=== PATIENT | female | born 1960 | race African-American/Black ===

== ENCOUNTER → 2016-07-06 | Outpatient (CLI) | payer MEDICARE, MEDICAID ==
[2016-07-06 10:54] LABS: HEMATOCRIT 27.6 % (36.0-47.0); HEMOGLOBIN 8.7 g/dL (12.0-15.5); HGB HCT DIFFERENCE -1.5; MEAN CORPUSCULAR HEMOGLOBIN 25.7 pg (27.0-33.4); MEAN CORPUSCULAR HGB CONC 31.7 g/dL (32.0-36.0); MEAN CORPUSCULAR VOLUME 81 fl (80-97); RED CELL DISTRIBUTION WIDTH 18.2 % (11.5-14.0); WHITE BLOOD COUNT 9.4 10^3/uL (4.0-10.5)
[2016-07-06 11:20] LABS: ANION GAP 15 (5-19); BLOOD UREA NITROGEN 15 mg/dL (7-20); CALCIUM 9.7 mg/dL (8.4-10.2); CARBON DIOXIDE 26 mmol/L (22-30); CHLORIDE 103 mmol/L (98-107); GLUCOSE 111 mg/dL (75-110); POTASSIUM 4.8 mmol/L (3.6-5.0); SODIUM 143.6 mmol/L (137-145)
== END ==
LOC: OD 08:47
PROVIDERS: ATTEND Internal Medicine Nephrology
DX: E11.22 Type 2 diabetes mellitus with diabetic chronic kidney disease (principal); N18.3 Chronic kidney disease, stage 3 (moderate); D63.1 Anemia in chronic kidney disease; I50.9 Heart failure, unspecified
CPT/HCPCS: 36415; 80048; 85027

== ENCOUNTER 2016-07-11 23:40 | Emergency (ER) | payer MEDICARE, MEDICAID ==
[2016-07-12] MEDS ORDERED: NITROGLYCERIN 2% OINTMENT 1 GM PACKET TP ONE (00:27)
--- NOTE | 2016-07-12 00:27 | ER Document Report ---
ED Cardiac - General Chief Complaint: Chest Wall Pain Stated Complaint: CHEST PAIN Time seen by provider: 00:25 Mode of Arrival: Ambulatory Information source: Patient Notes: This is a 56-year-old female with a history of morbid obesity, COPD (2 L nasal cannula, CPAP at night), CHF, anemia. The patient was brought in by ambulance because of some shortness of breath. Patient states she was having a bowel movement, when she noticed some bright red per rectum and some "tarry stools". Patient states she got very nervous and started having some shortness of breath. She states she had 15 minutes chest heaviness but she thinks it was more the shortness of breath. Currently, she denies any chest pain or shortness of breath. TRAVEL OUTSIDE OF THE [place] IN LAST 30 DAYS: No - HPI Patient complains to provider of: Shortness of breath Was the onset of pain: Gradual Chest pain location: No: Substernal, Axillary, Back, Pleuritic, Under breast, Other Quality of pain: denies: None, Constant, Intermittent, Mild, Moderate, Severe, Achy, Burning, Constriction, Cramping, Crushing, Dull, Heaviness, Incisional, Indigestion, Numbness, Pressure, Radiating, Sharp, Stabbing, Tearing, Throbbing , Tightness, Tingling, Other Severity now: None Severity at worst: Mild Pain level currently: Denies Chest pain precipitating factors: Mental Exertion/Stress Cardiac risk factors: Hypertension Positive cardiac history: Yes Associated symptoms: Shortness of breath. denies: Cool extremities, Fever/ chills, Hypotension Exacerbated by: Denies Relieved by: Nothing Similar symptoms previously: Yes Recently seen / treated by doctor: Yes - Related Data Allergies/Adverse Reactions: cephalexin monohydrate [From Keflex] Allergy (Unknown, Verified 05/09/16 01:16) codeine [Codeine] Allergy (Unknown, Verified 05/09/16 01:16) dicyclomine HCl [From Bentyl] Allergy (Unknown, Verified 05/09/16 01:16) hydrocodone bitartrate [From Vicodin] Allergy (Unknown, Verified 05/09/16 01:16) meloxicam [From Mobic] Allergy (Unknown, Verified 05/09/16 01:16) meperidine HCl [From Demerol (PF)] Allergy (Unknown, Verified 05/09/16 01:16) morphine [Morphine] Allergy (Unknown, Verified 05/09/16 01:16) naproxen sodium [From Naprelan CR Dosepak] Allergy (Unknown, Verified 05/09/16 01:16) nitrofurantoin [From Macrobid] Allergy (Unknown, Verified 05/09/16 01:16) pantoprazole sodium [From Protonix] Allergy (Unknown, Verified 05/09/16 01:16) Penicillins Allergy (Unknown, Verified 05/09/16 01:16) Sulfa (Sulfonamide Antibiotics) Allergy (Unknown, Verified 05/09/16 01:16) tramadol HCl [From Ultracet] Allergy (Unknown, Verified 05/09/16 01:16) lamotrigine [From Lamictal] Allergy (Verified 05/09/16 01:16) rash oxycodone HCl [From Percocet] Adverse Reaction (Unknown, Verified 05/09/16 01:16 ) Past Medical History - General Information source: Patient - Social History Smoking Status: Never Smoker Cigarette use (# per day): No Chew tobacco use (# tins/day): No Frequency of alcohol use: None Drug Abuse: None Lives with: Family Family History: Reviewed & Not Pertinent Patient has suicidal ideation: No Patient has homicidal ideation: No - Past Medical History Cardiac Medical History: Reports: Hx Congestive Heart Failure, Hx Coronary Artery Disease, Hx Heart Attack, Hx Hypercholesterolemia, Hx Hypertension, Hx Peripheral Vascular Disease Denies: Hx Heart Murmur Pulmonary Medical History: Reports: Hx Asthma, Hx Bronchitis, Hx COPD - Oxygen use at home, inhaler., Hx Sleep Apnea Denies: Hx Respiratory Failure, Hx Tuberculosis Neurological Medical History: Reports: Hx Migraine, Hx Seizures Endocrine Medical History: Reports: Hx Diabetes Mellitus Type 2, Hx Hyperthyroidism, Hx Hypothyroidism Renal/ Medical History: Reports: Hx End Stage Renal Disease - Stage IV, Hx Renal Insufficiency GI Medical History: Reports: Hx Gastroesophageal Reflux Disease Musculoskeltal Medical History: Reports Hx Fibromyalgia, Reports Hx Muscle Weakness Psychiatric Medical History: Reports: Hx Bipolar Disorder, Hx Depression, Hx Post Traumatic Stress Disorder, Hx Schizophrenia Past Surgical History: Reports: Hx Cardiac Catheterization, Hx Section - x2, Hx Coronary Artery Bypass Graft, Hx Coronary Stent - x2, Hx Hysterectomy, Hx Orthopedic Surgery - christine knee surgery, christine feet surgery, Hx Tubal Ligation - Immunizations Hx Diphtheria, Pertussis, Tetanus Vaccination: Yes Hx Pneumococcal Vaccination: 04/02/13 Review of Systems - Review of Systems Constitutional: denies: Chills, Fever EENT: No symptoms reported Cardiovascular: See HPI Respiratory: See HPI Gastrointestinal: See HPI Genitourinary: No symptoms reported Female Genitourinary: No symptoms reported Musculoskeletal: No symptoms reported Skin: No symptoms reported Hematologic/Lymphatic: No symptoms reported Neurological/Psychological: No symptoms reported Physical Exam - Vital signs Vitals: Temp Pulse Ox 97.7 F 100 07/11/16 23:53 07/11/16 23:53 Notes: Physical exam: GENERAL: 56-year-old female, alert and oriented 3, no acute distress HEAD: Atraumatic, normocephalic. EYES: Pupils equal round and reactive to light, extraocular movements intact, sclera anicteric, conjunctiva are normal. ENT: TMs normal, nares patent, oropharynx clear without exudates. Moist mucous membranes. NECK: Normal range of motion, supple without lymphadenopathy or JVD. LUNGS: Breath sounds clear to auscultation bilaterally and equal. No wheezes rales or rhonchi. HEART: Regular rate and rhythm without murmurs, rubs or gallops. ABDOMEN: Soft, nontender, normoactive bowel sounds. No guarding, no rebound. No masses appreciated. Rectum: No external hemorrhoids or lesions, Brown stool guaiac negative. EXTREMITIES: Normal range of motion, no pitting or edema. No clubbing or cyanosis. NEUROLOGICAL: Cranial nerves II through XII grossly intact. Normal speech, normal gait. PSYCH: Normal mood, normal affect. SKIN: Warm, Dry, normal turgor, no rashes or lesions noted. Course - Re-evaluation Re-evalutation: 07/12/16 02:50 Note: The patient is comfortable right now. She denies having any further chest pain or shortness of breath. She thinks she got anxious when she saw the blood in the stool and is felt fine ever since. 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 I ended up doing a rectal exam twice to ensure that there was no active bleeding. The stool sample showed no blood. The patient's vital signs and blood work is been good. 07/12/16 02:51 - Vital Signs Vital signs: Temp Pulse Resp BP Pulse Ox 97.7 F 14 100 07/11/16 23:53 07/12/16 00:25 07/12/16 00:25 - Laboratory Result Diagrams: 07/12/16 01:52 07/12/16 01:52 Laboratory results interpreted by me: 07/12/16 07/12/16 01:52 01:52 RBC 3.32 L Hgb 8.5 L Hct 26.3 L MCV 79 L MCH 25.6 L RDW 18.0 H Est GFR ( Amer) 58 L Est GFR (Non-Af Amer) 48 L Glucose 69 L Alkaline Phosphatase 145 H - Diagnostic Test Radiology reviewed: Image reviewed, Reports reviewed - Chest x-ray is It's read as congestive heart failure/pulmonary edema, however, the x-ray is limited significantly by body habitus. - EKG Interpretation by Me Rate: Normal Rhythm: NSR - EKG shows normal sinus rhythm with a ventricular rate of 80, no acute ST-T wave changes Discharge - Discharge Clinical Impression: dyspnea, blood in the stool Condition: Stable Disposition: HOME, SELF-CARE Additional Instructions: Recommendations: Continue current medicines. Follow-up with Dr. Gaines as later this morning. Return to the emergency room for any worsening chest pain or shortness of breath. Referrals: JASSON MARTINI MD [Primary Care Provider] - Follow up in 3-5 days ANTOINE GAINES MD [ACTIVE STAFF] - Follow up tomorrow (Follow-up with Dr. Gaines as planned tomorrow.)
[2016-07-12 02:13] LABS: ABSOLUTE EOSINOPHILS # (AUTO) 0.3 10^3/uL (0.0-0.6); ABSOLUTE MONOCYTES (AUTO) 0.5 10^3/uL (0.1-1.4); BASOPHILS % (AUTO) 0.4 % (0-2); EOSINOPHILS % (AUTO) 3.8 % (0-6); HEMATOCRIT 26.3 % (36.0-47.0); HEMOGLOBIN 8.5 g/dL (12.0-15.5); HGB HCT DIFFERENCE -0.8; MEAN CORPUSCULAR HEMOGLOBIN 25.6 pg (27.0-33.4); MEAN CORPUSCULAR HGB CONC 32.2 g/dL (32.0-36.0); MEAN CORPUSCULAR VOLUME 79 fl (80-97); MONOCYTES % (AUTO) 5.8 % (3-13); RED BLOOD COUNT 3.32 10^6/uL (3.72-5.28); WHITE BLOOD COUNT 7.9 10^3/uL (4.0-10.5)
[2016-07-12 02:29] LABS: ALANINE AMINOTRANSFERASE 28 U/L (9-52); ALKALINE PHOSPHATASE 145 U/L (38-126); ANION GAP 12 (5-19); ASPARTATE AMINO TRANSFERASE 19 U/L (14-36); BILIRUBIN,TOTAL 0.2 mg/dL (0.2-1.3); BLOOD UREA NITROGEN 16 mg/dL (7-20); CALCIUM 9.4 mg/dL (8.4-10.2); CARBON DIOXIDE 30 mmol/L (22-30); CHLORIDE 103 mmol/L (98-107); CREATINE KINASE 48 U/L (30-135); CREATININE RESULT 1.17 mg/dL (0.52-1.25); GLUCOSE 69 mg/dL (75-110); POTASSIUM 4.6 mmol/L (3.6-5.0); TOTAL PROTEIN 7.7 g/dL (6.3-8.2)
[2016-07-12 02:37] LABS: CREATINE KINASE MB < 0.22 ng/mL (<4.55); TROPONIN I < 0.012 ng/mL
[2016-07-12 03:11] VITALS: BP 121/78
--- NOTE | 2016-07-12 07:20 | EKG REPORT ---
SEVERITY:- NORMAL ECG - SINUS RHYTHM : Confirmed by: Guillermina King MD 12-Jul-2016 07:19:59
== END 2016-07-12 03:31 | disposition home or self-care (01) ==
LOC: ER 23:40
DX: R06.00 Dyspnea, unspecified (principal); K92.1 Melena; R07.81 Pleurodynia; J44.9 Chronic obstructive pulmonary disease, unspecified; E66.01 Morbid (severe) obesity due to excess calories; J45.909 Unspecified asthma, uncomplicated; E11.22 Type 2 diabetes mellitus with diabetic chronic kidney disease; I13.2 Hypertensive heart and chronic kidney disease with heart failure and with stage 5 chronic kidney disease, or end stage renal disease; N18.5 Chronic kidney disease, stage 5; I50.9 Heart failure, unspecified; I25.10 Atherosclerotic heart disease of native coronary artery without angina pectoris; E78.00 Pure hypercholesterolemia, unspecified; Z99.81 Dependence on supplemental oxygen; Z88.2 Allergy status to sulfonamides; Z88.6 Allergy status to analgesic agent; Z88.0 Allergy status to penicillin; Z88.3 Allergy status to other anti-infective agents; I25.2 Old myocardial infarction
CPT/HCPCS: 93005; 99285; 36415; 82553; 82550; 85025; 82272; 80053; 84484; 71010; 93010; A9270

== ENCOUNTER 2016-07-27 19:31 | Emergency (ER) | payer MEDICARE, MEDICAID ==
--- NOTE | 2016-07-27 21:05 | ER Document Report ---
ED Medical Screen (RME) - General Stated Complaint: LEG SWELLING Notes: 56 yo female brought to Ed by EMS c/o leg/feet swelling, pain all over x 5 days. pt poor historian. EMS reports patient has not taken meds x 5 days. reports she hides her meds from her family and she cant remember where she put them, but patient reports she is taking her meds as prescribed. also c/o rectal bleeding x 1 month. Has been seen by her PCM, Dr Sharp for rectal bleeding last month. no chest pain. + shortness of breath no fever TRAVEL OUTSIDE OF THE [place] IN LAST 30 DAYS: No - Related Data Allergies/Adverse Reactions: cephalexin monohydrate [From Keflex] Allergy (Unknown, Verified 05/09/16 01:16) codeine [Codeine] Allergy (Unknown, Verified 05/09/16 01:16) dicyclomine HCl [From Bentyl] Allergy (Unknown, Verified 05/09/16 01:16) hydrocodone bitartrate [From Vicodin] Allergy (Unknown, Verified 05/09/16 01:16) meloxicam [From Mobic] Allergy (Unknown, Verified 05/09/16 01:16) meperidine HCl [From Demerol (PF)] Allergy (Unknown, Verified 05/09/16 01:16) morphine [Morphine] Allergy (Unknown, Verified 05/09/16 01:16) naproxen sodium [From Naprelan CR Dosepak] Allergy (Unknown, Verified 05/09/16 01:16) nitrofurantoin [From Macrobid] Allergy (Unknown, Verified 05/09/16 01:16) pantoprazole sodium [From Protonix] Allergy (Unknown, Verified 05/09/16 01:16) Penicillins Allergy (Unknown, Verified 05/09/16 01:16) Sulfa (Sulfonamide Antibiotics) Allergy (Unknown, Verified 05/09/16 01:16) tramadol HCl [From Ultracet] Allergy (Unknown, Verified 05/09/16 01:16) lamotrigine [From Lamictal] Allergy (Verified 05/09/16 01:16) rash oxycodone HCl [From Percocet] Adverse Reaction (Unknown, Verified 05/09/16 01:16 ) Past Medical History - Past Medical History Cardiac Medical History: Reports: Hx Congestive Heart Failure, Hx Coronary Artery Disease, Hx Heart Attack, Hx Hypercholesterolemia, Hx Hypertension, Hx Peripheral Vascular Disease Denies: Hx Heart Murmur Pulmonary Medical History: Reports: Hx Asthma, Hx Bronchitis, Hx COPD - Oxygen use at home, inhaler., Hx Sleep Apnea Denies: Hx Respiratory Failure, Hx Tuberculosis Neurological Medical History: Reports: Hx Migraine, Hx Seizures Endocrine Medical History: Reports: Hx Diabetes Mellitus Type 2, Hx Hyperthyroidism, Hx Hypothyroidism Renal/ Medical History: Reports: Hx End Stage Renal Disease - Stage IV, Hx Renal Insufficiency GI Medical History: Reports: Hx Gastroesophageal Reflux Disease Musculoskeltal Medical History: Reports Hx Fibromyalgia, Reports Hx Muscle Weakness Psychiatric Medical History: Reports: Hx Bipolar Disorder, Hx Depression, Hx Post Traumatic Stress Disorder, Hx Schizophrenia Past Surgical History: Reports: Hx Cardiac Catheterization, Hx Section - x2, Hx Coronary Artery Bypass Graft, Hx Coronary Stent - x2, Hx Hysterectomy, Hx Orthopedic Surgery - christine knee surgery, christine feet surgery, Hx Tubal Ligation - Immunizations Hx Diphtheria, Pertussis, Tetanus Vaccination: Yes
[2016-07-27] MEDS ORDERED: FUROSEMIDE INJ/PF 40 MG/4 ML SDV IV ONE (22:47)
--- NOTE | 2016-07-27 22:56 | ER Document Report ---
ED General - General Chief Complaint: Leg Swelling Stated Complaint: LEG SWELLING Notes: Patient is a 56-year-old female who has history of CHF who presents with leg and feet swelling. She also some swelling and her upper extremities as well. Patient says that she is on Lasix 60 mg twice a day. She says that she's had increased swelling over last 2 weeks. She also says she wears oxygen at home. She has a concentrator to fill are tense. She says she does not feel her tanks but subsequently they fill them she gets home. She does have some baseline shortness of breath but is not worse than usual. She's had no fevers. No chest pain. No other complaints at this time. The EMS report was that the patient told them that she had not had her Lasix for 2 days. She tells me that she has taken her Lasix. TRAVEL OUTSIDE OF THE [place] IN LAST 30 DAYS: No - Related Data Allergies/Adverse Reactions: cephalexin monohydrate [From Keflex] Allergy (Unknown, Verified 07/28/16 00:47) codeine [Codeine] Allergy (Unknown, Verified 07/28/16 00:47) dicyclomine HCl [From Bentyl] Allergy (Unknown, Verified 07/28/16 00:47) hydrocodone bitartrate [From Vicodin] Allergy (Unknown, Verified 07/28/16 00:47) meloxicam [From Mobic] Allergy (Unknown, Verified 07/28/16 00:47) meperidine HCl [From Demerol (PF)] Allergy (Unknown, Verified 07/28/16 00:47) morphine [Morphine] Allergy (Unknown, Verified 07/28/16 00:47) naproxen sodium [From Naprelan CR Dosepak] Allergy (Unknown, Verified 07/28/16 00:47) nitrofurantoin [From Macrobid] Allergy (Unknown, Verified 07/28/16 00:47) pantoprazole sodium [From Protonix] Allergy (Unknown, Verified 07/28/16 00:47) Penicillins Allergy (Unknown, Verified 07/28/16 00:47) Sulfa (Sulfonamide Antibiotics) Allergy (Unknown, Verified 07/28/16 00:47) tramadol HCl [From Ultracet] Allergy (Unknown, Verified 07/28/16 00:47) lamotrigine [From Lamictal] Allergy (Verified 07/28/16 00:47) rash oxycodone HCl [From Percocet] Adverse Reaction (Unknown, Verified 07/28/16 00:47 ) Past Medical History - Social History Smoking Status: Never Smoker Chew tobacco use (# tins/day): No Frequency of alcohol use: None Drug Abuse: None Family History: Reviewed & Not Pertinent Patient has suicidal ideation: No Patient has homicidal ideation: No - Past Medical History Cardiac Medical History: Reports: Hx Congestive Heart Failure, Hx Coronary Artery Disease, Hx Heart Attack, Hx Hypercholesterolemia, Hx Hypertension, Hx Peripheral Vascular Disease Denies: Hx Heart Murmur Pulmonary Medical History: Reports: Hx Asthma, Hx Bronchitis, Hx COPD - Oxygen use at home, inhaler., Hx Sleep Apnea Denies: Hx Respiratory Failure, Hx Tuberculosis Neurological Medical History: Reports: Hx Migraine, Hx Seizures Endocrine Medical History: Reports: Hx Diabetes Mellitus Type 2, Hx Hyperthyroidism, Hx Hypothyroidism Renal/ Medical History: Reports: Hx End Stage Renal Disease - Stage IV, Hx Renal Insufficiency. Denies: Hx Peritoneal Dialysis GI Medical History: Reports: Hx Gastroesophageal Reflux Disease Musculoskeltal Medical History: Reports Hx Fibromyalgia, Reports Hx Muscle Weakness Psychiatric Medical History: Reports: Hx Bipolar Disorder, Hx Depression, Hx Post Traumatic Stress Disorder, Hx Schizophrenia Past Surgical History: Reports: Hx Cardiac Catheterization, Hx Section - x2, Hx Coronary Artery Bypass Graft, Hx Coronary Stent - x2, Hx Hysterectomy, Hx Orthopedic Surgery - christine knee surgery, christine feet surgery, Hx Tubal Ligation - Immunizations Hx Diphtheria, Pertussis, Tetanus Vaccination: Yes Hx Pneumococcal Vaccination: 04/02/13 Review of Systems - Review of Systems Notes: My Normal Review Basic REVIEW OF SYSTEMS: CONSTITUTIONAL : Denies fever, chills, or sweats. Denies recent illness. EENT: Denies eye, ear, throat, or mouth pain or symptoms. Denies nasal or sinus congestion. CARDIOVASCULAR: Denies chest pain. RESPIRATORY: Mild chronic shortness of breath. GASTROINTESTINAL: Denies abdominal pain. Denies nausea, vomiting, or diarrhea. Denies constipation. Last BM: GENITOURINARY: Denies difficulty urinating, painful urination, burning, frequency, or blood in urine. MUSCULOSKELETAL: Lower extremity swelling SKIN: Denies rash or skin lesions. NEUROLOGICAL: Denies altered mental status or loss of consciousness. Denies headache. Denies weakness or paralysis or loss of use of either side. Denies problems with gait or speech. Denies sensory or motor loss. ALL OTHER SYSTEMS REVIEWED AND NEGATIVE. Physical Exam - Vital signs Vitals: Temp Pulse BP Pulse Ox 97.7 F 91 153/84 H 98 07/27/16 20:10 07/27/16 20:10 07/27/16 20:10 07/27/16 20:10 - Notes Notes: General Appearance: Well nourished, alert, cooperative, no acute distress, no obvious discomfort. Well-appearing. No increased respiratory effort on exam. Vitals: reviewed, See vital signs table. Head: no swelling or tenderness to the head Eyes: PERRL, EOMI, Conjuctiva clear Mouth: No decreasd moisture Neck: Supple, no neck tenderness, No thyromegaly Lungs: No wheezing, No rales, No rhonci, No accessory muscle use, good air exchange bilaterally. Heart: Normal rate, Regular rythm, No murmur, no rub Abdomen: Normal BS, soft, No rigidity, No abdominal tenderness, No guarding, no rebound, no abdominal masses, no organomegaly Extremities: strength 5/5 in all extremities, good pulses in all extremities, no swelling or tenderness in the extremities, 3+ bilateral lower extremity edema. 1+ bilateral upper extremity edema. Skin: warm, dry, appropriate color, no rash Neuro: speech clear, oriented x 3, normal affect, responds appropriately to questions. Course - Vital Signs Vital signs: Temp Pulse Resp BP Pulse Ox 97.5 F 86 20 115/73 100 07/28/16 00:33 07/28/16 00:33 07/28/16 00:33 07/28/16 00:33 07/28/16 00:33 - Transfer of Care Notes: 07/28/16 06:36 The nurse did attempt to access her port. She was unable to access it the first time. When the nurse went to access it the second time the patient refused. The patient told the nurse that she did not want any attempts at IV sticks and that she wanted to go home. I did go back and speak with the patient. I informed her that without blood work for cannot complete a workup and cannot determine if she be safe to be discharged home. I informed her that there is some fluid on her lungs on chest x-ray. Currently patient is in no respiratory distress and lungs are clear to auscultation; however, it is concerning to me that she's had increasing edema in her extremities now we are seeing some fluid on her chest x-ray. I informed her that I strongly recommend that she stay and that she allow me to give her Lasix thru the IV and obtain blood work for further evaluation. I informed her that if she goes home she could eventually have difficulty breathing which could lead to . Patient shows understanding of this but still refuses to stay and refuses any other needle sticks. Patient requests to be discharged home against medical laboratory technician. I informed the patient that she's more than welcome to return to the ER at anytime and we actually encourage her to return as soon as possible so that we can reevaluate her and treat her. If she is unwilling to come to the ER than she needs to at least follow very closely with her primary care doctor. Patient acknowledges understanding of this. Dictation of this chart was performed using voice recognition software; therefore, there may be some unintended grammatical errors. Discharge - Discharge Clinical Impression: Edema Qualifiers: Edema type: unspecified Qualified Code(s): R60.9 - Edema, unspecified CHF (congestive heart failure) Qualifiers: Congestive heart failure type: unspecified congestive heart failure type Congestive heart failure chronicity: acute on chronic Qualified Code(s): I50.9 - Heart failure, unspecified Condition: Stable Disposition: AGAINST MEDICAL ADVICE Additional Instructions: As discussed with you I suspect that your swelling will get worse and this could lead to difficulty breathing and potentially if you worsen and are unable to get back to the ER. This is why we strongly recommend you stay for further workup and treatment of your edema. We respect your choice to sign out against medical advice, but strongly encourage you to return to the ER at anytime for further treatment. You are welcome back anytime and we are happy to care for you. Please take your lasix as prescribed. Please avoid salt in your diet. Referrals: JASSON MARTINI MD [Primary Care Provider] - Follow up tomorrow
[2016-07-28] MEDS ORDERED: FUROSEMIDE 80 MG TABLET PO ONE (00:08)
[2016-07-28 00:41] VITALS: BP 115/73
[2016-07-28] MEDS ORDERED: FUROSEMIDE 80 MG TABLET ONE (00:50)
== END 2016-07-28 01:00 | disposition left against medical advice (07) ==
LOC: ER 19:31
DX: I13.2 Hypertensive heart and chronic kidney disease with heart failure and with stage 5 chronic kidney disease, or end stage renal disease (principal); I50.9 Heart failure, unspecified; E11.22 Type 2 diabetes mellitus with diabetic chronic kidney disease; I12.0 Hypertensive chronic kidney disease with stage 5 chronic kidney disease or end stage renal disease; N18.6 End stage renal disease; I25.10 Atherosclerotic heart disease of native coronary artery without angina pectoris; I25.2 Old myocardial infarction; J45.909 Unspecified asthma, uncomplicated; J44.9 Chronic obstructive pulmonary disease, unspecified; Z99.81 Dependence on supplemental oxygen; Z79.899 Other long term (current) drug therapy; Z88.1 Allergy status to other antibiotic agents; Z88.5 Allergy status to narcotic agent; Z88.8 Allergy status to other drugs, medicaments and biological substances; Z95.1 Presence of aortocoronary bypass graft; Z98.61 Coronary angioplasty status; Z53.20 Procedure and treatment not carried out because of patient's decision for unspecified reasons
CPT/HCPCS: 36591; 99283; 71020; A9270; J3490

== ENCOUNTER 2016-08-03 23:05 | Emergency (ER) | payer MEDICARE, MEDICAID ==
[2016-08-03 23:38] VITALS: BP 123/71
--- NOTE | 2016-08-04 00:28 | ER Document Report ---
ED Medical Screen (RME) - General Chief Complaint: Rectal Bleeding Stated Complaint: RECTAL BLEEDING Notes: Patient is a 56-year-old female that comes emergency department for chief complaint of a black bowel movement, patient states she had abdominal cramping earlier. She denies current abdominal pain. She is had an endoscopy 6 months ago which showed peptic ulcers reportedly, she states that she is on Plavix. Patient denies dizziness or shortness of breath. TRAVEL OUTSIDE OF THE [place] IN LAST 30 DAYS: No - Related Data Allergies/Adverse Reactions: cephalexin monohydrate [From Keflex] Allergy (Unknown, Verified 07/28/16 00:47) codeine [Codeine] Allergy (Unknown, Verified 07/28/16 00:47) dicyclomine HCl [From Bentyl] Allergy (Unknown, Verified 07/28/16 00:47) hydrocodone bitartrate [From Vicodin] Allergy (Unknown, Verified 07/28/16 00:47) meloxicam [From Mobic] Allergy (Unknown, Verified 07/28/16 00:47) meperidine HCl [From Demerol (PF)] Allergy (Unknown, Verified 07/28/16 00:47) morphine [Morphine] Allergy (Unknown, Verified 07/28/16 00:47) naproxen sodium [From Naprelan CR Dosepak] Allergy (Unknown, Verified 07/28/16 00:47) nitrofurantoin [From Macrobid] Allergy (Unknown, Verified 07/28/16 00:47) pantoprazole sodium [From Protonix] Allergy (Unknown, Verified 07/28/16 00:47) Penicillins Allergy (Unknown, Verified 07/28/16 00:47) Sulfa (Sulfonamide Antibiotics) Allergy (Unknown, Verified 07/28/16 00:47) tramadol HCl [From Ultracet] Allergy (Unknown, Verified 07/28/16 00:47) lamotrigine [From Lamictal] Allergy (Verified 07/28/16 00:47) rash oxycodone HCl [From Percocet] Adverse Reaction (Unknown, Verified 07/28/16 00:47 ) Past Medical History - Social History Chew tobacco use (# tins/day): No Frequency of alcohol use: None Drug Abuse: None - Past Medical History Cardiac Medical History: Reports: Hx Congestive Heart Failure, Hx Coronary Artery Disease, Hx Heart Attack, Hx Hypercholesterolemia, Hx Hypertension, Hx Peripheral Vascular Disease Denies: Hx Heart Murmur Pulmonary Medical History: Reports: Hx Asthma, Hx Bronchitis, Hx COPD - Oxygen use at home, inhaler., Hx Sleep Apnea Denies: Hx Respiratory Failure, Hx Tuberculosis Neurological Medical History: Reports: Hx Migraine, Hx Seizures Endocrine Medical History: Reports: Hx Diabetes Mellitus Type 2, Hx Hyperthyroidism, Hx Hypothyroidism Renal/ Medical History: Reports: Hx End Stage Renal Disease - Stage IV, Hx Renal Insufficiency. Denies: Hx Peritoneal Dialysis GI Medical History: Reports: Hx Gastroesophageal Reflux Disease Musculoskeltal Medical History: Reports Hx Fibromyalgia, Reports Hx Muscle Weakness Psychiatric Medical History: Reports: Hx Bipolar Disorder, Hx Depression, Hx Post Traumatic Stress Disorder, Hx Schizophrenia Past Surgical History: Reports: Hx Cardiac Catheterization, Hx Section - x2, Hx Coronary Artery Bypass Graft, Hx Coronary Stent - x2, Hx Hysterectomy, Hx Orthopedic Surgery - christine knee surgery, christine feet surgery, Hx Tubal Ligation - Immunizations Hx Diphtheria, Pertussis, Tetanus Vaccination: Yes Physical Exam - Vital signs Vitals: Temp Pulse Resp BP Pulse Ox 97.8 F 94 24 H 123/71 97 08/03/16 23:37 08/03/16 23:37 08/03/16 23:37 08/03/16 23:37 08/03/16 23:37 - Abdominal Tenderness: Tender - patient states tenderness, no tenderness noted, limited by sitting and obesity Course - Re-evaluation Re-evalutation: Patient's reported symptoms are concerning for upper GI bleed, however patient is feeding on a large container of guamanian fries during initial interview and can barely be stopped to give history. Abdomen soft. PCC informed, labs ordered. No hypotension or tachycardia. - Vital Signs Vital signs: Temp Pulse Resp BP Pulse Ox 97.8 F 94 24 H 123/71 97 08/03/16 23:37 08/03/16 23:37 08/03/16 23:37 08/03/16 23:37 08/03/16 23:37
== END 2016-08-04 04:00 | disposition left against medical advice (07) ==
LOC: ER 23:05
DX: Z53.9 Procedure and treatment not carried out, unspecified reason (principal); K62.5 Hemorrhage of anus and rectum; R10.9 Unspecified abdominal pain
CPT/HCPCS: 99281

== ENCOUNTER 2016-08-05 08:16 | Emergency (ER) | payer MEDICARE, MEDICAID ==
--- NOTE | 2016-08-05 09:50 | ER Document Report ---
ED General - General Chief Complaint: Rectal Bleeding Stated Complaint: BLEEDING FROM RECTUM Mode of Arrival: Wheelchair Information source: Patient Notes: 56-year-old female who is chronically on 2 L nasal cannula and has been having rectal bleeding now for over 3 months duration presents with complaints of continued rectal bleeding. Patient denies any fevers or chills nausea vomiting or diarrhea. Patient denies any abdominal pain. Patient notes that she had bright red bleeding with clots. Patient notes she has been here multiple times but has never followed up with GI for further evaluation and care TRAVEL OUTSIDE OF THE [place] IN LAST 30 DAYS: No - HPI Onset: Other Onset/Duration: Intermittent Quality of pain: Cramping Severity: Mild Pain Level: 1 Associated symptoms: None Exacerbated by: Denies Relieved by: Denies Similar symptoms previously: Yes Recently seen / treated by doctor: Yes - Related Data Allergies/Adverse Reactions: cephalexin monohydrate [From Keflex] Allergy (Unknown, Verified 08/05/16 08:24) codeine [Codeine] Allergy (Unknown, Verified 08/05/16 08:24) dicyclomine HCl [From Bentyl] Allergy (Unknown, Verified 08/05/16 08:24) hydrocodone bitartrate [From Vicodin] Allergy (Unknown, Verified 08/05/16 08:24) meloxicam [From Mobic] Allergy (Unknown, Verified 08/05/16 08:24) meperidine HCl [From Demerol (PF)] Allergy (Unknown, Verified 08/05/16 08:24) morphine [Morphine] Allergy (Unknown, Verified 08/05/16 08:24) naproxen sodium [From Naprelan CR Dosepak] Allergy (Unknown, Verified 08/05/16 08:24) nitrofurantoin [From Macrobid] Allergy (Unknown, Verified 08/05/16 08:24) pantoprazole sodium [From Protonix] Allergy (Unknown, Verified 08/05/16 08:24) Penicillins Allergy (Unknown, Verified 08/05/16 08:24) Sulfa (Sulfonamide Antibiotics) Allergy (Unknown, Verified 08/05/16 08:24) tramadol HCl [From Ultracet] Allergy (Unknown, Verified 08/05/16 08:24) lamotrigine [From Lamictal] Allergy (Verified 08/05/16 08:24) rash oxycodone HCl [From Percocet] Adverse Reaction (Unknown, Verified 08/05/16 08:24 ) Past Medical History - Social History Smoking Status: Never Smoker Cigarette use (# per day): No Chew tobacco use (# tins/day): No Smoking Education Provided: No Frequency of alcohol use: None Drug Abuse: None Family History: Reviewed & Not Pertinent Patient has suicidal ideation: No Patient has homicidal ideation: No - Past Medical History Cardiac Medical History: Reports: Hx Congestive Heart Failure, Hx Coronary Artery Disease, Hx Heart Attack, Hx Hypercholesterolemia, Hx Hypertension, Hx Peripheral Vascular Disease Denies: Hx Heart Murmur Pulmonary Medical History: Reports: Hx Asthma, Hx Bronchitis, Hx COPD - Oxygen use at home, inhaler., Hx Sleep Apnea Denies: Hx Respiratory Failure, Hx Tuberculosis Neurological Medical History: Reports: Hx Migraine, Hx Seizures Endocrine Medical History: Reports: Hx Diabetes Mellitus Type 2, Hx Hyperthyroidism, Hx Hypothyroidism Renal/ Medical History: Reports: Hx End Stage Renal Disease - Stage IV, Hx Renal Insufficiency. Denies: Hx Peritoneal Dialysis GI Medical History: Reports: Hx Gastroesophageal Reflux Disease Musculoskeltal Medical History: Reports Hx Fibromyalgia, Reports Hx Muscle Weakness Psychiatric Medical History: Reports: Hx Bipolar Disorder, Hx Depression, Hx Post Traumatic Stress Disorder, Hx Schizophrenia Past Surgical History: Reports: Hx Cardiac Catheterization, Hx Section - x2, Hx Coronary Artery Bypass Graft, Hx Coronary Stent - x2, Hx Hysterectomy, Hx Orthopedic Surgery - christine knee surgery, christine feet surgery, Hx Tubal Ligation - Immunizations Hx Diphtheria, Pertussis, Tetanus Vaccination: Yes Hx Pneumococcal Vaccination: 04/02/13 Review of Systems - Review of Systems Notes: REVIEW OF SYSTEMS: CONSTITUTIONAL : Denies fever, chills, or sweats. Denies recent illness. EENT: Denies eye, ear, throat, or mouth pain or symptoms. Denies nasal or sinus congestion or discharge. Denies throat, tongue, or mouth swelling or difficulty swallowing. CARDIOVASCULAR: Denies chest pain. Denies palpitations or racing or irregular heart beat. Denies ankle edema. RESPIRATORY: Denies cough, cold, or chest congestion. Denies shortness of breath, difficulty breathing, or wheezing. GASTROINTESTINAL: Admits to rectal bleeding GENITOURINARY: Denies difficulty urinating, painful urination, burning, frequency, blood in urine, or discharge. FEMALE GENITOURINARY: Denies vaginal bleeding, heavy or abnormal periods, irregular periods. Denies vaginal discharge or odor. MUSCULOSKELETAL: Denies back or neck pain or stiffness. Denies joint pain or swelling. SKIN: Denies rash, lesions or sores. HEMATOLOGIC : Denies easy bruising or bleeding. LYMPHATIC: Denies swollen, enlarged glands. NEUROLOGICAL: Denies confusion or altered mental status. Denies passing out or loss of consciousness. Denies dizziness or lightheadedness. Denies headache. Denies weakness or paralysis or loss of use of either side. Denies problems with gait or speech. Denies sensory loss, numbness, or tingling. Denies seizures. PSYCHIATRIC: Denies anxiety or stress. Denies depression, suicidal ideation, or homicidal ideation. ALL OTHER SYSTEMS REVIEWED AND NEGATIVE. Dictation was performed using [employer] voice recognition software PHYSICAL EXAMINATION: GENERAL: Well-appearing, well-nourished and in no acute distress. HEAD: Atraumatic, normocephalic. EYES: Pupils equal round and reactive to light, extraocular movements intact, conjunctiva are normal. ENT: Nares patent, oropharynx clear without exudates. Moist mucous membranes. NECK: Normal range of motion, supple without lymphadenopathy LUNGS: Breath sounds clear to auscultation bilaterally and equal. No wheezes rales or rhonchi. HEART: Regular rate and rhythm without murmurs ABDOMEN: Soft, nontender, nondistended abdomen. No guarding, no rebound. No masses appreciated. Female : Hemoccult performed with nurse in room Brown stool Musculoskeletal: Normal range of motion, no pitting or edema. No cyanosis. NEUROLOGICAL: Cranial nerves grossly intact. Normal speech, normal gait. Normal sensory, motor exams PSYCH: Normal mood, normal affect. SKIN: Warm, Dry, normal turgor, no rashes or lesions noted. Physical Exam - Vital signs Vitals: Temp Pulse Resp BP Pulse Ox 97.4 F 98 32 H 106/71 98 08/05/16 08:24 08/05/16 08:24 08/05/16 08:24 08/05/16 08:24 08/05/16 08:24 Course - Re-evaluation Re-evalutation: 08/05/16 09:49 Hemoccult does note Brown stool, patient already wants to be discharged home, I explained that I need to do some further testing before she can go home safely 08/05/16 09:55 08/05/16 12:33 Hemoccult was negative, lab work notes no acute abnormality at this time. CMP is still pending 08/05/16 13:08 lab notes mild hyperkalemia patient is very insistent on leaving I will discharge her at her request After performing a Medical Screening Examination, I estimate there is LOW risk for ACUTE APPENDICITIS, BOWEL OBSTRUCTION, ACUTE CHOLECYSTITIS, PERFORATED DIVERTICULITIS, INCARCERATED HERNIA, PANCREATITIS, PELVIC INFLAMMATORY DISEASE, PERFORATED ULCER, ECTOPIC , or TUBO-OVARIAN ABSCESS, thus I consider the discharge disposition reasonable. Also, there is no evidence or peritonitis , sepsis, or toxicity. The patient and I have discussed the diagnosis and risks , and we agree with discharging home with close follow-up with the understanding that symptoms and presentations can change. We also discussed returning to the Emergency Department immediately if new or worsening symptoms occur. We have discussed the symptoms which are most concerning (e.g., bloody stool, fever, changing or worsening pain, vomiting) that necessitate immediate return. - Vital Signs Vital signs: Temp Pulse Resp BP Pulse Ox 97.6 F 98 20 127/72 H 100 08/05/16 13:06 08/05/16 13:06 08/05/16 13:06 08/05/16 13:06 08/05/16 13:06 - Laboratory Result Diagrams: 08/05/16 12:18 08/05/16 12:18 Laboratory results interpreted by me: 08/05/16 08/05/16 12:18 12:18 Hgb 9.1 L Hct 30.1 L MCV 79 L MCH 24.1 L MCHC 30.4 L RDW 17.7 H Potassium 5.2 H BUN 21 H Est GFR ( Amer) 59 L Est GFR (Non-Af Amer) 49 L Glucose 113 H Alkaline Phosphatase 162 H Total Protein 8.4 H Discharge - Discharge Clinical Impression: Rectal bleeding, Chronic diastolic CHF (congestive heart failure), NYHA class 2 Condition: Stable Disposition: HOME, SELF-CARE Instructions: Rectal Bleeding, Unclear Cause ([facility]) Referrals: KEN RAY MD [ACTIVE STAFF] - Follow up in 3-5 days
[2016-08-05 12:31] LABS: ABSOLUTE EOSINOPHILS # (AUTO) 0.3 10^3/uL (0.0-0.6); ABSOLUTE MONOCYTES (AUTO) 0.6 10^3/uL (0.1-1.4); ABSOLUTE NEUT (AUTO) 4.8 10^3/uL (1.7-8.2); BASOPHILS % (AUTO) 0.4 % (0-2); EOSINOPHILS % (AUTO) 3.3 % (0-6); HEMATOCRIT 30.1 % (36.0-47.0); HEMOGLOBIN 9.1 g/dL (12.0-15.5); HGB HCT DIFFERENCE -2.8; LYMPHOCYTES % (AUTO) 26.2 % (13-45); MEAN CORPUSCULAR HEMOGLOBIN 24.1 pg (27.0-33.4); MEAN CORPUSCULAR HGB CONC 30.4 g/dL (32.0-36.0); MEAN CORPUSCULAR VOLUME 79 fl (80-97); MONOCYTES % (AUTO) 8.2 % (3-13); RED CELL DISTRIBUTION WIDTH 17.7 % (11.5-14.0); SEGMENTED NEUTROPHILS % (AUTO) 61.9 % (42-78); WHITE BLOOD COUNT 7.8 10^3/uL (4.0-10.5)
[2016-08-05 13:03] LABS: ALANINE AMINOTRANSFERASE 28 U/L (9-52); ALBUMIN 4.6 g/dL (3.5-5.0); ALKALINE PHOSPHATASE 162 U/L (38-126); ANION GAP 13 (5-19); ASPARTATE AMINO TRANSFERASE 22 U/L (14-36); BILIRUBIN,TOTAL 0.4 mg/dL (0.2-1.3); BLOOD UREA NITROGEN 21 mg/dL (7-20); CALCIUM 9.9 mg/dL (8.4-10.2); CARBON DIOXIDE 29 mmol/L (22-30); CHLORIDE 102 mmol/L (98-107); CREATININE RESULT 1.14 mg/dL (0.52-1.25); GLUCOSE 113 mg/dL (75-110); POTASSIUM 5.2 mmol/L (3.6-5.0); SODIUM 143.5 mmol/L (137-145); TOTAL PROTEIN 8.4 g/dL (6.3-8.2)
[2016-08-05 13:07] VITALS: BP 127/72
== END 2016-08-05 13:15 | disposition home or self-care (01) ==
LOC: ER 08:16
DX: K62.5 Hemorrhage of anus and rectum (principal); I50.32 Chronic diastolic (congestive) heart failure
CPT/HCPCS: 36415; 80053; 82272; 85025; 99283

== ENCOUNTER 2016-08-18 08:05 | Emergency (ER) | payer MEDICARE, MEDICAID ==
--- NOTE | 2016-08-18 09:01 | ER Document Report ---
ED GI/ - General Mode of Arrival: Medic Information source: Patient, Emergency Med Personnel TRAVEL OUTSIDE OF THE [place] IN LAST 30 DAYS: No - HPI Patient complains to provider of: Abdominal pain <RUTH CAMPO - Last Filed: 08/18/16 10:17> <MIKE LEMOS - Last Filed: 08/18/16 11:34> - General Chief Complaint: Rectal Bleeding Stated Complaint: ABDOMINAL PAIN Notes: Patient is a 56-year-old female presenting to the emergency department for rectal bleeding. Patient has been seen in the emergency department multiple times for this symptom. Patient also complains of some abdominal pain. Patient states she decided not sleep last night and she is very drowsy but arousable. Patient states that she has not been drinking any fluids. Patient has a history of diabetes mellitus, TIA, and an unknown type of cancer. Patient has been seen in the emergency department for rectal bleeding and has refused blood transfusions in the past. Patient's parents are Jehovah's Witnesses and patient states that she is not; however this is the underlying reason of why she refuses blood transfusions. Patient is known to the nurse who states that the patient is on sure what type of cancer she has because she will not let tests be run to determine. Patient's PCP is Dr. Sharp. Patient is having bright red blood from her rectum. Patient is wearing pads to help. Patient also has an erythematous and edematous on her right leg. Patient lives at home alone. (RUTH CAMPO) - Related Data Allergies/Adverse Reactions: cephalexin monohydrate [From Keflex] Allergy (Unknown, Verified 08/05/16 08:24) codeine [Codeine] Allergy (Unknown, Verified 08/05/16 08:24) dicyclomine HCl [From Bentyl] Allergy (Unknown, Verified 08/05/16 08:24) hydrocodone bitartrate [From Vicodin] Allergy (Unknown, Verified 08/05/16 08:24) meloxicam [From Mobic] Allergy (Unknown, Verified 08/05/16 08:24) meperidine HCl [From Demerol (PF)] Allergy (Unknown, Verified 08/05/16 08:24) morphine [Morphine] Allergy (Unknown, Verified 08/05/16 08:24) naproxen sodium [From Naprelan CR Dosepak] Allergy (Unknown, Verified 08/05/16 08:24) nitrofurantoin [From Macrobid] Allergy (Unknown, Verified 08/05/16 08:24) pantoprazole sodium [From Protonix] Allergy (Unknown, Verified 08/05/16 08:24) Penicillins Allergy (Unknown, Verified 08/05/16 08:24) Sulfa (Sulfonamide Antibiotics) Allergy (Unknown, Verified 08/05/16 08:24) tramadol HCl [From Ultracet] Allergy (Unknown, Verified 08/05/16 08:24) lamotrigine [From Lamictal] Allergy (Verified 08/05/16 08:24) rash oxycodone HCl [From Percocet] Adverse Reaction (Unknown, Verified 08/05/16 08:24 ) Past Medical History - General Information source: Patient - Social History Smoking Status: Unknown if Ever Smoked Family History: None - Past Medical History Cardiac Medical History: Reports: Hx Congestive Heart Failure, Hx Coronary Artery Disease, Hx Heart Attack, Hx Hypercholesterolemia, Hx Hypertension, Hx Peripheral Vascular Disease Pulmonary Medical History: Reports: Hx Asthma, Hx Bronchitis, Hx COPD - Oxygen use at home, inhaler., Hx Sleep Apnea Neurological Medical History: Reports: Hx Migraine, Hx Seizures Endocrine Medical History: Reports: Hx Diabetes Mellitus Type 2, Hx Hyperthyroidism, Hx Hypothyroidism Renal/ Medical History: Reports: Hx End Stage Renal Disease - Stage IV, Hx Renal Insufficiency GI Medical History: Reports: Hx Gastroesophageal Reflux Disease Musculoskeltal Medical History: Reports Hx Fibromyalgia, Reports Hx Muscle Weakness Psychiatric Medical History: Reports: Hx Bipolar Disorder, Hx Depression, Hx Post Traumatic Stress Disorder, Hx Schizophrenia Past Surgical History: Reports: Hx Cardiac Catheterization, Hx Section - x2, Hx Coronary Artery Bypass Graft, Hx Coronary Stent - x2, Hx Hysterectomy, Hx Orthopedic Surgery - christine knee surgery, christine feet surgery, Hx Tubal Ligation - Immunizations Hx Diphtheria, Pertussis, Tetanus Vaccination: Yes Hx Pneumococcal Vaccination: 04/02/13 <RUTH CAMPO - Last Filed: 08/18/16 10:17> Review of Systems - Review of Systems Constitutional: No symptoms reported EENT: No symptoms reported Cardiovascular: No symptoms reported Respiratory: No symptoms reported Gastrointestinal: See HPI, Abdominal pain, Rectal bleeding Genitourinary: No symptoms reported Female Genitourinary: No symptoms reported Musculoskeletal: No symptoms reported Skin: No symptoms reported Hematologic/Lymphatic: No symptoms reported Neurological/Psychological: No symptoms reported -: Yes All other systems reviewed and negative <RUTH CAMPO - Last Filed: 08/18/16 10:17> Physical Exam - Vital signs Interpretation: Normal - General General appearance: Appears well, Alert, Other - Sleepy but arousable In distress: Mild - HEENT Head: Normocephalic, Atraumatic Eyes: Normal Pupils: PERRL Mouth/Lips: Normal Mucous membranes: Dry Pharynx: Normal - Respiratory Respiratory status: No respiratory distress Chest status: Nontender Breath sounds: Normal Chest palpation: Normal - Cardiovascular Rhythm: Regular Heart sounds: Normal auscultation Murmur: No - Abdominal Inspection: Obese Distension: Distended Bowel sounds: Normal Tenderness: Nontender Organomegaly: No organomegaly - Rectal Tenderness: No Hemorrhoids: None. No: Anal fissure - Back Back: Normal, Nontender - Extremities General upper extremity: Normal inspection, Normal ROM, Normal strength General lower extremity: Other - erythma and discoloration to right lower extremity, this area is warm to touch (warmer than the left lower extremity); 4 + pitting edema bilaterally - Neurological Neuro grossly intact: Yes Cognition: Normal Orientation: AAOx4 Mary Coma Scale Eye Opening: Spontaneous Mary Coma Scale Verbal: Oriented Superior Coma Scale Motor: Obeys Commands Mary Coma Scale Total: 15 Speech: Normal - Psychological Associated symptoms: Normal affect, Normal mood - Skin Skin Temperature: Warm Skin Moisture: Dry <RUTH CAMPO - Last Filed: 08/18/16 10:17> <MIKE LEMOS - Last Filed: 08/18/16 11:34> - Vital signs Vitals: Resp 18 08/18/16 08:05 (MIKE LEMOS) - Rectal Notes: mild amount of bright red blood from rectum, staining undergarments, (RUTH CAMPO) Course - Laboratory Result Diagrams: 08/18/16 10:00 08/18/16 10:00 <RUTH CAMPO - Last Filed: 08/18/16 10:17> - Laboratory Result Diagrams: 08/18/16 10:00 08/18/16 10:00 <MIKE LEMOS - Last Filed: 08/18/16 11:34> - Re-evaluation Re-evalutation: 08/18/16 09:47 Patient presents with history of rectal bleeding having been followed by her primary physician for this. Apparently there is some sort of cancer but patient has not allowed complete evaluation to definitively determine this. The patient has presented multiple times in the past for vaginal/rectal bleeding. Reportedly she is a Gnosticist and will not accept blood products. I did ask her this today and she says that her parents are Jehovah's Witnesses but that she is not. However, she confirms that she does not want any blood products. She says she is having more rectal bleeding today. She complains of lower abdominal discomfort. Denies any chest pain or difficulty breathing. She is in no acute distress. She is somnolent but alert and answers questions appropriately. She is oriented. The patient has abdominal distention but no tenderness. Bowel sounds are present. Patient does have bright red blood per rectum. There is blood staining the anus and in the pad of the depends that she is wearing. Rectal exam is nontender with no masses or fissures. Gross blood on finger. No need for Hemoccult. We will check CBC to assess where patient's hemoglobin is at. Abdominal exam is largely unremarkable do not feel repeated Imaging is warranted today. 08/18/16 11:31 Patient's labs are at her baseline. Her hemoglobin is 9.3 which is stable. Her creatinine is 1.34 and she does have chronic renal insufficiency. Urine was unremarkable. Plan to discharge patient home with follow-up with Dr. Workman (MIKE LEMOS) - Vital Signs Vital signs: Temp Pulse Resp BP Pulse Ox 97.9 F 98 18 121/74 97 08/18/16 08:10 08/18/16 08:10 08/18/16 08:10 08/18/16 08:10 08/18/16 08:10 (RUTH CAMPO) (MIKE LEMOS) - Laboratory Laboratory results interpreted by me: 08/18/16 08/18/16 08/18/16 10:00 10:00 10:06 Hgb 9.3 L Hct 29.9 L MCV 79 L MCH 24.5 L MCHC 31.1 L RDW 18.6 H Creatinine 1.36 H Est GFR ( Amer) 48 L Est GFR (Non-Af Amer) 40 L Glucose 136 H POC Glucose 135 H Alkaline Phosphatase 139 H Discharge <RUTH CAMPO - Last Filed: 08/18/16 10:17> <MIKE LEMOS - Last Filed: 08/18/16 11:34> - Discharge Clinical Impression: Rectal bleeding Condition: Stable Disposition: HOME, SELF-CARE Instructions: Rectal Bleeding, Unclear Cause ([facility]) Additional Instructions: Drink any fluids to stay well hydrated. Please call your doctor for follow-up appointment. Return to emergency department for chest pain, difficult to breathing, or other worsening or concerning symptoms. Scribe Attestation: 08/18/16 11:34 I personally performed the services described in the documentation, reviewed and edited the documentation which was dictated to the scribe in my presence, and it accurately records my words and actions. (MIKE LEMOS) Scribe Documentation - Scribe Written by Scribe:: Ruth Campo 08/18/16 09:30 acting as scribe for :: Tanner <RUTH CAMPO - Last Filed: 08/18/16 10:17>
[2016-08-18 10:13] LABS: ABSOLUTE EOSINOPHILS # (AUTO) 0.2 10^3/uL (0.0-0.6); ABSOLUTE LYMPHOCYTES (AUTO) 2.4 10^3/uL (0.5-4.7); ABSOLUTE MONOCYTES (AUTO) 0.4 10^3/uL (0.1-1.4); ABSOLUTE NEUT (AUTO) 5.3 10^3/uL (1.7-8.2); BASOPHILS % (AUTO) 0.4 % (0-2); EOSINOPHILS % (AUTO) 2.8 % (0-6); HEMATOCRIT 29.9 % (36.0-47.0); HEMOGLOBIN 9.3 g/dL (12.0-15.5); LYMPHOCYTES % (AUTO) 28.9 % (13-45); MEAN CORPUSCULAR HEMOGLOBIN 24.5 pg (27.0-33.4); MEAN CORPUSCULAR HGB CONC 31.1 g/dL (32.0-36.0); MEAN CORPUSCULAR VOLUME 79 fl (80-97); MONOCYTES % (AUTO) 4.7 % (3-13); RED BLOOD COUNT 3.79 10^6/uL (3.72-5.28); RED CELL DISTRIBUTION WIDTH 18.6 % (11.5-14.0); SEGMENTED NEUTROPHILS % (AUTO) 63.2 % (42-78); WHITE BLOOD COUNT 8.5 10^3/uL (4.0-10.5)
[2016-08-18 10:27] LABS: ALANINE AMINOTRANSFERASE 18 U/L (9-52); ALBUMIN 4.2 g/dL (3.5-5.0); ALKALINE PHOSPHATASE 139 U/L (38-126); ANION GAP 13 (5-19); ASPARTATE AMINO TRANSFERASE 20 U/L (14-36); BILIRUBIN,TOTAL 0.4 mg/dL (0.2-1.3); BLOOD UREA NITROGEN 20 mg/dL (7-20); CALCIUM 9.5 mg/dL (8.4-10.2); CARBON DIOXIDE 27 mmol/L (22-30); CHLORIDE 104 mmol/L (98-107); CREATININE RESULT 1.36 mg/dL (0.52-1.25); GLUCOSE 136 mg/dL (75-110); LIPASE 79.8 U/L (23-300); POTASSIUM 4.7 mmol/L (3.6-5.0); SODIUM 143.5 mmol/L (137-145); TOTAL PROTEIN 7.8 g/dL (6.3-8.2)
[2016-08-18 11:25] LABS: APPEARANCE,URINE CLEAR; BILIRUBIN,URINE NEGATIVE (NEGATIVE); GLUCOSE, URINE NEGATIVE (NEGATIVE); KETONES,URINE NEGATIVE (NEGATIVE); LEUKOCYTE ESTERASE,URINE NEGATIVE (NEGATIVE); NITRITE,URINE NEGATIVE (NEGATIVE); PROTEIN,URINE NEGATIVE (NEGATIVE); URINE SPECIFIC GRAVITY 1.014; UROBILINOGEN,URINE NEGATIVE mg/dL (<2.0)
[2016-08-18 12:17] VITALS: BP 121/68
== END 2016-08-18 12:17 | disposition home or self-care (01) ==
LOC: ER 08:05
DX: K62.5 Hemorrhage of anus and rectum (principal); R10.30 Lower abdominal pain, unspecified; L53.9 Erythematous condition, unspecified; R60.0 Localized edema; R40.0 Somnolence; I12.9 Hypertensive chronic kidney disease with stage 1 through stage 4 chronic kidney disease, or unspecified chronic kidney disease; E11.22 Type 2 diabetes mellitus with diabetic chronic kidney disease; N18.9 Chronic kidney disease, unspecified; I25.10 Atherosclerotic heart disease of native coronary artery without angina pectoris; I25.2 Old myocardial infarction; J44.9 Chronic obstructive pulmonary disease, unspecified; J45.909 Unspecified asthma, uncomplicated; Z86.73 Personal history of transient ischemic attack (TIA), and cerebral infarction without residual deficits; Z85.9 Personal history of malignant neoplasm, unspecified; Z88.1 Allergy status to other antibiotic agents; Z88.5 Allergy status to narcotic agent; Z88.8 Allergy status to other drugs, medicaments and biological substances; Z88.0 Allergy status to penicillin; Z88.2 Allergy status to sulfonamides; Z95.1 Presence of aortocoronary bypass graft; Z98.61 Coronary angioplasty status; Z90.710 Acquired absence of both cervix and uterus
CPT/HCPCS: 36415; 80053; 81001; 82962; 83690; 85025; 86850; 86900; 86901; 99283

== ENCOUNTER 2016-08-29 10:54 | Emergency (ER) | payer MEDICARE, MEDICAID ==
--- NOTE | 2016-08-29 11:25 | ER Document Report ---
ED Medical Screen (RME) - General Stated Complaint: RECTAL PROBLEMS Mode of Arrival: Ambulatory Information source: Patient Notes: 56-year-old female presents to the emergency department complaining of rectal bleeding. Reports dark blood from rectum that has been going on for proximately last month. States was seen in the ED for this in the past but left before workup completed. I have greeted and performed a rapid initial assessment of this patient. A comprehensive ED assessment and evaluation of the patient, analysis of test results and completion of the medical decision making process will be conducted by additional ED providers. TRAVEL OUTSIDE OF THE [place] IN LAST 30 DAYS: No - Related Data Allergies/Adverse Reactions: cephalexin monohydrate [From Keflex] Allergy (Unknown, Verified 08/29/16 11:19) codeine [Codeine] Allergy (Unknown, Verified 08/29/16 11:19) dicyclomine HCl [From Bentyl] Allergy (Unknown, Verified 08/29/16 11:19) hydrocodone bitartrate [From Vicodin] Allergy (Unknown, Verified 08/29/16 11:19) meloxicam [From Mobic] Allergy (Unknown, Verified 08/29/16 11:19) meperidine HCl [From Demerol (PF)] Allergy (Unknown, Verified 08/29/16 11:19) morphine [Morphine] Allergy (Unknown, Verified 08/29/16 11:19) naproxen sodium [From Naprelan CR Dosepak] Allergy (Unknown, Verified 08/29/16 11:19) nitrofurantoin [From Macrobid] Allergy (Unknown, Verified 08/29/16 11:19) pantoprazole sodium [From Protonix] Allergy (Unknown, Verified 08/29/16 11:19) Penicillins Allergy (Unknown, Verified 08/29/16 11:19) Sulfa (Sulfonamide Antibiotics) Allergy (Unknown, Verified 08/29/16 11:19) tramadol HCl [From Ultracet] Allergy (Unknown, Verified 08/29/16 11:19) lamotrigine [From Lamictal] Allergy (Verified 08/29/16 11:19) rash Past Medical History - Social History Chew tobacco use (# tins/day): No Frequency of alcohol use: None Drug Abuse: None - Past Medical History Cardiac Medical History: Reports: Hx Congestive Heart Failure, Hx Coronary Artery Disease, Hx Heart Attack, Hx Hypercholesterolemia, Hx Hypertension, Hx Peripheral Vascular Disease Denies: Hx Heart Murmur Pulmonary Medical History: Reports: Hx Asthma, Hx Bronchitis, Hx COPD - Oxygen use at home, inhaler., Hx Sleep Apnea Denies: Hx Respiratory Failure, Hx Tuberculosis Neurological Medical History: Reports: Hx Migraine, Hx Seizures Endocrine Medical History: Reports: Hx Diabetes Mellitus Type 2, Hx Hyperthyroidism, Hx Hypothyroidism Renal/ Medical History: Reports: Hx End Stage Renal Disease - Stage IV, Hx Renal Insufficiency. Denies: Hx Peritoneal Dialysis GI Medical History: Reports: Hx Gastroesophageal Reflux Disease Musculoskeltal Medical History: Reports Hx Fibromyalgia, Reports Hx Muscle Weakness Psychiatric Medical History: Reports: Hx Bipolar Disorder, Hx Depression, Hx Post Traumatic Stress Disorder, Hx Schizophrenia Past Surgical History: Reports: Hx Cardiac Catheterization, Hx Section - x2, Hx Coronary Artery Bypass Graft, Hx Coronary Stent - x2, Hx Hysterectomy, Hx Orthopedic Surgery - christine knee surgery, christine feet surgery, Hx Tubal Ligation - Immunizations Hx Diphtheria, Pertussis, Tetanus Vaccination: Yes Physical Exam - Vital signs Vitals: Temp Pulse Resp BP Pulse Ox 97.6 F 100 22 H 135/69 H 100 08/29/16 11:11 08/29/16 11:11 08/29/16 11:11 08/29/16 11:11 08/29/16 11:11 - General General appearance: Alert In distress: None - Respiratory Respiratory status: No respiratory distress Course - Vital Signs Vital signs: Temp Pulse Resp BP Pulse Ox 97.6 F 100 22 H 135/69 H 100 08/29/16 11:11 08/29/16 11:11 08/29/16 11:11 08/29/16 11:11 08/29/16 11:11
[2016-08-29] MEDS ORDERED: NORMAL SALINE 1000 ML 500 ML IV ONE (12:24)
--- NOTE | 2016-08-29 12:55 | ER Document Report ---
ED General - General Chief Complaint: Rectal Bleeding Stated Complaint: RECTAL PROBLEMS Mode of Arrival: Ambulatory TRAVEL OUTSIDE OF THE [place] IN LAST 30 DAYS: No - HPI Patient complains to provider of: rectal bleeding Notes: Patient coming in for evaluation of rectal bleeding. Patient states is been ongoing for the last 4 days. Patient has a history of multiple visits here to the ER for rectal bleeding. Denies fevers chills nausea vomiting abdominal pain. Patient states most of the bleeding is when she has a bowel movement. Denies dizziness passing out syncope palpitations and weakness - Related Data Allergies/Adverse Reactions: cephalexin monohydrate [From Keflex] Allergy (Unknown, Verified 08/29/16 11:19) codeine [Codeine] Allergy (Unknown, Verified 08/29/16 11:19) dicyclomine HCl [From Bentyl] Allergy (Unknown, Verified 08/29/16 11:19) hydrocodone bitartrate [From Vicodin] Allergy (Unknown, Verified 08/29/16 11:19) meloxicam [From Mobic] Allergy (Unknown, Verified 08/29/16 11:19) meperidine HCl [From Demerol (PF)] Allergy (Unknown, Verified 08/29/16 11:19) morphine [Morphine] Allergy (Unknown, Verified 08/29/16 11:19) naproxen sodium [From Naprelan CR Dosepak] Allergy (Unknown, Verified 08/29/16 11:19) nitrofurantoin [From Macrobid] Allergy (Unknown, Verified 08/29/16 11:19) pantoprazole sodium [From Protonix] Allergy (Unknown, Verified 08/29/16 11:19) Penicillins Allergy (Unknown, Verified 08/29/16 11:19) Sulfa (Sulfonamide Antibiotics) Allergy (Unknown, Verified 08/29/16 11:19) tramadol HCl [From Ultracet] Allergy (Unknown, Verified 08/29/16 11:19) lamotrigine [From Lamictal] Allergy (Verified 08/29/16 11:19) rash Past Medical History - General Information source: Patient - Social History Smoking Status: Never Smoker Chew tobacco use (# tins/day): No Frequency of alcohol use: None Drug Abuse: None Family History: None Patient has suicidal ideation: No Patient has homicidal ideation: No - Past Medical History Cardiac Medical History: Reports: Hx Congestive Heart Failure, Hx Coronary Artery Disease, Hx Heart Attack, Hx Hypercholesterolemia, Hx Hypertension, Hx Peripheral Vascular Disease Denies: Hx Heart Murmur Pulmonary Medical History: Reports: Hx Asthma, Hx Bronchitis, Hx COPD - Oxygen use at home, inhaler., Hx Sleep Apnea Denies: Hx Respiratory Failure, Hx Tuberculosis Neurological Medical History: Reports: Hx Migraine, Hx Seizures Endocrine Medical History: Reports: Hx Diabetes Mellitus Type 2, Hx Hyperthyroidism, Hx Hypothyroidism Renal/ Medical History: Reports: Hx End Stage Renal Disease - Stage IV, Hx Renal Insufficiency. Denies: Hx Peritoneal Dialysis GI Medical History: Reports: Hx Gastroesophageal Reflux Disease Musculoskeltal Medical History: Reports Hx Fibromyalgia, Reports Hx Muscle Weakness Psychiatric Medical History: Reports: Hx Bipolar Disorder, Hx Depression, Hx Post Traumatic Stress Disorder, Hx Schizophrenia Past Surgical History: Reports: Hx Cardiac Catheterization, Hx Section - x2, Hx Coronary Artery Bypass Graft, Hx Coronary Stent - x2, Hx Hysterectomy, Hx Orthopedic Surgery - christine knee surgery, christine feet surgery, Hx Tubal Ligation - Immunizations Hx Diphtheria, Pertussis, Tetanus Vaccination: Yes Hx Pneumococcal Vaccination: 04/02/13 Review of Systems - Review of Systems Constitutional: No symptoms reported EENT: No symptoms reported Cardiovascular: No symptoms reported Respiratory: No symptoms reported Gastrointestinal: Rectal bleeding Genitourinary: No symptoms reported Female Genitourinary: No symptoms reported Musculoskeletal: No symptoms reported Skin: No symptoms reported Hematologic/Lymphatic: No symptoms reported Neurological/Psychological: No symptoms reported -: Yes All other systems reviewed and negative Physical Exam - Vital signs Vitals: Temp Pulse Resp BP Pulse Ox 97.6 F 100 22 H 135/69 H 100 08/29/16 11:11 08/29/16 11:11 08/29/16 11:11 08/29/16 11:11 08/29/16 11:11 Interpretation: Normal - General General appearance: Appears well, Alert - HEENT Head: Normocephalic, Atraumatic Eyes: Normal Pupils: PERRL - Respiratory Respiratory status: No respiratory distress Chest status: Nontender Breath sounds: Normal Chest palpation: Normal - Cardiovascular Rhythm: Regular Heart sounds: Normal auscultation Murmur: No - Abdominal Inspection: Normal Distension: No distension Bowel sounds: Normal Tenderness: Nontender Organomegaly: No organomegaly - Rectal Stool: Other - No gross blood on rectal examination Hemorrhoids: Internal, External - Back Back: Normal, Nontender - Extremities General upper extremity: Normal inspection, Nontender, Normal color, Normal ROM , Normal temperature General lower extremity: Normal inspection, Nontender, Normal color, Normal ROM , Normal temperature, Normal weight bearing. No: Erica's sign - Neurological Neuro grossly intact: Yes Cognition: Normal Orientation: AAOx4 [place] Coma Scale Eye Opening: Spontaneous Mary Coma Scale Verbal: Oriented Mary Coma Scale Motor: Obeys Commands Mary Coma Scale Total: 15 Speech: Normal Motor strength normal: LUE, RUE, LLE, RLE Sensory: Normal - Psychological Associated symptoms: Normal affect, Normal mood - Skin Skin Temperature: Warm Skin Moisture: Dry Skin Color: Normal Course - Re-evaluation Re-evalutation: 08/29/16 14:58 Patient examination is consistent with more likely hemorrhoidal bleeding. Attempts to obtain lab work however patient refused stating that she had lab work recently performed the doctor's office prior to arrival here today. His lab work shows that the patient's hemoglobin is 9.4 hematocrit of 30.5. Lab work performed at [facility] gynecology. Intravenous out this looks to be patient's baseline. I did discuss with the patient's PCP states that she is recommended the patient follow-up with surgery and GI multiple times for her rectal bleeding as that she's had multiple colonoscopies showing bleeding from hemorrhoids. I reiterated this with the patient otherwise looks to be stable patient is requesting to be discharged home patient will be discharged home with a now pram for her hemorrhoids. Follow-up information for surgery and gastroenterology were given to the patient - Vital Signs Vital signs: Temp Pulse Resp BP Pulse Ox 98.6 F 88 20 130/70 H 98 08/29/16 14:10 08/29/16 14:10 08/29/16 14:10 08/29/16 14:10 08/29/16 14:10 Discharge - Discharge Clinical Impression: Rectal bleeding, Acute hemorrhoid Condition: Good Disposition: HOME, SELF-CARE Instructions: Hemorrhoids ([facility]), Rectal Bleeding, Unclear Cause ([facility]) Additional Instructions: I believe that your bleeding from your rectum is caused by your hemorrhoids. I would recommend that she stay and be evaluated by your physician and a critical care registered nurse. You have decided to not stay for this evaluation. I will give you hemorrhoid cream to hopefully help out with the bleeding highly recommend following up with your primary care physician for further evaluation. I discussed her case with Dr. Martini please follow-up with the surgeons or the critical care registered nurse provided for care of your hemorrhoids Prescriptions: Hydrocortisone/Pramoxine [Analpram Hc 1% Cream] 30 gm RC TID #1 cream.[email or web address] Referrals: JASSON MARTINI MD [Primary Care Provider] - Follow up as needed GASTROENTEROLOGY [Provider Group] - Follow up as needed SURGERY [Provider Group] - Follow up as needed
[2016-08-29 14:17] VITALS: BP 130/70
== END 2016-08-29 14:10 | disposition home or self-care (01) ==
LOC: ER 10:54
DX: K62.5 Hemorrhage of anus and rectum (principal); K64.9 Unspecified hemorrhoids
CPT/HCPCS: 99283

== ENCOUNTER → 2016-09-08 | Outpatient (CLI) | payer MEDICARE, MEDICAID ==
[2016-09-08 09:29] LABS: HEMATOCRIT 25.7 % (36.0-47.0); HEMOGLOBIN 8.1 g/dL (12.0-15.5); HGB HCT DIFFERENCE -1.4; MEAN CORPUSCULAR HEMOGLOBIN 24.4 pg (27.0-33.4); MEAN CORPUSCULAR HGB CONC 31.7 g/dL (32.0-36.0); MEAN CORPUSCULAR VOLUME 77 fl (80-97); RED BLOOD COUNT 3.35 10^6/uL (3.72-5.28); WHITE BLOOD COUNT 7.9 10^3/uL (4.0-10.5)
[2016-09-08 10:13] LABS: ANION GAP 13 (5-19); BLOOD UREA NITROGEN 18 mg/dL (7-20); CALCIUM 9.9 mg/dL (8.4-10.2); CARBON DIOXIDE 27 mmol/L (22-30); CHLORIDE 104 mmol/L (98-107); CREATININE RESULT 0.99 mg/dL (0.52-1.25); GLUCOSE 79 mg/dL (75-110); MAGNESIUM 2.1 mg/dL (1.6-2.3); POTASSIUM 4.6 mmol/L (3.6-5.0); SODIUM 143.7 mmol/L (137-145)
== END ==
LOC: OD 08:26
PROVIDERS: ATTEND Internal Medicine Nephrology
DX: I12.9 Hypertensive chronic kidney disease with stage 1 through stage 4 chronic kidney disease, or unspecified chronic kidney disease (principal); N18.3 Chronic kidney disease, stage 3 (moderate); E11.9 Type 2 diabetes mellitus without complications; I50.9 Heart failure, unspecified; D64.9 Anemia, unspecified
CPT/HCPCS: 36415; 80048; 83735; 85027

== ENCOUNTER 2016-09-29 10:48 | Inpatient (IN) | payer MEDICARE, MEDICAID ==
--- NOTE | 2016-09-29 12:38 | ER Document Report ---
ED General - General Chief Complaint: Rectal Bleeding Stated Complaint: RECTAL BLEEDING Mode of Arrival: Ambulatory Information source: Patient Notes: 56-year-old female who is on Plavix who has had rectal bleeding in the past presents with complaints of suprapubic bilateral lower quadrant abdominal pain with rectal bleeding. Patient notes it is a darker blood. Denies any nausea or vomiting. TRAVEL OUTSIDE OF THE [place] IN LAST 30 DAYS: No - HPI Onset: Last week Onset/Duration: Persistent Quality of pain: Cramping Severity: Mild Pain Level: 1 Associated symptoms: Other Exacerbated by: Denies Relieved by: Denies Similar symptoms previously: Yes Recently seen / treated by doctor: Yes - Related Data Allergies/Adverse Reactions: cephalexin monohydrate [From Keflex] Allergy (Unknown, Verified 08/29/16 11:19) codeine [Codeine] Allergy (Unknown, Verified 08/29/16 11:19) dicyclomine HCl [From Bentyl] Allergy (Unknown, Verified 08/29/16 11:19) hydrocodone bitartrate [From Vicodin] Allergy (Unknown, Verified 08/29/16 11:19) meloxicam [From Mobic] Allergy (Unknown, Verified 08/29/16 11:19) meperidine HCl [From Demerol (PF)] Allergy (Unknown, Verified 08/29/16 11:19) morphine [Morphine] Allergy (Unknown, Verified 08/29/16 11:19) naproxen sodium [From Naprelan CR Dosepak] Allergy (Unknown, Verified 08/29/16 11:19) nitrofurantoin [From Macrobid] Allergy (Unknown, Verified 08/29/16 11:19) pantoprazole sodium [From Protonix] Allergy (Unknown, Verified 08/29/16 11:19) Penicillins Allergy (Unknown, Verified 08/29/16 11:19) Sulfa (Sulfonamide Antibiotics) Allergy (Unknown, Verified 08/29/16 11:19) tramadol HCl [From Ultracet] Allergy (Unknown, Verified 08/29/16 11:19) lamotrigine [From Lamictal] Allergy (Verified 08/29/16 11:19) rash Past Medical History - Social History Smoking Status: Former Smoker Cigarette use (# per day): No Chew tobacco use (# tins/day): No Smoking Education Provided: No Family History: None - Past Medical History Cardiac Medical History: Reports: Hx Congestive Heart Failure, Hx Coronary Artery Disease, Hx Heart Attack, Hx Hypercholesterolemia, Hx Hypertension, Hx Peripheral Vascular Disease Denies: Hx Heart Murmur Pulmonary Medical History: Reports: Hx Asthma, Hx Bronchitis, Hx COPD - Oxygen use at home, inhaler., Hx Sleep Apnea Denies: Hx Respiratory Failure, Hx Tuberculosis Neurological Medical History: Reports: Hx Migraine, Hx Seizures Endocrine Medical History: Reports: Hx Diabetes Mellitus Type 2, Hx Hyperthyroidism, Hx Hypothyroidism Renal/ Medical History: Reports: Hx End Stage Renal Disease - Stage IV, Hx Renal Insufficiency. Denies: Hx Peritoneal Dialysis GI Medical History: Reports: Hx Gastroesophageal Reflux Disease Musculoskeltal Medical History: Reports Hx Fibromyalgia, Reports Hx Muscle Weakness Psychiatric Medical History: Reports: Hx Bipolar Disorder, Hx Depression, Hx Post Traumatic Stress Disorder, Hx Schizophrenia Past Surgical History: Reports: Hx Cardiac Catheterization, Hx Section - x2, Hx Coronary Artery Bypass Graft, Hx Coronary Stent - x2, Hx Hysterectomy, Hx Orthopedic Surgery - christine knee surgery, christine feet surgery, Hx Tubal Ligation - Immunizations Hx Diphtheria, Pertussis, Tetanus Vaccination: Yes Hx Pneumococcal Vaccination: 04/02/13 Review of Systems - Review of Systems Notes: REVIEW OF SYSTEMS: CONSTITUTIONAL : Denies fever, chills, or sweats. Denies recent illness. EENT: Denies eye, ear, throat, or mouth pain or symptoms. Denies nasal or sinus congestion or discharge. Denies throat, tongue, or mouth swelling or difficulty swallowing. CARDIOVASCULAR: Denies chest pain. Denies palpitations or racing or irregular heart beat. Denies ankle edema. RESPIRATORY: Denies cough, cold, or chest congestion. Denies shortness of breath, difficulty breathing, or wheezing. GASTROINTESTINAL: Admits to rectal bleeding GENITOURINARY: Denies difficulty urinating, painful urination, burning, frequency, blood in urine, or discharge. FEMALE GENITOURINARY: Denies vaginal bleeding, heavy or abnormal periods, irregular periods. Denies vaginal discharge or odor. MUSCULOSKELETAL: Denies back or neck pain or stiffness. Denies joint pain or swelling. SKIN: Denies rash, lesions or sores. HEMATOLOGIC : Denies easy bruising or bleeding. LYMPHATIC: Denies swollen, enlarged glands. NEUROLOGICAL: Denies confusion or altered mental status. Denies passing out or loss of consciousness. Denies dizziness or lightheadedness. Denies headache. Denies weakness or paralysis or loss of use of either side. Denies problems with gait or speech. Denies sensory loss, numbness, or tingling. Denies seizures. PSYCHIATRIC: Denies anxiety or stress. Denies depression, suicidal ideation, or homicidal ideation. ALL OTHER SYSTEMS REVIEWED AND NEGATIVE. Dictation was performed using [employer] voice recognition software PHYSICAL EXAMINATION: GENERAL: Well-appearing, well-nourished and in no acute distress. HEAD: Atraumatic, normocephalic. EYES: Pupils equal round and reactive to light, extraocular movements intact, conjunctiva are normal. ENT: Nares patent, oropharynx clear without exudates. Moist mucous membranes. NECK: Normal range of motion, supple without lymphadenopathy LUNGS: Breath sounds clear to auscultation bilaterally and equal. No wheezes rales or rhonchi. Patient on baseline 2 L nasal cannula HEART: Regular rate and rhythm without murmurs ABDOMEN: Soft, minimal tenderness in the bilateral lower quadrant suprapubic region. Female : Bright red appearing stool Musculoskeletal: Normal range of motion, no pitting or edema. No cyanosis. NEUROLOGICAL: Cranial nerves grossly intact. Normal speech, normal gait. Normal sensory, motor exams PSYCH: Normal mood, normal affect. SKIN: Warm, Dry, normal turgor, no rashes or lesions noted. Course - Re-evaluation Re-evalutation: 09/29/16 12:38 Lab work imaging is pending at this time, I believe patient's bleeding secondary to the use of Plavix as well.
[2016-09-29 14:48] LABS: ABSOLUTE EOSINOPHILS # (AUTO) 0.2 10^3/uL (0.0-0.6); ABSOLUTE LYMPHOCYTES (AUTO) 2.3 10^3/uL (0.5-4.7); ABSOLUTE MONOCYTES (AUTO) 0.6 10^3/uL (0.1-1.4); ABSOLUTE NEUT (AUTO) 5.6 10^3/uL (1.7-8.2); BASOPHILS % (AUTO) 0.5 % (0-2); EOSINOPHILS % (AUTO) 2.5 % (0-6); HEMATOCRIT 24.1 % (36.0-47.0); LYMPHOCYTES % (AUTO) 25.9 % (13-45); MEAN CORPUSCULAR HEMOGLOBIN 24.8 pg (27.0-33.4); MEAN CORPUSCULAR VOLUME 78 fl (80-97); MONOCYTES % (AUTO) 6.9 % (3-13); RED BLOOD COUNT 3.11 10^6/uL (3.72-5.28); RED CELL DISTRIBUTION WIDTH 19.9 % (11.5-14.0); SEGMENTED NEUTROPHILS % (AUTO) 64.2 % (42-78); WHITE BLOOD COUNT 8.7 10^3/uL (4.0-10.5)
[2016-09-29 14:50] LABS: HEMOGLOBIN 7.7 g/dL (12.0-15.5)
[2016-09-29 15:06] LABS: ALANINE AMINOTRANSFERASE 16 U/L (9-52); ALBUMIN 3.8 g/dL (3.5-5.0); ALKALINE PHOSPHATASE 131 U/L (38-126); ANION GAP 11 (5-19); ASPARTATE AMINO TRANSFERASE 16 U/L (14-36); BILIRUBIN,DIRECT 0.2 mg/dL (0.0-0.4); BILIRUBIN,TOTAL 0.3 mg/dL (0.2-1.3); BLOOD UREA NITROGEN 23 mg/dL (7-20); CALCIUM 9.4 mg/dL (8.4-10.2); CARBON DIOXIDE 28 mmol/L (22-30); CHLORIDE 102 mmol/L (98-107); CREATININE RESULT 1.22 mg/dL (0.52-1.25); GLUCOSE 105 mg/dL (75-110); POTASSIUM 4.6 mmol/L (3.6-5.0); SODIUM 141.2 mmol/L (137-145)
[2016-09-29] MEDS ORDERED: NORMAL SALINE 250 ML IV PRN ×4 (15:44→20:22)
[2016-09-29] MEDS ORDERED: PANTOPRAZOLE SODIUM 40 MG VIAL IV ONE (16:37)
[2016-09-29] MEDS ORDERED: PANTOPRAZOLE SODIUM 40 MG VIAL IV PRN (16:42)
[2016-09-29] MEDS ORDERED: LORAZEPAM INJ 2 MG/1 ML VIAL IV ONE (17:32)
[2016-09-29] MEDS ORDERED: ALBUTEROL SULFATE HFA (90 MCG/PUFF) 8 GM MDI (1 MDI/ER DISP) IH PRN (18:08)
[2016-09-29] MEDS ORDERED: (PENDING PHARMACY ID) (Oxycodone Hcl/Acetaminophen [Oxycodon-Acetaminophen 7.5-325] 1 TAB) PO PRN (18:14)
[2016-09-29] MEDS ORDERED: ZOLPIDEM TARTRATE 5 MG TABLET PO PRN (18:14)
[2016-09-29] MEDS ORDERED: METHOCARBAMOL 500 MG TABLET PO PRN (18:14)
[2016-09-29] MEDS ORDERED: INSULIN ASPART 3 UNIT SQ PRN (18:14)
[2016-09-29] MEDS ORDERED: NITROGLYCERIN 0.4 MG/TAB 25 TAB/BOTTLE SL PRN (18:14)
[2016-09-29] MEDS ORDERED: OXYCODONE HCL IR 5 MG TABLET PO PRN (18:37)
[2016-09-29] MEDS ORDERED: OXYCODONE-ACETAMINOPHEN 5-325 MG TABLET PO PRN (18:38)
[2016-09-29] MEDS ORDERED: MAGNESIUM OXIDE 400 MG TABLET PO ONE (19:15)
[2016-09-29] MEDS ORDERED: NITROGLYCERIN 5 MG (0.2 MG/HR) PATCH.TD24 TD ONE (19:15)
[2016-09-29] MEDS ORDERED: FUROSEMIDE INJ/PF 20 MG/2 ML SDV IV PRN (20:22)
[2016-09-29] MEDS ORDERED: LEVOTHYROXINE SODIUM 0.05 MG TABLET PO ONE (21:00)
[2016-09-29] MEDS ORDERED: FERROUS SULFATE 325 MG TABLET PO ONE (21:00)
[2016-09-29] MEDS ORDERED: FUROSEMIDE 40 MG TABLET PO ONE (21:00)
[2016-09-29] MEDS ORDERED: INSULIN GLARGINE,HUM.REC.ANLOG 300 UNIT/3 ML INSULN.PEN SUBCUT SCH (22:00)
[2016-09-29] MEDS ORDERED: TRAZODONE HCL 50 MG TABLET PO SCH (22:00)
[2016-09-29] MEDS ORDERED: DIAZEPAM 5 MG TABLET PO SCH (22:00)
[2016-09-29] MEDS ORDERED: QUETIAPINE FUMARATE 100 MG TABLET PO SCH (22:00)
[2016-09-29] MEDS ORDERED: AMITRIPTYLINE HCL 75 MG TABLET PO SCH (22:00)
[2016-09-29] MEDS ORDERED: SIMVASTATIN 10 MG TABLET PO SCH (22:00)
--- NOTE | 2016-09-29 22:36 | PDOC H&P ---
History of Present Illness Admission Date/PCP: 09/29/16 16:19 JASSON JENISEWhit Patient complains of: Rectal bleeding History of Present Illness: SANTOS NAVARRO is a 56 year old female known to my practice who has presented to the ED several time with same complaint of rectal bleeding. Patient presented today with associated compliant of generalized weakness. Patient do have history of colonoscopy confirm internal hemorrhoid. She reported associated ongoing lower abdominal pain. She denied nausea or vomiting. There is concern regarding habitual constipation and its contribution to her intermittent rectal bleeding from internal hemorrhoid. Her care has include Procrit injection with Dr. 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 Although she rescinded this practice in the past to allow for blood transfusion but her parents intervened and the procedure was cancelled after exposure of initial unit of PRBC. The ED physisican had extensive discussion with patient after my consultation with him regarding patient presentation and treatment plan. she again rescind her Jehovah witness blake and agreed to blood transfusion in view of her low hemoglobin and associated weakness. Patient reported been cold all the time. She denied any chest pain or difficulty with breathing. Patient is currently on Plavix due to her significant history of coronary artery disease s/ p CABG and angioplasty therapy. Past Medical History Cardiac Medical History: Reports: Congestive Heart Failure, Coronary Artery Disease, Myocardial Infarction, Hyperlipidema, Hypertension, Peripheral Vascular Disease Denies: Heart Murmur Pulmonary Medical History: Reports: Asthma, Bronchitis, Chronic Obstructive Pulmonary Disease (COPD) - Oxygen use at home, inhaler., Sleep Apnea Denies: Respiratory Failure, Tuberculosis Neurological Medical History: Reports: Migraine, Seizures Endocrine Medical History: Reports: Diabetes Mellitus Type 2, Hyperthyroidism, Hypothyroidism Renal/ Medical History: Reports: End Stage Renal Disease - Stage IV GI Medical History: Reports: Gastroesophageal Reflux Disease Musculoskeltal Medical History: Reports: Fibromyalgia Psychiatric Medical History: Reports: Bipolar Disorder, Depression, Post Traumatic Stress Disorder Hematology: Reports: Anemia Denies: Hemophilia, Sickle Cell Disease, Bleeding Tendencies Past Surgical History Past Surgical History: Reports: Cardiac Catheterization, Section - x2, Coronary Artery Bypass Graft, Coronary Stent - x2, Hysterectomy, Orthopedic Surgery - christine knee surgery, christine feet surgery, Tubal Ligation Denies: Amputation Social History Smoking Status: Former Smoker Frequency of Alcohol Use: None Hx Recreational Drug Use: No Drugs: None Hx Prescription Drug Abuse: No Family History Family History: None Parental Family History Reviewed: Yes Children Family History Reviewed: Yes Sibling(s) Family History Reviewed.: Yes Medication/Allergy Home Medications: Albuterol Sulfate [Proair HFA] 2 puff IH Q4 PRN 09/29/16 Amitriptyline HCl [Elavil 150 mg Tablet] 150 mg PO QHS 09/29/16 Aripiprazole [Aripiprazole Odt] 15 mg PO BID 09/29/16 Benztropine Mesylate [Cogentin 1 mg Tablet] 1 mg PO BID 09/29/16 Budesonide/Formoterol Fumarate [Symbicort Hfa 160-4.5 Mcg Inhaler 6 gm] 2 puff IH Q12 09/29/16 Bupropion HCl [Bupropion HCl Sr] 150 mg PO DAILY 09/29/16 Dexlansoprazole [Dexilant 60 mg Capsule] 60 mg PO DAILY 09/29/16 Diazepam [Valium 5 mg Tablet] 5 mg PO QHS 09/29/16 Duloxetine HCl [Cymbalta] 60 mg PO Q12 09/29/16 Ferrous Sulfate [Feosol 325 mg Tablet] 325 mg PO BID 09/29/16 Furosemide [Lasix] 40 mg PO BID 09/29/16 Gabapentin [Neurontin 300 mg Capsule] 300 mg PO Q8 09/29/16 Insulin Aspart [Novolog Flexpen] 0 unit SUBCUT .SLD SCALE 09/29/16 Insulin Glargine,Hum.rec.anlog [Lantus Solostar] 55 unit SQ DAILY 09/29/16 Insulin Glargine,Hum.rec.anlog [Lantus Solostar] 65 unit SQ QHS 09/29/16 Levothyroxine Sodium [Synthroid] 50 mcg PO DAILY 09/29/16 Liraglutide [Victoza 2-Armando] 1.8 mg SQ DAILY 09/29/16 Lubiprostone [Amitiza 24 Mcg Capsule] 24 mcg PO Q12 09/29/16 Magnesium Oxide [Magnesium] 400 mg PO BID 09/29/16 Methocarbamol [Robaxin 500 mg Tablet] 500 mg PO TIDP PRN 09/29/16 Nitroglycerin [Nitro-Dur 5 mg (0.2 mg/Hr) Transdermal Patch] 1 patch TD QAM Nitroglycerin [Nitrostat 0.4 mg (1/150 Gr) Tabs 25/Bottle] 1 tab SL Q5MP PRN Nystatin [Mycostatin Cream] 1 applic TP BID 09/29/16 Olmesartan Medoxomil [Benicar] 20 mg PO DAILY 09/29/16 Oxycodone HCl/Acetaminophen [Oxycodon-Acetaminophen 7.5-325] 1 tab PO Q4HP PRN 09/29/16 Quetiapine Fumarate [Seroquel] 400 mg PO DAILY 09/29/16 Saxagliptin Hydrochloride [Onglyza] 2.5 mg PO DAILY 09/29/16 Simvastatin [Zocor 20 mg Tablet] 20 mg PO QHS 09/29/16 Trazodone HCl [Desyrel] 600 mg PO QHS 09/29/16 Zolpidem Tartrate [Ambien] 20 mg PO HSP PRN 09/29/16 Allergies/Adverse Reactions: cephalexin monohydrate [From Keflex] Allergy (Unknown, Verified 08/29/16 11:19) codeine [Codeine] Allergy (Unknown, Verified 08/29/16 11:19) dicyclomine HCl [From Bentyl] Allergy (Unknown, Verified 08/29/16 11:19) hydrocodone bitartrate [From Vicodin] Allergy (Unknown, Verified 08/29/16 11:19) meloxicam [From Mobic] Allergy (Unknown, Verified 08/29/16 11:19) meperidine HCl [From Demerol (PF)] Allergy (Unknown, Verified 08/29/16 11:19) morphine [Morphine] Allergy (Unknown, Verified 08/29/16 11:19) naproxen sodium [From Naprelan CR Dosepak] Allergy (Unknown, Verified 08/29/16 11:19) nitrofurantoin [From Macrobid] Allergy (Unknown, Verified 08/29/16 11:19) pantoprazole sodium [From Protonix] Allergy (Unknown, Verified 08/29/16 11:19) Penicillins Allergy (Unknown, Verified 08/29/16 11:19) Sulfa (Sulfonamide Antibiotics) Allergy (Unknown, Verified 08/29/16 11:19) tramadol HCl [From Ultracet] Allergy (Unknown, Verified 08/29/16 11:19) lamotrigine [From Lamictal] Allergy (Verified 08/29/16 11:19) rash Review of Systems Constitutional: PRESENT: chills, weakness. ABSENT: as per HPI, anorexia, fatigue, fever(s), headache(s), night sweats, weight gain, weight loss, other Eyes: ABSENT: visual disturbances Ears: ABSENT: hearing changes Nose, Mouth, and Throat: ABSENT: as per HPI, headache(s), mouth pain, sore throat, vertigo, other Cardiovascular: PRESENT: edema. ABSENT: as per HPI, chest pain, dyspnea on exertion, orthropnea, palpitations, other Respiratory: ABSENT: cough, hemoptysis Gastrointestinal: PRESENT: abdominal pain - Lower quadrant regions, constipation , hematochezia. ABSENT: as per HPI, bloating, coffee ground emesis, diarrhea, dysphagia, heartburn, hematemesis, melena, nausea, vomiting, other Genitourinary: ABSENT: dysuria, hematuria Musculoskeletal: PRESENT: deformity - related to joint involvement with arthritis Integumentary: ABSENT: rash, wounds Neurological: PRESENT: weakness - probably related to her anemia. ABSENT: as per HPI, abnormal gait, abnormal movements, abnormal speech, confusion, convulsions, dizziness, focal weakness, frequent falls, lack of coordination, memory loss, numbness, paresthesias, restless legs, syncope, tingling, tremor(s) , vertigo, other Psychiatric: PRESENT: depression - related to her repeated ED visit for rectal bleeding and anemia. Hematologic/Lymphatic: ABSENT: easy bleeding, easy bruising, lymphadenopathy Allergic/Immunologic: ABSENT: as per HPI, seasonal rhinorrhea, other Physical Exam Vital Signs: Temp Pulse Resp BP Pulse Ox 98.7 F 89 23 H 120/58 L 100 09/29/16 18:27 09/29/16 18:27 09/29/16 18:27 09/29/16 18:27 09/29/16 18:27 Intake & Output 09/28/16 09/29/16 09/30/16 06:59 06:59 06:59 Weight 154.221 kg General appearance: PRESENT: no acute distress, cooperative, morbidly obese Head exam: PRESENT: atraumatic, normocephalic Eye exam: PRESENT: conjunctiva pink, EOMI, PERRLA. ABSENT: scleral icterus Ear exam: PRESENT: normal external ear exam Mouth exam: PRESENT: moist, tongue midline Teeth exam: PRESENT: poor dentation Throat exam: ABSENT: post pharyngeal erythema, tonsillar erythema, tonsillar exudate, tonsillogmegaly, other Neck exam: PRESENT: full ROM. ABSENT: carotid bruit, JVD, lymphadenopathy, thyromegaly Respiratory exam: PRESENT: clear to auscultation christine Cardiovascular exam: PRESENT: RRR. ABSENT: diastolic murmur, rubs, systolic murmur Pulses: PRESENT: normal dorsalis pedis pul, +2 pedal pulses bilateral Vascular exam: PRESENT: normal capillary refill GI/Abdominal exam: PRESENT: normal bowel sounds, soft. ABSENT: distended, guarding, mass, organolmegaly, rebound, tenderness Rectal exam: PRESENT: heme (-) stool, normal rectal tone Extremities exam: PRESENT: full ROM, pedal edema - minimal 1+ Musculoskeletal exam: PRESENT: deformity - related to joint involvement with arthritis Neurological exam: PRESENT: alert, awake, oriented to person, oriented to place , oriented to time, oriented to situation, CN II-XII grossly intact. ABSENT: motor sensory deficit Psychiatric exam: PRESENT: appropriate affect, normal mood. ABSENT: homicidal ideation, suicidal ideation Skin exam: PRESENT: dry, intact, warm. ABSENT: cyanosis, rash Results Laboratory Results: I reviewed her 09/28/16 and 09/29/16 laboratory results on [employer]. These form a significant part of my medical decision making. 09/29/16 16:54 Blood Type O POSITIVE Antibody Screen NEGATIVE Impressions: Abdomen/Pelvis CT 09/29/16 12:16 IMPRESSION: NO SIGNIFICANT OR ACUTE FINDING IN THE ABDOMEN OR PELVIS ON CT SCAN WITH IV CONTRAST. 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 Assessment & Plan - Diagnosis (1) Internal hemorrhoid, bleeding Is this a current diagnosis for this admission?: YesPlan: See admitting physician orders. (2) Anemia associated with acute blood loss Is this a current diagnosis for this admission?: YesPlan: See admitting physician orders. (3) Rectal bleeding Is this a current diagnosis for this admission?: YesPlan: Related to her internal hemorrhoid. See admitting physician orders. (4) Asthma Qualifiers: Asthma complication type: uncomplicated Is this a current diagnosis for this admission?: YesPlan: See admitting physician orders. (5) Bipolar 1 disorder, depressed Is this a current diagnosis for this admission?: YesPlan: See admitting physician orders. (6) HTN (hypertension) Qualifiers: Hypertension type: essential hypertension Qualified Code(s): I10 - Essential (primary) hypertension Is this a current diagnosis for this admission?: YesPlan: See admitting physician orders. 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 (8) PTSD (post-traumatic stress disorder) Is this a current diagnosis for this admission?: YesPlan: See admitting physician orders. - Time Time Spent: 50 to 70 Minutes Medications reviewed and adjusted accordingly: Yes Anticipated discharge: Home Within: Other - Inpatient Certification Based on my medical assessment, after consideration of the patient's comorbidities, presenting symptoms, or acuity I expect that the services needed warrant INPATIENT care.: Yes I certify that my determination is in accordance with my understanding of Medicare's requirements for reasonable and necessary INPATIENT services [42 CFR 412.3e].: Yes Medical Necessity: Need Close Monitoring Due to Risk of Patient Decompensation, Need For Continuous Telemetry Monitoring, Risk of Complication if Not Cared For in Hospital Post Hospital Care: D/C Parts Counter Representative Documentation - Plan Summary Plan Summary: See admitting physician orders.
[2016-09-30] MEDS: GABAPENTIN 300 MG CAPSULE PO SCH ×3 (00:39→13:38)
[2016-09-30] MEDS: ARIPIPRAZOLE 5 MG TABLET PO SCH ×2 (00:39→11:04)
[2016-09-30] MEDS: DULOXETINE HCL 30 MG CAPSULE.DR PO SCH ×2 (00:40→11:04)
[2016-09-30] MEDS: BUPROPION HCL 75 MG TABLET PO SCH ×2 (00:41→11:04)
[2016-09-30] MEDS: MAGNESIUM OXIDE 400 MG TABLET PO SCH ×2 (00:41→10:57)
[2016-09-30] MEDS: BUDESONIDE/FORMOTEROL 160-4.5 MCG 60 PUFF/6 GM MDI IH SCH ×2 (00:41→10:58)
[2016-09-30] MEDS: LUBIPROSTONE 24 MCG CAPSULE PO SCH ×2 (00:42→10:56)
[2016-09-30] MEDS: NYSTATIN CREAM 15 GM TP SCH ×2 (00:44→10:58)
[2016-09-30] MEDS: BENZTROPINE MESYLATE 1 MG TABLET PO SCH ×2 (00:44→11:04)
[2016-09-30] MEDS ORDERED: NITROGLYCERIN 5 MG (0.2 MG/HR) PATCH.TD24 TD SCH (08:00)
[2016-09-30] MEDS ORDERED: SAXAGLIPTIN HYDROCHLORIDE 2.5 MG PO SCH (10:00)
[2016-09-30] MEDS ORDERED: SITAGLIPTIN PHOSPHATE 50 MG TABLET PO SCH (10:00)
[2016-09-30] MEDS ORDERED: LOSARTAN POTASSIUM 50 MG TABLET PO SCH (10:00)
[2016-09-30] MEDS ORDERED: INSULIN GLARGINE,HUM.REC.ANLOG 300 UNIT/3 ML INSULN.PEN SUBCUT SCH (10:00)
[2016-09-30] MEDS ORDERED: FERROUS SULFATE 325 MG TABLET PO SCH (10:00)
[2016-09-30] MEDS ORDERED: FUROSEMIDE 40 MG TABLET PO SCH (10:00)
[2016-09-30] MEDS ORDERED: (PENDING PHARMACY ID) (Liraglutide [Victoza 2-Pak] 1.8 MG) SQ SCH (10:00)
[2016-09-30] MEDS ORDERED: LEVOTHYROXINE SODIUM 0.05 MG TABLET PO SCH (10:00)
[2016-09-30] MEDS ORDERED: LANSOPRAZOLE 30 MG TAB.RAP.DR PO SCH (10:00)
[2016-09-30] MEDS ORDERED: (PENDING PHARMACY ID) (Olmesartan Medoxomil [Benicar] 20 MG) PO SCH (10:00)
--- NOTE | 2016-09-30 15:38 | PDOC DISCHARGE SUMMARY ---
General - Admit/Disc Date/PCP Admission Date/Primary Care Provider: 09/29/16 20:19 JASSON VINI Discharge Date: 09/30/16 - Discharge Diagnosis (1) Internal hemorrhoid, bleeding Is this a current diagnosis for this admission?: Yes (2) Anemia associated with acute blood loss Is this a current diagnosis for this admission?: Yes (3) Rectal bleeding Is this a current diagnosis for this admission?: Yes (4) Asthma Is this a current diagnosis for this admission?: Yes (5) Bipolar 1 disorder, depressed Is this a current diagnosis for this admission?: Yes (6) HTN (hypertension) Is this a current diagnosis for this admission?: Yes (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 Is this a current diagnosis for this admission?: Yes (8) PTSD (post-traumatic stress disorder) Is this a current diagnosis for this admission?: Yes - Additional Information Discharge Diet: Cardiac, Diabetic Discharge Activity: Activity As Tolerated Home Medications: Albuterol Sulfate [Proair HFA] 2 puff IH Q4 PRN 09/29/16 Amitriptyline HCl [Elavil 150 mg Tablet] 150 mg PO QHS 09/29/16 Aripiprazole [Aripiprazole Odt] 15 mg PO BID 09/29/16 Benztropine Mesylate [Cogentin 1 mg Tablet] 1 mg PO BID 09/29/16 Budesonide/Formoterol Fumarate [Symbicort HFA 160-4.5 mcg Inhaler 6 gm] 2 puff IH Q12 09/29/16 Bupropion HCl [Bupropion HCl Sr] 150 mg PO DAILY 09/29/16 Dexlansoprazole [Dexilant 60 mg Capsule] 60 mg PO DAILY 09/29/16 Diazepam [Valium 5 mg Tablet] 5 mg PO QHS 09/29/16 Duloxetine HCl [Cymbalta] 60 mg PO Q12 09/29/16 Ferrous Sulfate [Feosol 325 mg Tablet] 325 mg PO BID 09/29/16 Furosemide [Lasix] 40 mg PO BID 09/29/16 Gabapentin [Neurontin 300 mg Capsule] 300 mg PO Q8 09/29/16 Insulin Aspart [Novolog Flexpen] 0 unit SUBCUT .SLD SCALE 09/29/16 Insulin Glargine,Hum.rec.anlog [Lantus Solostar] 55 unit SQ DAILY 09/29/16 Insulin Glargine,Hum.rec.anlog [Lantus Solostar] 65 unit SQ QHS 09/29/16 Levothyroxine Sodium [Synthroid] 50 mcg PO DAILY 09/29/16 Liraglutide [Victoza 2-Armando] 1.8 mg SQ DAILY 09/29/16 Lubiprostone [Amitiza 24 Mcg Capsule] 24 mcg PO Q12 09/29/16 Magnesium Oxide [Magnesium] 400 mg PO BID 09/29/16 Methocarbamol [Robaxin 500 mg Tablet] 500 mg PO TIDP PRN 09/29/16 Nitroglycerin [Nitro-Dur 5 mg (0.2 mg/Hr) Transdermal Patch] 1 patch TD QAM Nitroglycerin [Nitrostat 0.4 mg (1/150 Gr) Tabs 25/Bottle] 1 tab SL Q5MP PRN Nystatin [Mycostatin Cream 15 gm] 1 applic TP BID 09/29/16 Olmesartan Medoxomil [Benicar] 20 mg PO DAILY 09/29/16 Oxycodone HCl/Acetaminophen [Oxycodon-Acetaminophen 7.5-325] 1 tab PO Q4HP PRN 09/29/16 Quetiapine Fumarate [Seroquel] 400 mg PO DAILY 09/29/16 Saxagliptin Hydrochloride [Onglyza] 2.5 mg PO DAILY 09/29/16 Simvastatin [Zocor 20 mg Tablet] 20 mg PO QHS 09/29/16 Trazodone HCl [Desyrel] 600 mg PO QHS 09/29/16 Zolpidem Tartrate [Ambien] 20 mg PO HSP PRN 09/29/16 History of Present Illness History of Present Illness: SANTOS NAVARRO is a 56 year old female known to my practice who has presented to the ED several time with same complaint of rectal bleeding. Patient presented today with associated compliant of generalized weakness. Patient do have history of colonoscopy confirm internal hemorrhoid. She reported associated ongoing lower abdominal pain. She denied nausea or vomiting. There is concern regarding habitual constipation and its contribution to her intermittent rectal bleeding from internal hemorrhoid. 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 Although she rescinded this practice in the past to allow for blood transfusion but her parents intervened and the procedure was cancelled after exposure of initial unit of PRBC. The ED physisican had extensive discussion with patient after my consultation with him regarding patient presentation and treatment plan. she again rescind her Jehovah witness blake and agreed to blood transfusion in view of her low hemoglobin and associated weakness. Patient reported been cold all the time. She denied any chest pain or difficulty with breathing. Patient is currently on Plavix due to her significant history of coronary artery disease s/ p CABG and angioplasty therapy. Hospital Course Hospital Course: Patient refused PRBC transfusion after initial agreement with moving forward with the procedure due to malfunction of her Port-a-cath. She will be discharge home with intent to follow up with Dr Lopez for continue Procrit and iron therapy as needed for her anemia of chronic blood loss. I will arrange for outpatient capsule endoscopy with Dr Rodriguez for further endoscopic evaluation f her blood loss. In view of her coronary artery stent angioplasty she need continue use of Plavix. If her endoscopy is negative I will follow up with referral to tertiary center surgeon for her internal hemorrhoid possible surgical management. Emphasized increase fiber in her diet and avoidance of constipation. She will follow up in office as instructed upon discharge. Physical Exam Vital Signs: Temp Pulse Resp BP Pulse Ox 97.2 F 87 18 126/72 H 99 09/30/16 11:59 09/30/16 11:59 09/30/16 11:59 09/30/16 11:59 09/30/16 11:59 Intake & Output 09/29/16 09/30/16 10/01/16 06:59 06:59 06:59 Intake Total 486 Balance 486 Weight 158.6 kg General appearance: PRESENT: no acute distress, cooperative, morbidly obese Head exam: PRESENT: atraumatic, normocephalic Neck exam: PRESENT: full ROM. ABSENT: carotid bruit, JVD, lymphadenopathy, thyromegaly Respiratory exam: PRESENT: clear to auscultation christine Cardiovascular exam: PRESENT: RRR. ABSENT: diastolic murmur, rubs, systolic murmur GI/Abdominal exam: PRESENT: normal bowel sounds, soft. ABSENT: distended, guarding, mass, organolmegaly, rebound, tenderness Rectal exam: PRESENT: deferred Extremities exam: PRESENT: pedal edema - trace bilaterally Musculoskeletal exam: PRESENT: deformity - related to joint arthritis involvement Neurological exam: PRESENT: alert, awake, oriented to person, oriented to place , oriented to time, oriented to situation, CN II-XII grossly intact. ABSENT: motor sensory deficit Psychiatric exam: PRESENT: appropriate affect, normal mood. ABSENT: homicidal ideation, suicidal ideation Skin exam: PRESENT: dry, intact, warm. ABSENT: cyanosis, rash Results Laboratory Results: 09/30/16 12:15 Blood Type O POSITIVE Antibody Screen NEGATIVE Impressions: Abdomen/Pelvis CT 09/29/16 12:16 IMPRESSION: NO SIGNIFICANT OR ACUTE FINDING IN THE ABDOMEN OR PELVIS ON CT SCAN WITH IV CONTRAST. 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 Qualifiers PATEINT BEING DISCHARGED WITH ANY OF THE FOLLOWING DIAGNOSIS?: No Plan Discharge Plan: She will be discharged home today with follow up appointment as instructed upon discharge. Time Spent: Less than 30 Minutes
[2016-09-30 15:44] VITALS: BP 102/50
== END 2016-09-30 16:34 | disposition home or self-care (01) | DRG 393 ==
LOC: ER 10:48 → UNDOADMIN 16:19 → EH 16:19 → 4S 19:15 → EH 19:15 → 4S 20:19
PROVIDERS: ADMIT Internal Medicine Geriatric Medicine; ATTEND Internal Medicine Geriatric Medicine
PROC: 30233N1 Transfusion of Nonautologous Red Blood Cells into Peripheral Vein, Percutaneous Approach (ICD-10-PCS; principal; 2016-09-30)
DX: K64.8 Other hemorrhoids (principal); N18.6 End stage renal disease; D62 Acute posthemorrhagic anemia; K62.5 Hemorrhage of anus and rectum; I13.2 Hypertensive heart and chronic kidney disease with heart failure and with stage 5 chronic kidney disease, or end stage renal disease; I50.9 Heart failure, unspecified; I11.0 Hypertensive heart disease with heart failure; I25.10 Atherosclerotic heart disease of native coronary artery without angina pectoris; E78.5 Hyperlipidemia, unspecified; E11.22 Type 2 diabetes mellitus with diabetic chronic kidney disease; F31.9 Bipolar disorder, unspecified; F43.10 Post-traumatic stress disorder, unspecified; I25.2 Old myocardial infarction; Z79.4 Long term (current) use of insulin; Z79.51 Long term (current) use of inhaled steroids; Z79.899 Other long term (current) drug therapy; Z79.01 Long term (current) use of anticoagulants; Z99.81 Dependence on supplemental oxygen; Z87.891 Personal history of nicotine dependence; Z88.5 Allergy status to narcotic agent; Z88.0 Allergy status to penicillin; Z88.2 Allergy status to sulfonamides; Z88.8 Allergy status to other drugs, medicaments and biological substances
CPT/HCPCS: 36415; 36430; 36591; 74177; 80053; 82272; 82962; 85025; 86850; 86900; 86901; 86920; 99291; J1815; J2060; J3490; P9016

== ENCOUNTER 2016-10-02 12:29 | Inpatient (IN) | payer MEDICARE, MEDICAID ==
--- NOTE | 2016-10-02 12:51 | ER Document Report ---
ED Medical Screen (RME) - General Chief Complaint: Nausea/Vomiting/Diarrhea Stated Complaint: RECTAL BLEEDING TRAVEL OUTSIDE OF THE [place] IN LAST 30 DAYS: No - HPI Patient complains to provider of: rectal bleeding Notes: 10/02/16 12:50 Chronic rectal bleeding. Patient recently seen and given blood transfusion coming back for same complaint - Related Data Allergies/Adverse Reactions: cephalexin monohydrate [From Keflex] Allergy (Unknown, Verified 10/02/16 12:30) codeine [Codeine] Allergy (Unknown, Verified 10/02/16 12:30) dicyclomine HCl [From Bentyl] Allergy (Unknown, Verified 10/02/16 12:30) hydrocodone bitartrate [From Vicodin] Allergy (Unknown, Verified 10/02/16 12:30) meloxicam [From Mobic] Allergy (Unknown, Verified 10/02/16 12:30) meperidine HCl [From Demerol (PF)] Allergy (Unknown, Verified 10/02/16 12:30) morphine [Morphine] Allergy (Unknown, Verified 10/02/16 12:30) naproxen sodium [From Naprelan CR Dosepak] Allergy (Unknown, Verified 10/02/16 12:30) nitrofurantoin [From Macrobid] Allergy (Unknown, Verified 10/02/16 12:30) pantoprazole sodium [From Protonix] Allergy (Unknown, Verified 10/02/16 12:30) Penicillins Allergy (Unknown, Verified 10/02/16 12:30) Sulfa (Sulfonamide Antibiotics) Allergy (Unknown, Verified 10/02/16 12:30) tramadol HCl [From Ultracet] Allergy (Unknown, Verified 10/02/16 12:30) lamotrigine [From Lamictal] Allergy (Verified 10/02/16 12:30) rash Past Medical History - Past Medical History Cardiac Medical History: Reports: Hx Congestive Heart Failure, Hx Coronary Artery Disease, Hx Heart Attack, Hx Hypercholesterolemia, Hx Hypertension, Hx Peripheral Vascular Disease Denies: Hx Heart Murmur Pulmonary Medical History: Reports: Hx Asthma, Hx Bronchitis, Hx COPD - Oxygen use at home, inhaler., Hx Sleep Apnea Denies: Hx Respiratory Failure, Hx Tuberculosis Neurological Medical History: Reports: Hx Migraine, Hx Seizures Endocrine Medical History: Reports: Hx Diabetes Mellitus Type 2, Hx Hyperthyroidism, Hx Hypothyroidism Renal/ Medical History: Reports: Hx End Stage Renal Disease - Stage IV, Hx Renal Insufficiency. Denies: Hx Peritoneal Dialysis GI Medical History: Reports: Hx Gastroesophageal Reflux Disease Musculoskeltal Medical History: Reports Hx Fibromyalgia, Reports Hx Muscle Weakness Psychiatric Medical History: Reports: Hx Bipolar Disorder, Hx Depression, Hx Post Traumatic Stress Disorder, Hx Schizophrenia Past Surgical History: Reports: Hx Cardiac Catheterization, Hx Section - x2, Hx Coronary Artery Bypass Graft, Hx Coronary Stent - x2, Hx Hysterectomy, Hx Orthopedic Surgery - christine knee surgery, christine feet surgery, Hx Tubal Ligation - Immunizations Hx Diphtheria, Pertussis, Tetanus Vaccination: Yes Review of Systems - Review of Systems Gastrointestinal: Rectal bleeding Physical Exam - Vital signs Vitals: Temp Pulse Resp BP Pulse Ox 97.5 F 99 21 H 139/82 H 100 10/02/16 12:33 10/02/16 12:33 10/02/16 12:33 10/02/16 12:33 10/02/16 12:33 - Cardiovascular Rhythm: Regular Heart sounds: Normal auscultation Course - Re-evaluation Re-evalutation: 10/02/16 12:51 Vital signs stable at this time - Vital Signs Vital signs: Temp Pulse Resp BP Pulse Ox 97.5 F 99 21 H 139/82 H 100 10/02/16 12:33 10/02/16 12:33 10/02/16 12:33 10/02/16 12:33 10/02/16 12:33
[2016-10-02] MEDS ORDERED: ONDANSETRON 4 MG TAB.RAPDIS PO ONE (13:19)
[2016-10-02 13:41] LABS: ABSOLUTE EOSINOPHILS # (AUTO) 0.1 10^3/uL (0.0-0.6); ABSOLUTE LYMPHOCYTES (AUTO) 1.6 10^3/uL (0.5-4.7); ABSOLUTE MONOCYTES (AUTO) 0.4 10^3/uL (0.1-1.4); ABSOLUTE NEUT (AUTO) 8.8 10^3/uL (1.7-8.2); BASOPHILS % (AUTO) 0.3 % (0-2); EOSINOPHILS % (AUTO) 0.8 % (0-6); HEMATOCRIT 29.9 % (36.0-47.0); HEMOGLOBIN 9.6 g/dL (12.0-15.5); HGB HCT DIFFERENCE -1.1; LYMPHOCYTES % (AUTO) 15.1 % (13-45); MEAN CORPUSCULAR HEMOGLOBIN 24.6 pg (27.0-33.4); MEAN CORPUSCULAR HGB CONC 32.1 g/dL (32.0-36.0); MEAN CORPUSCULAR VOLUME 77 fl (80-97); MONOCYTES % (AUTO) 3.3 % (3-13); RED CELL DISTRIBUTION WIDTH 20.9 % (11.5-14.0); SEGMENTED NEUTROPHILS % (AUTO) 80.5 % (42-78); WHITE BLOOD COUNT 10.9 10^3/uL (4.0-10.5)
[2016-10-02 13:47] LABS: PROTHROMBIN TIME 13.4 SEC (11.4-15.4)
[2016-10-02 13:48] LABS: PARTIAL THROMBOPLASTIN TIME 39.1 SEC (23.5-35.8)
[2016-10-02 14:05] LABS: SODIUM 143.5 mmol/L (137-145)
[2016-10-02 14:06] LABS: ANION GAP 19 (5-19); BLOOD UREA NITROGEN 22 mg/dL (7-20); CALCIUM 11.1 mg/dL (8.4-10.2); CARBON DIOXIDE 28 mmol/L (22-30); CHLORIDE 97 mmol/L (98-107); CREATININE RESULT 1.17 mg/dL (0.52-1.25); GLUCOSE 159 mg/dL (75-110); POTASSIUM 4.8 mmol/L (3.6-5.0)
[2016-10-02] MEDS ORDERED: NORMAL SALINE 1000 ML 500 ML IV ONE (15:09)
--- NOTE | 2016-10-02 15:31 | ER Document Report ---
ED GI/ - General Mode of Arrival: Ambulatory Information source: Patient TRAVEL OUTSIDE OF THE [place] IN LAST 30 DAYS: No - HPI Patient complains to provider of: Abdominal pain <HARMAN THOMAS - Last Filed: 10/02/16 18:04> <BIANCA AUGUST - Last Filed: 10/02/16 19:13> - General Chief Complaint: Nausea/Vomiting/Diarrhea Stated Complaint: RECTAL BLEEDING Notes: 56 year old female with history of GERD and GI bleeds presents to the ED complaining of diffuse abdominal pain, diarrhea, and vomiting that started yesterday. Patient states that Dr. Sharp sent the patient into the ED. Patient reports to having bright red hemeatemesis last night and dark emesis earlier today. Patient also had an episode of red diarrhea earlier today. Patient states that these symptoms started after getting a blood transfusion yesterday. 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 Garcia. Patient is currently on Plavix. (HARMAN THOMAS) - Related Data Allergies/Adverse Reactions: cephalexin monohydrate [From Keflex] Allergy (Unknown, Verified 10/02/16 12:30) codeine [Codeine] Allergy (Unknown, Verified 10/02/16 12:30) dicyclomine HCl [From Bentyl] Allergy (Unknown, Verified 10/02/16 12:30) hydrocodone bitartrate [From Vicodin] Allergy (Unknown, Verified 10/02/16 12:30) meloxicam [From Mobic] Allergy (Unknown, Verified 10/02/16 12:30) meperidine HCl [From Demerol (PF)] Allergy (Unknown, Verified 10/02/16 12:30) morphine [Morphine] Allergy (Unknown, Verified 10/02/16 12:30) naproxen sodium [From Naprelan CR Dosepak] Allergy (Unknown, Verified 10/02/16 12:30) nitrofurantoin [From Macrobid] Allergy (Unknown, Verified 10/02/16 12:30) pantoprazole sodium [From Protonix] Allergy (Unknown, Verified 10/02/16 12:30) Penicillins Allergy (Unknown, Verified 10/02/16 12:30) Sulfa (Sulfonamide Antibiotics) Allergy (Unknown, Verified 10/02/16 12:30) tramadol HCl [From Ultracet] Allergy (Unknown, Verified 10/02/16 12:30) lamotrigine [From Lamictal] Allergy (Verified 10/02/16 12:30) rash Past Medical History - General Information source: Patient - Social History Smoking Status: Never Smoker Chew tobacco use (# tins/day): No Frequency of alcohol use: None Drug Abuse: None Family History: None Patient has suicidal ideation: No Patient has homicidal ideation: No - Past Medical History Cardiac Medical History: Reports: Hx Congestive Heart Failure, Hx Coronary Artery Disease, Hx Heart Attack, Hx Hypercholesterolemia, Hx Hypertension, Hx Peripheral Vascular Disease Pulmonary Medical History: Reports: Hx Asthma, Hx Bronchitis, Hx COPD - Oxygen use at home, inhaler., Hx Sleep Apnea Neurological Medical History: Reports: Hx Migraine, Hx Seizures Endocrine Medical History: Reports: Hx Diabetes Mellitus Type 2, Hx Hyperthyroidism, Hx Hypothyroidism Renal/ Medical History: Reports: Hx End Stage Renal Disease - Stage IV, Hx Renal Insufficiency GI Medical History: Reports: Hx Gastroesophageal Reflux Disease Musculoskeltal Medical History: Reports Hx Fibromyalgia, Reports Hx Muscle Weakness Psychiatric Medical History: Reports: Hx Bipolar Disorder, Hx Depression, Hx Post Traumatic Stress Disorder, Hx Schizophrenia Past Surgical History: Reports: Hx Cardiac Catheterization, Hx Section - x2, Hx Coronary Artery Bypass Graft, Hx Coronary Stent - x2, Hx Hysterectomy, Hx Orthopedic Surgery - christine knee surgery, christine feet surgery, Hx Tubal Ligation - Immunizations Hx Diphtheria, Pertussis, Tetanus Vaccination: Yes Hx Pneumococcal Vaccination: 04/02/13 <HARMAN THOMAS - Last Filed: 10/02/16 18:04> Review of Systems - Review of Systems Constitutional: No symptoms reported EENT: No symptoms reported Cardiovascular: No symptoms reported Respiratory: No symptoms reported Gastrointestinal: See HPI, Abdominal pain - generalized, Diarrhea, Vomiting, Blood in vomit, Rectal bleeding Genitourinary: No symptoms reported Female Genitourinary: No symptoms reported Musculoskeletal: No symptoms reported Skin: No symptoms reported Hematologic/Lymphatic: No symptoms reported Neurological/Psychological: No symptoms reported -: Yes All other systems reviewed and negative <HARMAN THOMAS - Last Filed: 10/02/16 18:04> Physical Exam - General General appearance: Alert In distress: None - HEENT Head: Normocephalic, Atraumatic Eyes: Normal Extraocular movements intact: Yes Pupils: PERRL Mucous membranes: Dry - Respiratory Respiratory status: No respiratory distress Breath sounds: Normal - Cardiovascular Rhythm: Regular Heart sounds: Normal auscultation - Abdominal Inspection: Normal Distension: No distension Tenderness: Tender - mild diffuse tenderness to palpation - Back Back: Normal - Extremities General upper extremity: Normal inspection, Normal ROM General lower extremity: Normal inspection, Normal ROM - Neurological Neuro grossly intact: Yes Cognition: Normal Orientation: AAOx4 [place] Coma Scale Eye Opening: Spontaneous [place] Coma Scale Verbal: Oriented Mary Coma Scale Motor: Obeys Commands Mary Coma Scale Total: 15 Speech: Normal - Psychological Associated symptoms: Normal affect, Normal mood - Skin Skin Temperature: Warm Skin Moisture: Dry Skin Color: Normal <HARMAN THOMAS - Last Filed: 10/02/16 18:04> Course - Laboratory Result Diagrams: 10/02/16 13:06 10/02/16 13:06 - Consults Dr. Alvarez Time consulted: 17:38 <HARMAN THOMAS - Last Filed: 10/02/16 18:04> - Laboratory Result Diagrams: 10/02/16 13:06 10/02/16 13:06 <BIANCA AUGUST - Last Filed: 10/02/16 19:13> - Re-evaluation Re-evalutation: 10/02/16 Patient presents with vomiting and diarrhea and concern for possible need for transfusion. Patient hemoglobin is improved since her recent visit. He isn't does not require transfusion at this time. However, the patient is somewhat nauseated. Patient is still having with stool. Patient's states that she is uncomfortable going home. Patient has been discussed with Dr. Alvarez and the patient will be kept in the hospital for intractable nausea and vomiting. Patient agrees with plan. No need for emergent dialysis at this time. (BIANCA AUGUST) - Vital Signs Vital signs: Temp Pulse Resp BP Pulse Ox 97.4 F 78 20 116/78 98 10/02/16 18:14 10/02/16 18:14 10/02/16 18:14 10/02/16 18:14 10/02/16 18:14 - Laboratory Laboratory results interpreted by me: 10/02/16 10/02/16 10/02/16 13:06 13:06 13:06 WBC 10.9 H Hgb 9.6 L Hct 29.9 L MCV 77 L MCH 24.6 L RDW 20.9 H Seg Neutrophils % 80.5 H Absolute Neutrophils 8.8 H APTT 39.1 H Chloride 97 L BUN 22 H Est GFR ( Amer) 58 L Est GFR (Non-Af Amer) 48 L Glucose 159 H Calcium 11.1 H - Consults Dr. Alvarez Reason for consultation: 10/02/16 17:38 Patient was discussed with Dr. Alvarez and he agrees to admit the patient. (HARMAN THOMAS) Critical Care Note - Critical Care Note Total time excluding time spent on procedures (mins): 45 - evaluation and management of vomiting, multiple re-evaluations, Hemoccult-positive gastric. Coordination of admission, counseling of patient <BIANCA AUGUST - Last Filed: 10/02/16 19:13> Discharge <HARMAN THOMAS - Last Filed: 10/02/16 18:04> - Discharge Admitting Provider: Kim Unit Admitted: Telemetry <BIANCA AUGUST - Last Filed: 10/02/16 19:13> - Discharge Clinical Impression: Vomiting Qualifiers: Vomiting type: unspecified Vomiting Intractability: intractable Nausea presence : with nausea Qualified Code(s): R11.2 - Nausea with vomiting, unspecified Chronic kidney disease Qualifiers: Chronic kidney disease stage: unspecified stage Qualified Code(s): N18.9 - Chronic kidney disease, unspecified Condition: Stable Disposition: ADMITTED INPATIENT Scribe Attestation: 10/02/16 19:12 I personally performed the services described in the documentation, reviewed and edited the documentation which was dictated to the scribe in my presence, and it accurately records my words and actions. (BIANCA AUGUST) Scribe Documentation - Scribe Written by Olga:: Olga Sykes, 10/02/2016 1548 acting as scribe for :: Rolan <HARMAN THOMAS - Last Filed: 10/02/16 18:04>
[2016-10-02] MEDS ORDERED: METOCLOPRAMIDE HCL INJ/PF 10 MG/2 ML SDV IV ONE (15:37)
[2016-10-02] MEDS ORDERED: SUCRALFATE 1 GM TABLET PO ONE (16:01)
[2016-10-02] MEDS ORDERED: LANSOPRAZOLE 15 MG TAB.RAP.DR PO ONE (17:39)
[2016-10-02] MEDS ORDERED: ONDANSETRON HCL INJ/PF 4 MG/2 ML SDV IV PRN (21:42)
[2016-10-02] MEDS ORDERED: NITROGLYCERIN 0.4 MG/TAB 25 TAB/BOTTLE SL PRN (21:46)
[2016-10-02] MEDS ORDERED: ZOLPIDEM TARTRATE 5 MG TABLET PO PRN (21:46)
[2016-10-02] MEDS ORDERED: METHOCARBAMOL 500 MG TABLET PO PRN (21:46)
[2016-10-02] MEDS ORDERED: ACETAMINOPHEN 325 MG TABLET PO PRN ×2 (21:46→22:34)
[2016-10-02] MEDS ORDERED: AMITRIPTYLINE HCL 75 MG TABLET PO SCH (22:00)
[2016-10-02] MEDS ORDERED: INSULIN GLARGINE,HUM.REC.ANLOG 300 UNIT/3 ML INSULN.PEN SUBCUT SCH (22:00)
[2016-10-02] MEDS ORDERED: DIAZEPAM 5 MG TABLET PO SCH (22:00)
[2016-10-02] MEDS ORDERED: OXYCODONE HCL IR 5 MG TABLET PO PRN ×2 (22:31→22:34)
[2016-10-02] MEDS ORDERED: AMITRIPTYLINE HCL 75 MG TABLET PO ONE (23:15)
[2016-10-02] MEDS ORDERED: AMITRIPTYLINE HCL 75 MG TABLET ONE (23:25)
[2016-10-02] MEDS: DULOXETINE HCL 30 MG CAPSULE.DR PO SCH (23:35)
[2016-10-02] MEDS: GABAPENTIN 300 MG CAPSULE PO SCH (23:35)
[2016-10-02] MEDS: TRAZODONE HCL 50 MG TABLET PO SCH (23:36)
[2016-10-02] MEDS: SIMVASTATIN 10 MG TABLET PO SCH (23:36)
[2016-10-02] MEDS: BUDESONIDE/FORMOTEROL 160-4.5 MCG 60 PUFF/6 GM MDI IH SCH (23:39)
[2016-10-02] MEDS: ALBUTEROL SULFATE HFA (90 MCG/PUFF) 8 GM MDI (1 MDI/ER DISP) IH PRN (23:39)
[2016-10-03] MEDS: LUBIPROSTONE 24 MCG CAPSULE PO SCH ×3 (00:01→23:00)
[2016-10-03] MEDS ORDERED: DEXTROSE 40% GEL 15 GM TUBE PO PRN (00:37)
[2016-10-03] MEDS ORDERED: DEXTROSE 50%-WATER SYRINGE 12.5 GM/25 ML DOSE IV PRN (00:37)
[2016-10-03] MEDS ORDERED: GLUCAGON,HUMAN RECOMB 1 MG INJ IM PRN (00:37)
[2016-10-03] MEDS ORDERED: DEXTROSE 50%-WATER SYRINGE 25 GM/50 ML DOSE IV PRN (00:37)
[2016-10-03] MEDS ORDERED: DEXTROSE 40% GEL 15 GM TUBE X 2 PO PRN (00:37)
[2016-10-03] MEDS: ALBUTEROL SULFATE HFA (90 MCG/PUFF) 8 GM MDI (1 MDI/ER DISP) IH PRN ×2 (03:17→05:33)
[2016-10-03] MEDS: GABAPENTIN 300 MG CAPSULE PO SCH ×3 (05:50→22:59)
[2016-10-03] MEDS ORDERED: ALBUTEROL SULFATE HFA (90 MCG/PUFF) 200 PUFF/8.5 GM MDI IH PRN (08:10)
[2016-10-03] MEDS: NITROGLYCERIN 5 MG (0.2 MG/HR) PATCH.TD24 TD SCH (08:52)
[2016-10-03] MEDS ORDERED: INSULIN GLARGINE,HUM.REC.ANLOG 300 UNIT/3 ML INSULN.PEN SUBCUT SCH (10:00)
[2016-10-03] MEDS ORDERED: (PENDING PHARMACY ID) (Liraglutide [Victoza 2-Pak] 1.8 MG) SQ SCH (10:00)
[2016-10-03] MEDS: BENZTROPINE MESYLATE 1 MG TABLET PO SCH ×2 (10:05→17:19)
[2016-10-03] MEDS: DULOXETINE HCL 30 MG CAPSULE.DR PO SCH ×2 (10:05→22:58)
[2016-10-03] MEDS: LOSARTAN POTASSIUM 50 MG TABLET PO SCH (10:05)
[2016-10-03] MEDS: QUETIAPINE FUMARATE 100 MG TABLET PO SCH (10:05)
[2016-10-03] MEDS: LANSOPRAZOLE 30 MG TAB.RAP.DR PO SCH (10:06)
[2016-10-03] MEDS: ARIPIPRAZOLE 5 MG TABLET PO SCH ×2 (10:06→17:20)
[2016-10-03] MEDS: SITAGLIPTIN PHOSPHATE 50 MG TABLET PO SCH (10:06)
[2016-10-03] MEDS: MAGNESIUM OXIDE 400 MG TABLET PO SCH ×2 (10:06→17:20)
[2016-10-03] MEDS: FUROSEMIDE 40 MG TABLET PO SCH ×2 (10:07→17:19)
[2016-10-03] MEDS: FERROUS SULFATE 325 MG TABLET PO SCH ×2 (10:07→17:19)
[2016-10-03] MEDS: LEVOTHYROXINE SODIUM 0.05 MG TABLET PO SCH (10:07)
[2016-10-03] MEDS: INSULIN GLARGINE,HUM.REC.ANLOG 1,000 UNIT/10 ML UNIT SUBCUT SCH (10:07)
[2016-10-03] MEDS: BUDESONIDE/FORMOTEROL 160-4.5 MCG 60 PUFF/6 GM MDI IH SCH ×2 (10:07→22:58)
[2016-10-03] MEDS: NYSTATIN CREAM 15 GM TP SCH ×2 (10:08→17:20)
[2016-10-03] MEDS ORDERED: BUPROPION HCL 75 MG TABLET PO ONE (11:30)
[2016-10-03 14:09] LABS: APPEARANCE,URINE SLIGHTLY-CLOUDY; BILIRUBIN,URINE NEGATIVE (NEGATIVE); GLUCOSE, URINE NEGATIVE (NEGATIVE); KETONES,URINE NEGATIVE (NEGATIVE); LEUKOCYTE ESTERASE,URINE NEGATIVE (NEGATIVE); NITRITE,URINE NEGATIVE (NEGATIVE); PROTEIN,URINE NEGATIVE (NEGATIVE); URINE SPECIFIC GRAVITY 1.016; UROBILINOGEN,URINE NEGATIVE mg/dL (<2.0)
[2016-10-03] MEDS: INSULIN LISPRO 100 UNIT/ML 3 ML VIAL SUBCUT PRN ×2 (16:36→22:59)
--- NOTE | 2016-10-03 18:05 | PDOC H&P ---
History of Present Illness Admission Date/PCP: 10/02/16 21:40 JASSON MARTINEZKANDACEWhit Patient complains of: Nausea, vomiting, diarrhea History of Present Illness: SANTOS NAVARRO is a 56 year old female known to my practice who was discharged from this facility on 09/30/2016 after eventful stay for significant anemia for which she eventually refused PRBC transfusion. Patient reported onset of nausea , vomiting ad diarrhea a day prior to her walking into the ED. She claimed generalized abdominal but denied rectal pain. Patient reported episode of dark emesis and bright red hematochezia.She denied any voiding problem with regard to dysuria, urinary frequency, flank pain, hematochezia, or hematuria. She does have history of intermittent rectal bleeding for which she has had extensive evaluation for source of bleeding. She was to be arranged for capsule endoscopy with Dr Hancock on outpatient basis. Patient's parents are Jehovah Witnesses and patient has flipped in and out of accepting blood transfusion. Past Medical History Cardiac Medical History: Reports: Congestive Heart Failure, Coronary Artery Disease, Myocardial Infarction, Hyperlipidema, Hypertension, Peripheral Vascular Disease Denies: Heart Murmur Pulmonary Medical History: Reports: Asthma, Bronchitis, Chronic Obstructive Pulmonary Disease (COPD) - Oxygen use at home, inhaler., Sleep Apnea Denies: Respiratory Failure, Tuberculosis Neurological Medical History: Reports: Migraine, Seizures Endocrine Medical History: Reports: Diabetes Mellitus Type 2, Hyperthyroidism, Hypothyroidism Renal/ Medical History: Reports: End Stage Renal Disease - Stage IV GI Medical History: Reports: Gastroesophageal Reflux Disease Musculoskeltal Medical History: Reports: Fibromyalgia Psychiatric Medical History: Reports: Bipolar Disorder, Depression, Post Traumatic Stress Disorder Hematology: Reports: Anemia Denies: Hemophilia, Sickle Cell Disease, Bleeding Tendencies Past Surgical History Past Surgical History: Reports: Cardiac Catheterization, Section - x2, Coronary Artery Bypass Graft, Coronary Stent - x2, Hysterectomy, Orthopedic Surgery - christine knee surgery, christine feet surgery, Tubal Ligation Denies: Amputation Social History Smoking Status: Never Smoker Frequency of Alcohol Use: None Hx Recreational Drug Use: No Drugs: None Hx Prescription Drug Abuse: No - Advance Directive Resuscitation Status: Full Code Family History Family History: None Parental Family History Reviewed: Yes Children Family History Reviewed: Yes Sibling(s) Family History Reviewed.: Yes Medication/Allergy Home Medications: Albuterol Sulfate [Proair HFA] 2 puff IH Q4 PRN 09/29/16 Amitriptyline HCl [Elavil 150 mg Tablet] 150 mg PO QHS 09/29/16 Aripiprazole [Aripiprazole Odt] 15 mg PO BID 09/29/16 Benztropine Mesylate [Cogentin 1 mg Tablet] 1 mg PO BID 09/29/16 Budesonide/Formoterol Fumarate [Symbicort HFA 160-4.5 mcg Inhaler 6 gm] 2 puff IH Q12 09/29/16 Bupropion HCl [Bupropion HCl Sr] 150 mg PO DAILY 09/29/16 Dexlansoprazole [Dexilant 60 mg Capsule] 60 mg PO DAILY 09/29/16 Diazepam [Valium 5 mg Tablet] 5 mg PO QHS 09/29/16 Duloxetine HCl [Cymbalta] 60 mg PO Q12 09/29/16 Ferrous Sulfate [Feosol 325 mg Tablet] 325 mg PO BID 09/29/16 Furosemide [Lasix] 40 mg PO BID 09/29/16 Gabapentin [Neurontin 300 mg Capsule] 300 mg PO Q8 09/29/16 Insulin Aspart [Novolog Flexpen] 0 unit SUBCUT .SLD SCALE 09/29/16 Insulin Glargine,Hum.rec.anlog [Lantus Solostar] 55 unit SQ DAILY 09/29/16 Insulin Glargine,Hum.rec.anlog [Lantus Solostar] 65 unit SQ QHS 09/29/16 Levothyroxine Sodium [Synthroid] 50 mcg PO DAILY 09/29/16 Liraglutide [Victoza 2-Armando] 1.8 mg SQ DAILY 09/29/16 Lubiprostone [Amitiza 24 Mcg Capsule] 24 mcg PO Q12 09/29/16 Magnesium Oxide [Magnesium] 400 mg PO BID 09/29/16 Methocarbamol [Robaxin 500 mg Tablet] 500 mg PO TIDP PRN 09/29/16 Nitroglycerin [Nitro-Dur 5 mg (0.2 mg/Hr) Transdermal Patch] 1 patch TD QAM Nitroglycerin [Nitrostat 0.4 mg (1/150 Gr) Tabs 25/Bottle] 1 tab SL Q5MP PRN Nystatin [Mycostatin Cream 15 gm] 1 applic TP BID 09/29/16 Olmesartan Medoxomil [Benicar] 20 mg PO DAILY 09/29/16 Oxycodone HCl/Acetaminophen [Oxycodon-Acetaminophen 7.5-325] 1 tab PO Q4HP PRN 09/29/16 Quetiapine Fumarate [Seroquel] 400 mg PO DAILY 09/29/16 Saxagliptin Hydrochloride [Onglyza] 2.5 mg PO DAILY 09/29/16 Simvastatin [Zocor 20 mg Tablet] 20 mg PO QHS 09/29/16 Trazodone HCl [Desyrel] 600 mg PO QHS 09/29/16 Zolpidem Tartrate [Ambien] 20 mg PO HSP PRN 09/29/16 Allergies/Adverse Reactions: cephalexin monohydrate [From Keflex] Allergy (Unknown, Verified 10/02/16 12:30) codeine [Codeine] Allergy (Unknown, Verified 10/02/16 12:30) dicyclomine HCl [From Bentyl] Allergy (Unknown, Verified 10/02/16 12:30) hydrocodone bitartrate [From Vicodin] Allergy (Unknown, Verified 10/02/16 12:30) meloxicam [From Mobic] Allergy (Unknown, Verified 10/02/16 12:30) meperidine HCl [From Demerol (PF)] Allergy (Unknown, Verified 10/02/16 12:30) morphine [Morphine] Allergy (Unknown, Verified 10/02/16 12:30) naproxen sodium [From Naprelan CR Dosepak] Allergy (Unknown, Verified 10/02/16 12:30) nitrofurantoin [From Macrobid] Allergy (Unknown, Verified 10/02/16 12:30) pantoprazole sodium [From Protonix] Allergy (Unknown, Verified 10/02/16 12:30) Penicillins Allergy (Unknown, Verified 10/02/16 12:30) Sulfa (Sulfonamide Antibiotics) Allergy (Unknown, Verified 10/02/16 12:30) tramadol HCl [From Ultracet] Allergy (Unknown, Verified 10/02/16 12:30) lamotrigine [From Lamictal] Allergy (Verified 10/02/16 12:30) rash Physical Exam Vital Signs: Temp Pulse Resp BP Pulse Ox 98.1 F 95 16 125/67 98 10/03/16 12:06 10/03/16 14:00 10/03/16 12:06 10/03/16 12:06 10/03/16 12:06 Intake & Output 10/02/16 10/03/16 10/04/16 06:59 06:59 06:59 Intake Total 25 Balance 25 General appearance: PRESENT: no acute distress, cooperative, morbidly obese Head exam: PRESENT: atraumatic, normocephalic Eye exam: PRESENT: conjunctiva pink, EOMI, PERRLA. ABSENT: scleral icterus Ear exam: PRESENT: normal external ear exam Mouth exam: PRESENT: moist Throat exam: ABSENT: post pharyngeal erythema, tonsillar erythema, tonsillar exudate, tonsillogmegaly, other Neck exam: PRESENT: full ROM. ABSENT: carotid bruit, JVD, lymphadenopathy, thyromegaly Respiratory exam: PRESENT: clear to auscultation christine Cardiovascular exam: PRESENT: RRR. ABSENT: diastolic murmur, rubs, systolic murmur GI/Abdominal exam: PRESENT: normal bowel sounds, soft. ABSENT: distended, guarding, mass, organolmegaly, rebound, tenderness Rectal exam: PRESENT: deferred Musculoskeletal exam: PRESENT: deformity - related to arthritis involvement on multiple joints. Neurological exam: PRESENT: alert, awake, oriented to person, oriented to place , oriented to time, oriented to situation, CN II-XII grossly intact. ABSENT: motor sensory deficit Psychiatric exam: PRESENT: appropriate affect, normal mood. ABSENT: homicidal ideation, suicidal ideation Skin exam: PRESENT: dry, intact, warm. ABSENT: cyanosis, rash Results Laboratory Results: 10/03/16 13:50 Urine Color YELLOW Urine Appearance SLIGHTLY-CLOUDY Urine pH 6.0 Ur Specific [place] 1.016 Urine Protein NEGATIVE Urine Glucose (UA) NEGATIVE Urine Ketones NEGATIVE Urine Blood NEGATIVE Urine Nitrite NEGATIVE Ur Leukocyte Esterase NEGATIVE Urine WBC (Auto) 2 Urine RBC (Auto) 1 Assessment & Plan - Diagnosis (1) Nausea and vomiting in adult Is this a current diagnosis for this admission?: YesPlan: See admitting physician orders. (2) Diarrhea in adult patient Is this a current diagnosis for this admission?: YesPlan: See admitting physician orders. (3) Chronic kidney disease Qualifiers: Chronic kidney disease stage: stage 3 (moderate) Qualified Code(s): N18.3 - Chronic kidney disease, stage 3 (moderate) Is this a current diagnosis for this admission?: YesPlan: See admitting physician orders. (4) Bipolar 1 disorder, depressed Is this a current diagnosis for this admission?: YesPlan: See admitting physician orders. (5) Coronary artery dilation Is this a current diagnosis for this admission?: YesPlan: See admitting physician orders. (6) HTN (hypertension) Qualifiers: Hypertension type: essential hypertension Qualified Code(s): I10 - Essential (primary) hypertension Plan: See admitting physician orders. (7) Anemia associated with acute blood loss Is this a current diagnosis for this admission?: YesPlan: See admitting physician orders. 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
[2016-10-03] MEDS ORDERED: DIAZEPAM 5 MG TABLET PO SCH (22:00)
[2016-10-03] MEDS ORDERED: BUPROPION HCL 75 MG TABLET PO SCH (22:00)
[2016-10-03] MEDS ORDERED: AMITRIPTYLINE HCL 75 MG TABLET PO SCH (22:00)
[2016-10-03] MEDS ORDERED: INSULIN GLARGINE,HUM.REC.ANLOG 1,000 UNIT/10 ML UNIT SUBCUT SCH (22:00)
[2016-10-03] MEDS: SIMVASTATIN 10 MG TABLET PO SCH (22:59)
[2016-10-03] MEDS: TRAZODONE HCL 50 MG TABLET PO SCH (23:00)
[2016-10-03] MEDS: BUPROPION HCL 75 MG TABLET PO SCH (23:00)
[2016-10-04] MEDS: GABAPENTIN 300 MG CAPSULE PO SCH (06:33)
[2016-10-04] MEDS: NITROGLYCERIN 5 MG (0.2 MG/HR) PATCH.TD24 TD SCH (08:44)
[2016-10-04] MEDS: LANSOPRAZOLE 30 MG TAB.RAP.DR PO SCH (08:56)
[2016-10-04] MEDS: MAGNESIUM OXIDE 400 MG TABLET PO SCH (08:56)
[2016-10-04] MEDS: LOSARTAN POTASSIUM 50 MG TABLET PO SCH (08:56)
[2016-10-04] MEDS: DULOXETINE HCL 30 MG CAPSULE.DR PO SCH (08:56)
[2016-10-04] MEDS: ARIPIPRAZOLE 5 MG TABLET PO SCH (08:57)
[2016-10-04] MEDS: BENZTROPINE MESYLATE 1 MG TABLET PO SCH (08:57)
[2016-10-04] MEDS: FERROUS SULFATE 325 MG TABLET PO SCH (08:57)
[2016-10-04] MEDS: LEVOTHYROXINE SODIUM 0.05 MG TABLET PO SCH (08:58)
[2016-10-04] MEDS: SITAGLIPTIN PHOSPHATE 50 MG TABLET PO SCH (08:58)
[2016-10-04] MEDS: FUROSEMIDE 40 MG TABLET PO SCH (08:58)
[2016-10-04] MEDS: QUETIAPINE FUMARATE 100 MG TABLET PO SCH (08:58)
[2016-10-04] MEDS: INSULIN GLARGINE,HUM.REC.ANLOG 1,000 UNIT/10 ML UNIT SUBCUT SCH (08:59)
[2016-10-04] MEDS: BUPROPION HCL 75 MG TABLET PO SCH (09:00)
[2016-10-04] MEDS: BUDESONIDE/FORMOTEROL 160-4.5 MCG 60 PUFF/6 GM MDI IH SCH (09:00)
[2016-10-04] MEDS: LUBIPROSTONE 24 MCG CAPSULE PO SCH (09:00)
[2016-10-04] MEDS: NYSTATIN CREAM 15 GM TP SCH (09:01)
[2016-10-04 09:29] VITALS: BP 119/56
--- NOTE | 2016-10-04 18:38 | PDOC DISCHARGE SUMMARY ---
General - Admit/Disc Date/PCP Admission Date/Primary Care Provider: 10/02/16 21:40 JASSON VINI Discharge Date: 10/04/16 - Discharge Diagnosis (1) Nausea and vomiting in adult Is this a current diagnosis for this admission?: Yes (2) Diarrhea in adult patient Is this a current diagnosis for this admission?: Yes (3) Chronic kidney disease Is this a current diagnosis for this admission?: Yes (4) Bipolar 1 disorder, depressed Is this a current diagnosis for this admission?: Yes (5) Coronary artery dilation Is this a current diagnosis for this admission?: Yes (7) Anemia associated with acute blood loss Is this a current diagnosis for this admission?: Yes - Additional Information Resuscitation Status: Full Code Home Medications: Albuterol Sulfate [Proair HFA] 2 puff IH Q4 PRN 09/29/16 Amitriptyline HCl [Elavil 150 mg Tablet] 150 mg PO QHS 09/29/16 Aripiprazole [Aripiprazole Odt] 15 mg PO BID 09/29/16 Benztropine Mesylate [Cogentin 1 mg Tablet] 1 mg PO BID 09/29/16 Budesonide/Formoterol Fumarate [Symbicort HFA 160-4.5 mcg Inhaler 6 gm] 2 puff IH Q12 09/29/16 Bupropion HCl [Bupropion HCl Sr] 150 mg PO DAILY 09/29/16 Dexlansoprazole [Dexilant 60 mg Capsule] 60 mg PO DAILY 09/29/16 Diazepam [Valium 5 mg Tablet] 5 mg PO QHS 09/29/16 Duloxetine HCl [Cymbalta] 60 mg PO Q12 09/29/16 Ferrous Sulfate [Feosol 325 mg Tablet] 325 mg PO BID 09/29/16 Furosemide [Lasix] 40 mg PO BID 09/29/16 Gabapentin [Neurontin 300 mg Capsule] 300 mg PO Q8 09/29/16 Insulin Aspart [Novolog Flexpen] 0 unit SUBCUT .SLD SCALE 09/29/16 Insulin Glargine,Hum.rec.anlog [Lantus Solostar] 55 unit SQ DAILY 09/29/16 Insulin Glargine,Hum.rec.anlog [Lantus Solostar] 65 unit SQ QHS 09/29/16 Levothyroxine Sodium [Synthroid] 50 mcg PO DAILY 09/29/16 Liraglutide [Victoza 2-Armando] 1.8 mg SQ DAILY 09/29/16 Lubiprostone [Amitiza 24 Mcg Capsule] 24 mcg PO Q12 09/29/16 Magnesium Oxide [Magnesium] 400 mg PO BID 09/29/16 Methocarbamol [Robaxin 500 mg Tablet] 500 mg PO TIDP PRN 09/29/16 Nitroglycerin [Nitro-Dur 5 mg (0.2 mg/Hr) Transdermal Patch] 1 patch TD QAM Nitroglycerin [Nitrostat 0.4 mg (1/150 Gr) Tabs 25/Bottle] 1 tab SL Q5MP PRN Nystatin [Mycostatin Cream 15 gm] 1 applic TP BID 09/29/16 Olmesartan Medoxomil [Benicar] 20 mg PO DAILY 09/29/16 Oxycodone HCl/Acetaminophen [Oxycodon-Acetaminophen 7.5-325] 1 tab PO Q4HP PRN 09/29/16 Quetiapine Fumarate [Seroquel] 400 mg PO DAILY 09/29/16 Saxagliptin Hydrochloride [Onglyza] 2.5 mg PO DAILY 09/29/16 Simvastatin [Zocor 20 mg Tablet] 20 mg PO QHS 09/29/16 Trazodone HCl [Desyrel] 600 mg PO QHS 09/29/16 Zolpidem Tartrate [Ambien] 20 mg PO HSP PRN 09/29/16 History of Present Illness Patient complains of: Nausea, vomiting, Diarrhea History of Present Illness: SANTOS NAVARRO is a 56 year old female known to my practice who was discharged from this facility on 09/30/2016 after eventful stay for significant anemia for which she eventually refused PRBC transfusion. Patient reported onset of nausea , vomiting ad diarrhea a day prior to her walking into the ED. She claimed generalized abdominal but denied rectal pain. Patient reported episode of dark emesis and bright red hematochezia.She denied any voiding problem with regard to dysuria, urinary frequency, flank pain, hematochezia, or hematuria. She does have history of intermittent rectal bleeding for which she has had extensive evaluation for source of bleeding. She was to be arranged for capsule endoscopy with Dr Hancock on outpatient basis. Patient's parents are Jehovah Witnesses and patient has flipped in and out of accepting blood transfusion. Hospital Course Hospital Course: Patient had a single episode of large bowel movement since admission but due to contamination with urine not acceptable for stool toxin titer evaluation. Patient did signed out against medical advice due to her claim of attending an appointment in [place], [place] with her parents. Physical Exam Vital Signs: Temp Pulse Resp BP Pulse Ox 98.2 F 98 19 119/56 L 94 10/04/16 08:01 10/04/16 08:01 10/04/16 08:01 10/04/16 08:01 10/04/16 08:01 Intake & Output 10/03/16 10/04/16 10/05/16 06:59 06:59 06:59 Intake Total 25 2357 Output Total 800 Balance 25 1557 Qualifiers PATEINT BEING DISCHARGED WITH ANY OF THE FOLLOWING DIAGNOSIS?: No Plan Discharge Plan: I did advice her to seek medical evaluation and assistance as appropriate in the future. Time Spent: Less than 30 Minutes
== END 2016-10-04 12:32 | disposition left against medical advice (07) | DRG 391 ==
LOC: ER 12:29 → UNDOADMIN 18:01 → EH 18:01 → 4N 21:10 → EH 21:40 → 4N 21:40
PROVIDERS: ADMIT Internal Medicine Geriatric Medicine; ATTEND Internal Medicine Geriatric Medicine
DX: R11.2 Nausea with vomiting, unspecified (principal); N18.6 End stage renal disease; I12.0 Hypertensive chronic kidney disease with stage 5 chronic kidney disease or end stage renal disease; D62 Acute posthemorrhagic anemia; R19.7 Diarrhea, unspecified; R10.84 Generalized abdominal pain; N18.9 Chronic kidney disease, unspecified; F31.9 Bipolar disorder, unspecified; I25.10 Atherosclerotic heart disease of native coronary artery without angina pectoris; I73.9 Peripheral vascular disease, unspecified; E11.9 Type 2 diabetes mellitus without complications; E03.9 Hypothyroidism, unspecified; E11.22 Type 2 diabetes mellitus with diabetic chronic kidney disease; K21.9 Gastro-esophageal reflux disease without esophagitis; F32.9 Major depressive disorder, single episode, unspecified; F43.10 Post-traumatic stress disorder, unspecified; Z79.4 Long term (current) use of insulin; Z79.899 Other long term (current) drug therapy; Z95.1 Presence of aortocoronary bypass graft; Z95.5 Presence of coronary angioplasty implant and graft; I25.2 Old myocardial infarction; Z88.8 Allergy status to other drugs, medicaments and biological substances; Z88.0 Allergy status to penicillin; Z88.1 Allergy status to other antibiotic agents
CPT/HCPCS: 36415; 80048; 81001; 82271; 82272; 82962; 85025; 85610; 85730; 86850; 86900; 86901; 87086; 96374; 99285; J1815; J2405; J2765; J3490; J7030; S0119

== ENCOUNTER 2016-11-08 08:16 | Day surgery (SDC) | payer MEDICARE, MEDICAID ==
[2016-11-08 09:09] VITALS: BP 127/75
[2016-11-08 09:33] LABS: HEMATOCRIT 26.8 % (36.0-47.0); HEMOGLOBIN 8.4 g/dL (12.0-15.5); HGB HCT DIFFERENCE -1.6; MEAN CORPUSCULAR HEMOGLOBIN 24.3 pg (27.0-33.4); MEAN CORPUSCULAR HGB CONC 31.3 g/dL (32.0-36.0); MEAN CORPUSCULAR VOLUME 78 fl (80-97); RED BLOOD COUNT 3.45 10^6/uL (3.72-5.28); RED CELL DISTRIBUTION WIDTH 20.8 % (11.5-14.0); WHITE BLOOD COUNT 8.6 10^3/uL (4.0-10.5)
[2016-11-08 09:42] LABS: PARTIAL THROMBOPLASTIN TIME 37.8 SEC (23.5-35.8)
[2016-11-08 09:56] LABS: BLOOD UREA NITROGEN 23 mg/dL (7-20); CREATININE RESULT 1.23 mg/dL (0.52-1.25)
== END 2016-11-08 09:30 | disposition home or self-care (01) ==
LOC: RAD 08:16
PROVIDERS: ATTEND Internal Medicine Medical Oncology
DX: D63.8 Anemia in other chronic diseases classified elsewhere (principal); E61.1 Iron deficiency; K90.9 Intestinal malabsorption, unspecified
CPT/HCPCS: 36415; 82565; 84520; 85027; 85610; 85730

== ENCOUNTER 2016-11-16 08:37 | Day surgery (SDC) | payer MEDICARE, MEDICAID ==
[2016-11-16] MEDS ORDERED: MIDAZOLAM 2 MG/2 ML INJ ONE (11:36)
[2016-11-16] MEDS ORDERED: FENTANYL CITRATE INJ/PF 100 MCG/2 ML AMPUL ONE (11:37)
[2016-11-17 11:08] LABS: HEMATOCRIT 27.6 % (36.0-47.0); HEMOGLOBIN 8.7 g/dL (12.0-15.5); HGB HCT DIFFERENCE -1.5; MEAN CORPUSCULAR HEMOGLOBIN 23.7 pg (27.0-33.4); MEAN CORPUSCULAR HGB CONC 31.5 g/dL (32.0-36.0); MEAN CORPUSCULAR VOLUME 75 fl (80-97); RED BLOOD COUNT 3.66 10^6/uL (3.72-5.28); RED CELL DISTRIBUTION WIDTH 20.2 % (11.5-14.0); WHITE BLOOD COUNT 8.4 10^3/uL (4.0-10.5)
[2016-11-17 11:37] LABS: PARTIAL THROMBOPLASTIN TIME 30.8 SEC (23.5-35.8); PROTHROMBIN TIME 13.6 SEC (11.4-15.4)
[2016-11-17 16:41] LABS: BLOOD UREA NITROGEN 29 mg/dL (7-20); CREATININE RESULT 1.24 mg/dL (0.52-1.25)
== END 2016-11-16 15:00 | disposition home or self-care (01) ==
LOC: RAD 08:37
PROVIDERS: ATTEND Internal Medicine Medical Oncology
PROC: 0QB33ZX Excision of Left Pelvic Bone, Percutaneous Approach, Diagnostic (ICD-10-PCS; principal; 2016-11-16)
DX: E61.1 Iron deficiency (principal); D63.8 Anemia in other chronic diseases classified elsewhere; K90.9 Intestinal malabsorption, unspecified; E11.9 Type 2 diabetes mellitus without complications; E66.9 Obesity, unspecified
CPT/HCPCS: 36415; 82962; 84520; 82565; 85027; 85610; 85730; 77012; 20225; J2250; J3010

== ENCOUNTER 2016-11-24 12:14 | Emergency (ER) | payer MEDICARE, MEDICAID ==
[2016-11-24 12:26] VITALS: BP 100/75
--- NOTE | 2016-11-24 13:58 | ER Document Report ---
ED Medical Screen (RME) - General Chief Complaint: Arm Injury Stated Complaint: FALL PAIN ALL OVER Time Seen by Provider: 11/24/16 13:56 Notes: Says she fell today, landing on her butt. She was in the process of being lifted up into her vehicle and fell from the lift. Says she also fell yesterday and hurt her left arm and left hand and back. Not sure why she fell. Patient is not real steady on her feet. She is on home oxygen. Chronic renal failure. Patient is moving her arm around fully without any apparent discomfort or pain or limitations. TRAVEL OUTSIDE OF THE [place] IN LAST 30 DAYS: No - Related Data Allergies/Adverse Reactions: cephalexin monohydrate [From Keflex] Allergy (Unknown, Verified 10/02/16 12:30) codeine [Codeine] Allergy (Unknown, Verified 10/02/16 12:30) dicyclomine HCl [From Bentyl] Allergy (Unknown, Verified 10/02/16 12:30) hydrocodone bitartrate [From Vicodin] Allergy (Unknown, Verified 10/02/16 12:30) meloxicam [From Mobic] Allergy (Unknown, Verified 10/02/16 12:30) meperidine HCl [From Demerol (PF)] Allergy (Unknown, Verified 10/02/16 12:30) morphine [Morphine] Allergy (Unknown, Verified 10/02/16 12:30) naproxen sodium [From Naprelan CR Dosepak] Allergy (Unknown, Verified 10/02/16 12:30) nitrofurantoin [From Macrobid] Allergy (Unknown, Verified 10/02/16 12:30) pantoprazole sodium [From Protonix] Allergy (Unknown, Verified 10/02/16 12:30) Penicillins Allergy (Unknown, Verified 10/02/16 12:30) Sulfa (Sulfonamide Antibiotics) Allergy (Unknown, Verified 10/02/16 12:30) tramadol HCl [From Ultracet] Allergy (Unknown, Verified 10/02/16 12:30) lamotrigine [From Lamictal] Allergy (Verified 10/02/16 12:30) rash Past Medical History - Social History Cigarette use (# per day): No Family history: Reviewed & Not Pertinent - Past Medical History Cardiac Medical History: Reports: Hx Congestive Heart Failure, Hx Coronary Artery Disease, Hx Heart Attack - 2 stents, Hx Hypercholesterolemia, Hx Hypertension, Hx Peripheral Vascular Disease Pulmonary Medical History: Reports: Hx Asthma, Hx Bronchitis, Hx COPD - Oxygen use at home, inhaler., Hx Sleep Apnea Neurological Medical History: Reports: Hx Migraine, Hx Seizures - last seizure 2015 Endocrine Medical History: Reports: Hx Diabetes Mellitus Type 2, Hx Hyperthyroidism, Hx Hypothyroidism Renal/ Medical History: Reports: Hx End Stage Renal Disease - Stage IV, Hx Renal Insufficiency GI Medical History: Reports: Hx Gastroesophageal Reflux Disease Musculoskeltal Medical History: Reports Hx Arthritis, Reports Hx Fibromyalgia, Reports Hx Muscle Weakness Psychiatric Medical History: Reports: Hx Bipolar Disorder, Hx Depression, Hx Post Traumatic Stress Disorder, Hx Schizophrenia Past Surgical History: Reports: Hx Cardiac Catheterization, Hx Section - x2, Hx Coronary Artery Bypass Graft, Hx Coronary Stent - x2, Hx Hysterectomy, Hx Orthopedic Surgery - christine knee surgery, christine feet surgery, Hx Tubal Ligation - Immunizations Hx Diphtheria, Pertussis, Tetanus Vaccination: Yes Review of Systems - Review of Systems Constitutional: denies: Fever Cardiovascular: denies: Chest pain Respiratory: Short of breath - Chronic, on home O2 Gastrointestinal: denies: Abdominal pain, Diarrhea, Vomiting Musculoskeletal: See HPI Physical Exam - Vital signs Vitals: Temp Pulse Resp BP Pulse Ox 98.1 F 111 H 18 100/75 100 11/24/16 12:23 11/24/16 12:23 11/24/16 12:23 11/24/16 12:23 11/24/16 12:23 Interpretation: Normal, Other - On oxygen - Notes Notes: PHYSICAL EXAMINATION: GENERAL: Well-appearing, in no acute distress. On oxygen and vital signs are normal. HEAD: Atraumatic, normocephalic. EYES: Pupils equal round and reactive to light, extraocular movements intact. ENT: oropharynx clear without exudates. Moist mucous membranes. NECK: Normal range of motion, supple. LUNGS: Breath sounds clear and equal bilaterally. HEART: Regular rate and rhythm without murmurs. ABDOMEN: Soft, nontender. No guarding or rebound. BACK: No tenderness throughout entire back. EXTREMITIES: Normal range of motion without pain. None of the patient's left arm and other complaints appear to be present during my examination. NEUROLOGICAL: Normal speech, normal gait. Normal sensory, motor, and reflex exams. Awake, alert, and oriented x3. Cranial nerves normal. PSYCH: Normal mood, normal affect. SKIN: Warm, dry, no rashes. Course - Re-evaluation Re-evalutation: 11/24/16 21:24 She decided she needed to leave because her ride was leaving and she would have no way home if she did leave now. She did get further evaluated, but I do not think she needs any further evaluation. She shows no evidence of any significant injury. She can return if she should develop new or other findings. - Vital Signs Vital signs: Temp Pulse Resp BP Pulse Ox 98.1 F 111 H 18 100/75 100 11/24/16 12:23 11/24/16 12:23 11/24/16 12:23 11/24/16 12:23 11/24/16 12:23 Doctor's Discharge - Discharge Clinical Impression: Falls Qualifiers: Encounter type: initial encounter Qualified Code(s): W19.XXXA - Unspecified fall, initial encounter Condition: Stable Disposition: HOME, SELF-CARE Additional Instructions: MUSCLE STRAIN: You have strained a muscle -- torn the fibers within the muscle. This often occurs with strenuous exertion, or during an injury that suddenly stretches the muscle. The seriousness of a strain varies. Some strains heal within days, others cause problems for months. X-rays cannot show a muscle strain. X-rays are taken only if symptoms suggest that a fracture could be present. The usual treatment of a muscle strain is rest and ice packs. Sometimes, a sling, splint, or crutches may be necessary to rest the muscle. The muscle can be used again once pain subsides. Severe strains require a special exercise and stretching program to prevent permanent stiffness and disability. Your doctor will advise you if this will be necessary. Call the doctor immediately if pain or swelling becomes severe, or if numbness or discoloration develop. CONTUSION: Your injury has resulted in a contusion -- a crushing of the deep tissues. No injury to important structures was detected during the physician's exam. Contusions vary in the amount of pain they cause, and in the length of time required for healing. Typically, the area will become bruised, and will remain painful to touch for two or three weeks. However, most patients are back to working and playing within a few days. After the initial period of rest and cold-packs, your symptoms (together with the doctor's recommendations) will determine how rapidly you can get back to full activity. Usually this means "do what feels okay, but don't do things that hurt." If re-examination was recommended, it's important to follow up as instructed. Call the doctor or return any time if pain increases, if swelling becomes severe, if you develop numbness or weakness in an injured extremity, or if any other alarming symptoms occur. LOW BACK PAIN: Three out of every four people will have an episode of disabling back pain during their lifetime. Most commonly the pain is due to straining of the muscles and ligaments in the low back. Usual treatment includes: (1) Rest on a firm surface. Avoid lying on your stomach. (2) Ice pack the painful area. After a few days, gentle heat may be used intermittently to relax the area, or ice packs can be continued. (3) Medication may be needed -- muscle relaxers and antiinflammatory medicines are commonly used. (4) As the back improves, exercises are prescribed to strengthen the back and abdominal muscles. Your doctor will advise you on the proper care for your back at each stage in your recovery. You may be better in a few days -- or healing may take several weeks. If new symptoms of a "herniated disc" (radiation of pain, numbness, or tingling down the back of the leg or weakness in the leg) occur, you should be re-examined. Further testing may be necessary. USE OF TYLENOL (ACETAMINOPHEN): Acetaminophen may be taken for pain relief or fever control. It's much safer than aspirin, offering a wider range of "safe" dosages. It is safe during . Some brand names are Tylenol, Panadol, Datril, Anacin 3, Tempra, and Liquiprin. Acetaminophen can be repeated every four hours. The following are maximum recommended dosages: WEIGHT Dose Drops Elixir Chewable( 80mg) (LBS.) drprs=droppers tsp=teaspoon >89 pounds or adults 650 mg to 900 mg Acetaminophen can be repeated every four hours. Maximum dose not to exceed 4000 mg a day. These maximum recommended dosages are slightly higher than the dosages written on the product container, but these dosages are very safe and below the toxic dosage for acetaminophen. ICE PACKS: Apply ice packs frequently against the painful area. Many different schedules are recommended, such as "20 minutes on, 20 minutes off" or "one hour ice, two hours rest." If you need to work, you may need to go longer between ice treatments. You should plan to have the area ice packed AT LEAST one fourth of the time. The ice should be applied over the wrap, tape, or splint, or over a layer of cloth -- not directly against the skin. Some ice bags have a built-in cloth and can be put directly on the skin. WARM PACKS: After approximately two days, apply gentle heat (such as a heating pad or hot water bottle) for about 20 to 30 minutes about every two hours -- at least four times daily. Warmth and elevation will help you make a more rapid recovery , and will ease the pain considerably. Do not use HOT heat, and never apply heat for longer than 30 minutes. The continuous heat can invisibly damage skin and muscles -- even when no burn is seen on the surface. Damaged muscles can make you MORE sore. FOLLOW-UP CARE: If you have been referred to a physician for follow-up care, call the physician s office for an appointment as you were instructed or within the next two days. If you experience worsening or a significant change in your symptoms, notify the physician immediately or return to the Emergency Department at any time for re-evaluation. Referrals: JASSON MARTINI MD [Primary Care Provider] - Follow up as needed
== END 2016-11-24 14:49 | disposition home or self-care (01) ==
LOC: ER 12:14
DX: M79.602 Pain in left arm (principal); M79.642 Pain in left hand; M54.9 Dorsalgia, unspecified; W19.XXXA Unspecified fall, initial encounter; R26.81 Unsteadiness on feet; E11.22 Type 2 diabetes mellitus with diabetic chronic kidney disease; I12.0 Hypertensive chronic kidney disease with stage 5 chronic kidney disease or end stage renal disease; N18.6 End stage renal disease; I25.10 Atherosclerotic heart disease of native coronary artery without angina pectoris; J44.9 Chronic obstructive pulmonary disease, unspecified; Z99.81 Dependence on supplemental oxygen; Z88.1 Allergy status to other antibiotic agents; Z88.5 Allergy status to narcotic agent; Z88.8 Allergy status to other drugs, medicaments and biological substances; Z88.0 Allergy status to penicillin; Z88.2 Allergy status to sulfonamides; I25.2 Old myocardial infarction; Z95.1 Presence of aortocoronary bypass graft; Z98.61 Coronary angioplasty status
CPT/HCPCS: 99283

== ENCOUNTER 2016-12-01 10:22 | Emergency (ER) | payer MEDICARE, MEDICAID ==
--- NOTE | 2016-12-01 10:39 | ER Document Report ---
ED General - General Stated Complaint: WEAKNESS Time Seen by Provider: 12/01/16 10:38 Mode of Arrival: Medic Information source: Patient Notes: This is a 56-year-old female with a history of multiple medical problems including morbid obesity, COPD (oxygen dependent), obstructive sleep apnea, congestive heart failure, coronary artery disease ([place]), hypertension, peripheral vascular disease, chronic kidney disease and anemia. Patient has had multiple admissions recently for symptomatic anemia and has refused transfusions in the past because of in the past and anemia. Patient is brought in by EMS because of generalized weakness and "low blood counts". Patient states "I do not want a transfusion". Patient states that although she is not a Denominational anymore, she was raised as a Denominational. TRAVEL OUTSIDE OF THE [place] IN LAST 30 DAYS: No - HPI Onset: Last week Onset/Duration: Gradual Quality of pain: No pain Severity: None Pain Level: Denies Associated symptoms: denies: Chest pain, Fever, Shortness of breath Exacerbated by: Denies Relieved by: Denies Similar symptoms previously: No Recently seen / treated by doctor: No - Related Data Allergies/Adverse Reactions: cephalexin monohydrate [From Keflex] Allergy (Unknown, Verified 12/01/16 11:35) codeine [Codeine] Allergy (Unknown, Verified 12/01/16 11:35) dicyclomine HCl [From Bentyl] Allergy (Unknown, Verified 12/01/16 11:35) hydrocodone bitartrate [From Vicodin] Allergy (Unknown, Verified 12/01/16 11:35) meloxicam [From Mobic] Allergy (Unknown, Verified 12/01/16 11:35) meperidine HCl [From Demerol (PF)] Allergy (Unknown, Verified 12/01/16 11:35) morphine [Morphine] Allergy (Unknown, Verified 12/01/16 11:35) naproxen sodium [From Naprelan CR Dosepak] Allergy (Unknown, Verified 12/01/16 11:35) nitrofurantoin [From Macrobid] Allergy (Unknown, Verified 12/01/16 11:35) pantoprazole sodium [From Protonix] Allergy (Unknown, Verified 12/01/16 11:35) Penicillins Allergy (Unknown, Verified 12/01/16 11:35) Sulfa (Sulfonamide Antibiotics) Allergy (Unknown, Verified 12/01/16 11:35) tramadol HCl [From Ultracet] Allergy (Unknown, Verified 12/01/16 11:35) lamotrigine [From Lamictal] Allergy (Verified 12/01/16 11:35) rash Past Medical History - General Information source: Patient - Social History Smoking Status: Never Smoker Cigarette use (# per day): No Chew tobacco use (# tins/day): No Frequency of alcohol use: None Drug Abuse: None Lives with: Family Family History: None Patient has suicidal ideation: No Patient has homicidal ideation: No - Past Medical History Cardiac Medical History: Reports: Hx Congestive Heart Failure, Hx Coronary Artery Disease, Hx Heart Attack - 2 stents, Hx Hypercholesterolemia, Hx Hypertension, Hx Peripheral Vascular Disease Denies: Hx Heart Murmur Pulmonary Medical History: Reports: Hx Asthma, Hx Bronchitis, Hx COPD - Oxygen use at home, inhaler., Hx Sleep Apnea Denies: Hx Pneumonia, Hx Respiratory Failure, Hx Tuberculosis Neurological Medical History: Reports: Hx Migraine, Hx Seizures - last seizure 2015. Denies: Hx Cerebrovascular Accident Endocrine Medical History: Reports: Hx Diabetes Mellitus Type 2, Hx Hyperthyroidism, Hx Hypothyroidism Renal/ Medical History: Reports: Hx End Stage Renal Disease - Stage IV, Hx Renal Insufficiency. Denies: Hx Peritoneal Dialysis GI Medical History: Reports: Hx Gastroesophageal Reflux Disease Musculoskeltal Medical History: Reports Hx Arthritis, Reports Hx Fibromyalgia, Reports Hx Muscle Weakness Psychiatric Medical History: Reports: Hx Bipolar Disorder, Hx Depression, Hx Post Traumatic Stress Disorder, Hx Schizophrenia Past Surgical History: Reports: Hx Cardiac Catheterization, Hx Section - x2, Hx Coronary Artery Bypass Graft, Hx Coronary Stent - x2, Hx Hysterectomy, Hx Orthopedic Surgery - christine knee surgery, christine feet surgery, Hx Tubal Ligation - Immunizations Hx Diphtheria, Pertussis, Tetanus Vaccination: Yes Hx Pneumococcal Vaccination: 04/02/13 Review of Systems - Review of Systems Constitutional: Weakness EENT: No symptoms reported Cardiovascular: No symptoms reported Respiratory: No symptoms reported Gastrointestinal: No symptoms reported Genitourinary: No symptoms reported Female Genitourinary: No symptoms reported Musculoskeletal: No symptoms reported Skin: No symptoms reported Hematologic/Lymphatic: No symptoms reported Neurological/Psychological: See HPI Physical Exam - Vital signs Vitals: Resp 18 12/01/16 10:56 Notes: Physical exam: GENERAL: Morbidly obese 56-year-old female on oxygen. HEAD: Atraumatic, normocephalic. EYES: Pupils equal round and reactive to light, extraocular movements intact, sclera anicteric, conjunctiva are normal. ENT: TMs normal, nares patent, oropharynx clear without exudates. Moist mucous membranes. NECK: Normal range of motion, supple without lymphadenopathy or JVD. LUNGS: Breath sounds clear to auscultation bilaterally and equal. No wheezes rales or rhonchi. HEART: Regular rate and rhythm without murmurs, rubs or gallops. ABDOMEN: Soft, normoactive bowel sounds. No tenderness to palpation. No guarding, no rebound. No masses appreciated. Rectal: Brown stool, sent for study. EXTREMITIES: Normal range of motion, no pitting or edema. No clubbing or cyanosis. NEUROLOGICAL: Cranial nerves II through XII grossly intact. Normal speech, normal gait. PSYCH: Normal mood, normal affect. SKIN: Warm, Dry, normal turgor, no rashes or lesions noted. Course - Re-evaluation Re-evalutation: 12/01/16 15:31 I have had multiple conversations with the patient regarding blood transfusions and the patient continues to absolutely refuse transfusions. The patient is alert and oriented 3 and she appears quite competent. I have discussed the case with the patient's jackaroo (Dr. Gaines) and she states she had conversations with the patient this past Monday and the patient was refusing transfusion at that time as well. She did recommend giving the patient another shot of Procrit which we have done here in the ER. He has had no bleeding lately. She has had a history of a hysterectomy. She has had a recent colonoscopy which she said was "clear". I have checked a rectal exam today and her stools without blood. Abdomen is soft and nontender. I have notified the patient's contact (Monik Becerra) and I have explained the situation to her. I have been in contact with other family members from [place] and I have explained the situation to them. They have brought up the concerns for leukemia. I let them know that the patient has had a bone marrow biopsy by Dr. Gaines and the biopsy results are pending. I have also told them that, the acute issue at hand today is the fact that she needs a blood transfusion and the patient adamantly refuses. I discussed the case with Dr. Martini that who is the patient's physician. He has stated that he is admitted the patient multiple times in the past because of this and ultimately, the patient always refuses transfusions. He states that the last time she finally agreed to a transfusion, she refused just before the actual transfusion and the blood was wasted. He basically elevated at that to admit this patient would be if she received a blood transfusion which is the reason why the patient is here. I have discussed the conversation with Dr Martini with the patient and she still refuses blood. She has requested to go home. I will make arrangements for transfer. 12/01/16 15:58 Note: In nature my discussions with the patient, Ms. Becerra and the family member for [place], I have made it bluntly clear that the level of anemia is acutely life-threatening and that the patient can if she does not get a transfusion. The patient, Ms. Becerra and the family member from [place] confirmed to me that they understood this. Note: The patient's parents that arrived. I have reviewed the events leading up to the patient's arrival to the ER as well as the patient's symptoms, my conversations mentioned above. I have reiterated that if the patient's anemia worsens, we will need to the patient's . They asked if there is anything we could do. I stated that with given the patient another shot of Procrit today for that will bring up the hemoglobin and hematocrit. They have reaffirmed that under no circumstances that they want the patient to have a blood transfusion. They did ask about whether the patient could have leukemia and I did tell him that the patient recently had a bone marrow biopsy and that Dr. Gaines is waiting on the results. Since the parents are in town ( from [place]), I have advised him to follow-up with Dr. Gaines tomorrow. 12/01/16 21:06 - Vital Signs Vital signs: Temp Pulse Resp BP Pulse Ox 73 16 96/65 L 97 12/01/16 17:41 12/01/16 17:41 12/01/16 17:41 12/01/16 17:41 - Laboratory Result Diagrams: 12/01/16 11:00 12/01/16 11:00 Laboratory results interpreted by me: 12/01/16 12/01/16 11:00 11:00 WBC 13.0 H RBC 2.34 L Hgb 5.4 L Hct 17.9 L MCV 77 L MCH 22.9 L MCHC 29.9 L RDW 20.6 H Band Neutrophils % 1 L Abs Neuts (Manual) 9.5 H BUN 25 H Creatinine 2.28 H Est GFR ( Amer) 27 L Est GFR (Non-Af Amer) 22 L Glucose 128 H - Diagnostic Test Radiology reviewed: Image reviewed, Reports reviewed - This infiltrates. The study is clearly limited based upon the patient's body habitus - EKG Interpretation by Me Rate: Normal Rhythm: NSR - EKG shows normal sinus rhythm with a ventricular rate of 94, no acute ST-T wave changes Critical Care Note - Critical Care Note Total time excluding time spent on procedures (mins): 60 Discharge - Discharge Clinical Impression: Symptomatic anemia Condition: Stable Disposition: HOME, SELF-CARE Additional Instructions: As we discussed, your blood counts are quite low. We are Respecting your decision respecting your decision not to have a blood transfusion. Received Procrit to help bring up your blood counts at the next few days. Follow-up with Dr. Martini and Dr. Guido this week. Referrals: JASSON MARTINI MD [ACTIVE STAFF] - Follow up in 3-5 days ANTOINE GAINES MD [ACTIVE STAFF] - Follow up in 3-5 days
[2016-12-01 11:25] LABS: HEMATOCRIT 17.9 % (36.0-47.0); HGB HCT DIFFERENCE -1.7; MEAN CORPUSCULAR HEMOGLOBIN 22.9 pg (27.0-33.4); MEAN CORPUSCULAR HGB CONC 29.9 g/dL (32.0-36.0); MEAN CORPUSCULAR VOLUME 77 fl (80-97); RED BLOOD COUNT 2.34 10^6/uL (3.72-5.28); RED CELL DISTRIBUTION WIDTH 20.6 % (11.5-14.0)
[2016-12-01 11:43] LABS: ALANINE AMINOTRANSFERASE 21 U/L (9-52); ALBUMIN 3.5 g/dL (3.5-5.0); ALKALINE PHOSPHATASE 112 U/L (38-126); ANION GAP 11 (5-19); ASPARTATE AMINO TRANSFERASE 21 U/L (14-36); BILIRUBIN,DIRECT 0.4 mg/dL (0.0-0.4); BILIRUBIN,TOTAL 0.4 mg/dL (0.2-1.3); BLOOD UREA NITROGEN 25 mg/dL (7-20); CALCIUM 9.3 mg/dL (8.4-10.2); CARBON DIOXIDE 26 mmol/L (22-30); CHLORIDE 102 mmol/L (98-107); CREATINE KINASE 41 U/L (30-135); CREATININE RESULT 2.28 mg/dL (0.52-1.25); GLUCOSE 128 mg/dL (75-110); POTASSIUM 4.6 mmol/L (3.6-5.0); SODIUM 139.3 mmol/L (137-145)
[2016-12-01 11:45] LABS: HEMOGLOBIN 5.4 g/dL (12.0-15.5)
[2016-12-01 11:52] LABS: CREATINE KINASE MB < 0.22 ng/mL (<4.55); TROPONIN I < 0.012 ng/mL
[2016-12-01 11:56] LABS: BAND NEUTROPHILS % (MANUAL) 1 % (3-5); BASOPHILS % (MANUAL) 0 % (0-2); EOSINOPHILS % (MANUAL) 2 % (0-6); LYMPHOCYTES % (MANUAL) 21 % (13-45); NUCLEATED RED BLOOD CELLS 3 /100 WBC (0); TOTAL CELLS COUNTED 100
[2016-12-01 12:00] LABS: ANISOCYTOSIS 2+; BURR CELLS SLIGHT; HYPOCHROMASIA 1+; MICROCYTOSIS SLIGHT; OVALOCYTES 1+; PLATELET CLUMPS PRESENT; POIKILOCYTOSIS 1+; POLYCHROMASIA 1+; TARGET CELLS SLIGHT; TEAR DROP CELLS SLIGHT
--- NOTE | 2016-12-01 12:16 | RADIOLOGY REPORT (SQ) ---
EXAM DESCRIPTION: CHEST SINGLE VIEW COMPLETED DATE/TIME: 12/01/2016 11:40 am REASON FOR STUDY: sob COMPARISON: 07/27/2016 EXAM PARAMETERS: NUMBER OF VIEWS: One view. TECHNIQUE: Single frontal radiographic view of the chest acquired. RADIATION DOSE: NA LIMITATIONS: None. FINDINGS: LUNGS AND PLEURA: No localized infiltrate is present. Chronic interstitial changes are verduzco ggested. Mild pulmonary edema is present. MEDIASTINUM AND HILAR STRUCTURES: No masses. Contour normal. HEART AND VASCULAR STRUCTURES: Cardiomegaly with mild pulmonary edema. BONES: No acute findings. HARDWARE: The dual-lumen catheter is present. The tip of the catheter is in the superior vena cava n ear the right atrium. OTHER: No other significant finding. IMPRESSION: Chronic lung changes with cardiomegaly and mild pulmonary edema. TECHNICAL DOCUMENTATION: JOB ID: [id number]
[2016-12-01] MEDS ORDERED: EPOETIN ALFA INJ 40000 UNIT/1 ML (ONCOLOGY) SUBCUT ONE (13:01)
[2016-12-01 17:42] VITALS: BP 96/65
--- NOTE | 2016-12-02 08:52 | EKG REPORT ---
SEVERITY:- ABNORMAL ECG - SINUS OR ECTOPIC ATRIAL RHYTHM PROBABLE INFERIOR INFARCT, AGE INDETERMINATE NONSPECIFIC T ABNORMALITIES, ANTERIOR LEADS : Confirmed by: Maurice Nieto 02-Dec-2016 08:51:34
== END 2016-12-01 17:42 | disposition home or self-care (01) ==
LOC: ER 10:22
DX: D64.9 Anemia, unspecified (principal); R53.1 Weakness; E66.01 Morbid (severe) obesity due to excess calories; I50.9 Heart failure, unspecified; I25.10 Atherosclerotic heart disease of native coronary artery without angina pectoris; E78.00 Pure hypercholesterolemia, unspecified; J44.9 Chronic obstructive pulmonary disease, unspecified; E11.22 Type 2 diabetes mellitus with diabetic chronic kidney disease; I13.2 Hypertensive heart and chronic kidney disease with heart failure and with stage 5 chronic kidney disease, or end stage renal disease; N18.5 Chronic kidney disease, stage 5; Z88.6 Allergy status to analgesic agent; Z88.0 Allergy status to penicillin; Z88.2 Allergy status to sulfonamides; Z95.1 Presence of aortocoronary bypass graft; Z90.710 Acquired absence of both cervix and uterus; I25.2 Old myocardial infarction
CPT/HCPCS: 93005; 99291; 96374; 36415; 82553; 82550; 85025; 82272; 80053; 84484; 83880; 71010; 93010; J0885

== ENCOUNTER 2016-12-12 04:28 | Inpatient (IN) | payer MEDICARE, MEDICAID ==
--- NOTE | 2016-12-12 05:26 | ER Document Report ---
ED Medical Screen (RME) - General Stated Complaint: GENERAL SICKNESS Time Seen by Provider: 12/12/16 05:20 Notes: 56 year old female, chief complaint weakness with unsteady gait and falling, states she fell back and hit her head earlier today. She is on Plavix. She also states she has increased shortness of breath, more than usual, with increased leg swelling bilaterally. She denies fever, chest pain, cough. She denies any areas of pain, states she just feels shaky and when she gets up she cannot even walk with her cane like normal. She lives alone. She came by EMS. TRAVEL OUTSIDE OF THE [place] IN LAST 30 DAYS: No - Related Data Allergies/Adverse Reactions: cephalexin monohydrate [From Keflex] Allergy (Unknown, Verified 12/01/16 11:35) codeine [Codeine] Allergy (Unknown, Verified 12/01/16 11:35) dicyclomine HCl [From Bentyl] Allergy (Unknown, Verified 12/01/16 11:35) hydrocodone bitartrate [From Vicodin] Allergy (Unknown, Verified 12/01/16 11:35) meloxicam [From Mobic] Allergy (Unknown, Verified 12/01/16 11:35) meperidine HCl [From Demerol (PF)] Allergy (Unknown, Verified 12/01/16 11:35) morphine [Morphine] Allergy (Unknown, Verified 12/01/16 11:35) naproxen sodium [From Naprelan CR Dosepak] Allergy (Unknown, Verified 12/01/16 11:35) nitrofurantoin [From Macrobid] Allergy (Unknown, Verified 12/01/16 11:35) pantoprazole sodium [From Protonix] Allergy (Unknown, Verified 12/01/16 11:35) Penicillins Allergy (Unknown, Verified 12/01/16 11:35) Sulfa (Sulfonamide Antibiotics) Allergy (Unknown, Verified 12/01/16 11:35) tramadol HCl [From Ultracet] Allergy (Unknown, Verified 12/01/16 11:35) lamotrigine [From Lamictal] Allergy (Verified 12/01/16 11:35) rash Past Medical History - Social History Family history: Reviewed & Not Pertinent - Past Medical History Cardiac Medical History: Reports: Hx Congestive Heart Failure, Hx Coronary Artery Disease, Hx Heart Attack - 2 stents, Hx Hypercholesterolemia, Hx Hypertension, Hx Peripheral Vascular Disease Denies: Hx Heart Murmur Pulmonary Medical History: Reports: Hx Asthma, Hx Bronchitis, Hx COPD - Oxygen use at home, inhaler., Hx Sleep Apnea Denies: Hx Pneumonia, Hx Respiratory Failure, Hx Tuberculosis Neurological Medical History: Reports: Hx Migraine, Hx Seizures - last seizure 2015. Denies: Hx Cerebrovascular Accident Endocrine Medical History: Reports: Hx Diabetes Mellitus Type 2, Hx Hyperthyroidism, Hx Hypothyroidism Renal/ Medical History: Reports: Hx End Stage Renal Disease - Stage IV, Hx Renal Insufficiency. Denies: Hx Peritoneal Dialysis GI Medical History: Reports: Hx Gastroesophageal Reflux Disease Musculoskeltal Medical History: Reports Hx Arthritis, Reports Hx Fibromyalgia, Reports Hx Muscle Weakness Psychiatric Medical History: Reports: Hx Bipolar Disorder, Hx Depression, Hx Post Traumatic Stress Disorder, Hx Schizophrenia Past Surgical History: Reports: Hx Cardiac Catheterization, Hx Section - x2, Hx Coronary Artery Bypass Graft, Hx Coronary Stent - x2, Hx Hysterectomy, Hx Orthopedic Surgery - christine knee surgery, christine feet surgery, Hx Tubal Ligation - Immunizations Hx Diphtheria, Pertussis, Tetanus Vaccination: Yes Physical Exam - Neurological Cognition: Normal. No: Confused, Inattentive [place] Coma Scale Eye Opening: Spontaneous Mary Coma Scale Verbal: Oriented Mary Coma Scale Motor: Obeys Commands Mary Coma Scale Total: 15 Speech: Normal Cranial nerves: Normal Cerebellar coordination: Other - patient very unsteady on her feet, fell back onto the bed Motor strength normal: LUE, RUE, LLE, RLE Course - Re-evaluation Re-evalutation: I have greeted and performed a rapid initial assessment of this patient. A comprehensive ED assessment and evaluation of the patient, analysis of test results and completion of the medical decision making process will be conducted by additional ED providers.
--- NOTE | 2016-12-12 06:20 | ER Document Report ---
ED General - General Stated Complaint: GENERAL SICKNESS Time Seen by Provider: 12/12/16 05:20 Mode of Arrival: Medic Information source: Patient Notes: 56 yr old female Jehov[employer] Witness noted to have hgb 5.3 yesterday and acute renal failure presents with complaints of weakness shakiness. pt has been adamant that she will not be transfused. TRAVEL OUTSIDE OF THE [place] IN LAST 30 DAYS: No - HPI Onset: Other Onset/Duration: Persistent Quality of pain: Achy Severity: Mild Pain Level: 1 Associated symptoms: Body/muscle aches, Weakness Exacerbated by: Denies Relieved by: Denies Similar symptoms previously: Yes Recently seen / treated by doctor: Yes - Related Data Allergies/Adverse Reactions: cephalexin monohydrate [From Keflex] Allergy (Unknown, Verified 12/01/16 11:35) codeine [Codeine] Allergy (Unknown, Verified 12/01/16 11:35) dicyclomine HCl [From Bentyl] Allergy (Unknown, Verified 12/01/16 11:35) hydrocodone bitartrate [From Vicodin] Allergy (Unknown, Verified 12/01/16 11:35) meloxicam [From Mobic] Allergy (Unknown, Verified 12/01/16 11:35) meperidine HCl [From Demerol (PF)] Allergy (Unknown, Verified 12/01/16 11:35) morphine [Morphine] Allergy (Unknown, Verified 12/01/16 11:35) naproxen sodium [From Naprelan CR Dosepak] Allergy (Unknown, Verified 12/01/16 11:35) nitrofurantoin [From Macrobid] Allergy (Unknown, Verified 12/01/16 11:35) pantoprazole sodium [From Protonix] Allergy (Unknown, Verified 12/01/16 11:35) Penicillins Allergy (Unknown, Verified 12/01/16 11:35) Sulfa (Sulfonamide Antibiotics) Allergy (Unknown, Verified 12/01/16 11:35) tramadol HCl [From Ultracet] Allergy (Unknown, Verified 12/01/16 11:35) lamotrigine [From Lamictal] Allergy (Verified 12/01/16 11:35) rash Past Medical History - Social History Smoking Status: Never Smoker Cigarette use (# per day): No Chew tobacco use (# tins/day): No Smoking Education Provided: No Family History: None - Past Medical History Cardiac Medical History: Reports: Hx Congestive Heart Failure, Hx Coronary Artery Disease, Hx Heart Attack - 2 stents, Hx Hypercholesterolemia, Hx Hypertension, Hx Peripheral Vascular Disease Denies: Hx Heart Murmur Pulmonary Medical History: Reports: Hx Asthma, Hx Bronchitis, Hx COPD - Oxygen use at home, inhaler., Hx Sleep Apnea Denies: Hx Pneumonia, Hx Respiratory Failure, Hx Tuberculosis Neurological Medical History: Reports: Hx Migraine, Hx Seizures - last seizure 2015. Denies: Hx Cerebrovascular Accident Endocrine Medical History: Reports: Hx Diabetes Mellitus Type 2, Hx Hyperthyroidism, Hx Hypothyroidism Renal/ Medical History: Reports: Hx End Stage Renal Disease - Stage IV, Hx Renal Insufficiency. Denies: Hx Peritoneal Dialysis GI Medical History: Reports: Hx Gastroesophageal Reflux Disease Musculoskeltal Medical History: Reports Hx Arthritis, Reports Hx Fibromyalgia, Reports Hx Muscle Weakness Psychiatric Medical History: Reports: Hx Bipolar Disorder, Hx Depression, Hx Post Traumatic Stress Disorder, Hx Schizophrenia Past Surgical History: Reports: Hx Cardiac Catheterization, Hx Section - x2, Hx Coronary Artery Bypass Graft, Hx Coronary Stent - x2, Hx Hysterectomy, Hx Orthopedic Surgery - christine knee surgery, christine feet surgery, Hx Tubal Ligation - Immunizations Hx Diphtheria, Pertussis, Tetanus Vaccination: Yes Hx Pneumococcal Vaccination: 04/02/13 Review of Systems - Review of Systems Notes: REVIEW OF SYSTEMS: CONSTITUTIONAL : Denies fever, chills, or sweats. Denies recent illness. EENT: Denies eye, ear, throat, or mouth pain or symptoms. Denies nasal or sinus congestion or discharge. Denies throat, tongue, or mouth swelling or difficulty swallowing. CARDIOVASCULAR: Denies chest pain. Denies palpitations or racing or irregular heart beat. Denies ankle edema. RESPIRATORY: Denies cough, cold, or chest congestion. Denies shortness of breath, difficulty breathing, or wheezing. GASTROINTESTINAL: Denies abdominal pain or distention. Denies nausea, vomiting , or diarrhea. Denies blood in vomitus, stools, or per rectum. Denies black, tarry stools. Denies constipation. GENITOURINARY: Denies difficulty urinating, painful urination, burning, frequency, blood in urine, or discharge. FEMALE GENITOURINARY: Denies vaginal bleeding, heavy or abnormal periods, irregular periods. Denies vaginal discharge or odor. MUSCULOSKELETAL: Denies back or neck pain or stiffness. Denies joint pain or swelling. SKIN: Denies rash, lesions or sores. HEMATOLOGIC : Denies easy bruising or bleeding. LYMPHATIC: Denies swollen, enlarged glands. NEUROLOGICAL: admits to weakness PHYSICAL EXAMINATION: GENERAL: obese female HEAD: Atraumatic, normocephalic. EYES: Pupils equal round and reactive to light, extraocular movements intact, conjunctiva are normal. ENT: Nares patent, oropharynx clear without exudates. Moist mucous membranes. NECK: Normal range of motion, supple without lymphadenopathy LUNGS: Breath sounds clear to auscultation bilaterally and equal. No wheezes rales or rhonchi. HEART: Regular rate and rhythm without murmurs ABDOMEN: Soft, nontender, nondistended abdomen. No guarding, no rebound. No masses appreciated. Female : deferred Musculoskeletal: Normal range of motion, no pitting or edema. No cyanosis. NEUROLOGICAL: Cranial nerves grossly intact. Normal speech, normal gait. Normal sensory, motor exams PSYCH: Normal mood, normal affect. SKIN: Warm, Dry, normal turgor, no rashes or lesions noted. PSYCHIATRIC: Denies anxiety or stress. Denies depression, suicidal ideation, or homicidal ideation. ALL OTHER SYSTEMS REVIEWED AND NEGATIVE. Dictation was performed using [employer] voice recognition software Course - Re-evaluation Re-evalutation: 12/12/16 06:20 pt still refuses blood, will reobtain labs 12/12/16 08:20 pts anemia is worsening, renal function is worsening, pt is critical, willl contact pcp for admission 12/12/16 08:23 Pt admitted [facility], I expect very poor prognosis due to renal failure and anemia - Laboratory Result Diagrams: 12/12/16 07:04 12/12/16 07:04 Laboratory results interpreted by me: 12/12/16 12/12/16 07:04 07:04 WBC 11.3 H RBC 2.00 L Hgb 4.7 L* Hct 15.9 L MCH 23.3 L MCHC 29.3 L RDW 23.1 H Sodium 134.6 L Potassium 5.5 H BUN 40 H Creatinine 4.30 H Est GFR ( Amer) 13 L Est GFR (Non-Af Amer) 11 L Calcium 8.3 L Albumin 3.4 L Critical Care Note - Critical Care Note Total time excluding time spent on procedures (mins): 55 Comments: 55 minutes of critical care time spent in direct contact evaluating and reevaluating the patient, treating symptoms, reviewing labs and studies and speaking with family and consultants excluding any procedures Discharge - Discharge Clinical Impression: Refusal of blood transfusions as patient is Denominational Acute renal failure Qualifiers: Acute renal failure type: unspecified Qualified Code(s): N17.9 - Acute kidney failure, unspecified Anemia Qualifiers: Anemia type: unspecified type Qualified Code(s): D64.9 - Anemia, unspecified Condition: Critical Disposition: ADMITTED INPATIENT Admitting Provider: Aron Unit Admitted: [facility]
[2016-12-12] MEDS ORDERED: NORMAL SALINE 1000 ML 1,000 ML IV PRN (06:50)
[2016-12-12 07:36] LABS: ALANINE AMINOTRANSFERASE 29 U/L (9-52); ALBUMIN 3.4 g/dL (3.5-5.0); ALKALINE PHOSPHATASE 110 U/L (38-126); ANION GAP 12 (5-19); ASPARTATE AMINO TRANSFERASE 19 U/L (14-36); BILIRUBIN,DIRECT 0.4 mg/dL (0.0-0.4); BILIRUBIN,TOTAL 0.4 mg/dL (0.2-1.3); BLOOD UREA NITROGEN 40 mg/dL (7-20); CALCIUM 8.3 mg/dL (8.4-10.2); CARBON DIOXIDE 23 mmol/L (22-30); CHLORIDE 100 mmol/L (98-107); CREATINE KINASE 36 U/L (30-135); GLUCOSE 97 mg/dL (75-110); POTASSIUM 5.5 mmol/L (3.6-5.0); SODIUM 134.6 mmol/L (137-145); TOTAL PROTEIN 6.6 g/dL (6.3-8.2)
--- NOTE | 2016-12-12 07:51 | RADIOLOGY REPORT (SQ) ---
EXAM DESCRIPTION: CHEST SINGLE VIEW COMPLETED DATE/TIME: 12/12/2016 7:34 am REASON FOR STUDY: shortness of breath COMPARISON: 12/01/2016. EXAM PARAMETERS: NUMBER OF VIEWS: One view. TECHNIQUE: Single frontal radiographic view of the chest acquired. RADIATION DOSE: NA LIMITATIONS: As below. FINDINGS: LUNGS AND PLEURA: Moderate mixed interstitial and airspace opacity. Moderate lung volume. Nonspecific hyperlucency of the left upper hemithorax. MEDIASTINUM AND HILAR STRUCTURES: No masses. Contour normal. HEART AND VASCULAR STRUCTURES: Moderate enlargement of the cardiac silhouette. BONES: No acute findings. HARDWARE: Right IJ central line tip near the cavoatrial junction, partially obscured. Rotated. OTHER: No other significant finding. IMPRESSION: No significant interval change. TECHNICAL DOCUMENTATION: JOB ID: [id number]
--- NOTE | 2016-12-12 07:53 | RADIOLOGY REPORT (SQ) ---
EXAM DESCRIPTION: CT HEAD WITHOUT COMPLETED DATE/TIME: 12/12/2016 7:37 am REASON FOR STUDY: fall COMPARISON: 06/08/2015 TECHNIQUE: Axial images acquired through the brain without intravenous contrast. Images reviewed wi th bone, brain and subdural windows. Images stored on PACS. All CT scanners at this facility use dose modulation, iterative reconstruction, and/or weight based d osing when appropriate to reduce radiation dose to as low as reasonably achievable (ALARA). [facility]: Dose Right [facility]: CareDose [facility]: Dose Right [facility]: Teradose 4D [facility]: Cymphonix RADIATION DOSE: 1,163 LIMITATIONS: Motion-streak artifact. FINDINGS: VENTRICLES: Normal size and contour. CEREBRUM: No masses. No hemorrhage. No midline shift. Normal peña/white matter differentiation. N o evidence for acute infarction. CEREBELLUM: No masses. No hemorrhage. No alteration of density. No evidence for acute infarction. EXTRAAXIAL SPACES: No fluid collections. No masses. ORBITS AND GLOBE: No intra- or extraconal masses. Normal contour of globe without masses. CALVARIUM: No fracture. PARANASAL SINUSES: No fluid or mucosal thickening. SOFT TISSUES: No mass or hematoma. OTHER: No other significant finding. IMPRESSION: No acute findings. Limitation. TECHNICAL DOCUMENTATION: JOB ID: [id number] Quality ID # [id number]: Final reports with documentation of one or more dose reduction techniques (e.g., Au tomated exposure control, adjustment of the mA and/or kV according to patient size, use of iterative reconstruction technique) 2010 [employer]- All Rights Reserved
[2016-12-12 08:08] LABS: HGB HCT DIFFERENCE -1.8; MEAN CORPUSCULAR HEMOGLOBIN 23.3 pg (27.0-33.4); MEAN CORPUSCULAR HGB CONC 29.3 g/dL (32.0-36.0); MEAN CORPUSCULAR VOLUME 80 fl (80-97); RED CELL DISTRIBUTION WIDTH 23.1 % (11.5-14.0); WHITE BLOOD COUNT 11.3 10^3/uL (4.0-10.5)
[2016-12-12 08:11] LABS: HEMOGLOBIN 4.7 g/dL (12.0-15.5)
[2016-12-12 08:12] LABS: HEMATOCRIT 15.9 % (36.0-47.0)
[2016-12-12 08:18] LABS: ANISOCYTOSIS 3+; BASOPHILS % (MANUAL) 0 % (0-2); CREATINE KINASE MB < 0.22 ng/mL (<4.55); EOSINOPHILS % (MANUAL) 2 % (0-6); LYMPHOCYTES % (MANUAL) 16 % (13-45); PLATELET CLUMPS PRESENT; ROULEAUX 3+; TOTAL CELLS COUNTED 100; TROPONIN I < 0.012 ng/mL
[2016-12-12 08:19] LABS: HYPOCHROMASIA 2+; OVALOCYTES 2+; POIKILOCYTOSIS 2+; POLYCHROMASIA 2+; SCHISTOCYTES SLIGHT; TARGET CELLS 1+
[2016-12-12] MEDS ORDERED: DEXTROSE 40% GEL 15 GM TUBE PO PRN (13:52)
[2016-12-12] MEDS ORDERED: DEXTROSE 50%-WATER SYRINGE 25 GM/50 ML DOSE IV PRN (13:52)
[2016-12-12] MEDS ORDERED: GLUCAGON,HUMAN RECOMB 1 MG INJ IM PRN (13:52)
[2016-12-12] MEDS ORDERED: DEXTROSE 50%-WATER SYRINGE 12.5 GM/25 ML DOSE IV PRN (13:52)
[2016-12-12] MEDS ORDERED: DEXTROSE 40% GEL 15 GM TUBE X 2 PO PRN (13:52)
[2016-12-12] MEDS: NORMAL SALINE 1000 ML 1,000 ML IV PRN (14:20)
[2016-12-12 17:56] LABS: APPEARANCE,URINE CLOUDY; BILIRUBIN,URINE NEGATIVE (NEGATIVE); GLUCOSE, URINE NEGATIVE (NEGATIVE); KETONES,URINE NEGATIVE (NEGATIVE); LEUKOCYTE ESTERASE,URINE TRACE (NEGATIVE); NITRITE,URINE NEGATIVE (NEGATIVE); PROTEIN,URINE 100 mg/dL (NEGATIVE); URINE SPECIFIC GRAVITY 1.011; UROBILINOGEN,URINE NEGATIVE mg/dL (<2.0)
--- NOTE | 2016-12-12 19:00 | PDOC H&P ---
History of Present Illness Admission Date/PCP: 12/12/16 08:30 Patient complains of: Generalized weakness History of Present Illness: SANTOS NAVARRO is a 56 year old female known to my practice brought to ED by EMS due to above complaints. Patient reported associated intermittent chest pain and chills. She denied any fever. Remain on long standing supplemental oxygen via nasal canula. Patient reported intermittent episodes of bleeding with voiding which she related to possible hemorrhoid. A witnessed voiding by nursing staff since admission did suggest possible genitourinary site of her bleeding. Patient reported associated lower abdominal pain. Her initial evaluation in the eD revealed hemoglobin at 54.7gm/dL a downward trend from 5.3gm/dL yesterday. Patient's extensive anemia workup and evaluation including bone marrow assessment was unrevealing of site of possible bleeding. Her evaluation in ED did revealed acute elevation in her serum creatinine and BUN. In view of her presentation and listed findings she was advised admission to the hospital. Patient claimed that she is not a Jehovah witness but her parents are and she was brought up in the [place]. In view of her significant anemia and continue intermittent bleeding, she agreed to PRBC transfusion at her who violation. I did expressed concern about her decision and she is willing to put her decision in writing along with signed consent for blood transfusion. In view of her urination associated bleeding there is concern for possible urinary tract as site of bleeding versus vaginal and uterus. She is agreeable to HOME THEATER EXPERIENCE [employer] and Nephrology consultation. Past Medical History Cardiac Medical History: Reports: Congestive Heart Failure, Coronary Artery Disease, Myocardial Infarction - 2 stents, Hyperlipidema, Hypertension, Peripheral Vascular Disease Denies: Heart Murmur Pulmonary Medical History: Reports: Asthma, Bronchitis, Chronic Obstructive Pulmonary Disease (COPD) - Oxygen use at home, inhaler., Sleep Apnea Denies: Pneumonia, Respiratory Failure, Tuberculosis Neurological Medical History: Reports: Migraine, Seizures - last seizure 2016 Endocrine Medical History: Reports: Diabetes Mellitus Type 2, Hyperthyroidism, Hypothyroidism Renal/ Medical History: Reports: End Stage Renal Disease - Stage IV GI Medical History: Reports: Gastroesophageal Reflux Disease Musculoskeltal Medical History: Reports: Arthritis, Fibromyalgia Psychiatric Medical History: Reports: Bipolar Disorder, Depression, Post Traumatic Stress Disorder Hematology: Reports: Anemia - procrit weekly Denies: Hemophilia, Sickle Cell Disease, Bleeding Tendencies Past Surgical History Past Surgical History: Reports: Cardiac Catheterization, Section - x2, Coronary Artery Bypass Graft, Coronary Stent - x2, Hysterectomy, Orthopedic Surgery - christine knee surgery, christine feet surgery, Tubal Ligation Denies: Amputation Social History Smoking Status: Never Smoker Frequency of Alcohol Use: None Hx Recreational Drug Use: No Drugs: None Hx Prescription Drug Abuse: No Family History Family History: None Parental Family History Reviewed: Yes Children Family History Reviewed: Yes Sibling(s) Family History Reviewed.: Yes Medication/Allergy Home Medications: Amitriptyline HCl [Elavil 150 mg Tablet] 1 tab PO DAILY 12/12/16 Aripiprazole [Abilify 30 MG Tablet] 15 mg PO BID 12/12/16 Benztropine Mesylate [Cogentin 1 mg Tablet] 1 tab PO BID 12/12/16 Budesonide/Formoterol Fumarate [Symbicort Hfa 160-4.5 Mcg Inhaler 6 gm] 2 puff IH Q12 12/12/16 Bupropion HCl [Bupropion HCl Sr] 150 mg PO QHS 12/12/16 Clopidogrel Bisulfate [Plavix 75 mg Tablet] 75 mg PO DAILY 12/12/16 Dexlansoprazole [Dexilant 60 mg Capsule] 60 mg PO DAILY 12/12/16 Diazepam [Valium 5 mg Tablet] 5 mg PO QHS 12/12/16 Duloxetine HCl [Cymbalta] 60 mg PO Q12 12/12/16 Ferrous Sulfate [Feosol 325 mg Tablet] 325 mg PO BID 12/12/16 Furosemide [Lasix] 40 mg PO DAILY 12/12/16 Gabapentin [Neurontin 300 mg Capsule] 300 mg PO Q8 12/12/16 Insulin Lispro [Humalog Kwikpen] 0 unit SQ .SLD SCALE 12/12/16 Levothyroxine Sodium [Synthroid 50 Mcg Tablet] 50 mcg PO DAILY 12/12/16 Liraglutide [Victoza 2-Armando] 1.8 mg SQ DAILY 12/12/16 Lubiprostone [Amitiza 24 Mcg Capsule] 24 mcg PO Q12 12/12/16 Magnesium Oxide [Mag-Ox 400 mg Tablet] 400 mg PO BID 12/12/16 Methocarbamol [Robaxin 500 mg Tablet] 500 mg PO TIDP PRN 12/12/16 Naloxegol Oxalate [Movantik 25 mg Tablet] 25 mg PO QAM 06/12/17 Nitroglycerin [Nitro-Dur 5 mg (0.2 mg/Hr) Transdermal Patch] 1 patch TD QAM 06/18 Olmesartan Medoxomil [Benicar] 20 mg PO DAILY 12/12/16 Omeprazole 40 mg PO Q12 12/12/16 Oxycodone HCl/Acetaminophen [Percocet 7.5-325 Mg Tablet] 1 each PO Q12 12/12/16 Saxagliptin HCl [Onglyza] 2.5 mg PO DAILY 12/12/16 Simvastatin [Zocor 20 mg Tablet] 20 mg PO QPM 12/12/16 Trazodone HCl [Desyrel] 300 mg PO QHS 12/12/16 Zolpidem Tartrate [Ambien] 20 mg PO QHS 12/12/16 Allergies/Adverse Reactions: cephalexin monohydrate [From Keflex] Allergy (Unknown, Verified 12/01/16 11:35) codeine [Codeine] Allergy (Unknown, Verified 12/01/16 11:35) dicyclomine HCl [From Bentyl] Allergy (Unknown, Verified 12/01/16 11:35) hydrocodone bitartrate [From Vicodin] Allergy (Unknown, Verified 12/01/16 11:35) meloxicam [From Mobic] Allergy (Unknown, Verified 12/01/16 11:35) meperidine HCl [From Demerol (PF)] Allergy (Unknown, Verified 12/01/16 11:35) morphine [Morphine] Allergy (Unknown, Verified 12/01/16 11:35) naproxen sodium [From Naprelan CR Dosepak] Allergy (Unknown, Verified 12/01/16 11:35) nitrofurantoin [From Macrobid] Allergy (Unknown, Verified 12/01/16 11:35) pantoprazole sodium [From Protonix] Allergy (Unknown, Verified 12/01/16 11:35) Penicillins Allergy (Unknown, Verified 12/01/16 11:35) Sulfa (Sulfonamide Antibiotics) Allergy (Unknown, Verified 12/01/16 11:35) tramadol HCl [From Ultracet] Allergy (Unknown, Verified 12/01/16 11:35) lamotrigine [From Lamictal] Allergy (Verified 12/01/16 11:35) rash Review of Systems Constitutional: PRESENT: chills, weakness. ABSENT: as per HPI, anorexia, fatigue, fever(s), headache(s), night sweats, weight gain, weight loss, other Eyes: PRESENT: visual disturbances - CAWG Ears: ABSENT: hearing changes Nose, Mouth, and Throat: ABSENT: as per HPI, headache(s), mouth pain, sore throat, vertigo, other Cardiovascular: PRESENT: chest pain - intermittent, dyspnea on exertion - on supplemental oxygen via nasal canula, edema - chronic related to her comorbidities Respiratory: PRESENT: dyspnea. ABSENT: as per HPI, cough, hemoptysis, sputum, other Gastrointestinal: PRESENT: abdominal pain - lower region, constipation - move bowel once per week. ABSENT: as per HPI, bloating, coffee ground emesis, diarrhea, dysphagia, heartburn, hematemesis, hematochezia, melena, nausea, vomiting, other Genitourinary: PRESENT: hematuria. ABSENT: as per HPI, difficulty urinating, dysuria, nocturia, other Integumentary: ABSENT: as per HPI, diaphoresis, erythema, lesions, pruritus, rash, wounds, other Neurological: ABSENT: abnormal gait, abnormal speech, confusion, dizziness, focal weakness, syncope Psychiatric: ABSENT: anxiety, depression, homidical ideation, suicidal ideation Endocrine: ABSENT: cold intolerance, heat intolerance, menstrual abnormalities, polydipsia, polyuria Hematologic/Lymphatic: PRESENT: easy bleeding - intermittently with voiding. Allergic/Immunologic: ABSENT: as per HPI, seasonal rhinorrhea, other Physical Exam Vital Signs: Temp Pulse Resp BP Pulse Ox 97.7 F 70 19 145/117 H 100 12/12/16 15:48 12/12/16 15:48 12/12/16 15:48 12/12/16 15:48 12/12/16 15:48 Intake & Output 12/11/16 12/12/16 12/13/16 06:59 06:59 06:59 Intake Total 355 Balance 355 Weight 156.8 kg General appearance: PRESENT: mild distress - on supplemental oxygen at 4L/min, morbidly obese Eye exam: PRESENT: conjunctiva pale, EOMI, PERRLA. ABSENT: conjunctival injection, conjunctiva pink, nystagmus, periorbital swelling, scleral icterus, other Ear exam: PRESENT: normal external ear exam Mouth exam: PRESENT: moist, tongue midline Teeth exam: ABSENT: dental caries, dental tenderness, edentulous, poor dentation , other Throat exam: ABSENT: post pharyngeal erythema, tonsillar erythema, tonsillar exudate, tonsillogmegaly, other Neck exam: PRESENT: full ROM. ABSENT: carotid bruit, JVD, lymphadenopathy, thyromegaly Respiratory exam: PRESENT: clear to auscultation christine, rhonchi - end expiratory phase, wheezes - end expiratory phase Cardiovascular exam: PRESENT: RRR. ABSENT: diastolic murmur, rubs, systolic murmur Vascular exam: PRESENT: normal capillary refill, pallor GI/Abdominal exam: PRESENT: normal bowel sounds, soft, tenderness - equivocal suprapubic region tenderness to palaption. ABSENT: distended, guarding, mass, organolmegaly, rebound Rectal exam: PRESENT: deferred Extremities exam: PRESENT: pedal edema - chronic with skin stasis changes. Musculoskeletal exam: PRESENT: ambulatory, deformity - related to arthritis Neurological exam: PRESENT: alert, awake, oriented to person, oriented to place , oriented to time, oriented to situation, CN II-XII grossly intact. ABSENT: motor sensory deficit Psychiatric exam: PRESENT: appropriate affect, normal mood. ABSENT: homicidal ideation, suicidal ideation Results Laboratory Results: 12/12/16 17:25 Urine Color RED Urine Appearance CLOUDY Urine pH 5.0 Ur Specific [place] 1.011 Urine Protein 100 H Urine Glucose (UA) NEGATIVE Urine Ketones NEGATIVE Urine Blood LARGE H Urine Nitrite NEGATIVE Ur Leukocyte Esterase TRACE H Urine WBC (Auto) 27 Urine RBC (Auto) >182 Impressions: Chest X-Ray 12/12/16 05:21 IMPRESSION: No significant interval change. Head CT 12/12/16 06:51 IMPRESSION: No acute findings. Limitation. Assessment & Plan - Diagnosis (1) [id number] renal failure Qualifiers: Acute renal failure type: unspecified Chronic kidney disease stage: stage 5, not on chronic dialysis Qualified Code(s): N17.9 - Acute kidney failure, unspecified; N18.5 - Chronic kidney disease, stage 5 Is this a current diagnosis for this admission?: YesPlan: See admitting physician orders. patient will receive gentle rehydration with N/ S. I will request nephrology consultation with Dr Son Garcia for input regarding her acute renal failure. (2) Anemia associated with acute blood loss Is this a current diagnosis for this admission?: YesPlan: See admitting physician orders. Patient changed her mind regarding her Jehovah Witness and moravian limitation on blood and blood product transfusion. she will be transfused 3 units of PRBC. Follow up on post transfusion CBC. (3) COPD mixed type Is this a current diagnosis for this admission?: YesPlan: See admitting physician orders. (4) HTN (hypertension) Qualifiers: Hypertension type: essential hypertension Qualified Code(s): I10 - Essential (primary) hypertension Is this a current diagnosis for this admission?: YesPlan: See admitting physician orders. 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 (6) PTSD (post-traumatic stress disorder) Is this a current diagnosis for this admission?: YesPlan: See admitting physician orders. (7) Bipolar 1 disorder, depressed Is this a current diagnosis for this admission?: YesPlan: See admitting physician orders. - Time Time Spent: 50 to 70 Minutes Medications reviewed and adjusted accordingly: Yes Anticipated discharge: Home with Homehealth Within: Other - Inpatient Certification Based on my medical assessment, after consideration of the patient's comorbidities, presenting symptoms, or acuity I expect that the services needed warrant INPATIENT care.: Yes I certify that my determination is in accordance with my understanding of Medicare's requirements for reasonable and necessary INPATIENT services [42 CFR 412.3e].: Yes Medical Necessity: Need Close Monitoring Due to Risk of Patient Decompensation, Need For IV Fluids, Need For Continuous Telemetry Monitoring, Risk of Complication if Not Cared For in Hospital Post Hospital Care: D/C Senior Economist Documentation - Plan Summary Plan Summary: See admitting physician orders.
[2016-12-12] MEDS ORDERED: NORMAL SALINE 250 ML IV PRN ×2 (19:06)
[2016-12-12] MEDS ORDERED: ZOLPIDEM TARTRATE 20 MG PO SCH (22:00)
[2016-12-12] MEDS ORDERED: (PENDING PHARMACY ID) (Trazodone Hcl [Desyrel] 300 MG) PO SCH (22:00)
[2016-12-12] MEDS ORDERED: (PENDING PHARMACY ID) (Oxycodone Hcl/Acetaminophen [Percocet 7.5-325 Mg Tablet] 1 EACH) PO SCH (22:00)
[2016-12-12 22:19] LABS: PARTIAL THROMBOPLASTIN TIME 43.2 SEC (23.5-35.8)
[2016-12-12 22:23] LABS: CREATININE RESULT 3.35 mg/dL (0.52-1.25)
[2016-12-12 22:32] LABS: APPEARANCE,URINE SLIGHTLY-CLOUDY; BILIRUBIN,URINE NEGATIVE (NEGATIVE); GLUCOSE, URINE NEGATIVE (NEGATIVE); KETONES,URINE NEGATIVE (NEGATIVE); LEUKOCYTE ESTERASE,URINE NEGATIVE (NEGATIVE); NITRITE,URINE NEGATIVE (NEGATIVE); PROTEIN,URINE NEGATIVE (NEGATIVE); URINE SPECIFIC GRAVITY 1.008; UROBILINOGEN,URINE NEGATIVE mg/dL (<2.0)
[2016-12-12 22:48] LABS: HEMATOCRIT 16.7 % (36.0-47.0); HGB HCT DIFFERENCE -1.7; MEAN CORPUSCULAR HEMOGLOBIN 23.6 pg (27.0-33.4); MEAN CORPUSCULAR HGB CONC 29.6 g/dL (32.0-36.0); MEAN CORPUSCULAR VOLUME 80 fl (80-97); RED BLOOD COUNT 2.11 10^6/uL (3.72-5.28); RED CELL DISTRIBUTION WIDTH 23.9 % (11.5-14.0); WHITE BLOOD COUNT 8.4 10^3/uL (4.0-10.5)
[2016-12-12] MEDS: GABAPENTIN 300 MG CAPSULE PO SCH (23:14)
[2016-12-12] MEDS: TRAZODONE HCL 50 MG TABLET PO SCH (23:15)
[2016-12-12] MEDS: BUPROPION HCL 75 MG TABLET PO SCH (23:16)
[2016-12-12] MEDS: ARIPIPRAZOLE 5 MG TABLET PO SCH (23:16)
[2016-12-12] MEDS: DULOXETINE HCL 30 MG CAPSULE.DR PO SCH (23:17)
[2016-12-12] MEDS: DIAZEPAM 5 MG TABLET PO SCH (23:18)
[2016-12-12] MEDS: OXYCODONE HCL IR 5 MG TABLET PO SCH (23:26)
[2016-12-12] MEDS: ZOLPIDEM TARTRATE 5 MG TABLET PO SCH (23:26)
[2016-12-12] MEDS: BUDESONIDE/FORMOTEROL 160-4.5 MCG 60 PUFF/6 GM MDI IH SCH (23:26)
[2016-12-12] MEDS: OXYCODONE-ACETAMINOPHEN 5-325 MG TABLET PO SCH (23:26)
[2016-12-13] MEDS: INSULIN LISPRO 100 UNIT/ML 3 ML VIAL SUBCUT PRN ×3 (00:06→19:27)
--- NOTE | 2016-12-13 04:32 | PDOC CONSULTATION ---
Consultation Consult Date: 12/12/16 Attending physician:: JASSON MARTINI Consult reason:: Anemia unknown cause History of Present Illness Admission Date/PCP: 12/12/16 19:00 Patient complains of: bleeding possibly from rectum, generalized weakness History of Present Illness: SANTOS NAVARRO is a 56 yo very pleasant female who presented today with generalized weakness and noted to have anemia. She is admitted to evaluate the cause of her bleeding and for transfusion. She reports that she had a hysterectomy ( total - reports uterus/cvx, bilateral ovaries removed due to heavy menses in 2003). She also reports that she had EGD/Colonoscopy after her hysterectomy due to rectal bleeding and was told she had Ulcers (she thinks of stomach) and large hemorrhoids which were banded (she reports band came off). She reports that over the last 7 months she has noted bleeding when she wipes and can be bright red to coffee ground in appearance. No emesis. She has been thinking that it is coming from her rectum so she just waited but had been becoming increasingly weak and that brought her in today. Per the RN caring for her there was a suspicion that she was having bleeding from the urethra. Past Medical History Menses: 2003 Gynecological Infection: No Baby 1 Delivery: : Low Cervical, Transverse Baby 2 Delivery: : Low Cervical, Transverse Medical History: Other Cardiac Medical History: Reports: Congestive Heart Failure, Coronary Artery Disease, Myocardial Infarction - 2 stents, Hyperlipidema, Hypertension, Peripheral Vascular Disease Denies: Heart Murmur Pulmonary Medical History: Reports: Asthma, Bronchitis, Chronic Obstructive Pulmonary Disease (COPD) - Oxygen use at home, inhaler., Sleep Apnea Denies: Pneumonia, Respiratory Failure, Tuberculosis Neurological Medical History: Reports: Migraine, Seizures - last seizure 2015 Endocrine Medical History: Reports: Diabetes Mellitus Type 2, Hyperthyroidism, Hypothyroidism Renal/ Medical History: Reports: End Stage Renal Disease - Stage IV Malignancy Medical History: Reports: None GI Medical History: Reports: Gastroesophageal Reflux Disease Musculoskeltal Medical History: Reports: Arthritis, Fibromyalgia Psychiatric Medical History: Reports: Bipolar Disorder, Depression, Post Traumatic Stress Disorder Social History Information Source: Patient Smoking Status: Never Smoker Frequency of Alcohol Use: None Hx Recreational Drug Use: No Drugs: None Hx Prescription Drug Abuse: No Family History Family History: None Parental Family History Reviewed: No Children Family History Reviewed: NA Sibling(s) Family History Reviewed.: NA Medication/Allergy Home Medications: Amitriptyline HCl [Elavil 150 mg Tablet] 1 tab PO DAILY 12/12/16 Aripiprazole [Abilify 30 MG Tablet] 15 mg PO BID 12/12/16 Benztropine Mesylate [Cogentin 1 mg Tablet] 1 tab PO BID 12/12/16 Budesonide/Formoterol Fumarate [Symbicort Hfa 160-4.5 Mcg Inhaler 6 gm] 2 puff IH Q12 12/12/16 Bupropion HCl [Bupropion HCl Sr] 150 mg PO QHS 12/12/16 Clopidogrel Bisulfate [Plavix 75 mg Tablet] 75 mg PO DAILY 12/12/16 Dexlansoprazole [Dexilant 60 mg Capsule] 60 mg PO DAILY 12/12/16 Diazepam [Valium 5 mg Tablet] 5 mg PO QHS 12/12/16 Duloxetine HCl [Cymbalta] 60 mg PO Q12 12/12/16 Ferrous Sulfate [Feosol 325 mg Tablet] 325 mg PO BID 12/12/16 Furosemide [Lasix] 40 mg PO DAILY 12/12/16 Gabapentin [Neurontin 300 mg Capsule] 300 mg PO Q8 12/12/16 Insulin Lispro [Humalog Kwikpen] 0 unit SQ .SLD SCALE 12/12/16 Levothyroxine Sodium [Synthroid 50 Mcg Tablet] 50 mcg PO DAILY 12/12/16 Liraglutide [Victoza 2-Armando] 1.8 mg SQ DAILY 12/12/16 Lubiprostone [Amitiza 24 Mcg Capsule] 24 mcg PO Q12 12/12/16 Magnesium Oxide [Mag-Ox 400 mg Tablet] 400 mg PO BID 12/12/16 Methocarbamol [Robaxin 500 mg Tablet] 500 mg PO TIDP PRN 12/12/16 Naloxegol Oxalate [Movantik 25 mg Tablet] 25 mg PO QAM 12/12/16 Nitroglycerin [Nitro-Dur 5 mg (0.2 mg/Hr) Transdermal Patch] 1 patch TD QAM 06/18 Olmesartan Medoxomil [Benicar] 20 mg PO DAILY 12/12/16 Omeprazole 40 mg PO Q12 12/12/16 Oxycodone HCl/Acetaminophen [Percocet 7.5-325 Mg Tablet] 1 each PO Q12 12/12/16 Saxagliptin HCl [Onglyza] 2.5 mg PO DAILY 12/12/16 Simvastatin [Zocor 20 mg Tablet] 20 mg PO QPM 12/12/16 Trazodone HCl [Desyrel] 300 mg PO QHS 12/12/16 Zolpidem Tartrate [Ambien] 20 mg PO QHS 12/12/16 Allergies/Adverse Reactions: cephalexin monohydrate [From Keflex] Allergy (Unknown, Verified 12/01/16 11:35) codeine [Codeine] Allergy (Unknown, Verified 12/01/16 11:35) dicyclomine HCl [From Bentyl] Allergy (Unknown, Verified 12/01/16 11:35) hydrocodone bitartrate [From Vicodin] Allergy (Unknown, Verified 12/01/16 11:35) meloxicam [From Mobic] Allergy (Unknown, Verified 12/01/16 11:35) meperidine HCl [From Demerol (PF)] Allergy (Unknown, Verified 12/01/16 11:35) morphine [Morphine] Allergy (Unknown, Verified 12/01/16 11:35) naproxen sodium [From Naprelan CR Dosepak] Allergy (Unknown, Verified 12/01/16 11:35) nitrofurantoin [From Macrobid] Allergy (Unknown, Verified 12/01/16 11:35) pantoprazole sodium [From Protonix] Allergy (Unknown, Verified 12/01/16 11:35) Penicillins Allergy (Unknown, Verified 12/01/16 11:35) Sulfa (Sulfonamide Antibiotics) Allergy (Unknown, Verified 12/01/16 11:35) tramadol HCl [From Ultracet] Allergy (Unknown, Verified 12/01/16 11:35) lamotrigine [From Lamictal] Allergy (Verified 12/01/16 11:35) rash Review of Systems Constitutional: PRESENT: fatigue, weakness. ABSENT: fever(s) Genitourinary: PRESENT: as per HPI, hematuria Musculoskeletal: PRESENT: back pain Psychiatric: ABSENT: anxiety, depression, homidical ideation, suicidal ideation Endocrine: ABSENT: cold intolerance, heat intolerance, polydipsia, polyuria Hematologic/Lymphatic: ABSENT: easy bleeding, easy bruising Physical Exam - Physical Exam Vital Signs: Temp Pulse Resp BP Pulse Ox 97.8 F 112 H 20 131/58 H 100 12/12/16 21:19 12/12/16 21:19 12/12/16 21:19 12/12/16 21:19 12/12/16 21:19 General appearance: PRESENT: no acute distress, morbidly obese, well-developed, well-nourished Head exam: PRESENT: atraumatic, normocephalic Respiratory exam: PRESENT: rhonchi, wheezes Cardiovascular exam: PRESENT: RRR GI/Abdominal exam: PRESENT: distended, normal bowel sounds, soft. ABSENT: mass , Corbett's sign, rebound, tenderness Rectal exam: PRESENT: deferred Gentrourinary exam: PRESENT: other - urethra appears normal, sterile straight cath performed and no blood noted. SSE - vaginal cuff appears intact but very poor visualization, SVE unable to reach cuff but no defects noted. NO blood noted in speculum or on SVE. Extremities exam: ABSENT: calf tenderness Musculoskeletal exam: PRESENT: ambulatory Neurological exam: PRESENT: alert, awake, oriented to person, oriented to place , oriented to time, oriented to situation, CN II-XII grossly intact. ABSENT: motor sensory deficit Psychiatric exam: PRESENT: appropriate affect, normal mood. ABSENT: homicidal ideation, suicidal ideation Skin exam: PRESENT: abrasion, dry, rash - Gynecological Exam Labia: normal Urethra: normal Introitus: normal Perineum: normal Vagina: other - vaginal cuff appears intact Cervix: other - not present - not palpable Cervix: other - not present - not palpable Uterus: other - not present - not palpable Adhexa: other - not palpable Result Laboratory Results: 12/12/16 21:55 12/12/16 21:55 WBC Cancelled RBC Cancelled Hgb Cancelled Hct Cancelled MCV Cancelled MCH Cancelled MCHC Cancelled RDW Cancelled Plt Count Cancelled Impressions: Chest X-Ray 12/12/16 05:21 IMPRESSION: No significant interval change. Head CT 12/12/16 06:51 IMPRESSION: No acute findings. Limitation. Assessment & Plan - Diagnosis (1) Anemia Qualifiers: Anemia type: unspecified type Qualified Code(s): D64.9 - Anemia, unspecified Is this a current diagnosis for this admission?: YesPlan: unknown cause. No apparent vaginal bleeding in pt with history of hysterectomy , also straight cath performed and no e/o blood noted. Pelvic US ordered but pt unable to cooperate with exam and apparently pt will have to have US in the am when more techs are available. Would recommend pt be eval by GI to r/o GI source of bleeding. Would recommend f/u for exam in the office due to need for more thorough exam. - Time Time Spent: 50 to 70 Minutes Critical Time spent with patient: Less than 15 minutes Medications reviewed and adjusted accordingly: Yes Anticipated discharge: Home Within: within 48 hours - Inpatient Certification Based on my medical assessment, after consideration of the patient's comorbidities, presenting symptoms, or acuity I expect that the services needed warrant INPATIENT care.: Yes I certify that my determination is in accordance with my understanding of Medicare's requirements for reasonable and necessary INPATIENT services [42 CFR 412.3e].: Yes Medical Necessity: Significant Comorbidiites Make Outpatient Treatment Too Risky , Need Close Monitoring Due to Risk of Patient Decompensation Post Hospital Care: D/C Supervisor Data Processing Documentation - Plan Summary Plan Summary: REcommend GI consult/Gen Surg consult as there appears no obvious source of Vaginal bleeding - would recommend f/u in office for more thorough exam. Still need US to complete eval. Past Surgical History Past Surgical History: Reports: Cardiac Catheterization, Section - x2, Coronary Artery Bypass Graft, Coronary Stent - x2, Hysterectomy - - total ( reports uterus, cvx and bilateral ovaries removed), Orthopedic Surgery - christine knee surgery, christine feet surgery, Tubal Ligation Denies: Amputation
[2016-12-13] MEDS: GABAPENTIN 300 MG CAPSULE PO SCH ×3 (06:24→21:20)
[2016-12-13] MEDS: LANSOPRAZOLE 30 MG TAB.RAP.DR PO SCH (06:25)
[2016-12-13] MEDS: NITROGLYCERIN 5 MG (0.2 MG/HR) PATCH.TD24 TD SCH (09:00)
[2016-12-13] MEDS ORDERED: (PENDING PHARMACY ID) (Olmesartan Medoxomil [Benicar] 20 MG) PO SCH (10:00)
[2016-12-13] MEDS ORDERED: FERROUS SULFATE 325 MG TABLET PO SCH (10:00)
[2016-12-13] MEDS ORDERED: LANSOPRAZOLE 30 MG TAB.RAP.DR PO SCH ×2 (10:00)
[2016-12-13] MEDS ORDERED: (PENDING PHARMACY ID) (Liraglutide [Victoza 2-Pak] 1.8 MG) SQ SCH (10:00)
[2016-12-13] MEDS ORDERED: AMITRIPTYLINE HCL PO SCH (10:00)
[2016-12-13] MEDS ORDERED: (PENDING PHARMACY ID) (Aripiprazole [Abilify 30 Mg Tablet] 15 MG) PO SCH (10:00)
[2016-12-13] MEDS ORDERED: SITAGLIPTIN PHOSPHATE 25 MG TABLET PO SCH (10:00)
[2016-12-13] MEDS ORDERED: SAXAGLIPTIN HCL 2.5 MG PO SCH (10:00)
[2016-12-13] MEDS ORDERED: LOSARTAN POTASSIUM 25 MG TABLET PO SCH ×2 (10:00)
[2016-12-13] MEDS: ARIPIPRAZOLE 5 MG TABLET PO SCH ×2 (10:32→21:19)
[2016-12-13] MEDS: AMLODIPINE BESYLATE 5 MG TABLET PO SCH (10:32)
[2016-12-13] MEDS: AMITRIPTYLINE HCL 75 MG TABLET PO SCH (10:33)
[2016-12-13] MEDS: DULOXETINE HCL 30 MG CAPSULE.DR PO SCH ×2 (10:34→21:20)
[2016-12-13] MEDS: LEVOTHYROXINE SODIUM 0.05 MG TABLET PO SCH (10:34)
[2016-12-13] MEDS: OXYCODONE HCL IR 5 MG TABLET PO SCH ×2 (12:03→21:20)
[2016-12-13] MEDS: OXYCODONE-ACETAMINOPHEN 5-325 MG TABLET PO SCH ×2 (12:03→21:20)
--- NOTE | 2016-12-13 12:03 | PDOC CONSULTATION ---
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 Her creatinine was elevated at 4.3 and the potassium was 5.5 She gives a history of having intermittent episodic hematochezia going on for several months. She says she has had upper GI endoscopy and lower colonoscopy by Dr. Bashir recently and was found to be unremarkable but for hemorrhoids. She reports that over the last several months she has noted bleeding when she wipes. No emesis. She has been thinking that it is coming from her rectum so she just waited but had been becoming increasingly weak and that brought her in today. She complains of progressive orthostasis over the last couple of days which got worse yesterday.She also complains of generalized abdominal pains mostly localized in the right lower area. She was hemodynamically unstable on admission. Following her admission she was emergently transfused 3 units. Today she feels a whole lot better. Currently the nurse she had altered mental status when she came in but today she is more awake and responsive to questions.No history of being on any NSAIDs.Admits to poor intake over the last few days. She has shortness of breath even at rest and is currently is stable on nasal cannula. She denies any severe chest pains. No history of any fever chills. Past Medical History Cardiac Medical History: Reports: Coronary Artery Disease, Hyperlipidemia, Hypertension-primary, Myocardial Infarction - 2 stents, Peripheral Vascular Disease Denies: Heart Murmur Pulmonary Medical History: Reports: Asthma, Bronchitis, Chronic Obstructive Pulmonary Disease (COPD) - Oxygen use at home, inhaler., Sleep Apnea Denies: Pneumonia, Respiratory Failure, Tuberculosis Neurological Medical History: Reports: Migraine, Seizures - last seizure 2015 Endocrine Medical History: Reports: Diabetes Mellitus Type 2, Hyperthyroidism, Hypothyroidism Renal/ Medical History: Reports: Chronic Kidney Disease Stage III Denies: Benign Prostatic Hyperplasia Malignancy Medical History: Reports: None GI Medical History: Reports: Gastroesophageal Reflux Disease Musculoskeltal Medical History: Reports: Arthritis, Fibromyalgia, Rheumatoid Arthritis Denies: Systemic Lupus Erythematosus Psychiatric Medical History: Reports: Bipolar Disorder, Depression, Post Traumatic Stress Disorder Hematology Medical History: Reports Iron Deficiency Anemia - And follows with heme oncologist. Has periodic IV iron infusions in the past. Past Surgical History Past Surgical History: Reports: Cardiac Catheterization, Section - x2, Coronary Artery Bypass Graft, Coronary Stent - x2, Hysterectomy - - total ( reports uterus, cvx and bilateral ovaries removed), Orthopedic Surgery - christine knee surgery, christine feet surgery, Tubal Ligation Social History Smoking Status: Never Smoker Frequency of Alcohol Use: None Hx Recreational Drug Use: No Drugs: None Hx Prescription Drug Abuse: No Family History Parental Family History Reviewed: Yes - Negative for ESRD Children Family History Reviewed: No Sibling(s) Family History Reviewed.: No Medication/Allergy Home Medications: Amitriptyline HCl [Elavil 150 mg Tablet] 1 tab PO DAILY 12/12/16 Aripiprazole [Abilify 30 MG Tablet] 15 mg PO BID 12/12/16 Benztropine Mesylate [Cogentin 1 mg Tablet] 1 tab PO BID 12/12/16 Budesonide/Formoterol Fumarate [Symbicort Hfa 160-4.5 Mcg Inhaler 6 gm] 2 puff IH Q12 12/12/16 Bupropion HCl [Bupropion HCl Sr] 150 mg PO QHS 12/12/16 Clopidogrel Bisulfate [Plavix 75 mg Tablet] 75 mg PO DAILY 12/12/16 Dexlansoprazole [Dexilant 60 mg Capsule] 60 mg PO DAILY 12/12/16 Diazepam [Valium 5 mg Tablet] 5 mg PO QHS 12/12/16 Duloxetine HCl [Cymbalta] 60 mg PO Q12 12/12/16 Ferrous Sulfate [Feosol 325 mg Tablet] 325 mg PO BID 12/12/16 Furosemide [Lasix] 40 mg PO DAILY 12/12/16 Gabapentin [Neurontin 300 mg Capsule] 300 mg PO Q8 12/12/16 Insulin Lispro [Humalog Kwikpen] 0 unit SQ .SLD SCALE 12/12/16 Levothyroxine Sodium [Synthroid 50 Mcg Tablet] 50 mcg PO DAILY 12/12/16 Liraglutide [Victoza 2-Armando] 1.8 mg SQ DAILY 12/12/16 Lubiprostone [Amitiza 24 Mcg Capsule] 24 mcg PO Q12 12/12/16 Magnesium Oxide [Mag-Ox 400 mg Tablet] 400 mg PO BID 12/12/16 Methocarbamol [Robaxin 500 mg Tablet] 500 mg PO TIDP PRN 12/12/16 Naloxegol Oxalate [Movantik 25 mg Tablet] 25 mg PO QAM 12/12/16 Nitroglycerin [Nitro-Dur 5 mg (0.2 mg/Hr) Transdermal Patch] 1 patch TD QAM 06/18 Olmesartan Medoxomil [Benicar] 20 mg PO DAILY 12/12/16 Omeprazole 40 mg PO Q12 12/12/16 Oxycodone HCl/Acetaminophen [Percocet 7.5-325 Mg Tablet] 1 each PO Q12 12/12/16 Saxagliptin HCl [Onglyza] 2.5 mg PO DAILY 12/12/16 Simvastatin [Zocor 20 mg Tablet] 20 mg PO QPM 12/12/16 Trazodone HCl [Desyrel] 300 mg PO QHS 12/12/16 Zolpidem Tartrate [Ambien] 20 mg PO QHS 12/12/16 Allergies/Adverse Reactions: cephalexin monohydrate [From Keflex] Allergy (Unknown, Verified 12/01/16 11:35) codeine [Codeine] Allergy (Unknown, Verified 12/01/16 11:35) dicyclomine HCl [From Bentyl] Allergy (Unknown, Verified 12/01/16 11:35) hydrocodone bitartrate [From Vicodin] Allergy (Unknown, Verified 12/01/16 11:35) meloxicam [From Mobic] Allergy (Unknown, Verified 12/01/16 11:35) meperidine HCl [From Demerol (PF)] Allergy (Unknown, Verified 12/01/16 11:35) morphine [Morphine] Allergy (Unknown, Verified 12/01/16 11:35) naproxen sodium [From Naprelan CR Dosepak] Allergy (Unknown, Verified 12/01/16 11:35) nitrofurantoin [From Macrobid] Allergy (Unknown, Verified 12/01/16 11:35) pantoprazole sodium [From Protonix] Allergy (Unknown, Verified 12/01/16 11:35) Penicillins Allergy (Unknown, Verified 12/01/16 11:35) Sulfa (Sulfonamide Antibiotics) Allergy (Unknown, Verified 12/01/16 11:35) tramadol HCl [From Ultracet] Allergy (Unknown, Verified 12/01/16 11:35) lamotrigine [From Lamictal] Allergy (Verified 12/01/16 11:35) rash Review of Systems Constitutional: ABSENT: fever(s), headache(s), night sweats, weakness Eyes: ABSENT: visual disturbances Nose, Mouth, and Throat: ABSENT: mouth pain, sore throat Cardiovascular: PRESENT: dyspnea on exertion, edema Respiratory: PRESENT: dyspnea. ABSENT: hemoptysis Gastrointestinal: PRESENT: abdominal pain, bloating, hematochezia. ABSENT: coffee ground emesis, diarrhea, dysphagia, heartburn, hematemesis, nausea, vomiting Genitourinary: ABSENT: dysuria Neurological: PRESENT: confusion. ABSENT: abnormal speech, convulsions, focal weakness Physical Exam Vital Signs: Temp Pulse Resp BP Pulse Ox 97.7 F 91 20 129/61 H 99 12/13/16 08:00 12/13/16 09:00 12/13/16 08:00 12/13/16 09:00 12/13/16 09:00 Intake & Output 12/12/16 12/13/16 12/14/16 06:59 06:59 06:59 Intake Total 1400 300 Output Total 1060 Balance 340 300 General appearance: PRESENT: morbidly obese Eye exam: PRESENT: conjunctiva pale, EOMI, PERRLA. ABSENT: nystagmus, scleral icterus Ear exam: PRESENT: normal external ear exam Mouth exam: PRESENT: moist, neck supple Neck exam: ABSENT: lymphadenopathy, meningismus, tenderness, thyromegaly, tracheal deviation Respiratory exam: PRESENT: clear to auscultation christine, crackles, rhonchi Cardiovascular exam: PRESENT: +S1, +S2, systolic murmur GI/Abdominal exam: PRESENT: normal bowel sounds, soft, tenderness - Generalized. ABSENT: distended, guarding, organomegaly Extremities exam: PRESENT: +1 edema Neurological exam: PRESENT: awake, oriented to person, oriented to place Psychiatric exam: PRESENT: flat affect. ABSENT: agitated Skin exam: PRESENT: mottled - Venous stasis changes in both lower extremities. ABSENT: erythema, urticaria, vesicles Results Laboratory Results: 12/12/16 22:37 12/12/16 21:55 12/12/16 12/12/16 12/12/16 21:55 21:55 21:55 WBC Cancelled RBC Cancelled Hgb Cancelled Hct Cancelled MCV Cancelled MCH Cancelled MCHC Cancelled RDW Cancelled Plt Count Cancelled Creatinine 3.35 H Est GFR ( Amer) 17 L Est GFR (Non-Af Amer) 14 L Urine Color Urine Appearance Urine pH Ur Specific [place] Urine Protein Urine Glucose (UA) Urine Ketones Urine Blood Urine Nitrite Ur Leukocyte Esterase Urine WBC (Auto) Urine RBC (Auto) Blood Type O POSITIVE Antibody Screen NEGATIVE 12/12/16 12/12/16 22:10 22:37 WBC 8.4 RBC 2.11 L Hgb 5.0 L* Hct 16.7 L MCV 80 MCH 23.6 L MCHC 29.6 L RDW 23.9 H Plt Count 256 Creatinine Est GFR ( Amer) Est GFR (Non-Af Amer) Urine Color YELLOW Urine Appearance SLIGHTLY-CLOUDY Urine pH 5.0 Ur Specific [place] 1.008 Urine Protein NEGATIVE Urine Glucose (UA) NEGATIVE Urine Ketones NEGATIVE Urine Blood NEGATIVE Urine Nitrite NEGATIVE Ur Leukocyte Esterase NEGATIVE Urine WBC (Auto) 2 Urine RBC (Auto) 1 Blood Type Antibody Screen Impressions: Chest X-Ray 12/12/16 05:21 IMPRESSION: No significant interval change. Head CT 12/12/16 06:51 IMPRESSION: No acute findings. Limitation. Assessment & Plan - Diagnosis (1) Acute kidney injury Plan: Multifactorial. Patient had underlying CKD stage III with a base creatinine of around 1.1-1.5.However acute worsening he is more likely from ATN from her hypotension in the setting of acute anemia of blood loss. Agree with fluid and blood transfusions. We will order renal ultrasound to exclude any obstructive component. Avoid nephrotoxic drugs. No acute indications for renal replacements of the moment. Monitor potassium carefully. (2) Altered mental status Plan: The setting of hypoxia from her cor pulmonale/COPD and hemodynamic instability from acute blood loss anemia. Presently improving post transfusions. Monitor. (3) Bipolar 1 disorder, depressed Is this a current diagnosis for this admission?: YesPlan: Stable. (4) HTN (hypertension) Qualifiers: Hypertension type: essential hypertension Qualified Code(s): I10 - Essential (primary) hypertension Is this a current diagnosis for this admission?: YesPlan: Stable post transfusions. Monitor. (5) Anemia associated with acute blood loss Is this a current diagnosis for this admission?: YesPlan: Status post transfusions.Currently hemodynamically stable. Monitor following labs. Recommend surgical evaluation to assess the patient/ diagnose. Patient however does not show any acute abdomen. In light of recent upper and lower endoscopies one would think whether this is from severe hemorrhoidal bleed or that she has got underlying AV malformations. Patient says she had an extensive GI evaluation including video capsule endoscopy. (6) Chronic kidney disease Qualifiers: Chronic kidney disease stage: stage 3 (moderate) Qualified Code(s): N18.3 - Chronic kidney disease, stage 3 (moderate) Plan: Patient is got underlying CKD stage III with a base creatinine of 1.1- 1.5.Presently she is an acute decompensation from reasons mentioned outlined earlier.See how she responds to conservative measures. No acute indications for renal replacements. Continue to monitor closely. (7) Hyperkalemia Plan: Monitor. In the setting of acute kidney injury.See response to conservative measures and correction of acute injury.
[2016-12-13 12:14] LABS: PATH REVIEW PATHOLOGIST REVIEWED
[2016-12-13] MEDS: SITAGLIPTIN PHOSPHATE 25 MG TABLET PO SCH (12:18)
[2016-12-13] MEDS: BUDESONIDE/FORMOTEROL 160-4.5 MCG 60 PUFF/6 GM MDI IH SCH ×2 (12:19→21:20)
[2016-12-13] MEDS: BENZTROPINE MESYLATE 1 MG TABLET PO SCH ×2 (13:55→18:04)
[2016-12-13 14:52] LABS: ABSOLUTE EOSINOPHILS # (AUTO) 0.2 10^3/uL (0.0-0.6); ABSOLUTE LYMPHOCYTES (AUTO) 1.4 10^3/uL (0.5-4.7); ABSOLUTE MONOCYTES (AUTO) 0.5 10^3/uL (0.1-1.4)
[2016-12-13 14:59] LABS: ABSOLUTE NEUT (AUTO) 6.1 10^3/uL (1.7-8.2); BASOPHILS % (AUTO) 0.4 % (0-2); HEMATOCRIT 24.3 % (36.0-47.0); HGB HCT DIFFERENCE -1.8; MEAN CORPUSCULAR HEMOGLOBIN 24.2 pg (27.0-33.4); MEAN CORPUSCULAR VOLUME 78 fl (80-97); MONOCYTES % (AUTO) 6.2 % (3-13); RED BLOOD COUNT 3.12 10^6/uL (3.72-5.28); RED CELL DISTRIBUTION WIDTH 20.9 % (11.5-14.0); SEGMENTED NEUTROPHILS % (AUTO) 74.4 % (42-78); WHITE BLOOD COUNT 8.2 10^3/uL (4.0-10.5)
[2016-12-13 15:00] LABS: ALANINE AMINOTRANSFERASE 27 U/L (9-52); ALBUMIN 3.8 g/dL (3.5-5.0); ALKALINE PHOSPHATASE 126 U/L (38-126); ANION GAP 13 (5-19); ASPARTATE AMINO TRANSFERASE 20 U/L (14-36); BILIRUBIN,DIRECT 0.4 mg/dL (0.0-0.4); BILIRUBIN,TOTAL 0.4 mg/dL (0.2-1.3); BLOOD UREA NITROGEN 33 mg/dL (7-20); CALCIUM 8.8 mg/dL (8.4-10.2); CARBON DIOXIDE 24 mmol/L (22-30); CHLORIDE 102 mmol/L (98-107); CREATININE RESULT 2.59 mg/dL (0.52-1.25); GLUCOSE 175 mg/dL (75-110); POTASSIUM 5.2 mmol/L (3.6-5.0); SODIUM 139.3 mmol/L (137-145); TOTAL PROTEIN 7.3 g/dL (6.3-8.2)
[2016-12-13 15:02] LABS: HEMOGLOBIN 7.5 g/dL (12.0-15.5)
--- NOTE | 2016-12-13 17:39 | CONSULTATION REPORT E ---
Consultation Report NAME: SANTOS NAVARRO : 1960 AGE: 56Y DATE: 12/13/2016 319 A TO: JENA MAN M.D. FROM: JASSON MARTINI M.D. Requesting Physician REASON FOR CONSULTATION: Patient with anemia with possible bleeding from the rectum. HISTORY OF PRESENT ILLNESS: This is a 56-year-old female who has been complaining of some pain around the rectal area. She had a colonoscopy with polypectomy x4 in the cecal area and in the rectum in October of this year done by a systems operator on an outpatient basis. The patient, however, has been on Plavix for the past 3 years after she had a couple of coronary artery stents placed 3 years ago in [place]. She also claims she has a stent placed in the groin area. She has a history of schizophrenia, and she has a cousin with her who is helping out with the history. She was apparently seen by OB and examined this morning but apparent bleeding from vaginal area, but the fact that she had hysterectomy in the past for cervical dysplasia, he just wants to make sure there is no bleeding from the vaginal vault. He asked me to see the patient and possibly do a combined OB evaluation and sigmoidoscopy. The patient's hemoglobin, however, was 5 but had 3 units of blood. They just did a repeat hemoglobin of 7.5. I reviewed the records from the patient's GI for her upper endoscopy and lower endoscopy as well as the polypectomy. PAST MEDICAL HISTORY: History of schizophrenia. She was apparently hospitalized for this condition about 20 years ago and has been on a lot of medications. She had a coronary artery stent placed 3 years ago at [place] and also had a groin stent and has been on Plavix since then. REVIEW OF SYSTEMS: Complaining of rectal pain and discomfort. She apparently has constipation, and her last bowel movement was about a week ago. Denies any nausea or vomiting, no diarrhea. No dysuria. She, however, claimed that she has been having low blood count for the past several months. She also has a history of diabetes mellitus type 2, end-stage renal disease stage 3. History of asthma, bronchitis, and COPD. She uses oxygen at home and inhalers. History of sleep apnea. She has a history of hypertension and PVD. History of GERD and reports arthritis and fibromyalgia. History of PTSD and depression. PAST SURGICAL HISTORY: Cardiac catheterization. section x2. Coronary artery bypass graft and coronary artery stenting x2. Hysterectomy. Orthopedic Surgery. Bilateral knee surgery and bilateral foot surgery. Tubal ligation. SOCIAL HISTORY: Denies smoking but chews tobacco. Denies alcohol use or recreational drug use. FAMILY HISTORY: Non-contributory. HOME MEDICATIONS: She is on: 1. Plavix 75 mg daily. 2. Takes Elavil. 3. Abilify. 4. Cogentin. 5. Symbicort inhaler. 6. Bupropion. 7. Dexilant. 8. Valium. 9. Cymbalta. 10. Iron. 11. Lasix 40 mg daily since 12/12/2016. 12. Neurontin. 13. Humalog. 14. Synthroid. 15. Amitiza. 16. Robaxin. 17. Movantik. 18. Benicar. 19. Omeprazole. 20. Oxycodone. 21. Onglyza. 22. Simvastatin. 23. Trazodone. 24. Ambien 20 mg at bedtime. ALLERGIES: She has multiple allergies: 1. KEFLEX. 2. CODEINE. 3. BENTYL. 4. VICODIN. 5. MOBIC. 6. DEMEROL. 7. NAPROXEN. 8. MACROBID. 9. PROTONIX. 10. PENICILLIN BUT NOT DEFINITE. 11. SULFA. 12. TRAMADOL. 13. LAMICTAL. REVIEW OF SYSTEMS: CONSTITUTIONAL: History of chills and weakness. EYES: Some visual disturbances - CAWG. EARS: No hearing problems. EARS, NOSE AND THROAT: Negative. CARDIAC: Intermittent chest pain and dyspnea on exertion. RESPIRATORY: Complains of dyspnea. GASTROINTESTINAL: Lower abdominal pain and constipation. GENITOURINARY: Hematuria. NEUROLOGIC: No abnormal gait. INTEGUMENTARY: No diaphoresis or rash. PSYCHIATRIC: No anxiety or homicidal ideation. ENDOCRINE: No cold intolerance. HEMATOLOGIC/LYMPHATIC: There is easy bleeding and bruisability. Bleeding intermittently with voiding. ALLERGIC/IMMUNOLOGIC: Some rhinorrhea. PHYSICAL EXAMINATION: VITAL SIGNS: Temperature 97.7. Pulse of 70 per minute. Respiration 19 per minute. Blood pressure 145/117. Pulse oximetry of 100%. GENERAL: This is a 56-year-old quite obese female. She is about 5 feet 8 inches and weighs 120 kg. CARDIAC: Intermittent chest pains. GASTROINTESTINAL: Constipation and lower abdominal pain. GENITOURINARY: Hematuria. ALLERGIC/IMMUNOLOGIC: Absent as per HPI. HEMATOLOGIC/LYMPHATIC: Easy bleeding intermittently with hematuria. RECTAL EXAM: She has some external hemorrhoids but no active bleeding noted. Rectal exam: I did not palpate any lesion, but there is a small amount of blood clot on the examining finger. IMPRESSION: 1. Lower gastrointestinal bleeding possibly from the polypectomy sites since the patient has been on Plavix since, and this might be causing the bleeding. 2. Acute renal failure. 3. Anemia blood loss. 4. Chronic obstructive pulmonary disease. 5. Hypertension. 6. Diabetes mellitus type 2. 7. History of schizophrenia. PLAN: The plan is to do a combined HIV PREVENTION SPECIALIST and sigmoidoscopy tomorrow under anesthesia. Her hemoglobin right now is 7.5, and I ordered 2 more units of blood because Anesthesia is not comfortable giving her general with that kind of hemoglobin. We already stopped her Plavix starting today because she was admitted yesterday afternoon, and she takes her Plavix in the morning. I would also request for GI consultation for possible full colonoscopy. Continue to stop the Plavix and need be can be transfused with platelets to aid in stopping the bleeding. The bleeding is really from the polyps that were removed. I was asked to see the patient by Dr. Morgan, the [facility] [employer] [employer] physician. DICTATING PHYSICIAN: JENA MAN M.D. [id number] PHY#: [id number] ID: [id number] JOB#: [id number] ACCT: [id number] cc:JENA MAN M.D. >
[2016-12-13] MEDS: SIMVASTATIN 10 MG TABLET PO SCH (18:04)
--- NOTE | 2016-12-13 18:55 | PDOC PROGRESS REPORT ---
Subjective Progress Note for:: 12/13/16 Subjective:: Interval events and evaluation noted. Patient had 5 units of PRBC total transfused so far since admission. Her evaluation and chart reviewed did confirm [place] abdominal [place] [address] Pate and 3 colonoscopies in span of 05/2016 and 10/[address] Smith and Jennifer with findings including multiple excised polpys and internal hemorrhoid. There was reported attempt to repair hemorrhoid with banding approach but patient reported device slipped out. She denied any abdominal pain, nausea or vomiting. No fever or chills. There has been recurrence of bleeding with voiding. definite site remain a concern. Her ASSISTANT PLANT CONTROL OPERATOR evaluation did suggest blood clot in her rectal vault. She is schedule for pelvic and possible proctoscopy evaluation tomorrow. Her renal indices did show some improvement. Physical Exam Vital Signs: Temp Pulse Resp BP Pulse Ox 98.4 F 96 21 H 141/60 H 96 12/13/16 16:03 12/13/16 16:03 12/13/16 16:03 12/13/16 16:03 12/13/16 16:03 Intake & Output 12/12/16 12/13/16 12/14/16 06:59 06:59 06:59 Intake Total 1400 1295 Output Total 1060 1700 Balance 340 -405 Weight 156.8 kg General appearance: PRESENT: no acute distress, morbidly obese Head exam: PRESENT: atraumatic, normocephalic Eye exam: PRESENT: conjunctiva pale, EOMI, PERRLA Mouth exam: PRESENT: moist Respiratory exam: PRESENT: clear to auscultation christine Cardiovascular exam: PRESENT: RRR. ABSENT: diastolic murmur, rubs, systolic murmur GI/Abdominal exam: PRESENT: normal bowel sounds, soft. ABSENT: distended, guarding, mass, organolmegaly, rebound, tenderness Rectal exam: PRESENT: deferred Gentrourinary exam: PRESENT: indwelling catheter Extremities exam: PRESENT: pedal edema Neurological exam: PRESENT: alert, awake, oriented to person, oriented to place , oriented to time, oriented to situation, CN II-XII grossly intact. ABSENT: motor sensory deficit Psychiatric exam: PRESENT: appropriate affect, normal mood. ABSENT: homicidal ideation, suicidal ideation Skin exam: PRESENT: dry, intact, warm. ABSENT: cyanosis, rash Results Laboratory Results: 12/13/16 14:33 12/13/16 14:33 12/12/16 12/12/16 12/12/16 21:55 21:55 21:55 WBC Cancelled RBC Cancelled Hgb Cancelled Hct Cancelled MCV Cancelled MCH Cancelled MCHC Cancelled RDW Cancelled Plt Count Cancelled Seg Neutrophils % Lymphocytes % Monocytes % Eosinophils % Basophils % Absolute Neutrophils Absolute Lymphocytes Absolute Monocytes Absolute Eosinophils Absolute Basophils Sodium Potassium Chloride Carbon Dioxide Anion Gap BUN Creatinine 3.35 H Est GFR ( Amer) 17 L Est GFR (Non-Af Amer) 14 L Glucose Calcium Total Bilirubin AST ALT Alkaline Phosphatase Total Protein Albumin Urine Color Urine Appearance Urine pH Ur Specific [place] Urine Protein Urine Glucose (UA) Urine Ketones Urine Blood Urine Nitrite Ur Leukocyte Esterase Urine WBC (Auto) Urine RBC (Auto) Blood Type O POSITIVE Antibody Screen NEGATIVE 12/12/16 12/12/16 12/13/16 22:10 22:37 14:33 WBC 8.4 8.2 RBC 2.11 L 3.12 L Hgb 5.0 L* 7.5 L D Hct 16.7 L 24.3 L MCV 80 78 L MCH 23.6 L 24.2 L MCHC 29.6 L 31.0 L RDW 23.9 H 20.9 H Plt Count 256 272 Seg Neutrophils % 74.4 Lymphocytes % 17.0 Monocytes % 6.2 Eosinophils % 2.0 Basophils % 0.4 Absolute Neutrophils 6.1 Absolute Lymphocytes 1.4 Absolute Monocytes 0.5 Absolute Eosinophils 0.2 Absolute Basophils 0.0 Sodium Potassium Chloride Carbon Dioxide Anion Gap BUN Creatinine Est GFR ( Amer) Est GFR (Non-Af Amer) Glucose Calcium Total Bilirubin AST ALT Alkaline Phosphatase Total Protein Albumin Urine Color YELLOW Urine Appearance SLIGHTLY-CLOUDY Urine pH 5.0 Ur Specific [place] 1.008 Urine Protein NEGATIVE Urine Glucose (UA) NEGATIVE Urine Ketones NEGATIVE Urine Blood NEGATIVE Urine Nitrite NEGATIVE Ur Leukocyte Esterase NEGATIVE Urine WBC (Auto) 2 Urine RBC (Auto) 1 Blood Type Antibody Screen 12/13/16 14:33 WBC RBC Hgb Hct MCV MCH MCHC RDW Plt Count Seg Neutrophils % Lymphocytes % Monocytes % Eosinophils % Basophils % Absolute Neutrophils Absolute Lymphocytes Absolute Monocytes Absolute Eosinophils Absolute Basophils Sodium 139.3 Potassium 5.2 H Chloride 102 Carbon Dioxide 24 Anion Gap 13 BUN 33 H Creatinine 2.59 H Est GFR ( Amer) 23 L Est GFR (Non-Af Amer) 19 L Glucose 175 H Calcium 8.8 Total Bilirubin 0.4 AST 20 ALT 27 Alkaline Phosphatase 126 Total Protein 7.3 Albumin 3.8 Urine Color Urine Appearance Urine pH Ur Specific [place] Urine Protein Urine Glucose (UA) Urine Ketones Urine Blood Urine Nitrite Ur Leukocyte Esterase Urine WBC (Auto) Urine RBC (Auto) Blood Type Antibody Screen Impressions: Chest X-Ray 12/12/16 05:21 IMPRESSION: No significant interval change. Head CT 12/12/16 06:51 IMPRESSION: No acute findings. Limitation. Assessment & Plan - Diagnosis (1) [id number] renal failure Qualifiers: Acute renal failure type: unspecified Chronic kidney disease stage: stage 5, not on chronic dialysis Qualified Code(s): N17.9 - Acute kidney failure, unspecified; N18.9 - Chronic kidney disease, unspecified Is this a current diagnosis for this admission?: YesPlan: Continue IV fluid support and avoid nephrotoxic medication or procedure as much as possible. Junior Business Analyst input appreciated. (2) Anemia associated with acute blood loss Is this a current diagnosis for this admission?: YesPlan: We will follow up on post transfusion CBC. She is schedule for further evaluation tomorrow with pelvic examination and proctoscopy under sedation. (3) COPD mixed type Is this a current diagnosis for this admission?: YesPlan: See attending physician orders. (4) HTN (hypertension) Qualifiers: Hypertension type: essential hypertension Qualified Code(s): I10 - Essential (primary) hypertension Is this a current diagnosis for this admission?: YesPlan: See attending physician orders. 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 (6) PTSD (post-traumatic stress disorder) Is this a current diagnosis for this admission?: YesPlan: See attending physician orders. (7) Bipolar 1 disorder, depressed Is this a current diagnosis for this admission?: YesPlan: See attending physician orders. - Time Time Spent with patient: 35 or more minutes - discussed and coordinate care with Dr Morgan, gyneacologist on the case. Medications reviewed and adjusted accordingly: Yes Anticipated discharge: Home with Homehealth Within: Other - Inpatient Certification Medical Necessity: Need Close Monitoring Due to Risk of Patient Decompensation, Need For IV Fluids, Need For Continuous Telemetry Monitoring, Risk of Complication if Not Cared For in Hospital Post Hospital Care: D/C Supervisor Dry Cell Assembly Documentation - Plan Summary Plan Summary: See attending physician orders.
[2016-12-13] MEDS: BUPROPION HCL 75 MG TABLET PO SCH (21:20)
[2016-12-13] MEDS: TRAZODONE HCL 50 MG TABLET PO SCH (21:20)
[2016-12-13] MEDS: DIAZEPAM 5 MG TABLET PO SCH (21:20)
[2016-12-13] MEDS: ZOLPIDEM TARTRATE 5 MG TABLET PO SCH (21:20)
--- NOTE | 2016-12-13 23:46 | RADIOLOGY REPORT (SQ) ---
EXAM DESCRIPTION: U/S NON OB PEL TV W/DOPPLER COMPLETED DATE/TIME: 12/13/2016 11:36 pm REASON FOR STUDY: possible vaginal bleeding, r/o hysterectomy COMPARISON: None. TECHNIQUE: Dynamic and static grayscale images acquired of the pelvis via transvaginal approach and recorded on PACS. Additional selected color Doppler and spectral images recorded. LIMITATIONS: None. FINDINGS: UTERUS: Status post hysterectomy RIGHT OVARY: Status post right oophorectomy. LEFT OVARY: Status post left oophorectomy FREE FLUID: None noted. OTHER: [place] catheter is identified in the bladder. IMPRESSION: No significant pelvic abnormalities were identified. TECHNICAL DOCUMENTATION: JOB ID: [id number] [employer]- All Rights Reserved
[2016-12-14] MEDS: NORMAL SALINE 1000 ML 1,000 ML IV PRN (03:14)
[2016-12-14 05:17] LABS: APPEARANCE,URINE SLIGHTLY-CLOUDY; BILIRUBIN,URINE NEGATIVE (NEGATIVE); GLUCOSE, URINE NEGATIVE (NEGATIVE); KETONES,URINE NEGATIVE (NEGATIVE); LEUKOCYTE ESTERASE,URINE SMALL (NEGATIVE); NITRITE,URINE NEGATIVE (NEGATIVE); PROTEIN,URINE NEGATIVE (NEGATIVE); URINE SPECIFIC GRAVITY 1.012; UROBILINOGEN,URINE NEGATIVE mg/dL (<2.0)
[2016-12-14] MEDS: LANSOPRAZOLE 30 MG TAB.RAP.DR PO SCH (05:31)
[2016-12-14] MEDS: GABAPENTIN 300 MG CAPSULE PO SCH ×3 (05:31→21:24)
[2016-12-14] MEDS ORDERED: HYDROMORPHONE HCL INJ/PF 2 MG/ML AMPULE ONE (06:53)
[2016-12-14] MEDS ORDERED: EPHEDRINE SULFATE INJ 50 MG/1 ML AMPULE ONE (06:54)
[2016-12-14] MEDS ORDERED: FENTANYL CITRATE INJ/PF 100 MCG/2 ML AMPUL ONE (06:54)
[2016-12-14] MEDS ORDERED: PROPOFOL INJ 200 MG/20 ML VIAL IV ONE (06:54)
[2016-12-14] MEDS ORDERED: MIDAZOLAM 2 MG/2 ML INJ ONE (06:54)
[2016-12-14 06:56] LABS: HEMATOCRIT 25.6 % (36.0-47.0); HEMOGLOBIN 8.1 g/dL (12.0-15.5); HGB HCT DIFFERENCE -1.3; MEAN CORPUSCULAR HEMOGLOBIN 25.5 pg (27.0-33.4); MEAN CORPUSCULAR HGB CONC 31.7 g/dL (32.0-36.0); MEAN CORPUSCULAR VOLUME 81 fl (80-97); RED BLOOD COUNT 3.18 10^6/uL (3.72-5.28); RED CELL DISTRIBUTION WIDTH 19.2 % (11.5-14.0); WHITE BLOOD COUNT 8.7 10^3/uL (4.0-10.5)
[2016-12-14] MEDS ORDERED: LIDOCAINE 1% INJ-PF (10 MG/ML) 30 ML SDV ONE (07:00)
[2016-12-14] MEDS ORDERED: ONDANSETRON HCL INJ/PF 4 MG/2 ML SDV ONE (07:00)
[2016-12-14 07:12] LABS: ANION GAP 11 (5-19); BLOOD UREA NITROGEN 32 mg/dL (7-20); CALCIUM 8.7 mg/dL (8.4-10.2); CARBON DIOXIDE 24 mmol/L (22-30); CHLORIDE 104 mmol/L (98-107); CREATININE RESULT 2.18 mg/dL (0.52-1.25); GLUCOSE 129 mg/dL (75-110); POTASSIUM 5.3 mmol/L (3.6-5.0); SODIUM 139.2 mmol/L (137-145)
[2016-12-14] MEDS: NITROGLYCERIN 5 MG (0.2 MG/HR) PATCH.TD24 TD SCH (09:13)
--- NOTE | 2016-12-14 09:43 | OPERATIVE REPORT E ---
Operative Report NAME: SANTOS NAVARRO : 1960 AGE: 56Y DATE OF SURGERY: 12/14/2016 ROOM: 319 PREOPERATIVE DIAGNOSIS: Bleeding either from vagina or rectum. POSTOPERATIVE DIAGNOSIS: Bleeding from the rectum. OPERATION: Exam under anesthesia and proctoscopy. SURGEON: TRE LINDO M.D. also Dr. Walter for the proctoscopy. ESTIMATED BLOOD LOSS: Minimal. COMPLICATIONS: None. ANESTHESIA: Sedation. PROCEDURE: The patient was taken to the OR, placed in the lithotomy position. This allowed exam of the vagina. There are no vaginal lesions. The vaginal cuff is intact. Cytology samples were performed. Next, the proctoscopy was done to [address] Walter was able to identify raw area that was not actively bleeding at the colon. It appears her bleeding is likely from her previous colon biopsies, possibly because of the anticoagulant effects of the Plavix. At this point, the procedure was stopped. She was placed back in supine position, taken to recovery room in stable condition. DICTATING PHYSICIAN: TRE LINDO M.D. [id number] PHY#: [id number] ID: [id number] JOB#: [id number] ACCT: [id number] cc:TRE LINDO M.D. > DEAN
--- NOTE | 2016-12-14 11:18 | OPERATIVE REPORT E ---
Operative Report NAME: SANTOS NAVARRO : 1960 AGE: 56Y DATE OF SURGERY: 12/14/2016 ROOM: 319 PREOPERATIVE DIAGNOSIS: Bleeding from polypectomy site. POSTOPERATIVE DIAGNOSIS: Bleeding from polypectomy site. OPERATION: Rigid sigmoidoscopy. SURGEON: JENA MAN M.D. INDICATION: This is a 56-year-old female who had a colonoscopy done 10/12/2016. She had four polyps removed at that time. However, patient apparently has been on Plavix during that time, which she continued until the day of admission on 12/12/2016. Her hemoglobin noted to come down to about 4.7 on admission. Her coags are normal, but her last dose of Plavix was on the day of admission. She was transfused with a hemoglobin increased to about 7.5 after three units. From bedside examination, she had some blood and clots around the area of the rectum. DIRECTOR DATA PROCESSING examined her and wanted to do an examination under anesthesia to make sure there is no bleeding from the previous hysterectomy site at vaginal vault. Dr. Morgan did that. PROCEDURE: After Dr. Morgan did an examination of the vagina and found no areas of bleeding, I then did a rigid sigmoidoscopy up to a level of 20 cm. There were a few clots mixed with stool, but on further pulling out the sigmoidoscope there was an area of likely previous polypectomy site that appears to be raw but no celina bleeding at this time. This was seen at the level of 12 cm on the scope. Since there is no active bleeding at this time, no further procedure was performed. Procedure was then terminated. The plan is to continue to hold the Plavix since it is already three years since he had a coronary stent placed. We will monitor her hemoglobin and hematocrit and if needed, she will have a full colonoscopy Monday the . DICTATING PHYSICIAN: JENA MAN M.D. [id number] PHY#: [id number] ID: [id number] JOB#: [id number] ACCT: [id number] cc:JENA MAN M.D. >
[2016-12-14] MEDS: OXYCODONE-ACETAMINOPHEN 5-325 MG TABLET PO SCH ×2 (11:26→21:27)
[2016-12-14] MEDS: AMITRIPTYLINE HCL 75 MG TABLET PO SCH (11:26)
[2016-12-14] MEDS: BENZTROPINE MESYLATE 1 MG TABLET PO SCH ×2 (11:26→17:26)
[2016-12-14] MEDS: BUDESONIDE/FORMOTEROL 160-4.5 MCG 60 PUFF/6 GM MDI IH SCH ×2 (11:26→21:24)
[2016-12-14] MEDS: LEVOTHYROXINE SODIUM 0.05 MG TABLET PO SCH (11:26)
[2016-12-14] MEDS: OXYCODONE HCL IR 5 MG TABLET PO SCH ×2 (11:26→21:27)
[2016-12-14] MEDS: ARIPIPRAZOLE 5 MG TABLET PO SCH ×2 (11:26→21:23)
[2016-12-14] MEDS: DULOXETINE HCL 30 MG CAPSULE.DR PO SCH ×2 (11:26→21:23)
[2016-12-14] MEDS: SITAGLIPTIN PHOSPHATE 25 MG TABLET PO SCH (11:26)
[2016-12-14] MEDS: AMLODIPINE BESYLATE 5 MG TABLET PO SCH (11:26)
--- NOTE | 2016-12-14 16:21 | PDOC PROGRESS REPORT ---
Subjective Progress Note for:: 12/14/16 Subjective:: Patient was seen in the hospital today. She looks and feels a lot better. She is stable posttransfusion.Is gone on to have a examination under anesthesia of vaginal vault along with a rigid sigmoidoscopy. The vaginal vault examination was unremarkable. However the rigid sigmoidoscopy found raw area where she had a polypectomy done couple of months ago which was still raw.Apparently she is scheduled for a full colonoscopy in the next few days. Patient however denies any history of abdominal pains no estimate chest pain shortness of breath nausea nausea vomiting. Labs were reviewed with the patient shows a stable hemoglobin and improving renal functions. Physical Exam Vital Signs: Temp Pulse Resp BP Pulse Ox 97.4 F 100 19 131/65 H 100 12/14/16 12:11 12/14/16 14:00 12/14/16 12:11 12/14/16 12:11 12/14/16 12:11 Intake & Output 12/13/16 12/14/16 12/15/16 06:59 06:59 06:59 Intake Total 1400 4178 1050 Output Total 1060 4490 300 Balance 340 -312 750 Weight 158.9 kg General appearance: PRESENT: no acute distress Respiratory exam: PRESENT: clear to auscultation christine. ABSENT: crackles, rhonchi Cardiovascular exam: PRESENT: +S1, +S2, systolic murmur GI/Abdominal exam: PRESENT: normal bowel sounds, soft. ABSENT: distended, guarding, organomegaly Neurological exam: PRESENT: awake, oriented to person, oriented to place, oriented to time Results Laboratory Results: 12/14/16 06:25 12/14/16 06:25 12/12/16 12/14/16 12/14/16 21:55 04:40 06:25 WBC RBC Hgb Hct MCV MCH MCHC RDW Plt Count Sodium 139.2 Potassium 5.3 H Chloride 104 Carbon Dioxide 24 Anion Gap 11 BUN 32 H Creatinine 2.18 H Est GFR ( Amer) 28 L Est GFR (Non-Af Amer) 23 L Glucose 129 H Calcium 8.7 Urine Color YELLOW Urine Appearance SLIGHTLY-CLOUDY Urine pH 5.0 Ur Specific [place] 1.012 Urine Protein NEGATIVE Urine Glucose (UA) NEGATIVE Urine Ketones NEGATIVE Urine Blood MODERATE H Urine Nitrite NEGATIVE Ur Leukocyte Esterase SMALL H Urine WBC (Auto) 21 Urine RBC (Auto) 116 Blood Type O POSITIVE Antibody Screen NEGATIVE 12/14/16 06:25 WBC 8.7 RBC 3.18 L Hgb 8.1 L Hct 25.6 L MCV 81 MCH 25.5 L MCHC 31.7 L RDW 19.2 H Plt Count 246 Sodium Potassium Chloride Carbon Dioxide Anion Gap BUN Creatinine Est GFR ( Amer) Est GFR (Non-Af Amer) Glucose Calcium Urine Color Urine Appearance Urine pH Ur Specific [place] Urine Protein Urine Glucose (UA) Urine Ketones Urine Blood Urine Nitrite Ur Leukocyte Esterase Urine WBC (Auto) Urine RBC (Auto) Blood Type Antibody Screen Impressions: Chest X-Ray 12/12/16 05:21 IMPRESSION: No significant interval change. Head CT 12/12/16 06:51 IMPRESSION: No acute findings. Limitation. Transvaginal US 12/13/16 00:00 IMPRESSION: No significant pelvic abnormalities were identified. Assessment & Plan - Diagnosis (1) Acute kidney injury Plan: Improving. Continue present management (3) Bipolar 1 disorder, depressed Is this a current diagnosis for this admission?: YesPlan: Stable (4) HTN (hypertension) Qualifiers: Hypertension type: essential hypertension Qualified Code(s): I10 - Essential (primary) hypertension Is this a current diagnosis for this admission?: YesPlan: Stable. (5) Anemia associated with acute blood loss Is this a current diagnosis for this admission?: YesPlan: Stable posttransfusion. Off all anticoagulants. The site of the lower rectal bleed is deemed to be from a previous polypectomy done in October of this year. This was found on rigid sigmoidoscopy examination done yesterday and the site was approximately 12 cm away from the rectum.She is scheduled for a colonoscopy soon. (6) Chronic kidney disease Qualifiers: Chronic kidney disease stage: stage 3 (moderate) Qualified Code(s): N18.3 - Chronic kidney disease, stage 3 (moderate) Plan: Underlying CKD stage III with acute kidney injury which is improving. (7) Hyperkalemia Plan: Resolved. Monitor
[2016-12-14] MEDS: INSULIN LISPRO 100 UNIT/ML 3 ML VIAL SUBCUT PRN ×2 (17:24→22:00)
[2016-12-14] MEDS: SIMVASTATIN 10 MG TABLET PO SCH (17:25)
--- NOTE | 2016-12-14 18:07 | PDOC PROGRESS REPORT ---
Subjective Progress Note for:: 12/14/16 Subjective:: Patient denied any significant recurrent rectal so far today. Her Pelvic and ridge sigmoidoscopy suggested bleeding mainly from lower GI tract with significant ecchymotic changes around sites of recent colonoscopy associated biopsies. Patient will be schedule for surgical directed colonoscopy in the next 48 hours to determine need for further intervention. patient had cardiac stent placed twice in the past at [facility] and has been on Plavix therapy thereafter. Physical Exam Vital Signs: Temp Pulse Resp BP Pulse Ox 98.9 F 105 H 18 120/58 L 96 12/14/16 16:18 12/14/16 16:18 12/14/16 16:18 12/14/16 16:18 12/14/16 16:18 Intake & Output 12/13/16 12/14/16 12/15/16 06:59 06:59 06:59 Intake Total 1400 4178 1050 Output Total 1060 4490 300 Balance 340 -312 750 Weight 158.9 kg Physical Exam: General appearance: PRESENT: no acute distress, morbidly obese Head exam: PRESENT: atraumatic, normocephalic Eye exam: PRESENT: conjunctiva pale, EOMI, PERRLA Mouth exam: PRESENT: moist Respiratory exam: PRESENT: clear to auscultation christine Cardiovascular exam: PRESENT: RRR. ABSENT: diastolic murmur, rubs, systolic murmur GI/Abdominal exam: PRESENT: normal bowel sounds, soft. ABSENT: distended, guarding, mass, organomegaly, rebound, tenderness Rectal exam: PRESENT: deferred Gentrourinary exam: PRESENT: indwelling catheter Extremities exam: PRESENT: pedal edema Neurological exam: PRESENT: alert, awake, oriented to person, oriented to place , oriented to time, oriented to situation, CN II-XII grossly intact. ABSENT: motor sensory deficit Psychiatric exam: PRESENT: appropriate affect, normal mood. ABSENT: homicidal ideation, suicidal ideation Skin exam: PRESENT: dry, intact, warm. ABSENT: cyanosis, rash Results Laboratory Results: 12/14/16 06:25 12/14/16 06:25 12/12/16 12/14/16 12/14/16 21:55 04:40 06:25 WBC RBC Hgb Hct MCV MCH MCHC RDW Plt Count Sodium 139.2 Potassium 5.3 H Chloride 104 Carbon Dioxide 24 Anion Gap 11 BUN 32 H Creatinine 2.18 H Est GFR ( Amer) 28 L Est GFR (Non-Af Amer) 23 L Glucose 129 H Calcium 8.7 Urine Color YELLOW Urine Appearance SLIGHTLY-CLOUDY Urine pH 5.0 Ur Specific [place] 1.012 Urine Protein NEGATIVE Urine Glucose (UA) NEGATIVE Urine Ketones NEGATIVE Urine Blood MODERATE H Urine Nitrite NEGATIVE Ur Leukocyte Esterase SMALL H Urine WBC (Auto) 21 Urine RBC (Auto) 116 Blood Type O POSITIVE Antibody Screen NEGATIVE 12/14/16 06:25 WBC 8.7 RBC 3.18 L Hgb 8.1 L Hct 25.6 L MCV 81 MCH 25.5 L MCHC 31.7 L RDW 19.2 H Plt Count 246 Sodium Potassium Chloride Carbon Dioxide Anion Gap BUN Creatinine Est GFR ( Amer) Est GFR (Non-Af Amer) Glucose Calcium Urine Color Urine Appearance Urine pH Ur Specific [place] Urine Protein Urine Glucose (UA) Urine Ketones Urine Blood Urine Nitrite Ur Leukocyte Esterase Urine WBC (Auto) Urine RBC (Auto) Blood Type Antibody Screen Impressions: Chest X-Ray 12/12/16 05:21 IMPRESSION: No significant interval change. Head CT 12/12/16 06:51 IMPRESSION: No acute findings. Limitation. Transvaginal US 12/13/16 00:00 IMPRESSION: No significant pelvic abnormalities were identified. Assessment & Plan - Diagnosis (1) [id number]-kbbpzdk renal failure Qualifiers: Acute renal failure type: unspecified Chronic kidney disease stage: stage 5, not on chronic dialysis Qualified Code(s): N17.9 - Acute kidney failure, unspecified; N18.9 - Chronic kidney disease, unspecified Is this a current diagnosis for this admission?: YesPlan: Continue IV fluid support and avoid nephrotoxic medication or procedure as much as possible. Her renal indices are improving. (2) Anemia associated with acute blood loss Is this a current diagnosis for this admission?: YesPlan: From ridge sigmoidoscopy and Pelvic examination we were able to confirm her bleeding arising from multiple bruised areas in her intestine. No active bleeding at time of assessment. She is s/p 5 units PRBC. Awaiting complete colonoscopy by surgicalist in next 48 hours. (3) COPD mixed type Is this a current diagnosis for this admission?: YesPlan: See attending physician orders. (4) HTN (hypertension) Qualifiers: Hypertension type: essential hypertension Qualified Code(s): I10 - Essential (primary) hypertension Is this a current diagnosis for this admission?: YesPlan: See attending physician orders. 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 (6) PTSD (post-traumatic stress disorder) Is this a current diagnosis for this admission?: YesPlan: See attending physician orders. (7) Bipolar 1 disorder, depressed Is this a current diagnosis for this admission?: YesPlan: See attending physician orders. 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 Repeat CBC with diff and SMA7 in AM. I spent more than 50% of my bedside time explaining to patient her medical issues and need for further therapy. I will request for her angioplasty report from [facility] for more details on her stents
[2016-12-14] MEDS: BUPROPION HCL 75 MG TABLET PO SCH (21:23)
[2016-12-14] MEDS: TRAZODONE HCL 50 MG TABLET PO SCH (21:27)
[2016-12-14] MEDS: DIAZEPAM 5 MG TABLET PO SCH (21:27)
[2016-12-14] MEDS: ZOLPIDEM TARTRATE 5 MG TABLET PO SCH (21:27)
[2016-12-15] MEDS: LANSOPRAZOLE 30 MG TAB.RAP.DR PO SCH (05:12)
[2016-12-15] MEDS: GABAPENTIN 300 MG CAPSULE PO SCH ×3 (05:12→23:37)
[2016-12-15] MEDS: NORMAL SALINE 1000 ML 1,000 ML IV PRN (06:26)
[2016-12-15 06:49] LABS: ABSOLUTE EOSINOPHILS # (AUTO) 0.2 10^3/uL (0.0-0.6); ABSOLUTE LYMPHOCYTES (AUTO) 2.4 10^3/uL (0.5-4.7); ABSOLUTE MONOCYTES (AUTO) 0.7 10^3/uL (0.1-1.4); ABSOLUTE NEUT (AUTO) 4.5 10^3/uL (1.7-8.2); BASOPHILS % (AUTO) 0.5 % (0-2); EOSINOPHILS % (AUTO) 2.6 % (0-6); HEMATOCRIT 26.1 % (36.0-47.0); HEMOGLOBIN 8.2 g/dL (12.0-15.5); HGB HCT DIFFERENCE -1.5; LYMPHOCYTES % (AUTO) 30.6 % (13-45); MEAN CORPUSCULAR HEMOGLOBIN 25.3 pg (27.0-33.4); MEAN CORPUSCULAR HGB CONC 31.5 g/dL (32.0-36.0); MEAN CORPUSCULAR VOLUME 80 fl (80-97); MONOCYTES % (AUTO) 9.2 % (3-13); RED BLOOD COUNT 3.25 10^6/uL (3.72-5.28); RED CELL DISTRIBUTION WIDTH 18.7 % (11.5-14.0); SEGMENTED NEUTROPHILS % (AUTO) 57.1 % (42-78); WHITE BLOOD COUNT 7.8 10^3/uL (4.0-10.5)
[2016-12-15 07:12] LABS: ALANINE AMINOTRANSFERASE 20 U/L (9-52); ALBUMIN 3.5 g/dL (3.5-5.0); ALKALINE PHOSPHATASE 106 U/L (38-126); ANION GAP 8 (5-19); ASPARTATE AMINO TRANSFERASE 21 U/L (14-36); BILIRUBIN,DIRECT 0.3 mg/dL (0.0-0.4); BILIRUBIN,TOTAL 0.4 mg/dL (0.2-1.3); BLOOD UREA NITROGEN 20 mg/dL (7-20); CALCIUM 8.6 mg/dL (8.4-10.2); CARBON DIOXIDE 26 mmol/L (22-30); CHLORIDE 105 mmol/L (98-107); CREATININE RESULT 1.28 mg/dL (0.52-1.25); GLUCOSE 153 mg/dL (75-110); POTASSIUM 4.9 mmol/L (3.6-5.0); SODIUM 138.7 mmol/L (137-145)
[2016-12-15] MEDS: NITROGLYCERIN 5 MG (0.2 MG/HR) PATCH.TD24 TD SCH (08:20)
[2016-12-15] MEDS: AMITRIPTYLINE HCL 75 MG TABLET PO SCH (08:20)
[2016-12-15] MEDS: DULOXETINE HCL 30 MG CAPSULE.DR PO SCH ×2 (08:20→23:35)
[2016-12-15] MEDS: AMLODIPINE BESYLATE 5 MG TABLET PO SCH (08:20)
[2016-12-15] MEDS: OXYCODONE-ACETAMINOPHEN 5-325 MG TABLET PO SCH ×2 (08:21→23:36)
[2016-12-15] MEDS: LEVOTHYROXINE SODIUM 0.05 MG TABLET PO SCH (08:21)
[2016-12-15] MEDS: BUDESONIDE/FORMOTEROL 160-4.5 MCG 60 PUFF/6 GM MDI IH SCH ×2 (08:21→23:35)
[2016-12-15] MEDS: BENZTROPINE MESYLATE 1 MG TABLET PO SCH ×2 (08:21→17:22)
[2016-12-15] MEDS: ARIPIPRAZOLE 5 MG TABLET PO SCH ×2 (08:21→23:35)
[2016-12-15] MEDS: SITAGLIPTIN PHOSPHATE 25 MG TABLET PO SCH (08:22)
--- NOTE | 2016-12-15 08:30 | PDOC PROGRESS REPORT ---
Subjective Progress Note for:: 12/15/16 Subjective:: Patient denied any significant recurrent rectal so far today. No nausea or vomiting. No abdominal pain. Patient will be schedule for surgical directed colonoscopy tomorrow. No chest pain, SOB, or palpitation. Physical Exam Vital Signs: Temp Pulse Resp BP Pulse Ox 98.2 F 95 21 H 115/61 100 12/15/16 07:19 12/15/16 07:19 12/15/16 07:19 12/15/16 07:19 12/15/16 07:19 Intake & Output 12/14/16 12/15/16 12/16/16 06:59 06:59 06:59 Intake Total 4178 4951 Output Total 4490 2500 Balance -312 2451 Weight 158.9 kg 161.7 kg Physical Exam: General appearance: PRESENT: no acute distress, morbidly obese Head exam: PRESENT: atraumatic, normocephalic Eye exam: PRESENT: conjunctiva pale, EOMI, PERRLA Mouth exam: PRESENT: moist Respiratory exam: PRESENT: clear to auscultation christine Cardiovascular exam: PRESENT: RRR. ABSENT: diastolic murmur, rubs, systolic murmur GI/Abdominal exam: PRESENT: normal bowel sounds, soft. ABSENT: distended, guarding, mass, organomegaly, rebound, tenderness Rectal exam: PRESENT: deferred Gentrourinary exam: PRESENT: indwelling catheter Extremities exam: PRESENT: pedal edema Neurological exam: PRESENT: alert, awake, oriented to person, oriented to place , oriented to time, oriented to situation, CN II-XII grossly intact. ABSENT: motor sensory deficit Psychiatric exam: PRESENT: appropriate affect, normal mood. ABSENT: homicidal ideation, suicidal ideation Skin exam: PRESENT: dry, intact, warm. ABSENT: cyanosis, rash Results Laboratory Results: 12/15/16 06:34 12/15/16 06:34 12/15/16 12/15/16 06:34 06:34 WBC 7.8 RBC 3.25 L Hgb 8.2 L Hct 26.1 L MCV 80 MCH 25.3 L MCHC 31.5 L RDW 18.7 H Plt Count 257 Seg Neutrophils % 57.1 Lymphocytes % 30.6 Monocytes % 9.2 Eosinophils % 2.6 Basophils % 0.5 Absolute Neutrophils 4.5 Absolute Lymphocytes 2.4 Absolute Monocytes 0.7 Absolute Eosinophils 0.2 Absolute Basophils 0.0 Sodium 138.7 Potassium 4.9 Chloride 105 Carbon Dioxide 26 Anion Gap 8 BUN 20 Creatinine 1.28 H Est GFR ( Amer) 52 L Est GFR (Non-Af Amer) 43 L Glucose 153 H Calcium 8.6 Total Bilirubin 0.4 AST 21 ALT 20 Alkaline Phosphatase 106 Total Protein 7.0 Albumin 3.5 Impressions: Chest X-Ray 12/12/16 05:21 IMPRESSION: No significant interval change. Head CT 12/12/16 06:51 IMPRESSION: No acute findings. Limitation. Transvaginal US 12/13/16 00:00 IMPRESSION: No significant pelvic abnormalities were identified. Assessment & Plan - Diagnosis (1) Drfkz-me-ceybwqb renal failure Qualifiers: Acute renal failure type: unspecified Chronic kidney disease stage: stage 5, not on chronic dialysis Qualified Code(s): N17.9 - Acute kidney failure, unspecified; N18.9 - Chronic kidney disease, unspecified Is this a current diagnosis for this admission?: YesPlan: Continue IV fluid support. Her renal indices are improving. (2) Anemia associated with acute blood loss Is this a current diagnosis for this admission?: YesPlan: Patient is schedule for surveillance colonoscopy tomorrow by Dr Coughlin in view of findings on her ridge sigmoidoscopy. (3) COPD mixed type Is this a current diagnosis for this admission?: YesPlan: See attending physician orders. (4) HTN (hypertension) Qualifiers: Hypertension type: essential hypertension Qualified Code(s): I10 - Essential (primary) hypertension Is this a current diagnosis for this admission?: YesPlan: See attending physician orders. 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 (6) PTSD (post-traumatic stress disorder) Is this a current diagnosis for this admission?: YesPlan: See attending physician orders. (7) Bipolar 1 disorder, depressed Is this a current diagnosis for this admission?: YesPlan: See attending physician orders. - Time Time Spent with patient: 25-34 minutes Anticipated discharge: Home - Inpatient Certification Based on my medical assessment, after consideration of the patient's comorbidities, presenting symptoms, or acuity I expect that the services needed warrant INPATIENT care.: Yes I certify that my determination is in accordance with my understanding of Medicare's requirements for reasonable and necessary INPATIENT services [42 CFR 412.3e].: Yes Medical Necessity: Failure to Improve With Outpatient Therapy, Need Close Monitoring Due to Risk of Patient Decompensation, Need For IV Fluids, Need For Continuous Telemetry Monitoring, Risk of Complication if Not Cared For in Hospital - Plan Summary Plan Summary: See attending physician orders
[2016-12-15] MEDS: OXYCODONE HCL IR 5 MG TABLET PO SCH ×2 (11:14→23:37)
[2016-12-15] MEDS ORDERED: NORMAL SALINE 1000 ML 1,000 ML IV PRN (15:10)
--- NOTE | 2016-12-15 15:54 | PROGRESS NOTE E ---
Progress Note NAME: SANTOS NAVARRO : 1960 AGE: 56Y DATE: 12/15/2016 ROOM: 319 SUBJECTIVE: The patient disease anymore blood in the stool. She continues to deny any abdominal pains and no nausea or vomiting. She is able to tolerate her diet well. Her hemoglobin is stable at 8.2. She has stopped her Plavix for at least 3 days now. RECOMMENDATIONS: Continue stopping the Plavix and possible colonoscopy tomorrow with Dr. Herrera, make sure there are no bleeding sites. DICTATING PHYSICIAN: JENA MAN M.D. [id number] PHY#: [id number] ID: [id number] JOB#: [id number] ACCT: [id number] cc: >
[2016-12-15] MEDS: SIMVASTATIN 10 MG TABLET PO SCH (17:22)
[2016-12-15] MEDS ORDERED: PEG 3350/NA SULF,BICARB,CL/KCL 4000 ML PO ONE (18:00)
[2016-12-15 20:01] LABS: HEMATOCRIT 27.2 % (36.0-47.0); HEMOGLOBIN 8.5 g/dL (12.0-15.5); HGB HCT DIFFERENCE -1.7; MEAN CORPUSCULAR HEMOGLOBIN 25.1 pg (27.0-33.4); MEAN CORPUSCULAR HGB CONC 31.1 g/dL (32.0-36.0); MEAN CORPUSCULAR VOLUME 81 fl (80-97); RED BLOOD COUNT 3.37 10^6/uL (3.72-5.28); WHITE BLOOD COUNT 7.6 10^3/uL (4.0-10.5)
[2016-12-15 20:08] LABS: PROTHROMBIN TIME 13.5 SEC (11.4-15.4)
[2016-12-15 20:09] LABS: PARTIAL THROMBOPLASTIN TIME 31.5 SEC (23.5-35.8)
[2016-12-15] MEDS: BUPROPION HCL 75 MG TABLET PO SCH (23:34)
[2016-12-15] MEDS: ZOLPIDEM TARTRATE 5 MG TABLET PO SCH (23:36)
[2016-12-15] MEDS: TRAZODONE HCL 50 MG TABLET PO SCH (23:36)
[2016-12-15] MEDS: DIAZEPAM 5 MG TABLET PO SCH (23:36)
[2016-12-16 04:29] LABS: PROTHROMBIN TIME 13.3 SEC (11.4-15.4)
[2016-12-16 04:30] LABS: PARTIAL THROMBOPLASTIN TIME 37.1 SEC (23.5-35.8)
[2016-12-16 04:35] LABS: HEMATOCRIT 23.8 % (36.0-47.0); HGB HCT DIFFERENCE -1.3; MEAN CORPUSCULAR HEMOGLOBIN 25.2 pg (27.0-33.4); MEAN CORPUSCULAR HGB CONC 31.4 g/dL (32.0-36.0); MEAN CORPUSCULAR VOLUME 80 fl (80-97); RED BLOOD COUNT 2.96 10^6/uL (3.72-5.28); RED CELL DISTRIBUTION WIDTH 18.5 % (11.5-14.0); WHITE BLOOD COUNT 6.8 10^3/uL (4.0-10.5)
[2016-12-16 04:36] LABS: ANION GAP 9 (5-19); BLOOD UREA NITROGEN 15 mg/dL (7-20); CALCIUM 8.5 mg/dL (8.4-10.2); CARBON DIOXIDE 26 mmol/L (22-30); CHLORIDE 104 mmol/L (98-107); CREATININE RESULT 1.08 mg/dL (0.52-1.25); GLUCOSE 150 mg/dL (75-110); POTASSIUM 4.3 mmol/L (3.6-5.0)
[2016-12-16 04:43] LABS: HEMOGLOBIN 7.5 g/dL (12.0-15.5)
[2016-12-16] MEDS ORDERED: LEVOTHYROXINE SODIUM 0.05 MG TABLET PO SCH (06:00)
[2016-12-16] MEDS: LANSOPRAZOLE 30 MG TAB.RAP.DR PO SCH (06:19)
[2016-12-16] MEDS: GABAPENTIN 300 MG CAPSULE PO SCH ×2 (06:19→14:14)
[2016-12-16] MEDS ORDERED: NORMAL SALINE 250 ML IV PRN ×2 (08:47)
[2016-12-16] MEDS ORDERED: GLYCOPYRROLATE INJ 0.4 MG/2 ML VIAL ONE (10:02)
[2016-12-16] MEDS ORDERED: NALOXONE HCL INJ/PF 0.4 MG/1 ML SDV ONE (10:02)
[2016-12-16] MEDS ORDERED: ONDANSETRON HCL INJ/PF 4 MG/2 ML SDV ONE (10:02)
[2016-12-16] MEDS ORDERED: FENTANYL CITRATE INJ/PF 100 MCG/2 ML AMPUL ONE (10:03)
[2016-12-16] MEDS ORDERED: FLUMAZENIL INJ 0.5 MG/5 ML VIAL IV ONE (10:03)
[2016-12-16] MEDS ORDERED: EPINEPHRINE INJ 1 MG/10 ML DISP.SYRIN ONE (10:04)
[2016-12-16] MEDS ORDERED: GLUCAGON,HUMAN RECOMB 1 MG INJ ONE (10:04)
[2016-12-16] MEDS: DULOXETINE HCL 30 MG CAPSULE.DR PO SCH (10:44)
[2016-12-16] MEDS: SITAGLIPTIN PHOSPHATE 25 MG TABLET PO SCH (10:44)
[2016-12-16] MEDS: ARIPIPRAZOLE 5 MG TABLET PO SCH (10:44)
[2016-12-16] MEDS: AMLODIPINE BESYLATE 5 MG TABLET PO SCH (10:44)
[2016-12-16] MEDS: OXYCODONE-ACETAMINOPHEN 5-325 MG TABLET PO SCH (10:44)
[2016-12-16] MEDS: OXYCODONE HCL IR 5 MG TABLET PO SCH (10:44)
[2016-12-16] MEDS: BENZTROPINE MESYLATE 1 MG TABLET PO SCH ×2 (10:44→18:42)
[2016-12-16] MEDS: AMITRIPTYLINE HCL 75 MG TABLET PO SCH (10:44)
[2016-12-16] MEDS: NITROGLYCERIN 5 MG (0.2 MG/HR) PATCH.TD24 TD SCH (10:56)
[2016-12-16] MEDS: BUDESONIDE/FORMOTEROL 160-4.5 MCG 60 PUFF/6 GM MDI IH SCH (10:57)
--- NOTE | 2016-12-16 12:58 | RADIOLOGY REPORT (SQ) ---
EXAM DESCRIPTION: NM GI BLEED SCAN COMPLETED DATE/TIME: 12/16/2016 12:44 pm REASON FOR STUDY: GI bleed COMPARISON: None RADIONUCLIDE AND DOSE: 27 millicuries Technetium-labeled red blood cells. The route of agent administration: Oral. TECHNIQUE: Serial arterial-phase images acquired for 80 seconds immediately following injection of r adionuclide. Additional 60 images acquired at 60 seconds per image. LIMITATIONS: None. FINDINGS: Flow images without focal areas of abnormal radionuclide location. Serial images show no abnormal accumulation of radionuclide. IMPRESSION: NORMAL RADIONUCLIDE GASTROINTESTINAL BLEEDING STUDY. TECHNICAL DOCUMENTATION: JOB ID: [id number] [employer]- All Rights Reserved
[2016-12-16] MEDS: MIDAZOLAM 2 MG/2 ML INJ ONE ×3 (15:24→15:50)
--- NOTE | 2016-12-16 16:08 | Operative Report ---
Nonrecallable Operative Report DATE OF SURGERY: 12/16/16 PREOPERATIVE DIAGNOSIS: 1. History of GI bleed. 2. History of anemia. 3. History of chronic active gastritis POSTOPERATIVE DIAGNOSIS: 1. No evidence of upper or lower gastrointestinal bleeding, clot or lesion. 2. Gastroparesis. 3. Colon full of stool. 4. External and internal hemorrhoids nonthrombosed OPERATION: 1. Esophagogastroduodenoscopy. 2. Total colonoscopy to cecum SURGEON: SIMON LAZARO ANESTHESIA: Moderate Sedation TISSUE REMOVED OR ALTERED: None COMPLICATIONS: None ESTIMATED BLOOD LOSS: None INTRAOPERATIVE FINDINGS: See below PROCEDURE: The patient was taken to the third floor [facility] to the fifth floor endoscopy suite where she is placed in semirecumbent position. Appropriate level sedation was achieved monitoring devices.. Surgical plan surgical timeout were conducted. Oral mouthpiece inserted. A flexible adult upper endoscope was advanced through the oropharynx, down the esophagus into the stomach into the duodenum. This was well tolerated by the patient. The duodenum was normal. The stomach was unremarkable except for some retained gastric contents and undigested food. There was no evidence of tumor stricture bleeding or polyp or any evidence of clot. There was endoscopic evidence of a chronic inactive gastritis, but no biopsies were taken as this was already performed [address] Rodriguez in [place]. Scope was withdrawn to the pylorus to the stomach retroflexed in the stomach and no other pathology seen. Scope was withdrawn to the GE junction. The Z line was approximately 40 cm from the incisor. The esophagus was grossly unremarkable with no evidence of varices stricture bleeding or inflammation. The scope was withdrawn to the patient's oropharynx. She was rotated position placed in extreme left lateral decubitus position and the second portion procedure performed. Rectal exam was performed. There were external and internal hemorrhoids/ The flexible adult colonoscope was advanced through the entire colon to the cecum. The patient tolerated procedure well. The findings are significant for a massive amount of semisolid solid and liquid feces. Clearly the bowel prep was inadequate We did withdraw the scope through the length of the colon and noted there was no evidence of bladder clot. However due to the presence of a massive amount of stool, there was no way the mucosa could be properly evaluated. Patient had the colonoscopy withdrawn from her anal rectal canal she tolerated procedure well. Per surveillance guidelines she will be due for follow-up colonoscopy in 5-7 years.
[2016-12-16 17:51] LABS: HEMOGLOBIN 8.8 g/dL (12.0-15.5); HGB HCT DIFFERENCE -1.6; MEAN CORPUSCULAR HEMOGLOBIN 25.9 pg (27.0-33.4); MEAN CORPUSCULAR HGB CONC 31.3 g/dL (32.0-36.0); MEAN CORPUSCULAR VOLUME 83 fl (80-97); RED BLOOD COUNT 3.38 10^6/uL (3.72-5.28)
--- NOTE | 2016-12-16 18:18 | PDOC DISCHARGE SUMMARY ---
General - Admit/Disc Date/PCP Admission Date/Primary Care Provider: 12/12/16 19:00 Discharge Date: 12/16/16 - Discharge Diagnosis (1) [id number] renal failure Is this a current diagnosis for this admission?: YesSummary: Resolved as per normal renal indices. (2) Anemia associated with acute blood loss Is this a current diagnosis for this admission?: YesSummary: Transfused total of 7 units of PRBC with stable Hemoglobin at 8.8gm/dL. 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 Is this a current diagnosis for this admission?: Yes (6) PTSD (post-traumatic stress disorder) Is this a current diagnosis for this admission?: Yes (7) Bipolar 1 disorder, depressed Is this a current diagnosis for this admission?: Yes - Additional Information Resuscitation Status: Full Code Discharge Diet: Cardiac, Diabetic Discharge Activity: Activity As Tolerated Home Medications: Amitriptyline HCl [Elavil 150 mg Tablet] 1 tab PO DAILY 12/12/16 Aripiprazole [Abilify 30 MG Tablet] 15 mg PO BID 12/12/16 Benztropine Mesylate [Cogentin 1 mg Tablet] 1 tab PO BID 12/12/16 Budesonide/Formoterol Fumarate [Symbicort HFA 160-4.5 mcg Inhaler 6 gm] 2 puff IH Q12 12/12/16 Bupropion HCl [Bupropion HCl Sr] 150 mg PO QHS 12/12/16 Dexlansoprazole [Dexilant 60 mg Capsule] 60 mg PO DAILY 12/12/16 Diazepam [Valium 5 mg Tablet] 5 mg PO QHS 12/12/16 Duloxetine HCl [Cymbalta] 60 mg PO Q12 12/12/16 Ferrous Sulfate [Feosol 325 mg Tablet] 325 mg PO BID 12/12/16 Furosemide [Lasix] 40 mg PO DAILY 12/12/16 Gabapentin [Neurontin 300 mg Capsule] 300 mg PO Q8 12/12/16 Insulin Lispro [Humalog Kwikpen U-100] 0 unit SQ .SLD SCALE 12/12/16 Levothyroxine Sodium [Synthroid 0.05 mg Tablet] 50 mcg PO DAILY 12/12/16 Liraglutide [Victoza 2-Armando] 1.8 mg SQ DAILY 12/12/16 Lubiprostone [Amitiza 24 Mcg Capsule] 24 mcg PO Q12 12/12/16 Magnesium Oxide [Mag-Ox 400 mg Tablet] 400 mg PO BID 12/12/16 Methocarbamol [Robaxin 500 mg Tablet] 500 mg PO TIDP PRN 12/12/16 Naloxegol Oxalate [Movantik 25 mg Tablet] 25 mg PO QAM 12/12/16 Nitroglycerin [Nitro-Dur 5 mg (0.2 mg/Hr) Transdermal Patch] 1 patch TD QAM 06/18 Omeprazole 40 mg PO Q12 12/12/16 Oxycodone HCl/Acetaminophen [Percocet 7.5-325 mg Tablet] 1 each PO Q12 12/12/16 Saxagliptin HCl [Onglyza] 2.5 mg PO DAILY 12/12/16 Simvastatin [Zocor 20 mg Tablet] 20 mg PO QPM 12/12/16 Trazodone HCl [Desyrel] 300 mg PO QHS 12/12/16 Zolpidem Tartrate [Ambien] 20 mg PO QHS 12/12/16 Olmesartan Medoxomil 20 mg PO DAILY #30 tablet 12/16/16 History of Present Illness History of Present Illness: SANTOS NAVARRO is a 56 year old female known to my practice brought to ED by EMS due to above complaints. Patient reported associated intermittent chest pain and chills. She denied any fever. Remain on long standing supplemental oxygen via nasal canula. Patient reported intermittent episodes of bleeding with voiding which she related to possible hemorrhoid. A witnessed voiding by nursing staff since admission did suggest possible genitourinary site of her bleeding. Patient reported associated lower abdominal pain. Her initial evaluation in the eD revealed hemoglobin at 54.7gm/dL a downward trend from 5.3gm/dL yesterday. Patient's extensive anemia workup and evaluation including bone marrow assessment was unrevealing of site of possible bleeding. Her evaluation in ED did revealed acute elevation in her serum creatinine and BUN. In view of her presentation and listed findings she was advised admission to the hospital. Patient claimed that she is not a Jehovah witness but her parents are and she was brought up in the christianity [place]. In view of her significant anemia and continue intermittent bleeding, she agreed to PRBC transfusion at her who violation. I did expressed concern about her decision and she is willing to put her decision in writing along with signed consent for blood transfusion. In view of her urination associated bleeding there is concern for possible urinary tract as site of bleeding versus vaginal and uterus. She is agreeable to PSYCHOLOGICAL EXAMINER and Nephrology consultation. Hospital Course Hospital Course: Patient was admitted for acute on chronic renal failure and severe anemia. Patient subsequently had witnessed bleeding with urination she denie any bowel movement with the incidental bleeding. It was initially thought that her bleeding was genitourinary tract source. She had extensive workup for severe anemia on outpatient with identifiable source for her bleeding. In view of this she was seen in consultation by the gynecologists, Dr. Perdomo and Eddie. also, she was seen by Dr Walter, surgicalist. She underwent pelvic examination and ridge sigmoidoscopy thereafter that confirm no bleeding being s/p total hysterectomy and definite lower GI bleed with blood clot in her rectal vault. She did have evidence of bleeding from her recent sites of colonoscopy with biopsies, total of 3 colonoscopies between 05/2016 and 10/2016. She had EGD and another colonoscopy performed today by Dr Herrera that suggested normal EGD findings, internal and external hemorrhoids on colonoscopy. Her bleeding scan completed on 12/16/16 was negative for any active bleeding GI site. Patient had total of 7 units of PRBC transfused during this [id number]. She was seen in consultation by Dr Son Garcia, process engineering technician, due to worsening renal indices suggestive of acute on chronic renal failure. Patient's renal functional indices did show complete recovery to normal range with IV fluid support and avoidance of nephrotoxic mediations. Her current hemoglobin is 8.8 gm/dL. She is agreeable to discharge home today. She will follow up with Dr Herrera as instructed upon discharge for further management of her hemorrhoid on outpatient basis. She will follow up with me in office as instructed upon discharge. Physical Exam Vital Signs: Temp Pulse Resp BP Pulse Ox 98.5 F 88 20 104/62 98 12/16/16 17:04 12/16/16 17:04 12/16/16 17:04 12/16/16 17:04 12/16/16 17:04 Intake & Output 06/15/17 06/16/17 06/17/17 06:59 06:59 06:59 Intake Total 1442 5621 700 Output Total 5228 500 Balance 1387 1478 700 Weight 161.7 kg 164.2 kg Physical Exam: General appearance: PRESENT: no acute distress, morbidly obese Head exam: PRESENT: atraumatic, normocephalic Eye exam: PRESENT: conjunctiva pale, EOMI, PERRLA Mouth exam: PRESENT: moist Respiratory exam: PRESENT: clear to auscultation christine Cardiovascular exam: PRESENT: RRR. ABSENT: diastolic murmur, rubs, systolic murmur GI/Abdominal exam: PRESENT: normal bowel sounds, soft. ABSENT: distended, guarding, mass, organomegaly, rebound, tenderness Rectal exam: PRESENT: deferred Gentrourinary exam: PRESENT: indwelling catheter Extremities exam: PRESENT: pedal edema Neurological exam: PRESENT: alert, awake, oriented to person, oriented to place , oriented to time, oriented to situation, CN II-XII grossly intact. ABSENT: motor sensory deficit Psychiatric exam: PRESENT: appropriate affect, normal mood. ABSENT: homicidal ideation, suicidal ideation Skin exam: PRESENT: dry, intact, warm. ABSENT: cyanosis, rash Results Laboratory Results: 12/16/16 17:16 12/16/16 04:10 12/12/16 12/15/16 12/15/16 21:55 19:30 19:30 WBC 7.6 RBC 3.37 L Hgb 8.5 L Hct 27.2 L MCV 81 MCH 25.1 L MCHC 31.1 L RDW 19.0 H Plt Count 244 Sodium Potassium Chloride Carbon Dioxide Anion Gap BUN Creatinine Est GFR ( Amer) Est GFR (Non-Af Amer) Glucose Calcium Blood Type O POSITIVE O POSITIVE Antibody Screen NEGATIVE NEGATIVE 12/16/16 12/16/16 12/16/16 04:10 04:10 17:16 WBC 6.8 7.0 RBC 2.96 L 3.38 L Hgb 7.5 L 8.8 L Hct 23.8 L 28.0 L MCV 80 83 MCH 25.2 L 25.9 L MCHC 31.4 L 31.3 L RDW 18.5 H 18.0 H Plt Count 236 220 Sodium 139.0 Potassium 4.3 Chloride 104 Carbon Dioxide 26 Anion Gap 9 BUN 15 Creatinine 1.08 Est GFR ( Amer) > 60 Est GFR (Non-Af Amer) 52 L Glucose 150 H Calcium 8.5 Blood Type Antibody Screen Impressions: Chest X-Ray 12/12/16 05:21 IMPRESSION: No significant interval change. Head CT 12/12/16 06:51 IMPRESSION: No acute findings. Limitation. Transvaginal US 12/13/16 00:00 IMPRESSION: No significant pelvic abnormalities were identified. GI Bleed Scan Nuclear Medicine 12/16/16 09:00 IMPRESSION: NORMAL RADIONUCLIDE GASTROINTESTINAL BLEEDING STUDY. Qualifiers PATEINT BEING DISCHARGED WITH ANY OF THE FOLLOWING DIAGNOSIS?: No Plan Discharge Plan: She will be discharged home today with plan to follow up with Dr. Herrera and myself as instructed upon discharge.
[2016-12-16] MEDS: SIMVASTATIN 10 MG TABLET PO SCH (18:42)
[2016-12-16 18:53] VITALS: BP 125/64
== END 2016-12-16 19:16 | disposition home or self-care (01) | DRG 683 ==
LOC: ER 04:28 → EH 08:30 → UNDOADMIN 08:30 → 3W 11:23 → EH 11:23 → 3W 19:00 → EEVIPCON 19:00 → 3W 22:35
PROVIDERS: ADMIT Internal Medicine Geriatric Medicine; ATTEND Internal Medicine Geriatric Medicine
PROC: 30233N1 Transfusion of Nonautologous Red Blood Cells into Peripheral Vein, Percutaneous Approach (ICD-10-PCS; 2016-12-13)
PROC: 0DJD8ZZ Inspection of Lower Intestinal Tract, Via Natural or Artificial Opening Endoscopic (ICD-10-PCS; 2016-12-14)
PROC: 0DJD8ZZ Inspection of Lower Intestinal Tract, Via Natural or Artificial Opening Endoscopic (ICD-10-PCS; 2016-12-14)
PROC: 30233N1 Transfusion of Nonautologous Red Blood Cells into Peripheral Vein, Percutaneous Approach (ICD-10-PCS; 2016-12-14)
PROC: 30233N1 Transfusion of Nonautologous Red Blood Cells into Peripheral Vein, Percutaneous Approach (ICD-10-PCS; 2016-12-16)
PROC: 0DJ08ZZ Inspection of Upper Intestinal Tract, Via Natural or Artificial Opening Endoscopic (ICD-10-PCS; principal; 2016-12-16 12:30)
PROC: 0DJD8ZZ Inspection of Lower Intestinal Tract, Via Natural or Artificial Opening Endoscopic (ICD-10-PCS; 2016-12-16 12:30)
DX: N17.0 Acute kidney failure with tubular necrosis (principal); D62 Acute posthemorrhagic anemia; E87.5 Hyperkalemia; I12.9 Hypertensive chronic kidney disease with stage 1 through stage 4 chronic kidney disease, or unspecified chronic kidney disease; E11.22 Type 2 diabetes mellitus with diabetic chronic kidney disease; N18.5 Chronic kidney disease, stage 5; E11.43 Type 2 diabetes mellitus with diabetic autonomic (poly)neuropathy; K31.84 Gastroparesis; J44.9 Chronic obstructive pulmonary disease, unspecified; F43.10 Post-traumatic stress disorder, unspecified; F31.9 Bipolar disorder, unspecified; Z79.899 Other long term (current) drug therapy; K64.8 Other hemorrhoids; K64.4 Residual hemorrhoidal skin tags; Z86.010 Personal history of colon polyps; I73.9 Peripheral vascular disease, unspecified; K21.9 Gastro-esophageal reflux disease without esophagitis; M19.90 Unspecified osteoarthritis, unspecified site; M79.7 Fibromyalgia; G47.30 Sleep apnea, unspecified; E78.5 Hyperlipidemia, unspecified; E03.9 Hypothyroidism, unspecified; M06.9 Rheumatoid arthritis, unspecified; I25.2 Old myocardial infarction; Z79.02 Long term (current) use of antithrombotics/antiplatelets; Z79.4 Long term (current) use of insulin; Z95.1 Presence of aortocoronary bypass graft; Z95.5 Presence of coronary angioplasty implant and graft; I25.10 Atherosclerotic heart disease of native coronary artery without angina pectoris; Z88.1 Allergy status to other antibiotic agents; Z88.8 Allergy status to other drugs, medicaments and biological substances; Z90.710 Acquired absence of both cervix and uterus
CPT/HCPCS: 36415; 36430; 36591; 43235; 45378; 70450; 71010; 76830; 78278; 80048; 80053; 81001; 82550; 82553; 82565; 82962; 83880; 84484; 85025; 85027; 85610; 85730; 86850; 86900; 86901; 86920; 88142; 902; 93976; 99291; A9560; J0171; J1170; J1610; J1642; J1815; J2250; J2310; J2405; J2704; J3010; J3490; J7030; P9016; Q9969

== ENCOUNTER 2016-12-19 23:34 | Emergency (ER) | payer MEDICARE, MEDICAID ==
--- NOTE | 2016-12-20 00:07 | ER Document Report ---
ED Medical Screen (RME) - General Chief Complaint: Vomiting Stated Complaint: VOMITTING/DIZZY Time Seen by Provider: 12/20/16 00:04 Mode of Arrival: Medic Information source: Patient Notes: Patient presents complaining of nausea and vomiting that started yesterday. Patient states she has vomited 6 times. Patient reports dizziness for the past 2 days. Patient additionally complains of tenderness to the right lower leg that she has had for 8 months although states that she noticed the area was warm to the touch today. Patient states she had a blood transfusion due to renal failure last week. Patient feels that her symptoms may be related to having a blood transfusion. hx: Diabetes, CHF, AK, hypertension, COPD TRAVEL OUTSIDE OF THE [place] IN LAST 30 DAYS: No - Related Data Allergies/Adverse Reactions: cephalexin monohydrate [From Keflex] Allergy (Unknown, Verified 12/01/16 11:35) codeine [Codeine] Allergy (Unknown, Verified 12/01/16 11:35) dicyclomine HCl [From Bentyl] Allergy (Unknown, Verified 12/01/16 11:35) hydrocodone bitartrate [From Vicodin] Allergy (Unknown, Verified 12/01/16 11:35) meloxicam [From Mobic] Allergy (Unknown, Verified 12/01/16 11:35) meperidine HCl [From Demerol (PF)] Allergy (Unknown, Verified 12/01/16 11:35) morphine [Morphine] Allergy (Unknown, Verified 12/01/16 11:35) naproxen sodium [From Naprelan CR Dosepak] Allergy (Unknown, Verified 12/01/16 11:35) nitrofurantoin [From Macrobid] Allergy (Unknown, Verified 12/01/16 11:35) pantoprazole sodium [From Protonix] Allergy (Unknown, Verified 12/01/16 11:35) Penicillins Allergy (Unknown, Verified 12/01/16 11:35) Sulfa (Sulfonamide Antibiotics) Allergy (Unknown, Verified 12/01/16 11:35) tramadol HCl [From Ultracet] Allergy (Unknown, Verified 12/01/16 11:35) lamotrigine [From Lamictal] Allergy (Verified 12/01/16 11:35) rash Past Medical History - Social History Family history: Reviewed & Not Pertinent - Past Medical History Cardiac Medical History: Reports: Hx Congestive Heart Failure, Hx Coronary Artery Disease, Hx Heart Attack - 2 stents, Hx Hypercholesterolemia, Hx Hypertension, Hx Peripheral Vascular Disease Denies: Hx Heart Murmur Pulmonary Medical History: Reports: Hx Asthma, Hx Bronchitis, Hx COPD - Oxygen use at home, inhaler., Hx Sleep Apnea Denies: Hx Pneumonia, Hx Respiratory Failure, Hx Tuberculosis Neurological Medical History: Reports: Hx Migraine. Denies: Hx Cerebrovascular Accident, Hx Seizures Endocrine Medical History: Reports: Hx Diabetes Mellitus Type 2, Hx Hyperthyroidism, Hx Hypothyroidism Renal/ Medical History: Reports: Hx End Stage Renal Disease - Stage IV, Hx Renal Insufficiency. Denies: Hx Peritoneal Dialysis Malignancy Medical History: GI Medical History: Reports: Hx Gastroesophageal Reflux Disease Musculoskeltal Medical History: Reports Hx Arthritis, Reports Hx Fibromyalgia, Reports Hx Muscle Weakness Psychiatric Medical History: Reports: Hx Bipolar Disorder, Hx Depression, Hx Post Traumatic Stress Disorder, Hx Schizophrenia Traumatic Medical History: Infectious Medical History: Past Surgical History: Reports: Hx Cardiac Catheterization, Hx Section - x2, Hx Coronary Artery Bypass Graft, Hx Coronary Stent - x2, Hx Hysterectomy, Hx Orthopedic Surgery - christine knee surgery, christine feet surgery, Hx Tubal Ligation - Immunizations Hx Diphtheria, Pertussis, Tetanus Vaccination: Yes Physical Exam - Vital signs Vitals: Temp Pulse Resp BP Pulse Ox 99.0 F 100 18 136/66 H 94 12/19/16 23:49 12/19/16 23:49 12/19/16 23:49 12/19/16 23:49 12/19/16 23:49 - Extremities General lower extremity: Tender - Anterior aspect of right lower extremity tender and warm to the touch Course - Vital Signs Vital signs: Temp Pulse Resp BP Pulse Ox 99.0 F 100 18 136/66 H 94 12/19/16 23:49 12/19/16 23:49 12/19/16 23:49 12/19/16 23:49 12/19/16 23:49
[2016-12-20 06:23] LABS: ALANINE AMINOTRANSFERASE 28 U/L (9-52); ALBUMIN 3.3 g/dL (3.5-5.0); ALKALINE PHOSPHATASE 116 U/L (38-126); ANION GAP 13 (5-19); ASPARTATE AMINO TRANSFERASE 19 U/L (14-36); BILIRUBIN,DIRECT 0.4 mg/dL (0.0-0.4); BILIRUBIN,TOTAL 0.7 mg/dL (0.2-1.3); BLOOD UREA NITROGEN 8 mg/dL (7-20); CALCIUM 8.8 mg/dL (8.4-10.2); CARBON DIOXIDE 21 mmol/L (22-30); CHLORIDE 104 mmol/L (98-107); CREATINE KINASE 99 U/L (30-135); CREATININE RESULT 1.06 mg/dL (0.52-1.25); GLUCOSE 125 mg/dL (75-110); MAGNESIUM 1.8 mg/dL (1.6-2.3); POTASSIUM 3.7 mmol/L (3.6-5.0); SODIUM 137.5 mmol/L (137-145); TOTAL PROTEIN 6.5 g/dL (6.3-8.2)
[2016-12-20] MEDS ORDERED: MECLIZINE HCL 25 MG TABLET PO ONE (06:27)
[2016-12-20 06:34] LABS: CREATINE KINASE MB 0.33 ng/mL (<4.55)
[2016-12-20 06:37] LABS: TROPONIN I < 0.012 ng/mL
[2016-12-20 07:18] LABS: APPEARANCE,URINE CLOUDY; BILIRUBIN,URINE NEGATIVE (NEGATIVE); GLUCOSE, URINE NEGATIVE (NEGATIVE); KETONES,URINE 20 mg/dL (NEGATIVE); LEUKOCYTE ESTERASE,URINE LARGE (NEGATIVE); NITRITE,URINE POSITIVE (NEGATIVE); PROTEIN,URINE 30 mg/dL (NEGATIVE); URINE SPECIFIC GRAVITY 1.008; UROBILINOGEN,URINE NEGATIVE mg/dL (<2.0)
[2016-12-20 07:35] LABS: ABSOLUTE BASOPHILS # (AUTO) 0.1 10^3/uL (0.0-0.2); ABSOLUTE EOSINOPHILS # (AUTO) 0.1 10^3/uL (0.0-0.6); ABSOLUTE LYMPHOCYTES (AUTO) 1.9 10^3/uL (0.5-4.7); ABSOLUTE MONOCYTES (AUTO) 1.1 10^3/uL (0.1-1.4); ABSOLUTE NEUT (AUTO) 10.6 10^3/uL (1.7-8.2); BASOPHILS % (AUTO) 0.5 % (0-2); EOSINOPHILS % (AUTO) 0.4 % (0-6); HEMATOCRIT 25.5 % (36.0-47.0); HGB HCT DIFFERENCE -1.5; LYMPHOCYTES % (AUTO) 13.9 % (13-45); MEAN CORPUSCULAR HEMOGLOBIN 25.2 pg (27.0-33.4); MEAN CORPUSCULAR HGB CONC 31.2 g/dL (32.0-36.0); MEAN CORPUSCULAR VOLUME 81 fl (80-97); MONOCYTES % (AUTO) 7.8 % (3-13); RED BLOOD COUNT 3.16 10^6/uL (3.72-5.28); RED CELL DISTRIBUTION WIDTH 18.4 % (11.5-14.0); SEGMENTED NEUTROPHILS % (AUTO) 77.4 % (42-78); WHITE BLOOD COUNT 13.7 10^3/uL (4.0-10.5)
[2016-12-20] MEDS ORDERED: DOXYCYCLINE HYCLATE 100 MG TABLET PO ONE (07:58)
--- NOTE | 2016-12-20 08:30 | RADIOLOGY REPORT (SQ) ---
EXAM DESCRIPTION: CHEST PA/LAT COMPLETED DATE/TIME: 12/20/2016 8:12 am REASON FOR STUDY: dizzy COMPARISON: 07/27/2016 EXAM PARAMETERS: NUMBER OF VIEWS: two views TECHNIQUE: Digital Frontal and Lateral radiographic views of the chest acquired. RADIATION DOSE: NA LIMITATIONS: Oblique choose 3 AP view FINDINGS: LUNGS AND PLEURA: No opacities, masses or pneumothorax. No pleural effusion. MEDIASTINUM AND HILAR STRUCTURES: No masses or contour abnormalities. HEART AND VASCULAR STRUCTURES: Mild cardiomegaly. Mild vascular congestion improved from the prior s tudy. BONES: No acute findings. HARDWARE: Right jugular catheter with tip in superior vena cava. OTHER: No other significant finding. IMPRESSION: Mild cardiomegaly and mild vascular congestion. TECHNICAL DOCUMENTATION: JOB ID: [id number] [employer]- All Rights Reserved
[2016-12-20] MEDS ORDERED: FUROSEMIDE 40 MG TABLET PO ONE (08:56)
--- NOTE | 2016-12-20 09:04 | ER Document Report ---
ED General - General Chief Complaint: Vomiting Stated Complaint: VOMITTING/DIZZY Time Seen by Provider: 12/20/16 00:04 Mode of Arrival: Medic TRAVEL OUTSIDE OF THE [place] IN LAST 30 DAYS: No - HPI Patient complains to provider of: Vomiting dizziness Notes: Patient coming in for evaluation of vomiting dizziness. Patient thinks that her symptoms are related to her previous blood transfusion. Patient had blood transfusion approximately 5 days prior to this visit. Patient states vomited multiple times. Upon my evaluation patient is alert and oriented patient is on 2 L nasal cannula states that she is on home oxygen 24 7 patient also complains of bilateral lower leg swelling. Patient states compliance with her Lasix at home. Denies fevers chills diarrhea. - Related Data Allergies/Adverse Reactions: cephalexin monohydrate [From Keflex] Allergy (Unknown, Verified 12/20/16 12:11) codeine [Codeine] Allergy (Unknown, Verified 12/20/16 12:11) dicyclomine HCl [From Bentyl] Allergy (Unknown, Verified 12/20/16 12:11) hydrocodone bitartrate [From Vicodin] Allergy (Unknown, Verified 12/20/16 12:11) meloxicam [From Mobic] Allergy (Unknown, Verified 12/20/16 12:11) meperidine HCl [From Demerol (PF)] Allergy (Unknown, Verified 12/20/16 12:11) morphine [Morphine] Allergy (Unknown, Verified 12/20/16 12:11) naproxen sodium [From Naprelan CR Dosepak] Allergy (Unknown, Verified 12/20/16 12:11) nitrofurantoin [From Macrobid] Allergy (Unknown, Verified 12/20/16 12:11) pantoprazole sodium [From Protonix] Allergy (Unknown, Verified 12/20/16 12:11) Penicillins Allergy (Unknown, Verified 12/20/16 12:11) Sulfa (Sulfonamide Antibiotics) Allergy (Unknown, Verified 12/20/16 12:11) tramadol HCl [From Ultracet] Allergy (Unknown, Verified 12/20/16 12:11) lamotrigine [From Lamictal] Allergy (Verified 12/20/16 12:11) rash Past Medical History - General Information source: Patient - Social History Smoking Status: Unknown if Ever Smoked Drug Abuse: None Family History: None - Past Medical History Cardiac Medical History: Reports: Hx Congestive Heart Failure, Hx Coronary Artery Disease, Hx Heart Attack - 2 stents, Hx Hypercholesterolemia, Hx Hypertension, Hx Peripheral Vascular Disease Denies: Hx Heart Murmur Pulmonary Medical History: Reports: Hx Asthma, Hx Bronchitis, Hx COPD - Oxygen use at home, inhaler., Hx Sleep Apnea Denies: Hx Pneumonia, Hx Respiratory Failure, Hx Tuberculosis Neurological Medical History: Reports: Hx Migraine. Denies: Hx Cerebrovascular Accident, Hx Seizures Endocrine Medical History: Reports: Hx Diabetes Mellitus Type 2, Hx Hyperthyroidism, Hx Hypothyroidism Renal/ Medical History: Reports: Hx End Stage Renal Disease - Stage IV, Hx Renal Insufficiency. Denies: Hx Peritoneal Dialysis Malignancy Medical History: GI Medical History: Reports: Hx Gastroesophageal Reflux Disease Musculoskeltal Medical History: Reports Hx Arthritis, Reports Hx Fibromyalgia, Reports Hx Muscle Weakness Psychiatric Medical History: Reports: Hx Bipolar Disorder, Hx Depression, Hx Post Traumatic Stress Disorder, Hx Schizophrenia Traumatic Medical History: Infectious Medical History: Past Surgical History: Reports: Hx Cardiac Catheterization, Hx Section - x2, Hx Coronary Artery Bypass Graft, Hx Coronary Stent - x2, Hx Hysterectomy, Hx Orthopedic Surgery - christine knee surgery, christine feet surgery, Hx Tubal Ligation - Immunizations Hx Diphtheria, Pertussis, Tetanus Vaccination: Yes Hx Pneumococcal Vaccination: 04/02/13 Review of Systems - Review of Systems Constitutional: No symptoms reported EENT: No symptoms reported Cardiovascular: No symptoms reported Respiratory: No symptoms reported Gastrointestinal: Vomiting Genitourinary: No symptoms reported Female Genitourinary: No symptoms reported Musculoskeletal: No symptoms reported Skin: No symptoms reported Hematologic/Lymphatic: No symptoms reported Neurological/Psychological: Other - Dizziness -: Yes All other systems reviewed and negative Physical Exam - Vital signs Vitals: Temp Pulse Resp BP Pulse Ox 99.0 F 100 18 136/66 H 94 12/19/16 23:49 12/19/16 23:49 12/19/16 23:49 12/19/16 23:49 12/19/16 23:49 Interpretation: Normal - General General appearance: Appears well, Alert - HEENT Head: Normocephalic, Atraumatic Eyes: Normal Pupils: PERRL - Respiratory Respiratory status: No respiratory distress Chest status: Nontender Breath sounds: Normal Chest palpation: Normal - Cardiovascular Rhythm: Regular Heart sounds: Normal auscultation Murmur: No - Abdominal Inspection: Normal Distension: No distension Bowel sounds: Normal Tenderness: Nontender Organomegaly: No organomegaly - Back Back: Normal, Nontender - Extremities General upper extremity: Normal inspection, Nontender, Normal color, Normal ROM , Normal temperature General lower extremity: Normal inspection, Nontender, Edema - 2Plus bilateral, Normal color, Normal ROM, Normal temperature, Normal weight bearing. No: Erica' s sign - Neurological Neuro grossly intact: Yes Cognition: Normal Orientation: AAOx4 Verdon Coma Scale Eye Opening: Spontaneous Verdon Coma Scale Verbal: Oriented Verdon Coma Scale Motor: Obeys Commands Mary Coma Scale Total: 15 Speech: Normal Motor strength normal: LUE, RUE, LLE, RLE Sensory: Normal - Psychological Associated symptoms: Normal affect, Normal mood - Skin Skin Temperature: Warm Skin Moisture: Dry Skin Color: Normal Course - Re-evaluation Re-evalutation: 12/20/16 14:08 Patient lab work showed chronic anemia patient has elevated white count 13 signs of urinary tract infection. Initially order straight catheter however a Alcantara catheter was inserted. Patient at this time now is tolerating p.o. requesting something to drink and eat states she feels better and wishes to be discharged home. Did discuss patient's presentation with her PCP Dr. baptiste who agrees with this patient is alert multiple antibiotic therefore I will give the patient doxycycline as review of the patient's most recent urinary cultures showed sensitivity to doxycycline. - Vital Signs Vital signs: Temp Pulse Resp BP Pulse Ox 98.9 F 100 30 H 133/63 H 99 12/20/16 09:14 12/19/16 23:49 12/20/16 09:04 12/20/16 09:04 12/20/16 09:04 - Laboratory Result Diagrams: 12/20/16 07:15 12/20/16 05:58 Laboratory results interpreted by me: 12/20/16 12/20/16 12/20/16 05:58 07:00 07:15 WBC 13.7 H RBC 3.16 L Hgb 8.0 L Hct 25.5 L MCH 25.2 L MCHC 31.2 L RDW 18.4 H Absolute Neutrophils 10.6 H Carbon Dioxide 21 L Est GFR (Non-Af Amer) 53 L Glucose 125 H Albumin 3.3 L Urine Protein 30 H Urine Ketones 20 H Urine Blood MODERATE H Urine Nitrite POSITIVE H Ur Leukocyte Esterase LARGE H Discharge - Discharge Clinical Impression: Peripheral edema UTI (urinary tract infection) Qualifiers: Urinary tract infection type: site unspecified Hematuria presence: without hematuria Qualified Code(s): N39.0 - Urinary tract infection, site not specified Nausea & vomiting Qualifiers: Vomiting type: unspecified Vomiting Intractability: unspecified Qualified Code( s): R11.2 - Nausea with vomiting, unspecified Chronic kidney disease Qualifiers: Chronic kidney disease stage: unspecified stage Qualified Code(s): N18.9 - Chronic kidney disease, unspecified Condition: Good Disposition: HOME, SELF-CARE Instructions: Urinary Tract Infection ([facility]), Edema, Peripheral ([facility]) Additional Instructions: Please increase your Lasix dose to twice a day for the next 4 days after the 24th get back to once a day. Please make sure that you are taking other medications as prescribed. Your urinalysis does show signs of significant infection. At this time we will start you on antibiotic of doxycycline. Your urine will be sent for culture. Please make sure to follow-up with your primary care physician Prescriptions: Doxycycline Hyclate 100 mg PO BID #20 capsule Ondansetron [Zofran Odt 4 mg Tablet] 1 - 2 tab PO Q4H PRN #20 tab.rapdis PRN Reason: For Nausea/Vomiting Referrals: JASSON BAPTISTE MD [Primary Care Provider] - 12/28/16
[2016-12-20 09:33] VITALS: BP 133/63
--- NOTE | 2016-12-20 12:44 | EKG REPORT ---
SEVERITY:- BORDERLINE ECG - SINUS TACHYCARDIA BORDERLINE T ABNORMALITIES, INFERIOR LEADS : Confirmed by: Guillermina King MD 20-Dec-2016 12:42:48
== END 2016-12-20 10:01 | disposition home or self-care (01) ==
LOC: ER 23:34
DX: N39.0 Urinary tract infection, site not specified (principal); R11.2 Nausea with vomiting, unspecified; N18.9 Chronic kidney disease, unspecified; R60.0 Localized edema; R11.10 Vomiting, unspecified; R42 Dizziness and giddiness; M79.89 Other specified soft tissue disorders
CPT/HCPCS: 93005; 99281; 99284; 51702; 36415; 87040; 87086; 82553; 82550; 83735; 85025; 87077; 87088; 80053; 81001; 84484; 87186; 71020; 93010; A9270 ×6

== ENCOUNTER 2016-12-20 11:46 | Emergency (ER) | payer MEDICARE, MEDICAID ==
[2016-12-20 12:20] VITALS: BP 126/58
[2016-12-20] MEDS ORDERED: OXYCODONE-ACETAMINOPHEN 5-325 MG TABLET PO ONE (12:54)
[2016-12-20] MEDS ORDERED: LEVOFLOXACIN 750 MG TABLET PO ONE (12:54)
[2016-12-20] MEDS ORDERED: ACETAMINOPHEN 325 MG TABLET PO ONE (12:56)
--- NOTE | 2016-12-20 12:57 | ER Document Report ---
ED Medical Screen (RME) - General Chief Complaint: Shortness Of Breath Stated Complaint: DIFFICULTY BREATHING Time Seen by Provider: 12/20/16 12:44 Notes: 56-year-old diabetic female was seen in the emergency room this morning and diagnosed with urinary tract infection, peripheral edema, and nausea and vomiting. She was discharged on doxycycline. She was discharged about 4 hours ago. By EMS wheezing, short of breath, and 103 fever. Pulse ox of 90%. She received breathing treatments from EMS and states her breathing is much better, but she is having considerable low back pain since being discharged. I have greeted and performed a rapid initial assessment of this patient. A comprehensive ED assessment and evaluation of the patient, analysis of test results and completion of the medical decision making process will be conducted by additional ED providers. TRAVEL OUTSIDE OF THE [place] IN LAST 30 DAYS: No - Related Data Allergies/Adverse Reactions: cephalexin monohydrate [From Keflex] Allergy (Unknown, Verified 12/20/16 12:11) codeine [Codeine] Allergy (Unknown, Verified 12/20/16 12:11) dicyclomine HCl [From Bentyl] Allergy (Unknown, Verified 12/20/16 12:11) hydrocodone bitartrate [From Vicodin] Allergy (Unknown, Verified 12/20/16 12:11) meloxicam [From Mobic] Allergy (Unknown, Verified 12/20/16 12:11) meperidine HCl [From Demerol (PF)] Allergy (Unknown, Verified 12/20/16 12:11) morphine [Morphine] Allergy (Unknown, Verified 12/20/16 12:11) naproxen sodium [From Naprelan CR Dosepak] Allergy (Unknown, Verified 12/20/16 12:11) nitrofurantoin [From Macrobid] Allergy (Unknown, Verified 12/20/16 12:11) pantoprazole sodium [From Protonix] Allergy (Unknown, Verified 12/20/16 12:11) Penicillins Allergy (Unknown, Verified 12/20/16 12:11) Sulfa (Sulfonamide Antibiotics) Allergy (Unknown, Verified 12/20/16 12:11) tramadol HCl [From Ultracet] Allergy (Unknown, Verified 12/20/16 12:11) lamotrigine [From Lamictal] Allergy (Verified 12/20/16 12:11) rash Past Medical History - Social History Family history: Reviewed & Not Pertinent - Past Medical History Cardiac Medical History: Reports: Hx Congestive Heart Failure, Hx Coronary Artery Disease, Hx Heart Attack - 2 stents, Hx Hypercholesterolemia, Hx Hypertension, Hx Peripheral Vascular Disease Denies: Hx Heart Murmur Pulmonary Medical History: Reports: Hx Asthma, Hx Bronchitis, Hx COPD - Oxygen use at home, inhaler., Hx Sleep Apnea Denies: Hx Pneumonia, Hx Respiratory Failure, Hx Tuberculosis Neurological Medical History: Reports: Hx Migraine. Denies: Hx Cerebrovascular Accident, Hx Seizures Endocrine Medical History: Reports: Hx Diabetes Mellitus Type 2, Hx Hyperthyroidism, Hx Hypothyroidism Renal/ Medical History: Reports: Hx End Stage Renal Disease - Stage IV, Hx Renal Insufficiency. Denies: Hx Peritoneal Dialysis Malignancy Medical History: GI Medical History: Reports: Hx Gastroesophageal Reflux Disease Musculoskeltal Medical History: Reports Hx Arthritis, Reports Hx Fibromyalgia, Reports Hx Muscle Weakness Psychiatric Medical History: Reports: Hx Bipolar Disorder, Hx Depression, Hx Post Traumatic Stress Disorder, Hx Schizophrenia Traumatic Medical History: Infectious Medical History: Past Surgical History: Reports: Hx Cardiac Catheterization, Hx Section - x2, Hx Coronary Artery Bypass Graft, Hx Coronary Stent - x2, Hx Hysterectomy, Hx Orthopedic Surgery - christine knee surgery, christine feet surgery, Hx Tubal Ligation - Immunizations Hx Diphtheria, Pertussis, Tetanus Vaccination: Yes Physical Exam - Vital signs Vitals: Temp Pulse Resp BP Pulse Ox 103.0 F H 108 H 26 H 126/58 H 76 L 12/20/16 12:18 12/20/16 12:18 12/20/16 12:18 12/20/16 12:18 12/20/16 12:18 Course - Vital Signs Vital signs: Temp Pulse Resp BP Pulse Ox 103.0 F H 108 H 26 H 126/58 H 76 L 12/20/16 12:18 12/20/16 12:18 12/20/16 12:18 12/20/16 12:18 12/20/16 12:18
== END 2016-12-20 14:40 | disposition left against medical advice (07) ==
LOC: ER 11:46
DX: J44.9 Chronic obstructive pulmonary disease, unspecified (principal); R06.02 Shortness of breath; N39.0 Urinary tract infection, site not specified; R50.9 Fever, unspecified; R06.2 Wheezing; M54.5 Low back pain; E11.9 Type 2 diabetes mellitus without complications; I25.10 Atherosclerotic heart disease of native coronary artery without angina pectoris; I25.2 Old myocardial infarction; I10 Essential (primary) hypertension; Z88.1 Allergy status to other antibiotic agents; Z88.5 Allergy status to narcotic agent; Z88.8 Allergy status to other drugs, medicaments and biological substances; Z88.0 Allergy status to penicillin; Z88.2 Allergy status to sulfonamides; Z95.1 Presence of aortocoronary bypass graft; Z98.61 Coronary angioplasty status; Z53.20 Procedure and treatment not carried out because of patient's decision for unspecified reasons
CPT/HCPCS: 99281; A9270 ×3

== ENCOUNTER 2016-12-30 09:03 | Emergency (ER) | payer MEDICARE, MEDICAID ==
--- NOTE | 2016-12-30 10:16 | ER Document Report ---
ED General - General Chief Complaint: Leg Swelling Stated Complaint: LEGS SWELLING Time Seen by Provider: 12/30/16 09:07 TRAVEL OUTSIDE OF THE [place] IN LAST 30 DAYS: No - Related Data Allergies/Adverse Reactions: cephalexin monohydrate [From Keflex] Allergy (Unknown, Verified 12/20/16 12:11) codeine [Codeine] Allergy (Unknown, Verified 12/20/16 12:11) dicyclomine HCl [From Bentyl] Allergy (Unknown, Verified 12/20/16 12:11) hydrocodone bitartrate [From Vicodin] Allergy (Unknown, Verified 12/20/16 12:11) meloxicam [From Mobic] Allergy (Unknown, Verified 12/20/16 12:11) meperidine HCl [From Demerol (PF)] Allergy (Unknown, Verified 12/20/16 12:11) morphine [Morphine] Allergy (Unknown, Verified 12/20/16 12:11) naproxen sodium [From Naprelan CR Dosepak] Allergy (Unknown, Verified 12/20/16 12:11) nitrofurantoin [From Macrobid] Allergy (Unknown, Verified 12/20/16 12:11) pantoprazole sodium [From Protonix] Allergy (Unknown, Verified 12/20/16 12:11) Penicillins Allergy (Unknown, Verified 12/20/16 12:11) Sulfa (Sulfonamide Antibiotics) Allergy (Unknown, Verified 12/20/16 12:11) tramadol HCl [From Ultracet] Allergy (Unknown, Verified 12/20/16 12:11) lamotrigine [From Lamictal] Allergy (Verified 12/20/16 12:11) rash Past Medical History - Social History Smoking Status: Former Smoker Chew tobacco use (# tins/day): No Frequency of alcohol use: None Drug Abuse: None Family History: None - Past Medical History Cardiac Medical History: Reports: Hx Congestive Heart Failure, Hx Coronary Artery Disease, Hx Heart Attack - 2 stents, Hx Hypercholesterolemia, Hx Hypertension, Hx Peripheral Vascular Disease Denies: Hx Heart Murmur Pulmonary Medical History: Reports: Hx Asthma, Hx Bronchitis, Hx COPD - Oxygen use at home, inhaler., Hx Sleep Apnea Denies: Hx Pneumonia, Hx Respiratory Failure, Hx Tuberculosis Neurological Medical History: Reports: Hx Migraine. Denies: Hx Cerebrovascular Accident, Hx Seizures Endocrine Medical History: Reports: Hx Diabetes Mellitus Type 2, Hx Hyperthyroidism, Hx Hypothyroidism Renal/ Medical History: Reports: Hx End Stage Renal Disease - Stage IV, Hx Renal Insufficiency. Denies: Hx Peritoneal Dialysis Malignancy Medical History: GI Medical History: Reports: Hx Gastroesophageal Reflux Disease Musculoskeltal Medical History: Reports Hx Arthritis, Reports Hx Fibromyalgia, Reports Hx Muscle Weakness Psychiatric Medical History: Reports: Hx Bipolar Disorder, Hx Depression, Hx Post Traumatic Stress Disorder, Hx Schizophrenia Traumatic Medical History: Infectious Medical History: Past Surgical History: Reports: Hx Cardiac Catheterization, Hx Section - x2, Hx Coronary Artery Bypass Graft, Hx Coronary Stent - x2, Hx Hysterectomy, Hx Orthopedic Surgery - christine knee surgery, christine feet surgery, Hx Tubal Ligation - Immunizations Hx Diphtheria, Pertussis, Tetanus Vaccination: Yes Hx Pneumococcal Vaccination: 04/02/13 Physical Exam - Vital signs Vitals: Temp Pulse Resp BP Pulse Ox 98.2 F 92 22 H 115/56 L 100 12/30/16 09:20 12/30/16 09:20 12/30/16 09:20 12/30/16 09:20 12/30/16 09:20 Course - Vital Signs Vital signs: Temp Pulse Resp BP Pulse Ox 98.2 F 92 10 L 121/60 100 12/30/16 09:20 12/30/16 09:20 12/30/16 11:00 12/30/16 12:01 12/30/16 12:01 - Laboratory Result Diagrams: 12/30/16 10:46 12/30/16 10:46 Laboratory results interpreted by me: 12/30/16 12/30/16 10:46 10:46 RBC 2.68 L Hgb 6.8 L Hct 21.5 L MCH 25.4 L MCHC 31.6 L RDW 19.9 H Potassium 5.3 H Creatinine 1.39 H Est GFR ( Amer) 47 L Est GFR (Non-Af Amer) 39 L Glucose 123 H Alkaline Phosphatase 146 H Albumin 3.2 L Discharge - Discharge Clinical Impression: Peripheral edema, Chronic venous stasis dermatitis Anemia Qualifiers: Anemia type: unspecified type Qualified Code(s): D64.9 - Anemia, unspecified [id number] renal failure Qualifiers: Acute renal failure type: unspecified Chronic kidney disease stage: stage 5, not on chronic dialysis Qualified Code(s): N17.9 - Acute kidney failure, unspecified Condition: Fair Disposition: HOME, SELF-CARE Instructions: Edema, Peripheral ([facility]) Referrals: JASSON MARTINI MD [Primary Care Provider] - Follow up tomorrow
[2016-12-30 11:08] LABS: ABSOLUTE EOSINOPHILS # (AUTO) 0.2 10^3/uL (0.0-0.6); ABSOLUTE MONOCYTES (AUTO) 0.6 10^3/uL (0.1-1.4); ABSOLUTE NEUT (AUTO) 5.5 10^3/uL (1.7-8.2); BASOPHILS % (AUTO) 0.5 % (0-2); HEMATOCRIT 21.5 % (36.0-47.0); HGB HCT DIFFERENCE -1.1; LYMPHOCYTES % (AUTO) 24.2 % (13-45); MEAN CORPUSCULAR HEMOGLOBIN 25.4 pg (27.0-33.4); MEAN CORPUSCULAR HGB CONC 31.6 g/dL (32.0-36.0); MEAN CORPUSCULAR VOLUME 80 fl (80-97); RED BLOOD COUNT 2.68 10^6/uL (3.72-5.28); RED CELL DISTRIBUTION WIDTH 19.9 % (11.5-14.0); SEGMENTED NEUTROPHILS % (AUTO) 66.3 % (42-78); WHITE BLOOD COUNT 8.3 10^3/uL (4.0-10.5)
[2016-12-30 11:19] LABS: ALANINE AMINOTRANSFERASE 23 U/L (9-52); ALBUMIN 3.2 g/dL (3.5-5.0); ALKALINE PHOSPHATASE 146 U/L (38-126); ANION GAP 9 (5-19); ASPARTATE AMINO TRANSFERASE 16 U/L (14-36); BILIRUBIN,DIRECT 0.3 mg/dL (0.0-0.4); BILIRUBIN,TOTAL 0.3 mg/dL (0.2-1.3); BLOOD UREA NITROGEN 18 mg/dL (7-20); CARBON DIOXIDE 28 mmol/L (22-30); CHLORIDE 104 mmol/L (98-107); CREATININE RESULT 1.39 mg/dL (0.52-1.25); GLUCOSE 123 mg/dL (75-110); HEMOGLOBIN 6.8 g/dL (12.0-15.5); POTASSIUM 5.3 mmol/L (3.6-5.0); SODIUM 140.9 mmol/L (137-145); TOTAL PROTEIN 6.5 g/dL (6.3-8.2)
--- NOTE | 2016-12-30 12:11 | RADIOLOGY REPORT (SQ) ---
EXAM DESCRIPTION: CHEST PA/LAT COMPLETED DATE/TIME: 12/30/2016 11:48 am REASON FOR STUDY: edema COMPARISON: 12/20/2016 EXAM PARAMETERS: NUMBER OF VIEWS: two views TECHNIQUE: Digital Frontal and Lateral radiographic views of the chest acquired. RADIATION DOSE: NA LIMITATIONS: none FINDINGS: LUNGS AND PLEURA: Pulmonary vascular congestion is present. There is no infiltrate or eff usion. MEDIASTINUM AND HILAR STRUCTURES: No masses or contour abnormalities. HEART AND VASCULAR STRUCTURES: Heart size is borderline. There is pulmonary vascular congestion but no CHF. BONES: No acute findings. HARDWARE: Injection port on the right. OTHER: No other significant finding. IMPRESSION: Borderline cardiomegaly with pulmonary vascular congestion but no celina CHF. TECHNICAL DOCUMENTATION: JOB ID: [id number] [employer]- All Rights Reserved
[2016-12-30 12:14] VITALS: BP 121/60
[2016-12-30] MEDS ORDERED: NORMAL SALINE 250 ML IV PRN ×2 (13:00)
[2016-12-30] MEDS ORDERED: FUROSEMIDE INJ/PF 40 MG/4 ML SDV IV ONE (14:15)
== END 2016-12-30 13:58 | disposition home or self-care (01) ==
LOC: ER 09:03
DX: D64.9 Anemia, unspecified (principal); I12.9 Hypertensive chronic kidney disease with stage 1 through stage 4 chronic kidney disease, or unspecified chronic kidney disease; E11.22 Type 2 diabetes mellitus with diabetic chronic kidney disease; N18.5 Chronic kidney disease, stage 5; N17.9 Acute kidney failure, unspecified; R60.0 Localized edema; T50.1X6A Underdosing of loop [high-ceiling] diuretics, initial encounter; Z91.14 Patient's other noncompliance with medication regimen; E11.51 Type 2 diabetes mellitus with diabetic peripheral angiopathy without gangrene; I25.10 Atherosclerotic heart disease of native coronary artery without angina pectoris; I25.2 Old myocardial infarction; J44.9 Chronic obstructive pulmonary disease, unspecified; Z88.1 Allergy status to other antibiotic agents; Z88.5 Allergy status to narcotic agent; Z88.8 Allergy status to other drugs, medicaments and biological substances; Z88.0 Allergy status to penicillin; Z88.2 Allergy status to sulfonamides; Z87.891 Personal history of nicotine dependence; Z98.61 Coronary angioplasty status; Z95.1 Presence of aortocoronary bypass graft
CPT/HCPCS: 36415; 36430; 36591; 71020; 80053; 85025; 85027; 86850; 86900; 86901; 86920; 96374; 99285; J1940; P9016

== ENCOUNTER 2016-12-30 13:42 | Outpatient (CLI) | payer MEDICARE, MEDICAID ==
[~2016-12-30 13:42] MED LIST: ACETAMINOPHEN 325 MG TABLET PO PRN; DIPHENHYDRAMINE HCL 25 MG CAPSULE PO PRN; FUROSEMIDE INJ/PF 20 MG/2 ML SDV IV PRN
[2016-12-30] MEDS ORDERED: NORMAL SALINE 250 ML IV PRN (14:13)
[2016-12-30] MEDS ORDERED: FUROSEMIDE INJ/PF 40 MG/4 ML SDV IV PRN (14:43)
[2016-12-30 17:55] LABS: ABSOLUTE EOSINOPHILS # (AUTO) 0.2 10^3/uL (0.0-0.6); ABSOLUTE LYMPHOCYTES (AUTO) 2.1 10^3/uL (0.5-4.7); ABSOLUTE MONOCYTES (AUTO) 0.4 10^3/uL (0.1-1.4); ABSOLUTE NEUT (AUTO) 5.4 10^3/uL (1.7-8.2); BASOPHILS % (AUTO) 0.6 % (0-2); EOSINOPHILS % (AUTO) 2.6 % (0-6); HEMATOCRIT 24.1 % (36.0-47.0); HGB HCT DIFFERENCE -1.9; LYMPHOCYTES % (AUTO) 25.5 % (13-45); MEAN CORPUSCULAR HEMOGLOBIN 24.9 pg (27.0-33.4); MEAN CORPUSCULAR HGB CONC 30.8 g/dL (32.0-36.0); MEAN CORPUSCULAR VOLUME 81 fl (80-97); MONOCYTES % (AUTO) 5.3 % (3-13); RED BLOOD COUNT 2.97 10^6/uL (3.72-5.28); WHITE BLOOD COUNT 8.1 10^3/uL (4.0-10.5)
[2016-12-30 17:57] LABS: HEMOGLOBIN 7.4 g/dL (12.0-15.5)
[2016-12-31 03:24] VITALS: BP 110/65
[2016-12-31 06:05] LABS: HEMATOCRIT 29.5 % (36.0-47.0); HEMOGLOBIN 9.3 g/dL (12.0-15.5); HGB HCT DIFFERENCE -1.6; MEAN CORPUSCULAR HGB CONC 31.4 g/dL (32.0-36.0); MEAN CORPUSCULAR VOLUME 83 fl (80-97); RED BLOOD COUNT 3.57 10^6/uL (3.72-5.28); RED CELL DISTRIBUTION WIDTH 18.7 % (11.5-14.0); WHITE BLOOD COUNT 9.6 10^3/uL (4.0-10.5)
== END 2016-12-31 05:34 | disposition home or self-care (01) ==
LOC: II 13:42 → 2N 13:51 → II 12-31 05:34
PROVIDERS: ATTEND Internal Medicine Medical Oncology
PROC: 30233N1 Transfusion of Nonautologous Red Blood Cells into Peripheral Vein, Percutaneous Approach (ICD-10-PCS; principal; 2016-12-30)
PROC: 30233N1 Transfusion of Nonautologous Red Blood Cells into Peripheral Vein, Percutaneous Approach (ICD-10-PCS; 2016-12-31)
DX: D64.9 Anemia, unspecified (principal)
CPT/HCPCS: 96374; 86900; 86901; 36415; 36430; 86850; 85025; 85027; 86920; P9016; A9270 ×2; J1940

== ENCOUNTER 2017-01-17 10:16 | Inpatient (IN) | payer MEDICARE, MEDICAID ==
--- NOTE | 2017-01-17 10:37 | ER Document Report ---
ED General - General Stated Complaint: CHEST PAIN Time Seen by Provider: 01/17/17 10:30 Mode of Arrival: Stretcher Information source: Emergency Med Personnel Cannot obtain history due to: Altered mental status Notes: 56-year-old female with history of diabetes on multiple medications including trazodone presents with altered mental status and fall. Apparently social media intern contacted EMS as they found the patient on the ground when they went by for diabetic teaching. She is poorly responsive to me with a primary name but will not give further history. EMS felt she had some left wrist pain as she reported "out" when they moved her left arm. I have medications reviewed that she can give no further history otherwise. Accucheck was elevated per EMS and usually they have gone there for that reason in the past. TRAVEL OUTSIDE OF THE [place] IN LAST 30 DAYS: No - Related Data Allergies/Adverse Reactions: cephalexin monohydrate [From Keflex] Allergy (Unknown, Verified 12/20/16 12:11) codeine [Codeine] Allergy (Unknown, Verified 12/20/16 12:11) dicyclomine HCl [From Bentyl] Allergy (Unknown, Verified 12/20/16 12:11) hydrocodone bitartrate [From Vicodin] Allergy (Unknown, Verified 12/20/16 12:11) meloxicam [From Mobic] Allergy (Unknown, Verified 12/20/16 12:11) meperidine HCl [From Demerol (PF)] Allergy (Unknown, Verified 12/20/16 12:11) morphine [Morphine] Allergy (Unknown, Verified 12/20/16 12:11) naproxen sodium [From Naprelan CR Dosepak] Allergy (Unknown, Verified 12/20/16 12:11) nitrofurantoin [From Macrobid] Allergy (Unknown, Verified 12/20/16 12:11) pantoprazole sodium [From Protonix] Allergy (Unknown, Verified 12/20/16 12:11) Penicillins Allergy (Unknown, Verified 12/20/16 12:11) Sulfa (Sulfonamide Antibiotics) Allergy (Unknown, Verified 12/20/16 12:11) tramadol HCl [From Ultracet] Allergy (Unknown, Verified 12/20/16 12:11) lamotrigine [From Lamictal] Allergy (Verified 12/20/16 12:11) rash Home Medications: Current Home Medications Amitriptyline HCl [Elavil 150 mg Tablet] 1 tab PO DAILY 01/17/17 [History] Aripiprazole [Abilify] 15 mg PO Q12 01/17/17 [History] Benztropine Mesylate [Cogentin 1 mg Tablet] 1 tab PO BID 01/17/17 [History] Bupropion HCl [Bupropion HCl Sr] 150 mg PO QHS 01/17/17 [History] Diazepam [Valium 5 mg Tablet] 5 mg PO QHS 01/17/17 [History] Duloxetine HCl [Cymbalta] 60 mg PO Q12 01/17/17 [History] Ferrous Sulfate [Feosol 325 mg Tablet] 325 mg PO BID 01/17/17 [History] Furosemide [Lasix] 40 mg PO Q12 01/17/17 [History] Gabapentin [Neurontin 300 mg Capsule] 300 mg PO Q8 01/17/17 [History] Levothyroxine Sodium [Synthroid 50 Mcg Tablet] 50 mcg PO DAILY 01/17/17 [History ] Lubiprostone [Amitiza 24 Mcg Capsule] 24 mcg PO Q12 01/17/17 [History] Magnesium Oxide [Mag-Ox 400 mg Tablet] 400 mg PO BID 01/17/17 [History] Naloxegol Oxalate [Movantik 25 mg Tablet] 25 mg PO QAM 01/17/17 [History] Olmesartan Medoxomil [Benicar] 20 mg PO DAILY 01/17/17 [History] Omeprazole 40 mg PO Q12 01/17/17 [History] Saxagliptin Hydrochloride [Onglyza] 2.5 mg PO DAILY 01/17/17 [History] Simvastatin [Zocor 20 mg Tablet] 20 mg PO QHS 01/17/17 [History] Trazodone HCl [Desyrel] 300 mg PO QHS 01/17/17 [History] Zolpidem Tartrate [Ambien] 10 mg PO HSP PRN 01/17/17 [History] Past Medical History - Social History Smoking Status: Unknown if Ever Smoked Family History: None - Past Medical History Cardiac Medical History: Reports: Hx Congestive Heart Failure, Hx Coronary Artery Disease, Hx Heart Attack - 2 stents, Hx Hypercholesterolemia, Hx Hypertension, Hx Peripheral Vascular Disease Denies: Hx Heart Murmur Pulmonary Medical History: Reports: Hx Asthma, Hx Bronchitis, Hx COPD - Oxygen use at home, inhaler., Hx Sleep Apnea Denies: Hx Pneumonia, Hx Respiratory Failure, Hx Tuberculosis Neurological Medical History: Reports: Hx Migraine. Denies: Hx Cerebrovascular Accident, Hx Seizures Endocrine Medical History: Reports: Hx Diabetes Mellitus Type 2, Hx Hyperthyroidism, Hx Hypothyroidism Renal/ Medical History: Reports: Hx End Stage Renal Disease - Stage IV, Hx Renal Insufficiency. Denies: Hx Peritoneal Dialysis Malignancy Medical History: GI Medical History: Reports: Hx Gastroesophageal Reflux Disease Musculoskeltal Medical History: Reports Hx Arthritis, Reports Hx Fibromyalgia, Reports Hx Muscle Weakness Psychiatric Medical History: Reports: Hx Bipolar Disorder, Hx Depression, Hx Post Traumatic Stress Disorder, Hx Schizophrenia Traumatic Medical History: Infectious Medical History: Past Surgical History: Reports: Hx Cardiac Catheterization, Hx Section - x2, Hx Coronary Artery Bypass Graft, Hx Coronary Stent - x2, Hx Hysterectomy, Hx Orthopedic Surgery - christine knee surgery, christine feet surgery, Hx Tubal Ligation - Immunizations Hx Diphtheria, Pertussis, Tetanus Vaccination: Yes Hx Pneumococcal Vaccination: 04/02/13 Review of Systems - Review of Systems -: Yes ROS unobtainable due to patient's medical condition Physical Exam - Vital signs Vitals: Resp 16 01/17/17 10:21 Interpretation: Hypotensive Notes: GENERAL: VS as per nursing doc. Well-appearing, well-nourished and in no acute distress but is hypoventilating maintaining her airway with gag reflex. HEAD: Atraumatic, normocephalic. EYES: Pupils equal round and reactive to light but sluggish at 4 mm, no deviation noted, sclera anicteric, no conjunctival injection or discharge. ENT: Nares patent, oropharynx clear without exudates, moist mucous membranes. NECK: No obvious pain with patient spontaneously moving her neck, without lymphadenopathy. LUNGS: Respirations 8, coarse but clear otherwise. HEART: Regular rate and rhythm without murmurs. ABDOMEN: Soft, non-tender BACK: No CVA tenderness. EXTREMITIES: Normal range of motion passively without obvious pain elicited. No gross deformity NEUROLOGICAL: Patient awakens to tactile stimuli will give me her name and quickly falls back asleep. She spontaneously moves all extremities but will not follow commands other than opening her eyes. PSYCH: Very somnolent SKIN: Warm, dry, normal turgor, no lesions noted. Course - Re-evaluation Re-evalutation: 01/17/17 14:54 Patient has remained fairly poorly responsive. She has been a very difficult stick for labs. I planned on having a PICC line placed that Dr. Gonzalez from nephrology preferred a central line trying to save the peripheral veins. We will consider this and measurement at the patient cannot give consent. She was in acute renal failure with a creatinine of 4.17 and GFR that has gone from approximately 40-13. Potassium is slightly elevated but I do not note significant abnormalities in the way of CO2. Chest x-ray is pending but I suspect she has some volume overload. 01/17/17 16:41 Chest x-ray did show some pulmonary vascular congestion. CT abdomen was negative. This was ordered as the patient appeared to be tender to palpation. White blood count was slightly elevated. She remained poorly responsive. With need for access and done emergently I placed a right internal jugular per procedure note. Chest x-ray is pending. Awaiting return call from internal medicine. - Vital Signs Vital signs: Temp Pulse Resp BP Pulse Ox 79 16 100/57 L 97 01/17/17 19:58 01/17/17 19:58 01/17/17 19:58 01/17/17 19:58 - Laboratory Result Diagrams: 01/17/17 12:37 01/17/17 12:37 Laboratory results interpreted by me: 01/17/17 01/17/17 01/17/17 12:37 12:37 16:45 WBC 14.7 H RBC 3.22 L Hgb 8.0 L Hct 25.6 L MCV 79 L D MCH 24.8 L MCHC 31.2 L RDW 20.5 H Seg Neutrophils % 78.5 H Lymphocytes % 10.6 L Absolute Neutrophils 11.5 H Sodium 136.9 L Potassium 5.6 H Chloride 96 L BUN 69 H Creatinine 4.17 H Est GFR ( Amer) 13 L Est GFR (Non-Af Amer) 11 L Glucose 145 H Magnesium 2.7 H Direct Bilirubin 0.6 H AST 73 H Alkaline Phosphatase 181 H Total Protein 8.6 H Urine Blood MODERATE H Ur Leukocyte Esterase SMALL H Salicylates < 1.0 L Acetaminophen < 10 L - EKG Interpretation by Me EKG shows normal: Sinus rhythm Rate: Normal Rhythm: NSR - Rate 100, sinus tachycardia, nonspecific ST-T wave flattening. No clear ischemia. QRS normal duration Procedures - Central Line Right Internal jugular Consent obtained: No - Emergenct Central line pre-insertion: Sterile PPE donned, Chloraprep applied, Sterile drapes applied, Other - Gown and mask after time out performed. Central line lumen type: Triple Anesthetic type: 1% Lidocaine mL's of anesthesia: 2 Ultrasound guided: Yes Line secured with sutures: Yes Central line post-insertion: Blood return from lumens, Biopatch applied, Sutured , Sterile dressing applied, Position confirmed w/ CXR Critical Care Note - Critical Care Note Total time excluding time spent on procedures (mins): 40 - 30 minutes critical care time for evaluation of diagnostic studies, imaging, consultation with various physicians/department Discharge - Discharge Clinical Impression: Acute renal failure, Altered mental status Admitting Provider: Aron [facility] Admitted: [facility]
--- NOTE | 2017-01-17 11:26 | RADIOLOGY REPORT (SQ) ---
EXAM DESCRIPTION: CT HEAD WITHOUT COMPLETED DATE/TIME: 01/17/2017 11:15 am REASON FOR STUDY: AMS COMPARISON: [address] brain exams since 2009, most recently 06/08/2015, 12/12/2016 TECHNIQUE: Axial images acquired through the brain without intravenous contrast. Images reviewed wi th bone, brain and subdural windows. Images stored on PACS. All CT scanners at this facility use dose modulation, iterative reconstruction, and/or weight based d osing when appropriate to reduce radiation dose to as low as reasonably achievable (ALARA). [facility]: Dose Right [facility]: CareDose [facility]: Dose Right [facility]: Teradose 4D [facility]: [employer] RADIATION DOSE: Up-to-date CT equipment and radiation dose reduction techniques were employed. CTDIv ol: 64.6 mGy. DLP: 2326 mGy-cm. mGy. LIMITATIONS: Motion artifact, patient scanned twice FINDINGS: Study is significantly degraded by patient motion artifact. On the few images without motion, there is no gross CT evidence of large territory acute ischemic wm nge, acute intracranial hemorrhage, mass effect, or midline shift. Paranasal sinuses, mastoid air cells clear. IMPRESSION: Very limited negative study TECHNICAL DOCUMENTATION: JOB ID: [id number] Quality ID # [id number]: Final reports with documentation of one or more dose reduction techniques (e.g., Au tomated exposure control, adjustment of the mA and/or kV according to patient size, use of iterative reconstruction technique) 2010 [employer] All Rights Reserved
[2017-01-17 12:54] LABS: ABSOLUTE BASOPHILS # (AUTO) 0.1 10^3/uL (0.0-0.2); ABSOLUTE EOSINOPHILS # (AUTO) 0.3 10^3/uL (0.0-0.6); ABSOLUTE LYMPHOCYTES (AUTO) 1.5 10^3/uL (0.5-4.7); ABSOLUTE MONOCYTES (AUTO) 1.3 10^3/uL (0.1-1.4); ABSOLUTE NEUT (AUTO) 11.5 10^3/uL (1.7-8.2); BASOPHILS % (AUTO) 0.5 % (0-2); EOSINOPHILS % (AUTO) 1.8 % (0-6); HEMATOCRIT 25.6 % (36.0-47.0); HGB HCT DIFFERENCE -1.6; LYMPHOCYTES % (AUTO) 10.6 % (13-45); MEAN CORPUSCULAR HEMOGLOBIN 24.8 pg (27.0-33.4); MEAN CORPUSCULAR HGB CONC 31.2 g/dL (32.0-36.0); MONOCYTES % (AUTO) 8.6 % (3-13); RED BLOOD COUNT 3.22 10^6/uL (3.72-5.28); RED CELL DISTRIBUTION WIDTH 20.5 % (11.5-14.0); SEGMENTED NEUTROPHILS % (AUTO) 78.5 % (42-78); WHITE BLOOD COUNT 14.7 10^3/uL (4.0-10.5)
[2017-01-17 13:02] LABS: ALANINE AMINOTRANSFERASE 26 U/L (9-52); ALBUMIN 4.1 g/dL (3.5-5.0); ALKALINE PHOSPHATASE 181 U/L (38-126); ANION GAP 12 (5-19); ASPARTATE AMINO TRANSFERASE 73 U/L (14-36); BILIRUBIN,DIRECT 0.6 mg/dL (0.0-0.4); BILIRUBIN,TOTAL 0.8 mg/dL (0.2-1.3); BLOOD UREA NITROGEN 69 mg/dL (7-20); CALCIUM 9.2 mg/dL (8.4-10.2); CARBON DIOXIDE 29 mmol/L (22-30); CHLORIDE 96 mmol/L (98-107); CREATININE RESULT 4.17 mg/dL (0.52-1.25); GLUCOSE 145 mg/dL (75-110); MAGNESIUM 2.7 mg/dL (1.6-2.3); POTASSIUM 5.6 mmol/L (3.6-5.0); SODIUM 136.9 mmol/L (137-145); TOTAL PROTEIN 8.6 g/dL (6.3-8.2)
[2017-01-17 13:03] LABS: ALCOHOL < 10 mg/dL (NONE DETECTED)
[2017-01-17 13:29] LABS: MEAN CORPUSCULAR VOLUME 79 fl (80-97)
[2017-01-17 14:11] LABS: VENOUS BLOOD PCO2 55.8 mmHg (35-63); VENOUS BLOOD PH 7.3 (7.30-7.42)
--- NOTE | 2017-01-17 15:17 | RADIOLOGY REPORT (SQ) ---
EXAM DESCRIPTION: CT ABD/PELVIS NO ORAL OR IV COMPLETED DATE/TIME: 01/17/2017 2:51 pm REASON FOR STUDY: Abd pain COMPARISON: 11/24/2015 TECHNIQUE: CT scan of the abdomen and pelvis performed without intravenous or oral contrast. Images reviewed with lung, soft tissue, and bone windows. Reconstructed coronal and sagittal MPR images revi ewed. All images stored on PACS. All CT scanners at this facility use dose modulation, iterative reconstruction, and/or weight based d osing when appropriate to reduce radiation dose to as low as reasonably achievable (ALARA). [facility]: Dose Right [facility]: CareDose [facility]: Dose Right [facility]: Teradose 4D [facility]: Smart [employer] RADIATION DOSE: Up-to-date CT equipment and radiation dose reduction techniques were employed. CTDIv ol: 29.9 mGy. DLP: 1655 mGy-cm.mGy. LIMITATIONS: Poor signal to noise related to body habitus and positioning. FINDINGS: LOWER CHEST: Chronic interstitial changes in the lung bases. NON-CONTRASTED LIVER, SPLEEN, ADRENALS: Evaluation limited by lack of IV contrast. No identified sign ificant masses. PANCREAS: Fatty replaced. No masses. No peripancreatic inflammatory changes. GALLBLADDER: No identified stones by CT criteria. No inflammatory changes to suggest cholecystitis. RIGHT KIDNEY AND URETER: No suspicious masses. Assessment limited by lack of IV contrast. No signif icant calcifications. No hydronephrosis or hydroureter. LEFT KIDNEY AND URETER: No suspicious masses. Assessment limited by lack of IV contrast. No signifi cant calcifications. No hydronephrosis or hydroureter. AORTA AND RETROPERITONEUM: No aneurysm. No retroperitoneal masses or adenopathy. BOWEL AND PERITONEAL CAVITY: Moderate amount of fecal material in the proximal colon. No obvious mas ses or inflammatory changes. No free fluid. APPENDIX: Normal. PELVIS, BLADDER, AND ABDOMINAL WALL:No abnormal masses. No free fluid. Bladder normal. Alcantara cathete r in the bladder. BONES: No significant findings. OTHER: No other significant finding. IMPRESSION: No acute abnormality in the abdomen or pelvis. TECHNICAL DOCUMENTATION: JOB ID: [id number] Quality ID # [id number]: Final reports with documentation of one or more dose reduction techniques (e.g., Au tomated exposure control, adjustment of the mA and/or kV according to patient size, use of iterative reconstruction technique) 2010 [employer]- All Rights Reserved
--- NOTE | 2017-01-17 15:37 | RADIOLOGY REPORT (SQ) ---
EXAM DESCRIPTION: CHEST SINGLE VIEW COMPLETED DATE/TIME: 01/17/2017 3:17 pm REASON FOR STUDY: AMS COMPARISON: 12/30/2016 EXAM PARAMETERS: NUMBER OF VIEWS: One view. TECHNIQUE: Single frontal radiographic view of the chest acquired. RADIATION DOSE: NA LIMITATIONS: Poor positioning and poor inspiration. . FINDINGS: LUNGS AND PLEURA: No opacities, masses or pneumothorax. No pleural effusion. MEDIASTINUM AND HILAR STRUCTURES: No masses. Contour normal. HEART AND VASCULAR STRUCTURES: Mild cardiomegaly. Mild vascular congestion with improvement since pr ior study. BONES: No acute findings. HARDWARE: Right jugular catheter. OTHER: No other significant finding. IMPRESSION: Mild cardiomegaly and mild vascular congestion. TECHNICAL DOCUMENTATION: JOB ID: [id number]
[2017-01-17 17:03] LABS: APPEARANCE,URINE SLIGHTLY-CLOUDY; BILIRUBIN,URINE NEGATIVE (NEGATIVE); GLUCOSE, URINE NEGATIVE (NEGATIVE); KETONES,URINE NEGATIVE (NEGATIVE); LEUKOCYTE ESTERASE,URINE SMALL (NEGATIVE); NITRITE,URINE NEGATIVE (NEGATIVE); PROTEIN,URINE NEGATIVE (NEGATIVE); URINE SPECIFIC GRAVITY 1.008; UROBILINOGEN,URINE NEGATIVE mg/dL (<2.0)
--- NOTE | 2017-01-17 17:04 | RADIOLOGY REPORT (SQ) ---
EXAM DESCRIPTION: CHEST SINGLE VIEW COMPLETED DATE/TIME: 01/17/2017 4:47 pm REASON FOR STUDY: Post Line placement COMPARISON: Chest films 01/17/2017, 12/30/2016 EXAM PARAMETERS: NUMBER OF VIEWS: One view. TECHNIQUE: Single frontal radiographic view of the chest acquired. RADIATION DOSE: NA LIMITATIONS: Portable film, obese patient FINDINGS: LUNGS AND PLEURA: Pulmonary vascular congestion. Mild perihilar pulmonary edema may be pr esent. No pleural effusions. No pneumothorax. MEDIASTINUM AND HILAR STRUCTURES: No masses. Contour normal. HEART AND VASCULAR STRUCTURES: Stable cardiomegaly BONES: No acute findings. HARDWARE: New right jugular central line tip in the superior vena cava. Pre-existing right permanent central line tip in the superior vena cava/ upper right atrium OTHER: No other significant finding. IMPRESSION: No pneumothorax post right jugular central line placement with the tip in the superior v charles cava Pulmonary vascular congestion. Mild pulmonary edema could not be excluded. TECHNICAL DOCUMENTATION: JOB ID: [id number]
[2017-01-17 17:18] LABS: URINE BARBITURATES SCREEN NEGATIVE; URINE METHADONE SCREEN NEGATIVE; URINE OPIATES LOW NEGATIVE; URINE PHENCYCLIDINE SCREEN NEGATIVE
--- NOTE | 2017-01-17 19:52 | EKG REPORT ---
SEVERITY:- NORMAL ECG - SINUS RHYTHM : Confirmed by: Maurice Nieto 17-Jan-2017 19:51:33
[2017-01-17] MEDS ORDERED: DEXTROSE 50%-WATER 25 GM/50 ML DISP.SYRIN IV PRN ×2 (19:53)
[2017-01-17] MEDS ORDERED: GLUCAGON,HUMAN RECOMB 1 MG INJ IM PRN (19:53)
[2017-01-17] MEDS ORDERED: DEXTROSE 40% GEL 15 GM TUBE PO PRN ×2 (19:53)
--- NOTE | 2017-01-17 20:10 | RADIOLOGY REPORT (SQ) ---
EXAM DESCRIPTION: TOE RIGHT COMPLETED DATE/TIME: 01/17/2017 8:00 pm REASON FOR STUDY: Pain and swelling right toe COMPARISON: None. NUMBER OF VIEWS: Three views. TECHNIQUE: AP, lateral, and oblique images acquired of the right second toe. LIMITATIONS: None. FINDINGS: MINERALIZATION: Bony structures are osteopenic BONES: No acute fracture dislocation. There a loss of the bony cortex involving the distal tuft. Lyt ic areas identified at the level of the distal end of the distal phalanx of the 2nd digit. The appea so is suspicious for bony involvement by osteomyelitis. JOINTS: No erosions. No jenae-articular osteopenia. No chondrocalcinosis. SOFT TISSUES: There is soft tissue swelling and air in the soft tissues consistent with an infectious process. OTHER: No other significant finding. IMPRESSION: Findings consistent with osteomyelitis involving the distal phalanx of the 2nd digit wit h associated soft tissue swelling and air in the soft tissues consistent with an infectious process. COMMENT: SITE OF TRAUMA/COMPLAINT MARKED/STAMP COMPLETED: No TECHNICAL DOCUMENTATION: JOB ID: [id number] [employer]- All Rights Reserved
[2017-01-17 22:06] LABS: PROTHROMBIN TIME 14.7 SEC (11.4-15.4)
[2017-01-17 22:31] LABS: CREATINE KINASE MB 1.81 ng/mL (<4.55)
[2017-01-17 22:34] LABS: TROPONIN I < 0.012 ng/mL
[2017-01-17] MEDS: CLINDAMYCIN 600 MG/D5W RTU 600 MG/50 ML RTUPB IV SCH (22:53)
[2017-01-17] MEDS: HEPARIN SOD (PORCINE) 5,000 UNIT/ML 1 ML SYRINGE SUBCUT SCH (22:54)
[2017-01-17] MEDS: DOXYCYCLINE HYCLATE 100 MG in DEXTROSE 5%-WATER 250 ML IV SCH (23:11)
[2017-01-18] MEDS: NORMAL SALINE 1000 ML 1,000 ML IV PRN (04:51)
[2017-01-18] MEDS: CLINDAMYCIN 600 MG/D5W RTU 600 MG/50 ML RTUPB IV SCH ×3 (04:53→20:27)
[2017-01-18] MEDS: HEPARIN SOD (PORCINE) 5,000 UNIT/ML 1 ML SYRINGE SUBCUT SCH ×3 (06:10→23:07)
[2017-01-18] MEDS: LANSOPRAZOLE 30 MG TAB.RAP.DR PO SCH (06:17)
[2017-01-18 08:21] LABS: ABSOLUTE EOSINOPHILS # (AUTO) 0.4 10^3/uL (0.0-0.6); ABSOLUTE LYMPHOCYTES (AUTO) 1.6 10^3/uL (0.5-4.7); ABSOLUTE MONOCYTES (AUTO) 0.9 10^3/uL (0.1-1.4); ABSOLUTE NEUT (AUTO) 7.2 10^3/uL (1.7-8.2); BASOPHILS % (AUTO) 0.3 % (0-2); EOSINOPHILS % (AUTO) 3.5 % (0-6); HEMATOCRIT 21.8 % (36.0-47.0); HGB HCT DIFFERENCE -1.1; LYMPHOCYTES % (AUTO) 16.2 % (13-45); MEAN CORPUSCULAR HEMOGLOBIN 25.3 pg (27.0-33.4); MEAN CORPUSCULAR HGB CONC 31.6 g/dL (32.0-36.0); MEAN CORPUSCULAR VOLUME 80 fl (80-97); MONOCYTES % (AUTO) 8.7 % (3-13); RED BLOOD COUNT 2.72 10^6/uL (3.72-5.28); RED CELL DISTRIBUTION WIDTH 19.9 % (11.5-14.0); SEGMENTED NEUTROPHILS % (AUTO) 71.3 % (42-78); WHITE BLOOD COUNT 10.1 10^3/uL (4.0-10.5)
[2017-01-18 08:26] LABS: HEMOGLOBIN 6.9 g/dL (12.0-15.5)
[2017-01-18 08:42] LABS: ALANINE AMINOTRANSFERASE 32 U/L (9-52); ALBUMIN 3.1 g/dL (3.5-5.0); ALKALINE PHOSPHATASE 145 U/L (38-126); ANION GAP 12 (5-19); ASPARTATE AMINO TRANSFERASE 47 U/L (14-36); BILIRUBIN,DIRECT 0.5 mg/dL (0.0-0.4); BILIRUBIN,TOTAL 0.5 mg/dL (0.2-1.3); BLOOD UREA NITROGEN 62 mg/dL (7-20); CALCIUM 8.6 mg/dL (8.4-10.2); CARBON DIOXIDE 27 mmol/L (22-30); CHLORIDE 100 mmol/L (98-107); CREATININE RESULT 4.17 mg/dL (0.52-1.25); GLUCOSE 106 mg/dL (75-110); MAGNESIUM 2.6 mg/dL (1.6-2.3); PHOSPHORUS 7.3 mg/dL (2.5-4.5); POTASSIUM 5.4 mmol/L (3.6-5.0); SODIUM 138.5 mmol/L (137-145); TOTAL PROTEIN 6.7 g/dL (6.3-8.2)
[2017-01-18] MEDS ORDERED: NORMAL SALINE 250 ML IV PRN (09:17)
[2017-01-18] MEDS: DOXYCYCLINE HYCLATE 100 MG in DEXTROSE 5%-WATER 250 ML IV SCH ×2 (11:08→23:06)
--- NOTE | 2017-01-18 20:07 | PDOC H&P ---
History of Present Illness Admission Date/PCP: 01/17/17 19:50 JASSON MARTINI History of Present Illness: SANTOS NAVARRO is a 56 year old female known to my practice who was brought to the ED by EMS after she was found on the floor at home by visiting social service personnel. Patient claimed that she fell a day prior to presentation and was not able to get off the floor. Social service personnel reported that she was minimally responsive verbally at the time of her discovery at home. She did respond to pain in left upper extremity during attempt to get her off the floor by the EMS personnel. Her initial evaluation in the ED was remarkable for acute worsening of her renal function, hypotension, and altered mental status with inability to contribute meaningfully to her medical history. After initial IV fluid infusion there was some improvement in her alertness and she was able to narrate above event of fall but not the process of her fall at home. Past Medical History Cardiac Medical History: Reports: Congestive Heart Failure, Coronary Artery Disease, Myocardial Infarction - 2 stents, Hyperlipidema, Hypertension, Peripheral Vascular Disease Denies: Heart Murmur Pulmonary Medical History: Reports: Asthma, Bronchitis, Chronic Obstructive Pulmonary Disease (COPD) - Oxygen use at home, inhaler., Sleep Apnea Denies: Pneumonia, Respiratory Failure, Tuberculosis Neurological Medical History: Reports: Migraine Denies: Seizures Endocrine Medical History: Reports: Diabetes Mellitus Type 2, Hyperthyroidism, Hypothyroidism Renal/ Medical History: Reports: End Stage Renal Disease - Stage IV Malignancy Medical History: GI Medical History: Reports: Gastroesophageal Reflux Disease Musculoskeltal Medical History: Reports: Arthritis, Fibromyalgia Psychiatric Medical History: Reports: Bipolar Disorder, Depression, Post Traumatic Stress Disorder Hematology: Reports: Anemia - procrit weekly Denies: Hemophilia, Sickle Cell Disease, Bleeding Tendencies Infectious Medical History: Past Surgical History Past Surgical History: Reports: Cardiac Catheterization, Section - x2, Coronary Artery Bypass Graft, Coronary Stent - x2, Hysterectomy, Orthopedic Surgery - christine knee surgery, christine feet surgery, Tubal Ligation Denies: Amputation Social History Smoking Status: Never Smoker Frequency of Alcohol Use: None Hx Recreational Drug Use: No Drugs: None Hx Prescription Drug Abuse: Yes - Advance Directive Resuscitation Status: Full Code Family History Family History: None Parental Family History Reviewed: Yes Children Family History Reviewed: Yes Sibling(s) Family History Reviewed.: Yes Medication/Allergy Home Medications: Amitriptyline HCl [Elavil 150 mg Tablet] 1 tab PO DAILY 01/17/17 Aripiprazole [Abilify] 15 mg PO Q12 01/17/17 Benztropine Mesylate [Cogentin 1 mg Tablet] 1 tab PO BID 01/17/17 Bupropion HCl [Bupropion HCl Sr] 150 mg PO QHS 01/17/17 Diazepam [Valium 5 mg Tablet] 5 mg PO QHS 01/17/17 Duloxetine HCl [Cymbalta] 60 mg PO Q12 01/17/17 Ferrous Sulfate [Feosol 325 mg Tablet] 325 mg PO BID 01/17/17 Furosemide [Lasix] 40 mg PO Q12 01/17/17 Gabapentin [Neurontin 300 mg Capsule] 300 mg PO Q8 01/17/17 Levothyroxine Sodium [Synthroid 50 Mcg Tablet] 50 mcg PO DAILY 01/17/17 Lubiprostone [Amitiza 24 Mcg Capsule] 24 mcg PO Q12 01/17/17 Magnesium Oxide [Mag-Ox 400 mg Tablet] 400 mg PO BID 01/17/17 Naloxegol Oxalate [Movantik 25 mg Tablet] 25 mg PO QAM 01/17/17 Olmesartan Medoxomil [Benicar] 20 mg PO DAILY 01/17/17 Omeprazole 40 mg PO Q12 01/17/17 Saxagliptin Hydrochloride [Onglyza] 2.5 mg PO DAILY 01/17/17 Simvastatin [Zocor 20 mg Tablet] 20 mg PO QHS 01/17/17 Trazodone HCl [Desyrel] 300 mg PO QHS 01/17/17 Zolpidem Tartrate [Ambien] 10 mg PO HSP PRN 01/17/17 Allergies/Adverse Reactions: cephalexin monohydrate [From Keflex] Allergy (Unknown, Verified 12/20/16 12:11) codeine [Codeine] Allergy (Unknown, Verified 12/20/16 12:11) dicyclomine HCl [From Bentyl] Allergy (Unknown, Verified 12/20/16 12:11) hydrocodone bitartrate [From Vicodin] Allergy (Unknown, Verified 12/20/16 12:11) meloxicam [From Mobic] Allergy (Unknown, Verified 12/20/16 12:11) meperidine HCl [From Demerol (PF)] Allergy (Unknown, Verified 12/20/16 12:11) morphine [Morphine] Allergy (Unknown, Verified 12/20/16 12:11) naproxen sodium [From Naprelan CR Dosepak] Allergy (Unknown, Verified 12/20/16 12:11) nitrofurantoin [From Macrobid] Allergy (Unknown, Verified 12/20/16 12:11) pantoprazole sodium [From Protonix] Allergy (Unknown, Verified 12/20/16 12:11) Penicillins Allergy (Unknown, Verified 12/20/16 12:11) Sulfa (Sulfonamide Antibiotics) Allergy (Unknown, Verified 12/20/16 12:11) tramadol HCl [From Ultracet] Allergy (Unknown, Verified 12/20/16 12:11) lamotrigine [From Lamictal] Allergy (Verified 12/20/16 12:11) rash Review of Systems Constitutional: PRESENT: fatigue, weakness. ABSENT: as per HPI, anorexia, chills, fever(s), headache(s), night sweats, weight gain, weight loss, other Eyes: PRESENT: visual disturbances Ears: ABSENT: as per HPI, hearing changes, other Nose, Mouth, and Throat: ABSENT: as per HPI, headache(s), mouth pain, sore throat, vertigo, other Cardiovascular: ABSENT: chest pain, dyspnea on exertion, edema, orthropnea, palpitations Respiratory: ABSENT: as per HPI, cough, dyspnea, hemoptysis, sputum, other Gastrointestinal: ABSENT: abdominal pain, constipation, diarrhea, hematemesis, hematochezia, nausea, vomiting Genitourinary: ABSENT: dysuria, hematuria Musculoskeletal: PRESENT: other - left upper extremity pain Integumentary: ABSENT: rash, wounds Neurological: PRESENT: abnormal gait - ambulate with straight cane assistance, confusion - improving, frequent falls, weakness - generalized Psychiatric: PRESENT: anxiety, depression. ABSENT: as per HPI, hallucinations, homidical ideation, suicidal ideation, other Endocrine: ABSENT: as per HPI, cold intolerance, flushing, heat intolerance, menstrual abnormalities, polydipsia, polyphagia, polyuria, other Hematologic/Lymphatic: ABSENT: as per HPI, easy bleeding, easy bruising, lymphadenopathy, other Allergic/Immunologic: ABSENT: as per HPI, seasonal rhinorrhea, other Physical Exam Vital Signs: Temp Pulse Resp BP Pulse Ox 98.0 F 93 20 99/53 L 100 01/18/17 18:43 01/18/17 18:43 01/18/17 18:43 01/18/17 18:43 01/18/17 18:43 Intake & Output 01/17/17 01/18/17 01/19/17 06:59 06:59 06:59 Intake Total 363 3050 Output Total 1300 2700 Balance -937 350 Weight 148.8 kg 148.8 kg General appearance: PRESENT: no acute distress, morbidly obese Head exam: PRESENT: atraumatic, normocephalic Eye exam: PRESENT: conjunctiva pink, EOMI, PERRLA. ABSENT: scleral icterus Ear exam: PRESENT: normal external ear exam Mouth exam: PRESENT: moist, tongue midline Teeth exam: PRESENT: edentulous - with denture usage Throat exam: ABSENT: post pharyngeal erythema, tonsillar erythema, tonsillar exudate, tonsillogmegaly, other Neck exam: PRESENT: full ROM. ABSENT: carotid bruit, JVD, lymphadenopathy, thyromegaly Respiratory exam: PRESENT: clear to auscultation christine, decreased breath sounds Cardiovascular exam: PRESENT: RRR. ABSENT: diastolic murmur, rubs, systolic murmur Vascular exam: PRESENT: normal capillary refill GI/Abdominal exam: PRESENT: normal bowel sounds, soft. ABSENT: distended, guarding, mass, organolmegaly, rebound, tenderness Rectal exam: PRESENT: deferred Gentrourinary exam: PRESENT: indwelling catheter Extremities exam: PRESENT: pedal edema - comparatively improved Musculoskeletal exam: PRESENT: deformity - related to multiple joints involvement with arthritis. 2nd right toe deformity with swelling and expressed tenderness to palpation, tenderness - right 2nd toe Neurological exam: PRESENT: altered - but improving, oriented to person, oriented to situation Psychiatric exam: PRESENT: anxious, depressed. ABSENT: agitated, appropriate affect, flat affect, homicidal ideation, manic, normal mood, suicidal ideation, unusual affect, other Skin exam: PRESENT: dry, warm, other - there is open wound on 2nd right toe without significnat discharge or drainage. There is associated right 2nd toe swelling and deformity Results Laboratory Results: 01/18/17 07:48 01/18/17 07:48 01/18/17 01/18/17 01/18/17 07:48 07:48 10:07 WBC 10.1 RBC 2.72 L Hgb 6.9 L Hct 21.8 L MCV 80 MCH 25.3 L MCHC 31.6 L RDW 19.9 H Plt Count 244 Seg Neutrophils % 71.3 Lymphocytes % 16.2 Monocytes % 8.7 Eosinophils % 3.5 Basophils % 0.3 Absolute Neutrophils 7.2 Absolute Lymphocytes 1.6 Absolute Monocytes 0.9 Absolute Eosinophils 0.4 Absolute Basophils 0.0 Sodium 138.5 Potassium 5.4 H Chloride 100 Carbon Dioxide 27 Anion Gap 12 BUN 62 H Creatinine 4.17 H Est GFR ( Amer) 13 L Est GFR (Non-Af Amer) 11 L Glucose 106 Calcium 8.6 Phosphorus 7.3 H Magnesium 2.6 H Total Bilirubin 0.5 AST 47 H ALT 32 Alkaline Phosphatase 145 H Total Protein 6.7 Albumin 3.1 L Blood Type O POSITIVE Antibody Screen NEGATIVE 01/17/17 01/17/17 21:50 21:50 Creatine Kinase 2405 H CK-MB (CK-2) 1.81 Troponin I < 0.012 NT-Pro-B Natriuret Pep 113 Impressions: Head CT 01/17/17 10:33 IMPRESSION: Very limited negative study Abdomen/Pelvis CT 01/17/17 14:27 IMPRESSION: No acute abnormality in the abdomen or pelvis. Chest X-Ray 01/17/17 16:29 IMPRESSION: No pneumothorax post right jugular central line placement with the tip in the superior vena cava Pulmonary vascular congestion. Mild pulmonary edema could not be excluded. Toe X-Ray 01/17/17 19:31 IMPRESSION: Findings consistent with osteomyelitis involving the distal phalanx of the 2nd digit with associated soft tissue swelling and air in the soft tissues consistent with an infectious process. Assessment & Plan - Diagnosis (1) Altered mental status Qualifiers: Altered mental status type: unspecified Qualified Code(s): R41.82 - Altered mental status, unspecified Is this a current diagnosis for this admission?: YesPlan: See admitting physician orders. (2) Acute renal failure Qualifiers: Acute renal failure type: unspecified Qualified Code(s): N17.9 - Acute kidney failure, unspecified Is this a current diagnosis for this admission?: YesPlan: See admitting physician orders. (3) Rhabdomyolysis Qualifiers: Rhabdomyolysis type: traumatic Encounter type: initial encounter Qualified Code(s): T79.6XXA - Traumatic ischemia of muscle, initial encounter Is this a current diagnosis for this admission?: YesPlan: See admitting physician orders. (4) Acute osteomyelitis of phalanx of right foot Is this a current diagnosis for this admission?: YesPlan: See admitting physician orders. (5) Anemia associated with acute blood loss Is this a current diagnosis for this admission?: YesPlan: See admitting physician orders. (6) HTN (hypertension) Qualifiers: Hypertension type: essential hypertension Qualified Code(s): I10 - Essential (primary) hypertension Is this a current diagnosis for this admission?: YesPlan: See admitting physician orders. (7) Chronic kidney disease Qualifiers: Chronic kidney disease stage: stage 3 (moderate) Qualified Code(s): N18.3 - Chronic kidney disease, stage 3 (moderate) Is this a current diagnosis for this admission?: YesPlan: See admitting physician orders. (8) 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 Is this a current diagnosis for this admission?: YesPlan: See admitting physician orders. (9) Bipolar 1 disorder, depressed Is this a current diagnosis for this admission?: YesPlan: See admitting physician orders. - Time Time Spent: Greater than 70 Minutes Medications reviewed and adjusted accordingly: Yes Anticipated discharge: Home with Homehealth Within: Other - Inpatient Certification Based on my medical assessment, after consideration of the patient's comorbidities, presenting symptoms, or acuity I expect that the services needed warrant INPATIENT care.: Yes I certify that my determination is in accordance with my understanding of Medicare's requirements for reasonable and necessary INPATIENT services [42 CFR 412.3e].: Yes Medical Necessity: Need Close Monitoring Due to Risk of Patient Decompensation, Need For IV Fluids, Need For Continuous Telemetry Monitoring, Need for IV Antibiotics, Risk of Complication if Not Cared For in Hospital Post Hospital Care: D/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
--- NOTE | 2017-01-18 20:08 | PDOC PROGRESS REPORT ---
Subjective Progress Note for:: 01/18/17 Subjective:: Patient is much lucid so far today. She cannot remember the circumstances of her fall at home. She denied any chest pain or difficulty with breathing. She remain on IV Cleocin and Doxycycline coverage. Her right foot X ray suggested 2nd toe distal phalanx infectious process similar to osteomyelitis. She remain on IV fluid support and need for PRBC transfusion earlier today. Physical Exam Vital Signs: Temp Pulse Resp BP Pulse Ox 98.0 F 93 20 99/53 L 100 01/18/17 18:43 01/18/17 18:43 01/18/17 18:43 01/18/17 18:43 01/18/17 18:43 Intake & Output 01/17/17 01/18/17 01/19/17 06:59 06:59 06:59 Intake Total 363 2050 Output Total 1300 500 Balance -937 1550 Weight 148.8 kg 148.8 kg General appearance: PRESENT: no acute distress, morbidly obese Head exam: PRESENT: atraumatic, normocephalic Eye exam: PRESENT: conjunctiva pink, EOMI, PERRLA. ABSENT: scleral icterus Mouth exam: PRESENT: moist Teeth exam: PRESENT: edentulous Respiratory exam: PRESENT: clear to auscultation christine, decreased breath sounds Cardiovascular exam: PRESENT: RRR. ABSENT: diastolic murmur, rubs, systolic murmur GI/Abdominal exam: PRESENT: normal bowel sounds, soft. ABSENT: distended, guarding, mass, organolmegaly, rebound, tenderness Extremities exam: PRESENT: pedal edema - comparatively improving Musculoskeletal exam: PRESENT: deformity - involving multiple joints and right 2nd toe deformity Neurological exam: PRESENT: alert, awake, oriented to person, oriented to place , oriented to time, oriented to situation, CN II-XII grossly intact. ABSENT: motor sensory deficit Psychiatric exam: PRESENT: appropriate affect, normal mood. ABSENT: homicidal ideation, suicidal ideation Results Laboratory Results: 01/18/17 07:48 01/18/17 07:48 01/18/17 01/18/17 01/18/17 07:48 07:48 10:07 WBC 10.1 RBC 2.72 L Hgb 6.9 L Hct 21.8 L MCV 80 MCH 25.3 L MCHC 31.6 L RDW 19.9 H Plt Count 244 Seg Neutrophils % 71.3 Lymphocytes % 16.2 Monocytes % 8.7 Eosinophils % 3.5 Basophils % 0.3 Absolute Neutrophils 7.2 Absolute Lymphocytes 1.6 Absolute Monocytes 0.9 Absolute Eosinophils 0.4 Absolute Basophils 0.0 Sodium 138.5 Potassium 5.4 H Chloride 100 Carbon Dioxide 27 Anion Gap 12 BUN 62 H Creatinine 4.17 H Est GFR ( Amer) 13 L Est GFR (Non-Af Amer) 11 L Glucose 106 Calcium 8.6 Phosphorus 7.3 H Magnesium 2.6 H Total Bilirubin 0.5 AST 47 H ALT 32 Alkaline Phosphatase 145 H Total Protein 6.7 Albumin 3.1 L Blood Type O POSITIVE Antibody Screen NEGATIVE 01/17/17 01/17/17 21:50 21:50 Creatine Kinase 2405 H CK-MB (CK-2) 1.81 Troponin I < 0.012 NT-Pro-B Natriuret Pep 113 Impressions: Head CT 01/17/17 10:33 IMPRESSION: Very limited negative study Abdomen/Pelvis CT 01/17/17 14:27 IMPRESSION: No acute abnormality in the abdomen or pelvis. Chest X-Ray 01/17/17 16:29 IMPRESSION: No pneumothorax post right jugular central line placement with the tip in the superior vena cava Pulmonary vascular congestion. Mild pulmonary edema could not be excluded. Toe X-Ray 01/17/17 19:31 IMPRESSION: Findings consistent with osteomyelitis involving the distal phalanx of the 2nd digit with associated soft tissue swelling and air in the soft tissues consistent with an infectious process. Assessment & Plan - Diagnosis (1) Acute renal failure Qualifiers: Acute renal failure type: unspecified Qualified Code(s): N17.9 - Acute kidney failure, unspecified Is this a current diagnosis for this admission?: YesPlan: Continue IV fluid hydration. Acute decompensation probably due to her acute rhabdomyolysis from preadmission fall. (2) Rhabdomyolysis Qualifiers: Rhabdomyolysis type: traumatic Encounter type: initial encounter Qualified Code(s): T79.6XXA - Traumatic ischemia of muscle, initial encounter Is this a current diagnosis for this admission?: YesPlan: See attending physician orders. Probably following her preadmission fall incident and been on the floor for several hours before rescue. (3) Acute osteomyelitis of phalanx of right foot Is this a current diagnosis for this admission?: YesPlan: As per physical examination and X ray findings. Continue with IV Cloecin and Doxycycline coverage due to her ongoing acute on chronic kidney disease. (4) Anemia associated with acute blood loss Is this a current diagnosis for this admission?: YesPlan: Patient has history of chronic blood from internal hemorrhoid. She received 2 units PRBC. We will follow up on pending CBC for post transfuse level of HGB and further need of PRBC transfusion. (5) HTN (hypertension) Qualifiers: Hypertension type: essential hypertension Qualified Code(s): I10 - Essential (primary) hypertension Is this a current diagnosis for this admission?: YesPlan: Patient continue to demonstrate hypotension which could be due to her prior diuretic usage and volume contraction as well as possible sepsis. She will continue on IV fluid support for now. (6) Chronic kidney disease Qualifiers: Chronic kidney disease stage: stage 3 (moderate) Qualified Code(s): N18.3 - Chronic kidney disease, stage 3 (moderate) Is this a current diagnosis for this admission?: YesPlan: See attending physician orders. I will request nephrology consultation with Dr Son Garcia in view of her acute worsening process. 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 (8) Bipolar 1 disorder, depressed Is this a current diagnosis for this admission?: YesPlan: See attending physician orders. 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
[2017-01-18 21:24] LABS: ABSOLUTE EOSINOPHILS # (AUTO) 0.3 10^3/uL (0.0-0.6); ABSOLUTE LYMPHOCYTES (AUTO) 1.4 10^3/uL (0.5-4.7); ABSOLUTE MONOCYTES (AUTO) 0.9 10^3/uL (0.1-1.4); ABSOLUTE NEUT (AUTO) 6.8 10^3/uL (1.7-8.2); BASOPHILS % (AUTO) 0.5 % (0-2); EOSINOPHILS % (AUTO) 3.5 % (0-6); HEMATOCRIT 29.1 % (36.0-47.0); HGB HCT DIFFERENCE -0.9; LYMPHOCYTES % (AUTO) 15.2 % (13-45); MEAN CORPUSCULAR HEMOGLOBIN 26.3 pg (27.0-33.4); MEAN CORPUSCULAR HGB CONC 32.2 g/dL (32.0-36.0); MEAN CORPUSCULAR VOLUME 82 fl (80-97); MONOCYTES % (AUTO) 9.5 % (3-13); RED BLOOD COUNT 3.56 10^6/uL (3.72-5.28); RED CELL DISTRIBUTION WIDTH 18.4 % (11.5-14.0); SEGMENTED NEUTROPHILS % (AUTO) 71.3 % (42-78); WHITE BLOOD COUNT 9.5 10^3/uL (4.0-10.5)
[2017-01-18 21:35] LABS: HEMOGLOBIN 9.4 g/dL (12.0-15.5)
[2017-01-18] MEDS: INSULIN LISPRO 100 UNIT/ML 3 ML VIAL SUBCUT PRN (23:07)
[2017-01-19] MEDS: CLINDAMYCIN 600 MG/D5W RTU 600 MG/50 ML RTUPB IV SCH ×3 (05:11→20:10)
[2017-01-19] MEDS: LANSOPRAZOLE 30 MG TAB.RAP.DR PO SCH (05:12)
[2017-01-19] MEDS: HEPARIN SOD (PORCINE) 5,000 UNIT/ML 1 ML SYRINGE SUBCUT SCH ×3 (05:12→21:24)
[2017-01-19] MEDS: NORMAL SALINE 1000 ML 1,000 ML IV PRN (08:43)
[2017-01-19] MEDS: DOXYCYCLINE HYCLATE 100 MG in DEXTROSE 5%-WATER 250 ML IV SCH ×2 (09:32→21:23)
--- NOTE | 2017-01-19 11:03 | Physician Advisory Note ---
Physician Advisor ProgressNote .: Pursuant to the plan for [facility], I have reviewed the medical record for this patient. Physician Advisor Statement: Please consider documentin. "ARF, suspect ATN, related to ...." 2. "Acute mild hyponatremia, likely due to intravascular volume depletion" 3. likely cause of the Acute Blood Loss Anemia [if felt to have acute blood loss as well as hemorrhoid-caused chronic blood loss]. 4. A. "Possible sepsis, ruled out", vs. B. "Possible sepsis, present on adm [or not POA], likely due to " Thanks! CK
[2017-01-19] MEDS: INSULIN LISPRO 100 UNIT/ML 3 ML VIAL SUBCUT PRN ×3 (12:11→23:26)
--- NOTE | 2017-01-19 20:00 | PDOC PROGRESS REPORT ---
Subjective Progress Note for:: 01/19/17 Subjective:: Patient reported left arm discomfort. No chest pain. No difficulty with breathing. No nausea, vomiting, or abdominal pain. Remain on IV fluid hydration , IV Cleocin and Doxycycline coverage with downward trend of her leukocytosis. Physical Exam Vital Signs: Temp Pulse Resp BP Pulse Ox 98.2 F 91 17 104/62 100 01/19/17 15:35 01/19/17 19:00 01/19/17 15:35 01/19/17 15:35 01/19/17 15:35 Intake & Output 01/18/17 01/19/17 01/20/17 06:59 06:59 06:59 Intake Total 363 5134 2231 Output Total 1300 7900 3500 Balance -766 -0032 -4967 Weight 148.8 kg 148.8 kg 152.1 kg Physical Exam: General appearance: PRESENT: no acute distress, morbidly obese Head exam: PRESENT: atraumatic, normocephalic Eye exam: PRESENT: conjunctiva pink, EOMI, PERRLA. ABSENT: scleral icterus Mouth exam: PRESENT: moist Teeth exam: PRESENT: edentulous Respiratory exam: PRESENT: clear to auscultation christine, decreased breath sounds Cardiovascular exam: PRESENT: RRR. ABSENT: diastolic murmur, rubs, systolic murmur GI/Abdominal exam: PRESENT: normal bowel sounds, soft. ABSENT: distended, guarding, mass, organomegaly, rebound, tenderness Extremities exam: PRESENT: pedal edema - comparatively improving Musculoskeletal exam: PRESENT: deformity - involving multiple joints and right 2nd toe deformity Neurological exam: PRESENT: alert, awake, oriented to person, oriented to place , oriented to time, oriented to situation, CN II-XII grossly intact. ABSENT: motor sensory deficit Psychiatric exam: PRESENT: appropriate affect, normal mood. ABSENT: homicidal ideation, suicidal ideation Results Laboratory Results: 01/18/17 21:08 01/18/17 07:48 01/18/17 21:08 WBC 9.5 RBC 3.56 L Hgb 9.4 L D Hct 29.1 L MCV 82 MCH 26.3 L MCHC 32.2 RDW 18.4 H Plt Count 246 Seg Neutrophils % 71.3 Lymphocytes % 15.2 Monocytes % 9.5 Eosinophils % 3.5 Basophils % 0.5 Absolute Neutrophils 6.8 Absolute Lymphocytes 1.4 Absolute Monocytes 0.9 Absolute Eosinophils 0.3 Absolute Basophils 0.0 01/17/17 01/17/17 21:50 21:50 Creatine Kinase 2405 H CK-MB (CK-2) 1.81 Troponin I < 0.012 NT-Pro-B Natriuret Pep 113 Impressions: Head CT 01/17/17 10:33 IMPRESSION: Very limited negative study Abdomen/Pelvis CT 01/17/17 14:27 IMPRESSION: No acute abnormality in the abdomen or pelvis. Chest X-Ray 01/17/17 16:29 IMPRESSION: No pneumothorax post right jugular central line placement with the tip in the superior vena cava Pulmonary vascular congestion. Mild pulmonary edema could not be excluded. Toe X-Ray 01/17/17 19:31 IMPRESSION: Findings consistent with osteomyelitis involving the distal phalanx of the 2nd digit with associated soft tissue swelling and air in the soft tissues consistent with an infectious process. Assessment & Plan - Diagnosis (1) Acute renal failure Qualifiers: Acute renal failure type: unspecified Qualified Code(s): N17.9 - Acute kidney failure, unspecified Is this a current diagnosis for this admission?: Yes (2) Rhabdomyolysis Qualifiers: Rhabdomyolysis type: traumatic Encounter type: initial encounter Qualified Code(s): T79.6XXA - Traumatic ischemia of muscle, initial encounter Is this a current diagnosis for this admission?: Yes (3) Acute osteomyelitis of phalanx of right foot Is this a current diagnosis for this admission?: Yes (4) Anemia associated with acute blood loss Is this a current diagnosis for this admission?: Yes (5) HTN (hypertension) Qualifiers: Hypertension type: essential hypertension Qualified Code(s): I10 - Essential (primary) hypertension Is this a current diagnosis for this admission?: Yes (6) Chronic kidney disease Qualifiers: Chronic kidney disease stage: stage 3 (moderate) Qualified Code(s): N18.3 - Chronic kidney disease, stage 3 (moderate) Is this a current diagnosis for this admission?: Yes (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 Is this a current diagnosis for this admission?: Yes (8) Bipolar 1 disorder, depressed Is this a current diagnosis for this admission?: Yes - Time Time Spent with patient: 25-34 minutes Medications reviewed and adjusted accordingly: Yes Anticipated discharge: Home with Homehealth Within: Other - Inpatient Certification Based on my medical assessment, after consideration of the patient's comorbidities, presenting symptoms, or acuity I expect that the services needed warrant INPATIENT care.: Yes I certify that my determination is in accordance with my understanding of Medicare's requirements for reasonable and necessary INPATIENT services [42 CFR 412.3e].: Yes Medical Necessity: Need Close Monitoring Due to Risk of Patient Decompensation, Need For IV Fluids, Need For Continuous Telemetry Monitoring, Need for IV Antibiotics, Risk of Complication if Not Cared For in Hospital 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 Increase IV fluid rate to 125 ml/hour in view of her negative balance. I will request surgical consultation with Dr Jean Lopez in view of her right 2nd toe osteomyelitis and open wound with serous drainage. Obtain CBC with diff and CMP in am.
[2017-01-20] MEDS: CLINDAMYCIN 600 MG/D5W RTU 600 MG/50 ML RTUPB IV SCH ×3 (04:23→22:42)
[2017-01-20] MEDS: NORMAL SALINE 1000 ML 1,000 ML IV PRN (04:24)
[2017-01-20 04:50] LABS: ABSOLUTE EOSINOPHILS # (AUTO) 0.3 10^3/uL (0.0-0.6); ABSOLUTE NEUT (AUTO) 6.9 10^3/uL (1.7-8.2); BASOPHILS % (AUTO) 0.4 % (0-2); EOSINOPHILS % (AUTO) 2.9 % (0-6); HEMATOCRIT 28.7 % (36.0-47.0); HEMOGLOBIN 9.2 g/dL (12.0-15.5); HGB HCT DIFFERENCE -1.1; LYMPHOCYTES % (AUTO) 19.6 % (13-45); MEAN CORPUSCULAR HGB CONC 32.2 g/dL (32.0-36.0); MEAN CORPUSCULAR VOLUME 81 fl (80-97); MONOCYTES % (AUTO) 9.7 % (3-13); RED BLOOD COUNT 3.56 10^6/uL (3.72-5.28); RED CELL DISTRIBUTION WIDTH 19.5 % (11.5-14.0); SEGMENTED NEUTROPHILS % (AUTO) 67.4 % (42-78); WHITE BLOOD COUNT 10.2 10^3/uL (4.0-10.5)
[2017-01-20 05:19] LABS: ALANINE AMINOTRANSFERASE 29 U/L (9-52); ALBUMIN 3.4 g/dL (3.5-5.0); ALKALINE PHOSPHATASE 195 U/L (38-126); ANION GAP 11 (5-19); ASPARTATE AMINO TRANSFERASE 33 U/L (14-36); BILIRUBIN,DIRECT 0.4 mg/dL (0.0-0.4); BILIRUBIN,TOTAL 0.4 mg/dL (0.2-1.3); BLOOD UREA NITROGEN 29 mg/dL (7-20); CALCIUM 9.5 mg/dL (8.4-10.2); CARBON DIOXIDE 31 mmol/L (22-30); CHLORIDE 99 mmol/L (98-107); CREATININE RESULT 1.67 mg/dL (0.52-1.25); GLUCOSE 87 mg/dL (75-110); POTASSIUM 5.4 mmol/L (3.6-5.0); SODIUM 140.7 mmol/L (137-145); TOTAL PROTEIN 7.4 g/dL (6.3-8.2)
[2017-01-20] MEDS: HEPARIN SOD (PORCINE) 5,000 UNIT/ML 1 ML SYRINGE SUBCUT SCH ×3 (06:12→22:44)
[2017-01-20] MEDS: LANSOPRAZOLE 30 MG TAB.RAP.DR PO SCH (06:13)
[2017-01-20] MEDS: DOXYCYCLINE HYCLATE 100 MG in DEXTROSE 5%-WATER 250 ML IV SCH ×2 (10:11→22:43)
[2017-01-20] MEDS ORDERED: LIDOCAINE 1% INJ-PF (10 MG/ML) 30 ML SDV ONE (12:32)
--- NOTE | 2017-01-20 13:43 | OPERATIVE REPORT E ---
Operative Report NAME: SANTOS NAVARRO : 1960 AGE: 56Y DATE OF SURGERY: ROOM: 335 PREOPERATIVE DIAGNOSIS: ABSCESS OF THE RIGHT SECOND TOE. POSTOPERATIVE DIAGNOSES: ABSCESS OF THE RIGHT SECOND TOE WITH GANGRENOUS CHANGES OF THE SECOND TOE TIP AND POSSIBLE OSTEOMYELITIS. OPERATION: Incision and drainage of abscess, right second toe. SURGEON: JENA MAN M.D. ANESTHESIA: Local. INDICATION: This is a 56-year-old female admitted for infection of the right second toe. On examination, there is some fluctuance around the second toe and with obvious abscess. PROCEDURE: The patient was placed in the supine position and the right foot and toes were prepped and draped in the usual sterile fashion. Local anesthesia was infiltrated into the tip of the big toe and a small incision made. There was some purulent material that was squeezed out and cultures were obtained. This was noted to be foul smelling. The area was then further debrided towards the toe tip. It was quite obvious that the tip of the toe is somewhat gangrenous. The lateral aspect of the proximal second toe had some fluctuance. This was also incised and further purulent material extruded out, which may have some gas in it. Cultures were obtained. Further debridement of the tip of the right second toe was done sharply with scissors. At this point, the distal phalangeal bone was noted to be palpable and relatively loose. It appears that patient also had osteomyelitis. The patient claims that she had thickening of the right second toe for the past few months. Following this, the procedure was then terminated. The patient will need amputation of the right second toe. The patient unfortunately ate lunch and we will see if it can be done tonight or most likely in the morning. DICTATING PHYSICIAN: JENA MAN M.D. [id number] PHY#: [id number] ID: [id number] JOB#: [id number] ACCT: [id number] cc:JENA MAN M.D. >
--- NOTE | 2017-01-20 15:10 | PDOC PROGRESS REPORT ---
Subjective Progress Note for:: 01/20/17 Subjective:: Patient was evaluated by surgicalist earlier today and had right 2nd toe incision and drainage of soft tissue abscess. She is schedule for toe amputation tomorrow in management of her osteomyelitis. No reported fever or chills. No chest pain. No difficulty with breathing. No nausea, vomiting, or abdominal pain. Remain on IV Cleocin and Doxycycline coverage. Physical Exam Vital Signs: Temp Pulse Resp BP Pulse Ox 98.1 F 89 19 120/68 100 01/20/17 11:33 01/20/17 14:00 01/20/17 11:33 01/20/17 11:33 01/20/17 11:33 Intake & Output 01/19/17 01/20/17 01/21/17 06:59 06:59 06:59 Intake Total 5134 4031 0 Output Total 7900 5700 875 Balance -2766 -1669 -875 Weight 148.8 kg 148.2 kg Physical Exam: General appearance: PRESENT: no acute distress, morbidly obese Head exam: PRESENT: atraumatic, normocephalic Eye exam: PRESENT: conjunctiva pink, EOMI, PERRLA. ABSENT: scleral icterus Mouth exam: PRESENT: moist Teeth exam: PRESENT: edentulous Respiratory exam: PRESENT: clear to auscultation christine, decreased breath sounds Cardiovascular exam: PRESENT: RRR. ABSENT: diastolic murmur, rubs, systolic murmur GI/Abdominal exam: PRESENT: normal bowel sounds, soft. ABSENT: distended, guarding, mass, organomegaly, rebound, tenderness Extremities exam: PRESENT: pedal edema - comparatively improving Musculoskeletal exam: PRESENT: deformity - involving multiple joints and right 2nd toe s/p I&D procedure Neurological exam: PRESENT: alert, awake, oriented to person, oriented to place , oriented to time, oriented to situation, CN II-XII grossly intact. ABSENT: motor sensory deficit Psychiatric exam: PRESENT: appropriate affect, normal mood. ABSENT: homicidal ideation, suicidal ideation Results Laboratory Results: 01/20/17 04:25 01/20/17 04:25 01/20/17 01/20/17 04:25 04:25 WBC 10.2 RBC 3.56 L Hgb 9.2 L Hct 28.7 L MCV 81 MCH 26.0 L MCHC 32.2 RDW 19.5 H Plt Count 285 Seg Neutrophils % 67.4 Lymphocytes % 19.6 Monocytes % 9.7 Eosinophils % 2.9 Basophils % 0.4 Absolute Neutrophils 6.9 Absolute Lymphocytes 2.0 Absolute Monocytes 1.0 Absolute Eosinophils 0.3 Absolute Basophils 0.0 Sodium 140.7 Potassium 5.4 H Chloride 99 Carbon Dioxide 31 H Anion Gap 11 BUN 29 H Creatinine 1.67 H Est GFR ( Amer) 38 L Est GFR (Non-Af Amer) 32 L Glucose 87 Calcium 9.5 Total Bilirubin 0.4 AST 33 ALT 29 Alkaline Phosphatase 195 H Total Protein 7.4 Albumin 3.4 L 01/17/17 01/17/17 21:50 21:50 Creatine Kinase 2405 H CK-MB (CK-2) 1.81 Troponin I < 0.012 NT-Pro-B Natriuret Pep 113 Impressions: Head CT 01/17/17 10:33 IMPRESSION: Very limited negative study Abdomen/Pelvis CT 01/17/17 14:27 IMPRESSION: No acute abnormality in the abdomen or pelvis. Chest X-Ray 01/17/17 16:29 IMPRESSION: No pneumothorax post right jugular central line placement with the tip in the superior vena cava Pulmonary vascular congestion. Mild pulmonary edema could not be excluded. Toe X-Ray 01/17/17 19:31 IMPRESSION: Findings consistent with osteomyelitis involving the distal phalanx of the 2nd digit with associated soft tissue swelling and air in the soft tissues consistent with an infectious process. Assessment & Plan - Diagnosis (1) Acute renal failure Qualifiers: Acute renal failure type: unspecified Qualified Code(s): N17.9 - Acute kidney failure, unspecified Is this a current diagnosis for this admission?: Yes (2) Rhabdomyolysis Qualifiers: Rhabdomyolysis type: traumatic Encounter type: initial encounter Qualified Code(s): T79.6XXA - Traumatic ischemia of muscle, initial encounter Is this a current diagnosis for this admission?: Yes (3) Acute osteomyelitis of phalanx of right foot Is this a current diagnosis for this admission?: Yes (4) Anemia associated with acute blood loss Is this a current diagnosis for this admission?: Yes (5) HTN (hypertension) Qualifiers: Hypertension type: essential hypertension Qualified Code(s): I10 - Essential (primary) hypertension Is this a current diagnosis for this admission?: Yes (6) Chronic kidney disease Qualifiers: Chronic kidney disease stage: stage 3 (moderate) Qualified Code(s): N18.3 - Chronic kidney disease, stage 3 (moderate) Is this a current diagnosis for this admission?: Yes (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 Is this a current diagnosis for this admission?: Yes (8) Bipolar 1 disorder, depressed Is this a current diagnosis for this admission?: Yes - Time Time Spent with patient: 25-34 minutes Medications reviewed and adjusted accordingly: Yes Anticipated discharge: Home with Homehealth - Inpatient Certification Based on my medical assessment, after consideration of the patient's comorbidities, presenting symptoms, or acuity I expect that the services needed warrant INPATIENT care.: Yes I certify that my determination is in accordance with my understanding of Medicare's requirements for reasonable and necessary INPATIENT services [42 CFR 412.3e].: Yes Medical Necessity: Need Close Monitoring Due to Risk of Patient Decompensation, Need For IV Fluids, Need For Continuous Telemetry Monitoring, Need for IV Antibiotics, Need for Surgery, Risk of Complication if Not Cared For in Hospital Post Hospital 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 Maintain on current medication management for her diabetes mellitus management. We will consider restarting her preadmission medication tomorrow post operatively.
[2017-01-21] MEDS: HEPARIN SOD (PORCINE) 5,000 UNIT/ML 1 ML SYRINGE SUBCUT SCH ×3 (05:07→21:39)
[2017-01-21] MEDS: CLINDAMYCIN 600 MG/D5W RTU 600 MG/50 ML RTUPB IV SCH ×3 (05:29→20:30)
[2017-01-21] MEDS: LANSOPRAZOLE 30 MG TAB.RAP.DR PO SCH (05:30)
[2017-01-21] MEDS: DOXYCYCLINE HYCLATE 100 MG in DEXTROSE 5%-WATER 250 ML IV SCH ×2 (09:29→21:38)
[2017-01-21] MEDS ORDERED: FENTANYL CITRATE INJ/PF 100 MCG/2 ML AMPUL ONE ×2 (10:00→10:01)
[2017-01-21] MEDS ORDERED: ONDANSETRON HCL INJ/PF 4 MG/2 ML SDV ONE (10:01)
[2017-01-21] MEDS ORDERED: MIDAZOLAM 2 MG/2 ML INJ ONE (10:01)
[2017-01-21] MEDS ORDERED: EPHEDRINE SULFATE INJ 50 MG/1 ML AMPULE ONE (10:01)
[2017-01-21] MEDS ORDERED: HYDROMORPHONE HCL INJ/PF 2 MG/ML AMPULE ONE (10:02)
[2017-01-21] MEDS ORDERED: PROPOFOL INJ 200 MG/20 ML VIAL IV ONE (10:02)
--- NOTE | 2017-01-21 10:08 | PDOC PROGRESS REPORT ---
Subjective Progress Note for:: 01/21/17 Subjective:: Patient believes her toe needs to come off Physical Exam Vital Signs: Temp Pulse Resp BP Pulse Ox 98.2 F 91 18 120/64 96 01/21/17 07:37 01/21/17 07:37 01/21/17 07:37 01/21/17 07:37 01/21/17 07:37 Intake & Output 01/20/17 01/21/17 01/22/17 06:59 06:59 06:59 Intake Total 4031 2500 Output Total 5700 2800 Balance -1669 -300 Weight 148.2 kg 146 kg Musculoskeletal exam: PRESENT: other - Right foot dressing removed. Patient has chronic callus and lichenified tissue right heel. The right second toe has foul smell open drainage with erythema. There is a scar over the metatarsal region. There is a strong palpable dorsalis pedis pulse. Results Laboratory Results: 01/20/17 04:25 01/17/17 01/17/17 21:50 21:50 Creatine Kinase 2405 H CK-MB (CK-2) 1.81 Troponin I < 0.012 NT-Pro-B Natriuret Pep 113 Impressions: Head CT 01/17/17 10:33 IMPRESSION: Very limited negative study Abdomen/Pelvis CT 01/17/17 14:27 IMPRESSION: No acute abnormality in the abdomen or pelvis. Chest X-Ray 01/17/17 16:29 IMPRESSION: No pneumothorax post right jugular central line placement with the tip in the superior vena cava Pulmonary vascular congestion. Mild pulmonary edema could not be excluded. Toe X-Ray 01/17/17 19:31 IMPRESSION: Findings consistent with osteomyelitis involving the distal phalanx of the 2nd digit with associated soft tissue swelling and air in the soft tissues consistent with an infectious process. Assessment & Plan - Diagnosis (1) Gangrene Is this a current diagnosis for this admission?: YesPlan: Assessment: 1. Septic right second toe due to diabetes, and infection; likely component of microvascular disease. Plan: Take patient to the operating room for right toe amputation, possible packing open possible closure by delayed primary closure approach. Benefits alternatives were explained to the patient. I believe she understands and agrees to proceed.
[2017-01-21 10:23] LABS: ANION GAP 12 (5-19); BLOOD UREA NITROGEN 21 mg/dL (7-20); CALCIUM 9.6 mg/dL (8.4-10.2); CARBON DIOXIDE 26 mmol/L (22-30); CHLORIDE 100 mmol/L (98-107); CREATININE RESULT 1.32 mg/dL (0.52-1.25); GLUCOSE 119 mg/dL (75-110); POTASSIUM 4.8 mmol/L (3.6-5.0); SODIUM 137.7 mmol/L (137-145)
[2017-01-21] MEDS ORDERED: LIDOCAINE 1% INJ-PF (10 MG/ML) 30 ML SDV ONE (10:38)
--- NOTE | 2017-01-21 12:08 | OPERATIVE REPORT E ---
Operative Report NAME: SANTOS NAVARRO : 1960 AGE: 56Y DATE OF SURGERY: 01/21/2017 ROOM: 335 PREOPERATIVE DIAGNOSIS: GANGRENOUS INFECTED RIGHT SECOND TOE. POSTOPERATIVE DIAGNOSIS: GANGRENOUS INFECTED RIGHT SECOND TOE. OPERATION: Right second toe with ray amputation. SURGEON: SIMON LAZARO M.D. ANESTHESIA: LMAC. COMPLICATIONS: None. ESTIMATED BLOOD LOSS: 15 mL. DRAINS: None. TISSUE REMOVED OR ALTERED: Right second toe. SUMMARY OF PROCEDURE: The patient was taken from preoperative holding area to the main operating room where LMAC anesthesia was induced. The right foot was prepped and draped in a sterile fashion. Surgical plan and surgical time-out were conducted. The right second toe was foul, malodorous. The base was anesthetized with 1% plain lidocaine. The toe was amputated at the web space. We took the portion of the metatarsal head with rongeurs. The wound was irrigated. A dominant digital artery was oversewn with a 3-0 Vicryl suture. There was no evidence of sepsis to the foot. We felt that primary closure would be risky, so we placed 4 interrupted vertical 3-0 mattress sutures into position and packed the wound open with Iodoform packing, placed 4 by 4s, Kerlix, dressing on. The intention will be for delayed primary closure in 2 to 3 days pending the condition of the foot. The patient tolerated the procedure well. She was taken to the recovery room in stable condition. DICTATING PHYSICIAN: SIMON LAZARO M.D. [id number] PHY#: [id number] ID: [id number] JOB#: [id number] ACCT: [id number] cc:SIMON LAZARO M.D. >
[2017-01-21] MEDS: NORMAL SALINE 1000 ML 1,000 ML IV PRN (13:43)
--- NOTE | 2017-01-21 17:06 | PDOC PROGRESS REPORT ---
Subjective Progress Note for:: 01/21/17 Subjective:: She was seen by the bedside, she was in the OR today for amputation of the toe of the left foot because of osteomyelitis, she has type 2 diabetes mellitus with multiple complications including chronic kidney disease, neuropathy, she was seen by the bedside today presently on IV antibiotic with continue same Physical Exam Vital Signs: Temp Pulse Resp BP Pulse Ox 98.1 F 83 20 132/66 H 100 01/21/17 15:13 01/21/17 15:13 01/21/17 15:13 01/21/17 15:13 01/21/17 15:13 Intake & Output 01/20/17 01/21/17 01/22/17 06:59 06:59 06:59 Intake Total 4031 2500 300 Output Total 5700 2800 970 Balance -2039 -300 -672 Weight 148.2 kg 146 kg General appearance: PRESENT: no acute distress Eye exam: PRESENT: PERRLA Respiratory exam: PRESENT: clear to auscultation christine Cardiovascular exam: PRESENT: +S1, +S2 GI/Abdominal exam: PRESENT: soft Neurological exam: PRESENT: alert Results Laboratory Results: 01/20/17 04:25 01/21/17 09:45 01/21/17 09:45 Sodium 137.7 Potassium 4.8 Chloride 100 Carbon Dioxide 26 Anion Gap 12 BUN 21 H Creatinine 1.32 H Est GFR ( Amer) 50 L Est GFR (Non-Af Amer) 41 L Glucose 119 H Calcium 9.6 01/17/17 01/17/17 21:50 21:50 Creatine Kinase 2405 H CK-MB (CK-2) 1.81 Troponin I < 0.012 NT-Pro-B Natriuret Pep 113 Impressions: Head CT 01/17/17 10:33 IMPRESSION: Very limited negative study Abdomen/Pelvis CT 01/17/17 14:27 IMPRESSION: No acute abnormality in the abdomen or pelvis. Chest X-Ray 01/17/17 16:29 IMPRESSION: No pneumothorax post right jugular central line placement with the tip in the superior vena cava Pulmonary vascular congestion. Mild pulmonary edema could not be excluded. Toe X-Ray 01/17/17 19:31 IMPRESSION: Findings consistent with osteomyelitis involving the distal phalanx of the 2nd digit with associated soft tissue swelling and air in the soft tissues consistent with an infectious process. 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
[2017-01-21] MEDS: OXYCODONE-ACETAMINOPHEN 5-325 MG TABLET PO PRN (20:40)
[2017-01-22] MEDS: OXYCODONE-ACETAMINOPHEN 5-325 MG TABLET PO PRN (02:21)
[2017-01-22] MEDS: CLINDAMYCIN 600 MG/D5W RTU 600 MG/50 ML RTUPB IV SCH ×3 (05:28→20:25)
[2017-01-22] MEDS: LANSOPRAZOLE 30 MG TAB.RAP.DR PO SCH (05:29)
[2017-01-22] MEDS: HEPARIN SOD (PORCINE) 5,000 UNIT/ML 1 ML SYRINGE SUBCUT SCH ×3 (05:29→22:01)
[2017-01-22] MEDS: NORMAL SALINE 1000 ML 1,000 ML IV PRN ×2 (05:30→20:27)
[2017-01-22] MEDS: DOXYCYCLINE HYCLATE 100 MG in DEXTROSE 5%-WATER 250 ML IV SCH ×2 (09:51→21:59)
--- NOTE | 2017-01-22 15:00 | PDOC PROGRESS REPORT ---
Subjective Progress Note for:: 01/22/17 Subjective:: She was seen by the bedside, she was in the OR today for amputation of the toe of the left foot because of osteomyelitis, she has type 2 diabetes mellitus with multiple complications including chronic kidney disease, neuropathy, she was seen by the bedside today presently on IV antibiotic with continue same Physical Exam Vital Signs: Temp Pulse Resp BP Pulse Ox 97.6 F 75 19 117/66 97 01/22/17 11:12 01/22/17 11:12 01/22/17 11:12 01/22/17 11:12 01/22/17 11:12 Intake & Output 01/21/17 01/22/17 01/23/17 06:59 06:59 06:59 Intake Total 2500 3336 100 Output Total 2800 2520 1300 Balance -300 816 -1200 Weight 146 kg 144.6 kg General appearance: PRESENT: no acute distress Eye exam: PRESENT: PERRLA Respiratory exam: PRESENT: clear to auscultation christine Cardiovascular exam: PRESENT: +S1, +S2 GI/Abdominal exam: PRESENT: soft Neurological exam: PRESENT: alert, CN II-XII grossly intact Results Laboratory Results: 01/20/17 04:25 01/21/17 09:45 01/17/17 01/17/17 21:50 21:50 Creatine Kinase 2405 H CK-MB (CK-2) 1.81 Troponin I < 0.012 NT-Pro-B Natriuret Pep 113 Impressions: Head CT 01/17/17 10:33 IMPRESSION: Very limited negative study Abdomen/Pelvis CT 01/17/17 14:27 IMPRESSION: No acute abnormality in the abdomen or pelvis. Chest X-Ray 01/17/17 16:29 IMPRESSION: No pneumothorax post right jugular central line placement with the tip in the superior vena cava Pulmonary vascular congestion. Mild pulmonary edema could not be excluded. Toe X-Ray 01/17/17 19:31 IMPRESSION: Findings consistent with osteomyelitis involving the distal phalanx of the 2nd digit with associated soft tissue swelling and air in the soft tissues consistent with an infectious process. 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
--- NOTE | 2017-01-22 16:50 | PDOC PROGRESS REPORT ---
Subjective Progress Note for:: 01/22/17 Subjective:: Patient is 1 day status post right second toe amputation. She is motoring around in the bed with her feet completely dependent Physical Exam Vital Signs: Temp Pulse Resp BP Pulse Ox 98.2 F 82 19 121/64 100 01/22/17 15:33 01/22/17 15:33 01/22/17 15:33 01/22/17 15:33 01/22/17 15:33 Intake & Output 01/21/17 01/22/17 01/23/17 06:59 06:59 06:59 Intake Total 2500 3336 100 Output Total 2800 2520 1300 Balance -300 816 -1200 Weight 146 kg 144.6 kg General appearance: PRESENT: no acute distress Musculoskeletal exam: PRESENT: other - Some drainage through exterior dressing Results Laboratory Results: 01/20/17 04:25 01/21/17 09:45 01/17/17 01/17/17 21:50 21:50 Creatine Kinase 2405 H CK-MB (CK-2) 1.81 Troponin I < 0.012 NT-Pro-B Natriuret Pep 113 Impressions: Head CT 01/17/17 10:33 IMPRESSION: Very limited negative study Abdomen/Pelvis CT 01/17/17 14:27 IMPRESSION: No acute abnormality in the abdomen or pelvis. Chest X-Ray 01/17/17 16:29 IMPRESSION: No pneumothorax post right jugular central line placement with the tip in the superior vena cava Pulmonary vascular congestion. Mild pulmonary edema could not be excluded. Toe X-Ray 01/17/17 19:31 IMPRESSION: Findings consistent with osteomyelitis involving the distal phalanx of the 2nd digit with associated soft tissue swelling and air in the soft tissues consistent with an infectious process. Assessment & Plan - Diagnosis (1) Gangrene Is this a current diagnosis for this admission?: YesPlan: Patient is 1 day status post open right second toe amputation with stitches in position for potential delayed primary closure of the next 24 hours. Of note patient is seriously noncompliant. I discussed this with her today. Plan: We will take dressing down tomorrow and hopefully reapproximate wound in a DPC fashion.
[2017-01-22] MEDS: ONDANSETRON HCL INJ/PF 4 MG/2 ML SDV IV PRN (19:15)
[2017-01-22] MEDS ORDERED: ONDANSETRON HCL INJ/PF 4 MG/2 ML SDV ONE (19:21)
[2017-01-22] MEDS ORDERED: ZOLPIDEM TARTRATE 5 MG TABLET PO ONE ×2 (21:00→23:00)
[2017-01-23] MEDS: OXYCODONE-ACETAMINOPHEN 5-325 MG TABLET PO PRN ×2 (01:21→11:33)
[2017-01-23] MEDS: ONDANSETRON HCL INJ/PF 4 MG/2 ML SDV IV PRN (02:33)
[2017-01-23] MEDS: CLINDAMYCIN 600 MG/D5W RTU 600 MG/50 ML RTUPB IV SCH ×2 (05:02→13:12)
[2017-01-23] MEDS: LANSOPRAZOLE 30 MG TAB.RAP.DR PO SCH (06:01)
[2017-01-23] MEDS: HEPARIN SOD (PORCINE) 5,000 UNIT/ML 1 ML SYRINGE SUBCUT SCH ×3 (06:08→23:01)
[2017-01-23] MEDS: DOXYCYCLINE HYCLATE 100 MG in DEXTROSE 5%-WATER 250 ML IV SCH (09:32)
[2017-01-23] MEDS: NORMAL SALINE 1000 ML 1,000 ML IV PRN (13:13)
--- NOTE | 2017-01-23 18:44 | PDOC PROGRESS REPORT ---
Subjective Progress Note for:: 01/23/17 Subjective:: Patient is s/p right 2nd toe amputation surgery. She remain clinically stable post operatively. Her POC accuchek have been fairly satisfactory. No reported fever or chills. No chest pain or difficulty with breathing. No nausea, vomiting , or abdominal pain. Remain on IV Cleocin and Doxycycline coverage. Physical Exam Vital Signs: Temp Pulse Resp BP Pulse Ox 98.1 F 81 20 127/74 H 100 01/23/17 15:53 01/23/17 15:53 01/23/17 15:53 01/23/17 15:53 01/23/17 15:53 Intake & Output 01/22/17 01/23/17 01/24/17 06:59 06:59 06:59 Intake Total 3336 2670 2057 Output Total 2520 3550 1800 Balance 816 -880 257 Weight 144.6 kg 145.7 kg Physical Exam: General appearance: PRESENT: no acute distress, morbidly obese Head exam: PRESENT: atraumatic, normocephalic Eye exam: PRESENT: conjunctiva pink, EOMI, PERRLA. ABSENT: scleral icterus Mouth exam: PRESENT: moist Teeth exam: PRESENT: edentulous Respiratory exam: PRESENT: clear to auscultation christine, decreased breath sounds Cardiovascular exam: PRESENT: RRR. ABSENT: diastolic murmur, rubs, systolic murmur GI/Abdominal exam: PRESENT: normal bowel sounds, soft. ABSENT: distended, guarding, mass, organomegaly, rebound, tenderness Extremities exam: PRESENT: pedal edema - comparatively improved bilateral lower extremities edema. : PRESENT: Indwelling Alcantara catheter. Musculoskeletal exam: PRESENT: deformity - involving multiple joints and s/p right 2nd toe amputation with satisfactory wound condition. Neurological exam: PRESENT: alert, awake, oriented to person, oriented to place , oriented to time, oriented to situation, CN II-XII grossly intact. ABSENT: motor sensory deficit Psychiatric exam: PRESENT: appropriate affect, normal mood. ABSENT: homicidal ideation, suicidal ideation Results Laboratory Results: 01/20/17 04:25 01/21/17 09:45 01/20/17 13:30 Foot - Abscess Gram Stain - Final 01/20/17 13:30 Foot - Abscess Wound Culture - Final Group B Beta Streptococcus Prevotella Species Skin Yoselin 01/17/17 22:30 Blood Blood Culture - Final NO GROWTH IN 5 DAYS 01/17/17 21:50 Blood Blood Culture - Final NO GROWTH IN 5 DAYS 01/17/17 01/17/17 21:50 21:50 Creatine Kinase 2405 H CK-MB (CK-2) 1.81 Troponin I < 0.012 NT-Pro-B Natriuret Pep 113 Impressions: Head CT 01/17/17 10:33 IMPRESSION: Very limited negative study Abdomen/Pelvis CT 01/17/17 14:27 IMPRESSION: No acute abnormality in the abdomen or pelvis. Chest X-Ray 01/17/17 16:29 IMPRESSION: No pneumothorax post right jugular central line placement with the tip in the superior vena cava Pulmonary vascular congestion. Mild pulmonary edema could not be excluded. Toe X-Ray 01/17/17 19:31 IMPRESSION: Findings consistent with osteomyelitis involving the distal phalanx of the 2nd digit with associated soft tissue swelling and air in the soft tissues consistent with an infectious process. Assessment & Plan - Diagnosis (1) Acute renal failure Qualifiers: Acute renal failure type: unspecified Qualified Code(s): N17.9 - Acute kidney failure, unspecified Is this a current diagnosis for this admission?: YesPlan: Continue IV fluid hydration. Obtain renal indices in AM. D/C Alcantara catheter. (2) Rhabdomyolysis Qualifiers: Rhabdomyolysis type: traumatic Encounter type: initial encounter Qualified Code(s): T79.6XXA - Traumatic ischemia of muscle, initial encounter Is this a current diagnosis for this admission?: YesPlan: See attending physician orders. Repeat serum CK level in AM. (3) Acute osteomyelitis of phalanx of right foot Is this a current diagnosis for this admission?: YesPlan: D/C IV [place] and Doxycycline coverage. Blood culture is no growth x 5 days and wound culture revealed group B beta streptococcus and Prevotella species. Maintain on oral Doxycycline 100mg p o bid. (4) Anemia associated with acute blood loss Is this a current diagnosis for this admission?: YesPlan: See attending physician orders. (5) HTN (hypertension) Qualifiers: Hypertension type: essential hypertension Qualified Code(s): I10 - Essential (primary) hypertension Is this a current diagnosis for this admission?: YesPlan: See attending physician orders. (6) Chronic kidney disease Qualifiers: Chronic kidney disease stage: stage 3 (moderate) Qualified Code(s): N18.3 - Chronic kidney disease, stage 3 (moderate) Is this a current diagnosis for this admission?: YesPlan: See attending physician orders. Follow up on renal indices. 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 (8) Bipolar 1 disorder, depressed Is this a current diagnosis for this admission?: YesPlan: See attending physician orders. We will resume her preadmission mental health medication management as appropriate. - Time Time Spent with patient: 25-34 minutes Medications reviewed and adjusted accordingly: Yes Anticipated discharge: Home with Homehealth Within: Other - Inpatient Certification Based on my medical assessment, after consideration of the patient's comorbidities, presenting symptoms, or acuity I expect that the services needed warrant INPATIENT care.: Yes I certify that my determination is in accordance with my understanding of Medicare's requirements for reasonable and necessary INPATIENT services [42 CFR 412.3e].: Yes Medical Necessity: Need Close Monitoring Due to Risk of Patient Decompensation, Need For IV Fluids, Need For Continuous Telemetry Monitoring, Need for IV Antibiotics, Need for Surgery, Risk of Complication if Not Cared For in Hospital Post Hospital Care: D/C Manager Of Program Documentation - Plan Summary Plan Summary: See attending physician orders.
--- NOTE | 2017-01-23 19:02 | PDOC PROGRESS REPORT ---
Subjective Subjective:: patient feels comfortable Physical Exam Vital Signs: Temp Pulse Resp BP Pulse Ox 98.1 F 81 20 127/74 H 100 01/23/17 15:53 01/23/17 15:53 01/23/17 15:53 01/23/17 15:53 01/23/17 15:53 Intake & Output 01/22/17 01/23/17 01/24/17 06:59 06:59 06:59 Intake Total 3336 2670 2057 Output Total 2520 3130 1800 Balance 816 -880 257 Weight 144.6 kg 145.7 kg Extremities exam: PRESENT: other - right foot: surgical wound clean, no odor, no drainage, sutures in place Results Laboratory Results: 01/20/17 04:25 01/21/17 09:45 01/20/17 13:30 Foot - Abscess Gram Stain - Final 01/20/17 13:30 Foot - Abscess Wound Culture - Final Group B Beta Streptococcus Prevotella Species Skin Yoselin 01/17/17 22:30 Blood Blood Culture - Final NO GROWTH IN 5 DAYS 01/17/17 21:50 Blood Blood Culture - Final NO GROWTH IN 5 DAYS 01/17/17 01/17/17 21:50 21:50 Creatine Kinase 2405 H CK-MB (CK-2) 1.81 Troponin I < 0.012 NT-Pro-B Natriuret Pep 113 Impressions: Head CT 01/17/17 10:33 IMPRESSION: Very limited negative study Abdomen/Pelvis CT 01/17/17 14:27 IMPRESSION: No acute abnormality in the abdomen or pelvis. Chest X-Ray 01/17/17 16:29 IMPRESSION: No pneumothorax post right jugular central line placement with the tip in the superior vena cava Pulmonary vascular congestion. Mild pulmonary edema could not be excluded. Toe X-Ray 01/17/17 19:31 IMPRESSION: Findings consistent with osteomyelitis involving the distal phalanx of the 2nd digit with associated soft tissue swelling and air in the soft tissues consistent with an infectious process. Assessment & Plan - Plan Summary Plan Summary: Assessment: POD #2 after right foot 2nd toe amputation wound clean Plan: delayed wound closure at bedside today daily dressing changes with dry sponges only patient can be discharged to home anytime by my viewpoint patient can ambulate with walker and heel pressure only until wound well healed f/u with Dr. Herrera in 1 week keep right foot dry off water until wound is fully healed and sutures have been removed. We will sign off. please, call us with questions.
[2017-01-23] MEDS ORDERED: (PENDING PHARMACY ID) (Aripiprazole [Abilify 30 Mg Tablet] 15 MG) PO SCH (22:00)
[2017-01-23] MEDS ORDERED: (PENDING PHARMACY ID) (Trazodone Hcl [Desyrel] 300 MG) PO SCH (22:00)
[2017-01-23] MEDS: BUPROPION HCL 75 MG TABLET PO SCH (22:52)
[2017-01-23] MEDS: DOXYCYCLINE HYCLATE 100 MG TABLET PO SCH (22:52)
[2017-01-23] MEDS: SIMVASTATIN 10 MG TABLET PO SCH (22:54)
[2017-01-23] MEDS: ARIPIPRAZOLE 5 MG TABLET PO SCH (23:02)
[2017-01-23] MEDS: TRAZODONE HCL 50 MG TABLET PO SCH (23:09)
[2017-01-23] MEDS: DULOXETINE HCL 30 MG CAPSULE.DR PO SCH (23:09)
[2017-01-24] MEDS: NORMAL SALINE 1000 ML 1,000 ML IV PRN (01:30)
[2017-01-24] MEDS: OXYCODONE-ACETAMINOPHEN 5-325 MG TABLET PO PRN ×2 (01:59→16:57)
[2017-01-24] MEDS: HEPARIN SOD (PORCINE) 5,000 UNIT/ML 1 ML SYRINGE SUBCUT SCH ×3 (06:08→23:31)
[2017-01-24] MEDS: LANSOPRAZOLE 30 MG TAB.RAP.DR PO SCH (06:08)
[2017-01-24 06:43] LABS: ALANINE AMINOTRANSFERASE 34 U/L (9-52); ALBUMIN 3.6 g/dL (3.5-5.0); ALKALINE PHOSPHATASE 180 U/L (38-126); ANION GAP 11 (5-19); ASPARTATE AMINO TRANSFERASE 28 U/L (14-36); BILIRUBIN,DIRECT 0.4 mg/dL (0.0-0.4); BILIRUBIN,TOTAL 0.4 mg/dL (0.2-1.3); BLOOD UREA NITROGEN 15 mg/dL (7-20); CALCIUM 9.6 mg/dL (8.4-10.2); CARBON DIOXIDE 24 mmol/L (22-30); CHLORIDE 101 mmol/L (98-107); CREATINE KINASE 64 U/L (30-135); CREATININE RESULT 1.14 mg/dL (0.52-1.25); GLUCOSE 121 mg/dL (75-110); POTASSIUM 4.4 mmol/L (3.6-5.0); SODIUM 135.9 mmol/L (137-145)
[2017-01-24 06:45] LABS: ABSOLUTE BASOPHILS # (AUTO) 0.1 10^3/uL (0.0-0.2); ABSOLUTE EOSINOPHILS # (AUTO) 0.3 10^3/uL (0.0-0.6); ABSOLUTE LYMPHOCYTES (AUTO) 2.4 10^3/uL (0.5-4.7); ABSOLUTE MONOCYTES (AUTO) 0.9 10^3/uL (0.1-1.4); ABSOLUTE NEUT (AUTO) 6.8 10^3/uL (1.7-8.2); BASOPHILS % (AUTO) 0.5 % (0-2); EOSINOPHILS % (AUTO) 2.7 % (0-6); HEMATOCRIT 30.5 % (36.0-47.0); HGB HCT DIFFERENCE -0.5; LYMPHOCYTES % (AUTO) 22.8 % (13-45); MEAN CORPUSCULAR HEMOGLOBIN 26.2 pg (27.0-33.4); MEAN CORPUSCULAR HGB CONC 32.7 g/dL (32.0-36.0); MEAN CORPUSCULAR VOLUME 80 fl (80-97); MONOCYTES % (AUTO) 8.8 % (3-13); RED BLOOD COUNT 3.81 10^6/uL (3.72-5.28); RED CELL DISTRIBUTION WIDTH 18.8 % (11.5-14.0); SEGMENTED NEUTROPHILS % (AUTO) 65.2 % (42-78); WHITE BLOOD COUNT 10.5 10^3/uL (4.0-10.5)
[2017-01-24 06:55] LABS: CREATINE KINASE MB 0.35 ng/mL (<4.55)
[2017-01-24 06:57] LABS: TROPONIN I < 0.012 ng/mL
[2017-01-24] MEDS ORDERED: (PENDING PHARMACY ID) (Naloxegol Oxalate 25 MG) PO SCH (08:00)
[2017-01-24] MEDS ORDERED: (PENDING PHARMACY ID) (Olmesartan Medoxomil [Benicar] 20 MG) PO SCH (10:00)
[2017-01-24] MEDS ORDERED: SAXAGLIPTIN HYDROCHLORIDE 2.5 MG PO SCH (10:00)
[2017-01-24] MEDS ORDERED: AMITRIPTYLINE HCL PO SCH (10:00)
[2017-01-24] MEDS: ARIPIPRAZOLE 5 MG TABLET PO SCH ×2 (10:25→23:32)
[2017-01-24] MEDS: LOSARTAN POTASSIUM 50 MG TABLET PO SCH (10:25)
[2017-01-24] MEDS: SITAGLIPTIN PHOSPHATE 50 MG TABLET PO SCH (10:26)
[2017-01-24] MEDS: BUPROPION HCL 75 MG TABLET PO SCH ×2 (10:26→23:33)
[2017-01-24] MEDS: DOXYCYCLINE HYCLATE 100 MG TABLET PO SCH ×2 (10:26→23:31)
[2017-01-24] MEDS: LEVOTHYROXINE SODIUM 0.05 MG TABLET PO SCH (11:32)
[2017-01-24] MEDS: AMITRIPTYLINE HCL 75 MG TABLET PO SCH (11:32)
[2017-01-24] MEDS: DULOXETINE HCL 30 MG CAPSULE.DR PO SCH ×2 (11:32→23:31)
[2017-01-24] MEDS: BENZTROPINE MESYLATE 1 MG TABLET PO SCH ×2 (11:32→17:58)
--- NOTE | 2017-01-24 19:05 | PDOC PROGRESS REPORT ---
Subjective Progress Note for:: 01/24/17 Subjective:: Patient is s/p right 2nd toe amputation surgery. No reported discharge or drainage from wound. No fever or chills. No chest pain or difficulty with breathing. No nausea, vomiting, or abdominal pain. Currently on oral Doxycycline coverage. Physical Exam Vital Signs: Temp Pulse Resp BP Pulse Ox 98.8 F 86 20 128/77 H 100 01/24/17 17:09 01/24/17 17:09 01/24/17 17:09 01/24/17 17:09 01/24/17 17:09 Intake & Output 01/23/17 01/24/17 01/25/17 06:59 06:59 06:59 Intake Total 2670 3257 1902 Output Total 3550 2600 200 Balance -206 362 3003 Weight 145.7 kg 145.8 kg Physical Exam: General appearance: PRESENT: no acute distress, morbidly obese Head exam: PRESENT: atraumatic, normocephalic Eye exam: PRESENT: conjunctiva pink, EOMI, PERRLA. ABSENT: scleral icterus Mouth exam: PRESENT: moist Teeth exam: PRESENT: edentulous Respiratory exam: PRESENT: clear to auscultation christine, decreased breath sounds Cardiovascular exam: PRESENT: RRR. ABSENT: diastolic murmur, rubs, systolic murmur GI/Abdominal exam: PRESENT: normal bowel sounds, soft. ABSENT: distended, guarding, mass, organomegaly, rebound, tenderness Extremities exam: PRESENT: pedal edema - comparatively improved bilateral lower extremities edema. : PRESENT: Indwelling Alcantara catheter. Musculoskeletal exam: PRESENT: deformity - involving multiple joints and s/p right 2nd toe amputation with satisfactory wound condition. Neurological exam: PRESENT: alert, awake, oriented to person, oriented to place , oriented to time, oriented to situation, CN II-XII grossly intact. ABSENT: motor sensory deficit Psychiatric exam: PRESENT: appropriate affect, normal mood. ABSENT: homicidal ideation, suicidal ideation Results Laboratory Results: 01/24/17 06:18 01/24/17 06:18 01/24/17 01/24/17 06:18 06:18 WBC 10.5 RBC 3.81 Hgb 10.0 L Hct 30.5 L MCV 80 MCH 26.2 L MCHC 32.7 RDW 18.8 H Plt Count 302 Seg Neutrophils % 65.2 Lymphocytes % 22.8 Monocytes % 8.8 Eosinophils % 2.7 Basophils % 0.5 Absolute Neutrophils 6.8 Absolute Lymphocytes 2.4 Absolute Monocytes 0.9 Absolute Eosinophils 0.3 Absolute Basophils 0.1 Sodium 135.9 L Potassium 4.4 Chloride 101 Carbon Dioxide 24 Anion Gap 11 BUN 15 Creatinine 1.14 Est GFR ( Amer) 59 L Est GFR (Non-Af Amer) 49 L Glucose 121 H Calcium 9.6 Total Bilirubin 0.4 AST 28 ALT 34 Alkaline Phosphatase 180 H Total Protein 8.0 Albumin 3.6 01/20/17 13:30 Foot - Abscess Gram Stain - Final 01/20/17 13:30 Foot - Abscess Wound Culture - Final Group B Beta Streptococcus Prevotella Species Skin Yoselin 01/17/17 01/17/17 01/24/17 21:50 21:50 06:18 Creatine Kinase 2405 H 64 CK-MB (CK-2) 1.81 Troponin I < 0.012 NT-Pro-B Natriuret Pep 113 01/24/17 06:18 Creatine Kinase CK-MB (CK-2) 0.35 Troponin I < 0.012 NT-Pro-B Natriuret Pep Impressions: Head CT 01/17/17 10:33 IMPRESSION: Very limited negative study Abdomen/Pelvis CT 01/17/17 14:27 IMPRESSION: No acute abnormality in the abdomen or pelvis. Chest X-Ray 01/17/17 16:29 IMPRESSION: No pneumothorax post right jugular central line placement with the tip in the superior vena cava Pulmonary vascular congestion. Mild pulmonary edema could not be excluded. Toe X-Ray 01/17/17 19:31 IMPRESSION: Findings consistent with osteomyelitis involving the distal phalanx of the 2nd digit with associated soft tissue swelling and air in the soft tissues consistent with an infectious process. Assessment & Plan - Diagnosis (1) Acute renal failure Qualifiers: Acute renal failure type: unspecified Qualified Code(s): N17.9 - Acute kidney failure, unspecified Is this a current diagnosis for this admission?: Yes (2) Rhabdomyolysis Qualifiers: Rhabdomyolysis type: traumatic Encounter type: initial encounter Qualified Code(s): T79.6XXA - Traumatic ischemia of muscle, initial encounter Is this a current diagnosis for this admission?: Yes (3) Acute osteomyelitis of phalanx of right foot Is this a current diagnosis for this admission?: Yes (4) Anemia associated with acute blood loss Is this a current diagnosis for this admission?: Yes (5) HTN (hypertension) Qualifiers: Hypertension type: essential hypertension Qualified Code(s): I10 - Essential (primary) hypertension Is this a current diagnosis for this admission?: Yes (6) Chronic kidney disease Qualifiers: Chronic kidney disease stage: stage 3 (moderate) Qualified Code(s): N18.3 - Chronic kidney disease, stage 3 (moderate) Is this a current diagnosis for this admission?: Yes (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 Is this a current diagnosis for this admission?: Yes (8) Bipolar 1 disorder, depressed Is this a current diagnosis for this admission?: Yes - Time Time Spent with patient: 25-34 minutes - Inpatient Certification Based on my medical assessment, after consideration of the patient's comorbidities, presenting symptoms, or acuity I expect that the services needed warrant INPATIENT care.: Yes I certify that my determination is in accordance with my understanding of Medicare's requirements for reasonable and necessary INPATIENT services [42 CFR 412.3e].: Yes Medical Necessity: Need Close Monitoring Due to Risk of Patient Decompensation, Need For Continuous Telemetry Monitoring, Risk of Complication if Not Cared For in Hospital Post Hospital Care: D/C House Father Documentation - Plan Summary Plan Summary: Continue oral Doxycycline coverage. Surgicalist input appreciated. I will order for walker upon discharge with Home Health service. If patient remain afebrile she is agreeable to discharge home tomorrow.
[2017-01-24] MEDS: TRAZODONE HCL 50 MG TABLET PO SCH (23:32)
[2017-01-24] MEDS: SIMVASTATIN 10 MG TABLET PO SCH (23:41)
[2017-01-25] MEDS: HEPARIN SOD (PORCINE) 5,000 UNIT/ML 1 ML SYRINGE SUBCUT SCH ×2 (05:26→14:24)
[2017-01-25] MEDS: LANSOPRAZOLE 30 MG TAB.RAP.DR PO SCH (05:26)
[2017-01-25] MEDS: DOXYCYCLINE HYCLATE 100 MG TABLET PO SCH (10:53)
[2017-01-25] MEDS: LEVOTHYROXINE SODIUM 0.05 MG TABLET PO SCH (10:54)
[2017-01-25] MEDS: SITAGLIPTIN PHOSPHATE 50 MG TABLET PO SCH (10:54)
[2017-01-25] MEDS: BENZTROPINE MESYLATE 1 MG TABLET PO SCH ×2 (10:54→17:36)
[2017-01-25] MEDS: LOSARTAN POTASSIUM 50 MG TABLET PO SCH (10:55)
[2017-01-25] MEDS: BUPROPION HCL 75 MG TABLET PO SCH (10:55)
[2017-01-25] MEDS: AMITRIPTYLINE HCL 75 MG TABLET PO SCH (10:55)
[2017-01-25] MEDS: DULOXETINE HCL 30 MG CAPSULE.DR PO SCH (10:56)
[2017-01-25] MEDS: ARIPIPRAZOLE 5 MG TABLET PO SCH (10:56)
[2017-01-25] MEDS: INSULIN LISPRO 100 UNIT/ML 3 ML VIAL SUBCUT PRN (14:24)
[2017-01-25 19:30] VITALS: BP 129/70
--- NOTE | 2017-01-25 19:38 | PDOC DISCHARGE SUMMARY ---
General - Admit/Disc Date/PCP Admission Date/Primary Care Provider: 01/17/17 19:50 JASSON MARTINI Discharge Date: 01/25/17 - Discharge Diagnosis (1) Acute renal failure Is this a current diagnosis for this admission?: Yes (2) Rhabdomyolysis Is this a current diagnosis for this admission?: Yes (3) Acute osteomyelitis of phalanx of right foot Is this a current diagnosis for this admission?: Yes (4) Anemia associated with acute blood loss Is this a current diagnosis for this admission?: Yes (5) HTN (hypertension) Is this a current diagnosis for this admission?: Yes (6) Chronic kidney disease Is this a current diagnosis for this admission?: Yes (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 Is this a current diagnosis for this admission?: Yes (8) Bipolar 1 disorder, depressed Is this a current diagnosis for this admission?: Yes - Additional Information Resuscitation Status: Full Code Discharge Diet: Diabetic Discharge Activity: Activity As Tolerated, Supervised Activity Home Medications: Amitriptyline HCl [Elavil 150 mg Tablet] 1 tab PO DAILY 01/17/17 Aripiprazole [Abilify 30 MG Tablet] 15 mg PO Q12 01/17/17 Benztropine Mesylate [Cogentin 1 mg Tablet] 1 tab PO BID 01/17/17 Bupropion HCl [Bupropion HCl Sr] 150 mg PO QHS 01/17/17 Diazepam [Valium 5 mg Tablet] 5 mg PO QHS 01/17/17 Duloxetine HCl [Cymbalta] 60 mg PO Q12 01/17/17 Ferrous Sulfate [Feosol 325 mg Tablet] 325 mg PO BID 01/17/17 Gabapentin [Neurontin 300 mg Capsule] 300 mg PO Q8 01/17/17 Levothyroxine Sodium [Synthroid 0.05 mg Tablet] 50 mcg PO DAILY 01/17/17 Magnesium Oxide [Mag-Ox 400 mg Tablet] 400 mg PO BID 01/17/17 Naloxegol Oxalate [Movantik 25 mg Tablet] 25 mg PO QAM 01/17/17 Olmesartan Medoxomil [Benicar] 20 mg PO DAILY 01/17/17 Omeprazole 40 mg PO Q12 01/17/17 Saxagliptin Hydrochloride [Onglyza] 2.5 mg PO DAILY 01/17/17 Simvastatin [Zocor 20 mg Tablet] 20 mg PO QHS 01/17/17 Trazodone HCl [Desyrel] 300 mg PO QHS 01/17/17 Doxycycline Hyclate [Vibramycin 100 mg Tablet] 100 mg PO Q12 #20 tablet Furosemide [Lasix] 40 mg PO DAILY #0 01/25/17 History of Present Illness History of Present Illness: SANTOS NAVARRO is a 56 year old female known to my practice who was brought to the ED by EMS after she was found on the floor at home by visiting social service personnel. Patient claimed that she fell a day prior to presentation and was not able to get off the floor. Social service personnel reported that she was minimally responsive verbally at the time of her discovery at home. She did respond to pain in left upper extremity during attempt to get her off the floor by the EMS personnel. Her initial evaluation in the ED was remarkable for acute worsening of her renal function, hypotension, and altered mental status with inability to contribute meaningfully to her medical history. After initial IV fluid infusion there was some improvement in her alertness and she was able to narrate above event of fall but not the process of her fall at home. Hospital Course Hospital Course: Patient's mental status did improved with IV fluid hydration and antibiotic therapy. She did have right 2nd toe osteomyelitis necessitating surgical consult and eventual 2nd toe amputation. Post operatively she did very well and remain afebrile. She has been off IV antibiotic coverage x 24 hours. She will be discharge home today on oral Doxycycline 100mg p.o bid x 10 days. She will follow up in office as instructed and with Dr. Jacob, surgeon as instructed. She will be discharge with rollator walker and [employer] services including visiting nurse, PCS and physical therapy. Physical Exam Vital Signs: Temp Pulse Resp BP Pulse Ox 98.0 F 87 18 105/60 100 01/25/17 16:48 01/25/17 16:48 01/25/17 16:48 01/25/17 16:48 01/25/17 17:01 Intake & Output 01/24/17 01/25/17 01/26/17 06:59 06:59 06:59 Intake Total 3257 2182 150 Output Total 2600 555 Balance 657 1627 150 Weight 145.8 kg Physical Exam: General appearance: PRESENT: no acute distress, morbidly obese Head exam: PRESENT: atraumatic, normocephalic Eye exam: PRESENT: conjunctiva pink, EOMI, PERRLA. ABSENT: scleral icterus Mouth exam: PRESENT: moist Teeth exam: PRESENT: edentulous Respiratory exam: PRESENT: clear to auscultation christine, decreased breath sounds Cardiovascular exam: PRESENT: RRR. ABSENT: diastolic murmur, rubs, systolic murmur GI/Abdominal exam: PRESENT: normal bowel sounds, soft. ABSENT: distended, guarding, mass, organomegaly, rebound, tenderness Extremities exam: PRESENT: pedal edema - comparatively improved bilateral lower extremities edema. : PRESENT: Indwelling Alcantara catheter. Musculoskeletal exam: PRESENT: deformity - involving multiple joints and s/p right 2nd toe amputation with satisfactory wound condition and dressing. Neurological exam: PRESENT: alert, awake, oriented to person, oriented to place , oriented to time, oriented to situation, CN II-XII grossly intact. ABSENT: motor sensory deficit Psychiatric exam: PRESENT: appropriate affect, normal mood. ABSENT: homicidal ideation, suicidal ideation Results Laboratory Results: 01/24/17 06:18 01/24/17 06:18 01/17/17 01/17/17 01/24/17 21:50 21:50 06:18 Creatine Kinase 2405 H 64 CK-MB (CK-2) 1.81 Troponin I < 0.012 NT-Pro-B Natriuret Pep 113 01/24/17 06:18 Creatine Kinase CK-MB (CK-2) 0.35 Troponin I < 0.012 NT-Pro-B Natriuret Pep Impressions: Head CT 01/17/17 10:33 IMPRESSION: Very limited negative study Abdomen/Pelvis CT 01/17/17 14:27 IMPRESSION: No acute abnormality in the abdomen or pelvis. Chest X-Ray 01/17/17 16:29 IMPRESSION: No pneumothorax post right jugular central line placement with the tip in the superior vena cava Pulmonary vascular congestion. Mild pulmonary edema could not be excluded. Toe X-Ray 01/17/17 19:31 IMPRESSION: Findings consistent with osteomyelitis involving the distal phalanx of the 2nd digit with associated soft tissue swelling and air in the soft tissues consistent with an infectious process. Qualifiers PATEINT BEING DISCHARGED WITH ANY OF THE FOLLOWING DIAGNOSIS?: No Plan Discharge Plan: Discharge home today. Follow up in office as instructed upon discharge. I had extensive discussion with er regarding post hospital care plan and medication reconciliations. Time Spent: Greater than 30 Minutes
== END 2017-01-25 19:45 | disposition home health service (06) | DRG 256 ==
LOC: ER 10:16 → UNDOADMIN 17:27 → EH 17:27 → 3S 20:15
PROVIDERS: ADMIT Internal Medicine Geriatric Medicine; ATTEND Internal Medicine Geriatric Medicine
PROC: 02HV33Z Insertion of Infusion Device into Superior Vena Cava, Percutaneous Approach (ICD-10-PCS; 2017-01-17)
PROC: B548ZZA Ultrasonography of Superior Vena Cava, Guidance (ICD-10-PCS; 2017-01-17)
PROC: 30233N1 Transfusion of Nonautologous Red Blood Cells into Peripheral Vein, Percutaneous Approach (ICD-10-PCS; 2017-01-18)
PROC: 0H9MXZX Drainage of Right Foot Skin, External Approach, Diagnostic (ICD-10-PCS; 2017-01-20)
PROC: 0Y6R0Z0 Detachment at Right 2nd Toe, Complete, Open Approach (ICD-10-PCS; principal; 2017-01-21 10:15)
DX: E11.51 Type 2 diabetes mellitus with diabetic peripheral angiopathy without gangrene (principal); N17.9 Acute kidney failure, unspecified; M62.82 Rhabdomyolysis; M86.171 Other acute osteomyelitis, right ankle and foot; I13.0 Hypertensive heart and chronic kidney disease with heart failure and stage 1 through stage 4 chronic kidney disease, or unspecified chronic kidney disease; D62 Acute posthemorrhagic anemia; N18.4 Chronic kidney disease, stage 4 (severe); E11.52 Type 2 diabetes mellitus with diabetic peripheral angiopathy with gangrene; T79.6XXA Traumatic ischemia of muscle, initial encounter; E11.69 Type 2 diabetes mellitus with other specified complication; F31.9 Bipolar disorder, unspecified; W19.XXXA Unspecified fall, initial encounter; E78.5 Hyperlipidemia, unspecified; I50.9 Heart failure, unspecified; I25.10 Atherosclerotic heart disease of native coronary artery without angina pectoris; J44.9 Chronic obstructive pulmonary disease, unspecified; G47.30 Sleep apnea, unspecified; G43.909 Migraine, unspecified, not intractable, without status migrainosus; K21.9 Gastro-esophageal reflux disease without esophagitis; M19.90 Unspecified osteoarthritis, unspecified site; F41.9 Anxiety disorder, unspecified; F43.10 Post-traumatic stress disorder, unspecified; B95.1 Streptococcus, group B, as the cause of diseases classified elsewhere; I25.2 Old myocardial infarction; Z95.5 Presence of coronary angioplasty implant and graft; Z79.899 Other long term (current) drug therapy; Z99.81 Dependence on supplemental oxygen; Z95.1 Presence of aortocoronary bypass graft; Z90.710 Acquired absence of both cervix and uterus; Z88.6 Allergy status to analgesic agent; Z88.2 Allergy status to sulfonamides; Z88.0 Allergy status to penicillin; Z88.1 Allergy status to other antibiotic agents; Z88.8 Allergy status to other drugs, medicaments and biological substances; Z88.3 Allergy status to other anti-infective agents
CPT/HCPCS: 01470; 36415; 36430; 70450; 71010; 74176; 80048; 80053; 80307; 81001; 82550; 82553; 82803; 82962; 83735; 83880; 84100; 84484; 85025; 85610; 85730; 86850; 86900; 86901; 86920; 87040; 87070; 87075; 87077; 87205; 88304; 88311; 93005; 93010; 99291; A6266; C1751; J1170; J1644; J1815; J2250; J2405; J2704; J3010; J3490; J7030; J7060; P9016

== ENCOUNTER 2017-01-29 20:23 | Emergency (ER) | payer MEDICARE, MEDICAID ==
--- NOTE | 2017-01-29 20:49 | ER Document Report ---
ED Dizziness/Weakness - General Mode of Arrival: Wheelchair Information source: Patient TRAVEL OUTSIDE OF THE [place] IN LAST 30 DAYS: No - HPI Patient complains to provider of: Dizziness Onset: Other - Refer to HPI notes - General Chief Complaint: Dizziness Stated Complaint: WEAKNESS Time Seen by Provider: 01/29/17 20:41 Notes: Patient is a 56-year-old female presenting to the emergency department for dizziness. Patient states that she had dizziness this morning when she woke up. Patient states she got out of bed to go make some breakfast and she instantly became dizzy when she sat up. Patient states her dizziness is still present and is exacerbated by sitting up and moving her head around. Patient denies any history of these symptoms or vertigo. Patient is having home health treat do regular dressing changes and wound care on her right foot; patient has had a toe amputation on this foot in the past. Patient has an elaborate medical history and is well known to this facility. Patient states her PCP is Dr. Sharp. (JAHAIRARUTH) - Related Data Allergies/Adverse Reactions: cephalexin monohydrate [From Keflex] Allergy (Unknown, Verified 12/20/16 12:11) codeine [Codeine] Allergy (Unknown, Verified 12/20/16 12:11) dicyclomine HCl [From Bentyl] Allergy (Unknown, Verified 12/20/16 12:11) hydrocodone bitartrate [From Vicodin] Allergy (Unknown, Verified 12/20/16 12:11) meloxicam [From Mobic] Allergy (Unknown, Verified 12/20/16 12:11) meperidine HCl [From Demerol (PF)] Allergy (Unknown, Verified 12/20/16 12:11) morphine [Morphine] Allergy (Unknown, Verified 12/20/16 12:11) naproxen sodium [From Naprelan CR Dosepak] Allergy (Unknown, Verified 12/20/16 12:11) nitrofurantoin [From Macrobid] Allergy (Unknown, Verified 12/20/16 12:11) pantoprazole sodium [From Protonix] Allergy (Unknown, Verified 12/20/16 12:11) Penicillins Allergy (Unknown, Verified 12/20/16 12:11) Sulfa (Sulfonamide Antibiotics) Allergy (Unknown, Verified 12/20/16 12:11) tramadol HCl [From Ultracet] Allergy (Unknown, Verified 12/20/16 12:11) lamotrigine [From Lamictal] Allergy (Verified 12/20/16 12:11) rash Past Medical History - General Information source: Patient - Social History Smoking Status: Never Smoker Cigarette use (# per day): No Chew tobacco use (# tins/day): No Smoking Education Provided: No Frequency of alcohol use: None Drug Abuse: None Family History: None Patient has suicidal ideation: No Patient has homicidal ideation: No - Past Medical History Cardiac Medical History: Reports: Hx Congestive Heart Failure, Hx Coronary Artery Disease, Hx Heart Attack - 2 stents, Hx Hypercholesterolemia, Hx Hypertension, Hx Peripheral Vascular Disease Pulmonary Medical History: Reports: Hx Asthma, Hx Bronchitis, Hx COPD - Oxygen use at home, inhaler., Hx Sleep Apnea Neurological Medical History: Reports: Hx Migraine Endocrine Medical History: Reports: Hx Diabetes Mellitus Type 2, Hx Hyperthyroidism, Hx Hypothyroidism Renal/ Medical History: Reports: Hx Renal Insufficiency Malignancy Medical History: GI Medical History: Reports: Hx Gastroesophageal Reflux Disease Musculoskeltal Medical History: Reports Hx Arthritis, Reports Hx Fibromyalgia, Reports Hx Muscle Weakness Psychiatric Medical History: Reports: Hx Bipolar Disorder, Hx Depression, Hx Post Traumatic Stress Disorder, Hx Schizophrenia Traumatic Medical History: Infectious Medical History: Past Surgical History: Reports: Hx Cardiac Catheterization, Hx Section - x2, Hx Coronary Stent - x2, Hx Hysterectomy, Hx Orthopedic Surgery - christine knee surgery, christine feet surgery, Hx Tubal Ligation - Immunizations Hx Diphtheria, Pertussis, Tetanus Vaccination: Yes Hx Pneumococcal Vaccination: 04/02/13 Review of Systems - Review of Systems Constitutional: No symptoms reported EENT: No symptoms reported Cardiovascular: See HPI, Dizziness Respiratory: No symptoms reported Gastrointestinal: No symptoms reported Genitourinary: No symptoms reported Female Genitourinary: No symptoms reported Musculoskeletal: No symptoms reported Skin: No symptoms reported Hematologic/Lymphatic: No symptoms reported Neurological/Psychological: No symptoms reported -: Yes All other systems reviewed and negative Physical Exam - Notes Notes: GENERAL: Alert, interacts well. No acute distress. HEAD: Normocephalic, atraumatic. EYES: Appear normal. Pupils equal, round, and reactive to light. No lateral nystagmus. ENT: Moist mucus membranes, tongue midline. NECK: Full range of motion. Supple. Trachea midline. LUNGS: Clear to auscultation bilaterally, no wheezes, rales, or rhonchi. No respiratory distress. HEART: Regular rate and rhythm. No murmurs, gallops, or rubs. ABDOMEN: Morbidly obese. Soft, non-tender. Non-distended. Normal bowel sounds. EXTREMITIES: Moves all 4 extremities spontaneously. Normal strength. Peripheral edema bilaterally. Right foot is bandaged. NEUROLOGICAL: Alert and oriented x3. Normal speech. No focal neurological deficits. GSC 15. PSYCH: Normal affect, normal mood. SKIN: Warm, dry, normal turgor. No rashes or lesions noted. (RUTH CAMPO) Course - Re-evaluation Re-evalutation: 01/29/17 22:43 The patient's systolic blood pressure is in the 80s. This is not a new thing for her, she tolerates it quite well. She states that she knows that she frequently has very low blood pressure like this. Review of previous visits shows that this is not a new finding. (JAKE ROSAS) Discharge - Discharge Clinical Impression: Vertigo Condition: Stable Disposition: HOME, SELF-CARE Additional Instructions: Vertigo: You have experienced an episode of vertigo -- a whirling dizziness which may be accompanied by nausea and vomiting or staggering. Vertigo is often caused by an irritation of the inner ear, in which case it is called labyrinthitis. It can also be a symptom of a degenerating inner ear, nerve damage, or brain injury. Your physician has evaluated you to determine whether any further testing is necessary. Vertigo is often treated with dramamine or meclizine. These medications are helpful, but stronger medication may be needed if you are vomiting. Rest in bed. You should not drive or operate machinery until completely better. It may take one to three weeks for recovery. If there are new symptoms, such as decreased hearing or vision, severe headache, weakness or faintness, or confusion, call the physician. Take medication as prescribed for dizziness if needed. Follow-up with Dr. Sharp if not improving. RETURN TO THE EMERGENCY ROOM IF ANY NEW OR WORSENING SYMPTOMS. Prescriptions: Meclizine HCl [Antivert 25 mg Tablet] 25 mg PO TID PRN #20 tablet PRN Reason: Scribe Attestation: 01/29/17 21:46 I personally performed the services described in the documentation, reviewed and edited the documentation which was dictated to the scribe in my presence, and it accurately records my words and actions. (JAKE ROSAS) Scribe Documentation - Scribe Written by Olga:: Olga Bridges, 01/29/2017 21:02 acting as scribe for :: Claudia
[2017-01-29] MEDS ORDERED: MECLIZINE HCL 25 MG TABLET PO ONE (20:50)
[2017-01-29 23:33] VITALS: BP 82/45
== END 2017-01-29 22:50 | disposition home or self-care (01) ==
LOC: ER 20:23
DX: R42 Dizziness and giddiness (principal); R60.0 Localized edema; I25.10 Atherosclerotic heart disease of native coronary artery without angina pectoris; I25.2 Old myocardial infarction; I10 Essential (primary) hypertension; J44.9 Chronic obstructive pulmonary disease, unspecified; E11.51 Type 2 diabetes mellitus with diabetic peripheral angiopathy without gangrene; Z89.421 Acquired absence of other right toe(s); Z88.1 Allergy status to other antibiotic agents; Z88.5 Allergy status to narcotic agent; Z88.8 Allergy status to other drugs, medicaments and biological substances; Z88.2 Allergy status to sulfonamides; Z98.61 Coronary angioplasty status
CPT/HCPCS: 99284; A9270

== ENCOUNTER 2017-02-06 14:32 | Emergency (ER) | payer MEDICARE, MEDICAID ==
--- NOTE | 2017-02-06 14:46 | ER Document Report ---
ED General - General Mode of Arrival: Ambulatory Information source: Patient TRAVEL OUTSIDE OF THE [place] IN LAST 30 DAYS: No <DYLAN RICO - Last Filed: 02/06/17 15:42> <SUDHIR WHITFIELD - Last Filed: 02/06/17 23:07> - General Stated Complaint: WEAKNESS Time Seen by Provider: 02/06/17 14:44 Notes: Patient is a 56 year old female that presents to the emergency department today with complaints of "shaking movements". Patient was at her mathematician today where she was scheduled to have iron infusions when she was sent here secondary to these shaking movements. Patient states that this has happened once before when she needed to have a blood transfusion. Patient states this has happened on and off for the last couple years. Patient also mentions that she had a fall last night where she hit the back of her head on the AC unit. (DYLAN RICO) - Related Data Allergies/Adverse Reactions: cephalexin monohydrate [From Keflex] Allergy (Unknown, Verified 12/20/16 12:11) codeine [Codeine] Allergy (Unknown, Verified 12/20/16 12:11) dicyclomine HCl [From Bentyl] Allergy (Unknown, Verified 12/20/16 12:11) hydrocodone bitartrate [From Vicodin] Allergy (Unknown, Verified 12/20/16 12:11) meloxicam [From Mobic] Allergy (Unknown, Verified 12/20/16 12:11) meperidine HCl [From Demerol (PF)] Allergy (Unknown, Verified 12/20/16 12:11) morphine [Morphine] Allergy (Unknown, Verified 12/20/16 12:11) naproxen sodium [From Naprelan CR Dosepak] Allergy (Unknown, Verified 12/20/16 12:11) nitrofurantoin [From Macrobid] Allergy (Unknown, Verified 12/20/16 12:11) pantoprazole sodium [From Protonix] Allergy (Unknown, Verified 12/20/16 12:11) Penicillins Allergy (Unknown, Verified 12/20/16 12:11) Sulfa (Sulfonamide Antibiotics) Allergy (Unknown, Verified 12/20/16 12:11) tramadol HCl [From Ultracet] Allergy (Unknown, Verified 12/20/16 12:11) lamotrigine [From Lamictal] Allergy (Verified 12/20/16 12:11) rash Past Medical History - General Information source: Patient - Social History Smoking Status: Never Smoker Cigarette use (# per day): No Frequency of alcohol use: None Drug Abuse: None Lives with: Family Family History: None - Past Medical History Cardiac Medical History: Reports: Hx Congestive Heart Failure, Hx Coronary Artery Disease, Hx Heart Attack - 2 stents, Hx Hypercholesterolemia, Hx Hypertension, Hx Peripheral Vascular Disease Pulmonary Medical History: Reports: Hx Asthma, Hx Bronchitis, Hx COPD - Oxygen use at home, inhaler., Hx Sleep Apnea Neurological Medical History: Reports: Hx Migraine Endocrine Medical History: Reports: Hx Diabetes Mellitus Type 2, Hx Hyperthyroidism, Hx Hypothyroidism Renal/ Medical History: Reports: Hx End Stage Renal Disease - Stage IV, no dialysis yet, Hx Renal Insufficiency Malignancy Medical History: GI Medical History: Reports: Hx Gastroesophageal Reflux Disease Musculoskeltal Medical History: Reports Hx Arthritis, Reports Hx Fibromyalgia, Reports Hx Muscle Weakness Psychiatric Medical History: Reports: Hx Bipolar Disorder, Hx Depression, Hx Post Traumatic Stress Disorder, Hx Schizophrenia Traumatic Medical History: Infectious Medical History: Past Surgical History: Reports: Hx Cardiac Catheterization, Hx Section - x2, Hx Coronary Artery Bypass Graft, Hx Coronary Stent - x2, Hx Hysterectomy, Hx Orthopedic Surgery - christine knee surgery, christine feet surgery, Hx Tubal Ligation - Immunizations Hx Diphtheria, Pertussis, Tetanus Vaccination: Yes Hx Pneumococcal Vaccination: 04/02/13 <DYLAN RICO - Last Filed: 02/06/17 15:42> Review of Systems - Review of Systems Constitutional: No symptoms reported EENT: No symptoms reported Cardiovascular: No symptoms reported Respiratory: No symptoms reported Gastrointestinal: No symptoms reported Genitourinary: No symptoms reported Female Genitourinary: No symptoms reported Musculoskeletal: See HPI, Other - complains of "shaky moments" in bilateral upper/lower extremities Skin: No symptoms reported Hematologic/Lymphatic: No symptoms reported Neurological/Psychological: No symptoms reported -: Yes All other systems reviewed and negative <DYLAN RICO - Last Filed: 02/06/17 15:42> Physical Exam <DYLAN RICO - Last Filed: 02/06/17 15:42> <SUDHIR WHITFIELD - Last Filed: 02/06/17 23:07> - Vital signs Vitals: Temp Pulse Resp BP Pulse Ox 97.8 F 99 18 133/73 H 100 02/06/17 19:33 02/06/17 19:33 02/06/17 19:33 02/06/17 19:33 02/06/17 19:33 - Notes Notes: Physical Exam: General: Alert, appears well. HEENT: Normocephalic. Atraumatic. PERRL. Extraocular movements intact. Oropharynx clear. Neck: Supple. Non-tender. Respiratory: No respiratory distress. Clear and equal breath sounds bilaterally. On O2 via nasal cannula. Cardiovascular: Regular rate and rhythm. Abdominal: Obese. Non-tender. No distension. Normal Bowel Sounds. Back: Non-tender. No deformity or step off. Extremities: Moves all four extremities. Upper extremities: Normal inspection. Normal ROM. Lower extremities: Normal inspection. No edema. Normal ROM. Neurological: Normal cognition. AAOx4. Normal speech. Has bilateral upper extremity tremors when holding extremities in the air. 5/5 strength in all four extremities. Psychological: Normal affect. Normal Mood. Skin: Warm. Dry. Normal color. (DYLAN RICO) Course <DYLAN RICO - Last Filed: 02/06/17 15:42> - Laboratory Result Diagrams: 02/06/17 17:15 02/06/17 17:15 <SUDHIR WHITFIELD - Last Filed: 02/06/17 23:07> - Re-evaluation Re-evalutation: 02/06/17 15:13 Patient presents the emergency department from the hematology office with a chief complaint of anemia and jerking movements. Patient has chronic anemia is a [employer]ast[employer]ism and has been transfused in the past and set up to have an outpatient transfusion tomorrow. She is not actively bleeding. She said for on and off for the past several years she will develop intermittent jerking movements. She said that she has had some increased jerking the past couple days. Review of records show that she was discharged from the hospital on 726 with acute renal failure rhabdomyolysis osteomyelitis of the right foot which required second toe amputation by surgeon. Also has chronic iron deficiency anemia. Patient states she does not want to be here and when can she go home. She says the jerking movements have been going on for 3 days yesterday she was experiencing a jerking motion and fell says she struck her head on the air conditioning unit. Denies a loss of consciousness not currently complaining of head neck chest back or abdominal trauma. On examination she is in no respiratory distress she is alert and oriented 3 she has a small tremor is no change in reflexes or strength bilateral upper extremities bilateral lower extremities. Patient is undergoing a full workup at this time including a type and screen. 02/06/17 18:16 Patient has baseline anemia is not hypotensive tachycardic or actively bleeding and does not require an emergent ED transfusion. She is already set up by her mathematician to have an outpatient transfusion done tomorrow. Rest of her laboratory evaluation is nonacute slightly elevated potassium and creatinine no EKG changes and is not on dialysis. 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 No acute electrolyte abnormalities or neurological signs and symptoms to determine the origin of this. I discussed with her that she needs to follow-up with her primary care physician in 2-3 days to further investigate this may need outpatient neurology. But I do not see anything acutely neurological going on. This will require further outpatient investigation and I discussed with her reasons for ED return sooner (SUDHIR WHITFIELD) - Vital Signs Vital signs: Temp Pulse Resp BP Pulse Ox 97.8 F 99 18 133/73 H 100 02/06/17 19:33 02/06/17 19:33 02/06/17 19:33 02/06/17 19:33 02/06/17 19:33 - Laboratory Laboratory results interpreted by me: 02/06/17 02/06/17 02/06/17 17:15 17:15 17:15 RBC 2.80 L Hgb 7.4 L Hct 22.6 L MCH 26.3 L RDW 19.9 H Potassium 5.1 H BUN 67 H Creatinine 3.43 H Est GFR ( Amer) 17 L Est GFR (Non-Af Amer) 14 L Glucose 69 L Magnesium 2.6 H Alkaline Phosphatase 144 H Crossmatch See Detail - EKG Interpretation by Me Additional EKG results interpreted by me: 02/06/17 18:18 EKG sinus rhythm at [address] segment elevation or depression (SUDHIR WHITFIELD) Discharge <TRISHA,DYLAN - Last Filed: 02/06/17 15:42> <SUDHIR WHITFIELD - Last Filed: 02/06/17 23:07> - Discharge Clinical Impression: report of jerking motions, anemia outpatient transfusion set up Condition: Stable Disposition: HOME, SELF-CARE Additional Instructions: Weakness We did not find a definite cause for your weakness. This may require further medical tests. Weakness can be caused by infection, physical exhaustion , rapid weight loss, dehydration, or medicine side effects. Diseases of the muscles, heart, nerves, and blood vessels can make you weak. Sometimes the problem is simply depression or lack of exercise. You should get plenty of rest. Unless the doctor tells you otherwise, it's usually best to add short periods of regular mild exercise. Eat a nutritious diet with multiple small, low-sugar meals. If symptoms continue, additional medical evaluation will be necessary. Be sure to follow up as instructed. If you become very dizzy, nauseated, or feel like you're going to faint, lie down right away. Wait until the symptoms have passed before you get up again. Stand up slowly. Call the doctor or return if you develop chest pain, abdominal pain, severe headache, irregular heartbeat or very fast pulse, confusion, vision problems, fever, muscular pain, or any other new symptom. Anemia You have been found to have a significant anemia (a lower than normal amount of red blood cells). Anemia can be due to iron deficiency, vitamin deficiency, abnormal bleeding, or internal diseases. Usually, further tests are necessary to find the exact cause of the anemia. The most common cause of anemia is iron deficiency, often brought on by blood loss. This can be treated with iron supplements. If this appears to be the most likely cause, iron tablets may be prescribed even before all tests are complete. Contact the doctor at once if you note black or tarry-looking stools, bloody vomiting, shortness of breath, chest pain, or faintness. You have already been scheduled for an outpatient blood transfusion tomorrow by your primary care providers. Referrals: JASSON MARTINI MD [Primary Care Provider] - (In 2-3 days return for increasing worsening or new symptoms) Scribe Attestation: 02/06/17 18:16 I personally performed the services described in the documentation reviewed the documentation recorded by my scribe in my presence and it accurately and completely records my words and actions (SUDHIR WHITFIELD) Scribe Documentation - Scribe Written by Olga:: Olga Avendano, 02/06/2017 1552 acting as scribe for :: Duong <DYLAN RICO - Last Filed: 02/06/17 15:42>
--- NOTE | 2017-02-06 17:47 | RADIOLOGY REPORT (SQ) ---
EXAM DESCRIPTION: CHEST SINGLE VIEW COMPLETED DATE/TIME: 02/06/2017 5:10 pm REASON FOR STUDY: weakness COMPARISON: 01/17/2017 EXAM PARAMETERS: NUMBER OF VIEWS: One view. TECHNIQUE: Single frontal radiographic view of the chest acquired. RADIATION DOSE: NA LIMITATIONS: None. FINDINGS: LUNGS AND PLEURA: Pulmonary vascular congestion is present. Mild pulmonary edema cannot b e excluded. There is no localized infiltrate. MEDIASTINUM AND HILAR STRUCTURES: No masses. Contour normal. HEART AND VASCULAR STRUCTURES: Borderline heart size. BONES: No acute findings. HARDWARE: Injection port on the right. OTHER: No other significant finding. IMPRESSION: Borderline heart size with pulmonary vascular congestion. Mild pulmonary edema cannot b e excluded. TECHNICAL DOCUMENTATION: JOB ID: [id number]
[2017-02-06 17:50] LABS: ABSOLUTE BASOPHILS # (AUTO) 0.1 10^3/uL (0.0-0.2); ABSOLUTE EOSINOPHILS # (AUTO) 0.4 10^3/uL (0.0-0.6); ABSOLUTE LYMPHOCYTES (AUTO) 2.1 10^3/uL (0.5-4.7); ABSOLUTE MONOCYTES (AUTO) 0.5 10^3/uL (0.1-1.4); ABSOLUTE NEUT (AUTO) 7.2 10^3/uL (1.7-8.2); BASOPHILS % (AUTO) 0.6 % (0-2); EOSINOPHILS % (AUTO) 3.9 % (0-6); HEMATOCRIT 22.6 % (36.0-47.0); HGB HCT DIFFERENCE -0.4; LYMPHOCYTES % (AUTO) 20.2 % (13-45); MEAN CORPUSCULAR HEMOGLOBIN 26.3 pg (27.0-33.4); MEAN CORPUSCULAR HGB CONC 32.6 g/dL (32.0-36.0); MEAN CORPUSCULAR VOLUME 81 fl (80-97); MONOCYTES % (AUTO) 4.5 % (3-13); RED CELL DISTRIBUTION WIDTH 19.9 % (11.5-14.0); SEGMENTED NEUTROPHILS % (AUTO) 70.8 % (42-78); WHITE BLOOD COUNT 10.2 10^3/uL (4.0-10.5)
[2017-02-06 17:52] LABS: ALANINE AMINOTRANSFERASE 28 U/L (9-52); ALBUMIN 3.6 g/dL (3.5-5.0); ALKALINE PHOSPHATASE 144 U/L (38-126); ANION GAP 12 (5-19); ASPARTATE AMINO TRANSFERASE 17 U/L (14-36); BILIRUBIN,DIRECT 0.4 mg/dL (0.0-0.4); BILIRUBIN,TOTAL 0.4 mg/dL (0.2-1.3); BLOOD UREA NITROGEN 67 mg/dL (7-20); CALCIUM 9.1 mg/dL (8.4-10.2); CARBON DIOXIDE 24 mmol/L (22-30); CHLORIDE 102 mmol/L (98-107); CREATININE RESULT 3.43 mg/dL (0.52-1.25); GLUCOSE 69 mg/dL (75-110); MAGNESIUM 2.6 mg/dL (1.6-2.3); POTASSIUM 5.1 mmol/L (3.6-5.0); SODIUM 137.5 mmol/L (137-145); TOTAL PROTEIN 7.4 g/dL (6.3-8.2)
--- NOTE | 2017-02-06 17:52 | EKG REPORT ---
SEVERITY:- NORMAL ECG - SINUS RHYTHM : Confirmed by: Maurice Nieto 06-Feb-2017 17:50:53
[2017-02-06 17:53] LABS: HEMOGLOBIN 7.4 g/dL (12.0-15.5)
[2017-02-06 18:05] LABS: CREATINE KINASE MB 0.44 ng/mL (<4.55)
[2017-02-06 18:08] LABS: TROPONIN I < 0.012 ng/mL
[2017-02-06 18:35] LABS: APPEARANCE,URINE CLEAR; BILIRUBIN,URINE NEGATIVE (NEGATIVE); GLUCOSE, URINE NEGATIVE (NEGATIVE); KETONES,URINE NEGATIVE (NEGATIVE); LEUKOCYTE ESTERASE,URINE NEGATIVE (NEGATIVE); NITRITE,URINE NEGATIVE (NEGATIVE); PROTEIN,URINE NEGATIVE (NEGATIVE); URINE SPECIFIC GRAVITY 1.009; UROBILINOGEN,URINE NEGATIVE mg/dL (<2.0)
[2017-02-06 19:36] VITALS: BP 133/73
== END 2017-02-06 19:33 | disposition home or self-care (01) ==
LOC: ER 14:32
DX: R25.1 Tremor, unspecified (principal); D64.9 Anemia, unspecified; R53.1 Weakness; W19.XXXA Unspecified fall, initial encounter
CPT/HCPCS: 36415; 71010; 80053; 81001; 82553; 83735; 83880; 84484; 85025; 86850; 86900; 86901; 86920; 93005; 93010; 99285

== ENCOUNTER 2017-02-12 19:06 | Emergency (ER) | payer MEDICARE, MEDICAID ==
--- NOTE | 2017-02-12 20:21 | ER Document Report ---
ED Extremity Problem, Lower - General Chief Complaint: Leg Swelling Stated Complaint: FEET SWELLING Time Seen by Provider: 02/12/17 19:18 Mode of Arrival: Ambulatory Information source: Patient Notes: Patient is a 56-year-old morbidly obese female with a history of diabetes and CHF who presents to the ER today for swelling to her lower extremities over the past couple of days. Patient also had a right lesser toe amputation of the second digit a week and half ago by Dr. Herrera, and is on antibiotics to prevent infection the back. Patient states she is taking her antibiotics as prescribed. She cannot tell me the name of the antibiotic however. She has an appointment with him in 2 days and an appointment with her primary care provider tomorrow. She states that she did call her primary care provider's office who advised her to increase her Lasix to 30 mg in the morning and 30 mg at night to help with the swelling of her lower extremities. She usually just takes 20 mg twice daily. She denies any shortness of breath. TRAVEL OUTSIDE OF THE [place] IN LAST 30 DAYS: No - Related Data Allergies/Adverse Reactions: cephalexin monohydrate [From Keflex] Allergy (Unknown, Verified 12/20/16 12:11) codeine [Codeine] Allergy (Unknown, Verified 12/20/16 12:11) dicyclomine HCl [From Bentyl] Allergy (Unknown, Verified 12/20/16 12:11) hydrocodone bitartrate [From Vicodin] Allergy (Unknown, Verified 12/20/16 12:11) meloxicam [From Mobic] Allergy (Unknown, Verified 12/20/16 12:11) meperidine HCl [From Demerol (PF)] Allergy (Unknown, Verified 12/20/16 12:11) morphine [Morphine] Allergy (Unknown, Verified 12/20/16 12:11) naproxen sodium [From Naprelan CR Dosepak] Allergy (Unknown, Verified 12/20/16 12:11) nitrofurantoin [From Macrobid] Allergy (Unknown, Verified 12/20/16 12:11) pantoprazole sodium [From Protonix] Allergy (Unknown, Verified 12/20/16 12:11) Penicillins Allergy (Unknown, Verified 12/20/16 12:11) Sulfa (Sulfonamide Antibiotics) Allergy (Unknown, Verified 12/20/16 12:11) tramadol HCl [From Ultracet] Allergy (Unknown, Verified 12/20/16 12:11) lamotrigine [From Lamictal] Allergy (Verified 12/20/16 12:11) rash Past Medical History - General Information source: Patient - Social History Smoking Status: Unknown if Ever Smoked Chew tobacco use (# tins/day): Yes Family History: None - Past Medical History Cardiac Medical History: Reports: Hx Congestive Heart Failure, Hx Coronary Artery Disease, Hx Heart Attack - 2 stents, Hx Hypercholesterolemia, Hx Hypertension, Hx Peripheral Vascular Disease Denies: Hx Heart Murmur Pulmonary Medical History: Reports: Hx Asthma, Hx Bronchitis, Hx COPD - Oxygen use at home, inhaler., Hx Sleep Apnea Denies: Hx Pneumonia, Hx Respiratory Failure, Hx Tuberculosis Neurological Medical History: Reports: Hx Migraine. Denies: Hx Cerebrovascular Accident, Hx Seizures Endocrine Medical History: Reports: Hx Diabetes Mellitus Type 2, Hx Hyperthyroidism, Hx Hypothyroidism Renal/ Medical History: Reports: Hx End Stage Renal Disease - Stage IV, no dialysis yet, Hx Renal Insufficiency. Denies: Hx Peritoneal Dialysis Malignancy Medical History: GI Medical History: Reports: Hx Gastroesophageal Reflux Disease Musculoskeltal Medical History: Reports Hx Arthritis, Reports Hx Fibromyalgia, Reports Hx Muscle Weakness Psychiatric Medical History: Reports: Hx Bipolar Disorder, Hx Depression, Hx Post Traumatic Stress Disorder, Hx Schizophrenia Traumatic Medical History: Infectious Medical History: Past Surgical History: Reports: Hx Cardiac Catheterization, Hx Section - x2, Hx Coronary Artery Bypass Graft, Hx Coronary Stent - x2, Hx Hysterectomy, Hx Orthopedic Surgery - christine knee surgery, christine feet surgery, Hx Tubal Ligation - Immunizations Hx Diphtheria, Pertussis, Tetanus Vaccination: Yes Hx Pneumococcal Vaccination: 04/02/13 Review of Systems - Review of Systems Constitutional: No symptoms reported EENT: No symptoms reported Cardiovascular: No symptoms reported Respiratory: No symptoms reported Gastrointestinal: No symptoms reported Genitourinary: No symptoms reported Female Genitourinary: No symptoms reported Musculoskeletal: See HPI Skin: See HPI Hematologic/Lymphatic: No symptoms reported Neurological/Psychological: No symptoms reported Physical Exam - Vital signs Vitals: Temp Pulse Resp BP Pulse Ox 99.5 F 105 H 16 142/60 H 96 02/12/17 19:16 02/12/17 19:16 02/12/17 19:16 02/12/17 19:16 02/12/17 19:16 - Notes Notes: PHYSICAL EXAMINATION: GENERAL: Morbidly obese, and in no acute distress. HEAD: Atraumatic, normocephalic. EYES: Pupils equal round and reactive to light, extraocular movements intact, sclera anicteric, conjunctiva are normal. NECK: Normal range of motion, supple without lymphadenopathy LUNGS: CTAB and equal. No wheezes rales or rhonchi. HEART: Regular rate and rhythm without murmurs EXTREMITIES: Normal range of motion, 2+ pitting edema lower extremities. No cyanosis. NEUROLOGICAL: Cranial nerves grossly intact. Normal sensory/motor exams. PSYCH: Normal mood, normal affect. SKIN: Warm, Dry, normal turgor, healing amputation of second digit on right foot , no signs of infection, no erythema or purulent drainage, no bleeding Course - Re-evaluation Re-evalutation: 02/12/17 20:21 Patient really came here because she is scared of infection of the amputation on her right foot. It does look like it is healing well, no signs of infection today. She is already taking 60 mg of Lasix a day as per her primary care provider when she called yesterday. I advised her to continue this. She is also on antibiotics from the surgeon who amputated her toe, advised her to continue this. She has appointments with both of them in the next 2 days, I advised her to keep those appointments. - Vital Signs Vital signs: Temp Pulse Resp BP Pulse Ox 99.5 F 54 L 16 114/93 H 100 02/12/17 19:16 02/12/17 20:53 02/12/17 19:16 02/12/17 20:53 02/12/17 20:53 Discharge - Discharge Clinical Impression: Swelling of lower extremity, Amputated toe of right foot Condition: Stable Disposition: HOME, SELF-CARE Additional Instructions: Return immediately for any new or worsening symptoms. Follow up with primary care provider, call tomorrow to make followup appointment. Referrals: JASSON MARTINI MD [Primary Care Provider] - Follow up as needed
[2017-02-12 21:10] VITALS: BP 114/93
== END 2017-02-12 21:10 | disposition home or self-care (01) ==
LOC: ER 19:06
DX: M79.89 Other specified soft tissue disorders (principal); Z89.421 Acquired absence of other right toe(s); E11.51 Type 2 diabetes mellitus with diabetic peripheral angiopathy without gangrene; I13.0 Hypertensive heart and chronic kidney disease with heart failure and stage 1 through stage 4 chronic kidney disease, or unspecified chronic kidney disease; I50.9 Heart failure, unspecified; N18.4 Chronic kidney disease, stage 4 (severe); E11.22 Type 2 diabetes mellitus with diabetic chronic kidney disease; I25.2 Old myocardial infarction; Z98.61 Coronary angioplasty status; Z79.899 Other long term (current) drug therapy; Z88.1 Allergy status to other antibiotic agents; Z88.5 Allergy status to narcotic agent; Z88.8 Allergy status to other drugs, medicaments and biological substances; Z88.0 Allergy status to penicillin; Z88.2 Allergy status to sulfonamides; I25.10 Atherosclerotic heart disease of native coronary artery without angina pectoris; Z95.1 Presence of aortocoronary bypass graft
CPT/HCPCS: 99284

== ENCOUNTER 2017-03-14 07:43 | Outpatient (CLI) | payer MEDICARE, MEDICAID ==
[2017-03-14] MEDS ORDERED: NORMAL SALINE 250 ML IV PRN (08:04)
[2017-03-14 08:27] LABS: HEMATOCRIT 25.1 % (36.0-47.0); HEMOGLOBIN 8.2 g/dL (12.0-15.5); HGB HCT DIFFERENCE -0.5; MEAN CORPUSCULAR HEMOGLOBIN 27.8 pg (27.0-33.4); MEAN CORPUSCULAR HGB CONC 32.5 g/dL (32.0-36.0); MEAN CORPUSCULAR VOLUME 85 fl (80-97); RED BLOOD COUNT 2.94 10^6/uL (3.72-5.28); RED CELL DISTRIBUTION WIDTH 19.4 % (11.5-14.0); WHITE BLOOD COUNT 7.3 10^3/uL (4.0-10.5)
[2017-03-14 12:53] VITALS: BP 108/75
[2017-03-14 13:56] LABS: HEMOGLOBIN 9.2 g/dL (12.0-15.5); HGB HCT DIFFERENCE -2.4; MEAN CORPUSCULAR HGB CONC 30.6 g/dL (32.0-36.0); MEAN CORPUSCULAR VOLUME 88 fl (80-97); RED BLOOD COUNT 3.39 10^6/uL (3.72-5.28); RED CELL DISTRIBUTION WIDTH 18.1 % (11.5-14.0); WHITE BLOOD COUNT 8.9 10^3/uL (4.0-10.5)
== END 2017-03-14 13:47 | disposition home or self-care (01) ==
LOC: II 07:43 → 5TH 08:49 → II 13:47
PROVIDERS: ATTEND Internal Medicine Medical Oncology
PROC: 30243N1 Transfusion of Nonautologous Red Blood Cells into Central Vein, Percutaneous Approach (ICD-10-PCS; principal; 2017-03-14)
DX: D64.9 Anemia, unspecified (principal)
CPT/HCPCS: 86900; 86901; 36415; 36430; 86850; 85027; 86920; P9016; A9270 ×2

== ENCOUNTER 2017-03-23 09:02 | Day surgery (SDC) | payer MEDICARE, MEDICAID ==
[2017-03-23 10:44] LABS: HEMATOCRIT 28.8 % (36.0-47.0); HEMOGLOBIN 9.3 g/dL (12.0-15.5); HGB HCT DIFFERENCE -0.9; MEAN CORPUSCULAR HEMOGLOBIN 27.2 pg (27.0-33.4); MEAN CORPUSCULAR HGB CONC 32.2 g/dL (32.0-36.0); MEAN CORPUSCULAR VOLUME 85 fl (80-97); RED BLOOD COUNT 3.41 10^6/uL (3.72-5.28); RED CELL DISTRIBUTION WIDTH 17.9 % (11.5-14.0); WHITE BLOOD COUNT 9.3 10^3/uL (4.0-10.5)
[2017-03-23 10:56] LABS: PROTHROMBIN TIME 13.6 SEC (11.4-15.4)
[2017-03-23 10:57] LABS: PARTIAL THROMBOPLASTIN TIME 35.8 SEC (23.5-35.8)
[2017-03-23 11:02] LABS: BLOOD UREA NITROGEN 20 mg/dL (7-20); CREATININE RESULT 1.41 mg/dL (0.52-1.25)
[2017-03-23] MEDS ORDERED: MIDAZOLAM 2 MG/2 ML INJ ONE (11:31)
[2017-03-23] MEDS ORDERED: FENTANYL CITRATE INJ/PF 250 MCG/5 ML AMPULE ONE (11:32)
--- NOTE | 2017-03-23 15:08 | RADIOLOGY REPORT (SQ) ---
EXAM DESCRIPTION: CT BIOPSY BONE DEEP; CT NEEDLE PLACEMENT COMPLETED DATE/TIME: 03/23/2017 12:48 pm; 03/23/2017 12:47 pm REASON FOR STUDY: ANEMIA; ANEMIA, BONE BIOPSY K90.9 INTESTINAL MALABSORPTION, UNSPECIFIED D63.8 AN EMIA IN OTHER CHRONIC DISEASES CLASSIFIED ELSEWHERE E61.1 IRON DEFICIENCY COMPARISON: Bone marrow biopsy 11/16/2016 TECHNIQUE: CT guided biopsy of the left posterosuperior iliac crest bone marrow aspirate performed w ith conscious sedation. CT Fluoroscopy Time: 10.[address] scanners at this facility use dose modulation, iterative reconstruction, and/or weight based d osing when appropriate to reduce radiation dose to as low as reasonably achievable (ALARA). [facility]: Dose Right [facility]: CareDose [facility]: Dose Right [facility]: Teradose 4D [facility]: [employer] RADIATION DOSE: 96 mGy. FINDINGS: The procedure was discussed with the patient and the patient agreed to the procedure. Prio r to the procedure, a time out was performed to verify the patient's identity and planned procedure. IV sedation was administered and physician direction by the registered nurse using 2.0 milligrams of Versed and 100 micrograms of fentanyl. Physiologic monitoring was provided before, during, and after sedation. The total sedation time was 45 minutes. Documentation face to face time, the performing proceduralist, spent monitoring the patient: [address] scanning was performed to localize the percutaneous site for the biopsy approach. After sterile skin prep and local lidocaine for skin and deep tissue anesthesia, a coaxial biopsy nee dle was used to obtain a bone marrow aspirate and bone marrow core, submitted to ALEX Brunson for proce ssing. There were no immediate complications. Pathology is pending at the time of dictation. IMPRESSION: CT GUIDED BIOPSY OF THE LEFT POSTEROSUPERIOR ILIAC CREST BONE MARROW ASPIRATE AND CORE P ERFORMED WITHOUT IMMEDIATE COMPLICATION. PATHOLOGY PENDING. IV CONSCIOUS SEDATION COMMENT: Quality ID [id number]: Final reports for procedures using fluoroscopy that document radiation exp osure indices, or exposure time and number of fluorographic images (if radiation exposure indices are not available) Patient medication list reviewed: Yes- Quality ID# [id number]:Eligible professional attests to documenting i n the medical record they obtained, updated, or reviewed the patient's current medications.. TECHNICAL DOCUMENTATION: JOB ID: [id number] Quality ID# [id number]: Final reports with documentation of one or more dose reduction techniques (e.g., Aut omated exposure control, adjustment of the mA and/or kV according to patient size, use of iterative r econstruction technique) 2010 [employer]- All Rights Reserved
[2017-03-23 15:19] VITALS: BP 129/73
== END 2017-03-23 14:30 | disposition home or self-care (01) ==
LOC: RAD 09:02
PROVIDERS: ATTEND Internal Medicine Medical Oncology
PROC: 0QB33ZX Excision of Left Pelvic Bone, Percutaneous Approach, Diagnostic (ICD-10-PCS; principal; 2017-03-23)
DX: K90.9 Intestinal malabsorption, unspecified (principal); D63.8 Anemia in other chronic diseases classified elsewhere; E61.1 Iron deficiency; E11.9 Type 2 diabetes mellitus without complications; J44.9 Chronic obstructive pulmonary disease, unspecified; I11.0 Hypertensive heart disease with heart failure; I50.9 Heart failure, unspecified; Z88.5 Allergy status to narcotic agent; Z88.0 Allergy status to penicillin
CPT/HCPCS: 36415; 84520; 82565; 85027; 85610; 85730; 77012; 20225; J2250; J3010

== ENCOUNTER 2017-06-13 07:39 | Observation (INO) | payer MEDICARE, MEDICAID ==
--- NOTE | 2017-06-13 08:25 | ER Document Report ---
ED GI/ - General Chief Complaint: Flu Symptoms Stated Complaint: FLU LIKE SYMPTOMS Time Seen by Provider: 06/13/17 07:44 Notes: Patient is a 57-year-old female presents emergency department via EMS complaining of nausea and vomiting for the past 3 days. Patient states she has not been able to keep anything down p.o. Admits to epigastric abdominal pain. Patient thinks that her last bowel movement was yesterday. She admits to history of bowel obstructions. Patient does admit at this time that she has been very lonely and depressed over the past couple of days. Denies any suicidal or homicidal ideations. Follows with ROLO Dye Past medical history significant for hypertension, hyperlipidemia, insulin- dependent diabetes, chronic kidney disease unknown stage not on dialysis, depression, anxiety, iron deficiency anemia with 5 previous blood transfusions TRAVEL OUTSIDE OF THE [place] IN LAST 30 DAYS: No - Related Data Allergies/Adverse Reactions: cephalexin monohydrate [From Keflex] Allergy (Unknown, Verified 06/13/17 08:00) codeine [Codeine] Allergy (Unknown, Verified 06/13/17 08:00) dicyclomine HCl [From Bentyl] Allergy (Unknown, Verified 06/13/17 08:00) hydrocodone bitartrate [From Vicodin] Allergy (Unknown, Verified 06/13/17 08:00) meloxicam [From Mobic] Allergy (Unknown, Verified 06/13/17 08:00) meperidine HCl [From Demerol (PF)] Allergy (Unknown, Verified 06/13/17 08:00) morphine [Morphine] Allergy (Unknown, Verified 06/13/17 08:00) naproxen sodium [From Naprelan CR Dosepak] Allergy (Unknown, Verified 06/13/17 08:00) nitrofurantoin [From Macrobid] Allergy (Unknown, Verified 06/13/17 08:00) pantoprazole sodium [From Protonix] Allergy (Unknown, Verified 06/13/17 08:00) Penicillins Allergy (Unknown, Verified 06/13/17 08:00) Sulfa (Sulfonamide Antibiotics) Allergy (Unknown, Verified 06/13/17 08:00) tramadol HCl [From Ultracet] Allergy (Unknown, Verified 06/13/17 08:00) lamotrigine [From Lamictal] Allergy (Verified 06/13/17 08:00) rash Home Medications: Current Home Medications Albuterol Sulfate [Proair HFA] 2 puff IN Q4HP PRN 06/13/17 [History] Ammonium Lactate [Lac-Hydrin 12% Lotion 225Gm/Bottle] 1 gm TP Q12 06/13/17 [ History] Budesonide/Formoterol Fumarate [Symbicort 160-4.5 Mcg Inhaler] 2 puff IN Q12 06/18 [History] Diclofenac Sodium [Voltaren] 3 gm TP Q8HP PRN 06/13/17 [History] Furosemide [Lasix 20 mg Tablet] 30 mg PO Q12 06/13/17 [History] Insulin Glargine,Hum.rec.anlog [Lantus Insulin 100 Unit/mL] 55 unit SQ QAM 06/13 [History] Insulin Glargine,Hum.rec.anlog [Lantus Insulin 100 Unit/mL] 65 unit SQ QHS 06/13 [History] Insulin Lispro [Humalog Kwikpen U-100] 10 unit SQ ACHS 06/13/17 [History] Lactulose [Kristalose 10 gm Packet] 30 gm PO DAILY 06/13/17 [History] Liraglutide [Victoza 2-Armando] 1.8 mg SQ DAILY 06/13/17 [History] Melatonin 5 mg PO QHS 06/13/17 [History] Nitroglycerin [Nitro-Dur 5 mg (0.2 mg/Hr) Transdermal Patch] 1 patch TD DAILY 06/13/17 [History] Nitroglycerin [Nitrostat] 1 tab PO DAILYP PRN 06/13/17 [History] Past Medical History - Social History Smoking Status: Unknown if Ever Smoked Chew tobacco use (# tins/day): No Frequency of alcohol use: None Drug Abuse: None Family History: None Patient has suicidal ideation: No Patient has homicidal ideation: No - Past Medical History Cardiac Medical History: Reports: Hx Congestive Heart Failure, Hx Coronary Artery Disease, Hx Heart Attack - 2 STENTS, Hx Hypercholesterolemia, Hx Hypertension, Hx Peripheral Vascular Disease Denies: Hx Heart Murmur Pulmonary Medical History: Reports: Hx Asthma, Hx Bronchitis, Hx COPD - WEARS 2 LNC 24HRS/DAY, Hx Sleep Apnea Denies: Hx Pneumonia, Hx Respiratory Failure, Hx Tuberculosis Neurological Medical History: Reports: Hx Migraine. Denies: Hx Cerebrovascular Accident, Hx Seizures Endocrine Medical History: Reports: Hx Diabetes Mellitus Type 2, Hx Hyperthyroidism, Hx Hypothyroidism Renal/ Medical History: Reports: Hx End Stage Renal Disease - Stage IV, no dialysis yet, Hx Renal Insufficiency. Denies: Hx Peritoneal Dialysis Malignancy Medical History: GI Medical History: Reports: Hx Gastroesophageal Reflux Disease. Denies: Hx Pancreatitis Musculoskeltal Medical History: Denies Hx Arthritis, Reports Hx Fibromyalgia, Reports Hx Muscle Weakness Psychiatric Medical History: Reports: Hx Bipolar Disorder, Hx Depression, Hx Post Traumatic Stress Disorder, Hx Schizophrenia Traumatic Medical History: Infectious Medical History: Past Surgical History: Reports: Hx Cardiac Catheterization, Hx Section - x2, Hx Coronary Artery Bypass Graft, Hx Coronary Stent - x2, Hx Hysterectomy, Hx Orthopedic Surgery - christine knee surgery, christine feet surgery, Hx Tubal Ligation - Immunizations Hx Diphtheria, Pertussis, Tetanus Vaccination: Yes Hx Pneumococcal Vaccination: 04/02/13 Review of Systems - Review of Systems Constitutional: No symptoms reported Cardiovascular: No symptoms reported Respiratory: No symptoms reported Gastrointestinal: See HPI Neurological/Psychological: See HPI -: Yes All other systems reviewed and negative Physical Exam - Vital signs Vitals: Resp Pulse Ox 11 L 100 06/13/17 07:51 06/13/17 07:51 - Notes Notes: PHYSICAL EXAM GENERAL: Alert, interacts well. LUNGS: Clear to auscultation bilaterally, no wheezes, rales, or rhonchi. No respiratory distress. HEART: Regular rate and rhythm. No murmurs, gallops, or rubs. ABDOMEN: Tympanic, moderately distended, obese female with moderate epigastric tender. No guarding, rebound, or rigidity.. Bowel sounds present in all 4 quadrants. EXTREMITIES: Moves all 4 extremities spontaneously. No edema, radial and dorsalis pedis pulses 2/4 bilaterally. No cyanosis. NEUROLOGICAL: Alert and oriented x4. Normal speech. PSYCH: Normal affect, normal mood. SKIN: Warm, dry, normal turgor. No rashes or lesions noted. Course - Re-evaluation Re-evalutation: 06/13/17 10:35 Patient is a 49-year-old female is hemodynamically stable, no acute distress and afebrile. Presentation concerning for bowel obstruction. 06/13/17 12:55 Acute abdomen shows abnormal gas pattern, will send for CT of the abdomen and pelvis with IV and p.o. contrast. Psych at the bedside recommending medication changes and if she is medically cleared will stay overnight to assess in the morning due to medication changes 06/13/17 14:02 Not able to obtain an IV at this time and patient support that is in place is not available for IV contrast. 06/13/17 15:49 CT the abdomen pelvis shows evidence of a partial small bowel obstruction. Patient not able to tolerate p.o. at all. 06/13/17 16:28 Patient is a been admitted to Dr. Walter for small bowel obstruction. NG tube placed at the bedside with clear secretions. Patient agreeable with plan - Vital Signs Vital signs: Temp Pulse Resp BP Pulse Ox 98 F 97 20 137/65 H 95 06/13/17 19:30 06/13/17 19:30 06/13/17 19:30 06/13/17 19:30 06/13/17 19:30 - Laboratory Result Diagrams: 06/13/17 10:07 06/13/17 10:07 Laboratory results interpreted by me: 06/13/17 06/13/17 06/13/17 10:07 10:07 10:07 WBC 11.6 H Hgb 9.9 L Hct 31.0 L MCV 79 L MCH 25.5 L RDW 19.6 H Seg Neutrophils % 83.2 H Lymphocytes % 12.1 L Absolute Neutrophils 9.6 H Est GFR (Non-Af Amer) 57 L Glucose 163 H Alkaline Phosphatase 201 H Urine Protein 30 H Ur Leukocyte Esterase TRACE H Urine Ascorbic Acid 40 H - Diagnostic Test Radiology reviewed: Image reviewed, Reports reviewed Discharge - Discharge Clinical Impression: SBO (small bowel obstruction) Condition: Stable Disposition: ADMITTED INPATIENT Admitting Provider: Surgicalist [facility] Unit Admitted: Surgical Floor
--- NOTE | 2017-06-13 09:55 | RADIOLOGY REPORT (SQ) ---
EXAM DESCRIPTION: ACUTE ABDOMEN SERIES COMPLETED DATE/TIME: 06/13/2017 9:02 am REASON FOR STUDY: vomiting, abdominal pain COMPARISON: Chest film 02/06/2017 CT abdomen pelvis 01/17/2017 KUB 11/26/2015 NUMBER OF VIEWS: Three views. TECHNIQUE: Frontal chest, supine abdomen and upright abdomen radiographic images acquired. LIMITATIONS: Morbid obesity FINDINGS: CHEST: Lungs clear of infiltrates. Stable moderate cardiomegaly. Right-sided permanent c entral line tip superior vena cava. No acute bony findings. FREE AIR: No gross subdiaphragmatic free air BOWEL GAS PATTERN: Abnormal bowel gas pattern. Stomach and small bowel are distended in the mid abdo men. Few distal colon air-filled loops, nondistended. This may reflect a small bowel obstruction. CALCIFICATIONS: No suspicious calcifications. HARDWARE: None in the abdomen. SOFT TISSUES: No gross mass or suggestion of organomegaly. BONES: No acute fracture. No worrisome bone lesions. OTHER: No other significant finding. IMPRESSION: Abnormal bowel gas pattern with distended stomach and proximal small bowel. This could indicate a small bowel obstruction. Stable cardiomegaly. No acute infiltrates. No gross plain film evidence of free intraperitoneal air. TECHNICAL DOCUMENTATION: JOB ID: [id number] [employer]- All Rights Reserved
[2017-06-13 10:21] LABS: ABSOLUTE BASOPHILS # (AUTO) 0.1 10^3/uL (0.0-0.2); ABSOLUTE EOSINOPHILS # (AUTO) 0.1 10^3/uL (0.0-0.6); ABSOLUTE LYMPHOCYTES (AUTO) 1.4 10^3/uL (0.5-4.7); ABSOLUTE MONOCYTES (AUTO) 0.4 10^3/uL (0.1-1.4); ABSOLUTE NEUT (AUTO) 9.6 10^3/uL (1.7-8.2); BASOPHILS % (AUTO) 0.6 % (0-2); EOSINOPHILS % (AUTO) 0.7 % (0-6); HEMOGLOBIN 9.9 g/dL (12.0-15.5); HGB HCT DIFFERENCE -1.3; LYMPHOCYTES % (AUTO) 12.1 % (13-45); MEAN CORPUSCULAR HEMOGLOBIN 25.5 pg (27.0-33.4); MEAN CORPUSCULAR HGB CONC 32.1 g/dL (32.0-36.0); MEAN CORPUSCULAR VOLUME 79 fl (80-97); MONOCYTES % (AUTO) 3.4 % (3-13); RED CELL DISTRIBUTION WIDTH 19.6 % (11.5-14.0); SEGMENTED NEUTROPHILS % (AUTO) 83.2 % (42-78); WHITE BLOOD COUNT 11.6 10^3/uL (4.0-10.5)
[2017-06-13 10:23] LABS: APPEARANCE,URINE CLEAR; BILIRUBIN,URINE NEGATIVE (NEGATIVE); GLUCOSE, URINE NEGATIVE (NEGATIVE); KETONES,URINE NEGATIVE (NEGATIVE); LEUKOCYTE ESTERASE,URINE TRACE (NEGATIVE); NITRITE,URINE NEGATIVE (NEGATIVE); PROTEIN,URINE 30 mg/dL (NEGATIVE); URINE SPECIFIC GRAVITY 1.019; UROBILINOGEN,URINE NEGATIVE mg/dL (<2.0)
[2017-06-13 10:42] LABS: ALANINE AMINOTRANSFERASE 21 U/L (9-52); ALBUMIN 4.3 g/dL (3.5-5.0); ALKALINE PHOSPHATASE 201 U/L (38-126); ANION GAP 15 (5-19); ASPARTATE AMINO TRANSFERASE 18 U/L (14-36); BILIRUBIN,DIRECT 0.2 mg/dL (0.0-0.4); BILIRUBIN,TOTAL 0.3 mg/dL (0.2-1.3); BLOOD UREA NITROGEN 16 mg/dL (7-20); CALCIUM 9.9 mg/dL (8.4-10.2); CARBON DIOXIDE 29 mmol/L (22-30); CHLORIDE 98 mmol/L (98-107); GLUCOSE 163 mg/dL (75-110); LIPASE 57.1 U/L (23-300); POTASSIUM 4.1 mmol/L (3.6-5.0); SODIUM 141.7 mmol/L (137-145); TOTAL PROTEIN 8.1 g/dL (6.3-8.2)
[2017-06-13] MEDS ORDERED: ONDANSETRON HCL INJ/PF 4 MG/2 ML SDV IV ONE (12:31)
[2017-06-13] MEDS ORDERED: HYDROMORPHONE HCL INJ/PF 2 MG/ML AMPULE IV ONE (13:51)
--- NOTE | 2017-06-13 16:04 | RADIOLOGY REPORT (SQ) ---
EXAM DESCRIPTION: CT ABD/PELVIS ORAL ONLY COMPLETED DATE/TIME: 06/13/2017 3:53 pm REASON FOR STUDY: possible SBO COMPARISON: 01/17/2017 TECHNIQUE: CT scan of the abdomen and pelvis performed without oral contrast and no intravenous cont rast. Images reviewed with lung, soft tissue, and bone windows. Reconstructed coronal and sagittal MP R images reviewed. All images stored on PACS. All CT scanners at this facility use dose modulation, iterative reconstruction, and/or weight based d osing when appropriate to reduce radiation dose to as low as reasonably achievable (ALARA). [facility]: Dose Right [facility]: CareDose [facility]: Dose Right [facility]: Teradose 4D [facility]: Smart [employer] RADIATION DOSE: CT Rad equipment meets quality standard of care and radiation dose reduction techniq ues were employed. CTDIvol: 21.1 mGy. DLP: 1198 mGy-cm. mGy. LIMITATIONS: None. FINDINGS: LOWER CHEST: Midzone atelectasis. NON-CONTRASTED LIVER, SPLEEN, ADRENALS: Evaluation limited by lack of IV contrast. No identified sign ificant masses. PANCREAS: Atrophic. GALLBLADDER: No identified stones by CT criteria. No inflammatory changes to suggest cholecystitis. RIGHT KIDNEY AND URETER: No suspicious masses. Assessment limited by lack of IV contrast. No signif icant calcifications. No hydronephrosis or hydroureter. LEFT KIDNEY AND URETER: No suspicious masses. Assessment limited by lack of IV contrast. No signifi cant calcifications. No hydronephrosis or hydroureter. AORTA AND RETROPERITONEUM: No aneurysm. No retroperitoneal masses or adenopathy. BOWEL AND PERITONEAL CAVITY: Mild proximal small bowel dilatation with gastric distension. There is a transition zone in the pelvis but without discrete reason for partial bowel obstruction. APPENDIX: Normal. PELVIS, BLADDER, AND ABDOMINAL WALL: Bladder normal. No masses. BONES: No significant findings. OTHER: No other significant finding. IMPRESSION: Partial small bowel obstruction without etiology identified. TECHNICAL DOCUMENTATION: JOB ID: [id number] Quality ID # [id number]: Final reports with documentation of one or more dose reduction techniques (e.g., Au tomated exposure control, adjustment of the mA and/or kV according to patient size, use of iterative reconstruction technique) 2010 [employer]- All Rights Reserved
[2017-06-13] MEDS: NORMAL SALINE 1000 ML 1,000 ML IV PRN ×2 (17:22→19:45)
--- NOTE | 2017-06-13 17:50 | PDOC H&P ---
History of Present Illness Admission Date/PCP: 06/13/17 17:06 Patient complains of: abdominal pains with N/V History of Present Illness: SANTOS NAVARRO is a 57 year old female Past Medical History Cardiac Medical History: Reports: Congestive Heart Failure, Coronary Artery Disease, Myocardial Infarction - 2 STENTS, Hyperlipidema, Hypertension, Peripheral Vascular Disease Denies: Heart Murmur Pulmonary Medical History: Reports: Asthma, Bronchitis, Chronic Obstructive Pulmonary Disease (COPD) - WEARS 2 LNC 24HRS/DAY, Sleep Apnea Denies: Pneumonia, Respiratory Failure, Tuberculosis Neurological Medical History: Reports: Migraine Denies: Seizures Endocrine Medical History: Reports: Diabetes Mellitus Type 2, Hyperthyroidism, Hypothyroidism Renal/ Medical History: Reports: End Stage Renal Disease - Stage IV, no dialysis yet Malignancy Medical History: GI Medical History: Reports: Gastroesophageal Reflux Disease Musculoskeltal Medical History: Reports: Fibromyalgia Denies: Arthritis Psychiatric Medical History: Reports: Bipolar Disorder, Depression, Post Traumatic Stress Disorder Hematology: Denies: Anemia, Hemophilia, Sickle Cell Disease, Bleeding Tendencies Infectious Medical History: Past Surgical History Past Surgical History: Reports: Cardiac Catheterization, Section - x2, Coronary Artery Bypass Graft, Coronary Stent - x2, Hysterectomy, Orthopedic Surgery - christine knee surgery, christine feet surgery, Tubal Ligation Denies: Amputation Social History Smoking Status: Unknown if Ever Smoked Frequency of Alcohol Use: None Hx Recreational Drug Use: No Drugs: None Hx Prescription Drug Abuse: Yes - Advance Directive Resuscitation Status: Full Code Family History Family History: None Parental Family History Reviewed: Yes Children Family History Reviewed: No Sibling(s) Family History Reviewed.: No Medication/Allergy Home Medications: Amitriptyline HCl [Elavil 150 mg Tablet] 1 tab PO DAILY 01/17/17 Aripiprazole [Abilify 30 MG Tablet] 15 mg PO Q12 01/17/17 Benztropine Mesylate [Cogentin 1 mg Tablet] 1 tab PO BID 01/17/17 Bupropion HCl [Bupropion HCl Sr] 150 mg PO QHS 01/17/17 Duloxetine HCl [Cymbalta] 60 mg PO Q12 01/17/17 Ferrous Sulfate [Feosol 325 mg Tablet] 325 mg PO BID 01/17/17 Gabapentin [Neurontin 300 mg Capsule] 300 mg PO Q8 01/17/17 Levothyroxine Sodium [Synthroid 0.05 mg Tablet] 50 mcg PO DAILY 01/17/17 Magnesium Oxide [Mag-Ox 400 mg Tablet] 400 mg PO BID 01/17/17 Naloxegol Oxalate [Movantik 25 mg Tablet] 25 mg PO QAM 01/17/17 Olmesartan Medoxomil [Benicar] 20 mg PO DAILY 01/17/17 Omeprazole 40 mg PO Q12 01/17/17 Saxagliptin Hydrochloride [Onglyza] 2.5 mg PO DAILY 01/17/17 Simvastatin [Zocor 20 mg Tablet] 20 mg PO QHS 01/17/17 Trazodone HCl [Desyrel] 300 mg PO QHS 01/17/17 Furosemide [Lasix] 40 mg PO DAILY #0 01/25/17 Meclizine HCl [Antivert 25 mg Tablet] 25 mg PO TID PRN #20 tablet 01/29/17 Oxycodone HCl/Acetaminophen [Percocet 7.5-325 mg Tablet] 1 tab PO Q12 03/23/17 Allergies/Adverse Reactions: cephalexin monohydrate [From Keflex] Allergy (Unknown, Verified 06/13/17 08:00) codeine [Codeine] Allergy (Unknown, Verified 06/13/17 08:00) dicyclomine HCl [From Bentyl] Allergy (Unknown, Verified 06/13/17 08:00) hydrocodone bitartrate [From Vicodin] Allergy (Unknown, Verified 06/13/17 08:00) meloxicam [From Mobic] Allergy (Unknown, Verified 06/13/17 08:00) meperidine HCl [From Demerol (PF)] Allergy (Unknown, Verified 06/13/17 08:00) morphine [Morphine] Allergy (Unknown, Verified 06/13/17 08:00) naproxen sodium [From Naprelan CR Dosepak] Allergy (Unknown, Verified 06/13/17 08:00) nitrofurantoin [From Macrobid] Allergy (Unknown, Verified 06/13/17 08:00) pantoprazole sodium [From Protonix] Allergy (Unknown, Verified 06/13/17 08:00) Penicillins Allergy (Unknown, Verified 06/13/17 08:00) Sulfa (Sulfonamide Antibiotics) Allergy (Unknown, Verified 06/13/17 08:00) tramadol HCl [From Ultracet] Allergy (Unknown, Verified 06/13/17 08:00) lamotrigine [From Lamictal] Allergy (Verified 06/13/17 08:00) rash Review of Systems Constitutional: PRESENT: headache(s) Eyes: PRESENT: other - no visual /hearing problems Nose, Mouth, and Throat: PRESENT: headache(s) Cardiovascular: PRESENT: other - no chest pains Respiratory: PRESENT: other - no cough Gastrointestinal: PRESENT: abdominal pain, nausea, vomiting Genitourinary: PRESENT: other - no dysuria Musculoskeletal: PRESENT: other - no joint swelling Integumentary: PRESENT: other - no rash Neurological: PRESENT: other - no seizures Psychiatric: PRESENT: anxiety Endocrine: PRESENT: other - no polyuria/polydipsia Hematologic/Lymphatic: PRESENT: other - no easy bruisability Physical Exam Vital Signs: Temp Pulse Resp BP Pulse Ox 17 141/84 H 98 06/13/17 17:02 06/13/17 17:02 06/13/17 17:02 General appearance: PRESENT: mild distress, obese Head exam: PRESENT: atraumatic Eye exam: PRESENT: conjunctiva pink Ear exam: PRESENT: normal external ear exam Mouth exam: PRESENT: moist, tongue midline Neck exam: PRESENT: full ROM Respiratory exam: PRESENT: clear to auscultation christine Cardiovascular exam: PRESENT: RRR Pulses: PRESENT: normal radial pulses Vascular exam: PRESENT: normal capillary refill GI/Abdominal exam: PRESENT: soft, tenderness - mild diffuse tenderness Rectal exam: PRESENT: deferred Extremities exam: PRESENT: full ROM Musculoskeletal exam: PRESENT: ambulatory Neurological exam: PRESENT: alert, oriented to person, oriented to place, oriented to time, oriented to situation Psychiatric exam: PRESENT: anxious, appropriate affect Skin exam: PRESENT: normal color, warm Results Impressions: Abdomen/Pelvis CT 06/13/17 00:00 IMPRESSION: Partial small bowel obstruction without etiology identified. Acute Abdomen Series 06/13/17 08:24 IMPRESSION: Abnormal bowel gas pattern with distended stomach and proximal small bowel. This could indicate a small bowel obstruction. Stable cardiomegaly. No acute infiltrates. No gross plain film evidence of free intraperitoneal air. Assessment & Plan - Time Time Spent: 30 to 50 Minutes - Inpatient Certification Medical Necessity: Significant Comorbidiites Make Outpatient Treatment Too Risky , Need For IV Fluids, Risk of Diagnosis Which Will Require Inpatient Eval/Care/ Monitoring - Plan Summary Plan Summary: NGT Hydrate Pain mx Hospitalist consult for medical comorbidities
[2017-06-13] MEDS ORDERED: ONDANSETRON HCL INJ/PF 4 MG/2 ML SDV IV PRN (18:03)
[2017-06-13] MEDS: HYDROMORPHONE HCL INJ/PF 2 MG/ML AMPULE IV PRN (19:56)
[2017-06-13] MEDS ORDERED: DEXTROSE 50%-WATER SYRINGE 25 GM/50 ML DOSE IV PRN (21:56)
[2017-06-13] MEDS ORDERED: INSULIN LISPRO 100 UNIT/ML 3 ML VIAL SUBCUT PRN (21:56)
[2017-06-13] MEDS ORDERED: DEXTROSE 40% GEL 15 GM TUBE X 2 PO PRN (21:56)
[2017-06-13] MEDS ORDERED: GLUCAGON,HUMAN RECOMB 1 MG INJ IM PRN (21:56)
[2017-06-13] MEDS ORDERED: DEXTROSE 50%-WATER SYRINGE 12.5 GM/25 ML DOSE IV PRN (21:56)
[2017-06-13] MEDS ORDERED: DEXTROSE 40% GEL 15 GM TUBE PO PRN (21:56)
[2017-06-14 04:49] LABS: ABSOLUTE EOSINOPHILS # (AUTO) 0.1 10^3/uL (0.0-0.6); ABSOLUTE LYMPHOCYTES (AUTO) 2.4 10^3/uL (0.5-4.7); ABSOLUTE MONOCYTES (AUTO) 0.8 10^3/uL (0.1-1.4); ABSOLUTE NEUT (AUTO) 6.2 10^3/uL (1.7-8.2); BASOPHILS % (AUTO) 0.3 % (0-2); EOSINOPHILS % (AUTO) 1.2 % (0-6); HEMATOCRIT 28.6 % (36.0-47.0); HGB HCT DIFFERENCE -1.6; LYMPHOCYTES % (AUTO) 24.8 % (13-45); MEAN CORPUSCULAR HEMOGLOBIN 25.3 pg (27.0-33.4); MEAN CORPUSCULAR HGB CONC 31.5 g/dL (32.0-36.0); MEAN CORPUSCULAR VOLUME 80 fl (80-97); MONOCYTES % (AUTO) 8.4 % (3-13); PROTHROMBIN TIME 14.6 SEC (11.4-15.4); RED BLOOD COUNT 3.56 10^6/uL (3.72-5.28); RED CELL DISTRIBUTION WIDTH 19.7 % (11.5-14.0); SEGMENTED NEUTROPHILS % (AUTO) 65.3 % (42-78); WHITE BLOOD COUNT 9.5 10^3/uL (4.0-10.5)
[2017-06-14 05:00] LABS: ANION GAP 9 (5-19); BLOOD UREA NITROGEN 15 mg/dL (7-20); CARBON DIOXIDE 29 mmol/L (22-30); CHLORIDE 104 mmol/L (98-107); CREATININE RESULT 1.14 mg/dL (0.52-1.25); GLUCOSE 115 mg/dL (75-110); POTASSIUM 4.1 mmol/L (3.6-5.0); SODIUM 141.8 mmol/L (137-145)
[2017-06-14] MEDS: HYDROMORPHONE HCL INJ/PF 2 MG/ML AMPULE IV PRN (05:33)
[2017-06-14 08:16] VITALS: BP 111/51
--- NOTE | 2017-06-14 09:26 | PDOC PROGRESS REPORT ---
Subjective Progress Note for:: 06/14/17 Subjective:: l Reason For Visit: PARTIAL SBO,DEPRESSION,BIPOLAR,ANEMIA Physical Exam Vital Signs: Temp Pulse Resp BP Pulse Ox 98.0 F 91 18 111/51 L 100 06/14/17 08:16 06/14/17 08:16 06/14/17 08:16 06/14/17 08:16 06/14/17 08:16 Intake & Output 06/13/17 06/14/17 06/15/17 06:59 06:59 06:59 Intake Total 1650 Balance 1650 Weight 148.9 kg Exam: NGT 200 ccs greenish fluid Abdomen soft nontender Results Laboratory Results: 06/14/17 04:02 06/14/17 04:02 06/14/17 06/14/17 04:02 04:02 WBC 9.5 RBC 3.56 L Hgb 9.0 L Hct 28.6 L MCV 80 MCH 25.3 L MCHC 31.5 L RDW 19.7 H Plt Count 264 Seg Neutrophils % 65.3 Lymphocytes % 24.8 Monocytes % 8.4 Eosinophils % 1.2 Basophils % 0.3 Absolute Neutrophils 6.2 Absolute Lymphocytes 2.4 Absolute Monocytes 0.8 Absolute Eosinophils 0.1 Absolute Basophils 0.0 Sodium 141.8 Potassium 4.1 Chloride 104 Carbon Dioxide 29 Anion Gap 9 BUN 15 Creatinine 1.14 Est GFR ( Amer) 59 L Est GFR (Non-Af Amer) 49 L Glucose 115 H Calcium 9.0 Impressions: Abdomen/Pelvis CT 06/13/17 00:00 IMPRESSION: Partial small bowel obstruction without etiology identified. Acute Abdomen Series 06/13/17 08:24 IMPRESSION: Abnormal bowel gas pattern with distended stomach and proximal small bowel. This could indicate a small bowel obstruction. Stable cardiomegaly. No acute infiltrates. No gross plain film evidence of free intraperitoneal air. Assessment & Plan - Time Time Spent with patient: 15-24 minutes - Plan Summary Plan Summary: + Flatus with no abd tenderness, Start Clears
--- NOTE | 2017-06-14 16:17 | PDOC DISCHARGE SUMMARY ---
Discharge Summary (SDC) - Discharge Final Diagnosis: partial small bowel obstruction Discharge Date: 06/14/17 Condition: Stable Referrals: JASSON MARTINI MD [ACTIVE STAFF] - Discharge Diet: As Tolerated Discharge Activity: Activity As Tolerated Home Care Assistance: None Needed Report the Following to Your Physician Immediately: Nausea, Vomiting, Increase in Pain, Fever over 101 Degrees, Unusual Bleeding, Urinary Infection Signs
--- NOTE | 2017-06-14 20:37 | PSYCHOLOGICAL NOTE ---
Psych Note - Psych Note Psych Note: Patient is a 57 year old female who presented to the ED for medical complaint of abdominal pain and nausea. A psychiatric consult was ordered to address increased depression with a psychiatric history. Her outpatient provider is Caitlin Larry at [facility],her last visit was 2 months ago, she typically goes monthly, her last visit she was unable to attend due to medical issues, and her medications were called in as a courtesy. She was able to state her medication regimen and dosages. These are what is listed in her summary. She stated she had not slept well in 2 days. She identified 2 months ago she had to have 5 blood transfusions due to anemia and her family stopping talking/interacting with her as a result due to their druze (Restorationism). She commented this has been difficult with the holidays and nobody visiting her. She stated she enjoys reading books and has a friend whom she called while in the ED to apologize to since they had a recent falling out. She initially stated she had diagnoses of depression and anxiety. When she was informed of some possible medication changes she stated she is diagnosed Bipolar and Schizophrenia. She identified her main concerns at this time are depression, sleep, and [facility] on [address] not providing her prescriptions anymore due to an owed balance on her account. She reported Dr. Cano is her PCM and he stopped her Ambien 20MG 5 months ago due to it putting her into a deep sleep. She stated she sees a cancer doctor for the anemia, most recent was yesterday, and she received Vitamin B12 shot in stomach. She acknowledged previous hospitalizations in [facility]. She stated the last one was "years ago." Patient was alert and oriented to person, place, time and situation. Mood was euthymic with congruent affect. She denied SI/HI and these were not presenting concerns. She did not appear to be responding to internal stimuli AEB fair eye contact, answering questions appropriately when addressed, staying on topic, and carrying on dialogue conversation. Thought processes were organized and linear. Conversational speech was WNL for rate, tone and prosody. Intellectual abilities are estimated to be average. Insight, judgment and impulse control are fair AEB seeking medical attention for abdominal pain after it did not subside. Diagnosis: V62.89 (Z65.8) Other Prolblem Related to Psychosocial Circumstances (Family Discord surrounding druze- Restorationism and blood transfusions patient had to have 1-2 months ago). 296.80 (F31.9) Unspecified Bipolar and Related Disorder by History per patient 298.9 (F29) Unspecified Schizophrenia Spectrum and Other Psychotic Disorder by History per patient Impression/Plan: Patient psychiatric cleared. She does not meet [place] 122[place] IVC criteria. She denied SI/HI and there was no observed psychosis. None of these were presenting concerns. Area of interest was the recent family discord and increased depression as a result. Per ED Physician patient is being medically admitted for small bowel obstruction. Consulted with Dr. Britton regarding the management and care of patient. Medication recommendations made by the psychiatric medical provider in direct relation to home medications listed in summary: Concern for Serotonin shut down and Dopamine depletion given she is prescribed multiple medications that effect these neurotransmitters. Discontinue Trazodone 300MG QHS Discontinue Elavil 150MG QD Discontinue Abilify 15MG Q12 Decrease Wellbutrin to 75MG QAM Decrease Cymbalta to 60MG QD The above information was provided to the attending ED Physician but because of medical admit orders need to be submitted by hospitalist. Provided the information to the hospitalist in the ED yesterday while he was in Pod 5.
== END 2017-06-14 16:37 | disposition home or self-care (01) ==
LOC: ER 07:39 → EH 17:06 → INTOOBSV 17:06 → 5 19:25
PROVIDERS: ATTEND Internal Medicine Geriatric Medicine
DX: K56.600 Partial intestinal obstruction, unspecified as to cause (principal); I13.0 Hypertensive heart and chronic kidney disease with heart failure and stage 1 through stage 4 chronic kidney disease, or unspecified chronic kidney disease; N18.4 Chronic kidney disease, stage 4 (severe); E11.22 Type 2 diabetes mellitus with diabetic chronic kidney disease; I50.9 Heart failure, unspecified; I73.9 Peripheral vascular disease, unspecified; J44.9 Chronic obstructive pulmonary disease, unspecified; E66.9 Obesity, unspecified; D50.9 Iron deficiency anemia, unspecified; K21.9 Gastro-esophageal reflux disease without esophagitis; E78.5 Hyperlipidemia, unspecified; F31.9 Bipolar disorder, unspecified; F29 Unspecified psychosis not due to a substance or known physiological condition; E03.9 Hypothyroidism, unspecified; Z65.8 Other specified problems related to psychosocial circumstances; Z68.42 Body mass index [BMI] 45.0-49.9, adult; Z95.1 Presence of aortocoronary bypass graft; Z95.5 Presence of coronary angioplasty implant and graft; Z98.51 Tubal ligation status; Z90.710 Acquired absence of both cervix and uterus; Z79.899 Other long term (current) drug therapy
CPT/HCPCS: 99285; 96374; 96375; 36415 ×2; 82962 ×2; 83690; 85025 ×2; 85610; 80048; 80053; 81001; 74022; 74176; G0378 ×3; J1170 ×2; J2405; J7030

== ENCOUNTER 2017-07-17 10:39 | Emergency (ER) | payer MEDICARE, MEDICAID ==
--- NOTE | 2017-07-17 11:51 | ER Document Report ---
ED GI Bleed / Rectal Pain - General Chief Complaint: Rectal Bleeding Stated Complaint: RECTAL BLEEDING Time Seen by Provider: 07/17/17 10:54 Notes: The patient is a 57-year-old female, past medical history chronic angina, presents with 5 days of blood in her stool. She had this in the past and was told it was hemorrhoids. She had a normal EGD and colonoscopy during her last episode about a year ago. Patient was taken off her aspirin and Plavix by her primary care physician because of the prior bleed. Patient was feeling slightly lightheaded when she stands and when EMS arrived, her blood pressure was 90s/50s. Patient denies nausea, vomiting, abdominal pain, blood thinner use , rectal pain, fevers, urinary symptoms or rash. TRAVEL OUTSIDE OF THE [place] IN LAST 30 DAYS: No - Related Data Allergies/Adverse Reactions: cephalexin monohydrate [From Keflex] Allergy (Unknown, Verified 06/13/17 08:00) codeine [Codeine] Allergy (Unknown, Verified 06/13/17 08:00) dicyclomine HCl [From Bentyl] Allergy (Unknown, Verified 06/13/17 08:00) hydrocodone bitartrate [From Vicodin] Allergy (Unknown, Verified 06/13/17 08:00) meloxicam [From Mobic] Allergy (Unknown, Verified 06/13/17 08:00) meperidine HCl [From Demerol (PF)] Allergy (Unknown, Verified 06/13/17 08:00) morphine [Morphine] Allergy (Unknown, Verified 06/13/17 08:00) naproxen sodium [From Naprelan CR Dosepak] Allergy (Unknown, Verified 06/13/17 08:00) nitrofurantoin [From Macrobid] Allergy (Unknown, Verified 06/13/17 08:00) pantoprazole sodium [From Protonix] Allergy (Unknown, Verified 06/13/17 08:00) Penicillins Allergy (Unknown, Verified 06/13/17 08:00) Sulfa (Sulfonamide Antibiotics) Allergy (Unknown, Verified 06/13/17 08:00) tramadol HCl [From Ultracet] Allergy (Unknown, Verified 06/13/17 08:00) lamotrigine [From Lamictal] Allergy (Verified 06/13/17 08:00) rash Past Medical History - General Information source: Patient - Social History Smoking Status: Never Smoker Chew tobacco use (# tins/day): No Frequency of alcohol use: None Drug Abuse: None Family History: None Patient has suicidal ideation: No Patient has homicidal ideation: No - Past Medical History Cardiac Medical History: Reports: Hx Congestive Heart Failure, Hx Coronary Artery Disease, Hx Heart Attack - 2 STENTS, Hx Hypercholesterolemia, Hx Hypertension, Hx Peripheral Vascular Disease Denies: Hx Heart Murmur Pulmonary Medical History: Reports: Hx Asthma, Hx Bronchitis, Hx COPD - WEARS 2 LNC 24HRS/DAY, Hx Sleep Apnea Denies: Hx Pneumonia, Hx Respiratory Failure, Hx Tuberculosis Neurological Medical History: Reports: Hx Migraine. Denies: Hx Cerebrovascular Accident, Hx Seizures Endocrine Medical History: Reports: Hx Diabetes Mellitus Type 2, Hx Hyperthyroidism, Hx Hypothyroidism Renal/ Medical History: Reports: Hx End Stage Renal Disease - Stage IV, no dialysis yet, Hx Renal Insufficiency. Denies: Hx Peritoneal Dialysis Malignancy Medical History: GI Medical History: Reports: Hx Gastroesophageal Reflux Disease. Denies: Hx Pancreatitis Musculoskeltal Medical History: Denies Hx Arthritis, Reports Hx Fibromyalgia, Reports Hx Muscle Weakness Psychiatric Medical History: Reports: Hx Bipolar Disorder, Hx Depression, Hx Post Traumatic Stress Disorder, Hx Schizophrenia Traumatic Medical History: Infectious Medical History: Past Surgical History: Reports: Hx Cardiac Catheterization, Hx Section - x2, Hx Coronary Artery Bypass Graft, Hx Coronary Stent - x2, Hx Hysterectomy, Hx Orthopedic Surgery - christine knee surgery, christine feet surgery, Hx Tubal Ligation - Immunizations Hx Diphtheria, Pertussis, Tetanus Vaccination: Yes Hx Pneumococcal Vaccination: 04/02/13 Review of Systems - Review of Systems Notes: REVIEW OF SYSTEMS: CONSTITUTIONAL: -fevers, -chills EENT: -eye pain, -difficulty swallowing, -nasal congestion CARDIOVASCULAR: -chest pain, -syncope. RESPIRATORY: -cough, -SOB GASTROINTESTINAL: -abdominal pain, -nausea, -vomiting, -diarrhea GENITOURINARY: -dysuria, -hematuria, +blood in stool MUSCULOSKELETAL: -back pain, -neck pain SKIN: -rash or skin lesions. HEMATOLOGIC: -easy bruising or bleeding. LYMPHATIC: -swollen, enlarged glands. NEUROLOGICAL: -altered mental status or loss of consciousness, -headache, - neurologic symptoms PSYCHIATRIC: -anxiety, -depression. ALL OTHER SYSTEMS REVIEWED AND NEGATIVE. Physical Exam - Vital signs Vitals: Temp Pulse Resp BP Pulse Ox 97.6 F 87 16 126/65 H 98 07/17/17 10:46 07/17/17 10:46 07/17/17 10:46 07/17/17 10:46 07/17/17 10:46 - Notes Notes: PHYSICAL EXAMINATION: GENERAL: Well-appearing, well-nourished and in no acute distress. HEAD: Atraumatic, normocephalic. EYES: Pupils equal round and reactive to light, extraocular movements intact, sclera anicteric, conjunctiva are normal. ENT: nares patent, oropharynx clear without exudates. Moist mucous membranes. NECK: Normal range of motion, supple without lymphadenopathy LUNGS: Breath sounds clear to auscultation bilaterally and equal. No wheezes rales or rhonchi. HEART: Regular rate and rhythm without murmurs ABDOMEN: Soft, nontender, normoactive bowel sounds. No guarding, no rebound. No masses appreciated. RECTAL: Bloody stool. No tenderness and no hemorrhoids seen. EXTREMITIES: Normal range of motion, no pitting or edema. No cyanosis. NEUROLOGICAL: Cranial nerves grossly intact. Normal speech, normal gait. Normal sensory and motor exams. PSYCH: Normal mood, normal affect. SKIN: Warm, Dry, normal turgor, no rashes or lesions noted. Course - Re-evaluation Re-evalutation: Pt has a hemoglobin of 6.5 with slight hypotension. She has bright red blood per rectum, but is no longer on any blood thinners. 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 Will transfuse 1 unit pRBCs and transfer to facility with GI. Pt is requesting transfer to [facility]. CXR shows possible vascular congestion, pneumonia, aspiration pneumonia or atelectasis. Patient is not having any shortness of breath, cough, sputum or hypoxia. Suspect that this may be atelectasis because she is not in any respiratory distress and does not have any respiratory symptoms. CXR only ordered because EMS report said that patient may have had a fever, but pt is afebrile without any anti-pyretics. 07/17/17 14:35 Called over to [facility] and left message. Awaiting callback. 07/17/17 14:54 [facility] and awaiting callback from Hospitalist. 07/17/17 15:[address] Barker and he has accepted patient to [facility]. Pt receiving blood and dextrose-containing IVF for her slight hypoglycemia. Her BP has remained 110's/60's while in the ER. - Vital Signs Vital signs: Temp Pulse Resp BP Pulse Ox 97.6 F 87 18 126/65 H 98 07/17/17 10:46 07/17/17 10:46 07/17/17 10:46 07/17/17 10:46 07/17/17 10:46 - Laboratory Result Diagrams: 07/17/17 13:49 07/17/17 13:49 Laboratory results interpreted by me: 07/17/17 07/17/17 07/17/17 13:49 13:49 13:49 WBC 10.8 H RBC 2.66 L Hgb 6.6 L Hct 21.1 L MCV 79 L MCH 24.9 L MCHC 31.4 L RDW 19.6 H APTT 36.9 H Carbon Dioxide 31 H BUN 34 H Creatinine 1.78 H Est GFR ( Amer) 35 L Est GFR (Non-Af Amer) 29 L Glucose 64 L Alkaline Phosphatase 143 H Crossmatch 07/17/17 13:49 WBC RBC Hgb Hct MCV MCH MCHC RDW APTT Carbon Dioxide BUN Creatinine Est GFR ( Amer) Est GFR (Non-Af Amer) Glucose Alkaline Phosphatase Crossmatch See Detail - Diagnostic Test Radiology reviewed: Image reviewed, Reports reviewed Radiology results interpreted by me: CXR: CARDIAC ENLARGEMENT. VASCULAR CONGESTION. ADDITIONAL BIBASILAR OPACITIES MAY REPRESENT SUBSEGMENTAL ATELECTASIS, ASPIRATION, OR PNEUMONIA. Procedures - Additional Procedures IV insertion Time performed: 15:44 Additional Procedures: IV insertion Notes: 20 gauge angiocatheter placed in right brachial vein under US guidance. Discharge - Discharge Clinical Impression: Lower GI bleed Anemia Qualifiers: Anemia type: unspecified type Qualified Code(s): D64.9 - Anemia, unspecified Condition: Stable Disposition: [facility] Referrals: JASSON MARTINI MD [Primary Care Provider] - Follow up as needed
--- NOTE | 2017-07-17 11:56 | RADIOLOGY REPORT (SQ) ---
EXAM DESCRIPTION: CHEST SINGLE VIEW COMPLETED DATE/TIME: 07/17/2017 11:48 am REASON FOR STUDY: fever COMPARISON: 02/06/2017 NUMBER OF VIEWS: One view. TECHNIQUE: Single frontal radiographic view of the chest acquired. LIMITATIONS: None. FINDINGS: LUNGS AND PLEURA: Bibasilar opacities. Lungs and pleural spaces otherwise grossly clear. MEDIASTINUM AND HILAR STRUCTURES: No masses or contour abnormality. HEART AND VASCULATURE: Cardiac enlargement. Vascular congestion. BONES: No acute findings. HARDWARE: None in the chest. OTHER: No other significant finding. IMPRESSION: CARDIAC ENLARGEMENT. VASCULAR CONGESTION. ADDITIONAL BIBASILAR OPACITIES MAY REPRESENT SUBSEGMENTAL ATELECTASIS, ASPIRATION, OR PNEUMONIA. TECHNICAL DOCUMENTATION: JOB ID: [id number] [employer]- All Rights Reserved
[2017-07-17 14:12] LABS: ABSOLUTE EOSINOPHILS # (AUTO) 0.2 10^3/uL (0.0-0.6); ABSOLUTE LYMPHOCYTES (AUTO) 2.5 10^3/uL (0.5-4.7); ABSOLUTE MONOCYTES (AUTO) 0.7 10^3/uL (0.1-1.4); ABSOLUTE NEUT (AUTO) 7.4 10^3/uL (1.7-8.2); BASOPHILS % (AUTO) 0.4 % (0-2); HEMATOCRIT 21.1 % (36.0-47.0); LYMPHOCYTES % (AUTO) 22.8 % (13-45); MEAN CORPUSCULAR HEMOGLOBIN 24.9 pg (27.0-33.4); MEAN CORPUSCULAR HGB CONC 31.4 g/dL (32.0-36.0); MEAN CORPUSCULAR VOLUME 79 fl (80-97); MONOCYTES % (AUTO) 6.6 % (3-13); RED BLOOD COUNT 2.66 10^6/uL (3.72-5.28); RED CELL DISTRIBUTION WIDTH 19.6 % (11.5-14.0); SEGMENTED NEUTROPHILS % (AUTO) 68.2 % (42-78); TOTAL CELLS COUNTED % (AUTO) 100 %; WHITE BLOOD COUNT 10.8 10^3/uL (4.0-10.5)
[2017-07-17 14:17] LABS: HEMOGLOBIN 6.6 g/dL (12.0-15.5)
[2017-07-17 14:19] LABS: ALANINE AMINOTRANSFERASE 21 U/L (9-52); ALBUMIN 3.6 g/dL (3.5-5.0); ALKALINE PHOSPHATASE 143 U/L (38-126); ANION GAP 9 (5-19); ASPARTATE AMINO TRANSFERASE 17 U/L (14-36); BILIRUBIN,DIRECT 0.2 mg/dL (0.0-0.4); BILIRUBIN,TOTAL 0.2 mg/dL (0.2-1.3); BLOOD UREA NITROGEN 34 mg/dL (7-20); CALCIUM 9.7 mg/dL (8.4-10.2); CARBON DIOXIDE 31 mmol/L (22-30); CHLORIDE 103 mmol/L (98-107); GLUCOSE 64 mg/dL (75-110); LIPASE 66.1 U/L (23-300); POTASSIUM 4.6 mmol/L (3.6-5.0); SODIUM 142.5 mmol/L (137-145); TOTAL PROTEIN 6.7 g/dL (6.3-8.2)
[2017-07-17 14:20] LABS: INTERNATIONAL RATION (INR) 0.97; PROTHROMBIN TIME 13.6 SEC (11.4-15.4)
[2017-07-17 14:21] LABS: PARTIAL THROMBOPLASTIN TIME 36.9 SEC (23.5-35.8)
[2017-07-17] MEDS ORDERED: DEXTROSE 5%-1/2 NORMAL SALINE 1,000 ML IV ONE (14:33)
[2017-07-17] MEDS ORDERED: NORMAL SALINE 250 ML IV PRN (14:33)
[2017-07-17 14:43] LABS: PLATELET COUNT 222 10^3/uL (150-450)
[2017-07-17 17:04] LABS: APPEARANCE,URINE CLOUDY; BILIRUBIN,URINE NEGATIVE (NEGATIVE); COLOR,URINE YELLOW; GLUCOSE, URINE NEGATIVE (NEGATIVE); KETONES,URINE NEGATIVE (NEGATIVE); LEUKOCYTE ESTERASE,URINE NEGATIVE (NEGATIVE); NITRITE,URINE NEGATIVE (NEGATIVE); PROTEIN,URINE NEGATIVE (NEGATIVE); URINE SPECIFIC GRAVITY 1.013; UROBILINOGEN,URINE NEGATIVE mg/dL (<2.0)
[2017-07-17 19:52] VITALS: BP 114/66
== END 2017-07-17 20:11 | disposition short-term general hospital (02) ==
LOC: ER 10:39
DX: K92.2 Gastrointestinal hemorrhage, unspecified (principal); D64.9 Anemia, unspecified; I95.9 Hypotension, unspecified; R09.89 Other specified symptoms and signs involving the circulatory and respiratory systems; I51.7 Cardiomegaly; E11.649 Type 2 diabetes mellitus with hypoglycemia without coma; I10 Essential (primary) hypertension; I25.10 Atherosclerotic heart disease of native coronary artery without angina pectoris; I25.2 Old myocardial infarction; J44.9 Chronic obstructive pulmonary disease, unspecified; Z88.1 Allergy status to other antibiotic agents; Z88.5 Allergy status to narcotic agent; Z88.8 Allergy status to other drugs, medicaments and biological substances; Z88.0 Allergy status to penicillin; Z88.2 Allergy status to sulfonamides; Z95.1 Presence of aortocoronary bypass graft
CPT/HCPCS: 99285; 96360; 86900; 86901; 36415; 36430; 86850; 82962; 83690; 85025; 85610; 85730; 82272; 80053; 81001; 86920; 71045; P9016

== ENCOUNTER 2017-08-03 10:18 | Outpatient (CLI) | payer MEDICARE, MEDICAID ==
[2017-08-03 10:51] LABS: HEMOGLOBIN 8.1 g/dL (12.0-15.5); MEAN CORPUSCULAR HEMOGLOBIN 27.3 pg (27.0-33.4); MEAN CORPUSCULAR HGB CONC 33.8 g/dL (32.0-36.0); MEAN CORPUSCULAR VOLUME 81 fl (80-97); PLATELET COUNT 303 10^3/uL (150-450); RED BLOOD COUNT 2.97 10^6/uL (3.72-5.28); RED CELL DISTRIBUTION WIDTH 18.4 % (11.5-14.0)
[2017-08-03] MEDS ORDERED: NORMAL SALINE 250 ML IV PRN (11:27)
[2017-08-03 15:44] VITALS: BP 118/65
== END 2017-08-03 16:14 | disposition home or self-care (01) ==
LOC: II 10:18 → 3S 10:53 → II 16:14
PROVIDERS: ATTEND Internal Medicine Medical Oncology
PROC: 30243N1 Transfusion of Nonautologous Red Blood Cells into Central Vein, Percutaneous Approach (ICD-10-PCS; principal; 2017-08-03)
DX: D64.9 Anemia, unspecified (principal)
CPT/HCPCS: 86900; 86901; 36415; 36430; 86850; 86920; P9016; A9270 ×2; J1940; 96374

== ENCOUNTER 2017-12-24 17:37 | Inpatient (IN) | payer MEDICARE, MEDICAID ==
--- NOTE | 2017-12-24 17:57 | ER Document Report ---
HPI - HPI Pain Level: 5 Notes: Patient is a 57-year-old female who presents to the ED complaining of left arm and forearm pain status post fall yesterday. Patient states that she landed on her left side when she tripped over the edging of the carpet on the floor. This event was witnessed and she did not hit her head or lose consciousness. She has not had any nausea or vomiting. Patient states that she has not wanted to move her arm because of the pain since then. Patient states that she had no pain prior. She still able to move her hand and wrist without difficulties otherwise. They have not noticed any deformity or bruising. Patient also complains of urinary burning, urgency, and frequency over the last several days. 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 She is otherwise eating and drinking without any difficulties. She is having normal bowel movements. Denies any headache, fever , head injury, neck pain, changes in vision/speech/mentation/hearing, URI, sore throat, chest pain, palpitations, syncope, cough, shortness of breath, wheeze, dyspnea, abdominal pain, nausea/vomiting/diarrhea, urinary retention, back pain , loss of control of bowel or bladder, numbness/tingling, saddle anesthesia, or rash. - ROS Systems Reviewed and Negative: Yes All other systems reviewed and negative - REPRODUCTIVE Reproductive: DENIES: : Past Medical History - Social History Smoking Status: Unknown if Ever Smoked Family History: None - Past Medical History Cardiac Medical History: Reports: Hx Congestive Heart Failure, Hx Coronary Artery Disease, Hx Heart Attack - 2 STENTS, Hx Hypercholesterolemia, Hx Hypertension, Hx Peripheral Vascular Disease Denies: Hx Heart Murmur Pulmonary Medical History: Reports: Hx Asthma, Hx Bronchitis, Hx COPD - WEARS 2 LNC 24HRS/DAY, Hx Sleep Apnea Denies: Hx Pneumonia, Hx Respiratory Failure, Hx Tuberculosis Neurological Medical History: Reports: Hx Migraine. Denies: Hx Cerebrovascular Accident, Hx Seizures Endocrine Medical History: Reports: Hx Diabetes Mellitus Type 2, Hx Hyperthyroidism, Hx Hypothyroidism Renal/ Medical History: Reports: Hx End Stage Renal Disease - Stage IV, no dialysis yet, Hx Renal Insufficiency. Denies: Hx Peritoneal Dialysis Malignancy Medical History: GI Medical History: Reports: Hx Gastroesophageal Reflux Disease. Denies: Hx Pancreatitis Musculoskeltal Medical History: Denies Hx Arthritis, Reports Hx Fibromyalgia, Reports Hx Muscle Weakness Psychiatric Medical History: Reports: Hx Bipolar Disorder, Hx Depression, Hx Post Traumatic Stress Disorder, Hx Schizophrenia Traumatic Medical History: Infectious Medical History: Past Surgical History: Reports: Hx Cardiac Catheterization, Hx Section - x2, Hx Coronary Artery Bypass Graft, Hx Coronary Stent - x2, Hx Hysterectomy, Hx Orthopedic Surgery - christine knee surgery, christine feet surgery, Hx Tubal Ligation - Immunizations Hx Diphtheria, Pertussis, Tetanus Vaccination: Yes Hx Pneumococcal Vaccination: 04/02/13 Vertical Provider Document - CONSTITUTIONAL Agree With Documented VS: Yes Notes: PHYSICAL EXAMINATION: GENERAL: Well-appearing, well-nourished and in no acute distress. Obese. Head: atraumatic Eyes: PERRLA, EOMI b/l. NECK: Normal range of motion, supple without lymphadenopathy. Non-tender. Spurling negative. No rigidity/meningismus. LUNGS: Breath sounds clear to auscultation bilaterally and equal. No wheezes rales or rhonchi. HEART: Regular rate and rhythm without murmurs, rubs, gallops. Abd: Obese. Soft, non-tender. BS present x4. No rigidity. No CVA tenderness b/l. Musculoskeletal: Lt humerus/arm: LROM to passive. LROM to active due to pain. Strength 4+/5 due to pain. + tenderness to the mid shaft of the humerus. + mild swelling. No erythema or warmth. No deformity or ecchymosis. No shoulder tenderness or elbow tenderness. Rt Forearm: No obvious ecchymosis, deformity, erythema. + tenderness to the mid forearm. N/V intact distal. No wrist/hand tenderness. Extremities: No cyanosis, clubbing, or edema b/l. Peripheral pulses 2+. Capillary refill less than 3 seconds. NEUROLOGICAL: Cranial nerves grossly intact. Normal speech, ambulates with SPC. Normal sensory, motor exams PSYCH: Normal mood, normal affect. SKIN: Warm, Dry, normal turgor, no rashes or lesions noted. - INFECTION CONTROL TRAVEL OUTSIDE OF THE [place] IN LAST 30 DAYS: No Course - Re-evaluation Re-evalutation: 12/24/17 17:57 Pt declined any tylenol/motrin. 12/24/17 18:39 Reviewed XR which shows a displaced spiral appearing fracture left distal humerus. Reviewed with Dr. Treviño- consult ortho. I called and spoke with Dr. Patel. He recommends splint and admission and he will see her tomorrow as it will need surgery. Reviewed with family who is in agreement. I did order tylenol due to long bone fracture event though she declined initially. Labs, EKG, CXR ordered. 12/24/17 18:[address] Sharp who accepted patient for admit to tele. 12/24/17 19:28 Pt also noted to have a UTI. Pt has an extensive allergy list. Cipro given PO today. - Laboratory Result Diagrams: 12/24/17 20:00 12/24/17 21:06 Procedures - Immobilization Left Arm Time completed: 21:00 Pre-Proc Neuro Vasc Exam: Normal Immobilizer type: Long arm posterior Performed by: PCT Post-Proc Neuro Vasc Exam: Normal, Unchanged from pre-exam Discharge - Discharge Clinical Impression: Fracture of humerus, left, closed Qualifiers: Encounter type: initial encounter Humerus Location: distal Fracture morphology : other fracture Fracture alignment: displaced Qualified Code(s): S42.492A - Other displaced fracture of lower end of left humerus, initial encounter for closed fracture Condition: Stable Disposition: ADMITTED INPATIENT Admitting Provider: [facility] Admitted: Telemetry
[2017-12-24] MEDS ORDERED: ACETAMINOPHEN 325 MG TABLET PO ONE (18:27)
--- NOTE | 2017-12-24 18:32 | RADIOLOGY REPORT (SQ) ---
EXAM DESCRIPTION: FOREARM LEFT COMPLETED DATE/TIME: 12/24/2017 6:15 pm REASON FOR STUDY: pain s/p injury COMPARISON: None. NUMBER OF VIEWS: Two views left forearm. LIMITATIONS: None. FINDINGS: Incompletely assessed distal humerus fracture. Forearm bones intact. OTHER: No other significant finding. IMPRESSION: Distal humerus fracture. No forearm fracture. TECHNICAL DOCUMENTATION: JOB ID: [id number] Reading location - IP/workstation name: [email or web address]
--- NOTE | 2017-12-24 18:44 | RADIOLOGY REPORT (SQ) ---
EXAM DESCRIPTION: HUMERUS LEFT COMPLETED DATE/TIME: 12/24/2017 6:27 pm REASON FOR STUDY: pain s/p injury COMPARISON: None. NUMBER OF VIEWS: Two views of the left humerus. LIMITATIONS: None. FINDINGS: Comminuted spiral fracture through the distal humeral shaft. Nearly 9 cm butterfly fragme nt. Remainder of the fracture is 1 shaft diameter laterally displaced. Minimal posterior displaceme nt. OTHER: No other significant finding. IMPRESSION: Comminuted distal left humerus fracture. TECHNICAL DOCUMENTATION: JOB ID: [id number] Reading location - IP/workstation name: [facility] RE[facility]ABILITATION [email or web address]
[2017-12-24 19:22] LABS: AMORPHOUS SEDIMENT,URINE TRACE /HPF; APPEARANCE,URINE SLIGHTLY-CLOUDY; BILIRUBIN,URINE NEGATIVE (NEGATIVE); COLOR,URINE YELLOW; GLUCOSE, URINE NEGATIVE (NEGATIVE); KETONES,URINE NEGATIVE (NEGATIVE); LEUKOCYTE ESTERASE,URINE LARGE (NEGATIVE); NITRITE,URINE POSITIVE (NEGATIVE); PROTEIN,URINE NEGATIVE (NEGATIVE); URINE SPECIFIC GRAVITY 1.009; UROBILINOGEN,URINE NEGATIVE mg/dL (<2.0)
[2017-12-24] MEDS ORDERED: CIPROFLOXACIN HCL 500 MG TABLET PO ONE (19:28)
--- NOTE | 2017-12-24 19:32 | RADIOLOGY REPORT (SQ) ---
EXAM DESCRIPTION: CHEST SINGLE VIEW COMPLETED DATE/TIME: 12/24/2017 7:22 pm REASON FOR STUDY: pre-op COMPARISON: 07/17/2017. NUMBER OF VIEWS: One view. TECHNIQUE: Single frontal radiographic view of the chest acquired. LIMITATIONS: None. FINDINGS: LUNGS AND PLEURA: No overt failure or pneumonia. Portable technique mildly limits. No ev idence of pneumothorax. MEDIASTINUM AND HILAR STRUCTURES: Stable contours allowing for differences in technique. HEART AND VASCULAR STRUCTURES: Heart normal in size. Normal vasculature. BONES: No acute findings. HARDWARE: Right IJ line, tip to the cavoatrial junction. OTHER: No other significant finding. IMPRESSION: No acute cardiopulmonary disease suspected. TECHNICAL DOCUMENTATION: JOB ID: [id number] [employer]- All Rights Reserved Reading location - IP/workstation name: [email or web address]
[2017-12-24] MEDS ORDERED: OXYCODONE HCL IR 5 MG TABLET PO ONE (19:46)
[2017-12-24 20:20] LABS: ABSOLUTE BASOPHILS # (AUTO) 0.1 10^3/uL (0.0-0.2); ABSOLUTE EOSINOPHILS # (AUTO) 0.2 10^3/uL (0.0-0.6); ABSOLUTE MONOCYTES (AUTO) 0.7 10^3/uL (0.1-1.4); ABSOLUTE NEUT (AUTO) 7.4 10^3/uL (1.7-8.2); BASOPHILS % (AUTO) 0.7 % (0-2); EOSINOPHILS % (AUTO) 1.7 % (0-6); HEMOGLOBIN 9.9 g/dL (12.0-15.5); LYMPHOCYTES % (AUTO) 19.6 % (13-45); MEAN CORPUSCULAR HEMOGLOBIN 26.3 pg (27.0-33.4); MEAN CORPUSCULAR VOLUME 80 fl (80-97); MONOCYTES % (AUTO) 6.7 % (3-13); PLATELET COUNT 257 10^3/uL (150-450); RED BLOOD COUNT 3.77 10^6/uL (3.72-5.28); RED CELL DISTRIBUTION WIDTH 18.8 % (11.5-14.0); SEGMENTED NEUTROPHILS % (AUTO) 71.3 % (42-78); TOTAL CELLS COUNTED % (AUTO) 100 %; WHITE BLOOD COUNT 10.3 10^3/uL (4.0-10.5)
[2017-12-24 20:25] LABS: INTERNATIONAL RATION (INR) 1.01; PROTHROMBIN TIME 13.8 SEC (11.4-15.4)
--- NOTE | 2017-12-24 21:15 | EKG REPORT ---
SEVERITY:- BORDERLINE ECG - SINUS TACHYCARDIA BORDERLINE T WAVE ABNORMALITIES : Confirmed by: Maurice Nieto 24-Dec-2017 21:15:21
[2017-12-24 21:32] LABS: ALANINE AMINOTRANSFERASE 19 U/L (9-52); ALBUMIN 4.4 g/dL (3.5-5.0); ALKALINE PHOSPHATASE 204 U/L (38-126); ANION GAP 11 (5-19); ASPARTATE AMINO TRANSFERASE 29 U/L (14-36); BILIRUBIN,DIRECT 0.4 mg/dL (0.0-0.4); BILIRUBIN,TOTAL 0.4 mg/dL (0.2-1.3); BLOOD UREA NITROGEN 22 mg/dL (7-20); CALCIUM 9.9 mg/dL (8.4-10.2); CARBON DIOXIDE 30 mmol/L (22-30); CHLORIDE 103 mmol/L (98-107); GLUCOSE 149 mg/dL (75-110); POTASSIUM 4.3 mmol/L (3.6-5.0); SODIUM 143.5 mmol/L (137-145); TOTAL PROTEIN 8.9 g/dL (6.3-8.2)
--- NOTE | 2017-12-24 22:41 | PDOC CONSULTATION ---
Consultation Consult Date: 12/24/17 Consult reason:: Left distal humerus fracture History of Present Illness Admission Date/PCP: 12/24/17 19:03 JASSON MARTINI History of Present Illness: SANTOS NAVARRO is a 57 year old female The patient is a 57-year-old black female known to me from previous encounters who now presents with left elbow pain status post a fall onto an outstretched left nondominant upper extremity. Patient was evaluated in emergency room her left distal humerus fracture is identified. The patient has been splinted. Orthopedics is consulted for fracture management. Past Medical History Cardiac Medical History: Reports: Congestive Heart Failure, Coronary Artery Disease, Myocardial Infarction - 2 STENTS, Hyperlipidema, Hypertension, Peripheral Vascular Disease Denies: Heart Murmur Pulmonary Medical History: Reports: Asthma, Bronchitis, Chronic Obstructive Pulmonary Disease (COPD) - WEARS 2 LNC 24HRS/DAY, Sleep Apnea Denies: Pneumonia, Respiratory Failure, Tuberculosis Neurological Medical History: Reports: Migraine Denies: Seizures Endocrine Medical History: Reports: Diabetes Mellitus Type 2, Hyperthyroidism, Hypothyroidism Renal/ Medical History: Reports: End Stage Renal Disease - Stage IV, no dialysis yet Malignancy Medical History: GI Medical History: Reports: Gastroesophageal Reflux Disease Musculoskeltal Medical History: Reports: Fibromyalgia Denies: Arthritis Psychiatric Medical History: Reports: Bipolar Disorder, Depression, Post Traumatic Stress Disorder Hematology: Denies: Anemia, Hemophilia, Sickle Cell Disease, Bleeding Tendencies Infectious Medical History: Past Surgical History Past Surgical History: Reports: Cardiac Catheterization, Section - x2, Coronary Artery Bypass Graft, Coronary Stent - x2, Hysterectomy, Orthopedic Surgery, Tubal Ligation Denies: Amputation Social History Information Source: Patient, [facility] Records Smoking Status: Unknown if Ever Smoked Frequency of Alcohol Use: None Hx Recreational Drug Use: No Drugs: None Hx Prescription Drug Abuse: Yes - Advance Directive Resuscitation Status: Full Code Family History Family History: None Parental Family History Reviewed: No Children Family History Reviewed: No Sibling(s) Family History Reviewed.: No Medication/Allergy Home Medications: Amitriptyline HCl [Elavil 150 mg Tablet] 1 tab PO DAILY 01/17/17 Aripiprazole [Abilify 30 MG Tablet] 15 mg PO Q12 01/17/17 Benztropine Mesylate [Cogentin 1 mg Tablet] 1 tab PO BID 01/17/17 Bupropion HCl [Bupropion HCl Sr] 150 mg PO QHS 01/17/17 Duloxetine HCl [Cymbalta] 60 mg PO Q12 01/17/17 Gabapentin [Neurontin 300 mg Capsule] 300 mg PO Q8 01/17/17 Levothyroxine Sodium [Synthroid 0.05 mg Tablet] 50 mcg PO DAILY 01/17/17 Magnesium Oxide [Mag-Ox 400 mg Tablet] 400 mg PO BID 01/17/17 Naloxegol Oxalate [Movantik 25 mg Tablet] 25 mg PO QAM 01/17/17 Olmesartan Medoxomil [Benicar] 20 mg PO DAILY 01/17/17 Omeprazole 40 mg PO Q12 01/17/17 Saxagliptin Hydrochloride [Onglyza] 2.5 mg PO DAILY 01/17/17 Simvastatin [Zocor 20 mg Tablet] 20 mg PO QPM 01/17/17 Trazodone HCl [Desyrel] 300 mg PO QHS 01/17/17 Oxycodone HCl/Acetaminophen [Percocet 7.5-325 mg Tablet] 1 tab PO Q12HP PRN Albuterol Sulfate [Proair HFA] 2 puff IN Q4HP PRN 06/13/17 Ammonium Lactate [Lac-Hydrin 12% Lotion 225Gm/Bottle] 1 gm TP Q12 06/13/17 Budesonide/Formoterol Fumarate [Symbicort 160-4.5 Mcg Inhaler] 2 puff IN Q12 06/18 Diclofenac Sodium [Voltaren] 3 gm TP Q8HP PRN 06/13/17 Furosemide [Lasix 20 mg Tablet] 30 mg PO Q12 06/13/17 Insulin Glargine,Hum.rec.anlog [Lantus Insulin 100 Unit/mL] 55 unit SQ QAM 06/13 Insulin Glargine,Hum.rec.anlog [Lantus Insulin 100 Unit/mL] 65 unit SQ QHS 06/13 Insulin Lispro [Humalog Kwikpen U-100] 10 unit SQ ACHS 06/13/17 Lactulose [Kristalose 10 gm Packet] 30 gm PO DAILY 06/13/17 Liraglutide [Victoza 2-Armando] 1.8 mg SQ DAILY 06/13/17 Melatonin 5 mg PO QHS 12/12/17 Nitroglycerin [Nitro-Dur 5 mg (0.2 mg/Hr) Transdermal Patch] 1 patch TD DAILY 06/13/17 Nitroglycerin [Nitrostat] 1 tab PO DAILYP PRN 06/13/17 Allergies/Adverse Reactions: cephalexin monohydrate [From Keflex] Allergy (Unknown, Verified 12/24/17 17:38) codeine [Codeine] Allergy (Unknown, Verified 12/24/17 17:38) dicyclomine HCl [From Bentyl] Allergy (Unknown, Verified 12/24/17 17:38) hydrocodone bitartrate [From Vicodin] Allergy (Unknown, Verified 12/24/17 17:38) meloxicam [From Mobic] Allergy (Unknown, Verified 12/24/17 17:38) meperidine HCl [From Demerol (PF)] Allergy (Unknown, Verified 12/24/17 17:38) morphine [Morphine] Allergy (Unknown, Verified 12/24/17 17:38) naproxen sodium [From Naprelan CR Dosepak] Allergy (Unknown, Verified 12/24/17 17:38) nitrofurantoin [From Macrobid] Allergy (Unknown, Verified 12/24/17 17:38) pantoprazole sodium [From Protonix] Allergy (Unknown, Verified 12/24/17 17:38) Penicillins Allergy (Unknown, Verified 12/24/17 17:38) Sulfa (Sulfonamide Antibiotics) Allergy (Unknown, Verified 12/24/17 17:38) tramadol HCl [From Ultracet] Allergy (Unknown, Verified 12/24/17 17:38) lamotrigine [From Lamictal] Allergy (Verified 12/24/17 17:38) rash Review of Systems All systems: as per PMH Physical Exam Vital Signs: Temp Pulse Resp BP Pulse Ox 37.0 C 104 H 20 147/86 H 100 12/24/17 20:25 12/24/17 20:25 12/24/17 20:25 12/24/17 20:25 12/24/17 20:25 General appearance: PRESENT: mild distress, morbidly obese Head exam: PRESENT: normocephalic Respiratory exam: PRESENT: unlabored Cardiovascular exam: PRESENT: RRR Pulses: PRESENT: normal radial pulses Vascular exam: PRESENT: normal capillary refill GI/Abdominal exam: PRESENT: soft Rectal exam: PRESENT: deferred Extremities exam: PRESENT: other - Left upper extremity immobilized in a posterior fiberglass splint. Fingertips are exposed. There is brisk capillary refill. Sensory examination is intact to light touch. Motor function is intact to digit extension and flexion. There is no other skin abnormalities. Neurological exam: PRESENT: alert, awake, oriented to person, oriented to place , oriented to time, oriented to situation. ABSENT: motor sensory deficit Psychiatric exam: PRESENT: appropriate affect, normal mood. ABSENT: homicidal ideation, suicidal ideation Skin exam: PRESENT: dry, intact, warm. ABSENT: cyanosis, rash Results Laboratory Results: 12/24/17 20:00 12/24/17 21:06 12/24/17 12/24/17 12/24/17 20:00 20:00 21:06 WBC 10.3 RBC 3.77 Hgb 9.9 L Hct 30.0 L MCV 80 MCH 26.3 L MCHC 33.0 RDW 18.8 H Plt Count 257 Seg Neutrophils % 71.3 Lymphocytes % 19.6 Monocytes % 6.7 Eosinophils % 1.7 Basophils % 0.7 Absolute Neutrophils 7.4 Absolute Lymphocytes 2.0 Absolute Monocytes 0.7 Absolute Eosinophils 0.2 Absolute Basophils 0.1 Sodium Cancelled 143.5 Potassium Cancelled 4.3 Chloride Cancelled 103 Carbon Dioxide Cancelled 30 Anion Gap Cancelled 11 BUN Cancelled 22 H Creatinine Cancelled 1.14 Est GFR ( Amer) Cancelled 59 L Est GFR (Non-Af Amer) Cancelled 49 L Glucose Cancelled 149 H Calcium Cancelled 9.9 Total Bilirubin Cancelled 0.4 AST Cancelled 29 ALT Cancelled 19 Alkaline Phosphatase Cancelled 204 H Total Protein Cancelled 8.9 H Albumin Cancelled 4.4 Impressions: Forearm X-Ray 12/24/17 17:52 IMPRESSION: Distal humerus fracture. No forearm fracture. Humerus X-Ray 12/24/17 17:52 IMPRESSION: Comminuted distal left humerus fracture. Chest X-Ray 12/24/17 18:41 IMPRESSION: No acute cardiopulmonary disease suspected. Status: Imported from PACS Assessment & Plan - Diagnosis (1) Fracture of humerus, left, closed Qualifiers: Encounter type: initial encounter Humerus Location: distal Fracture morphology: other fracture Fracture alignment: displaced Qualified Code(s): S42.492A - Other displaced fracture of lower end of left humerus, initial encounter for closed fracture Is this a current diagnosis for this admission?: Yes Plan: 57-year-old black female with a myriad of medical comorbidities now with a displaced left distal humerus fracture. From a fracture standpoint this would be best served with an open reduction internal fixation using combination of plates and screws. From a patient standpoint in light of her comorbidities is not clear to me that she would tolerate surgical intervention. Her perioperative risks including infection and potential neurovascular injury are relatively high and an alternative would be to treat this nonoperatively. Will await medical assessment of her surgical candidacy. - Time Time Spent: 50 to 70 Minutes Anticipated discharge: Other Within: Other
[2017-12-25] MEDS: OXYCODONE-ACETAMINOPHEN 5-325 MG TABLET PO PRN ×4 (01:09→17:26)
[2017-12-25] MEDS ORDERED: DEXTROSE 40% GEL 15 GM TUBE X 2 PO PRN (05:04)
[2017-12-25] MEDS ORDERED: DEXTROSE 40% GEL 15 GM TUBE PO PRN (05:04)
[2017-12-25] MEDS ORDERED: DEXTROSE 50%-WATER SYRINGE 25 GM/50 ML DOSE IV PRN (05:04)
[2017-12-25] MEDS ORDERED: GLUCAGON,HUMAN RECOMB 1 MG INJ IM PRN (05:04)
[2017-12-25] MEDS ORDERED: DEXTROSE 50%-WATER SYRINGE 12.5 GM/25 ML DOSE IV PRN (05:04)
[2017-12-25] MEDS: LANSOPRAZOLE 30 MG TAB.RAP.DR PO SCH (09:56)
[2017-12-25] MEDS: ENOXAPARIN SODIUM INJ 40 MG/0.4 ML DISP.SYRIN SUBCUT SCH (09:56)
--- NOTE | 2017-12-25 13:29 | PDOC H&P ---
History of Present Illness Admission Date/PCP: 12/24/17 19:03 [facility] Patient complains of: Fall with left arm pain History of Present Illness: SANTOS NAVARRO is a 57 year old female known to my practice who presented to the ED with left arm and forearm pain following incidental fall wile walking in her home. She reported outstretch of her upper extremity to break her fall. She noticed swelling around her left elbow joint and lower aspect of arm to which she applied ice pack. She contacted me after a day without improvement and worsening pain. She was advised to seek medical attention at the ED or nearest Urgent Care center. Her initial valuation in the ED revealed left spiral comminuted distal humerus fracture. Her urinalysis suggested possible UTI. She was advised hospitalization for further evaluation and management after orthopedic consultation with Dr. Patel and recommendation for surgical intervention. She denied any chest pain, palpitation, or loss of consciousness. No nausea, vomiting or abdominal pain. Patient reported burning upon urination, urgency, and frequency over the last several days. She was evaluated recently at the ED for similar symptoms and informed about possible slight UTI. No significant hematuria or flank pain. She denied fever or chills. Her morbidities include Congestive Heart Failure, Coronary Artery Disease with prior NV and stent angioplasty x 2, Hypertension, Hypercholesterolemia, Peripheral Vascular Disease, Obstructive sleep apnea, Asthma, COPD on supplemental oxygen at 2L/min via nasal cannula, Diabetes Mellitus Type 2, Stage 3 End Stage Renal Disease, GERD, Hypothyroidism, Migraine, Bipolar Disorder with Depression, Post Traumatic Stress Disorder, and chronic Schizophrenia Past Medical History Cardiac Medical History: Reports: Congestive Heart Failure, Coronary Artery Disease, Myocardial Infarction - 2 STENTS, Hyperlipidema, Hypertension, Peripheral Vascular Disease Denies: Heart Murmur Pulmonary Medical History: Reports: Asthma, Bronchitis, Chronic Obstructive Pulmonary Disease (COPD) - WEARS 2 LNC 24HRS/DAY, Sleep Apnea Denies: Pneumonia, Respiratory Failure, Tuberculosis Neurological Medical History: Reports: Migraine Denies: Seizures Endocrine Medical History: Reports: Diabetes Mellitus Type 2, Hyperthyroidism, Hypothyroidism Renal/ Medical History: Reports: End Stage Renal Disease - Stage IV, no dialysis yet Malignancy Medical History: GI Medical History: Reports: Gastroesophageal Reflux Disease Musculoskeltal Medical History: Reports: Fibromyalgia Denies: Arthritis Psychiatric Medical History: Reports: Bipolar Disorder, Depression, Post Traumatic Stress Disorder Hematology: Denies: Anemia, Hemophilia, Sickle Cell Disease, Bleeding Tendencies Infectious Medical History: Past Surgical History Past Surgical History: Reports: Cardiac Catheterization, Section - x2, Coronary Artery Bypass Graft, Coronary Stent - x2, Hysterectomy, Orthopedic Surgery, Tubal Ligation Denies: Amputation Social History Smoking Status: Never Smoker Frequency of Alcohol Use: None Hx Recreational Drug Use: No Drugs: None Hx Prescription Drug Abuse: No - Advance Directive Resuscitation Status: Full Code Family History Family History: None Parental Family History Reviewed: Yes Children Family History Reviewed: Yes Sibling(s) Family History Reviewed.: Yes Medication/Allergy Home Medications: Amitriptyline HCl [Elavil 150 mg Tablet] 1 tab PO DAILY 01/17/17 Aripiprazole [Abilify 30 MG Tablet] 15 mg PO Q12 01/17/17 Benztropine Mesylate [Cogentin 1 mg Tablet] 1 tab PO BID 01/17/17 Bupropion HCl [Bupropion HCl Sr] 150 mg PO QHS 01/17/17 Duloxetine HCl [Cymbalta] 60 mg PO Q12 01/17/17 Gabapentin [Neurontin 300 mg Capsule] 300 mg PO Q8 01/17/17 Levothyroxine Sodium [Synthroid 0.05 mg Tablet] 50 mcg PO DAILY 01/17/17 Magnesium Oxide [Mag-Ox 400 mg Tablet] 400 mg PO BID 01/17/17 Naloxegol Oxalate [Movantik 25 mg Tablet] 25 mg PO QAM 01/17/17 Omeprazole 40 mg PO Q12 01/17/17 Trazodone HCl [Desyrel] 300 mg PO QHS 01/17/17 Albuterol Sulfate [Proair HFA] 2 puff IN Q6HP PRN 06/13/17 Budesonide/Formoterol Fumarate [Symbicort 160-4.5 Mcg Inhaler] 2 puff IN Q12 06/18 Furosemide [Lasix 20 mg Tablet] 40 mg PO Q12 06/13/17 Insulin Glargine,Hum.rec.anlog [Lantus Insulin 100 Unit/mL] 50 unit SQ QAM 06/13 Insulin Glargine,Hum.rec.anlog [Lantus Insulin 100 Unit/mL] 65 unit SQ QHS 06/13 Insulin Lispro [Humalog Kwikpen U-100] 0 unit SQ .SLIDING SCALE 06/13/17 Melatonin 5 mg PO QHS 06/13/17 Nitroglycerin [Nitro-Dur 5 mg (0.2 mg/Hr) Transdermal Patch] 1 patch TD DAILY 06/13/17 Docusate Sodium 100 mg PO BID PRN 12/25/17 Liraglutide [Victoza 2-Armando] 1.8 mg SQ DAILY 12/25/17 Oxycodone HCl/Acetaminophen [Percocet 5-325 mg Tablet] 1 tab PO TID 12/25/17 Simvastatin [Zocor 20 mg Tablet] 20 mg PO QHS 12/25/17 Valsartan [Diovan 160 mg Tablet] 160 mg PO DAILY 12/25/17 Allergies/Adverse Reactions: cephalexin monohydrate [From Keflex] Allergy (Unknown, Verified 12/24/17 17:38) codeine [Codeine] Allergy (Unknown, Verified 12/24/17 17:38) dicyclomine HCl [From Bentyl] Allergy (Unknown, Verified 12/24/17 17:38) hydrocodone bitartrate [From Vicodin] Allergy (Unknown, Verified 12/24/17 17:38) meloxicam [From Mobic] Allergy (Unknown, Verified 12/24/17 17:38) meperidine HCl [From Demerol (PF)] Allergy (Unknown, Verified 12/24/17 17:38) morphine [Morphine] Allergy (Unknown, Verified 12/24/17 17:38) naproxen sodium [From Naprelan CR Dosepak] Allergy (Unknown, Verified 12/24/17 17:38) nitrofurantoin [From Macrobid] Allergy (Unknown, Verified 12/24/17 17:38) pantoprazole sodium [From Protonix] Allergy (Unknown, Verified 12/24/17 17:38) Penicillins Allergy (Unknown, Verified 12/24/17 17:38) Sulfa (Sulfonamide Antibiotics) Allergy (Unknown, Verified 12/24/17 17:38) lamotrigine [From Lamictal] Allergy (Verified 12/24/17 17:38) rash Review of Systems Constitutional: ABSENT: chills, fever(s), headache(s), weight gain, weight loss Eyes: ABSENT: visual disturbances Ears: ABSENT: hearing changes Nose, Mouth, and Throat: ABSENT: as per HPI, headache(s), mouth pain, sore throat, vertigo, other Cardiovascular: ABSENT: chest pain, dyspnea on exertion, edema, orthropnea, palpitations Respiratory: ABSENT: cough, hemoptysis Gastrointestinal: ABSENT: abdominal pain, constipation, diarrhea, hematemesis, hematochezia, nausea, vomiting Genitourinary: PRESENT: dysuria. ABSENT: as per HPI, difficulty urinating, hematuria, nocturia, other Musculoskeletal: PRESENT: deformity - related to multiple joints involvement with arthritis Integumentary: PRESENT: rash - bilateral stasis dermatitis lower leg region Neurological: ABSENT: abnormal gait, abnormal speech, confusion, dizziness, focal weakness, syncope Psychiatric: PRESENT: anxiety, depression. ABSENT: as per HPI, hallucinations, homidical ideation, suicidal ideation, other Endocrine: ABSENT: as per HPI, cold intolerance, flushing, heat intolerance, polydipsia, polyphagia, polyuria, other Hematologic/Lymphatic: ABSENT: easy bleeding, easy bruising, lymphadenopathy Allergic/Immunologic: ABSENT: seasonal rhinorrhea Physical Exam Vital Signs: Temp Pulse Resp BP Pulse Ox 98.2 F 43 L 17 152/87 H 100 12/25/17 11:02 12/25/17 11:02 12/25/17 11:02 12/25/17 11:02 12/25/17 11:02 Intake & Output 12/24/17 12/25/17 12/26/17 06:59 06:59 06:59 Intake Total 185 Balance 185 Weight 153.5 kg General appearance: PRESENT: mild distress - from pain in left upper extremity, morbidly obese Head exam: PRESENT: atraumatic, normocephalic Eye exam: PRESENT: conjunctiva pink, EOMI, PERRLA. ABSENT: scleral icterus Ear exam: PRESENT: normal external ear exam Mouth exam: PRESENT: moist, tongue midline Teeth exam: PRESENT: poor dentation Throat exam: ABSENT: post pharyngeal erythema, tonsillar erythema, tonsillar exudate, tonsillogmegaly, other Neck exam: PRESENT: full ROM. ABSENT: carotid bruit, JVD, lymphadenopathy, thyromegaly Respiratory exam: PRESENT: clear to auscultation christine, decreased breath sounds - at lung bases Cardiovascular exam: PRESENT: RRR. ABSENT: diastolic murmur, rubs, systolic murmur Pulses: PRESENT: +1 pedal pulses bilateral Vascular exam: PRESENT: normal capillary refill. ABSENT: pallor GI/Abdominal exam: PRESENT: normal bowel sounds, soft. ABSENT: distended, guarding, mass, organolmegaly, rebound, tenderness Rectal exam: PRESENT: deferred Extremities exam: PRESENT: pedal edema - chronic lower extremities and comparatively improving Musculoskeletal exam: PRESENT: deformity - from recent fall and left distal humerus fracture, tenderness - left arm/elbow region Neurological exam: PRESENT: alert, awake, oriented to person, oriented to place , oriented to time, oriented to situation, CN II-XII grossly intact. ABSENT: motor sensory deficit Psychiatric exam: PRESENT: appropriate affect, normal mood. ABSENT: homicidal ideation, suicidal ideation Skin exam: PRESENT: dry, rash - bilateral stasis chanegs to lower leg region, warm Results Laboratory Results: 12/24/17 20:00 12/24/17 21:06 12/24/17 12/24/17 12/24/17 20:00 20:00 21:06 WBC 10.3 RBC 3.77 Hgb 9.9 L Hct 30.0 L MCV 80 MCH 26.3 L MCHC 33.0 RDW 18.8 H Plt Count 257 Seg Neutrophils % 71.3 Lymphocytes % 19.6 Monocytes % 6.7 Eosinophils % 1.7 Basophils % 0.7 Absolute Neutrophils 7.4 Absolute Lymphocytes 2.0 Absolute Monocytes 0.7 Absolute Eosinophils 0.2 Absolute Basophils 0.1 Sodium Cancelled 143.5 Potassium Cancelled 4.3 Chloride Cancelled 103 Carbon Dioxide Cancelled 30 Anion Gap Cancelled 11 BUN Cancelled 22 H Creatinine Cancelled 1.14 Est GFR ( Amer) Cancelled 59 L Est GFR (Non-Af Amer) Cancelled 49 L Glucose Cancelled 149 H Calcium Cancelled 9.9 Total Bilirubin Cancelled 0.4 AST Cancelled 29 ALT Cancelled 19 Alkaline Phosphatase Cancelled 204 H Total Protein Cancelled 8.9 H Albumin Cancelled 4.4 Impressions: Forearm X-Ray 12/24/17 17:52 IMPRESSION: Distal humerus fracture. No forearm fracture. Humerus X-Ray 12/24/17 17:52 IMPRESSION: Comminuted distal left humerus fracture. Chest X-Ray 12/24/17 18:41 IMPRESSION: No acute cardiopulmonary disease suspected. Assessment & Plan - Diagnosis (1) Fall in home Qualifiers: Encounter type: initial encounter Qualified Code(s): W19.XXXA - Unspecified fall, initial encounter; Y92.009 - Unspecified place in unspecified non-institutional (private) residence as the place of occurrence of the external cause; Y92.009 - Unspecified place in unspecified non-institutional ( private) residence as the place of occurrence of the external cause Is this a current diagnosis for this admission?: Yes Plan: See admitting attending physician orders. (2) Fracture of humerus, left, closed Qualifiers: Encounter type: initial encounter Humerus Location: distal Fracture morphology: other fracture Fracture alignment: displaced Qualified Code(s): S42.492A - Other displaced fracture of lower end of left humerus, initial encounter for closed fracture Is this a current diagnosis for this admission?: Yes Plan: See admitting attending physician orders. (3) 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 Is this a current diagnosis for this admission?: Yes Plan: See admitting attending physician orders. (4) Chronic kidney disease Qualifiers: Chronic kidney disease stage: stage 3 (moderate) Qualified Code(s): N18.3 - Chronic kidney disease, stage 3 (moderate) Is this a current diagnosis for this admission?: Yes Plan: See admitting attending physician orders. (5) HTN (hypertension) Qualifiers: Hypertension type: essential hypertension Qualified Code(s): I10 - Essential (primary) hypertension Is this a current diagnosis for this admission?: Yes Plan: See admitting attending physician orders. (6) Coronary artery disease without angina pectoris Qualifiers: Coronary Disease-Associated Artery/Lesion type: [place] artery Is this a current diagnosis for this admission?: Yes Plan: See admitting attending physician orders. (7) Hx of coronary angioplasty Is this a current diagnosis for this admission?: Yes Plan: See admitting attending physician orders. (8) COPD mixed type Is this a current diagnosis for this admission?: Yes Plan: See admitting attending physician orders. (9) Asthma Qualifiers: Asthma complication type: uncomplicated Is this a current diagnosis for this admission?: Yes Plan: See admitting attending physician orders. (10) Bipolar 1 disorder, depressed Is this a current diagnosis for this admission?: Yes Plan: See admitting attending physician orders. (11) PTSD (post-traumatic stress disorder) Is this a current diagnosis for this admission?: Yes Plan: See admitting attending physician orders. (12) Chronic schizoaffective disorder Is this a current diagnosis for this admission?: Yes Plan: See admitting attending physician orders. (13) Chronic pain syndrome Is this a current diagnosis for this admission?: Yes Plan: See admitting attending physician orders. - Time Time Spent: 50 to 70 Minutes Medications reviewed and adjusted accordingly: Yes Anticipated discharge: Home with Homehealth Within: Other - Inpatient Certification Based on my medical assessment, after consideration of the patient's comorbidities, presenting symptoms, or acuity I expect that the services needed warrant INPATIENT care.: Yes I certify that my determination is in accordance with my understanding of Medicare's requirements for reasonable and necessary INPATIENT services [42 CFR 412.3e].: Yes Medical Necessity: Need Close Monitoring Due to Risk of Patient Decompensation, Need For IV Fluids, Need For Continuous Telemetry Monitoring, Need for Nebulizer Therapy and Monitoring of Response, Need for Surgery, Risk of Complication if Not Cared For in Hospital Post Hospital Care: D/C Wood Pole Treater Documentation - Plan Summary Plan Summary: See admitting attending physician orders.
[2017-12-25] MEDS ORDERED: DOCUSATE SODIUM 100 MG CAPSULE PO PRN (13:32)
[2017-12-25] MEDS ORDERED: ALBUTEROL SULFATE HFA (90 MCG/PUFF) 8 GM MDI (1 MDI/ER DISP) IH PRN (13:32)
[2017-12-25] MEDS ORDERED: CIPROFLOXACIN HCL 500 MG TABLET PO ONE (14:30)
[2017-12-25] MEDS ORDERED: ALBUTEROL SULFATE HFA (90 MCG/PUFF) 200 PUFF/8.5 GM MDI IH PRN (14:41)
[2017-12-25] MEDS ORDERED: (PENDING PHARMACY ID) (Liraglutide [Victoza 2-Pak] 1.8 MG) SQ SCH (15:00)
[2017-12-25] MEDS: GABAPENTIN 300 MG CAPSULE PO SCH ×2 (15:49→23:02)
[2017-12-25 17:12] LABS: CREATINE KINASE MB 0.26 ng/mL (<4.55)
[2017-12-25 17:15] LABS: TROPONIN I < 0.012 ng/mL
[2017-12-25] MEDS: MAGNESIUM OXIDE 400 MG TABLET PO SCH (17:26)
[2017-12-25] MEDS: INSULIN LISPRO 100 UNIT/ML 3 ML VIAL SUBCUT PRN ×2 (17:26→23:00)
[2017-12-25] MEDS ORDERED: (PENDING PHARMACY ID) (Trazodone Hcl [Desyrel] 300 MG) PO SCH (22:00)
[2017-12-25] MEDS ORDERED: FUROSEMIDE 20 MG TABLET PO SCH (22:00)
[2017-12-25] MEDS ORDERED: (PENDING PHARMACY ID) (Melatonin [Melatonin] 5 MG) PO SCH (22:00)
[2017-12-25] MEDS ORDERED: (PENDING PHARMACY ID) (Aripiprazole [Abilify 30 Mg Tablet] 15 MG) PO SCH (22:00)
[2017-12-25] MEDS: MELATONIN 5 MG TABLET PO SCH (22:58)
[2017-12-25] MEDS: BENZTROPINE MESYLATE 1 MG TABLET PO SCH (22:59)
[2017-12-25] MEDS: INSULIN GLARGINE,HUM.REC.ANLOG 300 UNIT/3 ML INSULN.PEN SUBCUT SCH (23:01)
[2017-12-25] MEDS: CIPROFLOXACIN HCL 500 MG TABLET PO SCH (23:02)
[2017-12-25] MEDS: BUPROPION HCL 75 MG TABLET PO SCH (23:02)
[2017-12-25] MEDS: FUROSEMIDE 40 MG TABLET PO SCH (23:03)
[2017-12-25] MEDS: DULOXETINE HCL 30 MG CAPSULE.DR PO SCH (23:04)
[2017-12-25] MEDS: ARIPIPRAZOLE 5 MG TABLET PO SCH (23:04)
[2017-12-25] MEDS: BUDESONIDE/FORMOTEROL 160-4.5 MCG 60 PUFF/6 GM MDI IH SCH (23:14)
[2017-12-25] MEDS: SIMVASTATIN 10 MG TABLET PO SCH (23:18)
[2017-12-25] MEDS: TRAZODONE HCL 50 MG TABLET PO SCH (23:19)
[2017-12-26 05:14] LABS: ABSOLUTE EOSINOPHILS # (AUTO) 0.2 10^3/uL (0.0-0.6); ABSOLUTE LYMPHOCYTES (AUTO) 1.9 10^3/uL (0.5-4.7); ABSOLUTE MONOCYTES (AUTO) 0.7 10^3/uL (0.1-1.4); ABSOLUTE NEUT (AUTO) 5.2 10^3/uL (1.7-8.2); BASOPHILS % (AUTO) 0.5 % (0-2); EOSINOPHILS % (AUTO) 2.5 % (0-6); HEMOGLOBIN 9.1 g/dL (12.0-15.5); LYMPHOCYTES % (AUTO) 23.9 % (13-45); MEAN CORPUSCULAR HEMOGLOBIN 26.1 pg (27.0-33.4); MEAN CORPUSCULAR HGB CONC 32.5 g/dL (32.0-36.0); MEAN CORPUSCULAR VOLUME 80 fl (80-97); MONOCYTES % (AUTO) 8.1 % (3-13); PLATELET COUNT 172 10^3/uL (150-450); RED BLOOD COUNT 3.49 10^6/uL (3.72-5.28); RED CELL DISTRIBUTION WIDTH 18.4 % (11.5-14.0); TOTAL CELLS COUNTED % (AUTO) 100 %
[2017-12-26 05:40] LABS: ALANINE AMINOTRANSFERASE 21 U/L (9-52); ALBUMIN 3.7 g/dL (3.5-5.0); ALKALINE PHOSPHATASE 162 U/L (38-126); ANION GAP 12 (5-19); ASPARTATE AMINO TRANSFERASE 19 U/L (14-36); BILIRUBIN,DIRECT 0.2 mg/dL (0.0-0.4); BILIRUBIN,TOTAL 0.2 mg/dL (0.2-1.3); BLOOD UREA NITROGEN 18 mg/dL (7-20); CALCIUM 9.4 mg/dL (8.4-10.2); CARBON DIOXIDE 30 mmol/L (22-30); CHLORIDE 101 mmol/L (98-107); GLUCOSE 161 mg/dL (75-110); SODIUM 143.3 mmol/L (137-145); TOTAL PROTEIN 7.2 g/dL (6.3-8.2)
[2017-12-26] MEDS: GABAPENTIN 300 MG CAPSULE PO SCH ×3 (06:31→23:05)
[2017-12-26] MEDS: LEVOTHYROXINE SODIUM 0.05 MG TABLET PO SCH (06:31)
--- NOTE | 2017-12-26 07:02 | PDOC PROGRESS REPORT ---
Subjective Progress Note for:: 12/26/17 Reason For Visit: FRACTURED ARM 57-year-old black female with multiple medical comorbidities status post a fall with a left distal humerus fracture. Physical Exam Vital Signs: Temp Pulse Resp BP Pulse Ox 36.8 C 82 18 139/78 H 93 12/26/17 04:00 12/26/17 04:00 12/26/17 04:00 12/26/17 04:00 12/26/17 04:00 Intake & Output 12/25/17 12/26/17 12/27/17 06:59 06:59 06:59 Intake Total 185 1173 Balance 185 1173 Weight 153.5 kg 153.9 kg General appearance: PRESENT: mild distress Head exam: PRESENT: normocephalic Vascular exam: PRESENT: normal capillary refill Extremities exam: PRESENT: other - Left upper extremity immobilized in a posterior splint. There is brisk capillary refill to each of the digits. Results Laboratory Results: 12/26/17 04:14 12/26/17 04:14 12/26/17 12/26/17 04:14 04:14 WBC 8.0 RBC 3.49 L Hgb 9.1 L Hct 28.0 L MCV 80 MCH 26.1 L MCHC 32.5 RDW 18.4 H Plt Count 172 Seg Neutrophils % 65.0 Lymphocytes % 23.9 Monocytes % 8.1 Eosinophils % 2.5 Basophils % 0.5 Absolute Neutrophils 5.2 Absolute Lymphocytes 1.9 Absolute Monocytes 0.7 Absolute Eosinophils 0.2 Absolute Basophils 0.0 Sodium 143.3 Potassium 4.0 Chloride 101 Carbon Dioxide 30 Anion Gap 12 BUN 18 Creatinine 1.01 Est GFR ( Amer) > 60 Est GFR (Non-Af Amer) 56 L Glucose 161 H Calcium 9.4 Total Bilirubin 0.2 AST 19 ALT 21 Alkaline Phosphatase 162 H Total Protein 7.2 Albumin 3.7 12/25/17 12/25/17 15:39 15:39 Creatine Kinase 179 H CK-MB (CK-2) 0.26 Troponin I < 0.012 Impressions: Forearm X-Ray 12/24/17 17:52 IMPRESSION: Distal humerus fracture. No forearm fracture. Humerus X-Ray 12/24/17 17:52 IMPRESSION: Comminuted distal left humerus fracture. Chest X-Ray 12/24/17 18:41 IMPRESSION: No acute cardiopulmonary disease suspected. Status: Imported from PACS Assessment & Plan - Diagnosis (1) Fracture of humerus, left, closed Qualifiers: Encounter type: initial encounter Humerus Location: distal Fracture morphology: other fracture Fracture alignment: displaced Qualified Code(s): S42.492A - Other displaced fracture of lower end of left humerus, initial encounter for closed fracture Is this a current diagnosis for this admission?: Yes Plan: 57-year-old black female with a left distal humerus fracture. Case has been discussed with Dr. Phillips and Dr. bang. Patient is currently on the schedule today for an open reduction internal fixation but this is pending medical/cardiac clearance.
--- NOTE | 2017-12-26 08:47 | PDOC PROGRESS REPORT ---
Subjective Progress Note for:: 12/26/17 Subjective:: Pain in left arm and elbow region fairly controlled on current medication management. No chest pain or difficulty with breathing. Patient declined surgical intervention after further discussion with orthopedic team regarding her high risk status due to morbidities. Requested cardiac and pulmonary consultations for surgical clearance will be cancelled. Reason For Visit: FRACTURED ARM Physical Exam Vital Signs: Temp Pulse Resp BP Pulse Ox 98.2 F 82 18 139/78 H 93 12/26/17 04:00 12/26/17 04:00 12/26/17 04:00 12/26/17 04:00 12/26/17 04:00 Intake & Output 12/25/17 12/26/17 12/27/17 06:59 06:59 06:59 Intake Total 185 1173 Balance 185 1173 Weight 153.5 kg 153.9 kg General appearance: PRESENT: morbidly obese Head exam: PRESENT: atraumatic, normocephalic Mouth exam: PRESENT: moist Respiratory exam: PRESENT: clear to auscultation christine Vascular exam: ABSENT: pallor GI/Abdominal exam: PRESENT: normal bowel sounds, soft. ABSENT: distended, guarding, mass, organolmegaly, rebound, tenderness Extremities exam: PRESENT: pedal edema - bilateral chronic and comparatively improving Musculoskeletal exam: PRESENT: deformity - related to her recent left humerus fracture Neurological exam: PRESENT: alert, awake, oriented to person, oriented to place , oriented to time, oriented to situation, CN II-XII grossly intact. ABSENT: motor sensory deficit Psychiatric exam: PRESENT: appropriate affect, normal mood. ABSENT: homicidal ideation, suicidal ideation Skin exam: PRESENT: dry, warm Results Laboratory Results: 12/26/17 04:14 12/26/17 04:14 12/26/17 12/26/17 04:14 04:14 WBC 8.0 RBC 3.49 L Hgb 9.1 L Hct 28.0 L MCV 80 MCH 26.1 L MCHC 32.5 RDW 18.4 H Plt Count 172 Seg Neutrophils % 65.0 Lymphocytes % 23.9 Monocytes % 8.1 Eosinophils % 2.5 Basophils % 0.5 Absolute Neutrophils 5.2 Absolute Lymphocytes 1.9 Absolute Monocytes 0.7 Absolute Eosinophils 0.2 Absolute Basophils 0.0 Sodium 143.3 Potassium 4.0 Chloride 101 Carbon Dioxide 30 Anion Gap 12 BUN 18 Creatinine 1.01 Est GFR ( Amer) > 60 Est GFR (Non-Af Amer) 56 L Glucose 161 H Calcium 9.4 Total Bilirubin 0.2 AST 19 ALT 21 Alkaline Phosphatase 162 H Total Protein 7.2 Albumin 3.7 12/25/17 12/25/17 15:39 15:39 Creatine Kinase 179 H CK-MB (CK-2) 0.26 Troponin I < 0.012 Impressions: Forearm X-Ray 12/24/17 17:52 IMPRESSION: Distal humerus fracture. No forearm fracture. Humerus X-Ray 12/24/17 17:52 IMPRESSION: Comminuted distal left humerus fracture. Chest X-Ray 12/24/17 18:41 IMPRESSION: No acute cardiopulmonary disease suspected. Assessment & Plan - Diagnosis (1) Fall in home Qualifiers: Encounter type: initial encounter Qualified Code(s): W19.XXXA - Unspecified fall, initial encounter; Y92.009 - Unspecified place in unspecified non-institutional (private) residence as the place of occurrence of the external cause; Y92.009 - Unspecified place in unspecified non-institutional ( private) residence as the place of occurrence of the external cause Is this a current diagnosis for this admission?: Yes (2) Fracture of humerus, left, closed Qualifiers: Encounter type: initial encounter Humerus Location: distal Fracture morphology: other fracture Fracture alignment: displaced Qualified Code(s): S42.492A - Other displaced fracture of lower end of left humerus, initial encounter for closed fracture Is this a current diagnosis for this admission?: Yes (3) 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 Is this a current diagnosis for this admission?: Yes (4) Chronic kidney disease Qualifiers: Chronic kidney disease stage: stage 3 (moderate) Qualified Code(s): N18.3 - Chronic kidney disease, stage 3 (moderate) Is this a current diagnosis for this admission?: Yes (5) HTN (hypertension) Qualifiers: Hypertension type: essential hypertension Qualified Code(s): I10 - Essential (primary) hypertension Is this a current diagnosis for this admission?: Yes (6) Coronary artery disease without angina pectoris Qualifiers: Coronary Disease-Associated Artery/Lesion type: [place] artery Is this a current diagnosis for this admission?: Yes (7) Hx of coronary angioplasty Is this a current diagnosis for this admission?: Yes (8) COPD mixed type Is this a current diagnosis for this admission?: Yes (9) Asthma Qualifiers: Asthma complication type: uncomplicated Is this a current diagnosis for this admission?: Yes (10) Bipolar 1 disorder, depressed Is this a current diagnosis for this admission?: Yes (11) PTSD (post-traumatic stress disorder) Is this a current diagnosis for this admission?: Yes (12) Chronic schizoaffective disorder Is this a current diagnosis for this admission?: Yes (13) Chronic pain syndrome Is this a current diagnosis for this admission?: Yes - Time Time Spent with patient: 25-34 minutes Medications reviewed and adjusted accordingly: Yes Anticipated discharge: Home Within: Other - Inpatient Certification Based on my medical assessment, after consideration of the patient's comorbidities, presenting symptoms, or acuity I expect that the services needed warrant INPATIENT care.: Yes I certify that my determination is in accordance with my understanding of Medicare's requirements for reasonable and necessary INPATIENT services [42 CFR 412.3e].: Yes Medical Necessity: Need Close Monitoring Due to Risk of Patient Decompensation, Need For Continuous Telemetry Monitoring, Risk of Complication if Not Cared For in Hospital Post Hospital Care: D/C Hospitalist Nocturnist Physician Documentation - Plan Summary Plan Summary: See attending physician orders. We will follow up with orthopedic regarding need for immobilization before discharge.
[2017-12-26] MEDS: INSULIN LISPRO 100 UNIT/ML 3 ML VIAL SUBCUT PRN ×4 (09:21→23:06)
[2017-12-26] MEDS: ENOXAPARIN SODIUM INJ 40 MG/0.4 ML DISP.SYRIN SUBCUT SCH (09:21)
[2017-12-26] MEDS: BUPROPION HCL 75 MG TABLET PO SCH ×2 (09:22→23:04)
[2017-12-26] MEDS: DULOXETINE HCL 30 MG CAPSULE.DR PO SCH ×2 (09:22→23:06)
[2017-12-26] MEDS: INSULIN GLARGINE,HUM.REC.ANLOG 300 UNIT/3 ML INSULN.PEN SUBCUT SCH ×2 (09:22→23:06)
[2017-12-26] MEDS: LANSOPRAZOLE 30 MG TAB.RAP.DR PO SCH (09:22)
[2017-12-26] MEDS: BENZTROPINE MESYLATE 1 MG TABLET PO SCH ×2 (09:22→23:04)
[2017-12-26] MEDS: CIPROFLOXACIN HCL 500 MG TABLET PO SCH (09:23)
[2017-12-26] MEDS: MAGNESIUM OXIDE 400 MG TABLET PO SCH ×2 (09:23→17:26)
[2017-12-26] MEDS: VALSARTAN 160 MG TABLET PO SCH (09:23)
[2017-12-26] MEDS: FUROSEMIDE 40 MG TABLET PO SCH ×2 (09:24→23:05)
[2017-12-26] MEDS: BUDESONIDE/FORMOTEROL 160-4.5 MCG 60 PUFF/6 GM MDI IH SCH ×2 (09:24→23:03)
[2017-12-26] MEDS: ARIPIPRAZOLE 5 MG TABLET PO SCH ×2 (09:24→23:04)
[2017-12-26] MEDS: NITROGLYCERIN 5 MG (0.2 MG/HR) PATCH.TD24 TD SCH (09:25)
[2017-12-26] MEDS: AMITRIPTYLINE HCL 75 MG TABLET PO SCH (09:25)
[2017-12-26] MEDS ORDERED: (PENDING PHARMACY ID) (Liraglutide [Victoza 2-Pak] 1.8 MG) SQ SCH (10:00)
[2017-12-26] MEDS ORDERED: AMITRIPTYLINE HCL PO SCH (10:00)
--- NOTE | 2017-12-26 10:09 | PDOC PROGRESS REPORT ---
Subjective Progress Note for:: 12/26/17 Subjective:: Patient sitting bedside comfortably. Continues to complain of pain in her left distal humerus. Denies numbness or tingling. Reason For Visit: FRACTURED ARM Physical Exam Vital Signs: Temp Pulse Resp BP Pulse Ox 98.2 F 82 18 139/78 H 93 12/26/17 04:00 12/26/17 04:00 12/26/17 04:00 12/26/17 04:00 12/26/17 04:00 Intake & Output 12/25/17 12/26/17 12/27/17 06:59 06:59 06:59 Intake Total 185 1173 Balance 185 1173 Weight 153.5 kg 153.9 kg Musculoskeletal exam: PRESENT: other - Left upper extremity: Splint intact but extends to the fingertips. Patient is intact flexion/extension of the fingers however limited exam given splint construction. No sensory deficits. EPL/FPL intact. Cap refill less than 2 seconds. Normal skin turgor. Results Laboratory Results: 12/26/17 04:14 12/26/17 04:14 12/26/17 12/26/17 04:14 04:14 WBC 8.0 RBC 3.49 L Hgb 9.1 L Hct 28.0 L MCV 80 MCH 26.1 L MCHC 32.5 RDW 18.4 H Plt Count 172 Seg Neutrophils % 65.0 Lymphocytes % 23.9 Monocytes % 8.1 Eosinophils % 2.5 Basophils % 0.5 Absolute Neutrophils 5.2 Absolute Lymphocytes 1.9 Absolute Monocytes 0.7 Absolute Eosinophils 0.2 Absolute Basophils 0.0 Sodium 143.3 Potassium 4.0 Chloride 101 Carbon Dioxide 30 Anion Gap 12 BUN 18 Creatinine 1.01 Est GFR ( Amer) > 60 Est GFR (Non-Af Amer) 56 L Glucose 161 H Calcium 9.4 Total Bilirubin 0.2 AST 19 ALT 21 Alkaline Phosphatase 162 H Total Protein 7.2 Albumin 3.7 12/25/17 12/25/17 15:39 15:39 Creatine Kinase 179 H CK-MB (CK-2) 0.26 Troponin I < 0.012 Impressions: Forearm X-Ray 12/24/17 17:52 IMPRESSION: Distal humerus fracture. No forearm fracture. Humerus X-Ray 12/24/17 17:52 IMPRESSION: Comminuted distal left humerus fracture. Chest X-Ray 12/24/17 18:41 IMPRESSION: No acute cardiopulmonary disease suspected. Status: Image reviewed by me - I have reviewed patient's radiographs which demonstrate extra-articular distal humerus fracture with lateral displacement no significant angulation on AP or lateral view. Assessment & Plan - Diagnosis (1) Fracture of humerus, left, closed Qualifiers: Encounter type: initial encounter Humerus Location: distal Fracture morphology: other fracture Fracture alignment: displaced Qualified Code(s): S42.492A - Other displaced fracture of lower end of left humerus, initial encounter for closed fracture Is this a current diagnosis for this admission?: Yes Plan: I discussed treatment options with the patient including operative versus nonoperative intervention although the malalignment is an indication for operative treatment given patient's list of medical comorbidities she would be at increased risk for operative intervention. I did discuss the case with Dr. Phillips from anesthesia that feels patient would be at increased risk for general anesthesia and if she elected to proceed with operative intervention he would suggest treatment at a tertiary care facility. We discussed the risks and benefits of the surgical procedure, patient would like to forego operative intervention and treat her distal humerus fracture conservatively she understands the risks of both nonoperative and operative treatment. Risks of nonoperative treatment including malunion, nonunion, persistent pain, stiffness. After discussing these risks joint decision was made to continue with conservative management. I have contacted the emergency room who will place the patient in a posterior splint with the elbow at 90 leaving the fingers and wrist free.
[2017-12-26] MEDS: OXYCODONE-ACETAMINOPHEN 5-325 MG TABLET PO PRN ×3 (10:33→23:13)
--- NOTE | 2017-12-26 18:59 | Progress Note ---
Provider Note Provider Note: I reviewed her final urine culture result and discussed issue of allergy to antibiotic therapy. She reported hives development with penicillin usage in the past and mainly some degree of itching with Bactrim. Patient is agreeable to use of Bactrim for her UTI management. I will start her on Bactrim DS 1 tablet po bid with first and second dose under observation in the hospital.
[2017-12-26] MEDS: SULFAMETHOXAZOLE/TRIMETHOPRIM 800-160 MG TABLET PO SCH (20:33)
[2017-12-26] MEDS: TRAZODONE HCL 50 MG TABLET PO SCH (23:06)
[2017-12-26] MEDS: MELATONIN 5 MG TABLET PO SCH (23:13)
[2017-12-26] MEDS: SIMVASTATIN 10 MG TABLET PO SCH (23:47)
[2017-12-27] MEDS: GABAPENTIN 300 MG CAPSULE PO SCH (05:08)
[2017-12-27] MEDS: LEVOTHYROXINE SODIUM 0.05 MG TABLET PO SCH (05:08)
[2017-12-27] MEDS: OXYCODONE-ACETAMINOPHEN 5-325 MG TABLET PO PRN ×2 (05:18→10:03)
--- NOTE | 2017-12-27 08:55 | PDOC DISCHARGE SUMMARY ---
General - Admit/Disc Date/PCP Admission Date/Primary Care Provider: 12/24/17 19:03 JASSON VINI Discharge Date: 12/27/17 - Discharge Diagnosis (1) Fall in home Is this a current diagnosis for this admission?: Yes Summary: Improved gait. (2) Fracture of humerus, left, closed Is this a current diagnosis for this admission?: Yes Summary: Patient declined surgical intervention due to her judgment about been high risk candidate. 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 (6) Coronary artery disease without angina pectoris Is this a current diagnosis for this admission?: Yes Summary: Controlled on current medication regimen (7) Hx of coronary angioplasty Is this a current diagnosis for this admission?: Yes Summary: Controlled on current medication regimen (8) COPD mixed type Is this a current diagnosis for this admission?: Yes Summary: Controlled on current medication regimen (9) Asthma Is this a current diagnosis for this admission?: Yes Summary: Controlled on current medication regimen (10) Bipolar 1 disorder, depressed Is this a current diagnosis for this admission?: Yes Summary: Controlled on current medication regimen (11) PTSD (post-traumatic stress disorder) Is this a current diagnosis for this admission?: Yes Summary: Controlled on current medication regimen (12) Chronic schizoaffective disorder Is this a current diagnosis for this admission?: Yes Summary: Controlled on current medication regimen (13) Chronic pain syndrome Is this a current diagnosis for this admission?: Yes Summary: Controlled on current medication regimen - Additional Information Resuscitation Status: Full Code Discharge Diet: As Tolerated Discharge Activity: Activity As Tolerated Prescriptions: Sulfamethoxazole/Trimethoprim [Septra-Ds 800-160 mg Tablet] 1 tab PO Q12@0800, 2000 #10 tablet Home Medications: Amitriptyline HCl [Elavil 150 mg Tablet] 1 tab PO DAILY 01/17/17 Aripiprazole [Abilify 30 MG Tablet] 15 mg PO Q12 01/17/17 Benztropine Mesylate [Cogentin 1 mg Tablet] 1 tab PO BID 01/17/17 Bupropion HCl [Bupropion HCl Sr] 150 mg PO QHS 01/17/17 Duloxetine HCl [Cymbalta] 60 mg PO Q12 01/17/17 Gabapentin [Neurontin 300 mg Capsule] 300 mg PO Q8 01/17/17 Levothyroxine Sodium [Synthroid 0.05 mg Tablet] 50 mcg PO DAILY 01/17/17 Magnesium Oxide [Mag-Ox 400 mg Tablet] 400 mg PO BID 01/17/17 Naloxegol Oxalate [Movantik 25 mg Tablet] 25 mg PO QAM 01/17/17 Omeprazole 40 mg PO Q12 01/17/17 Trazodone HCl [Desyrel] 300 mg PO QHS 01/17/17 Albuterol Sulfate [Proair HFA] 2 puff IN Q6HP PRN 06/13/17 Budesonide/Formoterol Fumarate [Symbicort 160-4.5 Mcg Inhaler] 2 puff IN Q12 06/18 Furosemide [Lasix 20 mg Tablet] 40 mg PO Q12 06/13/17 Insulin Glargine,Hum.rec.anlog [Lantus Insulin 100 Unit/mL] 50 unit SQ QAM 06/13 Insulin Glargine,Hum.rec.anlog [Lantus Insulin 100 Unit/mL] 65 unit SQ QHS 06/13 Insulin Lispro [Humalog Kwikpen U-100] 0 unit SQ .SLIDING SCALE 06/13/17 Melatonin 5 mg PO QHS 06/13/17 Nitroglycerin [Nitro-Dur 5 mg (0.2 mg/Hr) Transdermal Patch] 1 patch TD DAILY 06/13/17 Docusate Sodium 100 mg PO BID PRN 12/25/17 Liraglutide [Victoza 2-Armando] 1.8 mg SQ DAILY 12/25/17 Oxycodone HCl/Acetaminophen [Percocet 5-325 mg Tablet] 1 tab PO TID 12/25/17 Simvastatin [Zocor 20 mg Tablet] 20 mg PO QHS 12/25/17 Valsartan [Diovan 160 mg Tablet] 160 mg PO DAILY 12/25/17 Sulfamethoxazole/Trimethoprim [Septra-Ds 800-160 mg Tablet] 1 tab PO Q12@0800, 2000 #10 tablet 12/27/17 History of Present Illness Patient complains of: Fall in home with left elbow pain History of Present Illness: SANTOS NAVARRO is a 57 year old female known to my practice who presented to the ED with left arm and forearm pain following incidental fall wile walking in her home. She reported outstretch of her upper extremity to break her fall. She noticed swelling around her left elbow joint and lower aspect of arm to which she applied ice pack. She contacted me after a day without improvement and worsening pain. She was advised to seek medical attention at the ED or nearest Urgent Care center. Her initial valuation in the ED revealed left spiral comminuted distal humerus fracture. Her urinalysis suggested possible UTI. She was advised hospitalization for further evaluation and management after orthopedic consultation with Dr. Chatterjee and recommendation for surgical intervention. She denied any chest pain, palpitation, or loss of consciousness. No nausea, vomiting or abdominal pain. Patient reported burning upon urination, urgency, and frequency over the last several days. She was evaluated recently at the ED for similar symptoms and informed about possible slight UTI. No significant hematuria or flank pain. She denied fever or chills. Her morbidities include Congestive Heart Failure, Coronary Artery Disease with prior [place] and stent angioplasty x 2, Hypertension, Hypercholesterolemia, Peripheral Vascular Disease, Obstructive sleep apnea, Asthma, COPD on supplemental oxygen at 2L/min via nasal cannula, Diabetes Mellitus Type 2, Stage 3 End Stage Renal Disease, GERD, Hypothyroidism, Migraine, Bipolar Disorder with Depression, Post Traumatic Stress Disorder, and chronic Schizophrenia Hospital Course Hospital Course: Patient was admitted for possible surgical intervention. After orthopedic consultation by Dr chatterjee there was request for cardiac and medical clearance for surgery. Both cardiology and pulmonary consultations were requested to complete her operative clearance. Subsequent discussion by Dr Carolina, orthopedic surgeon, with patient about anesthesia risk and surgical complications, patient decided to continue medical conservative management of her fracture due to her concern been classified as high risk for surgery. Consultations were cancelled. She was treated for UTI. Her culture did grew two sets of E.coli with broad antibiotic coverage but due to her extensive allergy history we are limited to use of Bactrim after confirming with patient that her allergy was mainly itching. She has been able to tolerate Bactrim DS without itching and she will be discharged home on same for 5 days therapy period.She will follow up with Dr. Chatterjee and myself as instructed upon discharge.. Physical Exam Vital Signs: Temp Pulse Resp BP Pulse Ox 98.3 F 97 21 H 142/86 H 93 12/26/17 23:46 12/27/17 07:00 12/26/17 23:46 12/26/17 23:46 12/26/17 23:46 Intake & Output 12/26/17 12/27/17 12/28/17 06:59 06:59 06:59 Intake Total 1173 2023 Balance 1173 3 Weight 153.9 kg 153.9 kg Physical Exam: General appearance: PRESENT: morbidly obese Head exam: PRESENT: atraumatic, normocephalic Mouth exam: PRESENT: moist Respiratory exam: PRESENT: clear to auscultation christine Vascular exam: ABSENT: pallor GI/Abdominal exam: PRESENT: normal bowel sounds, soft. ABSENT: distended, guarding, mass, organolmegaly, rebound, tenderness Extremities exam: PRESENT: pedal edema - bilateral chronic and comparatively improving, Left upper extremity with external immobilizer and elbow support splint in use. Musculoskeletal exam: PRESENT: deformity - related to her recent left humerus fracture Neurological exam: PRESENT: alert, awake, oriented to person, oriented to place , oriented to time, oriented to situation, CN II-XII grossly intact. ABSENT: motor sensory deficit Psychiatric exam: PRESENT: appropriate affect, normal mood. ABSENT: homicidal ideation, suicidal ideation Skin exam: PRESENT: dry, warm Results Laboratory Results: 12/26/17 04:14 12/26/17 04:14 12/25/17 12/25/17 15:39 15:39 Creatine Kinase 179 H CK-MB (CK-2) 0.26 Troponin I < 0.012 Impressions: Forearm X-Ray 12/24/17 17:52 IMPRESSION: Distal humerus fracture. No forearm fracture. Humerus X-Ray 12/24/17 17:52 IMPRESSION: Comminuted distal left humerus fracture. Chest X-Ray 12/24/17 18:41 IMPRESSION: No acute cardiopulmonary disease suspected. Qualifiers - * PATIENT BEING DISCHARGED WITH ANY OF THE FOLLOWING DIAGNOSIS: No Plan Discharge Plan: D/C home today. Follow appointment as instructed for Dr. Chatterjee and myself upon discharge.
[2017-12-27] MEDS: SULFAMETHOXAZOLE/TRIMETHOPRIM 800-160 MG TABLET PO SCH (09:58)
[2017-12-27] MEDS: ENOXAPARIN SODIUM INJ 40 MG/0.4 ML DISP.SYRIN SUBCUT SCH (10:00)
[2017-12-27] MEDS: LANSOPRAZOLE 30 MG TAB.RAP.DR PO SCH (10:00)
[2017-12-27] MEDS: INSULIN GLARGINE,HUM.REC.ANLOG 300 UNIT/3 ML INSULN.PEN SUBCUT SCH (10:01)
[2017-12-27] MEDS: NITROGLYCERIN 5 MG (0.2 MG/HR) PATCH.TD24 TD SCH (10:01)
[2017-12-27] MEDS: VALSARTAN 160 MG TABLET PO SCH (10:02)
[2017-12-27] MEDS: DULOXETINE HCL 30 MG CAPSULE.DR PO SCH (10:02)
[2017-12-27] MEDS: MAGNESIUM OXIDE 400 MG TABLET PO SCH (10:02)
[2017-12-27] MEDS: BENZTROPINE MESYLATE 1 MG TABLET PO SCH (10:02)
[2017-12-27] MEDS: BUPROPION HCL 75 MG TABLET PO SCH (10:02)
[2017-12-27] MEDS: FUROSEMIDE 40 MG TABLET PO SCH (10:02)
[2017-12-27] MEDS: ARIPIPRAZOLE 5 MG TABLET PO SCH (10:03)
[2017-12-27] MEDS: AMITRIPTYLINE HCL 75 MG TABLET PO SCH (10:03)
[2017-12-27] MEDS: BUDESONIDE/FORMOTEROL 160-4.5 MCG 60 PUFF/6 GM MDI IH SCH (10:03)
[2017-12-27 11:10] VITALS: BP 127/75
== END 2017-12-27 11:48 | disposition home or self-care (01) | DRG 563 ==
LOC: ER 17:37 → EH 19:03 → 5 21:40
PROVIDERS: ADMIT Internal Medicine Geriatric Medicine; ATTEND Internal Medicine Geriatric Medicine
PROC: 2W39X1Z Immobilization of Left Upper Extremity using Splint (ICD-10-PCS; principal; 2017-12-24)
PROC: 5A09457 Assistance with Respiratory Ventilation, 24-96 Consecutive Hours, Continuous Positive Airway Pressure (ICD-10-PCS; 2017-12-24)
DX: S42.492A Other displaced fracture of lower end of left humerus, initial encounter for closed fracture (principal); Z68.43 Body mass index [BMI] 50.0-59.9, adult; I13.0 Hypertensive heart and chronic kidney disease with heart failure and stage 1 through stage 4 chronic kidney disease, or unspecified chronic kidney disease; N39.0 Urinary tract infection, site not specified; N18.3 Chronic kidney disease, stage 3 (moderate); E66.01 Morbid (severe) obesity due to excess calories; W01.0XXA Fall on same level from slipping, tripping and stumbling without subsequent striking against object, initial encounter; Y92.009 Unspecified place in unspecified non-institutional (private) residence as the place of occurrence of the external cause; I25.10 Atherosclerotic heart disease of native coronary artery without angina pectoris; I50.9 Heart failure, unspecified; E78.5 Hyperlipidemia, unspecified; Z95.5 Presence of coronary angioplasty implant and graft; J44.9 Chronic obstructive pulmonary disease, unspecified; Z99.81 Dependence on supplemental oxygen; G47.30 Sleep apnea, unspecified; B96.20 Unspecified Escherichia coli [E. coli] as the cause of diseases classified elsewhere; K21.9 Gastro-esophageal reflux disease without esophagitis; E11.22 Type 2 diabetes mellitus with diabetic chronic kidney disease; G89.4 Chronic pain syndrome; E11.51 Type 2 diabetes mellitus with diabetic peripheral angiopathy without gangrene; M79.7 Fibromyalgia; F25.0 Schizoaffective disorder, bipolar type; Z53.8 Procedure and treatment not carried out for other reasons; F43.10 Post-traumatic stress disorder, unspecified; I25.2 Old myocardial infarction; Z90.49 Acquired absence of other specified parts of digestive tract; Z79.899 Other long term (current) drug therapy; Z88.1 Allergy status to other antibiotic agents; Z88.6 Allergy status to analgesic agent; Z88.0 Allergy status to penicillin; Z88.2 Allergy status to sulfonamides; Z88.8 Allergy status to other drugs, medicaments and biological substances; Z98.51 Tubal ligation status
CPT/HCPCS: 36415; 71045; 80053; 81001; 82550; 82553; 82962; 84484; 85025; 85610; 85730; 87086; 87088; 87186; 93005; 93010; 94660; 99285; J1650; J1815; J3490

== ENCOUNTER 2018-01-03 02:11 | Emergency (ER) | payer MEDICARE, MEDICAID ==
[2018-01-03] MEDS ORDERED: NORMAL SALINE 1000 ML 1,000 ML IV ONE ×2 (03:20→04:26)
[2018-01-03 04:16] LABS: ALANINE AMINOTRANSFERASE 37 U/L (9-52); ALKALINE PHOSPHATASE 238 U/L (38-126); ANION GAP 15 (5-19); ASPARTATE AMINO TRANSFERASE 34 U/L (14-36); BILIRUBIN,DIRECT 0.5 mg/dL (0.0-0.4); BILIRUBIN,TOTAL 0.5 mg/dL (0.2-1.3); BLOOD UREA NITROGEN 47 mg/dL (7-20); CALCIUM 9.6 mg/dL (8.4-10.2); CARBON DIOXIDE 28 mmol/L (22-30); CHLORIDE 101 mmol/L (98-107); CREATINE KINASE 85 U/L (30-135); GLUCOSE 235 mg/dL (75-110); POTASSIUM 4.5 mmol/L (3.6-5.0); SODIUM 143.6 mmol/L (137-145)
--- NOTE | 2018-01-03 04:38 | ER Document Report ---
ED General - General Chief Complaint: General Weakness Stated Complaint: WEAKNESS Time Seen by Provider: 01/03/18 03:13 Notes: Patient is a 57-year-old female, past medical history bipolar, hypertension, presents with intermittent muscle cramping over the past few days. On arrival to the ER, she is not having any symptoms. She said she has not had much to drink over the past few days. Patient fractured her left arm a few weeks ago, but she is undergoing nonoperative management. She denies fevers, chest pain, shortness of breath, blurry vision, nausea, vomiting, abdominal pain, calf swelling or tenderness or hemoptysis. TRAVEL OUTSIDE OF THE [place] IN LAST 30 DAYS: No - Related Data Allergies/Adverse Reactions: cephalexin monohydrate [From Keflex] Allergy (Unknown, Verified 12/24/17 17:38) codeine [Codeine] Allergy (Unknown, Verified 12/24/17 17:38) dicyclomine HCl [From Bentyl] Allergy (Unknown, Verified 12/24/17 17:38) hydrocodone bitartrate [From Vicodin] Allergy (Unknown, Verified 12/24/17 17:38) meloxicam [From Mobic] Allergy (Unknown, Verified 12/24/17 17:38) meperidine HCl [From Demerol (PF)] Allergy (Unknown, Verified 12/24/17 17:38) morphine [Morphine] Allergy (Unknown, Verified 12/24/17 17:38) naproxen sodium [From Naprelan CR Dosepak] Allergy (Unknown, Verified 12/24/17 17:38) nitrofurantoin [From Macrobid] Allergy (Unknown, Verified 12/24/17 17:38) pantoprazole sodium [From Protonix] Allergy (Unknown, Verified 12/24/17 17:38) Penicillins Allergy (Unknown, Verified 12/24/17 17:38) Sulfa (Sulfonamide Antibiotics) Allergy (Unknown, Verified 12/24/17 17:38) lamotrigine [From Lamictal] Allergy (Verified 12/24/17 17:38) rash Past Medical History - General Information source: Patient - Social History Smoking Status: Never Smoker Frequency of alcohol use: None Family History: None Patient has suicidal ideation: No Patient has homicidal ideation: No - Past Medical History Cardiac Medical History: Reports: Hx Congestive Heart Failure, Hx Coronary Artery Disease, Hx Heart Attack - 2 STENTS, Hx Hypercholesterolemia, Hx Hypertension, Hx Peripheral Vascular Disease Denies: Hx Heart Murmur Pulmonary Medical History: Reports: Hx Asthma, Hx Bronchitis, Hx COPD - WEARS 2 LNC 24HRS/DAY, Hx Sleep Apnea Denies: Hx Pneumonia, Hx Respiratory Failure, Hx Tuberculosis Neurological Medical History: Reports: Hx Migraine. Denies: Hx Cerebrovascular Accident, Hx Seizures Endocrine Medical History: Reports: Hx Diabetes Mellitus Type 2, Hx Hyperthyroidism, Hx Hypothyroidism Renal/ Medical History: Reports: Hx End Stage Renal Disease - Stage IV, no dialysis yet, Hx Renal Insufficiency. Denies: Hx Peritoneal Dialysis Malignancy Medical History: GI Medical History: Reports: Hx Gastroesophageal Reflux Disease. Denies: Hx Pancreatitis Musculoskeltal Medical History: Denies Hx Arthritis, Reports Hx Fibromyalgia, Reports Hx Muscle Weakness Psychiatric Medical History: Reports: Hx Bipolar Disorder, Hx Depression, Hx Post Traumatic Stress Disorder, Hx Schizophrenia Traumatic Medical History: Infectious Medical History: Past Surgical History: Reports: Hx Cardiac Catheterization, Hx Section - x2, Hx Coronary Artery Bypass Graft, Hx Coronary Stent - x2, Hx Hysterectomy, Hx Orthopedic Surgery, Hx Tubal Ligation - Immunizations Hx Diphtheria, Pertussis, Tetanus Vaccination: Yes Hx Pneumococcal Vaccination: 04/02/13 Review of Systems - Review of Systems Notes: REVIEW OF SYSTEMS: CONSTITUTIONAL: -fevers, -chills EENT: -eye pain, -difficulty swallowing, -nasal congestion CARDIOVASCULAR: -chest pain, -syncope. RESPIRATORY: -cough, -SOB GASTROINTESTINAL: -abdominal pain, -nausea, -vomiting, -diarrhea GENITOURINARY: -dysuria, -hematuria MUSCULOSKELETAL: +muscle cramps, -back pain, -neck pain SKIN: -rash or skin lesions. HEMATOLOGIC: -easy bruising or bleeding. LYMPHATIC: -swollen, enlarged glands. NEUROLOGICAL: -altered mental status or loss of consciousness, -headache, - neurologic symptoms PSYCHIATRIC: -anxiety, -depression. ALL OTHER SYSTEMS REVIEWED AND NEGATIVE. Physical Exam - Vital signs Vitals: Pulse 108 H 01/03/18 02:40 - Notes Notes: PHYSICAL EXAMINATION: GENERAL: Well-appearing, well-nourished and in no acute distress. HEAD: Atraumatic, normocephalic. EYES: Pupils equal round and reactive to light, extraocular movements intact, sclera anicteric, conjunctiva are normal. ENT: nares patent, oropharynx clear without exudates. Moist mucous membranes. NECK: Normal range of motion, supple without lymphadenopathy LUNGS: Breath sounds clear to auscultation bilaterally and equal. No wheezes rales or rhonchi. HEART: Regular rate and rhythm without murmurs ABDOMEN: Soft, nontender, normoactive bowel sounds. No guarding, no rebound. No masses appreciated. EXTREMITIES: Left arm in splint and sling. No pitting or edema. No cyanosis. NEUROLOGICAL: Cranial nerves grossly intact. Normal speech, normal gait. Normal sensory and motor exams. PSYCH: Flat affect. SKIN: Warm, Dry, normal turgor, no rashes or lesions noted. Course - Re-evaluation Re-evalutation: Patient does not have any symptoms at this time. Her blood work is remarkable for slight MER. She was provided with IV fluids and instructed to stay hydrated. She admits to not drinking much water over the past few days. Will have her follow-up with her primary care physician this week for a recheck of her kidney function. Given strict return precautions and she understands. - Vital Signs Vital signs: Temp Pulse Resp BP Pulse Ox 108 H 01/03/18 02:40 - Laboratory Result Diagrams: 01/03/18 04:38 01/03/18 03:46 Laboratory results interpreted by me: 01/03/18 01/03/18 03:46 04:38 RBC 3.18 L Hgb 8.3 L Hct 25.5 L MCH 26.0 L RDW 17.8 H BUN 47 H Creatinine 1.68 H Est GFR ( Amer) 38 L Est GFR (Non-Af Amer) 31 L Glucose 235 H Direct Bilirubin 0.5 H Alkaline Phosphatase 238 H Discharge - Discharge Clinical Impression: Myalgia, MER (acute kidney injury) Condition: Stable Disposition: HOME, SELF-CARE Additional Instructions: Stay hydrated and have your kidney function rechecked by your primary care physician this week. Myalagia (Muscle Pain) Myalgia is pain in the muscles. We use the word myalgia to describe muscle pain where there's no history of injury, no known muscle disease, and the muscles are normal to examination. Myalgias can be a symptom of an acute illness , such as influenza, hepatitis, or any viral illness, especially with fever. Sometimes the muscle pain comes before any other symptoms. Myalgia can also be an early symptom of inflammatory muscle disease, such as lupus. If myalgia is accompanied by an acute illness that explains the muscle pain , then no further testing needs to be done. When there's no clear reason for the pain, tests may be done to see if there's an inflammatory or other disease of the muscles. The usual treatment for myalgias is anti-inflammatory medication, such as ibuprofen. Muscle aches may be soothed with a heating pad or hot compress. If muscles remain painful for more than a few days, you'll need testing and followup. Return if a muscle becomes swollen, red, or severely painful. Referrals: JASSON MARTINI MD [Primary Care Provider] - Follow up as needed
[2018-01-03 04:46] LABS: ABSOLUTE BASOPHILS # (AUTO) 0.1 10^3/uL (0.0-0.2); ABSOLUTE EOSINOPHILS # (AUTO) 0.2 10^3/uL (0.0-0.6); ABSOLUTE LYMPHOCYTES (AUTO) 1.9 10^3/uL (0.5-4.7); ABSOLUTE MONOCYTES (AUTO) 0.5 10^3/uL (0.1-1.4); ABSOLUTE NEUT (AUTO) 5.5 10^3/uL (1.7-8.2); BASOPHILS % (AUTO) 0.9 % (0-2); EOSINOPHILS % (AUTO) 2.4 % (0-6); HEMATOCRIT 25.5 % (36.0-47.0); HEMOGLOBIN 8.3 g/dL (12.0-15.5); LYMPHOCYTES % (AUTO) 23.4 % (13-45); MEAN CORPUSCULAR HGB CONC 32.4 g/dL (32.0-36.0); MEAN CORPUSCULAR VOLUME 80 fl (80-97); MONOCYTES % (AUTO) 6.3 % (3-13); PLATELET COUNT 258 10^3/uL (150-450); RED BLOOD COUNT 3.18 10^6/uL (3.72-5.28); RED CELL DISTRIBUTION WIDTH 17.8 % (11.5-14.0); TOTAL CELLS COUNTED % (AUTO) 100 %; WHITE BLOOD COUNT 8.2 10^3/uL (4.0-10.5)
[2018-01-03 09:39] VITALS: BP 125/76
== END 2018-01-03 09:55 | disposition home or self-care (01) ==
LOC: ER 02:11
DX: N17.9 Acute kidney failure, unspecified (principal); M79.1 Myalgia; R53.1 Weakness; I10 Essential (primary) hypertension; R25.2 Cramp and spasm; I25.10 Atherosclerotic heart disease of native coronary artery without angina pectoris; I25.2 Old myocardial infarction; E11.51 Type 2 diabetes mellitus with diabetic peripheral angiopathy without gangrene; Z88.1 Allergy status to other antibiotic agents; Z88.5 Allergy status to narcotic agent; Z88.8 Allergy status to other drugs, medicaments and biological substances; Z88.0 Allergy status to penicillin; Z88.2 Allergy status to sulfonamides; Z95.1 Presence of aortocoronary bypass graft; Z95.5 Presence of coronary angioplasty implant and graft
CPT/HCPCS: 99285; 96360; 36415; 82962; 82550; 85025; 80053; J7030

== ENCOUNTER 2018-01-10 06:10 | Inpatient (IN) | payer MEDICARE, MEDICAID ==
--- NOTE | 2018-01-10 07:36 | ER Document Report ---
ED GI Bleed / Rectal Pain - General Chief Complaint: Rectal Bleeding Stated Complaint: RECTAL BLEEDING Time Seen by Provider: 01/10/18 07:26 TRAVEL OUTSIDE OF THE [place] IN LAST 30 DAYS: No - Related Data Allergies/Adverse Reactions: cephalexin monohydrate [From Keflex] Allergy (Unknown, Verified 12/24/17 17:38) codeine [Codeine] Allergy (Unknown, Verified 12/24/17 17:38) dicyclomine HCl [From Bentyl] Allergy (Unknown, Verified 12/24/17 17:38) hydrocodone bitartrate [From Vicodin] Allergy (Unknown, Verified 12/24/17 17:38) meloxicam [From Mobic] Allergy (Unknown, Verified 12/24/17 17:38) meperidine HCl [From Demerol (PF)] Allergy (Unknown, Verified 12/24/17 17:38) morphine [Morphine] Allergy (Unknown, Verified 12/24/17 17:38) naproxen sodium [From Naprelan CR Dosepak] Allergy (Unknown, Verified 12/24/17 17:38) nitrofurantoin [From Macrobid] Allergy (Unknown, Verified 12/24/17 17:38) pantoprazole sodium [From Protonix] Allergy (Unknown, Verified 12/24/17 17:38) Penicillins Allergy (Unknown, Verified 12/24/17 17:38) Sulfa (Sulfonamide Antibiotics) Allergy (Unknown, Verified 12/24/17 17:38) lamotrigine [From Lamictal] Allergy (Verified 12/24/17 17:38) rash Past Medical History - Social History Smoking Status: Never Smoker Chew tobacco use (# tins/day): No Frequency of alcohol use: None Drug Abuse: None Family History: None Patient has suicidal ideation: No Patient has homicidal ideation: No - Past Medical History Cardiac Medical History: Reports: Hx Congestive Heart Failure, Hx Coronary Artery Disease, Hx Heart Attack - 2 STENTS, Hx Hypercholesterolemia, Hx Hypertension, Hx Peripheral Vascular Disease Denies: Hx Heart Murmur Pulmonary Medical History: Reports: Hx Asthma, Hx Bronchitis, Hx COPD - WEARS 2 LNC 24HRS/DAY, Hx Sleep Apnea Denies: Hx Pneumonia, Hx Respiratory Failure, Hx Tuberculosis Neurological Medical History: Reports: Hx Migraine. Denies: Hx Cerebrovascular Accident, Hx Seizures Endocrine Medical History: Reports: Hx Diabetes Mellitus Type 2, Hx Hyperthyroidism, Hx Hypothyroidism Renal/ Medical History: Reports: Hx End Stage Renal Disease - Stage IV, no dialysis yet, Hx Renal Insufficiency. Denies: Hx Peritoneal Dialysis Malignancy Medical History: GI Medical History: Reports: Hx Gastroesophageal Reflux Disease. Denies: Hx Pancreatitis Musculoskeltal Medical History: Denies Hx Arthritis, Reports Hx Fibromyalgia, Reports Hx Muscle Weakness Psychiatric Medical History: Reports: Hx Bipolar Disorder, Hx Depression, Hx Post Traumatic Stress Disorder, Hx Schizophrenia Traumatic Medical History: Infectious Medical History: Past Surgical History: Reports: Hx Cardiac Catheterization, Hx Section - x2, Hx Coronary Artery Bypass Graft, Hx Coronary Stent - x2, Hx Hysterectomy, Hx Orthopedic Surgery, Hx Tubal Ligation - Immunizations Hx Diphtheria, Pertussis, Tetanus Vaccination: Yes Hx Pneumococcal Vaccination: 04/02/13 Physical Exam - Vital signs Vitals: Temp 97.7 F 01/10/18 07:04 Course - Vital Signs Vital signs: Temp Pulse Resp BP Pulse Ox 97.7 F 01/10/18 07:04 Discharge - Discharge Referrals: JASSON MARTINI MD [Primary Care Provider] - Follow up as needed
[2018-01-10 08:50] LABS: INTERNATIONAL RATION (INR) 1.11; PROTHROMBIN TIME 14.9 SEC (11.4-15.4)
[2018-01-10 08:51] LABS: PARTIAL THROMBOPLASTIN TIME 35.4 SEC (23.5-35.8)
[2018-01-10 09:05] LABS: ABSOLUTE EOSINOPHILS # (AUTO) 0.2 10^3/uL (0.0-0.6); ABSOLUTE LYMPHOCYTES (AUTO) 2.7 10^3/uL (0.5-4.7); ABSOLUTE MONOCYTES (AUTO) 0.7 10^3/uL (0.1-1.4); ABSOLUTE NEUT (AUTO) 7.7 10^3/uL (1.7-8.2); BASOPHILS % (AUTO) 0.3 % (0-2); HEMATOCRIT 19.5 % (36.0-47.0); LYMPHOCYTES % (AUTO) 23.6 % (13-45); MEAN CORPUSCULAR HGB CONC 32.7 g/dL (32.0-36.0); MEAN CORPUSCULAR VOLUME 80 fl (80-97); MONOCYTES % (AUTO) 6.4 % (3-13); PLATELET COUNT 248 10^3/uL (150-450); RED BLOOD COUNT 2.45 10^6/uL (3.72-5.28); RED CELL DISTRIBUTION WIDTH 17.5 % (11.5-14.0); SEGMENTED NEUTROPHILS % (AUTO) 67.7 % (42-78); TOTAL CELLS COUNTED % (AUTO) 100 %; WHITE BLOOD COUNT 11.4 10^3/uL (4.0-10.5)
[2018-01-10 09:06] LABS: ALANINE AMINOTRANSFERASE 25 U/L (9-52); ALBUMIN 3.6 g/dL (3.5-5.0); ALKALINE PHOSPHATASE 195 U/L (38-126); ANION GAP 14 (5-19); ASPARTATE AMINO TRANSFERASE 16 U/L (14-36); BILIRUBIN,DIRECT 0.4 mg/dL (0.0-0.4); BILIRUBIN,TOTAL 0.4 mg/dL (0.2-1.3); BLOOD UREA NITROGEN 21 mg/dL (7-20); CARBON DIOXIDE 30 mmol/L (22-30); CHLORIDE 95 mmol/L (98-107); GLUCOSE 198 mg/dL (75-110); POTASSIUM 3.9 mmol/L (3.6-5.0); SODIUM 139.1 mmol/L (137-145)
[2018-01-10 09:12] LABS: HEMOGLOBIN 6.4 g/dL (12.0-15.5)
--- NOTE | 2018-01-10 09:29 | RADIOLOGY REPORT (SQ) ---
EXAM DESCRIPTION: CHEST SINGLE VIEW COMPLETED DATE/TIME: 01/10/2018 9:19 am REASON FOR STUDY: chf, iv fluids need to be given COMPARISON: 12/24/2017 EXAM PARAMETERS: NUMBER OF VIEWS: One view. TECHNIQUE: Single frontal radiographic view of the chest acquired. RADIATION DOSE: NA LIMITATIONS: Poor inspiration. FINDINGS: LUNGS AND PLEURA: No opacities, masses or pneumothorax. No pleural effusion. MEDIASTINUM AND HILAR STRUCTURES: No masses. Contour normal. HEART AND VASCULAR STRUCTURES: Mild cardiomegaly. Vasculature within normal limits. BONES: No acute findings. HARDWARE: None in the chest. OTHER: No other significant finding. IMPRESSION: Mild cardiomegaly without evidence of acute cardiopulmonary disease. TECHNICAL DOCUMENTATION: JOB ID: [id number] [employer]- All Rights Reserved Reading location - IP/workstation name: [email or web address]
[2018-01-10] MEDS ORDERED: NORMAL SALINE 250 ML IV PRN (09:47)
--- NOTE | 2018-01-10 09:51 | ER Document Report ---
ED GI Bleed / Rectal Pain - General Chief Complaint: Rectal Bleeding Stated Complaint: RECTAL BLEEDING Time Seen by Provider: 01/10/18 07:26 Mode of Arrival: Ambulatory Information source: Patient Notes: Patient is a 57 year old female with a history of rectal bleeding, anemia, CHF, bowel obstruction who presents to the ER via EMS today for bright red blood per rectum today, no bowel movement in a week and lightheadedness. Patient has had to have a blood transfusion in the past for her anemia. Patient denies any abdominal pain but does admit to some pain with bowel movements. She states that normally she goes every day because she has ulcerative colitis but over the past week she has not been able to have a bowel movement. Patient is a very poor historian and continues to change her answers based on your questions. TRAVEL OUTSIDE OF THE [place] IN LAST 30 DAYS: No - Related Data Allergies/Adverse Reactions: cephalexin monohydrate [From Keflex] Allergy (Unknown, Verified 12/24/17 17:38) codeine [Codeine] Allergy (Unknown, Verified 12/24/17 17:38) dicyclomine HCl [From Bentyl] Allergy (Unknown, Verified 12/24/17 17:38) hydrocodone bitartrate [From Vicodin] Allergy (Unknown, Verified 12/24/17 17:38) meloxicam [From Mobic] Allergy (Unknown, Verified 12/24/17 17:38) meperidine HCl [From Demerol (PF)] Allergy (Unknown, Verified 12/24/17 17:38) morphine [Morphine] Allergy (Unknown, Verified 12/24/17 17:38) naproxen sodium [From Naprelan CR Dosepak] Allergy (Unknown, Verified 12/24/17 17:38) nitrofurantoin [From Macrobid] Allergy (Unknown, Verified 12/24/17 17:38) pantoprazole sodium [From Protonix] Allergy (Unknown, Verified 12/24/17 17:38) Penicillins Allergy (Unknown, Verified 12/24/17 17:38) Sulfa (Sulfonamide Antibiotics) Allergy (Unknown, Verified 12/24/17 17:38) lamotrigine [From Lamictal] Allergy (Verified 12/24/17 17:38) rash Past Medical History - General Information source: Patient - Social History Smoking Status: Never Smoker Chew tobacco use (# tins/day): No Frequency of alcohol use: None Drug Abuse: None Family History: None Patient has suicidal ideation: No Patient has homicidal ideation: No - Past Medical History Cardiac Medical History: Reports: Hx Congestive Heart Failure, Hx Coronary Artery Disease, Hx Heart Attack - 2 STENTS, Hx Hypercholesterolemia, Hx Hypertension, Hx Peripheral Vascular Disease Denies: Hx Heart Murmur Pulmonary Medical History: Reports: Hx Asthma, Hx Bronchitis, Hx COPD - WEARS 2 LNC 24HRS/DAY, Hx Sleep Apnea Denies: Hx Pneumonia, Hx Respiratory Failure, Hx Tuberculosis Neurological Medical History: Reports: Hx Migraine. Denies: Hx Cerebrovascular Accident, Hx Seizures Endocrine Medical History: Reports: Hx Diabetes Mellitus Type 2, Hx Hyperthyroidism, Hx Hypothyroidism Renal/ Medical History: Reports: Hx End Stage Renal Disease - Stage IV, no dialysis yet, Hx Renal Insufficiency. Denies: Hx Peritoneal Dialysis Malignancy Medical History: GI Medical History: Reports: Hx Gastroesophageal Reflux Disease. Denies: Hx Pancreatitis Musculoskeltal Medical History: Denies Hx Arthritis, Reports Hx Fibromyalgia, Reports Hx Muscle Weakness Psychiatric Medical History: Reports: Hx Bipolar Disorder, Hx Depression, Hx Post Traumatic Stress Disorder, Hx Schizophrenia Traumatic Medical History: Infectious Medical History: Past Surgical History: Reports: Hx Cardiac Catheterization, Hx Section - x2, Hx Coronary Artery Bypass Graft, Hx Coronary Stent - x2, Hx Hysterectomy, Hx Orthopedic Surgery, Hx Tubal Ligation - Immunizations Hx Diphtheria, Pertussis, Tetanus Vaccination: Yes Hx Pneumococcal Vaccination: 04/02/13 Review of Systems - Review of Systems Constitutional: No symptoms reported EENT: No symptoms reported Cardiovascular: No symptoms reported Respiratory: No symptoms reported Gastrointestinal: See HPI Genitourinary: No symptoms reported Female Genitourinary: No symptoms reported Musculoskeletal: No symptoms reported Skin: No symptoms reported Hematologic/Lymphatic: No symptoms reported Neurological/Psychological: See HPI Physical Exam - Vital signs Vitals: Pulse Ox 95 01/10/18 06:36 - Notes Notes: PHYSICAL EXAMINATION: GENERAL: Chronically ill-appearing, morbidly obese, in no acute distress. HEAD: Atraumatic, normocephalic. EYES: Pupils equal round and reactive to light, extraocular movements intact, sclera anicteric, conjunctiva are normal. NECK: Normal range of motion, supple without lymphadenopathy LUNGS: CTAB and equal. No wheezes rales or rhonchi. HEART: Regular rate and rhythm without murmurs ABDOMEN: Soft, mild left lower quadrant tenderness. No guarding, no rebound BACK: no vertebral tenderness, normal ROM Rectal: Multiple external fleshy colored hemorrhoids, normal tone, bright red blood per rectum GI/: no CVA tenderness EXTREMITIES: Normal range of motion, no pitting edema. No cyanosis. NEUROLOGICAL: Cranial nerves grossly intact. Normal sensory/motor exams. PSYCH: Normal mood, normal affect. SKIN: Warm, Dry, normal turgor, no rashes or lesions noted Course - Re-evaluation Re-evalutation: 01/10/18 09:50 Patient allergic to Protonix. 2 units of packed red blood cells ordered at this time for hemoglobin is 6.9 which was 8.4 on January 03, just about a week ago. Patient has positive Hemoccult today. Patient tells me she has a history of ulcerative colitis although I do not see that in our records. Awaiting CAT scan as patient has a history of small bowel obstruction is now complaining of not having a bowel movement in a week when she usually has multiple episodes of diarrhea per day. 01/10/18 13:08 Dr. Martini, patient's primary care provider agrees to admit for MER as her creatinine is 2.37 and just last month was 1.01. Patient is also being admitted for acute anemia for blood transfusion. - Vital Signs Vital signs: Temp Pulse Resp BP Pulse Ox 97.7 F 105/59 L 100 01/10/18 07:04 01/10/18 07:31 01/10/18 10:00 - Laboratory Result Diagrams: 01/10/18 08:31 01/10/18 08:31 Laboratory results interpreted by me: 01/10/18 01/10/18 01/10/18 08:31 08:31 08:31 WBC 11.4 H RBC 2.45 L Hgb 6.4 L Hct 19.5 L MCH 26.0 L RDW 17.5 H Chloride 95 L BUN 21 H Creatinine 2.46 H Est GFR ( Amer) 24 L Est GFR (Non-Af Amer) 20 L Glucose 198 H Alkaline Phosphatase 195 H Crossmatch See Detail Discharge - Discharge Clinical Impression: MER (acute kidney injury) Anemia Qualifiers: Anemia type: unspecified type Qualified Code(s): D64.9 - Anemia, unspecified Condition: Stable Disposition: ADMITTED OBSERVATION Admitting Provider: Aron Unit Admitted: Telemetry Referrals: JASSON MARTINI MD [Primary Care Provider] - Follow up as needed
--- NOTE | 2018-01-10 12:10 | RADIOLOGY REPORT (SQ) ---
EXAM DESCRIPTION: CT ABD/PELVIS ORAL ONLY COMPLETED DATE/TIME: 01/10/2018 11:47 am REASON FOR STUDY: abd pain, rectal bleeding COMPARISON: 2017. TECHNIQUE: CT scan of the abdomen and pelvis performed with oral contrast and no intravenous contras t. Images reviewed with lung, soft tissue, and bone windows. Reconstructed coronal and sagittal MPR i mages reviewed. All images stored on PACS. All CT scanners at this facility use dose modulation, iterative reconstruction, and/or weight based d osing when appropriate to reduce radiation dose to as low as reasonably achievable (ALARA). [facility]: Dose Right [facility]: CareDose [facility]: Dose Right [facility]: Teradose 4D [facility]: Smart baseclick RADIATION DOSE: CT Rad equipment meets quality standard of care and radiation dose reduction techniq ues were employed. CTDIvol: 30.0 mGy. DLP: 1649 mGy-cm.mGy. LIMITATIONS: Limited oral contrast administered due to patient cooperation issues. FINDINGS: LOWER CHEST: Motion artifact and subsegmental atelectasis. Cardiomegaly. No significant hiatal hernia. NON-CONTRASTED LIVER, SPLEEN, ADRENALS: Liver and spleen relatively unremarkable, no focal mass or co ntour abnormality suggested. Chronic unchanged left adrenal mass measures just over 2 cm. Presumed adenoma. PANCREAS: Diffuse fatty replacement/atrophy. No inflammatory changes, mass or fluid. GALLBLADDER: No identified stones by CT criteria. No inflammatory changes to suggest cholecystitis. RIGHT KIDNEY AND URETER: No urinary obstruction or renal calculi. Calcification adjacent to the dist al ureter in the right hemipelvis was seen previously, likely a tiny phlebolith. LEFT KIDNEY AND URETER: No solid masses. No significant calcification. No hydronephrosis or hydrouret er. AORTA AND RETROPERITONEUM: No aneurysm. No retroperitoneal masses or adenopathy. BOWEL AND PERITONEAL CAVITY: Mild gaseous distention throughout the transverse colon. No gross wall thickening or inflammatory process related to bowel. Allowing for non opacification of most of the b owel, no gross mass suggested. No evidence of mechanical obstruction. APPENDIX: Normal. PELVIS, BLADDER, AND ABDOMINAL WALL: No abnormal pelvic masses. No abdominal wall hernias. Bladder un remarkable. BONES: Osteopenic. OTHER: No other significant finding. IMPRESSION: 1. No acute or suspicious abdominopelvic abnormality on what is essentially a non contr asted study. TECHNICAL DOCUMENTATION: JOB ID: [id number] Quality ID # [id number]: Final reports with documentation of one or more dose reduction techniques (e.g., Au tomated exposure control, adjustment of the mA and/or kV according to patient size, use of iterative reconstruction technique) 2010 [employer]- All Rights Reserved Reading location - IP/workstation name: [email or web address]
[2018-01-10] MEDS ORDERED: NORMAL SALINE 1000 ML 1,000 ML IV PRN (13:05)
[2018-01-10] MEDS ORDERED: IPRATROPIUM/ALBUTEROL 0.5-2.5 MG/3 ML AMPUL NEB PRN (18:12)
[2018-01-10] MEDS ORDERED: (PENDING PHARMACY ID) (Diclofenac Sodium [Voltaren] 1 APPLIC) TOP PRN (18:12)
[2018-01-10] MEDS ORDERED: (PENDING PHARMACY ID) (Lactulose [Constulose 10 Gm/15 Ml Oral Solution] 10 GM) PO PRN (18:12)
[2018-01-10] MEDS ORDERED: METHOCARBAMOL 500 MG TABLET PO PRN (18:12)
[2018-01-10] MEDS ORDERED: ALBUTEROL SULFATE HFA (90 MCG/PUFF) 200 PUFF/8.5 GM MDI IH PRN (18:12)
[2018-01-10] MEDS ORDERED: DOCUSATE SODIUM 100 MG CAPSULE PO PRN (18:12)
[2018-01-10] MEDS ORDERED: DEXTROSE 40% GEL 15 GM TUBE PO PRN ×2 (18:17)
[2018-01-10] MEDS ORDERED: GLUCAGON,HUMAN RECOMB 1 MG INJ IM PRN (18:17)
[2018-01-10] MEDS ORDERED: DEXTROSE 50%-WATER 25 GM/50 ML DISP.SYRIN IV PRN ×2 (18:17)
[2018-01-10] MEDS ORDERED: GLYCERIN/WITCH HAZEL LEAF 1 EACH MED..PAD TP PRN (18:18)
[2018-01-10] MEDS ORDERED: LACTULOSE SYRUP 20 GM/30 ML UDCUP PO PRN (18:26)
--- NOTE | 2018-01-10 20:32 | PDOC H&P ---
History of Present Illness Admission Date/PCP: 01/10/18 13:35 JASSON MARTINI History of Present Illness: SANTOS NAVARRO is a 57 year old female known to my practice who was brought to the ED by EMS personnel due to reported rectal bleeding. Patient has history of internal and external hemorrhoids, status post surgical attempts at repair. She reported note bleeding early on the day of her presentation with about 7 days history of worsening constipation. She reported associated nausea, vomiting, and abdominal pain. No chest pain or difficulty with breathing. She claimed associated chills and intermittent burning with urination. She denied any fever. She reported episode of fall in her kitchen earlier in the day. Her initial evaluation in the ED was significant for severe anemia with hemoglobin level at 6.4g/dL and worsening renal indices. Patient did eventually agreed to blood transfusion as part of her medical management. Her extensive morbidities include Chronic systolic Congestive Heart Failure, Coronary Artery Disease with old Myocardial infarction s/p two stent angioplasty, Hypercholesterolemia, Hypertension, Peripheral Vascular Disease, Asthma, COPD on supplemental oxygen at 2L/min via nasal cannula, Migraine, Diabetes Mellitus Type 2, Hypothyroidism , Stage IV Chronic Kidney Disease, Gastroesophageal Reflux Disease, Arthritis, left distal humeral fracture, Bipolar Disorder, Schizophrenia, Depression, and Post Traumatic Stress Disorder. Past Medical History Cardiac Medical History: Reports: Congestive Heart Failure, Coronary Artery Disease, Myocardial Infarction - 2 STENTS, Hyperlipidema, Hypertension, Peripheral Vascular Disease Denies: Heart Murmur Pulmonary Medical History: Reports: Asthma, Bronchitis, Chronic Obstructive Pulmonary Disease (COPD) - WEARS 2 LNC 24HRS/DAY, Sleep Apnea Denies: Pneumonia, Respiratory Failure, Tuberculosis Neurological Medical History: Reports: Migraine Denies: Seizures Endocrine Medical History: Reports: Diabetes Mellitus Type 2, Hyperthyroidism, Hypothyroidism Renal/ Medical History: Reports: End Stage Renal Disease - Stage IV, no dialysis yet Malignancy Medical History: GI Medical History: Reports: Gastroesophageal Reflux Disease Musculoskeltal Medical History: Reports: Fibromyalgia Denies: Arthritis Psychiatric Medical History: Reports: Bipolar Disorder, Depression, Post Traumatic Stress Disorder Hematology: Denies: Anemia, Hemophilia, Sickle Cell Disease, Bleeding Tendencies Infectious Medical History: Past Surgical History Past Surgical History: Reports: Cardiac Catheterization, Section - x2, Coronary Artery Bypass Graft, Coronary Stent - x2, Hysterectomy, Orthopedic Surgery, Tubal Ligation Denies: Amputation Social History Smoking Status: Never Smoker Frequency of Alcohol Use: None Hx Recreational Drug Use: No Drugs: None Hx Prescription Drug Abuse: No - Advance Directive Resuscitation Status: Full Code Family History Family History: None Parental Family History Reviewed: Yes Children Family History Reviewed: Yes Sibling(s) Family History Reviewed.: Yes Medication/Allergy Home Medications: Albuterol Sulfate [Proair HFA Inhalation Aerosol 8.5 gm MDI] 2 puff IH Q4HP PRN 01/10/18 Amitriptyline HCl [Elavil 150 mg Tablet] 150 mg PO DAILY 01/10/18 Aripiprazole [Abilify 30 mg Tablet] 15 mg PO BID 01/10/18 Benztropine Mesylate [Cogentin 1 mg Tablet] 1 mg PO BID 01/10/18 Budesonide/Formoterol Fumarate [Symbicort HFA 160-4.5 mcg Inhaler 6 gm] 2 puff IH BID 01/10/18 Bupropion HCl [Wellbutrin Sr 150 mg Tablet] 150 mg PO QPM 01/10/18 Diclofenac Sodium [Voltaren] 1 applic TOP TIDP PRN 01/10/18 Docusate Sodium [Colace 100 mg Capsule] 100 mg PO BIDP PRN 01/10/18 Duloxetine HCl [Cymbalta] 60 mg PO BID 01/10/18 Furosemide [Lasix 40 mg Tablet] 40 mg PO BID 01/10/18 Gabapentin [Neurontin 300 mg Capsule] 300 mg PO Q8 01/10/18 Insulin Glargine,Hum.rec.anlog [Lantus Solostar] 55 units SQ QAM 01/10/18 Insulin Glargine,Hum.rec.anlog [Lantus Solostar] 65 units SQ QHS 01/10/18 Insulin Lispro [Humalog Kwikpen U-100] 0 units SQ .PERSLIDINGSCALE 01/10/18 Ipratropium/Albuterol Sulfate [Duoneb 3 ml Ampul] 3 ml NEB RTQ6HP PRN 01/10/18 Lactulose [Constulose 10 gm/15 mL Oral Solution] 10 gm PO DAILYP PRN 01/10/18 Lactulose [Kristalose 10 gm Packet] 30 gm PO DAILY 01/10/18 Levothyroxine Sodium [Synthroid] 50 mcg PO Q6AM 01/10/18 Liraglutide [Victoza 2-Armando] 1.8 mg SQ DAILY 01/10/18 Magnesium Oxide [Mag-Ox 400 mg Tablet] 400 mg PO BID 01/10/18 Methocarbamol [Robaxin 500 mg Tablet] 500 mg PO TIDP PRN 01/10/18 Naloxegol Oxalate [Movantik 25 mg Tablet] 25 mg PO QAM 01/10/18 Nitroglycerin [Nitro-Dur 5 mg (0.2 mg/Hr) Transdermal Patch] 0.2 mg TD DAILY Omeprazole 40 mg PO Q12 01/10/18 Oxycodone HCl/Acetaminophen [Percocet 10-325 mg Tablet] 1 tab PO Q8HP PRN Saxagliptin HCl [Onglyza] 2.5 mg PO DAILY 01/10/18 Silver Sulfadiazine [Ssd] 1 applic TOP BID 01/10/18 Simvastatin [Zocor 20 mg Tablet] 20 mg PO WSUPPER 01/10/18 Trazodone HCl [Desyrel] 300 mg PO QHS 01/10/18 Valsartan [Diovan 160 mg Tablet] 160 mg PO DAILY 01/10/18 Allergies/Adverse Reactions: cephalexin monohydrate [From Keflex] Allergy (Unknown, Verified 12/24/17 17:38) codeine [Codeine] Allergy (Unknown, Verified 12/24/17 17:38) dicyclomine HCl [From Bentyl] Allergy (Unknown, Verified 12/24/17 17:38) hydrocodone bitartrate [From Vicodin] Allergy (Unknown, Verified 12/24/17 17:38) meloxicam [From Mobic] Allergy (Unknown, Verified 12/24/17 17:38) meperidine HCl [From Demerol (PF)] Allergy (Unknown, Verified 12/24/17 17:38) morphine [Morphine] Allergy (Unknown, Verified 12/24/17 17:38) naproxen sodium [From Naprelan CR Dosepak] Allergy (Unknown, Verified 12/24/17 17:38) nitrofurantoin [From Macrobid] Allergy (Unknown, Verified 12/24/17 17:38) pantoprazole sodium [From Protonix] Allergy (Unknown, Verified 12/24/17 17:38) Penicillins Allergy (Unknown, Verified 12/24/17 17:38) Sulfa (Sulfonamide Antibiotics) Allergy (Unknown, Verified 12/24/17 17:38) lamotrigine [From Lamictal] Allergy (Verified 12/24/17 17:38) rash Review of Systems Constitutional: ABSENT: chills, fever(s), headache(s), weight gain, weight loss Eyes: ABSENT: visual disturbances Ears: ABSENT: hearing changes Nose, Mouth, and Throat: PRESENT: headache(s) - occasionally Cardiovascular: PRESENT: dyspnea on exertion, edema. ABSENT: as per HPI, chest pain, orthropnea, palpitations, other Respiratory: PRESENT: dyspnea. ABSENT: as per HPI, cough, hemoptysis, sputum, other Gastrointestinal: PRESENT: constipation, hematochezia. ABSENT: as per HPI, abdominal pain, bloating, coffee ground emesis, diarrhea, dysphagia, heartburn, hematemesis, melena, nausea, vomiting, other Genitourinary: ABSENT: dysuria, hematuria Musculoskeletal: PRESENT: joint swelling - feet and leg but improving Integumentary: ABSENT: rash, wounds Neurological: ABSENT: abnormal gait, abnormal speech, confusion, dizziness, focal weakness, syncope Psychiatric: PRESENT: anxiety, depression. ABSENT: as per HPI, hallucinations, homidical ideation, suicidal ideation, other Endocrine: ABSENT: cold intolerance, heat intolerance, polydipsia, polyuria Hematologic/Lymphatic: ABSENT: easy bleeding, easy bruising, lymphadenopathy Allergic/Immunologic: ABSENT: seasonal rhinorrhea Physical Exam Vital Signs: Temp Pulse Resp BP Pulse Ox 98.4 F 93 18 124/64 92 01/10/18 19:13 01/10/18 19:13 01/10/18 19:13 01/10/18 19:13 01/10/18 19:13 Intake & Output 01/09/18 01/10/18 01/11/18 06:59 06:59 06:59 Intake Total 300 Balance 300 General appearance: PRESENT: morbidly obese Head exam: PRESENT: atraumatic, normocephalic Eye exam: PRESENT: conjunctiva pink, EOMI, PERRLA. ABSENT: scleral icterus Mouth exam: PRESENT: moist Respiratory exam: PRESENT: clear to auscultation christine, decreased breath sounds - at lung bases Cardiovascular exam: PRESENT: RRR. ABSENT: diastolic murmur, rubs, systolic murmur Pulses: PRESENT: +1 pedal pulses bilateral Vascular exam: PRESENT: normal capillary refill. ABSENT: pallor GI/Abdominal exam: PRESENT: normal bowel sounds, soft. ABSENT: distended, guarding, mass, organolmegaly, rebound, tenderness Rectal exam: PRESENT: hemorrhoids - external component without bleeding Extremities exam: PRESENT: pedal edema - improved chronic lower extremities edema Musculoskeletal exam: PRESENT: ambulatory - with walker and cane assistance at home, deformity - related to recent left distal humeral fracture in external immobilization and degenerative joint disease, tenderness - with motion of left upper extremity Neurological exam: PRESENT: alert, awake, oriented to person, oriented to place , oriented to time, oriented to situation, CN II-XII grossly intact. ABSENT: motor sensory deficit Psychiatric exam: PRESENT: appropriate affect, normal mood. ABSENT: homicidal ideation, suicidal ideation Skin exam: PRESENT: dry, rash - chronic venous stasis changes, warm Results Laboratory Results: I reviewed her lab results on [employer] and form significant part of my decision making. Impressions: Chest X-Ray 01/10/18 07:45 IMPRESSION: Mild cardiomegaly without evidence of acute cardiopulmonary disease. Abdomen/Pelvis CT 01/10/18 09:47 IMPRESSION: 1. No acute or suspicious abdominopelvic abnormality on what is essentially a non contrasted study. Assessment & Plan - Diagnosis (1) Anemia associated with acute blood loss Is this a current diagnosis for this admission?: Yes Plan: See admitting attending physician orders. (2) Internal hemorrhoid, bleeding Is this a current diagnosis for this admission?: Yes Plan: See admitting attending physician orders. (3) External hemorrhoids with complication Is this a current diagnosis for this admission?: Yes Plan: See admitting attending physician orders. (4) Constipation due to opioid therapy Is this a current diagnosis for this admission?: Yes Plan: See admitting attending physician orders. (5) Acute kidney injury Is this a current diagnosis for this admission?: Yes Plan: See admitting attending physician orders. 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 (7) HTN (hypertension) Qualifiers: Hypertension type: essential hypertension Qualified Code(s): I10 - Essential (primary) hypertension Is this a current diagnosis for this admission?: Yes Plan: See admitting attending physician orders. (8) Coronary artery disease without angina pectoris Qualifiers: Coronary Disease-Associated Artery/Lesion type: [place] artery [place] vs. transplanted heart: marshall heart Qualified Code(s): I25.10 - Atherosclerotic heart disease of [place] coronary artery without angina pectoris Is this a current diagnosis for this admission?: Yes Plan: See admitting attending physician orders. (9) Hx of coronary angioplasty Is this a current diagnosis for this admission?: Yes Plan: See admitting attending physician orders. (10) COPD mixed type Is this a current diagnosis for this admission?: Yes Plan: See admitting attending physician orders. (11) Chronic pain syndrome Is this a current diagnosis for this admission?: Yes Plan: See admitting attending physician orders. (12) Osteoarthritis Qualifiers: Osteoarthritis location: unspecified site Osteoarthritis type: unspecified Qualified Code(s): M19.90 - Unspecified osteoarthritis, unspecified site Is this a current diagnosis for this admission?: Yes Plan: See admitting attending physician orders. (13) Bipolar 1 disorder, depressed Is this a current diagnosis for this admission?: Yes Plan: See admitting attending physician orders. (14) Chronic schizoaffective disorder Is this a current diagnosis for this admission?: Yes Plan: See admitting attending physician orders. (15) PTSD (post-traumatic stress disorder) Is this a current diagnosis for this admission?: Yes Plan: See admitting attending physician orders. (16) Fall in home Qualifiers: Encounter type: initial encounter Qualified Code(s): W19.XXXA - Unspecified fall, initial encounter; Y92.009 - Unspecified place in unspecified non-institutional (private) residence as the place of occurrence of the external cause; Y92.009 - Unspecified place in unspecified non-institutional ( private) residence as the place of occurrence of the external cause Is this a current diagnosis for this admission?: Yes Plan: See admitting attending physician orders. (17) Fracture of humerus, left, closed Qualifiers: Encounter type: subsequent encounter Humerus Location: distal Fracture morphology: other fracture Fracture alignment: displaced Qualified Code(s): S42.492A - Other displaced fracture of lower end of left humerus, initial encounter for closed fracture Is this a current diagnosis for this admission?: Yes Plan: See admitting attending physician orders. - Time Time Spent: 50 to 70 Minutes Medications reviewed and adjusted accordingly: Yes Anticipated discharge: Home with Homehealth Within: within 48 hours - Plan Summary Plan Summary: See admitting attending physician orders.
[2018-01-10] MEDS ORDERED: (PENDING PHARMACY ID) (Trazodone Hcl [Desyrel] 300 MG) PO SCH (22:00)
[2018-01-10] MEDS ORDERED: INSULIN GLARGINE,HUM.REC.ANLOG 300 UNIT/3 ML INSULN.PEN SUBCUT SCH (22:00)
[2018-01-10] MEDS ORDERED: LANSOPRAZOLE 30 MG TAB.RAP.DR PO SCH (22:00)
[2018-01-10] MEDS: INSULIN GLARGINE,HUM.REC.ANLOG 1,000 UNIT/10 ML UNIT SUBCUT SCH (22:18)
[2018-01-10] MEDS: INSULIN LISPRO 100 UNIT/ML 3 ML VIAL SUBCUT PRN (22:19)
[2018-01-10] MEDS: FAMOTIDINE 20 MG TABLET PO SCH (22:23)
[2018-01-10] MEDS: DULOXETINE HCL 30 MG CAPSULE.DR PO SCH (22:23)
[2018-01-10] MEDS: BUPROPION HCL 75 MG TABLET PO SCH (22:23)
[2018-01-10] MEDS: GABAPENTIN 300 MG CAPSULE PO SCH (22:24)
[2018-01-10] MEDS: TRAZODONE HCL 50 MG TABLET PO SCH (22:24)
[2018-01-10] MEDS: ARIPIPRAZOLE 5 MG TABLET PO SCH (22:30)
[2018-01-10 22:54] LABS: MEAN CORPUSCULAR HEMOGLOBIN 27.1 pg (27.0-33.4); MEAN CORPUSCULAR HGB CONC 33.8 g/dL (32.0-36.0); MEAN CORPUSCULAR VOLUME 80 fl (80-97); PLATELET COUNT 229 10^3/uL (150-450); RED BLOOD COUNT 2.87 10^6/uL (3.72-5.28); RED CELL DISTRIBUTION WIDTH 17.7 % (11.5-14.0); WHITE BLOOD COUNT 8.8 10^3/uL (4.0-10.5)
[2018-01-10 22:56] LABS: HEMOGLOBIN 7.8 g/dL (12.0-15.5)
[2018-01-11 00:29] LABS: APPEARANCE,URINE SLIGHTLY-CLOUDY; BILIRUBIN,URINE NEGATIVE (NEGATIVE); COLOR,URINE YELLOW; GLUCOSE, URINE NEGATIVE (NEGATIVE); KETONES,URINE NEGATIVE (NEGATIVE); LEUKOCYTE ESTERASE,URINE LARGE (NEGATIVE); NITRITE,URINE NEGATIVE (NEGATIVE); PROTEIN,URINE NEGATIVE (NEGATIVE); URINE SPECIFIC GRAVITY 1.004; UROBILINOGEN,URINE NEGATIVE mg/dL (<2.0)
[2018-01-11] MEDS: LEVOTHYROXINE SODIUM 0.05 MG TABLET PO SCH (05:26)
[2018-01-11] MEDS: GABAPENTIN 300 MG CAPSULE PO SCH ×3 (05:26→21:30)
[2018-01-11] MEDS ORDERED: INSULIN GLARGINE,HUM.REC.ANLOG 300 UNIT/3 ML INSULN.PEN SUBCUT SCH (08:00)
[2018-01-11] MEDS ORDERED: (PENDING PHARMACY ID) (Naloxegol Oxalate 25 MG) PO SCH (08:00)
[2018-01-11] MEDS: INSULIN GLARGINE,HUM.REC.ANLOG 1,000 UNIT/10 ML UNIT SUBCUT SCH ×2 (08:35→22:20)
[2018-01-11] MEDS: INSULIN LISPRO 100 UNIT/ML 3 ML VIAL SUBCUT PRN ×2 (08:36→22:24)
--- NOTE | 2018-01-11 08:37 | PDOC PROGRESS REPORT ---
Subjective Progress Note for:: 01/11/18 Subjective:: Patient denied any chest pain or difficulty with breathing. No abdominal pain, nausea, or vomiting. She had total of 4 units PRBC transfused since admission. No recurrent rectal bleeding since admission. No fever or chills. Reason For Visit: ANEMIA DUE TO ACUTE BLOOD LOSS,INTERNAL AND Physical Exam Vital Signs: Temp Pulse Resp BP Pulse Ox 99.4 F 101 H 16 130/59 H 95 01/11/18 06:27 01/11/18 07:00 01/11/18 06:27 01/11/18 06:27 01/11/18 06:27 Intake & Output 01/10/18 01/11/18 01/12/18 06:59 06:59 06:59 Intake Total 1558 Output Total 200 Balance 1358 Weight 154.7 kg General appearance: PRESENT: no acute distress, morbidly obese Head exam: PRESENT: atraumatic, normocephalic Eye exam: PRESENT: conjunctiva pink, EOMI, PERRLA. ABSENT: scleral icterus Mouth exam: PRESENT: moist Respiratory exam: PRESENT: clear to auscultation christine, decreased breath sounds - at lung bases Cardiovascular exam: PRESENT: RRR. ABSENT: diastolic murmur, rubs, systolic murmur Vascular exam: PRESENT: normal capillary refill. ABSENT: pallor GI/Abdominal exam: PRESENT: normal bowel sounds, soft. ABSENT: distended, guarding, mass, organolmegaly, rebound, tenderness Rectal exam: PRESENT: hemorrhoids Extremities exam: ABSENT: pedal edema Musculoskeletal exam: PRESENT: deformity Neurological exam: PRESENT: alert, awake, oriented to person, oriented to place , oriented to time, oriented to situation, CN II-XII grossly intact. ABSENT: motor sensory deficit Psychiatric exam: PRESENT: appropriate affect, normal mood. ABSENT: homicidal ideation, suicidal ideation Skin exam: PRESENT: dry, intact, rash - chronic stasis changes on legs, warm. ABSENT: cyanosis Results Laboratory Results: 01/10/18 22:45 01/10/18 01/10/18 22:45 23:32 WBC 8.8 RBC 2.87 L Hgb 7.8 L Hct 23.0 L MCV 80 MCH 27.1 MCHC 33.8 RDW 17.7 H Plt Count 229 Urine Color YELLOW Urine Appearance SLIGHTLY-CLOUDY Urine pH 6.0 Ur Specific Boring 1.004 Urine Protein NEGATIVE Urine Glucose (UA) NEGATIVE Urine Ketones NEGATIVE Urine Blood SMALL H Urine Nitrite NEGATIVE Ur Leukocyte Esterase LARGE H Urine WBC (Auto) 51 Urine RBC (Auto) 4 Impressions: Chest X-Ray 01/10/18 07:45 IMPRESSION: Mild cardiomegaly without evidence of acute cardiopulmonary disease. Abdomen/Pelvis CT 01/10/18 09:47 IMPRESSION: 1. No acute or suspicious abdominopelvic abnormality on what is essentially a non contrasted study. 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 transplanted heart: [place] heart Qualified Code(s): I25.10 - Atherosclerotic heart disease of [place] coronary artery without angina pectoris Is this a current diagnosis for this admission?: Yes (9) Hx of coronary angioplasty Is this a current diagnosis for this admission?: Yes (10) COPD mixed type Is this a current diagnosis for this admission?: Yes (11) Chronic pain syndrome Is this a current diagnosis for this admission?: Yes (12) Osteoarthritis Qualifiers: Osteoarthritis location: unspecified site Osteoarthritis type: unspecified Qualified Code(s): M19.90 - Unspecified osteoarthritis, unspecified site Is this a current diagnosis for this admission?: Yes (13) Bipolar 1 disorder, depressed Is this a current diagnosis for this admission?: Yes (14) Chronic schizoaffective disorder Is this a current diagnosis for this admission?: Yes (15) PTSD (post-traumatic stress disorder) Is this a current diagnosis for this admission?: Yes (16) Fall in home Qualifiers: Encounter type: initial encounter Qualified Code(s): W19.XXXA - Unspecified fall, initial encounter; Y92.009 - Unspecified place in unspecified non-institutional (private) residence as the place of occurrence of the external cause; Y92.009 - Unspecified place in unspecified non-institutional ( private) residence as the place of occurrence of the external cause Is this a current diagnosis for this admission?: Yes (17) Fracture of humerus, left, closed Qualifiers: Encounter type: subsequent encounter Humerus Location: distal Fracture morphology: other fracture Fracture alignment: displaced Qualified Code(s): S42.492A - Other displaced fracture of lower end of left humerus, initial encounter for closed fracture Is this a current diagnosis for this admission?: Yes (18) Abnormal urinalysis Is this a current diagnosis for this admission?: Yes Plan: Obtain urine culture. - Time Time Spent with patient: 25-34 minutes Medications reviewed and adjusted accordingly: Yes Anticipated discharge: Home with Homehealth Within: within 24 hours - Inpatient Certification Based on my medical assessment, after consideration of the patient's comorbidities, presenting symptoms, or acuity I expect that the services needed warrant INPATIENT care.: Yes I certify that my determination is in accordance with my understanding of Medicare's requirements for reasonable and necessary INPATIENT services [42 CFR 412.3e].: Yes Medical Necessity: Need Close Monitoring Due to Risk of Patient Decompensation, Need For IV Fluids, Need For Continuous Telemetry Monitoring, Risk of Complication if Not Cared For in Hospital Post Hospital Care: D/C [employer] Manager Documentation - Plan Summary Plan Summary: See attending physician orders. I will change her patient status to full admission in view of extent of needed blood transfusion, EMR, and possible UTI under evaluation.
[2018-01-11] MEDS ORDERED: (PENDING PHARMACY ID) (Aripiprazole [Abilify 30 Mg Tablet] 15 MG) PO SCH (10:00)
[2018-01-11] MEDS ORDERED: FUROSEMIDE 40 MG TABLET PO SCH (10:00)
[2018-01-11] MEDS ORDERED: VALSARTAN 160 MG TABLET PO SCH (10:00)
[2018-01-11] MEDS ORDERED: (PENDING PHARMACY ID) (Liraglutide [Victoza 2-Pak] 1.8 MG) SQ SCH (10:00)
[2018-01-11] MEDS ORDERED: LACTULOSE 30 GM PO SCH (10:00)
[2018-01-11] MEDS ORDERED: SAXAGLIPTIN HCL 2.5 MG PO SCH (10:00)
[2018-01-11] MEDS ORDERED: AMITRIPTYLINE HCL 150 MG PO SCH (10:00)
[2018-01-11] MEDS ORDERED: BUDESONIDE/FORMOTEROL 160-4.5 MCG 60 PUFF/6 GM MDI IH SCH (10:00)
[2018-01-11] MEDS: MAGNESIUM OXIDE 400 MG TABLET PO SCH ×2 (11:00→18:03)
[2018-01-11] MEDS: AMITRIPTYLINE HCL 75 MG TABLET PO SCH (11:00)
[2018-01-11] MEDS: BUPROPION HCL 75 MG TABLET PO SCH ×2 (11:01→21:30)
[2018-01-11] MEDS: BENZTROPINE MESYLATE 1 MG TABLET PO SCH ×2 (11:01→18:03)
[2018-01-11] MEDS: FAMOTIDINE 20 MG TABLET PO SCH ×2 (11:02→21:30)
[2018-01-11] MEDS: DULOXETINE HCL 30 MG CAPSULE.DR PO SCH ×2 (11:02→21:29)
[2018-01-11] MEDS: BUDESONIDE/FORMOTEROL 160-4.5 MCG 60 PUFF/6 GM MDI IH SCH ×2 (11:03→21:32)
[2018-01-11] MEDS: LACTULOSE SYRUP 20 GM/30 ML UDCUP PO SCH (11:03)
[2018-01-11] MEDS: SITAGLIPTIN PHOSPHATE 50 MG TABLET PO SCH (11:08)
[2018-01-11] MEDS: VALSARTAN 160 MG TABLET PO SCH (11:09)
[2018-01-11] MEDS: NITROGLYCERIN 5 MG (0.2 MG/HR) PATCH.TD24 TD SCH (11:10)
[2018-01-11] MEDS: ARIPIPRAZOLE 5 MG TABLET PO SCH ×2 (11:12→21:30)
[2018-01-11] MEDS: SILVER SULFADIAZINE 1% CREAM 50 GM TOP SCH ×2 (11:23→17:59)
[2018-01-11 11:54] LABS: HEMATOCRIT 28.6 % (36.0-47.0); HEMOGLOBIN 9.7 g/dL (12.0-15.5); MEAN CORPUSCULAR HEMOGLOBIN 27.6 pg (27.0-33.4); MEAN CORPUSCULAR HGB CONC 33.7 g/dL (32.0-36.0); MEAN CORPUSCULAR VOLUME 82 fl (80-97); PLATELET COUNT 268 10^3/uL (150-450)
[2018-01-11] MEDS ORDERED: SIMVASTATIN 10 MG TABLET PO SCH (17:00)
[2018-01-11] MEDS ORDERED: (PENDING PHARMACY ID) (Bupropion Hcl [Wellbutrin Sr 150 Mg Tablet] 150 MG) PO SCH (18:00)
[2018-01-11] MEDS ORDERED: BISACODYL 10 MG SUPP.RECT PR ONE (20:00)
[2018-01-11] MEDS: TRAZODONE HCL 50 MG TABLET PO SCH (21:31)
[2018-01-11] MEDS ORDERED: FAMOTIDINE 20 MG TABLET PO SCH (22:00)
[2018-01-12] MEDS: OXYCODONE-ACETAMINOPHEN 5-325 MG TABLET PO PRN ×2 (00:21→13:15)
[2018-01-12] MEDS: GABAPENTIN 300 MG CAPSULE PO SCH ×2 (05:25→13:47)
[2018-01-12] MEDS: LEVOTHYROXINE SODIUM 0.05 MG TABLET PO SCH (05:25)
[2018-01-12 09:11] VITALS: BP 148/64
[2018-01-12 09:24] LABS: ABSOLUTE EOSINOPHILS # (AUTO) 0.2 10^3/uL (0.0-0.6); ABSOLUTE LYMPHOCYTES (AUTO) 2.4 10^3/uL (0.5-4.7); ABSOLUTE MONOCYTES (AUTO) 0.6 10^3/uL (0.1-1.4); ABSOLUTE NEUT (AUTO) 7.1 10^3/uL (1.7-8.2); BASOPHILS % (AUTO) 0.3 % (0-2); EOSINOPHILS % (AUTO) 1.5 % (0-6); HEMATOCRIT 28.7 % (36.0-47.0); HEMOGLOBIN 9.6 g/dL (12.0-15.5); MEAN CORPUSCULAR HEMOGLOBIN 27.6 pg (27.0-33.4); MEAN CORPUSCULAR HGB CONC 33.6 g/dL (32.0-36.0); MEAN CORPUSCULAR VOLUME 82 fl (80-97); MONOCYTES % (AUTO) 6.1 % (3-13); PLATELET COUNT 275 10^3/uL (150-450); RED BLOOD COUNT 3.48 10^6/uL (3.72-5.28); RED CELL DISTRIBUTION WIDTH 17.1 % (11.5-14.0); SEGMENTED NEUTROPHILS % (AUTO) 69.1 % (42-78); TOTAL CELLS COUNTED % (AUTO) 100 %; WHITE BLOOD COUNT 10.2 10^3/uL (4.0-10.5)
[2018-01-12 09:54] LABS: ALANINE AMINOTRANSFERASE 32 U/L (9-52); ALBUMIN 3.9 g/dL (3.5-5.0); ALKALINE PHOSPHATASE 225 U/L (38-126); ANION GAP 15 (5-19); ASPARTATE AMINO TRANSFERASE 31 U/L (14-36); BILIRUBIN,DIRECT 0.4 mg/dL (0.0-0.4); BILIRUBIN,TOTAL 0.4 mg/dL (0.2-1.3); BLOOD UREA NITROGEN 12 mg/dL (7-20); CALCIUM 9.2 mg/dL (8.4-10.2); CARBON DIOXIDE 30 mmol/L (22-30); CHLORIDE 98 mmol/L (98-107); GLUCOSE 103 mg/dL (75-110); POTASSIUM 3.9 mmol/L (3.6-5.0); SODIUM 142.8 mmol/L (137-145); TOTAL PROTEIN 7.8 g/dL (6.3-8.2)
[2018-01-12] MEDS: AMITRIPTYLINE HCL 75 MG TABLET PO SCH (11:12)
[2018-01-12] MEDS: ARIPIPRAZOLE 5 MG TABLET PO SCH (11:13)
[2018-01-12] MEDS: NITROGLYCERIN 5 MG (0.2 MG/HR) PATCH.TD24 TD SCH (11:13)
[2018-01-12] MEDS: FAMOTIDINE 20 MG TABLET PO SCH (11:13)
[2018-01-12] MEDS: MAGNESIUM OXIDE 400 MG TABLET PO SCH (11:14)
[2018-01-12] MEDS: DULOXETINE HCL 30 MG CAPSULE.DR PO SCH (11:14)
[2018-01-12] MEDS: VALSARTAN 160 MG TABLET PO SCH (11:14)
[2018-01-12] MEDS: BENZTROPINE MESYLATE 1 MG TABLET PO SCH (11:14)
[2018-01-12] MEDS: BUPROPION HCL 75 MG TABLET PO SCH (11:15)
[2018-01-12] MEDS: BUDESONIDE/FORMOTEROL 160-4.5 MCG 60 PUFF/6 GM MDI IH SCH (11:17)
[2018-01-12] MEDS: SITAGLIPTIN PHOSPHATE 50 MG TABLET PO SCH (11:25)
--- NOTE | 2018-01-12 13:07 | RADIOLOGY REPORT (SQ) ---
EXAM DESCRIPTION: NM GI BLEED SCAN COMPLETED DATE/TIME: 01/12/2018 12:52 pm REASON FOR STUDY: celina blood in stool D46.22 REFRACTORY ANEMIA WITH EXCESS OF BLASTS 2 R82.99 OTH ER ABNORMAL FINDINGS IN URINE COMPARISON: None. RADIONUCLIDE AND DOSE: 24.9 millicuries Technetium-labeled red blood cells. The route of agent administration: Intravenous. TECHNIQUE: Serial arterial-phase images acquired for 80 seconds immediately following injection of r adionuclide. Additional 60 images acquired at 60 seconds per image. LIMITATIONS: Study is limited due to the patient's condition. FINDINGS: Serial images show no abnormal accumulation of radionuclide. IMPRESSION: NORMAL RADIONUCLIDE GASTROINTESTINAL BLEEDING STUDY. TECHNICAL DOCUMENTATION: JOB ID: [id number] [employer]- All Rights Reserved Reading location - IP/workstation name: [email or web address]
[2018-01-12] MEDS: INSULIN GLARGINE,HUM.REC.ANLOG 1,000 UNIT/10 ML UNIT SUBCUT SCH (14:09)
[2018-01-12] MEDS: SILVER SULFADIAZINE 1% CREAM 50 GM TOP SCH (14:09)
[2018-01-12] MEDS: LACTULOSE SYRUP 20 GM/30 ML UDCUP PO SCH (14:09)
--- NOTE | 2018-01-12 16:16 | PDOC DISCHARGE SUMMARY ---
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 Is this a current diagnosis for this admission?: Yes (7) HTN (hypertension) Is this a current diagnosis for this admission?: Yes (8) Coronary artery disease without angina pectoris Is this a current diagnosis for this admission?: Yes (9) Hx of coronary angioplasty Is this a current diagnosis for this admission?: Yes (10) COPD mixed type Is this a current diagnosis for this admission?: Yes (11) Chronic pain syndrome Is this a current diagnosis for this admission?: Yes (12) Osteoarthritis Is this a current diagnosis for this admission?: Yes (13) Bipolar 1 disorder, depressed Is this a current diagnosis for this admission?: Yes (14) Chronic schizoaffective disorder Is this a current diagnosis for this admission?: Yes (15) PTSD (post-traumatic stress disorder) Is this a current diagnosis for this admission?: Yes (16) Fall in home Is this a current diagnosis for this admission?: Yes (17) Fracture of humerus, left, closed Is this a current diagnosis for this admission?: Yes (18) Abnormal urinalysis Is this a current diagnosis for this admission?: Yes - Additional Information Resuscitation Status: Full Code Discharge Diet: Cardiac, Diabetic Discharge Activity: Activity As Tolerated Home Medications: Albuterol Sulfate [Proair HFA Inhalation Aerosol 8.5 gm MDI] 2 puff IH Q4HP PRN 01/10/18 Amitriptyline HCl [Elavil 150 mg Tablet] 150 mg PO DAILY 01/10/18 Aripiprazole [Abilify 30 mg Tablet] 15 mg PO BID 01/10/18 Benztropine Mesylate [Cogentin 1 mg Tablet] 1 mg PO BID 01/10/18 Budesonide/Formoterol Fumarate [Symbicort HFA 160-4.5 mcg Inhaler 6 gm] 2 puff IH BID 01/10/18 Bupropion HCl [Wellbutrin Sr 150 mg Tablet] 150 mg PO QPM 01/10/18 Diclofenac Sodium [Voltaren] 1 applic TOP TIDP PRN 01/10/18 Docusate Sodium [Colace 100 mg Capsule] 100 mg PO BIDP PRN 01/10/18 Duloxetine HCl [Cymbalta] 60 mg PO BID 01/10/18 Furosemide [Lasix 40 mg Tablet] 40 mg PO BID 01/10/18 Gabapentin [Neurontin 300 mg Capsule] 300 mg PO Q8 01/10/18 Insulin Glargine,Hum.rec.anlog [Lantus Solostar] 55 units SQ QAM 01/10/18 Insulin Glargine,Hum.rec.anlog [Lantus Solostar] 65 units SQ QHS 01/10/18 Insulin Lispro [Humalog Kwikpen U-100] 0 units SQ .PERSLIDINGSCALE 01/10/18 Ipratropium/Albuterol Sulfate [Duoneb 3 ml Ampul] 3 ml NEB RTQ6HP PRN 01/10/18 Lactulose [Constulose 10 gm/15 mL Oral Solution] 10 gm PO DAILYP PRN 01/10/18 Lactulose [Kristalose 10 gm Packet] 30 gm PO DAILY 01/10/18 Levothyroxine Sodium [Synthroid] 50 mcg PO Q6AM 01/10/18 Liraglutide [Victoza 2-Armando] 1.8 mg SQ DAILY 01/10/18 Magnesium Oxide [Mag-Ox 400 mg Tablet] 400 mg PO BID 01/10/18 Methocarbamol [Robaxin 500 mg Tablet] 500 mg PO TIDP PRN 01/10/18 Naloxegol Oxalate [Movantik 25 mg Tablet] 25 mg PO QAM 01/10/18 Nitroglycerin [Nitro-Dur 5 mg (0.2 mg/Hr) Transdermal Patch] 0.2 mg TD DAILY Omeprazole 40 mg PO Q12 01/10/18 Oxycodone HCl/Acetaminophen [Percocet 10-325 mg Tablet] 1 tab PO Q8HP PRN Saxagliptin HCl [Onglyza] 2.5 mg PO DAILY 01/10/18 Silver Sulfadiazine [Ssd] 1 applic TOP BID 01/10/18 Simvastatin [Zocor 20 mg Tablet] 20 mg PO WSUPPER 01/10/18 Trazodone HCl [Desyrel] 300 mg PO QHS 01/10/18 Valsartan [Diovan 160 mg Tablet] 160 mg PO DAILY 01/10/18 History of Present Illness Patient complains of: Rectal bleeding History of Present Illness: SANTOS NAVARRO is a 57 year old female known to my practice who was brought to the ED by EMS personnel due to reported rectal bleeding. Patient has history of internal and external hemorrhoids, status post surgical attempts at repair. She reported note bleeding early on the day of her presentation with about 7 days history of worsening constipation. She reported associated nausea, vomiting, and abdominal pain. No chest pain or difficulty with breathing. She claimed associated chills and intermittent burning with urination. She denied any fever. She reported episode of fall in her kitchen earlier in the day. Her initial evaluation in the ED was significant for severe anemia with hemoglobin level at 6.4g/dL and worsening renal indices. Patient did eventually agreed to blood transfusion as part of her medical management. Her extensive morbidities include Chronic systolic Congestive Heart Failure, Coronary Artery Disease with old Myocardial infarction s/p two stent angioplasty, Hypercholesterolemia, Hypertension, Peripheral Vascular Disease, Asthma, COPD on supplemental oxygen at 2L/min via nasal cannula, Migraine, Diabetes Mellitus Type 2, Hypothyroidism , Stage IV Chronic Kidney Disease, Gastroesophageal Reflux Disease, Arthritis, left distal humeral fracture, Bipolar Disorder, Schizophrenia, Depression, and Post Traumatic Stress Disorder. Hospital Course Hospital Course: Patient was transfused total 4 units of PRBC during this hospitalization due to acute blood loss anemia from possible GI bleeding. She had recurrent bleed post transfusion. Her bleeding scan was reported normal despite reported bleeding by patient and nursing staff just prior to the procedure. She denied any abdominal pain. No nausea or vomiting. No fever or chills. No chest pain or difficulty with breathing. Patient reported that her last pap smear was completed by Dr Pereyra about 6 months ago without any reported abnormality. Her lasted CBC revealed satisfactory hemoglobin at 9.6gm/dL. She will be discharged home today and follow up in the office as instructed as instructed. Physical Exam Vital Signs: Temp Pulse Resp BP Pulse Ox 97.8 F 83 16 148/64 H 95 01/12/18 08:00 01/12/18 10:35 01/12/18 10:35 01/12/18 08:00 01/12/18 08:00 Intake & Output 01/11/18 01/12/18 01/13/18 06:59 06:59 06:59 Intake Total 1780 Output Total 650 Balance 1130 Weight 153.2 kg Physical Exam: General appearance: PRESENT: no acute distress, morbidly obese Head exam: PRESENT: atraumatic, normocephalic Eye exam: PRESENT: conjunctiva pink, EOMI, PERRLA. ABSENT: scleral icterus Mouth exam: PRESENT: moist Respiratory exam: PRESENT: clear to auscultation christine, decreased breath sounds - at lung bases Cardiovascular exam: PRESENT: RRR. ABSENT: diastolic murmur, rubs, systolic murmur Vascular exam: PRESENT: normal capillary refill. ABSENT: pallor GI/Abdominal exam: PRESENT: normal bowel sounds, soft. ABSENT: distended, guarding, mass, organomegaly, rebound, tenderness Rectal exam: PRESENT: hemorrhoids Extremities exam: ABSENT: pedal edema Musculoskeletal exam: PRESENT: deformity Neurological exam: PRESENT: alert, awake, oriented to person, oriented to place , oriented to time, oriented to situation, CN II-XII grossly intact. ABSENT: motor sensory deficit Psychiatric exam: PRESENT: appropriate affect, normal mood. ABSENT: homicidal ideation, suicidal ideation Skin exam: PRESENT: dry, intact, rash - chronic stasis changes on legs, warm. ABSENT: cyanosis Results Laboratory Results: 01/12/18 08:59 01/12/18 08:59 01/12/18 01/12/18 08:59 08:59 WBC 10.2 RBC 3.48 L Hgb 9.6 L Hct 28.7 L MCV 82 MCH 27.6 MCHC 33.6 RDW 17.1 H Plt Count 275 Seg Neutrophils % 69.1 Lymphocytes % 23.0 Monocytes % 6.1 Eosinophils % 1.5 Basophils % 0.3 Absolute Neutrophils 7.1 Absolute Lymphocytes 2.4 Absolute Monocytes 0.6 Absolute Eosinophils 0.2 Absolute Basophils 0.0 Sodium 142.8 Potassium 3.9 Chloride 98 Carbon Dioxide 30 Anion Gap 15 BUN 12 Creatinine 1.24 Est GFR ( Amer) 54 L Est GFR (Non-Af Amer) 44 L Glucose 103 Calcium 9.2 Total Bilirubin 0.4 AST 31 ALT 32 Alkaline Phosphatase 225 H Total Protein 7.8 Albumin 3.9 Impressions: Chest X-Ray 01/10/18 07:45 IMPRESSION: Mild cardiomegaly without evidence of acute cardiopulmonary disease. Abdomen/Pelvis CT 01/10/18 09:47 IMPRESSION: 1. No acute or suspicious abdominopelvic abnormality on what is essentially a non contrasted study. GI Bleed Scan Nuclear Medicine 01/12/18 09:00 IMPRESSION: NORMAL RADIONUCLIDE GASTROINTESTINAL BLEEDING STUDY. Qualifiers - * PATIENT BEING DISCHARGED WITH ANY OF THE FOLLOWING DIAGNOSIS: No Plan Discharge Plan: D/C home today. Follow up in the office as instructed upon discharge.
== END 2018-01-12 16:41 | disposition home or self-care (01) | DRG 812 ==
LOC: ER 06:10 → EH 13:35 → 3N 19:50 → OBSVTOIN 01-11 08:37
PROVIDERS: ADMIT Internal Medicine Geriatric Medicine; ATTEND Internal Medicine Geriatric Medicine
PROC: 30233N1 Transfusion of Nonautologous Red Blood Cells into Peripheral Vein, Percutaneous Approach (ICD-10-PCS; 2018-01-10)
PROC: 30233N1 Transfusion of Nonautologous Red Blood Cells into Peripheral Vein, Percutaneous Approach (ICD-10-PCS; principal; 2018-01-11)
DX: D62 Acute posthemorrhagic anemia (principal); N17.9 Acute kidney failure, unspecified; I50.22 Chronic systolic (congestive) heart failure; I13.0 Hypertensive heart and chronic kidney disease with heart failure and stage 1 through stage 4 chronic kidney disease, or unspecified chronic kidney disease; N18.4 Chronic kidney disease, stage 4 (severe); K64.8 Other hemorrhoids; I73.9 Peripheral vascular disease, unspecified; E78.00 Pure hypercholesterolemia, unspecified; E11.22 Type 2 diabetes mellitus with diabetic chronic kidney disease; R82.99 Other abnormal findings in urine; K59.03 Drug induced constipation; T40.2X5A Adverse effect of other opioids, initial encounter; I25.10 Atherosclerotic heart disease of native coronary artery without angina pectoris; Z95.1 Presence of aortocoronary bypass graft; J44.9 Chronic obstructive pulmonary disease, unspecified; G89.4 Chronic pain syndrome; F31.9 Bipolar disorder, unspecified; F43.10 Post-traumatic stress disorder, unspecified; F25.9 Schizoaffective disorder, unspecified; Z88.6 Allergy status to analgesic agent; Z88.1 Allergy status to other antibiotic agents; Z88.8 Allergy status to other drugs, medicaments and biological substances; Z88.0 Allergy status to penicillin; Z88.2 Allergy status to sulfonamides; I25.2 Old myocardial infarction; Z95.5 Presence of coronary angioplasty implant and graft; M79.7 Fibromyalgia; Z90.710 Acquired absence of both cervix and uterus; Z79.4 Long term (current) use of insulin; Z79.899 Other long term (current) drug therapy; K64.4 Residual hemorrhoidal skin tags; S42.492D Other displaced fracture of lower end of left humerus, subsequent encounter for fracture with routine healing; Z91.81 History of falling
CPT/HCPCS: 36415; 36430; 71045; 74176; 78278; 80053; 81001; 82272; 82962; 85025; 85027; 85610; 85730; 86850; 86900; 86901; 86920; 87086; 87088; 87186; 94640; 96360; 96361; 99285; A9560; G0378; J1642; J1815; J3490; J7030; J7620; P9016

== ENCOUNTER 2018-01-18 22:35 | Inpatient (IN) | payer MEDICARE, MEDICAID ==
--- NOTE | 2018-01-18 23:13 | EKG REPORT ---
SEVERITY:- OTHERWISE NORMAL ECG - SINUS TACHYCARDIA : Confirmed by: Maurice Nieto 18-Jan-2018 23:12:39
--- NOTE | 2018-01-18 23:32 | ER Document Report ---
ED General - General Chief Complaint: Weakness Stated Complaint: WEAKNESS Time Seen by Provider: 01/18/18 23:03 TRAVEL OUTSIDE OF THE [place] IN LAST 30 DAYS: No - HPI Notes: 57-year-old female with a past medical history of Chronic systolic Congestive Heart Failure, Coronary Artery Disease with old Myocardial infarction s/p two stent angioplasty, Hypercholesterolemia, Hypertension, Peripheral Vascular Disease, Asthma, COPD on supplemental oxygen at 2L/min via nasal cannula, Migraine, Diabetes Mellitus Type 2, Hypothyroidism, Stage IV Chronic Kidney Disease, Gastroesophageal Reflux Disease, Arthritis, left distal humeral fracture, Bipolar Disorder, Schizophrenia, Depression, and Post Traumatic Stress Disorder presents after a fall last night. She reports persistent severe buttocks pain. She normally ambulates with a cane. She has frequent falls related to uncontrollable tremors. She states "nobody can figure out why I shake." She has a left elbow fracture in a splint and is scheduled to follow- up with orthopedist tomorrow. She was just discharged from the hospital January 12 for GI bleed causing acute blood loss anemia with a hemoglobin of 6.4. She received transfusion with improvement of symptoms. She had a bleeding study that was normal. She reports continued generalized weakness. She has no new complaints except for buttocks pain. - Related Data Allergies/Adverse Reactions: cephalexin monohydrate [From Keflex] Allergy (Unknown, Verified 12/24/17 17:38) codeine [Codeine] Allergy (Unknown, Verified 12/24/17 17:38) dicyclomine HCl [From Bentyl] Allergy (Unknown, Verified 12/24/17 17:38) hydrocodone bitartrate [From Vicodin] Allergy (Unknown, Verified 12/24/17 17:38) meloxicam [From Mobic] Allergy (Unknown, Verified 12/24/17 17:38) meperidine HCl [From Demerol (PF)] Allergy (Unknown, Verified 12/24/17 17:38) morphine [Morphine] Allergy (Unknown, Verified 12/24/17 17:38) naproxen sodium [From Naprelan CR Dosepak] Allergy (Unknown, Verified 12/24/17 17:38) nitrofurantoin [From Macrobid] Allergy (Unknown, Verified 12/24/17 17:38) pantoprazole sodium [From Protonix] Allergy (Unknown, Verified 12/24/17 17:38) Penicillins Allergy (Unknown, Verified 12/24/17 17:38) Sulfa (Sulfonamide Antibiotics) Allergy (Unknown, Verified 12/24/17 17:38) lamotrigine [From Lamictal] Allergy (Verified 12/24/17 17:38) rash Past Medical History - Social History Smoking Status: Never Smoker Chew tobacco use (# tins/day): Yes Family History: None Patient has suicidal ideation: No Patient has homicidal ideation: No - Past Medical History Cardiac Medical History: Reports: Hx Congestive Heart Failure, Hx Coronary Artery Disease, Hx Heart Attack - 2 STENTS, Hx Hypercholesterolemia, Hx Hypertension, Hx Peripheral Vascular Disease Denies: Hx Heart Murmur Pulmonary Medical History: Reports: Hx Asthma, Hx Bronchitis, Hx COPD - WEARS 2 LNC 24HRS/DAY, Hx Sleep Apnea Denies: Hx Pneumonia, Hx Respiratory Failure, Hx Tuberculosis Neurological Medical History: Reports: Hx Migraine. Denies: Hx Cerebrovascular Accident, Hx Seizures Endocrine Medical History: Reports: Hx Diabetes Mellitus Type 2, Hx Hyperthyroidism, Hx Hypothyroidism Renal/ Medical History: Reports: Hx End Stage Renal Disease - Stage IV, no dialysis yet, Hx Renal Insufficiency. Denies: Hx Peritoneal Dialysis Malignancy Medical History: GI Medical History: Reports: Hx Gastroesophageal Reflux Disease. Denies: Hx Pancreatitis Musculoskeletal Medical History: Denies Hx Arthritis, Reports Hx Fibromyalgia, Reports Hx Muscle Weakness Psychiatric Medical History: Reports: Hx Bipolar Disorder, Hx Depression, Hx Post Traumatic Stress Disorder, Hx Schizophrenia Traumatic Medical History: Infectious Medical History: Past Surgical History: Reports: Hx Cardiac Catheterization, Hx Section - x2, Hx Coronary Artery Bypass Graft, Hx Coronary Stent - x2, Hx Hysterectomy, Hx Orthopedic Surgery, Hx Tubal Ligation - Immunizations Hx Diphtheria, Pertussis, Tetanus Vaccination: Yes Hx Pneumococcal Vaccination: 04/02/13 Review of Systems - Review of Systems Notes: REVIEW OF SYSTEMS: CONSTITUTIONAL: -fevers, -chills, +fatigue EENT: -eye pain, -difficulty swallowing, -nasal congestion CARDIOVASCULAR: -chest pain, -syncope. RESPIRATORY: -cough, -SOB GASTROINTESTINAL: +abdominal pain, -nausea, -vomiting, -diarrhea, +rectal bleeding GENITOURINARY: -dysuria, -hematuria MUSCULOSKELETAL: +back pain, +neck pain, +pain all over SKIN: -rash or skin lesions. HEMATOLOGIC: -easy bruising or bleeding. LYMPHATIC: -swollen, enlarged glands. NEUROLOGICAL: -altered mental status or loss of consciousness, -headache, + uncontrolled tremors PSYCHIATRIC: +anxiety, +depression. Physical Exam - Vital signs Vitals: Resp 23 H 01/18/18 22:51 Interpretation: Hypotensive, Tachycardic - Notes Notes: PHYSICAL EXAMINATION: GENERAL: Chronically ill-appearing, morbidly obese, no acute distress. HEAD: Atraumatic, normocephalic. EYES: Pupils equal round and reactive to light, extraocular movements intact, conjunctiva are normal. ENT: nares patent, oropharynx clear without exudates. Moist mucous membranes. NECK: Normal range of motion, supple without lymphadenopathy LUNGS: Breath sounds clear to auscultation bilaterally and equal. No wheezes rales or rhonchi. HEART: Regular rhythm, tachycardia, no chest wall tenderness ABDOMEN: Soft, nontender, normoactive bowel sounds. No guarding, no rebound. No masses appreciated. EXTREMITIES: Splint left elbow with limited range of motion. Chronic bilateral 4+ lymphedema. Diffuse back tenderness to all areas of palpation. Exam limited by body habitus. No cyanosis. NEUROLOGICAL: Cranial nerves grossly intact. Normal speech, normal gait. Normal sensory and motor exams. PSYCH: Normal mood, normal affect. SKIN: Warm, Dry, normal turgor, no rashes or lesions noted. Pale. Course - Re-evaluation Re-evalutation: 01/18/18 23:32 Chronic sinus tachycardia. Initial blood pressure 89/55 and increased to low 100s systolic. Recently admitted for GI bleed will recheck labs as patient reports continued blood loss in stools. X-rays ordered. 01/18/18 23:53 labs still pending. xray results pending. discussed with Dr Gongora at shift change. - Vital Signs Vital signs: Temp Pulse Resp BP Pulse Ox 97.8 F 13 106/55 L 100 01/18/18 22:54 01/18/18 23:01 01/18/18 23:01 01/18/18 22:54 - Transfer of Care Care transferred to following provider: Rolan Discharge - Discharge Referrals: JASSON MARTINI MD [Primary Care Provider] - Follow up as needed
--- NOTE | 2018-01-19 00:26 | RADIOLOGY REPORT (SQ) ---
Lumbar spine four view on 01/18/2018 at 11:44 PM CLINICAL INDICATION: Low back pain after fall COMPARISON: None currently available FINDINGS: Degenerative facet disease is noted in the lower lumbar spine. There is grade 1 spondylolisthesis at L4-5 secondary to degenerative facet disease. The lumbar spine is otherwise well aligned. There are no fractures. Degenerative disc disease is noted worse in the lower thoracic spine. No other bony abnormality is noted. IMPRESSION: Degenerative changes with no acute abnormality.
--- NOTE | 2018-01-19 00:28 | RADIOLOGY REPORT (SQ) ---
Sacrum and coccyx two view on 01/18/2018 at 11:42 PM CLINICAL INDICATION: Pain after fall COMPARISON: None currently available FINDINGS: Only two AP views are obtained without lateral view on this examination however this is compared with the lateral view of the lumbar spine obtained on the same day. The SI joints are well aligned. There are no fractures. No bony abnormality is noted. IMPRESSION: No acute abnormality.
[2018-01-19 02:13] LABS: HEMATOCRIT 17.1 % (36.0-47.0); MEAN CORPUSCULAR HEMOGLOBIN 26.6 pg (27.0-33.4); MEAN CORPUSCULAR HGB CONC 32.8 g/dL (32.0-36.0); MEAN CORPUSCULAR VOLUME 81 fl (80-97); RED BLOOD COUNT 2.11 10^6/uL (3.72-5.28); RED CELL DISTRIBUTION WIDTH 17.5 % (11.5-14.0)
[2018-01-19 02:30] LABS: PLATELET COUNT 284 10^3/uL (150-450)
[2018-01-19 02:33] LABS: ABSOLUTE LYMPHOCYTES# (MANUAL) 2.7 10^3/uL (0.5-4.7); ABSOLUTE NEUTROPHILS# (MANUAL) 8.8 10^3/uL (1.7-8.2); BASOPHILS % (MANUAL) 0 % (0-2); EOSINOPHILS % (MANUAL) 3 % (0-6); LYMPHOCYTES % (MANUAL) 21 % (13-45); MONOCYTES % (MANUAL) 8 % (3-13); SEGMENTED NEUTROPHILS % (MAN) 68 % (42-78); TOTAL CELLS COUNTED 100
[2018-01-19 02:35] LABS: ALANINE AMINOTRANSFERASE 21 U/L (9-52); ALBUMIN 3.5 g/dL (3.5-5.0); ALKALINE PHOSPHATASE 178 U/L (38-126); ANION GAP 12 (5-19); ANISOCYTOSIS 1+; ASPARTATE AMINO TRANSFERASE 17 U/L (14-36); BILIRUBIN,DIRECT 0.4 mg/dL (0.0-0.4); BILIRUBIN,TOTAL 0.4 mg/dL (0.2-1.3); BLOOD UREA NITROGEN 54 mg/dL (7-20); CALCIUM 8.6 mg/dL (8.4-10.2); CARBON DIOXIDE 26 mmol/L (22-30); CHLORIDE 101 mmol/L (98-107); CREATINE KINASE 77 U/L (30-135); GLUCOSE 185 mg/dL (75-110); OVALOCYTES SLIGHT; PLATELET CLUMPS PRESENT; PLATELET COMMENT ADEQUATE; POIKILOCYTOSIS SLIGHT; POTASSIUM 5.9 mmol/L (3.6-5.0); SODIUM 138.8 mmol/L (137-145)
[2018-01-19 02:40] LABS: HEMOGLOBIN 5.6 g/dL (12.0-15.5)
[2018-01-19 02:48] LABS: TROPONIN I < 0.012 ng/mL
[2018-01-19] MEDS ORDERED: NORMAL SALINE 250 ML IV PRN (02:48)
[2018-01-19] MEDS ORDERED: INSULIN LISPRO 100 UNIT/ML 3 ML VIAL SUBCUT ONE (03:14)
[2018-01-19] MEDS ORDERED: CALCIUM GLUCONATE 1000 MG/10 ML INJ IV ONE (03:15)
[2018-01-19 04:18] LABS: VENOUS BLOOD BASE EXCESS 0.9 mmol/L; VENOUS BLOOD PCO2 57.7 mmHg (35-63); VENOUS BLOOD PH 7.3 (7.30-7.42)
[2018-01-19] MEDS ORDERED: DEXTROSE 50%-WATER SYRINGE 25 GM/50 ML DOSE IV PRN (05:55)
[2018-01-19] MEDS ORDERED: DEXTROSE 50%-WATER SYRINGE 12.5 GM/25 ML DOSE IV PRN (05:55)
[2018-01-19] MEDS ORDERED: DEXTROSE 40% GEL 15 GM TUBE X 2 PO PRN (05:55)
[2018-01-19] MEDS ORDERED: DEXTROSE 40% GEL 15 GM TUBE PO PRN (05:55)
[2018-01-19] MEDS ORDERED: GLUCAGON,HUMAN RECOMB 1 MG INJ IM PRN (05:55)
[2018-01-19 08:46] LABS: APPEARANCE,URINE TURBID; BILIRUBIN,URINE NEGATIVE (NEGATIVE); GLUCOSE, URINE NEGATIVE (NEGATIVE); KETONES,URINE NEGATIVE (NEGATIVE); LEUKOCYTE ESTERASE,URINE LARGE (NEGATIVE); NITRITE,URINE POSITIVE (NEGATIVE); PROTEIN,URINE 30 mg/dL (NEGATIVE); URINE SPECIFIC GRAVITY 1.012; UROBILINOGEN,URINE NEGATIVE mg/dL (<2.0)
[2018-01-19 08:48] LABS: COLOR,URINE YELLOW
[2018-01-19 08:57] LABS: ARTERIAL BLOOD BASE EXCESS 4.8 mmol/L; ARTERIAL BLOOD H2CO3 1.78 mmol/L (1.05-1.35); ARTERIAL BLOOD HCO3 31.3 mmol/L (20-26); ARTERIAL BLOOD O2 SATURATION 99.1 % (94-98); ARTERIAL BLOOD PCO2 59.2 mmHg (35-45); ARTERIAL BLOOD PH 7.34 (7.35-7.45); ARTERIAL BLOOD PO2 178.9 mmHg (80-100); ARTERIAL BLOOD TOTAL CO2 33.1 mmol/L (21-25)
[2018-01-19 08:58] LABS: ARTERIAL BLOOD FIO2 40%
[2018-01-19] MEDS ORDERED: LANSOPRAZOLE 30 MG TAB.RAP.DR PO ONE (09:00)
[2018-01-19] MEDS ORDERED: LANSOPRAZOLE 15 MG TAB.RAP.DR PO SCH (10:00)
[2018-01-19] MEDS ORDERED: NORMAL SALINE 250 ML IV ONE (10:15)
[2018-01-19] MEDS: INSULIN LISPRO 100 UNIT/ML 3 ML VIAL SUBCUT PRN ×3 (11:53→22:18)
[2018-01-19 13:24] LABS: ABSOLUTE EOSINOPHILS # (AUTO) 0.2 10^3/uL (0.0-0.6); ABSOLUTE LYMPHOCYTES (AUTO) 1.5 10^3/uL (0.5-4.7); ABSOLUTE MONOCYTES (AUTO) 0.5 10^3/uL (0.1-1.4); ABSOLUTE NEUT (AUTO) 5.1 10^3/uL (1.7-8.2); BASOPHILS % (AUTO) 0.5 % (0-2); EOSINOPHILS % (AUTO) 2.4 % (0-6); HEMATOCRIT 21.4 % (36.0-47.0); LYMPHOCYTES % (AUTO) 20.5 % (13-45); MEAN CORPUSCULAR HEMOGLOBIN 28.3 pg (27.0-33.4); MEAN CORPUSCULAR HGB CONC 34.1 g/dL (32.0-36.0); MEAN CORPUSCULAR VOLUME 83 fl (80-97); MONOCYTES % (AUTO) 7.3 % (3-13); PLATELET COUNT 249 10^3/uL (150-450); RED BLOOD COUNT 2.58 10^6/uL (3.72-5.28); RED CELL DISTRIBUTION WIDTH 16.6 % (11.5-14.0); SEGMENTED NEUTROPHILS % (AUTO) 69.3 % (42-78); TOTAL CELLS COUNTED % (AUTO) 100 %; WHITE BLOOD COUNT 7.3 10^3/uL (4.0-10.5)
[2018-01-19 13:31] LABS: HEMOGLOBIN 7.3 g/dL (12.0-15.5)
[2018-01-19] MEDS ORDERED: OXYCODONE HCL IR 5 MG TABLET PO PRN (13:55)
[2018-01-19] MEDS: OXYCODONE-ACETAMINOPHEN 5-325 MG TABLET PO PRN ×2 (14:02→21:38)
[2018-01-19] MEDS ORDERED: DOCUSATE SODIUM 100 MG CAPSULE PO PRN (14:10)
[2018-01-19] MEDS ORDERED: (PENDING PHARMACY ID) (Naloxegol Oxalate 25 MG) PO SCH (16:00)
[2018-01-19] MEDS: NORMAL SALINE 1000 ML 1,000 ML IV PRN (16:58)
--- NOTE | 2018-01-19 17:25 | PDOC H&P ---
History of Present Illness Admission Date/PCP: 01/19/18 03:43 JASSON VINI Patient complains of: Not feeling well History of Present Illness: SANTOS NAVARRO is a 57 year old female who presented to the ED with complain of recurrent falls at home and uncontrollable tremor. Patient reported associated pain in her buttocks. She denied loss of consciousness or any further injury beyond her left distal humeral fracture that happened about 1 month ago. She was recently discharged from this facility following episodes of significant lower gastrointestinal bleeding that was related to hemorrhoid. Patient reported persistent intermittent rectal bleeding with bowel movement since discharge. She denied any significant constipation or hard stool. She reported associated right lower abdominal pain. No nausea or vomiting. She reported worsening weakness and fatigue over last one week. Her initial ED evaluation was remarkable for hypotension, tachycardia, worsening renal indices, and anemia. She was advised hospitalization due to her severe symptomatic anemia and acute kidney injury. Her extensive morbidities include Diabetes Mellitus Type 2, chronic systolic congestive heart failure, Coronary Artery Disease with old Myocardial infarction s/p two stent angioplasty, Hypertension, Hyperlipidemia, Peripheral Vascular Disease, COPD on supplemental oxygen at 2L/ min via nasal cannula, Asthma, Migraine, Hypothyroidism, Stage IV Chronic Kidney Disease, Gastroesophageal Reflux Disease, Osteoarthritis, left distal humeral fracture, Bipolar Disorder with anxiety and depression, chronic schizophrenia, and Post Traumatic Stress Disorder. Past Medical History Cardiac Medical History: Reports: Congestive Heart Failure, Coronary Artery Disease, Myocardial Infarction - 2 STENTS, Hyperlipidema, Hypertension, Peripheral Vascular Disease Denies: Heart Murmur Pulmonary Medical History: Reports: Asthma, Bronchitis, Chronic Obstructive Pulmonary Disease (COPD) - WEARS 2 LNC 24HRS/DAY, Sleep Apnea Denies: Pneumonia, Respiratory Failure, Tuberculosis Neurological Medical History: Reports: Migraine Denies: Seizures Endocrine Medical History: Reports: Diabetes Mellitus Type 2, Hyperthyroidism, Hypothyroidism Renal/ Medical History: Reports: End Stage Renal Disease - Stage IV, no dialysis yet Malignancy Medical History: GI Medical History: Reports: Gastroesophageal Reflux Disease Musculoskeltal Medical History: Reports: Fibromyalgia Denies: Arthritis Psychiatric Medical History: Reports: Bipolar Disorder, Depression, Post Traumatic Stress Disorder Hematology: Denies: Anemia, Hemophilia, Sickle Cell Disease, Bleeding Tendencies Infectious Medical History: Past Surgical History Past Surgical History: Reports: Cardiac Catheterization, Section - x2, Coronary Artery Bypass Graft, Coronary Stent - x2, Hysterectomy, Orthopedic Surgery, Tubal Ligation Denies: Amputation Social History Smoking Status: Never Smoker Frequency of Alcohol Use: None Hx Recreational Drug Use: No Drugs: None Hx Prescription Drug Abuse: No - Advance Directive Resuscitation Status: Full Code Family History Family History: None Parental Family History Reviewed: Yes Children Family History Reviewed: Yes Sibling(s) Family History Reviewed.: Yes Medication/Allergy Home Medications: Albuterol Sulfate [Proair HFA Inhalation Aerosol 8.5 gm MDI] 2 puff IH Q4HP PRN 01/10/18 Amitriptyline HCl [Elavil 150 mg Tablet] 150 mg PO DAILY 01/10/18 Aripiprazole [Abilify 30 mg Tablet] 15 mg PO BID 01/10/18 Benztropine Mesylate [Cogentin 1 mg Tablet] 1 mg PO BID 01/10/18 Budesonide/Formoterol Fumarate [Symbicort HFA 160-4.5 mcg Inhaler 6 gm] 2 puff IH BID 01/10/18 Bupropion HCl [Wellbutrin Sr 150 mg Tablet] 150 mg PO QPM 01/10/18 Diclofenac Sodium [Voltaren] 1 applic TOP TIDP PRN 01/10/18 Docusate Sodium [Colace 100 mg Capsule] 100 mg PO BIDP PRN 01/10/18 Duloxetine HCl [Cymbalta] 60 mg PO BID 01/10/18 Furosemide [Lasix 40 mg Tablet] 40 mg PO BID 01/10/18 Gabapentin [Neurontin 300 mg Capsule] 300 mg PO Q8 01/10/18 Insulin Glargine,Hum.rec.anlog [Lantus Solostar] 55 units SQ QAM 01/10/18 Insulin Glargine,Hum.rec.anlog [Lantus Solostar] 65 units SQ QHS 01/10/18 Insulin Lispro [Humalog Kwikpen U-100] 0 units SQ .PERSLIDINGSCALE 01/10/18 Lactulose [Constulose 10 gm/15 mL Oral Solution] 15 ml PO DAILYP PRN 01/10/18 Lactulose [Kristalose 10 gm Packet] 30 gm PO DAILY 01/10/18 Levothyroxine Sodium [Synthroid] 50 mcg PO Q6AM 01/10/18 Liraglutide [Victoza 2-Armando] 1.8 mg SQ DAILY 01/10/18 Magnesium Oxide [Mag-Ox 400 mg Tablet] 400 mg PO BID 01/10/18 Methocarbamol [Robaxin 500 mg Tablet] 500 mg PO TIDP PRN 01/10/18 Naloxegol Oxalate [Movantik 25 mg Tablet] 25 mg PO QAM 01/10/18 Nitroglycerin [Nitro-Dur 5 mg (0.2 mg/Hr) Transdermal Patch] 0.2 mg TD DAILY Omeprazole 40 mg PO Q12 01/10/18 Oxycodone HCl/Acetaminophen [Percocet 10-325 mg Tablet] 1 tab PO Q8HP PRN Saxagliptin HCl [Onglyza] 2.5 mg PO DAILY 01/10/18 Silver Sulfadiazine [Ssd] 1 applic TOP BID 01/10/18 Simvastatin [Zocor 20 mg Tablet] 20 mg PO WSUPPER 01/10/18 Trazodone HCl [Desyrel] 300 mg PO QHS 01/10/18 Valsartan [Diovan 160 mg Tablet] 160 mg PO DAILY 01/10/18 Allergies/Adverse Reactions: cephalexin monohydrate [From Keflex] Allergy (Unknown, Verified 12/24/17 17:38) codeine [Codeine] Allergy (Unknown, Verified 12/24/17 17:38) dicyclomine HCl [From Bentyl] Allergy (Unknown, Verified 12/24/17 17:38) hydrocodone bitartrate [From Vicodin] Allergy (Unknown, Verified 12/24/17 17:38) meloxicam [From Mobic] Allergy (Unknown, Verified 12/24/17 17:38) meperidine HCl [From Demerol (PF)] Allergy (Unknown, Verified 12/24/17 17:38) morphine [Morphine] Allergy (Unknown, Verified 12/24/17 17:38) naproxen sodium [From Naprelan CR Dosepak] Allergy (Unknown, Verified 12/24/17 17:38) nitrofurantoin [From Macrobid] Allergy (Unknown, Verified 12/24/17 17:38) pantoprazole sodium [From Protonix] Allergy (Unknown, Verified 12/24/17 17:38) Penicillins Allergy (Unknown, Verified 12/24/17 17:38) Sulfa (Sulfonamide Antibiotics) Allergy (Unknown, Verified 12/24/17 17:38) lamotrigine [From Lamictal] Allergy (Verified 12/24/17 17:38) rash Review of Systems Constitutional: PRESENT: fatigue, weakness. ABSENT: as per HPI, anorexia, chills, fever(s), headache(s), night sweats, weight gain, weight loss, other Eyes: ABSENT: visual disturbances Ears: PRESENT: hearing changes Nose, Mouth, and Throat: ABSENT: as per HPI, headache(s), mouth pain, sore throat, vertigo, other Cardiovascular: PRESENT: dyspnea on exertion. ABSENT: as per HPI, chest pain, edema, orthropnea, palpitations, other Respiratory: ABSENT: cough, hemoptysis Gastrointestinal: PRESENT: abdominal pain, hematochezia - with bowel movement. ABSENT: as per HPI, bloating, coffee ground emesis, constipation, diarrhea, dysphagia, heartburn, hematemesis, melena, nausea, vomiting, other Genitourinary: ABSENT: dysuria, hematuria Musculoskeletal: PRESENT: back pain - longstanding, deformity - from recent left upper extremity fracture with casting in use, muscle weakness Integumentary: ABSENT: rash, wounds Neurological: PRESENT: abnormal gait - ambulate with cane assistance, frequent falls, tremor(s), weakness - generalized Endocrine: ABSENT: cold intolerance, heat intolerance, polydipsia, polyuria Hematologic/Lymphatic: ABSENT: easy bleeding, easy bruising, lymphadenopathy Allergic/Immunologic: ABSENT: seasonal rhinorrhea Physical Exam Vital Signs: Temp Pulse Resp BP Pulse Ox 96.8 F L 95 11 L 129/63 H 98 01/19/18 07:11 01/19/18 07:11 01/19/18 07:11 01/19/18 07:11 01/19/18 07:11 Intake & Output 01/18/18 01/19/18 01/20/18 06:59 06:59 06:59 Intake Total 0 350 Balance 0 350 General appearance: PRESENT: mild distress - in need of BiPAP support due to desaturation, morbidly obese Head exam: PRESENT: atraumatic, normocephalic Eye exam: PRESENT: conjunctiva pink, EOMI, PERRLA. ABSENT: scleral icterus Ear exam: PRESENT: normal external ear exam Mouth exam: PRESENT: moist, tongue midline Teeth exam: PRESENT: poor dentation Throat exam: ABSENT: post pharyngeal erythema, tonsillar erythema, tonsillar exudate, tonsillogmegaly, other Neck exam: PRESENT: full ROM. ABSENT: carotid bruit, JVD, lymphadenopathy, thyromegaly Respiratory exam: PRESENT: decreased breath sounds Cardiovascular exam: PRESENT: RRR. ABSENT: diastolic murmur, rubs, systolic murmur Pulses: PRESENT: +1 pedal pulses bilateral Vascular exam: PRESENT: normal capillary refill. ABSENT: pallor GI/Abdominal exam: PRESENT: normal bowel sounds, soft, tenderness - RRQ. ABSENT : ascites, mass, organolmegaly, rebound, rigid Rectal exam: PRESENT: deferred Gentrourinary exam: PRESENT: indwelling catheter Extremities exam: PRESENT: pedal edema - much improved comparative edema Musculoskeletal exam: PRESENT: deformity - left distal humeral fracture with cast Neurological exam: PRESENT: alert, awake, oriented to person, oriented to place , oriented to time, oriented to situation, CN II-XII grossly intact. ABSENT: motor sensory deficit Psychiatric exam: PRESENT: appropriate affect, normal mood. ABSENT: homicidal ideation, suicidal ideation Skin exam: PRESENT: dry, warm. ABSENT: cyanosis, rash Results Laboratory Results: I reviewed her laboratory results on [employer] and form a significant part of my medical decision making. 01/19/18 01/19/18 01/19/18 03:55 03:55 03:55 VBG pH 7.30 VBG pCO2 57.7 VBG HCO3 28.0 VBG Base Excess 0.9 Lactic Acid 0.7 Blood Type O POSITIVE Antibody Screen NEGATIVE Impressions: Sacrum and Coccyx X-Ray 01/18/18 23:12 IMPRESSION: No acute abnormality. Lumbar Spine X-Ray 01/18/18 23:13 IMPRESSION: Degenerative changes with no acute abnormality. Assessment & Plan - Diagnosis (1) Anemia associated with acute blood loss Is this a current diagnosis for this admission?: Yes Plan: See admitting attending physician orders. (2) Symptomatic anemia Is this a current diagnosis for this admission?: Yes Plan: See admitting attending physician orders. (3) Internal hemorrhoid, bleeding Is this a current diagnosis for this admission?: Yes Plan: See admitting attending physician orders. (4) External hemorrhoids with complication Is this a current diagnosis for this admission?: Yes Plan: See admitting attending physician orders. (5) Acute renal failure Qualifiers: Acute renal failure type: unspecified Qualified Code(s): N17.9 - Acute kidney failure, unspecified Is this a current diagnosis for this admission?: Yes Plan: See admitting attending physician orders. (6) Hyperkalemia Is this a current diagnosis for this admission?: Yes Plan: See admitting attending physician orders. (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 Is this a current diagnosis for this admission?: Yes Plan: See admitting attending physician orders. (8) HTN (hypertension) Qualifiers: Hypertension type: essential hypertension Qualified Code(s): I10 - Essential (primary) hypertension Is this a current diagnosis for this admission?: Yes Plan: See admitting attending physician orders. (9) Coronary artery disease without angina pectoris Qualifiers: Coronary Disease-Associated Artery/Lesion type: [place] artery [place] vs. transplanted heart: [place] heart Qualified Code(s): I25.10 - Atherosclerotic heart disease of [place] coronary artery without angina pectoris Is this a current diagnosis for this admission?: Yes Plan: See admitting attending physician orders. (10) Hx of coronary angioplasty Is this a current diagnosis for this admission?: Yes Plan: See admitting attending physician orders. (11) COPD mixed type Is this a current diagnosis for this admission?: Yes Plan: See admitting attending physician orders. (12) Fracture of humerus, left, closed Qualifiers: Encounter type: subsequent encounter Humerus Location: distal Fracture morphology: other fracture Fracture alignment: displaced Qualified Code(s): S42.492A - Other displaced fracture of lower end of left humerus, initial encounter for closed fracture Is this a current diagnosis for this admission?: Yes Plan: See admitting attending physician orders. (13) Osteoarthritis Qualifiers: Osteoarthritis location: unspecified site Osteoarthritis type: unspecified Qualified Code(s): M19.90 - Unspecified osteoarthritis, unspecified site Is this a current diagnosis for this admission?: Yes Plan: See admitting attending physician orders. (14) Chronic pain syndrome Is this a current diagnosis for this admission?: Yes Plan: See admitting attending physician orders. (15) Bipolar 1 disorder, depressed Is this a current diagnosis for this admission?: Yes (16) Chronic schizoaffective disorder Is this a current diagnosis for this admission?: Yes Plan: See admitting attending physician orders. (17) PTSD (post-traumatic stress disorder) Plan: See admitting attending physician orders. - Time Time Spent: 50 to 70 Minutes Medications reviewed and adjusted accordingly: Yes Anticipated discharge: Home with Homehealth Within: Other - Inpatient Certification Based on my medical assessment, after consideration of the patient's comorbidities, presenting symptoms, or acuity I expect that the services needed warrant INPATIENT care.: Yes I certify that my determination is in accordance with my understanding of Medicare's requirements for reasonable and necessary INPATIENT services [42 CFR 412.3e].: Yes Medical Necessity: Need Close Monitoring Due to Risk of Patient Decompensation, Need For IV Fluids, Need For Continuous Telemetry Monitoring, Need for Nebulizer Therapy and Monitoring of Response, Need for Pain Control, Need for IV Antibiotics, Risk of Complication if Not Cared For in Hospital Post Hospital Care: D/C Supervisor/Port Director Documentation - Plan Summary Plan Summary: See admitting attending physician orders.
[2018-01-19] MEDS ORDERED: (PENDING PHARMACY ID) (Aripiprazole [Abilify 30 Mg Tablet] 15 MG) PO SCH (18:00)
[2018-01-19] MEDS ORDERED: (PENDING PHARMACY ID) (Bupropion Hcl [Wellbutrin Sr 150 Mg Tablet] 150 MG) PO SCH (18:00)
[2018-01-19] MEDS: SILVER SULFADIAZINE 1% CREAM 50 GM TOP SCH (18:06)
[2018-01-19] MEDS: SIMVASTATIN 10 MG TABLET PO SCH (18:08)
[2018-01-19] MEDS: MAGNESIUM OXIDE 400 MG TABLET PO SCH (18:09)
[2018-01-19] MEDS: TRAZODONE HCL 50 MG TABLET PO SCH (21:36)
[2018-01-19] MEDS: ARIPIPRAZOLE 5 MG TABLET PO SCH (21:37)
[2018-01-19] MEDS: DULOXETINE HCL 30 MG CAPSULE.DR PO SCH (21:37)
[2018-01-19] MEDS: GABAPENTIN 300 MG CAPSULE PO SCH (21:37)
[2018-01-19] MEDS: BENZTROPINE MESYLATE 1 MG TABLET PO SCH (21:38)
[2018-01-19] MEDS: BUPROPION HCL 100 MG TABLET PO SCH (21:38)
[2018-01-19] MEDS: BUDESONIDE/FORMOTEROL 160-4.5 MCG 60 PUFF/6 GM MDI IH SCH (21:39)
[2018-01-19 21:41] LABS: ABSOLUTE EOSINOPHILS # (AUTO) 0.2 10^3/uL (0.0-0.6); ABSOLUTE LYMPHOCYTES (AUTO) 1.7 10^3/uL (0.5-4.7); ABSOLUTE MONOCYTES (AUTO) 0.6 10^3/uL (0.1-1.4); ABSOLUTE NEUT (AUTO) 4.9 10^3/uL (1.7-8.2); BASOPHILS % (AUTO) 0.5 % (0-2); EOSINOPHILS % (AUTO) 2.9 % (0-6); HEMATOCRIT 27.2 % (36.0-47.0); HEMOGLOBIN 9.2 g/dL (12.0-15.5); MEAN CORPUSCULAR HEMOGLOBIN 28.5 pg (27.0-33.4); MEAN CORPUSCULAR HGB CONC 33.9 g/dL (32.0-36.0); MEAN CORPUSCULAR VOLUME 84 fl (80-97); MONOCYTES % (AUTO) 7.9 % (3-13); PLATELET COUNT 264 10^3/uL (150-450); RED BLOOD COUNT 3.23 10^6/uL (3.72-5.28); SEGMENTED NEUTROPHILS % (AUTO) 65.7 % (42-78); TOTAL CELLS COUNTED % (AUTO) 100 %; WHITE BLOOD COUNT 7.4 10^3/uL (4.0-10.5)
[2018-01-19] MEDS ORDERED: (PENDING PHARMACY ID) (Trazodone Hcl [Desyrel] 300 MG) PO SCH (22:00)
[2018-01-20] MEDS: NORMAL SALINE 1000 ML 1,000 ML IV PRN ×2 (03:06→11:40)
[2018-01-20] MEDS: GABAPENTIN 300 MG CAPSULE PO SCH ×3 (06:10→22:43)
[2018-01-20] MEDS: BUPROPION HCL 100 MG TABLET PO SCH ×3 (06:10→22:43)
[2018-01-20] MEDS: LEVOTHYROXINE SODIUM 0.05 MG TABLET PO SCH (06:10)
[2018-01-20] MEDS: LANSOPRAZOLE 30 MG TAB.RAP.DR PO SCH (06:11)
[2018-01-20] MEDS ORDERED: (PENDING PHARMACY ID) (Naloxegol Oxalate 25 MG) PO SCH (08:00)
[2018-01-20] MEDS: OXYCODONE-ACETAMINOPHEN 5-325 MG TABLET PO PRN ×2 (08:46→13:53)
[2018-01-20] MEDS: NITROGLYCERIN 5 MG (0.2 MG/HR) PATCH.TD24 TD SCH (09:15)
[2018-01-20] MEDS: ARIPIPRAZOLE 5 MG TABLET PO SCH ×2 (09:21→22:48)
[2018-01-20] MEDS: DULOXETINE HCL 30 MG CAPSULE.DR PO SCH ×2 (09:22→22:44)
[2018-01-20] MEDS: MAGNESIUM OXIDE 400 MG TABLET PO SCH ×2 (09:22→18:41)
[2018-01-20] MEDS: BUDESONIDE/FORMOTEROL 160-4.5 MCG 60 PUFF/6 GM MDI IH SCH ×2 (09:23→22:45)
[2018-01-20] MEDS: BENZTROPINE MESYLATE 1 MG TABLET PO SCH ×2 (09:23→22:43)
[2018-01-20] MEDS: AMITRIPTYLINE HCL 75 MG TABLET PO SCH (09:24)
[2018-01-20] MEDS: LACTULOSE SYRUP 20 GM/30 ML UDCUP PO SCH (09:24)
[2018-01-20] MEDS: SILVER SULFADIAZINE 1% CREAM 50 GM TOP SCH ×2 (09:33→18:42)
[2018-01-20] MEDS: VALSARTAN 160 MG TABLET PO SCH (09:33)
[2018-01-20] MEDS ORDERED: AMITRIPTYLINE HCL 150 MG PO SCH (10:00)
[2018-01-20] MEDS ORDERED: NITROGLYCERIN 5 MG (0.2 MG/HR) PATCH.TD24 TD SCH (10:00)
[2018-01-20] MEDS ORDERED: LACTULOSE 30 GM PO SCH (10:00)
--- NOTE | 2018-01-20 10:42 | PDOC PROGRESS REPORT ---
Subjective Progress Note for:: 01/20/18 Subjective:: No chest pain or difficulty with breathing. Intermittent use of BiPAP machine support. No fever or chills. No recurrent rectal bleeding. Reason For Visit: SYMPTOMATIC ANEMIA ACUTE RENAL FAILURE, Physical Exam Vital Signs: Temp Pulse Resp BP Pulse Ox 97.5 F 85 16 135/70 H 97 01/20/18 08:00 01/20/18 08:00 01/20/18 10:00 01/20/18 09:23 01/20/18 10:00 Intake & Output 01/19/18 01/20/18 01/21/18 06:59 06:59 06:59 Intake Total 0 4783 120 Output Total 3740 250 Balance 0 1043 -130 Weight 153.4 kg General appearance: PRESENT: morbidly obese Head exam: PRESENT: atraumatic, normocephalic Mouth exam: PRESENT: moist Teeth exam: PRESENT: poor dentation Respiratory exam: PRESENT: clear to auscultation christine Cardiovascular exam: PRESENT: RRR. ABSENT: diastolic murmur, rubs, systolic murmur GI/Abdominal exam: PRESENT: normal bowel sounds, soft. ABSENT: distended, guarding, mass, organolmegaly, rebound, tenderness Gentrourinary exam: PRESENT: indwelling catheter Extremities exam: PRESENT: pedal edema - very minimal pitting edema Musculoskeletal exam: PRESENT: deformity - due to recent left closed distal humerus fracture in cast Neurological exam: PRESENT: alert, awake, oriented to person, oriented to place , oriented to time, oriented to situation, CN II-XII grossly intact. ABSENT: motor sensory deficit Skin exam: PRESENT: dry, intact, warm. ABSENT: cyanosis, rash Results Laboratory Results: 01/19/18 21:15 01/19/18 01/19/18 01/19/18 03:55 12:50 21:15 WBC 7.3 7.4 RBC 2.58 L 3.23 L Hgb 7.3 L 9.2 L Hct 21.4 L 27.2 L MCV 83 84 MCH 28.3 28.5 MCHC 34.1 33.9 RDW 16.6 H 16.0 H Plt Count 249 264 Seg Neutrophils % 69.3 65.7 Lymphocytes % 20.5 23.0 Monocytes % 7.3 7.9 Eosinophils % 2.4 2.9 Basophils % 0.5 0.5 Absolute Neutrophils 5.1 4.9 Absolute Lymphocytes 1.5 1.7 Absolute Monocytes 0.5 0.6 Absolute Eosinophils 0.2 0.2 Absolute Basophils 0.0 0.0 Blood Type O POSITIVE Antibody Screen NEGATIVE Impressions: Sacrum and Coccyx X-Ray 01/18/18 23:12 IMPRESSION: No acute abnormality. Lumbar Spine X-Ray 01/18/18 23:13 IMPRESSION: Degenerative changes with no acute abnormality. Assessment & Plan - Diagnosis (1) Anemia associated with acute blood loss Is this a current diagnosis for this admission?: Yes Plan: Continue current medical management. Follow up on GI consultation request. (2) Symptomatic anemia Is this a current diagnosis for this admission?: Yes Plan: Continue current medical management. Follow up on GI consultation request. (3) Internal hemorrhoid, bleeding Is this a current diagnosis for this admission?: Yes Plan: Continue current medical management. Follow up on GI consultation request. (4) External hemorrhoids with complication Is this a current diagnosis for this admission?: Yes Plan: Continue current medical management. Follow up on GI consultation request. (5) Acute renal failure Qualifiers: Acute renal failure type: unspecified Qualified Code(s): N17.9 - Acute kidney failure, unspecified Is this a current diagnosis for this admission?: Yes Plan: Continue current management. Follow up on repeat BMP. (6) Hyperkalemia Is this a current diagnosis for this admission?: Yes Plan: Continue current management. Follow up on repeat BMP. (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 Is this a current diagnosis for this admission?: Yes Plan: Continue current medication management. (8) HTN (hypertension) Qualifiers: Hypertension type: essential hypertension Qualified Code(s): I10 - Essential (primary) hypertension Is this a current diagnosis for this admission?: Yes Plan: Continue current medication management. (9) Coronary artery disease without angina pectoris Qualifiers: Coronary Disease-Associated Artery/Lesion type: [place] artery [place] vs. transplanted heart: [place] heart Qualified Code(s): I25.10 - Atherosclerotic heart disease of [place] coronary artery without angina pectoris Is this a current diagnosis for this admission?: Yes Plan: Continue current medication management. (10) Hx of coronary angioplasty Is this a current diagnosis for this admission?: Yes Plan: Continue current medication management. (11) COPD mixed type Is this a current diagnosis for this admission?: Yes Plan: Continue current medication management. (12) Fracture of humerus, left, closed Qualifiers: Encounter type: subsequent encounter Humerus Location: distal Fracture morphology: other fracture Fracture alignment: displaced Is this a current diagnosis for this admission?: Yes Plan: Continue current management. (13) Osteoarthritis Qualifiers: Osteoarthritis location: unspecified site Osteoarthritis type: unspecified Qualified Code(s): M19.90 - Unspecified osteoarthritis, unspecified site Is this a current diagnosis for this admission?: Yes Plan: Continue current medication management. (14) Chronic pain syndrome Is this a current diagnosis for this admission?: Yes Plan: Continue current medication management. (15) Bipolar 1 disorder, depressed Is this a current diagnosis for this admission?: Yes Plan: Continue current medication management. (16) Chronic schizoaffective disorder Is this a current diagnosis for this admission?: Yes Plan: Continue current medication management. (17) PTSD (post-traumatic stress disorder) Is this a current diagnosis for this admission?: Yes Plan: Continue current medication management. (18) UTI (urinary tract infection), bacterial Is this a current diagnosis for this admission?: Yes Plan: Start on IV Rocephin coverage. Follow up on urine culture findings.l - Time Time Spent with patient: 25-34 minutes Medications reviewed and adjusted accordingly: Yes Anticipated discharge: Home with Homehealth Within: Other - Inpatient Certification Based on my medical assessment, after consideration of the patient's comorbidities, presenting symptoms, or acuity I expect that the services needed warrant INPATIENT care.: Yes I certify that my determination is in accordance with my understanding of Medicare's requirements for reasonable and necessary INPATIENT services [42 CFR 412.3e].: Yes Medical Necessity: Need Close Monitoring Due to Risk of Patient Decompensation, Need For IV Fluids, Need For Continuous Telemetry Monitoring, Need for Nebulizer Therapy and Monitoring of Response, Risk of Complication if Not Cared For in Hospital Post Hospital Care: D/C [employer] Documentation - Plan Summary Plan Summary: Continue current medication management. Follow up on pending lab results.
[2018-01-20 11:00] LABS: ABSOLUTE EOSINOPHILS # (AUTO) 0.2 10^3/uL (0.0-0.6); ABSOLUTE LYMPHOCYTES (AUTO) 1.5 10^3/uL (0.5-4.7); ABSOLUTE MONOCYTES (AUTO) 0.6 10^3/uL (0.1-1.4); ABSOLUTE NEUT (AUTO) 4.5 10^3/uL (1.7-8.2); BASOPHILS % (AUTO) 0.5 % (0-2); EOSINOPHILS % (AUTO) 2.4 % (0-6); HEMATOCRIT 25.3 % (36.0-47.0); HEMOGLOBIN 8.5 g/dL (12.0-15.5); LYMPHOCYTES % (AUTO) 22.5 % (13-45); MEAN CORPUSCULAR HEMOGLOBIN 28.3 pg (27.0-33.4); MEAN CORPUSCULAR HGB CONC 33.5 g/dL (32.0-36.0); MEAN CORPUSCULAR VOLUME 84 fl (80-97); MONOCYTES % (AUTO) 8.3 % (3-13); PLATELET COUNT 240 10^3/uL (150-450); RED BLOOD COUNT 2.99 10^6/uL (3.72-5.28); RED CELL DISTRIBUTION WIDTH 16.1 % (11.5-14.0); SEGMENTED NEUTROPHILS % (AUTO) 66.3 % (42-78); TOTAL CELLS COUNTED % (AUTO) 100 %; WHITE BLOOD COUNT 6.8 10^3/uL (4.0-10.5)
[2018-01-20] MEDS ORDERED: CEFTRIAXONE 1 GM/D5W RTU 1 GM/50 ML RTUPB IV SCH (11:00)
[2018-01-20 11:20] LABS: ALANINE AMINOTRANSFERASE 22 U/L (9-52); ALKALINE PHOSPHATASE 150 U/L (38-126); ANION GAP 11 (5-19); ASPARTATE AMINO TRANSFERASE 15 U/L (14-36); BILIRUBIN,DIRECT 0.3 mg/dL (0.0-0.4); BILIRUBIN,TOTAL 0.3 mg/dL (0.2-1.3); BLOOD UREA NITROGEN 29 mg/dL (7-20); CALCIUM 8.8 mg/dL (8.4-10.2); CARBON DIOXIDE 29 mmol/L (22-30); CHLORIDE 103 mmol/L (98-107); GLUCOSE 165 mg/dL (75-110); POTASSIUM 4.8 mmol/L (3.6-5.0); SODIUM 142.5 mmol/L (137-145); TOTAL PROTEIN 6.2 g/dL (6.3-8.2)
[2018-01-20] MEDS ORDERED: CEFTRIAXONE SODIUM 1,000 MG in DEXTROSE 5%-WATER 50 ML IV SCH (12:00)
[2018-01-20] MEDS ORDERED: INSULIN LISPRO 100 UNIT/ML 3 ML VIAL SUBCUT PRN (18:16)
[2018-01-20] MEDS: SIMVASTATIN 10 MG TABLET PO SCH (18:40)
[2018-01-20] MEDS: INSULIN LISPRO 100 UNIT/ML 3 ML VIAL SUBCUT PRN (19:16)
[2018-01-20] MEDS ORDERED: ONDANSETRON HCL INJ/PF 4 MG/2 ML SDV ONE (22:01)
[2018-01-20] MEDS: ONDANSETRON HCL INJ/PF 4 MG/2 ML SDV IV PRN (22:18)
[2018-01-20] MEDS: TRAZODONE HCL 50 MG TABLET PO SCH (22:43)
[2018-01-21] MEDS: NORMAL SALINE 1000 ML 1,000 ML IV PRN ×3 (01:29→22:36)
[2018-01-21] MEDS: LANSOPRAZOLE 30 MG TAB.RAP.DR PO SCH (05:15)
[2018-01-21] MEDS: BUPROPION HCL 100 MG TABLET PO SCH ×2 (05:15→14:15)
[2018-01-21] MEDS: LEVOTHYROXINE SODIUM 0.05 MG TABLET PO SCH (05:15)
[2018-01-21] MEDS: GABAPENTIN 300 MG CAPSULE PO SCH ×2 (05:15→14:15)
[2018-01-21 08:04] LABS: PROTHROMBIN TIME 13.7 SEC (11.4-15.4)
[2018-01-21 08:09] LABS: ABSOLUTE EOSINOPHILS # (AUTO) 0.1 10^3/uL (0.0-0.6); ABSOLUTE LYMPHOCYTES (AUTO) 1.3 10^3/uL (0.5-4.7); ABSOLUTE MONOCYTES (AUTO) 0.5 10^3/uL (0.1-1.4); ABSOLUTE NEUT (AUTO) 5.2 10^3/uL (1.7-8.2); BASOPHILS % (AUTO) 0.6 % (0-2); HEMATOCRIT 24.7 % (36.0-47.0); HEMOGLOBIN 8.4 g/dL (12.0-15.5); LYMPHOCYTES % (AUTO) 17.8 % (13-45); MEAN CORPUSCULAR HEMOGLOBIN 28.6 pg (27.0-33.4); MEAN CORPUSCULAR HGB CONC 33.9 g/dL (32.0-36.0); MEAN CORPUSCULAR VOLUME 84 fl (80-97); MONOCYTES % (AUTO) 7.5 % (3-13); PLATELET COUNT 233 10^3/uL (150-450); RED BLOOD COUNT 2.92 10^6/uL (3.72-5.28); RED CELL DISTRIBUTION WIDTH 16.2 % (11.5-14.0); SEGMENTED NEUTROPHILS % (AUTO) 72.1 % (42-78); TOTAL CELLS COUNTED % (AUTO) 100 %; WHITE BLOOD COUNT 7.2 10^3/uL (4.0-10.5)
[2018-01-21 08:20] LABS: ALANINE AMINOTRANSFERASE 22 U/L (9-52); ALBUMIN 3.1 g/dL (3.5-5.0); ALKALINE PHOSPHATASE 162 U/L (38-126); ANION GAP 11 (5-19); ASPARTATE AMINO TRANSFERASE 25 U/L (14-36); BILIRUBIN,DIRECT 0.3 mg/dL (0.0-0.4); BILIRUBIN,TOTAL 0.3 mg/dL (0.2-1.3); BLOOD UREA NITROGEN 20 mg/dL (7-20); CALCIUM 8.7 mg/dL (8.4-10.2); CARBON DIOXIDE 30 mmol/L (22-30); CHLORIDE 101 mmol/L (98-107); GLUCOSE 140 mg/dL (75-110); POTASSIUM 4.5 mmol/L (3.6-5.0); SODIUM 142.3 mmol/L (137-145); TOTAL PROTEIN 6.4 g/dL (6.3-8.2)
[2018-01-21] MEDS ORDERED: PROCHLORPERAZINE MALEATE 25 MG SUPP.RECT PR PRN (09:00)
[2018-01-21] MEDS: NITROGLYCERIN 5 MG (0.2 MG/HR) PATCH.TD24 TD SCH (09:56)
[2018-01-21] MEDS: BUDESONIDE/FORMOTEROL 160-4.5 MCG 60 PUFF/6 GM MDI IH SCH ×2 (09:57→21:02)
[2018-01-21] MEDS: DULOXETINE HCL 30 MG CAPSULE.DR PO SCH (09:59)
[2018-01-21] MEDS: SILVER SULFADIAZINE 1% CREAM 50 GM TOP SCH ×2 (09:59→18:23)
[2018-01-21] MEDS: ARIPIPRAZOLE 5 MG TABLET PO SCH (09:59)
[2018-01-21] MEDS: VALSARTAN 160 MG TABLET PO SCH (09:59)
[2018-01-21] MEDS: LACTULOSE SYRUP 20 GM/30 ML UDCUP PO SCH (09:59)
[2018-01-21] MEDS: MAGNESIUM OXIDE 400 MG TABLET PO SCH ×2 (09:59→18:23)
[2018-01-21] MEDS: AMITRIPTYLINE HCL 75 MG TABLET PO SCH (09:59)
[2018-01-21] MEDS: BENZTROPINE MESYLATE 1 MG TABLET PO SCH (09:59)
--- NOTE | 2018-01-21 17:35 | PDOC PROGRESS REPORT ---
Subjective Progress Note for:: 01/21/18 Subjective:: Patient had episodes of nausea and vomiting earlier today. She continue to complain of diffused nonspecific abdominal pain. No chest pain or difficulty with breathing. No fever or chills. No recurrent rectal bleeding. She reported constipation in the last 2 weeks as usual for her. Reason For Visit: SYMPTOMATIC ANEMIA ACUTE RENAL FAILURE, Physical Exam Vital Signs: Temp Pulse Resp BP Pulse Ox 98.8 F 94 16 121/66 99 01/21/18 16:00 01/21/18 16:00 01/21/18 16:00 01/21/18 16:00 01/21/18 16:00 Intake & Output 01/20/18 01/21/18 01/22/18 06:59 06:59 06:59 Intake Total 4783 2368 Output Total 3740 3100 600 Balance 1043 -732 -600 Weight 153.4 kg 157 kg Physical Exam: General appearance: PRESENT: morbidly obese Head exam: PRESENT: atraumatic, normocephalic Mouth exam: PRESENT: moist Teeth exam: PRESENT: poor dentation Respiratory exam: PRESENT: clear to auscultation christine Cardiovascular exam: PRESENT: RRR. ABSENT: diastolic murmur, rubs, systolic murmur GI/Abdominal exam: PRESENT: normal bowel sounds, soft. Diffuse nonspecific expressed tenderness to deep palpation in al quadrants and epigastric region. ABSENT: distended, guarding, mass, organomegaly, rebound Gentrourinary exam: PRESENT: indwelling catheter Extremities exam: PRESENT: pedal edema - very minimal pitting edema Musculoskeletal exam: PRESENT: deformity - due to recent left closed distal humerus fracture in cast Neurological exam: PRESENT: alert, awake, oriented to person, oriented to place , oriented to time, oriented to situation, CN II-XII grossly intact. ABSENT: motor sensory deficit Skin exam: PRESENT: dry, intact, warm. ABSENT: cyanosis, rash Results Laboratory Results: 01/21/18 07:45 01/21/18 07:45 01/21/18 01/21/18 07:45 07:45 WBC 7.2 RBC 2.92 L Hgb 8.4 L Hct 24.7 L MCV 84 MCH 28.6 MCHC 33.9 RDW 16.2 H Plt Count 233 Seg Neutrophils % 72.1 Lymphocytes % 17.8 Monocytes % 7.5 Eosinophils % 2.0 Basophils % 0.6 Absolute Neutrophils 5.2 Absolute Lymphocytes 1.3 Absolute Monocytes 0.5 Absolute Eosinophils 0.1 Absolute Basophils 0.0 Sodium 142.3 Potassium 4.5 Chloride 101 Carbon Dioxide 30 Anion Gap 11 BUN 20 Creatinine 1.19 Est GFR ( Amer) 56 L Est GFR (Non-Af Amer) 47 L Glucose 140 H Calcium 8.7 Total Bilirubin 0.3 AST 25 ALT 22 Alkaline Phosphatase 162 H Total Protein 6.4 Albumin 3.1 L 01/19/18 07:20 Catheterized Urine Urine Culture - Final Escherichia Coli Impressions: Sacrum and Coccyx X-Ray 01/18/18 23:12 IMPRESSION: No acute abnormality. Lumbar Spine X-Ray 01/18/18 23:13 IMPRESSION: Degenerative changes with no acute abnormality. Assessment & Plan - Diagnosis (1) Anemia associated with acute blood loss Is this a current diagnosis for this admission?: Yes (2) Symptomatic anemia Is this a current diagnosis for this admission?: Yes (3) Internal hemorrhoid, bleeding Is this a current diagnosis for this admission?: Yes (4) External hemorrhoids with complication Is this a current diagnosis for this admission?: Yes (5) Acute renal failure Qualifiers: Acute renal failure type: unspecified Qualified Code(s): N17.9 - Acute kidney failure, unspecified Is this a current diagnosis for this admission?: Yes (6) Hyperkalemia Is this a current diagnosis for this admission?: Yes (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 transplanted heart: [place] heart Qualified Code(s): I25.10 - Atherosclerotic heart disease of [place] coronary artery without angina pectoris Is this a current diagnosis for this admission?: Yes (10) Hx of coronary angioplasty Is this a current diagnosis for this admission?: Yes (11) COPD mixed type Is this a current diagnosis for this admission?: Yes (12) Fracture of humerus, left, closed Qualifiers: Encounter type: subsequent encounter Humerus Location: distal Fracture morphology: other fracture Fracture alignment: displaced Is this a current diagnosis for this admission?: Yes (13) Osteoarthritis Qualifiers: Osteoarthritis location: unspecified site Osteoarthritis type: unspecified Qualified Code(s): M19.90 - Unspecified osteoarthritis, unspecified site Is this a current diagnosis for this admission?: Yes (14) Chronic pain syndrome Is this a current diagnosis for this admission?: Yes (15) Bipolar 1 disorder, depressed Is this a current diagnosis for this admission?: Yes (16) Chronic schizoaffective disorder Is this a current diagnosis for this admission?: Yes (17) PTSD (post-traumatic stress disorder) Is this a current diagnosis for this admission?: Yes (18) UTI (urinary tract infection), bacterial Is this a current diagnosis for this admission?: Yes - Time Time Spent with patient: 25-34 minutes Medications reviewed and adjusted accordingly: Yes Anticipated discharge: Home with Homehealth Within: Other - Inpatient Certification Based on my medical assessment, after consideration of the patient's comorbidities, presenting symptoms, or acuity I expect that the services needed warrant INPATIENT care.: Yes I certify that my determination is in accordance with my understanding of Medicare's requirements for reasonable and necessary INPATIENT services [42 CFR 412.3e].: Yes Medical Necessity: Need Close Monitoring Due to Risk of Patient Decompensation, Need For IV Fluids, Need For Continuous Telemetry Monitoring, Need for IV Antibiotics, Risk of Complication if Not Cared For in Hospital Post Hospital Care: D/C [employer] Documentation - Plan Summary Plan Summary: See attending physician orders.
[2018-01-21] MEDS ORDERED: ERTAPENEM SODIUM INJ 1 GM VIAL IV PRN (18:06)
[2018-01-21] MEDS: SIMVASTATIN 10 MG TABLET PO SCH (18:23)
[2018-01-21] MEDS ORDERED: ERTAPENEM SODIUM 1 GM in NORMAL SALINE 50 ML IV ONE (18:30)
[2018-01-21] MEDS ORDERED: ERTAPENEM SODIUM INJ 1 GM VIAL ONE (18:40)
--- NOTE | 2018-01-21 21:10 | PDOC CONSULTATION ---
History of Present Illness Admission Date/PCP: 01/19/18 03:43 JASSON JENISEWhit Patient complains of: Nausea and vomiting History of Present Illness: SANTOS NAVARRO is a 57 year old female with known history of GI bleed and Bipolar? c/ o nausea and vomiting. Question of hematemesis. Past Medical History Cardiac Medical History: Reports: Congestive Heart Failure, Coronary Artery Disease, Myocardial Infarction - 2 STENTS, Hyperlipidema, Hypertension, Peripheral Vascular Disease Denies: Heart Murmur Pulmonary Medical History: Reports: Asthma, Bronchitis, Chronic Obstructive Pulmonary Disease (COPD) - WEARS 2 LNC 24HRS/DAY, Sleep Apnea Denies: Pneumonia, Respiratory Failure, Tuberculosis Neurological Medical History: Reports: Migraine Denies: Seizures Endocrine Medical History: Reports: Diabetes Mellitus Type 2, Hyperthyroidism, Hypothyroidism Renal/ Medical History: Reports: End Stage Renal Disease - Stage IV, no dialysis yet Malignancy Medical History: GI Medical History: Reports: Gastroesophageal Reflux Disease Musculoskeltal Medical History: Reports: Fibromyalgia Denies: Arthritis Psychiatric Medical History: Reports: Bipolar Disorder, Depression, Post Traumatic Stress Disorder Hematology: Denies: Anemia, Hemophilia, Sickle Cell Disease, Bleeding Tendencies Infectious Medical History: Past Surgical History Past Surgical History: Reports: Cardiac Catheterization, Section - x2, Coronary Artery Bypass Graft, Coronary Stent - x2, Hysterectomy, Orthopedic Surgery, Tubal Ligation, Other - multiple colonoscopies for lower GI bleed Denies: Amputation Social History Smoking Status: Never Smoker Frequency of Alcohol Use: None Hx Recreational Drug Use: No Drugs: None Hx Prescription Drug Abuse: No - Advance Directive Resuscitation Status: Full Code Family History Family History: None Parental Family History Reviewed: Yes Children Family History Reviewed: No Sibling(s) Family History Reviewed.: No Medication/Allergy Home Medications: Albuterol Sulfate [Proair HFA Inhalation Aerosol 8.5 gm MDI] 2 puff IH Q4HP PRN 01/10/18 Amitriptyline HCl [Elavil 150 mg Tablet] 150 mg PO DAILY 01/10/18 Aripiprazole [Abilify 30 mg Tablet] 15 mg PO BID 01/10/18 Benztropine Mesylate [Cogentin 1 mg Tablet] 1 mg PO BID 01/10/18 Budesonide/Formoterol Fumarate [Symbicort HFA 160-4.5 mcg Inhaler 6 gm] 2 puff IH BID 01/10/18 Bupropion HCl [Wellbutrin Sr 150 mg Tablet] 150 mg PO QPM 01/10/18 Diclofenac Sodium [Voltaren] 1 applic TOP TIDP PRN 01/10/18 Docusate Sodium [Colace 100 mg Capsule] 100 mg PO BIDP PRN 01/10/18 Duloxetine HCl [Cymbalta] 60 mg PO BID 01/10/18 Furosemide [Lasix 40 mg Tablet] 40 mg PO BID 01/10/18 Gabapentin [Neurontin 300 mg Capsule] 300 mg PO Q8 01/10/18 Insulin Glargine,Hum.rec.anlog [Lantus Solostar] 55 units SQ QAM 01/10/18 Insulin Glargine,Hum.rec.anlog [Lantus Solostar] 65 units SQ QHS 01/10/18 Insulin Lispro [Humalog Kwikpen U-100] 0 units SQ .PERSLIDINGSCALE 01/10/18 Lactulose [Constulose 10 gm/15 mL Oral Solution] 15 ml PO DAILYP PRN 01/10/18 Lactulose [Kristalose 10 gm Packet] 30 gm PO DAILY 01/10/18 Levothyroxine Sodium [Synthroid] 50 mcg PO Q6AM 01/10/18 Liraglutide [Victoza 2-Armando] 1.8 mg SQ DAILY 01/10/18 Magnesium Oxide [Mag-Ox 400 mg Tablet] 400 mg PO BID 01/10/18 Methocarbamol [Robaxin 500 mg Tablet] 500 mg PO TIDP PRN 01/10/18 Naloxegol Oxalate [Movantik 25 mg Tablet] 25 mg PO QAM 01/10/18 Nitroglycerin [Nitro-Dur 5 mg (0.2 mg/Hr) Transdermal Patch] 0.2 mg TD DAILY Omeprazole 40 mg PO Q12 01/10/18 Oxycodone HCl/Acetaminophen [Percocet 10-325 mg Tablet] 1 tab PO Q8HP PRN Saxagliptin HCl [Onglyza] 2.5 mg PO DAILY 01/10/18 Silver Sulfadiazine [Ssd] 1 applic TOP BID 01/10/18 Simvastatin [Zocor 20 mg Tablet] 20 mg PO WSUPPER 01/10/18 Trazodone HCl [Desyrel] 300 mg PO QHS 01/10/18 Valsartan [Diovan 160 mg Tablet] 160 mg PO DAILY 01/10/18 Allergies/Adverse Reactions: cephalexin monohydrate [From Keflex] Allergy (Unknown, Verified 12/24/17 17:38) codeine [Codeine] Allergy (Unknown, Verified 12/24/17 17:38) dicyclomine HCl [From Bentyl] Allergy (Unknown, Verified 12/24/17 17:38) hydrocodone bitartrate [From Vicodin] Allergy (Unknown, Verified 12/24/17 17:38) meloxicam [From Mobic] Allergy (Unknown, Verified 12/24/17 17:38) meperidine HCl [From Demerol (PF)] Allergy (Unknown, Verified 12/24/17 17:38) morphine [Morphine] Allergy (Unknown, Verified 12/24/17 17:38) naproxen sodium [From Naprelan CR Dosepak] Allergy (Unknown, Verified 12/24/17 17:38) nitrofurantoin [From Macrobid] Allergy (Unknown, Verified 12/24/17 17:38) pantoprazole sodium [From Protonix] Allergy (Unknown, Verified 12/24/17 17:38) Penicillins Allergy (Unknown, Verified 12/24/17 17:38) Sulfa (Sulfonamide Antibiotics) Allergy (Unknown, Verified 12/24/17 17:38) lamotrigine [From Lamictal] Allergy (Verified 12/24/17 17:38) rash Review of Systems Constitutional: PRESENT: other - no fever/chills Eyes: PRESENT: other - no visual/hearing changes Cardiovascular: PRESENT: other - no cough/chest pains Gastrointestinal: PRESENT: constipation, nausea, vomiting Genitourinary: PRESENT: other - no dysuria Neurological: PRESENT: frequent falls Physical Exam Vital Signs: Temp Pulse Resp BP Pulse Ox 99.6 F 92 20 138/63 H 95 01/21/18 19:24 01/21/18 19:24 01/21/18 19:24 01/21/18 19:24 01/21/18 19:24 Intake & Output 01/20/18 01/21/18 01/22/18 06:59 06:59 06:59 Intake Total 4757 4048 1170 Output Total 3740 3100 1100 Balance 1043 -732 70 Weight 153.4 kg 157 kg General appearance: PRESENT: mild distress, obese Head exam: PRESENT: atraumatic Eye exam: PRESENT: conjunctiva pink Mouth exam: PRESENT: moist Neck exam: PRESENT: full ROM Respiratory exam: PRESENT: clear to auscultation christine Cardiovascular exam: PRESENT: RRR Pulses: PRESENT: normal radial pulses Vascular exam: PRESENT: normal capillary refill GI/Abdominal exam: PRESENT: soft, other - non tender Rectal exam: PRESENT: deferred Extremities exam: PRESENT: full ROM Musculoskeletal exam: PRESENT: ambulatory Neurological exam: PRESENT: alert, oriented to person, oriented to place, oriented to time, oriented to situation Psychiatric exam: PRESENT: anxious Skin exam: PRESENT: normal color, warm Results Laboratory Results: 01/21/18 07:45 01/21/18 07:45 01/21/18 01/21/18 07:45 07:45 WBC 7.2 RBC 2.92 L Hgb 8.4 L Hct 24.7 L MCV 84 MCH 28.6 MCHC 33.9 RDW 16.2 H Plt Count 233 Seg Neutrophils % 72.1 Lymphocytes % 17.8 Monocytes % 7.5 Eosinophils % 2.0 Basophils % 0.6 Absolute Neutrophils 5.2 Absolute Lymphocytes 1.3 Absolute Monocytes 0.5 Absolute Eosinophils 0.1 Absolute Basophils 0.0 Sodium 142.3 Potassium 4.5 Chloride 101 Carbon Dioxide 30 Anion Gap 11 BUN 20 Creatinine 1.19 Est GFR ( Amer) 56 L Est GFR (Non-Af Amer) 47 L Glucose 140 H Calcium 8.7 Total Bilirubin 0.3 AST 25 ALT 22 Alkaline Phosphatase 162 H Total Protein 6.4 Albumin 3.1 L 01/19/18 07:20 Catheterized Urine Urine Culture - Final Escherichia Coli Impressions: Sacrum and Coccyx X-Ray 01/18/18 23:12 IMPRESSION: No acute abnormality. Lumbar Spine X-Ray 01/18/18 23:13 IMPRESSION: Degenerative changes with no acute abnormality. Assessment & Plan - Time Time Spent: 30 to 50 Minutes - Plan Summary Plan Summary: Check for hemoccult. If positive will need endoscopy Monitor CBC in am May need EGD
[2018-01-21] MEDS: ONDANSETRON HCL INJ/PF 4 MG/2 ML SDV IV PRN (22:35)
[2018-01-21] MEDS: TRAZODONE HCL 50 MG TABLET PO SCH (22:47)
[2018-01-22] MEDS: BENZTROPINE MESYLATE 1 MG TABLET PO SCH ×3 (01:27→21:06)
[2018-01-22] MEDS: DULOXETINE HCL 30 MG CAPSULE.DR PO SCH ×3 (01:27→21:06)
[2018-01-22] MEDS: GABAPENTIN 300 MG CAPSULE PO SCH ×4 (01:27→21:06)
[2018-01-22] MEDS: ARIPIPRAZOLE 5 MG TABLET PO SCH ×3 (01:27→21:06)
[2018-01-22] MEDS: BUPROPION HCL 100 MG TABLET PO SCH ×4 (01:27→21:05)
[2018-01-22] MEDS: LEVOTHYROXINE SODIUM 0.05 MG TABLET PO SCH (05:02)
[2018-01-22] MEDS: NORMAL SALINE 1000 ML 1,000 ML IV PRN ×2 (05:13→18:13)
[2018-01-22] MEDS: LANSOPRAZOLE 30 MG TAB.RAP.DR PO SCH (05:15)
[2018-01-22 06:00] LABS: ABSOLUTE EOSINOPHILS # (AUTO) 0.1 10^3/uL (0.0-0.6); ABSOLUTE LYMPHOCYTES (AUTO) 1.7 10^3/uL (0.5-4.7); ABSOLUTE MONOCYTES (AUTO) 0.5 10^3/uL (0.1-1.4); ABSOLUTE NEUT (AUTO) 4.6 10^3/uL (1.7-8.2); BASOPHILS % (AUTO) 0.6 % (0-2); HEMATOCRIT 25.2 % (36.0-47.0); HEMOGLOBIN 8.5 g/dL (12.0-15.5); LYMPHOCYTES % (AUTO) 24.1 % (13-45); MEAN CORPUSCULAR HEMOGLOBIN 28.7 pg (27.0-33.4); MEAN CORPUSCULAR HGB CONC 33.8 g/dL (32.0-36.0); MEAN CORPUSCULAR VOLUME 85 fl (80-97); MONOCYTES % (AUTO) 7.4 % (3-13); PLATELET COUNT 240 10^3/uL (150-450); RED BLOOD COUNT 2.97 10^6/uL (3.72-5.28); RED CELL DISTRIBUTION WIDTH 16.2 % (11.5-14.0); SEGMENTED NEUTROPHILS % (AUTO) 65.9 % (42-78); TOTAL CELLS COUNTED % (AUTO) 100 %; WHITE BLOOD COUNT 6.9 10^3/uL (4.0-10.5)
[2018-01-22 06:11] LABS: INTERNATIONAL RATION (INR) 1.01; PROTHROMBIN TIME 13.8 SEC (11.4-15.4)
[2018-01-22 06:28] LABS: ANION GAP 11 (5-19); BLOOD UREA NITROGEN 14 mg/dL (7-20); CARBON DIOXIDE 29 mmol/L (22-30); CHLORIDE 104 mmol/L (98-107); GLUCOSE 101 mg/dL (75-110); POTASSIUM 4.4 mmol/L (3.6-5.0); SODIUM 143.6 mmol/L (137-145)
--- NOTE | 2018-01-22 07:54 | PDOC CONSULTATION ---
Consultation Consult Date: 01/21/18 Attending physician:: SERGIO WALKER Consult reason:: rectal bleeding History of Present Illness Admission Date/PCP: 01/19/18 03:43 JASSONEARNEST MARTINI History of Present Illness: SANTOS NAVARRO is a 57 year old female I am asked to this patient who has been admitted My last encounter with this patient dates back to approximately 1 year ago, at that time she had chronic anemia, she did not want any blood transfusion due to then yazidi beliefs. she had also not showed up for a planned colonoscopy since then multiple admission had a fracture in the past had fallen and has complaints of weakness and fatigue also noted to have rectal bleeding a previous colonoscopy done had demonstrated internal hemorrhoids patient had been advised to have surgery in the past now initially admitted to the ICU and transferred. GI consultation is requested, due to her anemia and being lost to follow it might be prudent to resume full GI work up on her to include possible EGD and colonoscopy will speak with the patient Past Medical History Cardiac Medical History: Reports: Congestive Heart Failure, Coronary Artery Disease, Myocardial Infarction - 2 STENTS, Hyperlipidema, Hypertension, Peripheral Vascular Disease Denies: Heart Murmur Pulmonary Medical History: Reports: Asthma, Bronchitis, Chronic Obstructive Pulmonary Disease (COPD) - WEARS 2 LNC 24HRS/DAY, Sleep Apnea Denies: Pneumonia, Respiratory Failure, Tuberculosis Neurological Medical History: Reports: Migraine Denies: Seizures Endocrine Medical History: Reports: Diabetes Mellitus Type 2, Hyperthyroidism, Hypothyroidism Renal/ Medical History: Reports: End Stage Renal Disease - Stage IV, no dialysis yet Malignancy Medical History: GI Medical History: Reports: Gastroesophageal Reflux Disease Musculoskeltal Medical History: Reports: Fibromyalgia Denies: Arthritis Psychiatric Medical History: Reports: Bipolar Disorder, Depression, Post Traumatic Stress Disorder Hematology: Denies: Anemia, Hemophilia, Sickle Cell Disease, Bleeding Tendencies Infectious Medical History: Past Surgical History Past Surgical History: Reports: Cardiac Catheterization, Section - x2, Coronary Artery Bypass Graft, Coronary Stent - x2, Hysterectomy, Orthopedic Surgery, Tubal Ligation Denies: Amputation Social History Smoking Status: Never Smoker Frequency of Alcohol Use: None Hx Recreational Drug Use: No Drugs: None Hx Prescription Drug Abuse: No - Advance Directive Resuscitation Status: Full Code Family History Family History: None Parental Family History Reviewed: Yes Children Family History Reviewed: Unknown Sibling(s) Family History Reviewed.: Unknown Medication/Allergy Home Medications: Albuterol Sulfate [Proair HFA Inhalation Aerosol 8.5 gm MDI] 2 puff IH Q4HP PRN 01/10/18 Amitriptyline HCl [Elavil 150 mg Tablet] 150 mg PO DAILY 01/10/18 Aripiprazole [Abilify 30 mg Tablet] 15 mg PO BID 01/10/18 Benztropine Mesylate [Cogentin 1 mg Tablet] 1 mg PO BID 01/10/18 Budesonide/Formoterol Fumarate [Symbicort HFA 160-4.5 mcg Inhaler 6 gm] 2 puff IH BID 01/10/18 Bupropion HCl [Wellbutrin Sr 150 mg Tablet] 150 mg PO QPM 01/10/18 Diclofenac Sodium [Voltaren] 1 applic TOP TIDP PRN 01/10/18 Docusate Sodium [Colace 100 mg Capsule] 100 mg PO BIDP PRN 01/10/18 Duloxetine HCl [Cymbalta] 60 mg PO BID 01/10/18 Furosemide [Lasix 40 mg Tablet] 40 mg PO BID 01/10/18 Gabapentin [Neurontin 300 mg Capsule] 300 mg PO Q8 01/10/18 Insulin Glargine,Hum.rec.anlog [Lantus Solostar] 55 units SQ QAM 01/10/18 Insulin Glargine,Hum.rec.anlog [Lantus Solostar] 65 units SQ QHS 01/10/18 Insulin Lispro [Humalog Kwikpen U-100] 0 units SQ .PERSLIDINGSCALE 01/10/18 Lactulose [Constulose 10 gm/15 mL Oral Solution] 15 ml PO DAILYP PRN 01/10/18 Lactulose [Kristalose 10 gm Packet] 30 gm PO DAILY 01/10/18 Levothyroxine Sodium [Synthroid] 50 mcg PO Q6AM 01/10/18 Liraglutide [Victoza 2-Armando] 1.8 mg SQ DAILY 01/10/18 Magnesium Oxide [Mag-Ox 400 mg Tablet] 400 mg PO BID 01/10/18 Methocarbamol [Robaxin 500 mg Tablet] 500 mg PO TIDP PRN 01/10/18 Naloxegol Oxalate [Movantik 25 mg Tablet] 25 mg PO QAM 01/10/18 Nitroglycerin [Nitro-Dur 5 mg (0.2 mg/Hr) Transdermal Patch] 0.2 mg TD DAILY Omeprazole 40 mg PO Q12 01/10/18 Oxycodone HCl/Acetaminophen [Percocet 10-325 mg Tablet] 1 tab PO Q8HP PRN Saxagliptin HCl [Onglyza] 2.5 mg PO DAILY 01/10/18 Silver Sulfadiazine [Ssd] 1 applic TOP BID 01/10/18 Simvastatin [Zocor 20 mg Tablet] 20 mg PO WSUPPER 01/10/18 Trazodone HCl [Desyrel] 300 mg PO QHS 01/10/18 Valsartan [Diovan 160 mg Tablet] 160 mg PO DAILY 01/10/18 Allergies/Adverse Reactions: cephalexin monohydrate [From Keflex] Allergy (Unknown, Verified 12/24/17 17:38) codeine [Codeine] Allergy (Unknown, Verified 12/24/17 17:38) dicyclomine HCl [From Bentyl] Allergy (Unknown, Verified 12/24/17 17:38) hydrocodone bitartrate [From Vicodin] Allergy (Unknown, Verified 12/24/17 17:38) meloxicam [From Mobic] Allergy (Unknown, Verified 12/24/17 17:38) meperidine HCl [From Demerol (PF)] Allergy (Unknown, Verified 12/24/17 17:38) morphine [Morphine] Allergy (Unknown, Verified 12/24/17 17:38) naproxen sodium [From Naprelan CR Dosepak] Allergy (Unknown, Verified 12/24/17 17:38) nitrofurantoin [From Macrobid] Allergy (Unknown, Verified 12/24/17 17:38) pantoprazole sodium [From Protonix] Allergy (Unknown, Verified 12/24/17 17:38) Penicillins Allergy (Unknown, Verified 12/24/17 17:38) Sulfa (Sulfonamide Antibiotics) Allergy (Unknown, Verified 12/24/17 17:38) lamotrigine [From Lamictal] Allergy (Verified 12/24/17 17:38) rash Review of Systems Constitutional: PRESENT: weakness. ABSENT: fever(s), headache(s), night sweats Eyes: PRESENT: visual disturbances Ears: ABSENT: hearing changes Cardiovascular: ABSENT: edema, orthropnea Respiratory: ABSENT: dyspnea, hemoptysis Genitourinary: ABSENT: dysuria, hematuria Musculoskeletal: ABSENT: joint swelling Integumentary: ABSENT: lesions, pruritus Neurological: ABSENT: syncope, tingling, tremor(s), vertigo Endocrine: ABSENT: polydipsia, polyphagia, polyuria Hematologic/Lymphatic: PRESENT: easy bruising Physical Exam Vital Signs: Temp Pulse Resp BP Pulse Ox 98.3 F 102 H 20 125/65 99 01/21/18 07:13 01/21/18 07:13 01/21/18 07:13 01/21/18 07:13 01/21/18 08:11 Intake & Output 01/20/18 01/21/18 01/22/18 06:59 06:59 06:59 Intake Total 4783 2368 Output Total 3740 3100 Balance 1043 -732 Weight 153.4 kg 157 kg General appearance: PRESENT: no acute distress, well-developed, well-nourished Head exam: PRESENT: atraumatic, normocephalic Eye exam: PRESENT: EOMI, PERRLA. ABSENT: nystagmus, periorbital swelling, scleral icterus Mouth exam: PRESENT: moist Throat exam: ABSENT: tonsillar exudate, tonsillogmegaly Neck exam: ABSENT: meningismus, tenderness, thyromegaly Respiratory exam: PRESENT: symmetrical, unlabored. ABSENT: tachypnea, wheezes Cardiovascular exam: PRESENT: +S1, +S2. ABSENT: gallop GI/Abdominal exam: PRESENT: soft. ABSENT: rebound, rigid, tenderness Extremities exam: ABSENT: joint swelling Musculoskeletal exam: PRESENT: full ROM Neurological exam: PRESENT: oriented to time, oriented to situation, CN II-XII grossly intact Psychiatric exam: PRESENT: appropriate affect Focused psych exam: ABSENT: restlessness Skin exam: ABSENT: mottled, petechiae, urticaria, vesicles Results Laboratory Results: 01/21/18 07:45 01/21/18 07:45 01/20/18 01/21/18 01/21/18 10:40 07:45 07:45 WBC 7.2 RBC 2.92 L Hgb 8.4 L Hct 24.7 L MCV 84 MCH 28.6 MCHC 33.9 RDW 16.2 H Plt Count 233 Seg Neutrophils % 72.1 Lymphocytes % 17.8 Monocytes % 7.5 Eosinophils % 2.0 Basophils % 0.6 Absolute Neutrophils 5.2 Absolute Lymphocytes 1.3 Absolute Monocytes 0.5 Absolute Eosinophils 0.1 Absolute Basophils 0.0 Sodium 142.5 142.3 Potassium 4.8 4.5 Chloride 103 101 Carbon Dioxide 29 30 Anion Gap 11 11 BUN 29 H 20 Creatinine 1.51 H 1.19 Est GFR ( Amer) 43 L 56 L Est GFR (Non-Af Amer) 35 L 47 L Glucose 165 H 140 H Calcium 8.8 8.7 Total Bilirubin 0.3 0.3 AST 15 25 ALT 22 22 Alkaline Phosphatase 150 H 162 H Total Protein 6.2 L 6.4 Albumin 3.0 L 3.1 L Impressions: Sacrum and Coccyx X-Ray 01/18/18 23:12 IMPRESSION: No acute abnormality. Lumbar Spine X-Ray 01/18/18 23:13 IMPRESSION: Degenerative changes with no acute abnormality. Assessment & Plan - Diagnosis (1) Anemia associated with acute blood loss Is this a current diagnosis for this admission?: Yes Plan: has had some rectal bleeding it was determined in the past that she had both internal and external hemorrhodis she was advised to have surgery she has been seen by Hematology she will need colonoscopy and EGD she will also need Propofol sedation Risks, benefits and alternatives are discussed (2) Rectal bleeding Plan: will determine etiology further recommendations to follow - Time Time Spent: 50 to 70 Minutes
[2018-01-22] MEDS: NITROGLYCERIN 5 MG (0.2 MG/HR) PATCH.TD24 TD SCH (10:58)
[2018-01-22] MEDS: MAGNESIUM OXIDE 400 MG TABLET PO SCH ×2 (10:58→18:08)
[2018-01-22] MEDS: VALSARTAN 160 MG TABLET PO SCH (10:58)
[2018-01-22] MEDS: BUDESONIDE/FORMOTEROL 160-4.5 MCG 60 PUFF/6 GM MDI IH SCH ×2 (10:59→21:07)
[2018-01-22] MEDS: LACTULOSE SYRUP 20 GM/30 ML UDCUP PO SCH (10:59)
[2018-01-22] MEDS: ERTAPENEM SODIUM 1 GM in NORMAL SALINE 50 ML IV SCH (11:00)
[2018-01-22] MEDS: AMITRIPTYLINE HCL 75 MG TABLET PO SCH (11:01)
[2018-01-22] MEDS: SILVER SULFADIAZINE 1% CREAM 50 GM TOP SCH ×2 (11:02→18:11)
[2018-01-22] MEDS: OXYCODONE-ACETAMINOPHEN 5-325 MG TABLET PO PRN (13:17)
[2018-01-22] MEDS ORDERED: MAGNESIUM CITRATE 296 ML BOTTLE PO ONE ×2 (16:00→19:00)
[2018-01-22] MEDS ORDERED: BISACODYL 5 MG TABEC PO ONE ×2 (16:00→19:00)
[2018-01-22] MEDS: SIMVASTATIN 10 MG TABLET PO SCH (17:01)
--- NOTE | 2018-01-22 19:33 | PDOC PROGRESS REPORT ---
Subjective Progress Note for:: 01/22/18 Subjective:: Patient denied any nausea, vomiting or abdominal pain so far today. She is schedule for EGD and Colonoscopy evaluation tomorrow. No chest pain or difficulty with breathing. Reason For Visit: SYMPTOMATIC ANEMIA ACUTE RENAL FAILURE, Physical Exam Vital Signs: Temp Pulse Resp BP Pulse Ox 97.4 F 87 18 163/120 H 99 01/22/18 15:19 01/22/18 15:19 01/22/18 15:19 01/22/18 15:19 01/22/18 15:19 Intake & Output 01/21/18 01/22/18 01/23/18 06:59 06:59 06:59 Intake Total 2368 2270 250 Output Total 3100 1925 575 Balance -732 345 -325 Weight 157 kg 156 kg 156 kg Results Laboratory Results: 01/22/18 05:11 01/22/18 05:11 01/22/18 01/22/18 05:11 05:11 WBC 6.9 RBC 2.97 L Hgb 8.5 L Hct 25.2 L MCV 85 MCH 28.7 MCHC 33.8 RDW 16.2 H Plt Count 240 Seg Neutrophils % 65.9 Lymphocytes % 24.1 Monocytes % 7.4 Eosinophils % 2.0 Basophils % 0.6 Absolute Neutrophils 4.6 Absolute Lymphocytes 1.7 Absolute Monocytes 0.5 Absolute Eosinophils 0.1 Absolute Basophils 0.0 Sodium 143.6 Potassium 4.4 Chloride 104 Carbon Dioxide 29 Anion Gap 11 BUN 14 Creatinine 1.15 Est GFR ( Amer) 59 L Est GFR (Non-Af Amer) 48 L Glucose 101 Calcium 9.0 Impressions: Sacrum and Coccyx X-Ray 01/18/18 23:12 IMPRESSION: No acute abnormality. Lumbar Spine X-Ray 01/18/18 23:13 IMPRESSION: Degenerative changes with no acute abnormality. Assessment & Plan - Diagnosis (1) Anemia associated with acute blood loss Is this a current diagnosis for this admission?: Yes (2) Symptomatic anemia Is this a current diagnosis for this admission?: Yes (3) Internal hemorrhoid, bleeding Is this a current diagnosis for this admission?: Yes (4) External hemorrhoids with complication Is this a current diagnosis for this admission?: Yes (5) Acute renal failure Qualifiers: Acute renal failure type: unspecified Qualified Code(s): N17.9 - Acute kidney failure, unspecified Is this a current diagnosis for this admission?: Yes (6) Hyperkalemia Is this a current diagnosis for this admission?: Yes (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 transplanted heart: [place] heart Qualified Code(s): I25.10 - Atherosclerotic heart disease of [place] coronary artery without angina pectoris Is this a current diagnosis for this admission?: Yes (10) Hx of coronary angioplasty Is this a current diagnosis for this admission?: Yes (11) COPD mixed type Is this a current diagnosis for this admission?: Yes (12) Fracture of humerus, left, closed Qualifiers: Encounter type: subsequent encounter Humerus Location: distal Fracture morphology: other fracture Fracture alignment: displaced Is this a current diagnosis for this admission?: Yes (13) Osteoarthritis Qualifiers: Osteoarthritis location: unspecified site Osteoarthritis type: unspecified Qualified Code(s): M19.90 - Unspecified osteoarthritis, unspecified site Is this a current diagnosis for this admission?: Yes (14) Chronic pain syndrome Is this a current diagnosis for this admission?: Yes (15) Bipolar 1 disorder, depressed Is this a current diagnosis for this admission?: Yes (16) Chronic schizoaffective disorder Is this a current diagnosis for this admission?: Yes (17) PTSD (post-traumatic stress disorder) Is this a current diagnosis for this admission?: Yes (18) UTI (urinary tract infection), bacterial Is this a current diagnosis for this admission?: Yes - Time Time Spent with patient: 25-34 minutes Medications reviewed and adjusted accordingly: Yes Anticipated discharge: Home with Homehealth Within: Other - Inpatient Certification Based on my medical assessment, after consideration of the patient's comorbidities, presenting symptoms, or acuity I expect that the services needed warrant INPATIENT care.: Yes I certify that my determination is in accordance with my understanding of Medicare's requirements for reasonable and necessary INPATIENT services [42 CFR 412.3e].: Yes Medical Necessity: Need Close Monitoring Due to Risk of Patient Decompensation, Need For IV Fluids, Need For Continuous Telemetry Monitoring, Need for IV Antibiotics, Risk of Complication if Not Cared For in Hospital Post Hospital Care: D/C Merchant Patroller Documentation - Plan Summary Plan Summary: See attending physician orders.
[2018-01-22 20:21] LABS: ABSOLUTE EOSINOPHILS # (AUTO) 0.2 10^3/uL (0.0-0.6); ABSOLUTE MONOCYTES (AUTO) 0.6 10^3/uL (0.1-1.4); ABSOLUTE NEUT (AUTO) 4.5 10^3/uL (1.7-8.2); BASOPHILS % (AUTO) 0.6 % (0-2); EOSINOPHILS % (AUTO) 2.7 % (0-6); HEMATOCRIT 25.2 % (36.0-47.0); HEMOGLOBIN 8.4 g/dL (12.0-15.5); LYMPHOCYTES % (AUTO) 26.8 % (13-45); MEAN CORPUSCULAR HEMOGLOBIN 28.3 pg (27.0-33.4); MEAN CORPUSCULAR HGB CONC 33.5 g/dL (32.0-36.0); MEAN CORPUSCULAR VOLUME 85 fl (80-97); MONOCYTES % (AUTO) 8.1 % (3-13); PLATELET COUNT 248 10^3/uL (150-450); RED BLOOD COUNT 2.98 10^6/uL (3.72-5.28); RED CELL DISTRIBUTION WIDTH 16.3 % (11.5-14.0); SEGMENTED NEUTROPHILS % (AUTO) 61.8 % (42-78); TOTAL CELLS COUNTED % (AUTO) 100 %; WHITE BLOOD COUNT 7.3 10^3/uL (4.0-10.5)
[2018-01-22] MEDS: TRAZODONE HCL 50 MG TABLET PO SCH (21:05)
[2018-01-22] MEDS: INSULIN LISPRO 100 UNIT/ML 3 ML VIAL SUBCUT PRN (21:40)
[2018-01-23] MEDS: LEVOTHYROXINE SODIUM 0.05 MG TABLET PO SCH (05:31)
[2018-01-23] MEDS: LANSOPRAZOLE 30 MG TAB.RAP.DR PO SCH (05:31)
[2018-01-23] MEDS: GABAPENTIN 300 MG CAPSULE PO SCH ×3 (05:31→21:29)
[2018-01-23] MEDS: BUPROPION HCL 100 MG TABLET PO SCH ×3 (05:31→21:29)
[2018-01-23] MEDS: NORMAL SALINE 1000 ML 1,000 ML IV PRN (06:10)
[2018-01-23] MEDS: NITROGLYCERIN 5 MG (0.2 MG/HR) PATCH.TD24 TD SCH (10:40)
[2018-01-23] MEDS: SILVER SULFADIAZINE 1% CREAM 50 GM TOP SCH ×2 (10:43→18:27)
[2018-01-23] MEDS: BENZTROPINE MESYLATE 1 MG TABLET PO SCH ×2 (10:45→21:29)
[2018-01-23] MEDS: MAGNESIUM OXIDE 400 MG TABLET PO SCH ×3 (10:45→18:57)
[2018-01-23] MEDS: VALSARTAN 160 MG TABLET PO SCH (10:46)
[2018-01-23] MEDS: DULOXETINE HCL 30 MG CAPSULE.DR PO SCH ×2 (10:47→21:29)
[2018-01-23] MEDS: LACTULOSE SYRUP 20 GM/30 ML UDCUP PO SCH (10:47)
[2018-01-23] MEDS: AMITRIPTYLINE HCL 75 MG TABLET PO SCH (10:49)
[2018-01-23] MEDS: ARIPIPRAZOLE 5 MG TABLET PO SCH ×2 (10:49→21:30)
[2018-01-23] MEDS: ERTAPENEM SODIUM 1 GM in NORMAL SALINE 50 ML IV SCH (10:53)
[2018-01-23] MEDS: BUDESONIDE/FORMOTEROL 160-4.5 MCG 60 PUFF/6 GM MDI IH SCH ×2 (10:56→21:30)
[2018-01-23] MEDS ORDERED: LIDOCAINE 2% INJ-PF (20 MG/ML) 10 ML AMPUL ONE (13:16)
[2018-01-23] MEDS ORDERED: PROPOFOL INJ 200 MG/20 ML VIAL IV ONE ×2 (13:16→14:25)
[2018-01-23] MEDS ORDERED: IPRATROPIUM/ALBUTEROL 0.5-2.5 MG/3 ML AMPUL NEB ONE ×2 (13:24→15:00)
--- NOTE | 2018-01-23 15:26 | Operative Report ---
Operative Report DATE OF SURGERY: 01/23/18 Operative Report: The risks, benefits and alternatives of the procedure including risks of bleeding, perforation requiring surgery are explained to the patient in detail and informed consent is obtained. Patient is taken back to the operating room and placed in a left, lateral decubital position. Timeout was called. Propofol medication is administered. A rectal examination is done which did not reveal any masses, tears or fissures. An Olympus videoscope was inserted into the patient's rectum. The scope was then carefully advanced all the way to the cecum. The cecum was identified by the usual anatomical landmarks including the ileocecal valve as well as appendiceal office. photodocumentation was obtained. Back via the various segments of the colon including the ascending colon, hepatic flexure, transverse colon, splenic flexure, descending colon and finding to the rectosigmoid portions of the colon. Retroflexion maneuvers performed. The risks benefits and alternatives of the procedure explained to the patient in detail and informed consent is obtained.A GIF Olympus video scope was inserted into the patient's mouth and hypopharynx, the esophagus is identified intubated and insufflated ,the scope was then advanced through the esophagus stomach and duodenum ,retroflexion maneuver is done, the esophagus stomach and first and second portions of the duodenum examined PREOPERATIVE DIAGNOSIS: Rectal bleeding, gastritis POSTOPERATIVE DIAGNOSIS: Internal and external hemorrhoids. Possible rectal polyp, however since the location is very close to the hemorrhoid it was not removed. Right side colon Inflammation. Gastritis status post biopsy. Gastric AVM that is ablated and side to OPERATION: Colonoscopy with biopsy. EGD with ablation. EGD with biopsy SURGEON: SERGIO WALKER ANESTHESIA: LMAC TISSUE REMOVED OR ALTERED: As noted above. COMPLICATIONS: None. ESTIMATED BLOOD LOSS: None. INTRAOPERATIVE FINDINGS: As noted above. PROCEDURE: Patient tolerated the procedure well. No immediate postprocedure complications are noted. Patient is discharged back to her room in good condition. Resume regular meds, diet, activity level We will wait on biopsy Watch H&H Recommend surgical evaluation for removal of internal and external hemorrhoids; which have been determined a year ago.
--- NOTE | 2018-01-23 18:42 | PDOC PROGRESS REPORT ---
Subjective Progress Note for:: 01/23/18 Subjective:: s/p endoscopy and colonoscopy with findings in agreement with internal and external hemorrhoids as source of her recurrent rectal bleeding. EGD revealed gastritis with gastric AVM that was ablated. No nausea, vomiting or abdominal pain. No chest pain or difficult with breathing. Reason For Visit: SYMPTOMATIC ANEMIA ACUTE RENAL FAILURE, Physical Exam Vital Signs: Temp Pulse Resp BP Pulse Ox 97.4 F 88 18 139/64 H 100 01/23/18 15:07 01/23/18 15:07 01/23/18 15:07 01/23/18 15:07 01/23/18 15:07 Intake & Output 01/22/18 01/23/18 01/24/18 06:59 06:59 06:59 Intake Total 2270 3180 2800 Output Total 1925 1200 Balance 345 1980 2800 Weight 156 kg 157.2 kg Physical Exam: General appearance: PRESENT: morbidly obese Head exam: PRESENT: atraumatic, normocephalic Mouth exam: PRESENT: moist Teeth exam: PRESENT: poor dentation Respiratory exam: PRESENT: clear to auscultation christine Cardiovascular exam: PRESENT: RRR. ABSENT: diastolic murmur, rubs, systolic murmur GI/Abdominal exam: PRESENT: normal bowel sounds, soft. No tenderness. ABSENT: distended, guarding, mass, organomegaly, rebound Gentrourinary exam: PRESENT: indwelling catheter. Extremities exam: PRESENT: pedal edema - very minimal pitting edema Musculoskeletal exam: PRESENT: deformity - due to recent left closed distal humerus fracture in cast Neurological exam: PRESENT: alert, awake, oriented to person, oriented to place , oriented to time, oriented to situation, CN II-XII grossly intact. ABSENT: motor sensory deficit Skin exam: PRESENT: dry, intact, warm. ABSENT: cyanosis, rash Results Laboratory Results: 01/22/18 20:14 01/22/18 05:11 01/22/18 01/23/18 20:14 01:28 WBC 7.3 RBC 2.98 L Hgb 8.4 L Hct 25.2 L MCV 85 MCH 28.3 MCHC 33.5 RDW 16.3 H Plt Count 248 Seg Neutrophils % 61.8 Lymphocytes % 26.8 Monocytes % 8.1 Eosinophils % 2.7 Basophils % 0.6 Absolute Neutrophils 4.5 Absolute Lymphocytes 2.0 Absolute Monocytes 0.6 Absolute Eosinophils 0.2 Absolute Basophils 0.0 Stool Occult Blood POSITIVE Impressions: Sacrum and Coccyx X-Ray 01/18/18 23:12 IMPRESSION: No acute abnormality. Lumbar Spine X-Ray 01/18/18 23:13 IMPRESSION: Degenerative changes with no acute abnormality. Assessment & Plan - Diagnosis (1) Anemia associated with acute blood loss Is this a current diagnosis for this admission?: Yes (2) Symptomatic anemia Is this a current diagnosis for this admission?: Yes (3) Internal hemorrhoid, bleeding Is this a current diagnosis for this admission?: Yes (4) External hemorrhoids with complication Is this a current diagnosis for this admission?: Yes (5) Acute renal failure Qualifiers: Acute renal failure type: unspecified Qualified Code(s): N17.9 - Acute kidney failure, unspecified Is this a current diagnosis for this admission?: Yes (6) Hyperkalemia Is this a current diagnosis for this admission?: Yes (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 transplanted heart: [place] heart Qualified Code(s): I25.10 - Atherosclerotic heart disease of [place] coronary artery without angina pectoris Is this a current diagnosis for this admission?: Yes (10) Hx of coronary angioplasty Is this a current diagnosis for this admission?: Yes (11) COPD mixed type Is this a current diagnosis for this admission?: Yes (12) Fracture of humerus, left, closed Qualifiers: Encounter type: subsequent encounter Humerus Location: distal Fracture morphology: other fracture Fracture alignment: displaced Is this a current diagnosis for this admission?: Yes (13) Osteoarthritis Qualifiers: Osteoarthritis location: unspecified site Osteoarthritis type: unspecified Qualified Code(s): M19.90 - Unspecified osteoarthritis, unspecified site Is this a current diagnosis for this admission?: Yes (14) Chronic pain syndrome Is this a current diagnosis for this admission?: Yes (15) Bipolar 1 disorder, depressed Is this a current diagnosis for this admission?: Yes (16) Chronic schizoaffective disorder Is this a current diagnosis for this admission?: Yes (17) PTSD (post-traumatic stress disorder) Is this a current diagnosis for this admission?: Yes (18) UTI (urinary tract infection), bacterial Is this a current diagnosis for this admission?: Yes (19) Gastric AVM Is this a current diagnosis for this admission?: Yes Plan: Treated with ablation during EGD procedure earlier today. See attending physician orders. - Time Time Spent with patient: 25-34 minutes Medications reviewed and adjusted accordingly: Yes Anticipated discharge: Home with Homehealth Within: Other - Inpatient Certification Based on my medical assessment, after consideration of the patient's comorbidities, presenting symptoms, or acuity I expect that the services needed warrant INPATIENT care.: Yes I certify that my determination is in accordance with my understanding of Medicare's requirements for reasonable and necessary INPATIENT services [42 CFR 412.3e].: Yes Medical Necessity: Need Close Monitoring Due to Risk of Patient Decompensation, Need For Continuous Telemetry Monitoring, Need for IV Antibiotics, Risk of Complication if Not Cared For in Hospital Post Hospital Care: D/C Take Away Worker Documentation - Plan Summary Plan Summary: See attending physician orders.
[2018-01-23] MEDS: SIMVASTATIN 10 MG TABLET PO SCH (18:57)
[2018-01-23] MEDS: TRAZODONE HCL 50 MG TABLET PO SCH (21:29)
[2018-01-23] MEDS: OXYCODONE-ACETAMINOPHEN 5-325 MG TABLET PO PRN (21:37)
[2018-01-23] MEDS: INSULIN LISPRO 100 UNIT/ML 3 ML VIAL SUBCUT PRN (23:06)
[2018-01-23] MEDS ORDERED: GLUCAGON,HUMAN RECOMB 1 MG INJ SUBCUT PRN (23:29)
[2018-01-23] MEDS ORDERED: DEXTROSE 50%-WATER 25 GM/50 ML DISP.SYRIN IV PRN ×2 (23:29)
[2018-01-23] MEDS ORDERED: DEXTROSE 40% GEL 15 GM TUBE PO PRN ×2 (23:29)
[2018-01-24] MEDS: OXYCODONE-ACETAMINOPHEN 5-325 MG TABLET PO PRN ×2 (01:56→08:28)
[2018-01-24] MEDS: NORMAL SALINE 1000 ML 1,000 ML IV PRN (02:04)
[2018-01-24] MEDS: GABAPENTIN 300 MG CAPSULE PO SCH ×3 (06:13→21:37)
[2018-01-24] MEDS: LANSOPRAZOLE 30 MG TAB.RAP.DR PO SCH (06:13)
[2018-01-24] MEDS: BUPROPION HCL 100 MG TABLET PO SCH ×3 (06:13→21:38)
[2018-01-24] MEDS: LEVOTHYROXINE SODIUM 0.05 MG TABLET PO SCH (06:13)
[2018-01-24] MEDS: NITROGLYCERIN 5 MG (0.2 MG/HR) PATCH.TD24 TD SCH (10:02)
[2018-01-24] MEDS: LACTULOSE SYRUP 20 GM/30 ML UDCUP PO SCH (10:02)
[2018-01-24] MEDS: DULOXETINE HCL 30 MG CAPSULE.DR PO SCH ×2 (10:03→21:37)
[2018-01-24] MEDS: MAGNESIUM OXIDE 400 MG TABLET PO SCH ×2 (10:03→18:11)
[2018-01-24] MEDS: ARIPIPRAZOLE 5 MG TABLET PO SCH ×2 (10:03→21:38)
[2018-01-24] MEDS: BENZTROPINE MESYLATE 1 MG TABLET PO SCH ×2 (10:03→21:37)
[2018-01-24] MEDS: BUDESONIDE/FORMOTEROL 160-4.5 MCG 60 PUFF/6 GM MDI IH SCH ×2 (10:03→21:35)
[2018-01-24] MEDS: VALSARTAN 160 MG TABLET PO SCH (10:03)
[2018-01-24] MEDS: AMITRIPTYLINE HCL 75 MG TABLET PO SCH (10:04)
[2018-01-24] MEDS: ERTAPENEM SODIUM 1 GM in NORMAL SALINE 50 ML IV SCH (10:43)
[2018-01-24] MEDS: INSULIN LISPRO 100 UNIT/ML 3 ML VIAL SUBCUT PRN ×2 (13:15→21:42)
[2018-01-24] MEDS: SIMVASTATIN 10 MG TABLET PO SCH (18:11)
--- NOTE | 2018-01-24 18:18 | PDOC PROGRESS REPORT ---
Subjective Progress Note for:: 01/24/18 Subjective:: No recurrent rectal bleed. No abdominal pain, nausea or vomiting. Awaiting surgical note from [facility] for further evaluation before surgical team at this facility can give opinion of intervention. o chest pain or difficulty with breathing. Reason For Visit: SYMPTOMATIC ANEMIA ACUTE RENAL FAILURE, Physical Exam Vital Signs: Temp Pulse Resp BP Pulse Ox 99.9 F 109 H 15 105/71 98 01/24/18 15:25 01/24/18 15:25 01/24/18 15:25 01/24/18 15:25 01/24/18 15:25 Intake & Output 01/23/18 01/24/18 01/25/18 06:59 06:59 06:59 Intake Total 3180 5421 861 Output Total 1200 925 Balance 1980 4496 861 Weight 157.2 kg 155.7 kg Physical Exam: General appearance: PRESENT: morbidly obese Head exam: PRESENT: atraumatic, normocephalic Mouth exam: PRESENT: moist Teeth exam: PRESENT: poor dentition Respiratory exam: PRESENT: clear to auscultation christine Cardiovascular exam: PRESENT: RRR. ABSENT: diastolic murmur, rubs, systolic murmur GI/Abdominal exam: PRESENT: normal bowel sounds, soft. No tenderness. ABSENT: distended, guarding, mass, organomegaly, rebound Gentrourinary exam: PRESENT: indwelling catheter. Extremities exam: PRESENT: pedal edema - very minimal pitting edema Musculoskeletal exam: PRESENT: deformity - due to recent left closed distal humerus fracture in cast Neurological exam: PRESENT: alert, awake, oriented to person, oriented to place , oriented to time, oriented to situation, CN II-XII grossly intact. ABSENT: motor sensory deficit Skin exam: PRESENT: dry, intact, warm. ABSENT: cyanosis, rash Results Laboratory Results: 01/22/18 20:14 01/22/18 05:11 Impressions: Sacrum and Coccyx X-Ray 01/18/18 23:12 IMPRESSION: No acute abnormality. Lumbar Spine X-Ray 01/18/18 23:13 IMPRESSION: Degenerative changes with no acute abnormality. Assessment & Plan - Diagnosis (1) Anemia associated with acute blood loss Is this a current diagnosis for this admission?: Yes (2) Symptomatic anemia Is this a current diagnosis for this admission?: Yes (3) Internal hemorrhoid, bleeding Is this a current diagnosis for this admission?: Yes (4) External hemorrhoids with complication Is this a current diagnosis for this admission?: Yes (5) Acute renal failure Qualifiers: Acute renal failure type: unspecified Qualified Code(s): N17.9 - Acute kidney failure, unspecified Is this a current diagnosis for this admission?: Yes (6) Hyperkalemia Is this a current diagnosis for this admission?: Yes (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 transplanted heart: [place] heart Qualified Code(s): I25.10 - Atherosclerotic heart disease of [place] coronary artery without angina pectoris Is this a current diagnosis for this admission?: Yes (10) Hx of coronary angioplasty Is this a current diagnosis for this admission?: Yes (11) COPD mixed type Is this a current diagnosis for this admission?: Yes (12) Fracture of humerus, left, closed Qualifiers: Encounter type: subsequent encounter Humerus Location: distal Fracture morphology: other fracture Fracture alignment: displaced Is this a current diagnosis for this admission?: Yes (13) Osteoarthritis Qualifiers: Osteoarthritis location: unspecified site Osteoarthritis type: unspecified Qualified Code(s): M19.90 - Unspecified osteoarthritis, unspecified site Is this a current diagnosis for this admission?: Yes (14) Chronic pain syndrome Is this a current diagnosis for this admission?: Yes (15) Bipolar 1 disorder, depressed Is this a current diagnosis for this admission?: Yes (16) Chronic schizoaffective disorder Is this a current diagnosis for this admission?: Yes (17) PTSD (post-traumatic stress disorder) Is this a current diagnosis for this admission?: Yes (18) UTI (urinary tract infection), bacterial Is this a current diagnosis for this admission?: Yes (19) Gastric AVM Is this a current diagnosis for this admission?: Yes - Time Time Spent with patient: 25-34 minutes Medications reviewed and adjusted accordingly: Yes Anticipated discharge: Home with Homehealth Within: Other - Inpatient Certification Based on my medical assessment, after consideration of the patient's comorbidities, presenting symptoms, or acuity I expect that the services needed warrant INPATIENT care.: Yes I certify that my determination is in accordance with my understanding of Medicare's requirements for reasonable and necessary INPATIENT services [42 CFR 412.3e].: Yes Medical Necessity: Need Close Monitoring Due to Risk of Patient Decompensation, Need For IV Fluids, Need For Continuous Telemetry Monitoring, Need for IV Antibiotics, Need for Surgery, Risk of Complication if Not Cared For in Hospital Post Hospital Care: D/C Fuels 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 Orthopedic consult with Dr Patel for left humeral closed distal fracture. Follow up on requested surgical note from [facility]. Allow use of CPAP machine while sleeping.
--- NOTE | 2018-01-24 21:33 | RADIOLOGY REPORT (SQ) ---
EXAM DESCRIPTION: HUMERUS LEFT COMPLETED DATE/TIME: 01/24/2018 9:25 pm REASON FOR STUDY: s/p distal left humerus closed fracture COMPARISON: 12/24/2017 NUMBER OF VIEWS: Two views. TECHNIQUE: Two radiographic images were acquired of the left humerus to include elbow and shoulder i n at least one projection. LIMITATIONS: None. FINDINGS: MINERALIZATION: Normal. BONES: Displaced, comminuted fracture of the distal left humerus with interval periosteal reaction an d bony callus formation. There is continued displacement and angulation of this fracture. SOFT TISSUES: Soft tissue swelling about the fracture site. OTHER: No other significant finding. IMPRESSION: Displaced comminuted fracture of the distal left humerus with interval development of pe riosteal reaction and bony callus formation. TECHNICAL DOCUMENTATION: JOB ID: [id number] [employer]- All Rights Reserved Reading location - IP/workstation name: [email or web address]
[2018-01-24] MEDS: TRAZODONE HCL 50 MG TABLET PO SCH (21:37)
--- NOTE | 2018-01-25 01:14 | PDOC CONSULTATION ---
History of Present Illness Admission Date/PCP: 01/19/18 03:43 JASSON MARTINI Patient complains of: Rectal bleeding History of Present Illness: SANTOS NAVARRO is a 57 year old female seen in consultation at the request of Dr. Martini. The patient has been experiencing rectal bleeding for some time ( many months). Unfortunately, the patient also has multiple medical comorbidities, including severe COPD with oxygen dependence and congestive heart failure. The patient reports frequent, severe rectal bleeding with bowel movements. She also has chronic constipation. She reports intermittent rectal pain. Her bleeding always occurs with bowel movements. She has had a recent colonoscopy demonstrating her large internal hemorrhoids. Nothing makes her bleeding better. Constipation and straining make her bleeding worse. Patient has been treated for chronic anemia. Past Medical History Cardiac Medical History: Reports: Congestive Heart Failure, Coronary Artery Disease, Myocardial Infarction - 2 STENTS, Hyperlipidema, Hypertension, Peripheral Vascular Disease Denies: Heart Murmur Pulmonary Medical History: Reports: Asthma, Bronchitis, Chronic Obstructive Pulmonary Disease (COPD) - WEARS 2 LNC 24HRS/DAY, Sleep Apnea Denies: Pneumonia, Respiratory Failure, Tuberculosis Neurological Medical History: Reports: Migraine Denies: Seizures Endocrine Medical History: Reports: Diabetes Mellitus Type 2, Hyperthyroidism, Hypothyroidism Renal/ Medical History: Reports: End Stage Renal Disease - Stage IV, no dialysis yet Malignancy Medical History: GI Medical History: Reports: Gastroesophageal Reflux Disease Musculoskeltal Medical History: Reports: Fibromyalgia Denies: Arthritis Psychiatric Medical History: Reports: Bipolar Disorder, Depression, Post Traumatic Stress Disorder Hematology: Denies: Anemia, Hemophilia, Sickle Cell Disease, Bleeding Tendencies Infectious Medical History: Past Surgical History Past Surgical History: Reports: Cardiac Catheterization, Section - x2, Coronary Artery Bypass Graft, Coronary Stent - x2, Hysterectomy, Orthopedic Surgery, Tubal Ligation, Other - multiple colonoscopies for lower GI bleed Denies: Amputation Social History Smoking Status: Never Smoker Frequency of Alcohol Use: None Hx Recreational Drug Use: No Drugs: None Hx Prescription Drug Abuse: No - Advance Directive Resuscitation Status: Full Code Family History Family History: None Parental Family History Reviewed: Yes Children Family History Reviewed: Yes Sibling(s) Family History Reviewed.: Yes Medication/Allergy Home Medications: Albuterol Sulfate [Proair HFA Inhalation Aerosol 8.5 gm MDI] 2 puff IH Q4HP PRN 01/10/18 Amitriptyline HCl [Elavil 150 mg Tablet] 150 mg PO DAILY 01/10/18 Aripiprazole [Abilify 30 mg Tablet] 15 mg PO BID 01/10/18 Benztropine Mesylate [Cogentin 1 mg Tablet] 1 mg PO BID 01/10/18 Budesonide/Formoterol Fumarate [Symbicort HFA 160-4.5 mcg Inhaler 6 gm] 2 puff IH BID 01/10/18 Bupropion HCl [Wellbutrin Sr 150 mg Tablet] 150 mg PO QPM 01/10/18 Diclofenac Sodium [Voltaren] 1 applic TOP TIDP PRN 01/10/18 Docusate Sodium [Colace 100 mg Capsule] 100 mg PO BIDP PRN 01/10/18 Duloxetine HCl [Cymbalta] 60 mg PO BID 01/10/18 Furosemide [Lasix 40 mg Tablet] 40 mg PO BID 01/10/18 Gabapentin [Neurontin 300 mg Capsule] 300 mg PO Q8 01/10/18 Insulin Glargine,Hum.rec.anlog [Lantus Solostar] 55 units SQ QAM 01/10/18 Insulin Glargine,Hum.rec.anlog [Lantus Solostar] 65 units SQ QHS 01/10/18 Insulin Lispro [Humalog Kwikpen U-100] 0 units SQ .PERSLIDINGSCALE 01/10/18 Lactulose [Constulose 10 gm/15 mL Oral Solution] 15 ml PO DAILYP PRN 01/10/18 Lactulose [Kristalose 10 gm Packet] 30 gm PO DAILY 01/10/18 Levothyroxine Sodium [Synthroid] 50 mcg PO Q6AM 01/10/18 Liraglutide [Victoza 2-Armando] 1.8 mg SQ DAILY 01/10/18 Magnesium Oxide [Mag-Ox 400 mg Tablet] 400 mg PO BID 01/10/18 Methocarbamol [Robaxin 500 mg Tablet] 500 mg PO TIDP PRN 01/10/18 Naloxegol Oxalate [Movantik 25 mg Tablet] 25 mg PO QAM 01/10/18 Nitroglycerin [Nitro-Dur 5 mg (0.2 mg/Hr) Transdermal Patch] 0.2 mg TD DAILY Omeprazole 40 mg PO Q12 01/10/18 Oxycodone HCl/Acetaminophen [Percocet 10-325 mg Tablet] 1 tab PO Q8HP PRN Saxagliptin HCl [Onglyza] 2.5 mg PO DAILY 01/10/18 Silver Sulfadiazine [Ssd] 1 applic TOP BID 01/10/18 Simvastatin [Zocor 20 mg Tablet] 20 mg PO WSUPPER 01/10/18 Trazodone HCl [Desyrel] 300 mg PO QHS 01/10/18 Valsartan [Diovan 160 mg Tablet] 160 mg PO DAILY 01/10/18 Allergies/Adverse Reactions: cephalexin monohydrate [From Keflex] Allergy (Unknown, Verified 12/24/17 17:38) codeine [Codeine] Allergy (Unknown, Verified 12/24/17 17:38) dicyclomine HCl [From Bentyl] Allergy (Unknown, Verified 12/24/17 17:38) hydrocodone bitartrate [From Vicodin] Allergy (Unknown, Verified 12/24/17 17:38) meloxicam [From Mobic] Allergy (Unknown, Verified 12/24/17 17:38) meperidine HCl [From Demerol (PF)] Allergy (Unknown, Verified 12/24/17 17:38) morphine [Morphine] Allergy (Unknown, Verified 12/24/17 17:38) naproxen sodium [From Naprelan CR Dosepak] Allergy (Unknown, Verified 12/24/17 17:38) nitrofurantoin [From Macrobid] Allergy (Unknown, Verified 12/24/17 17:38) pantoprazole sodium [From Protonix] Allergy (Unknown, Verified 12/24/17 17:38) Penicillins Allergy (Unknown, Verified 12/24/17 17:38) Sulfa (Sulfonamide Antibiotics) Allergy (Unknown, Verified 12/24/17 17:38) lamotrigine [From Lamictal] Allergy (Verified 12/24/17 17:38) rash Review of Systems Constitutional: PRESENT: fatigue. ABSENT: anorexia, chills, fever(s) Eyes: ABSENT: visual disturbances Ears: ABSENT: hearing changes Nose, Mouth, and Throat: ABSENT: sore throat Cardiovascular: PRESENT: dyspnea on exertion. ABSENT: chest pain Respiratory: PRESENT: cough, dyspnea Gastrointestinal: PRESENT: constipation, hematochezia. ABSENT: abdominal pain, bloating, nausea, vomiting Integumentary: ABSENT: pruritus, rash Neurological: ABSENT: abnormal speech Psychiatric: ABSENT: anxiety, depression Endocrine: ABSENT: cold intolerance, heat intolerance Hematologic/Lymphatic: PRESENT: easy bleeding - Rectal bleeding. ABSENT: easy bruising Physical Exam Vital Signs: Temp Pulse Resp BP Pulse Ox 98.1 F 108 H 16 103/66 100 01/24/18 19:23 01/24/18 20:15 01/24/18 19:23 01/24/18 19:23 01/24/18 19:23 Intake & Output 01/23/18 01/24/18 01/25/18 06:59 06:59 06:59 Intake Total 3180 5421 1328 Output Total 1200 925 Balance 1980 4496 1328 Weight 157.2 kg 155.7 kg General appearance: PRESENT: no acute distress, morbidly obese Head exam: PRESENT: atraumatic, normocephalic Eye exam: PRESENT: EOMI, PERRLA. ABSENT: scleral icterus Mouth exam: PRESENT: neck supple Teeth exam: PRESENT: poor dentation Neck exam: ABSENT: lymphadenopathy, meningismus, tenderness, thyromegaly, tracheal deviation Respiratory exam: PRESENT: clear to auscultation christine. ABSENT: chest wall tenderness Cardiovascular exam: PRESENT: RRR Pulses: PRESENT: normal radial pulses Vascular exam: PRESENT: normal capillary refill. ABSENT: pallor GI/Abdominal exam: PRESENT: soft. ABSENT: distended, rebound, tenderness Rectal exam: PRESENT: other - Anal skin tags present without signs of thrombosed external hemorrhoids. Internal hemorrhoids protrude with Valsalva. No active bleeding. Extremities exam: PRESENT: pedal edema Musculoskeletal exam: ABSENT: deformity Neurological exam: PRESENT: alert, awake, oriented to person, oriented to place , oriented to time, oriented to situation, CN II-XII grossly intact Psychiatric exam: ABSENT: agitated, anxious Focused psych exam: ABSENT: delusional Skin exam: ABSENT: cyanosis, erythema, jaundice Results Laboratory Results: 01/22/18 20:14 01/22/18 05:11 Impressions: Sacrum and Coccyx X-Ray 01/18/18 23:12 IMPRESSION: No acute abnormality. Lumbar Spine X-Ray 01/18/18 23:13 IMPRESSION: Degenerative changes with no acute abnormality. Humerus X-Ray 01/24/18 00:00 IMPRESSION: Displaced comminuted fracture of the distal left humerus with interval development of periosteal reaction and bony callus formation. Assessment & Plan - Diagnosis (1) Constipation due to opioid therapy Is this a current diagnosis for this admission?: Yes (2) Internal hemorrhoid, bleeding Is this a current diagnosis for this admission?: Yes - Plan Summary Plan Summary: This is a 57-year-old female with multiple medical problems. She has chronic constipation and bleeding internal hemorrhoids. She has no significant thrombosed external hemorrhoids (although she does have anal skin tags). Patient reports that her bleeding is severe. The patient would likely benefit from intervention to help reduce her bleeding internal hemorrhoids. First, I recommend fiber supplementation twice daily and stool softeners. If her constipation persists, no intervention will be durable. Secondly, the patient would very likely benefit from rubber band ligation of her internal hemorrhoids. The patient is a very poor surgical candidate, and general anesthesia is risky. Rubber band ligation could be performed with minimal sedation, and may be the most viable option. I will request the patient's records from [facility], as her cardiac workup was completed there. I will make the patient n.p.o. after midnight in case rubber band ligation can be performed tomorrow.
[2018-01-25] MEDS ORDERED: GLUCAGON,HUMAN RECOMB 1 MG INJ SUBCUT PRN (01:15)
[2018-01-25] MEDS ORDERED: DEXTROSE 40% GEL 15 GM TUBE PO PRN ×2 (01:15)
[2018-01-25] MEDS ORDERED: DEXTROSE 50%-WATER 25 GM/50 ML DISP.SYRIN IV PRN ×2 (01:15)
[2018-01-25] MEDS: LEVOTHYROXINE SODIUM 0.05 MG TABLET PO SCH (05:12)
[2018-01-25] MEDS: GABAPENTIN 300 MG CAPSULE PO SCH ×3 (05:12→21:38)
[2018-01-25] MEDS: BUPROPION HCL 100 MG TABLET PO SCH ×3 (05:12→21:38)
[2018-01-25] MEDS: LANSOPRAZOLE 30 MG TAB.RAP.DR PO SCH (05:12)
[2018-01-25] MEDS: NORMAL SALINE 1000 ML 1,000 ML IV PRN ×2 (05:15→22:29)
--- NOTE | 2018-01-25 06:35 | PDOC CONSULTATION ---
Consultation Consult Date: 01/25/18 Consult reason:: Left distal humerus fracture History of Present Illness Admission Date/PCP: 01/19/18 03:43 JASSONEARNEST MARTINI History of Present Illness: SANTOS NAVARRO is a 57 year old female Patient known to me from multiple previous interactions. Most recently the patient was diagnosed with a left distal humerus fracture was treated was treated nonoperatively because of the patient's medical comorbidities. She was placed in a posterior splint. She is now admitted for other reasons and orthopedics is consulted for changes in management for the left distal humerus fracture Past Medical History Cardiac Medical History: Reports: Congestive Heart Failure, Coronary Artery Disease, Myocardial Infarction - 2 STENTS, Hyperlipidema, Hypertension, Peripheral Vascular Disease Denies: Heart Murmur Pulmonary Medical History: Reports: Asthma, Bronchitis, Chronic Obstructive Pulmonary Disease (COPD) - WEARS 2 LNC 24HRS/DAY, Sleep Apnea Denies: Pneumonia, Respiratory Failure, Tuberculosis Neurological Medical History: Reports: Migraine Denies: Seizures Endocrine Medical History: Reports: Diabetes Mellitus Type 2, Hyperthyroidism, Hypothyroidism Renal/ Medical History: Reports: End Stage Renal Disease - Stage IV, no dialysis yet Malignancy Medical History: GI Medical History: Reports: Gastroesophageal Reflux Disease Musculoskeltal Medical History: Reports: Fibromyalgia Denies: Arthritis Psychiatric Medical History: Reports: Bipolar Disorder, Depression, Post Traumatic Stress Disorder Hematology: Denies: Anemia, Hemophilia, Sickle Cell Disease, Bleeding Tendencies Infectious Medical History: Past Surgical History Past Surgical History: Reports: Cardiac Catheterization, Section - x2, Coronary Artery Bypass Graft, Coronary Stent - x2, Hysterectomy, Orthopedic Surgery, Tubal Ligation, Other - multiple colonoscopies for lower GI bleed Denies: Amputation Social History Information Source: Patient, [facility], [facility] Records Smoking Status: Never Smoker Frequency of Alcohol Use: None Hx Recreational Drug Use: No Drugs: None Hx Prescription Drug Abuse: No - Advance Directive Resuscitation Status: Full Code Family History Family History: None Parental Family History Reviewed: No Children Family History Reviewed: No Sibling(s) Family History Reviewed.: No Medication/Allergy Home Medications: Albuterol Sulfate [Proair HFA Inhalation Aerosol 8.5 gm MDI] 2 puff IH Q4HP PRN 01/10/18 Amitriptyline HCl [Elavil 150 mg Tablet] 150 mg PO DAILY 01/10/18 Aripiprazole [Abilify 30 mg Tablet] 15 mg PO BID 01/10/18 Benztropine Mesylate [Cogentin 1 mg Tablet] 1 mg PO BID 01/10/18 Budesonide/Formoterol Fumarate [Symbicort HFA 160-4.5 mcg Inhaler 6 gm] 2 puff IH BID 01/10/18 Bupropion HCl [Wellbutrin Sr 150 mg Tablet] 150 mg PO QPM 01/10/18 Diclofenac Sodium [Voltaren] 1 applic TOP TIDP PRN 01/10/18 Docusate Sodium [Colace 100 mg Capsule] 100 mg PO BIDP PRN 01/10/18 Duloxetine HCl [Cymbalta] 60 mg PO BID 01/10/18 Furosemide [Lasix 40 mg Tablet] 40 mg PO BID 01/10/18 Gabapentin [Neurontin 300 mg Capsule] 300 mg PO Q8 01/10/18 Insulin Glargine,Hum.rec.anlog [Lantus Solostar] 55 units SQ QAM 01/10/18 Insulin Glargine,Hum.rec.anlog [Lantus Solostar] 65 units SQ QHS 01/10/18 Insulin Lispro [Humalog Kwikpen U-100] 0 units SQ .PERSLIDINGSCALE 01/10/18 Lactulose [Constulose 10 gm/15 mL Oral Solution] 15 ml PO DAILYP PRN 01/10/18 Lactulose [Kristalose 10 gm Packet] 30 gm PO DAILY 01/10/18 Levothyroxine Sodium [Synthroid] 50 mcg PO Q6AM 01/10/18 Liraglutide [Victoza 2-Armando] 1.8 mg SQ DAILY 01/10/18 Magnesium Oxide [Mag-Ox 400 mg Tablet] 400 mg PO BID 01/10/18 Methocarbamol [Robaxin 500 mg Tablet] 500 mg PO TIDP PRN 01/10/18 Naloxegol Oxalate [Movantik 25 mg Tablet] 25 mg PO QAM 01/10/18 Nitroglycerin [Nitro-Dur 5 mg (0.2 mg/Hr) Transdermal Patch] 0.2 mg TD DAILY Omeprazole 40 mg PO Q12 01/10/18 Oxycodone HCl/Acetaminophen [Percocet 10-325 mg Tablet] 1 tab PO Q8HP PRN Saxagliptin HCl [Onglyza] 2.5 mg PO DAILY 01/10/18 Silver Sulfadiazine [Ssd] 1 applic TOP BID 01/10/18 Simvastatin [Zocor 20 mg Tablet] 20 mg PO WSUPPER 01/10/18 Trazodone HCl [Desyrel] 300 mg PO QHS 01/10/18 Valsartan [Diovan 160 mg Tablet] 160 mg PO DAILY 01/10/18 Allergies/Adverse Reactions: cephalexin monohydrate [From Keflex] Allergy (Unknown, Verified 12/24/17 17:38) codeine [Codeine] Allergy (Unknown, Verified 12/24/17 17:38) dicyclomine HCl [From Bentyl] Allergy (Unknown, Verified 12/24/17 17:38) hydrocodone bitartrate [From Vicodin] Allergy (Unknown, Verified 12/24/17 17:38) meloxicam [From Mobic] Allergy (Unknown, Verified 12/24/17 17:38) meperidine HCl [From Demerol (PF)] Allergy (Unknown, Verified 12/24/17 17:38) morphine [Morphine] Allergy (Unknown, Verified 12/24/17 17:38) naproxen sodium [From Naprelan CR Dosepak] Allergy (Unknown, Verified 12/24/17 17:38) nitrofurantoin [From Macrobid] Allergy (Unknown, Verified 12/24/17 17:38) pantoprazole sodium [From Protonix] Allergy (Unknown, Verified 12/24/17 17:38) Penicillins Allergy (Unknown, Verified 12/24/17 17:38) Sulfa (Sulfonamide Antibiotics) Allergy (Unknown, Verified 12/24/17 17:38) lamotrigine [From Lamictal] Allergy (Verified 12/24/17 17:38) rash Review of Systems All systems: as per PMH Physical Exam Vital Signs: Temp Pulse Resp BP Pulse Ox 36.8 C 76 16 123/69 94 01/25/18 03:11 01/25/18 03:11 01/25/18 03:11 01/25/18 03:11 01/25/18 03:11 Intake & Output 01/23/18 01/24/18 01/25/18 06:59 06:59 06:59 Intake Total 3180 5421 1550 Output Total 1200 925 Balance 1980 4496 1550 Weight 157.2 kg 155.7 kg 155.8 kg Physical Exam: Overweight middle aged black female lying in bed. Patient somewhat somnolent. Patient requesting surgical intervention on her left upper extremity. General appearance: PRESENT: no acute distress, mild distress Head exam: PRESENT: normocephalic Respiratory exam: PRESENT: unlabored Cardiovascular exam: PRESENT: RRR Vascular exam: PRESENT: normal capillary refill GI/Abdominal exam: PRESENT: soft Rectal exam: PRESENT: deferred Extremities exam: PRESENT: other - Splint is removed from the left upper extremity. Skin is intact. There appears to be mechanical continuity at the fracture site. Elbow moves in concert with the proximal humerus. Distal neurovascular examination is intact. Results Laboratory Results: 01/22/18 20:14 01/22/18 05:11 Impressions: Sacrum and Coccyx X-Ray 01/18/18 23:12 IMPRESSION: No acute abnormality. Lumbar Spine X-Ray 01/18/18 23:13 IMPRESSION: Degenerative changes with no acute abnormality. Humerus X-Ray 01/24/18 00:00 IMPRESSION: Displaced comminuted fracture of the distal left humerus with interval development of periosteal reaction and bony callus formation. Status: Imported from PACS Assessment & Plan - Diagnosis (1) Fracture of humerus, left, closed Qualifiers: Encounter type: subsequent encounter Humerus Location: distal Fracture morphology: other fracture Fracture alignment: displaced Is this a current diagnosis for this admission?: Yes Plan: 57-year-old black female with a left distal humerus fracture treated nonoperatively because of medical comorbidities and surgical risk. At this point he appears to be healing on the basis of clinical examination as well as radiographic evidence of callus formation. Splint can be left off the left upper extremity. Patient will be placed in a shoulder sling. She can work with occupational therapy and gentle active range of motion. - Time Time Spent: 50 to 70 Minutes Anticipated discharge: Other Within: Other
[2018-01-25] MEDS: ERTAPENEM SODIUM 1 GM in NORMAL SALINE 50 ML IV SCH (11:23)
[2018-01-25] MEDS: LACTULOSE SYRUP 20 GM/30 ML UDCUP PO SCH (11:32)
[2018-01-25] MEDS: MAGNESIUM OXIDE 400 MG TABLET PO SCH ×2 (11:32→19:58)
[2018-01-25] MEDS: DULOXETINE HCL 30 MG CAPSULE.DR PO SCH ×2 (11:34→21:38)
[2018-01-25] MEDS: VALSARTAN 160 MG TABLET PO SCH (11:34)
[2018-01-25] MEDS: OXYCODONE-ACETAMINOPHEN 5-325 MG TABLET PO PRN ×2 (11:35→15:24)
[2018-01-25] MEDS: NITROGLYCERIN 5 MG (0.2 MG/HR) PATCH.TD24 TD SCH (11:35)
[2018-01-25] MEDS: BENZTROPINE MESYLATE 1 MG TABLET PO SCH ×2 (11:35→21:38)
[2018-01-25] MEDS ORDERED: ONDANSETRON HCL INJ/PF 4 MG/2 ML SDV ONE (11:38)
[2018-01-25] MEDS: ARIPIPRAZOLE 5 MG TABLET PO SCH ×2 (11:42→21:39)
[2018-01-25] MEDS: BUDESONIDE/FORMOTEROL 160-4.5 MCG 60 PUFF/6 GM MDI IH SCH ×2 (11:42→21:39)
[2018-01-25] MEDS: AMITRIPTYLINE HCL 75 MG TABLET PO SCH (11:42)
--- NOTE | 2018-01-25 12:02 | PDOC PROGRESS REPORT ---
Subjective Progress Note for:: 01/25/18 Subjective:: Bright red blood per rectum today. Reason For Visit: SYMPTOMATIC ANEMIA ACUTE RENAL FAILURE, Physical Exam Vital Signs: Temp Pulse Resp BP Pulse Ox 97.9 F 89 13 143/70 H 100 01/25/18 08:23 01/25/18 08:23 01/25/18 08:23 01/25/18 08:23 01/25/18 08:23 Intake & Output 01/24/18 01/25/18 01/26/18 06:59 06:59 06:59 Intake Total 5421 1550 Output Total 925 Balance 4496 1550 Weight 155.7 kg 155.8 kg General appearance: PRESENT: no acute distress, cooperative Respiratory exam: PRESENT: clear to auscultation christine Cardiovascular exam: PRESENT: RRR Rectal exam: PRESENT: other - Partially prolapsed internal hemorrhoids reducible. Mild perianal tenderness with digital exam but no fluctuance and no erythema. No blood on the finger with digital exam. Neurological exam: PRESENT: alert, awake Results Laboratory Results: 01/22/18 20:14 01/22/18 05:11 Impressions: Sacrum and Coccyx X-Ray 01/18/18 23:12 IMPRESSION: No acute abnormality. Lumbar Spine X-Ray 01/18/18 23:13 IMPRESSION: Degenerative changes with no acute abnormality. Humerus X-Ray 01/24/18 00:00 IMPRESSION: Displaced comminuted fracture of the distal left humerus with interval development of periosteal reaction and bony callus formation. Assessment & Plan - Diagnosis (1) Internal bleeding hemorrhoids Is this a current diagnosis for this admission?: Yes Plan: Status post GI workup and their impression is that of a hemorrhoidal bleed and I concur. Patient has a significant cardiac history but she is actively bleeding and we need to intervene. I feel that the most reasonable option for her is hemorrhoidal banding. I will plan this procedure under LMAC. I have discussed with the patient the risk and benefits of the procedure including risk of anal sepsis, bleeding, recurrence, cardiopulmonary complications. I have discussed this surgery with Dr. Sharp who requested that I asked cardiology to see the patient. I have discussed her case with Dr. Nieto who will see her preoperatively. But I feel that this procedure strongly indicated despite her cardiac risks.
--- NOTE | 2018-01-25 12:07 | Progress Note ---
Provider Note Provider Note: Called by Dr. Rutherford to see this patient in preop clearance. Patient has known history of coronary artery disease but currently bleeding actively. Patient on questioning denied any chest pain or any significant shortness of breath. Patient is noted to be ambulatory with cane much difficulty. On exam patient does have some pedal edema but no and the other symptoms or signs of CHF. A 12-lead EKG in the chart, was reviewed and is noted to have no acute ischemic changes. I am told by Dr. Rutherford that the surgery he is contemplating to do is minor surgery therefore patient is cleared for that surgery.
[2018-01-25] MEDS ORDERED: LIDOCAINE 0.5%/EPINEPHRINE INJ 50 ML VIAL ONE (18:03)
[2018-01-25] MEDS ORDERED: BUPIVACAINE HCL 0.25 % INJ/PF (2.5 MG/1 ML) 30 ML VIAL ONE (18:04)
[2018-01-25] MEDS ORDERED: MIDAZOLAM 2 MG/2 ML INJ ONE (18:05)
[2018-01-25] MEDS ORDERED: FENTANYL CITRATE INJ/PF 100 MCG/2 ML AMPUL ONE (18:05)
[2018-01-25] MEDS ORDERED: ACETAMINOPHEN 0 MG/0 ML RTUPB IV ONE (18:06)
[2018-01-25] MEDS ORDERED: PROPOFOL INJ 200 MG/20 ML VIAL IV ONE ×2 (18:06→18:12)
[2018-01-25] MEDS ORDERED: KETAMINE HCL INJ 500 MG/10 ML VIAL ONE (18:07)
[2018-01-25] MEDS ORDERED: LIDOCAINE 2% INJ-PF (20 MG/ML) 10 ML AMPUL ONE (18:11)
[2018-01-25] MEDS ORDERED: LIDOCAINE 2% JELLY 30 ML TUBE ONE (18:31)
--- NOTE | 2018-01-25 18:46 | Operative Report ---
Operative Report DATE OF SURGERY: 01/25/18 PREOPERATIVE DIAGNOSIS: bleeding internal hemorrhoids POSTOPERATIVE DIAGNOSIS: Internal hemorrhoids OPERATION: Anoscopy with hemorrhoidal banding 3 SURGEON: MARY PAUL ANESTHESIA: LMAC TISSUE REMOVED OR ALTERED: Internal hemorrhoids banded. COMPLICATIONS: None ESTIMATED BLOOD LOSS: None. INTRAOPERATIVE FINDINGS: 3 column partially prolapsing internal hemorrhoids. Reducible. No active bleeding. Very prominent 3 column internal hemorrhoids PROCEDURE: Informed consent was obtained. Patient was brought to the operating room. Procedure was done under light sedation. Under LMAC. Inspection of her anal canal demonstrated prolapsing internal hemorrhoids which were reducible. Anoscopy was performed. Demonstrating prominent 3 column internal hemorrhoids. Using the suction rubber band device the left lateral, right anterior, and the right posterior internal hemorrhoidal complexes were banded in sequence. Great care was taken to place the bands above the level of the dentate line. I had the patient conscious during the procedure to ensure that she did not have severe pain with the application of the bands. Patient tolerated procedure well with no apparent complications and was taken to the recovery area in stable condition.
--- NOTE | 2018-01-25 19:16 | PDOC PROGRESS REPORT ---
Subjective Progress Note for:: 01/25/18 Subjective:: Patient denied any chest pain or difficulty with breathing. No fever or chills. I discussed case with Dr Rutherford, surgicalist. She is schedule for possible banding intervention if cleared by clinical education consultant. Reason For Visit: SYMPTOMATIC ANEMIA ACUTE RENAL FAILURE, Physical Exam Vital Signs: Temp Pulse Resp BP Pulse Ox 98.4 F 88 14 122/67 100 01/25/18 12:20 01/25/18 14:00 01/25/18 12:20 01/25/18 12:20 01/25/18 12:20 Intake & Output 01/24/18 01/25/18 01/26/18 06:59 06:59 06:59 Intake Total 5421 1550 0 Output Total 925 Balance 4496 1550 0 Weight 155.7 kg 155.8 kg Physical Exam: General appearance: PRESENT: morbidly obese Head exam: PRESENT: atraumatic, normocephalic Mouth exam: PRESENT: moist Teeth exam: PRESENT: poor dentition Respiratory exam: PRESENT: clear to auscultation christine Cardiovascular exam: PRESENT: RRR. ABSENT: diastolic murmur, rubs, systolic murmur GI/Abdominal exam: PRESENT: normal bowel sounds, soft. No tenderness. ABSENT: distended, guarding, mass, organomegaly, rebound Gentrourinary exam: PRESENT: indwelling catheter. Extremities exam: PRESENT: pedal edema - very minimal pitting edema Musculoskeletal exam: PRESENT: deformity - due to recent left closed distal humerus fracture in cast Neurological exam: PRESENT: alert, awake, oriented to person, oriented to place , oriented to time, oriented to situation, CN II-XII grossly intact. ABSENT: motor sensory deficit Skin exam: PRESENT: dry, intact, warm. ABSENT: cyanosis, rash Results Laboratory Results: 01/22/18 20:14 01/22/18 05:11 Impressions: Sacrum and Coccyx X-Ray 01/18/18 23:12 IMPRESSION: No acute abnormality. Lumbar Spine X-Ray 01/18/18 23:13 IMPRESSION: Degenerative changes with no acute abnormality. Humerus X-Ray 01/24/18 00:00 IMPRESSION: Displaced comminuted fracture of the distal left humerus with interval development of periosteal reaction and bony callus formation. Assessment & Plan - Diagnosis (1) Anemia associated with acute blood loss Is this a current diagnosis for this admission?: Yes (2) Symptomatic anemia Is this a current diagnosis for this admission?: Yes (3) Internal hemorrhoid, bleeding Is this a current diagnosis for this admission?: Yes (4) External hemorrhoids with complication Is this a current diagnosis for this admission?: Yes (5) Acute renal failure Qualifiers: Acute renal failure type: unspecified Qualified Code(s): N17.9 - Acute kidney failure, unspecified Is this a current diagnosis for this admission?: Yes (6) Hyperkalemia Is this a current diagnosis for this admission?: Yes (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 transplanted heart: [place] heart Qualified Code(s): I25.10 - Atherosclerotic heart disease of [place] coronary artery without angina pectoris Is this a current diagnosis for this admission?: Yes (10) Hx of coronary angioplasty Is this a current diagnosis for this admission?: Yes (11) COPD mixed type Is this a current diagnosis for this admission?: Yes (12) Fracture of humerus, left, closed Qualifiers: Encounter type: subsequent encounter Humerus Location: distal Fracture morphology: other fracture Fracture alignment: displaced Is this a current diagnosis for this admission?: Yes (13) Osteoarthritis Qualifiers: Osteoarthritis location: unspecified site Osteoarthritis type: unspecified Qualified Code(s): M19.90 - Unspecified osteoarthritis, unspecified site Is this a current diagnosis for this admission?: Yes (14) Chronic pain syndrome Is this a current diagnosis for this admission?: Yes (15) Bipolar 1 disorder, depressed Is this a current diagnosis for this admission?: Yes (16) Chronic schizoaffective disorder Is this a current diagnosis for this admission?: Yes (17) PTSD (post-traumatic stress disorder) Is this a current diagnosis for this admission?: Yes (18) UTI (urinary tract infection), bacterial Is this a current diagnosis for this admission?: Yes (19) Gastric AVM Is this a current diagnosis for this admission?: Yes - Time Time Spent with patient: 25-34 minutes Medications reviewed and adjusted accordingly: Yes Anticipated discharge: Home Within: Other - Inpatient Certification Based on my medical assessment, after consideration of the patient's comorbidities, presenting symptoms, or acuity I expect that the services needed warrant INPATIENT care.: Yes I certify that my determination is in accordance with my understanding of Medicare's requirements for reasonable and necessary INPATIENT services [42 CFR 412.3e].: Yes Medical Necessity: Need Close Monitoring Due to Risk of Patient Decompensation, Need For Continuous Telemetry Monitoring, Need for IV Antibiotics, Risk of Complication if Not Cared For in Hospital Post Hospital Care: D/C Reel Operator Documentation - Plan Summary Plan Summary: See attending physician orders.
[2018-01-25] MEDS ORDERED: PROMETHAZINE HCL INJ 25 MG/1 ML VIAL IV PRN (19:37)
[2018-01-25] MEDS ORDERED: DIPHENHYDRAMINE HCL 50 MG/ML VIAL IV PRN (19:37)
[2018-01-25] MEDS ORDERED: FENTANYL CITRATE INJ/PF 100 MCG/2 ML AMPUL IV PRN ×3 (19:37)
[2018-01-25] MEDS: SIMVASTATIN 10 MG TABLET PO SCH (19:58)
--- NOTE | 2018-01-25 20:12 | PDOC CONSULTATION ---
Consultation Consult Date: 01/25/18 Attending physician:: MARY PAUL Consult reason:: Preop cardiac clearance History of Present Illness Admission Date/PCP: 01/19/18 03:43 JASSON OSUNKSB Patient complains of: Rectal bleed History of Present Illness: SANTOS NAVARRO is a 57 year old female, with numerous medical problems and history of CAD, who was noted to have active rectal bleed along with anemia. It was felt that patient would need surgery and ligation of the hemorrhoids. Because of patient's significant cardiac issues, I was asked to evaluate patient. On questioning patient denied any chest pain. She denied any shortness of breath. Patient has limited physical activity. She walks with a cane. Patient has history of bipolar disorder. She also has significant obesity. Patient denied any recent cardiac events in the last 2 weeks. Past Medical History Cardiac Medical History: Reports: Congestive Heart Failure, Coronary Artery Disease, Myocardial Infarction - 2 STENTS, Hyperlipidema, Hypertension, Peripheral Vascular Disease Denies: Heart Murmur Pulmonary Medical History: Reports: Asthma, Bronchitis, Chronic Obstructive Pulmonary Disease (COPD) - WEARS 2 LNC 24HRS/DAY, Sleep Apnea Denies: Pneumonia, Respiratory Failure, Tuberculosis Neurological Medical History: Reports: Migraine Denies: Seizures Endocrine Medical History: Reports: Diabetes Mellitus Type 2, Hyperthyroidism, Hypothyroidism Renal/ Medical History: Reports: End Stage Renal Disease - Stage IV, no dialysis yet Malignancy Medical History: GI Medical History: Reports: Gastroesophageal Reflux Disease Musculoskeltal Medical History: Reports: Fibromyalgia Denies: Arthritis Psychiatric Medical History: Reports: Bipolar Disorder, Depression, Post Traumatic Stress Disorder Hematology: Denies: Anemia, Hemophilia, Sickle Cell Disease, Bleeding Tendencies Infectious Medical History: Past Surgical History Past Surgical History: Reports: Cardiac Catheterization, Section - x2, Coronary Artery Bypass Graft, Coronary Stent - x2, Hysterectomy, Orthopedic Surgery, Tubal Ligation, Other - multiple colonoscopies for lower GI bleed Denies: Amputation Social History Information Source: Patient Smoking Status: Never Smoker Frequency of Alcohol Use: None Hx Recreational Drug Use: No Drugs: None Hx Prescription Drug Abuse: No - Advance Directive Resuscitation Status: Full Code Family History Family History: None, Hypertension Parental Family History Reviewed: Yes Children Family History Reviewed: Yes Sibling(s) Family History Reviewed.: Yes Medication/Allergy Home Medications: Albuterol Sulfate [Proair HFA Inhalation Aerosol 8.5 gm I] 2 puff IH Q4HP PRN 01/10/18 Amitriptyline HCl [Elavil 150 mg Tablet] 150 mg PO DAILY 01/10/18 Aripiprazole [Abilify 30 mg Tablet] 15 mg PO BID 01/10/18 Benztropine Mesylate [Cogentin 1 mg Tablet] 1 mg PO BID 01/10/18 Budesonide/Formoterol Fumarate [Symbicort HFA 160-4.5 mcg Inhaler 6 gm] 2 puff IH BID 01/10/18 Bupropion HCl [Wellbutrin Sr 150 mg Tablet] 150 mg PO QPM 01/10/18 Diclofenac Sodium [Voltaren] 1 applic TOP TIDP PRN 01/10/18 Docusate Sodium [Colace 100 mg Capsule] 100 mg PO BIDP PRN 01/10/18 Duloxetine HCl [Cymbalta] 60 mg PO BID 01/10/18 Furosemide [Lasix 40 mg Tablet] 40 mg PO BID 01/10/18 Gabapentin [Neurontin 300 mg Capsule] 300 mg PO Q8 01/10/18 Insulin Glargine,Hum.rec.anlog [Lantus Solostar] 55 units SQ QAM 01/10/18 Insulin Glargine,Hum.rec.anlog [Lantus Solostar] 65 units SQ QHS 01/10/18 Insulin Lispro [Humalog Kwikpen U-100] 0 units SQ .PERSLIDINGSCALE 01/10/18 Lactulose [Constulose 10 gm/15 mL Oral Solution] 15 ml PO DAILYP PRN 01/10/18 Lactulose [Kristalose 10 gm Packet] 30 gm PO DAILY 01/10/18 Levothyroxine Sodium [Synthroid] 50 mcg PO Q6AM 01/10/18 Liraglutide [Victoza 2-Armando] 1.8 mg SQ DAILY 01/10/18 Magnesium Oxide [Mag-Ox 400 mg Tablet] 400 mg PO BID 01/10/18 Methocarbamol [Robaxin 500 mg Tablet] 500 mg PO TIDP PRN 01/10/18 Naloxegol Oxalate [Movantik 25 mg Tablet] 25 mg PO QAM 01/10/18 Nitroglycerin [Nitro-Dur 5 mg (0.2 mg/Hr) Transdermal Patch] 0.2 mg TD DAILY Omeprazole 40 mg PO Q12 01/10/18 Oxycodone HCl/Acetaminophen [Percocet 10-325 mg Tablet] 1 tab PO Q8HP PRN Saxagliptin HCl [Onglyza] 2.5 mg PO DAILY 01/10/18 Silver Sulfadiazine [Ssd] 1 applic TOP BID 01/10/18 Simvastatin [Zocor 20 mg Tablet] 20 mg PO WSUPPER 01/10/18 Trazodone HCl [Desyrel] 300 mg PO QHS 01/10/18 Valsartan [Diovan 160 mg Tablet] 160 mg PO DAILY 01/10/18 Allergies/Adverse Reactions: cephalexin monohydrate [From Keflex] Allergy (Unknown, Verified 12/24/17 17:38) codeine [Codeine] Allergy (Unknown, Verified 12/24/17 17:38) dicyclomine HCl [From Bentyl] Allergy (Unknown, Verified 12/24/17 17:38) hydrocodone bitartrate [From Vicodin] Allergy (Unknown, Verified 12/24/17 17:38) meloxicam [From Mobic] Allergy (Unknown, Verified 12/24/17 17:38) meperidine HCl [From Demerol (PF)] Allergy (Unknown, Verified 12/24/17 17:38) morphine [Morphine] Allergy (Unknown, Verified 12/24/17 17:38) naproxen sodium [From Naprelan CR Dosepak] Allergy (Unknown, Verified 12/24/17 17:38) nitrofurantoin [From Macrobid] Allergy (Unknown, Verified 12/24/17 17:38) pantoprazole sodium [From Protonix] Allergy (Unknown, Verified 12/24/17 17:38) Penicillins Allergy (Unknown, Verified 12/24/17 17:38) Sulfa (Sulfonamide Antibiotics) Allergy (Unknown, Verified 12/24/17 17:38) lamotrigine [From Lamictal] Allergy (Verified 12/24/17 17:38) rash Review of Systems Review of Systems: Please see history of present illness and past medical history as wall. Constitutional: No fever or chills reported. Head : No recent chronic headaches, recent head injury. Eyes: No recent eye pain, diplopia, redness, discharge, acute visual changes. Ears: No recent chronic ear pain, acute hearing loss, ear discharge. Oral cavity: No recent ulcerations, bleeding, oral cavity discomfort. Neck: No recent acute neck pain reported. Hematologic: No recent easy bruising or bleeding. Lymphatic: No recent lymph node enlargement reported. Cardiovascular system review: See history of present illness. Respiratory system review: No hemoptysis or blood clots in the lungs reported. Shortness of breath on exertion Gastrointestinal system review: Negative for any recent acute hematemesis, patient noted to have bright red blood per rectum. Genitourinary system review: No recent acute or chronic hematuria, flank pain, UTI etc. reported. Skin system review: Negative for any recent abnormal bruising, no rash, no pruritus reported. Neurologic: No prior history of strokes, mini strokes, seizure disorder. Psychologic: No history of major psychosis or major depression reported. Musculoskeletal: Minor aches and pains reported. No acute joint swelling reported. Patient describes limited mobility and decreased muscle strength Endocrine: No recent polyuria, polydipsia, recent heat or cold intolerance. Physical Exam Vital Signs: Temp Pulse Resp BP Pulse Ox 98.4 F 88 14 122/67 100 01/25/18 12:20 01/25/18 14:00 01/25/18 12:20 01/25/18 12:20 01/25/18 12:20 Intake & Output 01/24/18 01/25/18 01/26/18 06:59 06:59 06:59 Intake Total 5421 1550 800 Output Total 925 2 Balance 4496 1550 798 Weight 155.7 kg 155.8 kg Exam: GENERAL: well-nourished and in no acute distress. Alert and oriented x3 HEAD: Atraumatic, normocephalic. EYES: Pupils equal round and reactive to light, extraocular movements intact, sclera anicteric, conjunctiva are normal. ENT: TMs normal, nares patent, oropharynx clear without exudates. Moist mucous membranes. No oral ulcerations or bleeding gums noted NECK: supple without lymphadenopathy. Trachea is central. No cervical or axillary lymphadenopathy noted. Carotids are 2+, JVD WNL LUNGS: Respiration seems nonlabored, no significant accessory muscle action noted. Breath sounds clear to auscultation bilaterally and equal noted. No wheezes rales or rhonchi noted. No significant dullness noted on percussion. CHEST: Palpation of the chest wall shows no significant chest wall tenderness. 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 ABDOMEN: Soft, no significant tenderness appreciated, normoactive bowel sounds. No guarding, no rebound. No rigidity noted . No masses appreciated. EXTREMITIES: Pedal pulses are 1-2+, no calf tenderness noted. No clubbing or cyanosis. 1-2+ chronic pedal edema noted NEUROLOGICAL: Focused neurological exam showed no significant neurologic deficit. Normal speech, no focal weakness appreciated. PSYCH: Normal mood, normal affect. Judgment and insight within normal limits. SKIN: No significant ecchymosis, skin is noted to be warm. MUSCULOSKELETAL EXAM: No significant acute joint swelling noted. Results Laboratory Results: 01/22/18 20:14 01/22/18 05:11 EKG Comments: Admission EKG showed sinus rhythm. No acute ST-T wave changes are noted. Impressions: Sacrum and Coccyx X-Ray 01/18/18 23:12 IMPRESSION: No acute abnormality. Lumbar Spine X-Ray 01/18/18 23:13 IMPRESSION: Degenerative changes with no acute abnormality. Humerus X-Ray 01/24/18 00:00 IMPRESSION: Displaced comminuted fracture of the distal left humerus with interval development of periosteal reaction and bony callus formation. Assessment & Plan - Diagnosis (1) Rectal bleeding Is this a current diagnosis for this admission?: Yes (2) Anemia Qualifiers: Anemia type: unspecified type Qualified Code(s): D64.9 - Anemia, unspecified Is this a current diagnosis for this admission?: Yes (3) Coronary artery disease Qualifiers: Coronary Disease-Associated Artery/Lesion type: [place] artery [place] vs. transplanted heart: [place] heart Associated angina: angina presence unspecified Qualified Code(s): I25.10 - Atherosclerotic heart disease of [place] coronary artery without angina pectoris Is this a current diagnosis for this admission?: Yes (4) Chronic kidney disease Qualifiers: Chronic kidney disease stage: unspecified stage Qualified Code(s): N18.9 - Chronic kidney disease, unspecified Is this a current diagnosis for this admission?: Yes (5) Weakness Is this a current diagnosis for this admission?: Yes (6) HTN (hypertension) Qualifiers: Hypertension type: essential hypertension Qualified Code(s): I10 - Essential (primary) hypertension Is this a current diagnosis for this admission?: Yes (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 Patient also is [place]. Control of bleeding is essential. At this point have cleared patient for surgery for ligation of rectal hemorrhoids.Rectal bleeding: I am told by the surgeon that this is significant and is in need for ligation of hemorrhoids. This is a relatively low risk procedure therefore patient was cleared for procedure. Anemia: Possibly multifactorial with contribution from acute blood loss anemia. Currently patient hemodynamically stable. Agree with proceeding with ligation of hemorrhoids since patient also is a [place]ian. Coronary artery disease: Patient describes history of blockages and stents. Currently however stable without any angina or angina equivalent symptom. Chronic kidney disease: Stable. Hypertension: Currently satisfactorily controlled. Continue current regimen. Multiple complications of diabetes: Stable this is being well managed by internal combustion engineer. Preop cardiovascular examination: Patient felt acceptable candidate for proceeding with surgery. - Time Time Spent: 30 to 50 Minutes - More than 50% of the time spent coordinating care , discussing management plans with involved caregivers. Management plans discussed with involved personnels. Medical decision making was of moderate to high complexity, patient's has multiple comorbidities. Medications reviewed and adjusted accordingly: Yes
[2018-01-25] MEDS: TRAZODONE HCL 50 MG TABLET PO SCH (21:38)
[2018-01-25 22:02] LABS: ABSOLUTE BASOPHILS # (AUTO) 0.1 10^3/uL (0.0-0.2); ABSOLUTE EOSINOPHILS # (AUTO) 0.3 10^3/uL (0.0-0.6); ABSOLUTE LYMPHOCYTES (AUTO) 1.9 10^3/uL (0.5-4.7); ABSOLUTE MONOCYTES (AUTO) 0.6 10^3/uL (0.1-1.4); ABSOLUTE NEUT (AUTO) 5.3 10^3/uL (1.7-8.2); BASOPHILS % (AUTO) 1.3 % (0-2); EOSINOPHILS % (AUTO) 4.1 % (0-6); HEMATOCRIT 25.3 % (36.0-47.0); HEMOGLOBIN 8.5 g/dL (12.0-15.5); LYMPHOCYTES % (AUTO) 23.4 % (13-45); MEAN CORPUSCULAR HEMOGLOBIN 28.3 pg (27.0-33.4); MEAN CORPUSCULAR HGB CONC 33.7 g/dL (32.0-36.0); MEAN CORPUSCULAR VOLUME 84 fl (80-97); MONOCYTES % (AUTO) 7.3 % (3-13); PLATELET COUNT 251 10^3/uL (150-450); RED BLOOD COUNT 3.02 10^6/uL (3.72-5.28); RED CELL DISTRIBUTION WIDTH 16.4 % (11.5-14.0); SEGMENTED NEUTROPHILS % (AUTO) 63.9 % (42-78); TOTAL CELLS COUNTED % (AUTO) 100 %; WHITE BLOOD COUNT 8.3 10^3/uL (4.0-10.5)
[2018-01-26] MEDS: LEVOTHYROXINE SODIUM 0.05 MG TABLET PO SCH (05:19)
[2018-01-26] MEDS: BUPROPION HCL 100 MG TABLET PO SCH ×2 (05:20→13:02)
[2018-01-26] MEDS: GABAPENTIN 300 MG CAPSULE PO SCH ×2 (05:20→13:02)
[2018-01-26] MEDS: LANSOPRAZOLE 30 MG TAB.RAP.DR PO SCH (05:20)
[2018-01-26 05:25] LABS: ANION GAP 10 (5-19); BLOOD UREA NITROGEN 7 mg/dL (7-20); CALCIUM 8.7 mg/dL (8.4-10.2); CARBON DIOXIDE 25 mmol/L (22-30); CHLORIDE 107 mmol/L (98-107); GLUCOSE 165 mg/dL (75-110); POTASSIUM 3.9 mmol/L (3.6-5.0); SODIUM 141.5 mmol/L (137-145)
--- NOTE | 2018-01-26 09:13 | PDOC PROGRESS REPORT ---
Subjective Reason For Visit: SYMPTOMATIC ANEMIA ACUTE RENAL FAILURE, No more bleeding. Physical Exam Vital Signs: Temp Pulse Resp BP Pulse Ox 98.0 F 100 16 106/61 99 01/26/18 03:02 01/26/18 07:00 01/26/18 03:02 01/26/18 03:02 01/26/18 03:02 Intake & Output 01/25/18 01/26/18 01/27/18 06:59 06:59 06:59 Intake Total 1550 4726 Output Total 2 Balance 1550 4724 Weight 155.8 kg 156.4 kg General appearance: PRESENT: no acute distress Results Laboratory Results: 01/25/18 21:45 01/26/18 04:22 01/25/18 01/26/18 21:45 04:22 WBC 8.3 RBC 3.02 L Hgb 8.5 L Hct 25.3 L MCV 84 MCH 28.3 MCHC 33.7 RDW 16.4 H Plt Count 251 Seg Neutrophils % 63.9 Lymphocytes % 23.4 Monocytes % 7.3 Eosinophils % 4.1 Basophils % 1.3 Absolute Neutrophils 5.3 Absolute Lymphocytes 1.9 Absolute Monocytes 0.6 Absolute Eosinophils 0.3 Absolute Basophils 0.1 Sodium 141.5 Potassium 3.9 Chloride 107 Carbon Dioxide 25 Anion Gap 10 BUN 7 Creatinine 0.94 Est GFR ( Amer) > 60 Est GFR (Non-Af Amer) > 60 Glucose 165 H Calcium 8.7 Impressions: Sacrum and Coccyx X-Ray 01/18/18 23:12 IMPRESSION: No acute abnormality. Lumbar Spine X-Ray 01/18/18 23:13 IMPRESSION: Degenerative changes with no acute abnormality. Humerus X-Ray 01/24/18 00:00 IMPRESSION: Displaced comminuted fracture of the distal left humerus with interval development of periosteal reaction and bony callus formation. Assessment & Plan - Diagnosis (1) Internal bleeding hemorrhoids Is this a current diagnosis for this admission?: Yes Plan: Status post banding by Dr. Stevens; clinically improved; no further bleeding. Recommendations: 1. We will sign off for now; call surgery consultation as needed.
[2018-01-26] MEDS: BUDESONIDE/FORMOTEROL 160-4.5 MCG 60 PUFF/6 GM MDI IH SCH (09:37)
[2018-01-26] MEDS: DULOXETINE HCL 30 MG CAPSULE.DR PO SCH (09:37)
[2018-01-26] MEDS: AMITRIPTYLINE HCL 75 MG TABLET PO SCH (09:38)
[2018-01-26] MEDS: LACTULOSE SYRUP 20 GM/30 ML UDCUP PO SCH (09:39)
[2018-01-26] MEDS: NITROGLYCERIN 5 MG (0.2 MG/HR) PATCH.TD24 TD SCH (09:40)
[2018-01-26] MEDS: BENZTROPINE MESYLATE 1 MG TABLET PO SCH (09:43)
[2018-01-26] MEDS: MAGNESIUM OXIDE 400 MG TABLET PO SCH (09:43)
[2018-01-26] MEDS: ERTAPENEM SODIUM 1 GM in NORMAL SALINE 50 ML IV SCH (09:43)
[2018-01-26] MEDS: VALSARTAN 160 MG TABLET PO SCH (09:43)
[2018-01-26] MEDS: OXYCODONE-ACETAMINOPHEN 5-325 MG TABLET PO PRN (09:44)
[2018-01-26] MEDS: ARIPIPRAZOLE 5 MG TABLET PO SCH (10:15)
[2018-01-26] MEDS: INSULIN LISPRO 100 UNIT/ML 3 ML VIAL SUBCUT PRN (12:49)
--- NOTE | 2018-01-26 16:31 | PDOC DISCHARGE SUMMARY ---
General - Admit/Disc Date/PCP Admission Date/Primary Care Provider: 01/19/18 03:43 JASSONEARNEST MARTINI Discharge Date: 01/26/18 - Discharge Diagnosis (1) Anemia associated with acute blood loss Is this a current diagnosis for this admission?: Yes (2) Symptomatic anemia Is this a current diagnosis for this admission?: Yes (3) Internal hemorrhoid, bleeding Is this a current diagnosis for this admission?: Yes (4) External hemorrhoids with complication Is this a current diagnosis for this admission?: Yes (5) Acute renal failure Is this a current diagnosis for this admission?: Yes (6) Hyperkalemia Is this a current diagnosis for this admission?: Yes (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 Is this a current diagnosis for this admission?: Yes (8) HTN (hypertension) Is this a current diagnosis for this admission?: Yes (9) Coronary artery disease without angina pectoris Is this a current diagnosis for this admission?: Yes (10) Hx of coronary angioplasty Is this a current diagnosis for this admission?: Yes (11) COPD mixed type Is this a current diagnosis for this admission?: Yes (12) Fracture of humerus, left, closed Is this a current diagnosis for this admission?: Yes (13) Osteoarthritis Is this a current diagnosis for this admission?: Yes (14) Chronic pain syndrome Is this a current diagnosis for this admission?: Yes (15) Bipolar 1 disorder, depressed Is this a current diagnosis for this admission?: Yes (16) Chronic schizoaffective disorder Is this a current diagnosis for this admission?: Yes (17) PTSD (post-traumatic stress disorder) Is this a current diagnosis for this admission?: Yes (18) UTI (urinary tract infection), bacterial Is this a current diagnosis for this admission?: Yes (19) Gastric AVM Is this a current diagnosis for this admission?: Yes - Additional Information Resuscitation Status: Full Code Discharge Diet: Cardiac, Diabetic Discharge Activity: Activity As Tolerated Home Medications: Albuterol Sulfate [Proair HFA Inhalation Aerosol 8.5 gm MDI] 2 puff IH Q4HP PRN 01/10/18 Amitriptyline HCl [Elavil 150 mg Tablet] 150 mg PO DAILY 01/10/18 Aripiprazole [Abilify 30 mg Tablet] 15 mg PO BID 01/10/18 Benztropine Mesylate [Cogentin 1 mg Tablet] 1 mg PO BID 01/10/18 Budesonide/Formoterol Fumarate [Symbicort HFA 160-4.5 mcg Inhaler 6 gm] 2 puff IH BID 01/10/18 Bupropion HCl [Wellbutrin Sr 150 mg Tablet] 150 mg PO QPM 01/10/18 Diclofenac Sodium [Voltaren] 1 applic TOP TIDP PRN 01/10/18 Docusate Sodium [Colace 100 mg Capsule] 100 mg PO BIDP PRN 01/10/18 Duloxetine HCl [Cymbalta] 60 mg PO BID 01/10/18 Furosemide [Lasix 40 mg Tablet] 40 mg PO BID 01/10/18 Gabapentin [Neurontin 300 mg Capsule] 300 mg PO Q8 01/10/18 Insulin Glargine,Hum.rec.anlog [Lantus Solostar] 55 units SQ QAM 01/10/18 Insulin Glargine,Hum.rec.anlog [Lantus Solostar] 65 units SQ QHS 01/10/18 Insulin Lispro [Humalog Kwikpen U-100] 0 units SQ .PERSLIDINGSCALE 01/10/18 Lactulose [Constulose 10 gm/15 mL Oral Solution] 15 ml PO DAILYP PRN 01/10/18 Lactulose [Kristalose 10 gm Packet] 30 gm PO DAILY 01/10/18 Levothyroxine Sodium [Synthroid] 50 mcg PO Q6AM 01/10/18 Liraglutide [Victoza 2-Armando] 1.8 mg SQ DAILY 01/10/18 Magnesium Oxide [Mag-Ox 400 mg Tablet] 400 mg PO BID 01/10/18 Methocarbamol [Robaxin 500 mg Tablet] 500 mg PO TIDP PRN 01/10/18 Naloxegol Oxalate [Movantik 25 mg Tablet] 25 mg PO QAM 01/10/18 Nitroglycerin [Nitro-Dur 5 mg (0.2 mg/Hr) Transdermal Patch] 0.2 mg TD DAILY Omeprazole 40 mg PO Q12 01/10/18 Oxycodone HCl/Acetaminophen [Percocet 10-325 mg Tablet] 1 tab PO Q8HP PRN Saxagliptin HCl [Onglyza] 2.5 mg PO DAILY 01/10/18 Silver Sulfadiazine [Ssd] 1 applic TOP BID 01/10/18 Simvastatin [Zocor 20 mg Tablet] 20 mg PO WSUPPER 01/10/18 Trazodone HCl [Desyrel] 300 mg PO QHS 01/10/18 Valsartan [Diovan 160 mg Tablet] 160 mg PO DAILY 01/10/18 History of Present Illness History of Present Illness: SANTOS NAVARRO is a 57 year old female who presented to the ED with complain of recurrent falls at home and uncontrollable tremor. Patient reported associated pain in her buttocks. She denied loss of consciousness or any further injury beyond her left distal humeral fracture that happened about 1 month ago. She was recently discharged from this facility following episodes of significant lower gastrointestinal bleeding that was related to hemorrhoid. Patient reported persistent intermittent rectal bleeding with bowel movement since discharge. She denied any significant constipation or hard stool. She reported associated right lower abdominal pain. No nausea or vomiting. She reported worsening weakness and fatigue over last one week. Her initial ED evaluation was remarkable for hypotension, tachycardia, worsening renal indices, and anemia. She was advised hospitalization due to her severe symptomatic anemia and acute kidney injury. Her extensive morbidities include Diabetes Mellitus Type 2, chronic systolic congestive heart failure, Coronary Artery Disease with old Myocardial infarction s/p two stent angioplasty, Hypertension, Hyperlipidemia, Peripheral Vascular Disease, COPD on supplemental oxygen at 2L/ min via nasal cannula, Asthma, Migraine, Hypothyroidism, Stage IV Chronic Kidney Disease, Gastroesophageal Reflux Disease, Osteoarthritis, left distal humeral fracture, Bipolar Disorder with anxiety and depression, chronic schizophrenia, and Post Traumatic Stress Disorder. Hospital Course Hospital Course: Patient was transfused total 4 units PRBC due to significant symptomatic anemia from acute blood loss as a result of internal and external hemorrhoid. She had EGD and Colonoscopy done during this hospitalization by Dr Carrera that confirm some degree of gastritis and internal hemorrhoid. She was seen by Dr Rutherford, surgeon, and eventfully had hemorrhoid banding procedure completed on 01/25/18. No recurrent rectal bleeding post banding. She was seen in consultation by Dr Patel, orthopedic surgeon regarding her left humeral fracture management and recommend left upper extremity support. She was seen by Dr Nieto, certified coder, for pre-operative clearance. she is willing to be discharge home today. She will have her home health services reinstated with [facility]. Check CBC at follow up office visit. Follow up with surgical team and myself as instructed upon discharge. Physical Exam Vital Signs: Temp Pulse Resp BP Pulse Ox 98.6 F 92 16 129/77 H 97 01/26/18 10:49 01/26/18 14:00 01/26/18 10:49 01/26/18 10:49 01/26/18 10:49 Intake & Output 01/25/18 01/26/18 01/27/18 06:59 06:59 06:59 Intake Total 1550 4776 Output Total 2 Balance 1550 4774 Weight 155.8 kg 156.4 kg General appearance: PRESENT: no acute distress, morbidly obese Head exam: PRESENT: atraumatic, normocephalic Eye exam: PRESENT: conjunctiva pink, EOMI, PERRLA. ABSENT: scleral icterus Ear exam: PRESENT: normal external ear exam Mouth exam: PRESENT: moist Teeth exam: PRESENT: poor dentation Respiratory exam: PRESENT: clear to auscultation christine Cardiovascular exam: PRESENT: RRR. ABSENT: diastolic murmur, rubs, systolic murmur Vascular exam: PRESENT: normal capillary refill. ABSENT: pallor GI/Abdominal exam: PRESENT: normal bowel sounds, soft. ABSENT: distended, guarding, mass, organolmegaly, rebound, tenderness Extremities exam: ABSENT: pedal edema Musculoskeletal exam: PRESENT: deformity - related to her recent left humeral fracture Neurological exam: PRESENT: alert, awake, oriented to person, oriented to place , oriented to time, oriented to situation, CN II-XII grossly intact. ABSENT: motor sensory deficit Psychiatric exam: PRESENT: appropriate affect, normal mood. ABSENT: homicidal ideation, suicidal ideation Skin exam: PRESENT: dry, warm Results Laboratory Results: 01/25/18 21:45 01/26/18 04:22 01/25/18 01/26/18 21:45 04:22 WBC 8.3 RBC 3.02 L Hgb 8.5 L Hct 25.3 L MCV 84 MCH 28.3 MCHC 33.7 RDW 16.4 H Plt Count 251 Seg Neutrophils % 63.9 Lymphocytes % 23.4 Monocytes % 7.3 Eosinophils % 4.1 Basophils % 1.3 Absolute Neutrophils 5.3 Absolute Lymphocytes 1.9 Absolute Monocytes 0.6 Absolute Eosinophils 0.3 Absolute Basophils 0.1 Sodium 141.5 Potassium 3.9 Chloride 107 Carbon Dioxide 25 Anion Gap 10 BUN 7 Creatinine 0.94 Est GFR ( Amer) > 60 Est GFR (Non-Af Amer) > 60 Glucose 165 H Calcium 8.7 Impressions: Sacrum and Coccyx X-Ray 01/18/18 23:12 IMPRESSION: No acute abnormality. Lumbar Spine X-Ray 01/18/18 23:13 IMPRESSION: Degenerative changes with no acute abnormality. Humerus X-Ray 01/24/18 00:00 IMPRESSION: Displaced comminuted fracture of the distal left humerus with interval development of periosteal reaction and bony callus formation. Qualifiers - * PATIENT BEING DISCHARGED WITH ANY OF THE FOLLOWING DIAGNOSIS: No Plan Discharge Plan: D/C home today. Follow up with surgical team and myselkf as instructed upon discharge.
[2018-01-26 16:52] VITALS: BP 121/66
--- NOTE | 2018-01-26 18:29 | PDOC PROGRESS REPORT ---
Subjective Progress Note for:: 01/26/18 Subjective:: Patient denies any further bleeding. Bleeding is controlled. Patient does describe history of constipation. Patient seems to be doing better with gradual improvement. Pt is denying any chest arm or neck discomfort. Patient denying any PND, orthopnea. Patient denied any sustained palpitations, dizziness, syncope, near syncope. Patient denying any fever chills. Patient denying any other significant discomfort. Patient is maintaining sinus rhythm. Review of systems: Rest review of systems negative. Medications: Medications have been reviewed. Reason For Visit: SYMPTOMATIC ANEMIA ACUTE RENAL FAILURE, Physical Exam Vital Signs: Temp Pulse Resp BP Pulse Ox 98.6 F 92 16 121/66 97 01/26/18 16:45 01/26/18 16:45 01/26/18 16:45 01/26/18 16:45 01/26/18 16:45 Intake & Output 01/25/18 01/26/18 01/27/18 06:59 06:59 06:59 Intake Total 1550 4776 Output Total 2 Balance 1550 4774 Weight 155.8 kg 156.4 kg Exam: GENERAL: well-nourished and in no acute distress. Alert and oriented x3 HEAD: Atraumatic, normocephalic. EYES: Pupils equal round and reactive to light, extraocular movements intact, sclera anicteric, conjunctiva are normal. ENT: TMs normal, nares patent, oropharynx clear without exudates. Moist mucous membranes. No oral ulcerations or bleeding gums noted NECK: supple without lymphadenopathy. Trachea is central. No cervical or axillary lymphadenopathy noted. Carotids are 2+, JVD WNL LUNGS: Respiration seems nonlabored, no significant accessory muscle action noted. Breath sounds clear to auscultation bilaterally and equal noted. No wheezes rales or rhonchi noted. No significant dullness noted on percussion. CHEST: Palpation of the chest wall shows no significant chest wall tenderness. HEART: [place] SHERIFF, No PSH, 1/6 FAIZAN aortic area, 1/6 porter systolic murmur mitral area, no rubs, no gallops. ABDOMEN: Soft, no significant tenderness appreciated, normoactive bowel sounds. No guarding, no rebound. No rigidity noted . No masses appreciated. EXTREMITIES: Pedal pulses are 1-2+, no calf tenderness noted. No clubbing or cyanosis. 1+ chronic pedal edema noted NEUROLOGICAL: Focused neurological exam showed no significant neurologic deficit. Normal speech, no focal weakness appreciated. PSYCH: Normal mood, normal affect. Judgment and insight within normal limits. SKIN: No significant ecchymosis, skin is noted to be warm. MUSCULOSKELETAL EXAM: No significant acute joint swelling noted. Results Laboratory Results: 01/25/18 21:45 01/26/18 04:22 01/25/18 01/26/18 21:45 04:22 WBC 8.3 RBC 3.02 L Hgb 8.5 L Hct 25.3 L MCV 84 MCH 28.3 MCHC 33.7 RDW 16.4 H Plt Count 251 Seg Neutrophils % 63.9 Lymphocytes % 23.4 Monocytes % 7.3 Eosinophils % 4.1 Basophils % 1.3 Absolute Neutrophils 5.3 Absolute Lymphocytes 1.9 Absolute Monocytes 0.6 Absolute Eosinophils 0.3 Absolute Basophils 0.1 Sodium 141.5 Potassium 3.9 Chloride 107 Carbon Dioxide 25 Anion Gap 10 BUN 7 Creatinine 0.94 Est GFR ( Amer) > 60 Est GFR (Non-Af Amer) > 60 Glucose 165 H Calcium 8.7 EKG Comments: Telemetry strip shows sinus rhythm without any sustained tachycardia or bradycardia. Impressions: Sacrum and Coccyx X-Ray 01/18/18 23:12 IMPRESSION: No acute abnormality. Lumbar Spine X-Ray 01/18/18 23:13 IMPRESSION: Degenerative changes with no acute abnormality. Humerus X-Ray 01/24/18 00:00 IMPRESSION: Displaced comminuted fracture of the distal left humerus with interval development of periosteal reaction and bony callus formation. Assessment & Plan - Diagnosis (1) Rectal bleeding Is this a current diagnosis for this admission?: Yes (2) Anemia Qualifiers: Anemia type: unspecified type Qualified Code(s): D64.9 - Anemia, unspecified Is this a current diagnosis for this admission?: Yes (3) Coronary artery disease Qualifiers: Coronary Disease-Associated Artery/Lesion type: [place] artery [place] vs. transplanted heart: [place] heart Associated angina: angina presence unspecified Qualified Code(s): I25.10 - Atherosclerotic heart disease of [place] coronary artery without angina pectoris Is this a current diagnosis for this admission?: Yes (4) Chronic kidney disease Qualifiers: Chronic kidney disease stage: unspecified stage Qualified Code(s): N18.9 - Chronic kidney disease, unspecified Is this a current diagnosis for this admission?: Yes (5) Weakness Is this a current diagnosis for this admission?: Yes (6) HTN (hypertension) Qualifiers: Hypertension type: essential hypertension Qualified Code(s): I10 - Essential (primary) hypertension Is this a current diagnosis for this admission?: Yes (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 Patient noted to be in stable postop situation day 1. Patient has been encouraged to ambulate and increase fiber content of the diet and also avoid constipation. Currently doing well and resting comfortably. All medical problems listed above are in stable condition. Patient encouraged to follow-up with flavor extractor and other specialist as she has done before. Will sign off. - Time Time with patient: 15-25 minutes Medications reviewed and adjusted accordingly: Yes
--- NOTE | 2018-02-27 13:34 | Progress Note ---
Provider Note Provider Note: Clarification sought on this patient by the billing dept of [facility] she was admitted due to GI bleeding this is explained by the internal hemorrhoids( which was actually diagnosed several years ago) but only recently received attention in the process of the work up, she also had an EGD done incidental finding of gastric AVM, this was not actively bleeding and likely was not contributing to her rectal bleeding however patient has chronic anemia so it likely contributed to her anemia but not to her GI bleeding during this past admission.
== END 2018-01-26 17:23 | disposition home health service (06) | DRG 348 ==
LOC: ER 22:35 → EH 01-19 03:43 → ICU 01-19 07:15 → 3N 01-20 15:44
PROVIDERS: ADMIT Internal Medicine Geriatric Medicine; ATTEND Internal Medicine Geriatric Medicine
PROC: 30233N1 Transfusion of Nonautologous Red Blood Cells into Peripheral Vein, Percutaneous Approach (ICD-10-PCS; 2018-01-19)
PROC: 06HM33Z Insertion of Infusion Device into Right Femoral Vein, Percutaneous Approach (ICD-10-PCS; 2018-01-19)
PROC: 0D5 Gastrointestinal System, Destruction (ICD-10-PCS; 2018-01-23)
PROC: 0DB78ZX Excision of Stomach, Pylorus, Via Natural or Artificial Opening Endoscopic, Diagnostic (ICD-10-PCS; 2018-01-23 13:30)
PROC: 0DJD8ZZ Inspection of Lower Intestinal Tract, Via Natural or Artificial Opening Endoscopic (ICD-10-PCS; 2018-01-23 13:30)
PROC: 06LY4CC Occlusion of Hemorrhoidal Plexus with Extraluminal Device, Percutaneous Endoscopic Approach (ICD-10-PCS; principal; 2018-01-25 16:45)
DX: K64.8 Other hemorrhoids (principal); N17.9 Acute kidney failure, unspecified; I13.0 Hypertensive heart and chronic kidney disease with heart failure and stage 1 through stage 4 chronic kidney disease, or unspecified chronic kidney disease; I50.22 Chronic systolic (congestive) heart failure; N39.0 Urinary tract infection, site not specified; Z68.43 Body mass index [BMI] 50.0-59.9, adult; N18.4 Chronic kidney disease, stage 4 (severe); D62 Acute posthemorrhagic anemia; K31.819 Angiodysplasia of stomach and duodenum without bleeding; K64.5 Perianal venous thrombosis; K29.70 Gastritis, unspecified, without bleeding; K62.1 Rectal polyp; E87.5 Hyperkalemia; I25.10 Atherosclerotic heart disease of native coronary artery without angina pectoris; E11.22 Type 2 diabetes mellitus with diabetic chronic kidney disease; E03.9 Hypothyroidism, unspecified; K21.9 Gastro-esophageal reflux disease without esophagitis; F31.9 Bipolar disorder, unspecified; F20.9 Schizophrenia, unspecified; F43.10 Post-traumatic stress disorder, unspecified; E11.51 Type 2 diabetes mellitus with diabetic peripheral angiopathy without gangrene; D63.1 Anemia in chronic kidney disease; M79.7 Fibromyalgia; M19.90 Unspecified osteoarthritis, unspecified site; E66.01 Morbid (severe) obesity due to excess calories; K59.03 Drug induced constipation; B96.20 Unspecified Escherichia coli [E. coli] as the cause of diseases classified elsewhere; J45.909 Unspecified asthma, uncomplicated; D50.0 Iron deficiency anemia secondary to blood loss (chronic); G43.909 Migraine, unspecified, not intractable, without status migrainosus; T40.2X5A Adverse effect of other opioids, initial encounter; I25.2 Old myocardial infarction; Z95.5 Presence of coronary angioplasty implant and graft; Z90.710 Acquired absence of both cervix and uterus; Z98.51 Tubal ligation status; Z79.4 Long term (current) use of insulin; Z79.899 Other long term (current) drug therapy; Z91.81 History of falling; Z99.81 Dependence on supplemental oxygen; S42.492D Other displaced fracture of lower end of left humerus, subsequent encounter for fracture with routine healing; Z88.6 Allergy status to analgesic agent; Z88.1 Allergy status to other antibiotic agents; Z88.8 Allergy status to other drugs, medicaments and biological substances; Z88.0 Allergy status to penicillin; Z88.2 Allergy status to sulfonamides
CPT/HCPCS: 00813; 00902; 36415; 36430; 43239; 43255; 45378; 72110; 72220; 80048; 80053; 81001; 82272; 82550; 82553; 82803; 82962; 83605; 84443; 84484; 85025; 85610; 86850; 86900; 86901; 86920; 87086; 87088; 87186; 88305; 88342; 93005; 93010; 94660; 99291; 99292; C1751; J0131; J0610; J0696; J1335; J1815; J2250; J2405; J2704; J3010; J3490; J7030; J7050; J7620; P9016

== ENCOUNTER 2018-02-08 07:44 | Outpatient (CLI) | payer MEDICARE, MEDICAID ==
[2018-02-08] MEDS ORDERED: NORMAL SALINE 250 ML IV PRN (08:47)
[2018-02-08] MEDS ORDERED: DIPHENHYDRAMINE HCL 25 MG CAPSULE PO PRN (08:48)
[2018-02-08] MEDS ORDERED: ACETAMINOPHEN 325 MG TABLET PO PRN (08:48)
[2018-02-08] MEDS ORDERED: FUROSEMIDE INJ/PF 20 MG/2 ML SDV IV PRN (08:49)
[2018-02-08 08:54] LABS: HEMATOCRIT 23.3 % (36.0-47.0); MEAN CORPUSCULAR HEMOGLOBIN 27.5 pg (27.0-33.4); MEAN CORPUSCULAR HGB CONC 33.1 g/dL (32.0-36.0); MEAN CORPUSCULAR VOLUME 83 fl (80-97); PLATELET COUNT 270 10^3/uL (150-450); RED BLOOD COUNT 2.81 10^6/uL (3.72-5.28); RED CELL DISTRIBUTION WIDTH 16.8 % (11.5-14.0); WHITE BLOOD COUNT 6.5 10^3/uL (4.0-10.5)
[2018-02-08 08:56] LABS: HEMOGLOBIN 7.7 g/dL (12.0-15.5)
[2018-02-08 14:21] VITALS: BP 135/70
[2018-02-08 15:03] LABS: HEMATOCRIT 28.7 % (36.0-47.0); HEMOGLOBIN 9.4 g/dL (12.0-15.5); MEAN CORPUSCULAR HEMOGLOBIN 27.2 pg (27.0-33.4); MEAN CORPUSCULAR HGB CONC 32.7 g/dL (32.0-36.0); MEAN CORPUSCULAR VOLUME 83 fl (80-97); PLATELET COUNT 279 10^3/uL (150-450); RED BLOOD COUNT 3.44 10^6/uL (3.72-5.28); RED CELL DISTRIBUTION WIDTH 16.2 % (11.5-14.0); WHITE BLOOD COUNT 7.2 10^3/uL (4.0-10.5)
== END 2018-02-08 14:45 | disposition home or self-care (01) ==
LOC: II 07:44 → 5TH 07:46 → II 14:45
PROVIDERS: ATTEND Internal Medicine Medical Oncology
PROC: 30243N1 Transfusion of Nonautologous Red Blood Cells into Central Vein, Percutaneous Approach (ICD-10-PCS; principal; 2018-02-08)
DX: D64.9 Anemia, unspecified (principal); N18.3 Chronic kidney disease, stage 3 (moderate)
CPT/HCPCS: 86900; 86901; 36430; 86850; 85027; 86920; P9016; A9270 ×2

== ENCOUNTER 2018-03-16 15:03 | Observation (INO) | payer MEDICARE, MEDICAID ==
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
[2018-03-16 15:44] LABS: ABSOLUTE EOSINOPHILS # (AUTO) 0.1 10^3/uL (0.0-0.6); ABSOLUTE LYMPHOCYTES (AUTO) 1.6 10^3/uL (0.5-4.7); ABSOLUTE MONOCYTES (AUTO) 0.5 10^3/uL (0.1-1.4); ABSOLUTE NEUT (AUTO) 6.2 10^3/uL (1.7-8.2); BASOPHILS % (AUTO) 0.3 % (0-2); EOSINOPHILS % (AUTO) 1.5 % (0-6); HEMATOCRIT 26.7 % (36.0-47.0); HEMOGLOBIN 8.7 g/dL (12.0-15.5); LYMPHOCYTES % (AUTO) 18.7 % (13-45); MEAN CORPUSCULAR HEMOGLOBIN 25.9 pg (27.0-33.4); MEAN CORPUSCULAR HGB CONC 32.4 g/dL (32.0-36.0); MEAN CORPUSCULAR VOLUME 80 fl (80-97); MONOCYTES % (AUTO) 5.6 % (3-13); PLATELET COUNT 269 10^3/uL (150-450); RED BLOOD COUNT 3.34 10^6/uL (3.72-5.28); RED CELL DISTRIBUTION WIDTH 17.1 % (11.5-14.0); SEGMENTED NEUTROPHILS % (AUTO) 73.9 % (42-78); TOTAL CELLS COUNTED % (AUTO) 100 %; WHITE BLOOD COUNT 8.4 10^3/uL (4.0-10.5)
[2018-03-16 15:52] LABS: INTERNATIONAL RATION (INR) 1.02; PROTHROMBIN TIME 13.9 SEC (11.4-15.4)
[2018-03-16 15:58] LABS: ALANINE AMINOTRANSFERASE 22 U/L (9-52); ALBUMIN 3.6 g/dL (3.5-5.0); ALKALINE PHOSPHATASE 246 U/L (38-126); ANION GAP 8 (5-19); ASPARTATE AMINO TRANSFERASE 19 U/L (14-36); BILIRUBIN,DIRECT 0.4 mg/dL (0.0-0.4); BILIRUBIN,TOTAL 0.4 mg/dL (0.2-1.3); BLOOD UREA NITROGEN 10 mg/dL (7-20); CALCIUM 9.4 mg/dL (8.4-10.2); CARBON DIOXIDE 32 mmol/L (22-30); CHLORIDE 102 mmol/L (98-107); CREATINE KINASE 47 U/L (30-135); GLUCOSE 73 mg/dL (75-110); POTASSIUM 3.2 mmol/L (3.6-5.0); TOTAL PROTEIN 7.6 g/dL (6.3-8.2)
[2018-03-16 16:10] LABS: CREATINE KINASE MB < 0.22 ng/mL (<4.55); TROPONIN I < 0.012 ng/mL
--- NOTE | 2018-03-16 17:44 | RADIOLOGY REPORT (SQ) ---
EXAM DESCRIPTION: CHEST SINGLE VIEW COMPLETED DATE/TIME: 03/16/2018 4:20 pm REASON FOR STUDY: cp COMPARISON: 01/10/2018 TECHNIQUE: Single frontal radiographic view of the chest acquired. NUMBER OF VIEWS: One view. LIMITATIONS: None. FINDINGS: LUNGS AND PLEURA: No pneumothorax. No consolidation or pleural effusion. MEDIASTINUM AND HILAR STRUCTURES: Stable. HEART AND VASCULAR STRUCTURES: Stable cardiomegaly. BONES: No acute findings. HARDWARE: Right-sided central venous catheter, stable. OTHER: No other significant finding. IMPRESSION: NO ACUTE FINDINGS. TECHNICAL DOCUMENTATION: JOB ID: [id number] [id number] [employer]- All Rights Reserved Reading location - IP/workstation name: [email or web address]
[2018-03-16] MEDS ORDERED: POTASSIUM CHLORIDE 20 MEQ/15 ML UDCUP PO ONE (17:51)
[2018-03-16] MEDS ORDERED: DEXTROSE 40% GEL 15 GM TUBE PO PRN ×2 (19:19)
[2018-03-16] MEDS ORDERED: GLUCAGON,HUMAN RECOMB 1 MG INJ IM PRN (19:19)
[2018-03-16] MEDS ORDERED: DEXTROSE 50%-WATER 25 GM/50 ML DISP.SYRIN IV PRN ×2 (19:19)
[2018-03-16] MEDS ORDERED: IPRATROPIUM/ALBUTEROL 0.5-2.5 MG/3 ML AMPUL NEB PRN (19:20)
[2018-03-16] MEDS ORDERED: POTASSIUM CHLORIDE 10 MEQ CAPSULE.ER PO ONE ×2 (20:00→22:33)
--- NOTE | 2018-03-16 20:06 | PDOC H&P ---
History of Present Illness Admission Date/PCP: 03/16/18 18:25 [facility] Patient complains of: chest pain History of Present Illness: SANTOS NAVARRO is a 57 year old female with a past medical history of COPD and asthma , on 2.5 L of home oxygen, CKD 3 which appears to have recovered, MARIOLA on CPAP, congestive heart failure, coronary artery disease with 2 prior stenting in 2001 , hypertension, peripheral vascular disease and insulin-dependent diabetes mellitus who came in with chest pain. Patient says that she was just sitting at home when she developed sharp midsternal chest pain, nonradiating, a 5/10 intensity, intermittent. She denies any shortness of breath, diaphoresis, dizziness, nausea or vomiting. Patient denies any recent travel. Chest pain is reproducible on palpation of the midsternal area. Patient denies any cough, cold, fever or chills. Patient is being admitted for chest pain to rule out ACS. Initial troponin is normal. EKG shows first-degree AV block with no acute ST-T wave changes. Patient also complains that she has been having worsening pain and swelling of both legs in the past 4 weeks. Past Medical History Cardiac Medical History: Reports: Congestive Heart Failure, Coronary Artery Disease, Myocardial Infarction - 2 STENTS, Hyperlipidema, Hypertension, Peripheral Vascular Disease Denies: Heart Murmur Pulmonary Medical History: Reports: Asthma, Bronchitis, Chronic Obstructive Pulmonary Disease (COPD) - WEARS 2 LNC 24HRS/DAY, Sleep Apnea Denies: Pneumonia, Respiratory Failure, Tuberculosis Neurological Medical History: Reports: Migraine Denies: Seizures Endocrine Medical History: Reports: Diabetes Mellitus Type 2, Hyperthyroidism, Hypothyroidism Renal/ Medical History: Reports: End Stage Renal Disease - Stage IV, no dialysis yet Malignancy Medical History: GI Medical History: Reports: Gastroesophageal Reflux Disease Musculoskeltal Medical History: Reports: Fibromyalgia Denies: Arthritis Psychiatric Medical History: Reports: Bipolar Disorder, Depression, Post Traumatic Stress Disorder Hematology: Denies: Anemia, Hemophilia, Sickle Cell Disease, Bleeding Tendencies Infectious Medical History: Past Surgical History Past Surgical History: Reports: Cardiac Catheterization, Section - x2, Coronary Artery Bypass Graft, Coronary Stent - x2, Hysterectomy, Orthopedic Surgery, Tubal Ligation, Other - multiple colonoscopies for lower GI bleed Denies: Amputation Social History Smoking Status: Unknown if Ever Smoked Frequency of Alcohol Use: None Hx Recreational Drug Use: No Drugs: None Hx Prescription Drug Abuse: No Family History Family History: None, Hypertension Parental Family History Reviewed: Yes - no premature CAD Children Family History Reviewed: No Sibling(s) Family History Reviewed.: No Medication/Allergy Home Medications: Albuterol Sulfate [Proair HFA Inhalation Aerosol 8.5 gm MDI] 2 puff IH Q4HP PRN 01/10/18 Amitriptyline HCl [Elavil 150 mg Tablet] 150 mg PO DAILY 01/10/18 Aripiprazole [Abilify 30 mg Tablet] 15 mg PO Q12 01/10/18 Benztropine Mesylate [Cogentin 1 mg Tablet] 1 mg PO Q12 01/10/18 Budesonide/Formoterol Fumarate [Symbicort HFA 160-4.5 mcg Inhaler 6 gm] 2 puff IH Q12 01/10/18 Docusate Sodium [Colace 100 mg Capsule] 100 mg PO BIDP PRN 01/10/18 Duloxetine HCl [Cymbalta] 60 mg PO Q12 01/10/18 Furosemide [Lasix 40 mg Tablet] 40 mg PO BID 01/10/18 Gabapentin [Neurontin 300 mg Capsule] 300 mg PO Q8 01/10/18 Insulin Glargine,Hum.rec.anlog [Lantus Solostar] 55 units SQ QAM 01/10/18 Insulin Glargine,Hum.rec.anlog [Lantus Solostar] 65 units SQ QHS 01/10/18 Insulin Lispro [Humalog Kwikpen U-100] 0 units SQ .PERSLIDINGSCALE 01/10/18 Lactulose [Constulose 10 gm/15 mL Oral Solution] 15 ml PO DAILYP PRN 01/10/18 Lactulose [Kristalose 10 gm Packet] 30 gm PO DAILY 01/10/18 Levothyroxine Sodium [Synthroid] 50 mcg PO Q6AM 01/10/18 Liraglutide [Victoza 2-Armando] 1.8 mg SQ DAILY 01/10/18 Magnesium Oxide [Mag-Ox 400 mg Tablet] 400 mg PO Q12 01/10/18 Methocarbamol [Robaxin 500 mg Tablet] 500 mg PO TIDP PRN 01/10/18 Naloxegol Oxalate [Movantik 25 mg Tablet] 25 mg PO QAM 01/10/18 Nitroglycerin [Nitro-Dur 5 mg (0.2 mg/Hr) Transdermal Patch] 0.2 mg TD DAILY Omeprazole 40 mg PO Q12 01/10/18 Oxycodone HCl/Acetaminophen [Percocet 10-325 mg Tablet] 1 tab PO Q8HP PRN Saxagliptin HCl [Onglyza] 2.5 mg PO DAILY 01/10/18 Simvastatin [Zocor 20 mg Tablet] 20 mg PO WSUPPER 01/10/18 Trazodone HCl [Desyrel] 300 mg PO QHS 01/10/18 Bupropion HCl [Wellbutrin Xl 150 mg 24hr Tablet] 150 mg PO QHS 03/16/18 Ferrous Sulfate [Feosol 325 mg Tablet] 325 mg PO BID 03/16/18 Irbesartan [Avapro] 150 mg PO DAILY 03/16/18 Melatonin [Melatonin 5 mg Tablet] 5 mg PO QHS 03/16/18 Meclizine HCl 25 mg PO TID PRN 03/17/18 Allergies/Adverse Reactions: cephalexin monohydrate [From Keflex] Allergy (Unknown, Verified 03/16/18 15:29) codeine [Codeine] Allergy (Unknown, Verified 03/16/18 15:29) dicyclomine HCl [From Bentyl] Allergy (Unknown, Verified 03/16/18 15:29) hydrocodone bitartrate [From Vicodin] Allergy (Unknown, Verified 03/16/18 15:29) meloxicam [From Mobic] Allergy (Unknown, Verified 03/16/18 15:29) meperidine HCl [From Demerol (PF)] Allergy (Unknown, Verified 03/16/18 15:29) morphine [Morphine] Allergy (Unknown, Verified 03/16/18 15:29) naproxen sodium [From Naprelan CR Dosepak] Allergy (Unknown, Verified 03/16/18 15:29) nitrofurantoin [From Macrobid] Allergy (Unknown, Verified 03/16/18 15:29) pantoprazole sodium [From Protonix] Allergy (Unknown, Verified 03/16/18 15:29) Penicillins Allergy (Unknown, Verified 03/16/18 15:29) Sulfa (Sulfonamide Antibiotics) Allergy (Unknown, Verified 03/16/18 15:29) aspirin Allergy (Verified 03/16/18 15:29) lamotrigine [From Lamictal] Allergy (Verified 03/16/18 15:29) rash Review of Systems All systems: reviewed and no additional remarkable complaints except as stated - As mentioned in HPI Physical Exam Vital Signs: Temp Pulse Resp BP Pulse Ox 97.9 F 20 128/64 H 98 03/16/18 15:30 03/16/18 17:10 03/16/18 16:06 03/16/18 17:10 General appearance: PRESENT: no acute distress, obese Head exam: PRESENT: atraumatic, normocephalic Eye exam: PRESENT: conjunctiva pink, EOMI, PERRLA. ABSENT: scleral icterus Ear exam: PRESENT: normal external ear exam Neck exam: ABSENT: carotid bruit, JVD, lymphadenopathy, thyromegaly Respiratory exam: PRESENT: clear to auscultation christine. ABSENT: rales, rhonchi, wheezes Cardiovascular exam: PRESENT: RRR, other - Chest pain is reproducible on palpation of the midsternal area. ABSENT: diastolic murmur, rubs, systolic murmur GI/Abdominal exam: PRESENT: normal bowel sounds, soft. ABSENT: distended, guarding, mass, organolmegaly, rebound, tenderness Rectal exam: PRESENT: deferred Extremities exam: PRESENT: +2 edema, other - Note of hyperpigmentation on bilateral legs, a full dorsalis pedis pulses, no calf tenderness Neurological exam: PRESENT: alert, awake, oriented to person, oriented to place , oriented to time, oriented to situation, CN II-XII grossly intact. ABSENT: motor sensory deficit Results Impressions: Chest X-Ray 03/16/18 15:10 IMPRESSION: NO ACUTE FINDINGS. Assessment & Plan - Diagnosis (1) Chest pain Qualifiers: Chest pain type: unspecified Qualified Code(s): R07.9 - Chest pain, unspecified Is this a current diagnosis for this admission?: Yes Plan: Atypical chest pain. Patient's chest pain is reproducible on examination however due to her multiple comorbidities and risk factors including CAD with prior stenting, diabetes mellitus, CHF and PVD, patient will be admitted to rule out ACS. Initial troponin is normal. Initial EKG shows first-degree AV block with no acute ST-T wave changes concerning for ischemia or NH. We will continue to cycle cardiac enzymes and EKGs. Patient has allergy to aspirin. She is not on any antiplatelet. Will start patient on Plavix. Continue statin. (2) Insulin dependent diabetes mellitus Is this a current diagnosis for this admission?: Yes Plan: Patient takes Lantus 55 units in the morning and 65 units at night along with Victoza and sliding scale Humalog. Noted sugar and a BMP which is low at 73. Will cover patient with sliding scale for now. Continue to check sugars every 6 hours. Will adjust insulin regimen depending on her sugars overnight. (3) COPD (chronic obstructive pulmonary disease) Is this a current diagnosis for this admission?: Yes Plan: Stable and not in exacerbation. Patient uses 2.5 L of home O2. Breathing treatments with DuoNeb every 6 as needed. (4) Chronic systolic heart failure Is this a current diagnosis for this admission?: Yes Plan: Stable and not in exacerbation. Will resume home Lasix and losartan. - Time Time Spent: 30 to 50 Minutes
[2018-03-16] MEDS ORDERED: (PENDING PHARMACY ID) (Trazodone Hcl [Desyrel] 300 MG) PO SCH (22:00)
[2018-03-16] MEDS ORDERED: ARIPIPRAZOLE 5 MG TABLET PO ONE (22:30)
[2018-03-16] MEDS: HEPARIN SOD (PORCINE) 5,000 UNIT/ML 1 ML SYRINGE SUBCUT SCH (22:39)
[2018-03-16] MEDS: ATORVASTATIN CALCIUM 40 MG TABLET PO SCH (22:39)
[2018-03-16] MEDS: CLOPIDOGREL BISULFATE 75 MG TABLET PO SCH (22:39)
[2018-03-16] MEDS: MAGNESIUM OXIDE 400 MG TABLET PO SCH (22:40)
[2018-03-16] MEDS: GABAPENTIN 300 MG CAPSULE PO SCH (22:40)
[2018-03-16] MEDS: AMITRIPTYLINE HCL 75 MG TABLET PO SCH (22:53)
[2018-03-16] MEDS: TRAZODONE HCL 50 MG TABLET ONE ×2 (23:37→23:47)
[2018-03-16] MEDS: TRAZODONE HCL 50 MG TABLET PO SCH (23:50)
--- NOTE | 2018-03-16 23:54 | EKG REPORT ---
SEVERITY:- BORDERLINE ECG - SINUS RHYTHM BORDERLINE T WAVE ABNORMALITIES : Confirmed by: Maurice Nieto 16-Mar-2018 23:54:02
--- NOTE | 2018-03-16 23:55 | EKG REPORT ---
SEVERITY:- ABNORMAL ECG - SINUS RHYTHM FIRST DEGREE AV BLOCK BORDERLINE T WAVE ABNORMALITIES : Confirmed by: Maurice Nieto 16-Mar-2018 23:54:14
[2018-03-17] MEDS: LEVOTHYROXINE SODIUM 0.05 MG TABLET PO SCH (06:50)
[2018-03-17] MEDS: HEPARIN SOD (PORCINE) 5,000 UNIT/ML 1 ML SYRINGE SUBCUT SCH ×3 (06:50→21:44)
[2018-03-17] MEDS: GABAPENTIN 300 MG CAPSULE PO SCH ×3 (06:50→21:46)
[2018-03-17] MEDS ORDERED: (PENDING PHARMACY ID) (Aripiprazole [Abilify 30 Mg Tablet] 15 MG) PO SCH (10:00)
[2018-03-17] MEDS ORDERED: AMITRIPTYLINE HCL 150 MG PO SCH (10:00)
[2018-03-17] MEDS ORDERED: LACTULOSE 30 GM PO SCH (10:00)
[2018-03-17] MEDS: LACTULOSE SYRUP 20 GM/30 ML UDCUP PO SCH (10:58)
[2018-03-17] MEDS: CLOPIDOGREL BISULFATE 75 MG TABLET PO SCH (10:58)
[2018-03-17] MEDS: VALSARTAN 160 MG TABLET PO SCH (10:58)
[2018-03-17] MEDS: MAGNESIUM OXIDE 400 MG TABLET PO SCH ×2 (10:59→21:46)
[2018-03-17] MEDS: ARIPIPRAZOLE 5 MG TABLET PO SCH ×2 (11:02→17:09)
[2018-03-17] MEDS ORDERED: MECLIZINE HCL 25 MG TABLET PO PRN (11:05)
[2018-03-17] MEDS: OXYCODONE-ACETAMINOPHEN 5-325 MG TABLET PO PRN ×2 (12:12→21:45)
[2018-03-17 15:38] LABS: ANION GAP 10 (5-19); BLOOD UREA NITROGEN 9 mg/dL (7-20); CALCIUM 9.4 mg/dL (8.4-10.2); CARBON DIOXIDE 31 mmol/L (22-30); CHLORIDE 100 mmol/L (98-107); GLUCOSE 156 mg/dL (75-110); POTASSIUM 3.4 mmol/L (3.6-5.0); SODIUM 141.1 mmol/L (137-145)
[2018-03-17] MEDS: INSULIN LISPRO 100 UNIT/ML 3 ML VIAL SUBCUT PRN (17:13)
--- NOTE | 2018-03-17 21:20 | EKG REPORT ---
SEVERITY:- BORDERLINE ECG - SINUS RHYTHM BORDERLINE T WAVE ABNORMALITIES : Confirmed by: Maurice Nieto 17-Mar-2018 21:19:37
[2018-03-17] MEDS: METOPROLOL TARTRATE 25 MG TABLET PO SCH (21:44)
[2018-03-17] MEDS: AMITRIPTYLINE HCL 75 MG TABLET PO SCH (21:45)
[2018-03-17] MEDS: ATORVASTATIN CALCIUM 40 MG TABLET PO SCH (21:46)
[2018-03-17] MEDS: TRAZODONE HCL 50 MG TABLET PO SCH (21:46)
[2018-03-17] MEDS ORDERED: TRAZODONE HCL 50 MG TABLET PO SCH (22:00)
[2018-03-18] MEDS: HEPARIN SOD (PORCINE) 5,000 UNIT/ML 1 ML SYRINGE SUBCUT SCH ×2 (06:20→14:35)
[2018-03-18] MEDS: GABAPENTIN 300 MG CAPSULE PO SCH ×2 (06:20→14:34)
[2018-03-18] MEDS: LEVOTHYROXINE SODIUM 0.05 MG TABLET PO SCH (06:20)
[2018-03-18] MEDS: LACTULOSE SYRUP 20 GM/30 ML UDCUP PO SCH (09:12)
[2018-03-18] MEDS: INSULIN LISPRO 100 UNIT/ML 3 ML VIAL SUBCUT PRN (09:14)
[2018-03-18] MEDS: MAGNESIUM OXIDE 400 MG TABLET PO SCH (09:16)
[2018-03-18] MEDS: METOPROLOL TARTRATE 25 MG TABLET PO SCH (09:16)
[2018-03-18] MEDS: ARIPIPRAZOLE 5 MG TABLET PO SCH ×2 (09:17→18:30)
[2018-03-18] MEDS: VALSARTAN 160 MG TABLET PO SCH (09:17)
[2018-03-18] MEDS: CLOPIDOGREL BISULFATE 75 MG TABLET PO SCH (09:17)
[2018-03-18] MEDS ORDERED: NITROGLYCERIN 5 MG (0.2 MG/HR) PATCH.TD24 ONE (09:50)
[2018-03-18] MEDS ORDERED: NITROGLYCERIN 5 MG (0.2 MG/HR) PATCH.TD24 TD SCH (10:00)
--- NOTE | 2018-03-18 10:59 | PDOC PROGRESS REPORT ---
Subjective Progress Note for:: 03/17/18 Subjective:: SANTOS NAVARRO is a 57 year old female with a past medical history of COPD and asthma , on 2.5 L of home oxygen, CKD 3 which appears to have recovered, MARIOLA on CPAP, congestive heart failure, coronary artery disease with 2 prior stenting in 2001 , hypertension, peripheral vascular disease and insulin-dependent diabetes mellitus who came in with atypical chest pain. Chest pain is reproducible on palpation of the midsternal area. She denies SOB, dizziness or palpitations. Patient also complains that she has been having worsening pain and swelling of both legs in the past 4 weeks. Reason For Visit: CHEST PAIN,R/O ACS Physical Exam Vital Signs: Temp Pulse Resp BP Pulse Ox 97.5 F 80 28 H 118/71 100 03/17/18 12:00 03/17/18 12:00 03/17/18 12:00 03/17/18 12:00 03/17/18 12:00 General appearance: PRESENT: no acute distress, obese Head exam: PRESENT: atraumatic, normocephalic Eye exam: PRESENT: conjunctiva pink, EOMI, PERRLA. ABSENT: scleral icterus Ear exam: PRESENT: normal external ear exam Neck exam: ABSENT: carotid bruit, JVD, lymphadenopathy, thyromegaly Respiratory exam: PRESENT: clear to auscultation christine. ABSENT: rales, rhonchi, wheezes Cardiovascular exam: PRESENT: RRR, other - Midsternal area mill tender on palpation. ABSENT: diastolic murmur, rubs, systolic murmur Pulses: PRESENT: normal dorsalis pedis pul GI/Abdominal exam: PRESENT: normal bowel sounds, soft. ABSENT: guarding, mass, organolmegaly, rebound, tenderness Rectal exam: PRESENT: deferred Extremities exam: PRESENT: other - +3 pedal edema, note of hyperpigmentation in both legs regularly and the distal aspects, good dorsalis pedis pulses Neurological exam: PRESENT: alert, awake, oriented to person, oriented to place , oriented to time, oriented to situation, CN II-XII grossly intact. ABSENT: motor sensory deficit Results Laboratory Results: 03/16/18 03/17/18 19:19 10:25 Troponin I < 0.012 < 0.012 Impressions: Chest X-Ray 03/16/18 15:10 IMPRESSION: NO ACUTE FINDINGS. Assessment & Plan - Diagnosis (1) Chest pain Qualifiers: Chest pain type: unspecified Qualified Code(s): R07.9 - Chest pain, unspecified Is this a current diagnosis for this admission?: Yes Plan: Atypical chest pain. Patient's chest pain is reproducible on examination however due to her multiple comorbidities and risk factors including CAD with prior stenting, diabetes mellitus, CHF and PVD, patient was admitted to rule out ACS. Serial troponins have all been normal. Serial EKGs have been unremarkable also aside from first-degree AV block. Patient's chest pain is likely musculoskeletal in origin. Patient has allergy to aspirin. She is not on any antiplatelet. Started on Plavix on this admission. Continue statin. (2) Insulin dependent diabetes mellitus Is this a current diagnosis for this admission?: Yes Plan: Patient takes Lantus 55 units in the morning and 65 units at night along with Victoza and sliding scale Humalog. Initial BMP showed low glucose at 73. Noted sugars overnight which have been running in the 100-140s. He has not received anything from the sliding scale yet, will continue to monitor blood sugars and regimen appropriately. (3) COPD (chronic obstructive pulmonary disease) Is this a current diagnosis for this admission?: Yes Plan: Stable and not in exacerbation. Patient uses 2.5 L of home O2. Breathing treatments with DuoNeb every 6 as needed. (4) Chronic systolic heart failure Is this a current diagnosis for this admission?: Yes Plan: Stable and not in exacerbation. Will resume home Lasix and irbesartan. Will also add lopressor. (5) Leg pain, bilateral Is this a current diagnosis for this admission?: Yes Plan: Patient appears to have chronic bipedal edema. She says she has been having worsening leg pain in the past 4 weeks. She had an arterial duplex for her peripheral vascular disease done on 04/2017 which showed 20-40% right femoral stenosis with no other significant obstruction. She has good dorsalis pedis pulses. Patient does have morbid obesity and is slightly immobile at home. Will check an ultrasound duplex to rule out DVT. - Time Time Spent with patient: 25-34 minutes
[2018-03-18 14:18] VITALS: BP 124/67
[2018-03-18] MEDS ORDERED: POTASSIUM CHLORIDE 10 MEQ CAPSULE.ER PO ONE (14:25)
--- NOTE | 2018-03-18 18:23 | PDOC DISCHARGE SUMMARY ---
General - Admit/Disc Date/PCP Admission Date/Primary Care Provider: 03/16/18 18:25 JASSONJENNIFER MARTINI Discharge Date: 03/18/18 - Discharge Diagnosis (1) Chest pain Is this a current diagnosis for this admission?: Yes (2) Insulin dependent diabetes mellitus Is this a current diagnosis for this admission?: Yes (3) COPD (chronic obstructive pulmonary disease) Is this a current diagnosis for this admission?: Yes (4) Chronic systolic heart failure Is this a current diagnosis for this admission?: Yes (5) Leg pain, bilateral Is this a current diagnosis for this admission?: Yes - Additional Information Resuscitation Status: Full Code Discharge Diet: Diabetic Discharge Activity: Activity As Tolerated Prescriptions: Atorvastatin Calcium [Lipitor 40 mg Tablet] 40 mg PO QHS #30 tablet Clopidogrel Bisulfate [Plavix 75 mg Tablet] 75 mg PO DAILY #30 tablet Home Medications: Albuterol Sulfate [Proair HFA Inhalation Aerosol 8.5 gm MDI] 2 puff IH Q4HP PRN 01/10/18 Amitriptyline HCl [Elavil 150 mg Tablet] 150 mg PO DAILY 01/10/18 Aripiprazole [Abilify 30 mg Tablet] 15 mg PO Q12 01/10/18 Benztropine Mesylate [Cogentin 1 mg Tablet] 1 mg PO Q12 01/10/18 Budesonide/Formoterol Fumarate [Symbicort HFA 160-4.5 mcg Inhaler 6 gm] 2 puff IH Q12 01/10/18 Docusate Sodium [Colace 100 mg Capsule] 100 mg PO BIDP PRN 01/10/18 Duloxetine HCl [Cymbalta] 60 mg PO Q12 01/10/18 Furosemide [Lasix 40 mg Tablet] 40 mg PO BID 01/10/18 Gabapentin [Neurontin 300 mg Capsule] 300 mg PO Q8 01/10/18 Insulin Glargine,Hum.rec.anlog [Lantus Solostar] 55 units SQ QAM 01/10/18 Insulin Glargine,Hum.rec.anlog [Lantus Solostar] 65 units SQ QHS 01/10/18 Insulin Lispro [Humalog Kwikpen U-100] 0 units SQ .PERSLIDINGSCALE 01/10/18 Lactulose [Constulose 10 gm/15 mL Oral Solution] 15 ml PO DAILYP PRN 01/10/18 Lactulose [Kristalose 10 gm Packet] 30 gm PO DAILY 01/10/18 Levothyroxine Sodium [Synthroid] 50 mcg PO Q6AM 01/10/18 Liraglutide [Victoza 2-Armando] 1.8 mg SQ DAILY 01/10/18 Magnesium Oxide [Mag-Ox 400 mg Tablet] 400 mg PO Q12 01/10/18 Methocarbamol [Robaxin 500 mg Tablet] 500 mg PO TIDP PRN 01/10/18 Naloxegol Oxalate [Movantik 25 mg Tablet] 25 mg PO QAM 01/10/18 Nitroglycerin [Nitro-Dur 5 mg (0.2 mg/Hr) Transdermal Patch] 0.2 mg TD DAILY Omeprazole 40 mg PO Q12 01/10/18 Oxycodone HCl/Acetaminophen [Percocet 10-325 mg Tablet] 1 tab PO Q8HP PRN Saxagliptin HCl [Onglyza] 2.5 mg PO DAILY 01/10/18 Bupropion HCl [Wellbutrin Xl 150 mg 24hr Tablet] 150 mg PO QHS 03/16/18 Ferrous Sulfate [Feosol 325 mg Tablet] 325 mg PO BID 03/16/18 Irbesartan [Avapro] 150 mg PO DAILY 03/16/18 Melatonin [Melatonin 5 mg Tablet] 5 mg PO QHS 03/16/18 Meclizine HCl 25 mg PO TID PRN 03/17/18 Atorvastatin Calcium [Lipitor 40 mg Tablet] 40 mg PO QHS #30 tablet 03/18/18 Clopidogrel Bisulfate [Plavix 75 mg Tablet] 75 mg PO DAILY #30 tablet 03/18/18 History of Present Illness History of Present Illness: SANTOS NAVARRO is a 57 year old female with a past medical history of COPD and asthma , on 2.5 L of home oxygen, CKD 3 which appears to have recovered, MARIOLA on CPAP, congestive heart failure, coronary artery disease with 2 prior stenting in 2001 , hypertension, peripheral vascular disease and insulin-dependent diabetes mellitus who came in with chest pain. Patient says that she was just sitting at home when she developed sharp midsternal chest pain, nonradiating, a 5/10 intensity, intermittent. She denies any shortness of breath, diaphoresis, dizziness, nausea or vomiting. Patient denies any recent travel. Chest pain is reproducible on palpation of the midsternal area. Patient denies any cough, cold, fever or chills. Patient is being admitted for chest pain to rule out ACS. Initial troponin is normal. EKG shows first-degree AV block with no acute ST-T wave changes. Patient also complains that she has been having worsening pain and swelling of both legs in the past 4 weeks. Hospital Course Hospital Course: Patient was admitted because of a typical chest pain. Patient's chest pain was consistently reproducible on palpation. However due to her multiple comorbidities and cardiac risk factors, she was admitted to rule out acute coronary syndrome. Serial troponins and EKGs have been unremarkable. On day of discharge, patient did say her chest pain has resolved although she still have some mild tenderness on palpation of the midsternal area. Patient did complain of bilateral leg pain. Because of her morbid obesity and relative immobility sensation at home, an ultrasound duplex of the lower extremities were ordered to rule out DVT. However patient says that she wants to go home today as she needs to check if her house is okay as she heard there has been a lot of lifting around the neighborhood. Discussed the risk of not pursuing a venous duplex, patient verbalized understanding and says that she understands that we need to rule out a DVT but regardless she will go home today ASHIA. Upon reevaluation of patient's home medication, it was noted that she is on four psychotropics (trazodone, aripiprazole, amitriptyline and bupropion) which poses a very high risk for developing serotonin syndrome. Discontinued trazodone and discussed this with patient and was made aware of the risks of being on four psychotropics. She verbalized understanding. Physical Exam Vital Signs: Temp Pulse Resp BP Pulse Ox 97.4 F 83 16 124/67 100 03/18/18 14:07 03/18/18 14:07 03/18/18 14:07 03/18/18 14:07 03/18/18 14:07 Intake & Output 03/17/18 03/18/18 03/19/18 06:59 06:59 06:59 Intake Total 240 1102 480 Balance 240 1102 480 General appearance: PRESENT: no acute distress, obese Head exam: PRESENT: atraumatic, normocephalic Eye exam: PRESENT: conjunctiva pink, EOMI, PERRLA. ABSENT: scleral icterus Ear exam: PRESENT: normal external ear exam Mouth exam: PRESENT: moist, tongue midline Neck exam: ABSENT: carotid bruit, JVD, lymphadenopathy, thyromegaly Respiratory exam: PRESENT: clear to auscultation christine. ABSENT: rales, rhonchi, wheezes Cardiovascular exam: PRESENT: RRR Pulses: PRESENT: normal dorsalis pedis pul GI/Abdominal exam: PRESENT: normal bowel sounds, soft. ABSENT: distended, guarding, mass, organolmegaly, rebound, tenderness Rectal exam: PRESENT: deferred Neurological exam: PRESENT: alert, awake, oriented to person, oriented to place , oriented to time, oriented to situation, CN II-XII grossly intact. ABSENT: motor sensory deficit Results Laboratory Results: 03/17/18 10:25 03/16/18 03/17/18 19:19 10:25 Troponin I < 0.012 < 0.012 Impressions: Chest X-Ray 03/16/18 15:10 IMPRESSION: NO ACUTE FINDINGS. Qualifiers - * PATIENT BEING DISCHARGED WITH ANY OF THE FOLLOWING DIAGNOSIS: No
== END 2018-03-18 18:54 | disposition home health service (06) ==
LOC: ER 15:03 → INTOOBSV 18:25 → EH 18:25 → 4N 20:22
PROVIDERS: ADMIT Internal Medicine; ATTEND Internal Medicine
DX: R07.89 Other chest pain (principal); E11.22 Type 2 diabetes mellitus with diabetic chronic kidney disease; I13.0 Hypertensive heart and chronic kidney disease with heart failure and stage 1 through stage 4 chronic kidney disease, or unspecified chronic kidney disease; N18.3 Chronic kidney disease, stage 3 (moderate); I50.22 Chronic systolic (congestive) heart failure; M79.605 Pain in left leg; M79.604 Pain in right leg; E11.51 Type 2 diabetes mellitus with diabetic peripheral angiopathy without gangrene; J44.9 Chronic obstructive pulmonary disease, unspecified; I25.10 Atherosclerotic heart disease of native coronary artery without angina pectoris; G47.33 Obstructive sleep apnea (adult) (pediatric); I44.0 Atrioventricular block, first degree; E66.01 Morbid (severe) obesity due to excess calories; L81.8 Other specified disorders of pigmentation; E11.649 Type 2 diabetes mellitus with hypoglycemia without coma; Z68.43 Body mass index [BMI] 50.0-59.9, adult; I25.2 Old myocardial infarction; Z95.5 Presence of coronary angioplasty implant and graft; Z82.49 Family history of ischemic heart disease and other diseases of the circulatory system; Z79.4 Long term (current) use of insulin; Z79.899 Other long term (current) drug therapy; Z79.02 Long term (current) use of antithrombotics/antiplatelets; Z99.81 Dependence on supplemental oxygen; Z95.1 Presence of aortocoronary bypass graft; Z74.09 Other reduced mobility
CPT/HCPCS: 93005 ×3; 36415 ×2; 82553; 82550; 83735; 85025; 85610; 85730; 80048; 80053; 84484 ×2; 85379; 83880; 71045; 93010 ×2; 94660 ×2; A9270 ×30; J1644 ×3; J3490; 99291; J1815

== ENCOUNTER 2018-05-24 16:05 | Emergency (ER) | payer MEDICARE, MEDICAID ==
--- NOTE | 2018-05-24 16:37 | ER Document Report ---
ED General - General Chief Complaint: Nausea/Vomiting Stated Complaint: NAUSEA/VOMITING Time Seen by Provider: 05/24/18 16:22 Notes: Patinet to ther ED via ems for eval of N/V. One episode of vomiting. No cp. Hx of chf. No abd pain. Patient states that she knows why she vomited. States that she had some "bad pancho greens". When asked why she knows it was bad pancho greens she said because she saw the pancho greens in her poop so they must be bad. TRAVEL OUTSIDE OF THE [place] IN LAST 30 DAYS: No - HPI Onset: Just prior to arrival Onset/Duration: Sudden, Better Quality of pain: No pain Severity: None Pain Level: Denies Associated symptoms: Vomiting - Related Data Allergies/Adverse Reactions: cephalexin monohydrate [From Keflex] Allergy (Unknown, Verified 03/16/18 15:29) codeine [Codeine] Allergy (Unknown, Verified 03/16/18 15:29) dicyclomine HCl [From Bentyl] Allergy (Unknown, Verified 03/16/18 15:29) hydrocodone bitartrate [From Vicodin] Allergy (Unknown, Verified 03/16/18 15:29) meloxicam [From Mobic] Allergy (Unknown, Verified 03/16/18 15:29) meperidine HCl [From Demerol (PF)] Allergy (Unknown, Verified 03/16/18 15:29) morphine [Morphine] Allergy (Unknown, Verified 03/16/18 15:29) naproxen sodium [From Naprelan CR Dosepak] Allergy (Unknown, Verified 03/16/18 15:29) nitrofurantoin [From Macrobid] Allergy (Unknown, Verified 03/16/18 15:29) pantoprazole sodium [From Protonix] Allergy (Unknown, Verified 03/16/18 15:29) Penicillins Allergy (Unknown, Verified 03/16/18 15:29) Sulfa (Sulfonamide Antibiotics) Allergy (Unknown, Verified 03/16/18 15:29) aspirin Allergy (Verified 03/16/18 15:29) lamotrigine [From Lamictal] Allergy (Verified 03/16/18 15:29) rash Past Medical History - General Information source: Patient - Social History Smoking Status: Never Smoker Chew tobacco use (# tins/day): No Frequency of alcohol use: None Drug Abuse: None Family History: None, Hypertension - Past Medical History Cardiac Medical History: Reports: Hx Congestive Heart Failure, Hx Coronary Artery Disease, Hx Heart Attack - 2 STENTS, Hx Hypercholesterolemia, Hx Hypertension, Hx Peripheral Vascular Disease Denies: Hx Heart Murmur Pulmonary Medical History: Reports: Hx Asthma, Hx Bronchitis, Hx COPD - WEARS 2 LNC 24HRS/DAY, Hx Sleep Apnea Denies: Hx Pneumonia, Hx Respiratory Failure, Hx Tuberculosis Neurological Medical History: Reports: Hx Migraine. Denies: Hx Cerebrovascular Accident, Hx Seizures Endocrine Medical History: Reports: Hx Diabetes Mellitus Type 2, Hx Hyperthyroidism, Hx Hypothyroidism Renal/ Medical History: Reports: Hx End Stage Renal Disease - Stage IV, no dialysis yet, Hx Renal Insufficiency. Denies: Hx Peritoneal Dialysis Malignancy Medical History: GI Medical History: Reports: Hx Gastroesophageal Reflux Disease. Denies: Hx Pancreatitis Musculoskeletal Medical History: Denies Hx Arthritis, Reports Hx Fibromyalgia, Reports Hx Muscle Weakness Psychiatric Medical History: Reports: Hx Bipolar Disorder, Hx Depression, Hx Post Traumatic Stress Disorder, Hx Schizophrenia Traumatic Medical History: Infectious Medical History: Past Surgical History: Reports: Hx Cardiac Catheterization, Hx Section - x2, Hx Coronary Artery Bypass Graft, Hx Coronary Stent - x2, Hx Hysterectomy, Hx Orthopedic Surgery, Hx Tubal Ligation, Other - multiple colonoscopies for lower GI bleed - Immunizations Hx Diphtheria, Pertussis, Tetanus Vaccination: Yes Hx Pneumococcal Vaccination: 04/02/13 Review of Systems - Review of Systems Notes: Constitutional: denies: Chills, Diaphoresis, Fever, Malaise, Weakness EENT: denies: Eye discharge, Blurred vision, Tearing, Double vision, Nose congestion, Nose discharge, Throat swelling, Mouth pain Cardiovascular: denies: Palpitations, Heart racing, Orthopnea, Dyspnea, Chest pain Respiratory: denies: Cough, Hurts to breathe, Wheezing, Shortness of breath Gastrointestinal: denies: Abdominal pain, Diarrhea, Black stools, bright red blood in stool. One episode of vomiting Genitourinary: denies: Burning, Dysuria, Discharge, Frequency, Flank pain, Hematuria Musculoskeletal: denies: Joint pain, Joint swelling, Muscle pain, Muscle stiffness, back pain Hematologic/Lymphatic: denies: Anemia, Easy bleeding, Easy bruising, Blood clots Neurological/Psychological: denies: Confusion, Dementia, Depression, Loss of consciousness Skin: No lesions, no masses, no skin breakdown, no abscesses Physical Exam - Vital signs Vitals: Resp Pulse Ox 18 100 05/24/18 17:00 05/24/18 17:00 Interpretation: Normal - General General appearance: Appears well, Alert - HEENT Head: Normocephalic, Atraumatic Eyes: Normal Pupils: PERRL - Respiratory Respiratory status: No respiratory distress Chest status: Nontender Breath sounds: Normal Chest palpation: Normal - Cardiovascular Rhythm: Regular Heart sounds: Normal auscultation Murmur: No - Abdominal Inspection: Normal Distension: No distension Bowel sounds: Normal Tenderness: Nontender. No: Guarding, Rebound Organomegaly: No organomegaly - Back Back: Normal, Nontender - Extremities General upper extremity: Normal inspection, Nontender, Normal color, Normal ROM , Normal temperature General lower extremity: Normal inspection, Nontender, Edema - Bilateral lower extremity pitting edema chronic in appearance., Normal color, Normal ROM, Normal temperature, Normal weight bearing. No: Erica's sign - Neurological Neuro grossly intact: Yes Cognition: Normal Orientation: AAOx4 [place] Coma Scale Eye Opening: Spontaneous [place] Coma Scale Verbal: Oriented Mary Coma Scale Motor: Obeys Commands [place] Coma Scale Total: 15 Speech: Normal Motor strength normal: LUE, RUE, LLE, RLE Sensory: Normal - Psychological Associated symptoms: Normal affect, Normal mood - Skin Skin Temperature: Warm Skin Moisture: Dry Skin Color: Normal Course - Re-evaluation Re-evalutation: 05/24/18 19:28 Laboratory 05/24/18 05/24/18 05/24/18 16:48 18:15 18:15 WBC 11.9 H RBC 3.62 L Hgb 9.0 L Hct 28.1 L MCV 78 L MCH 25.0 L MCHC 32.2 RDW 20.3 H Plt Count 355 Seg Neutrophils % 84.1 H Lymphocytes % 11.5 L Monocytes % 3.3 Eosinophils % 0.4 Basophils % 0.7 Absolute Neutrophils 10.0 H Absolute Lymphocytes 1.4 Absolute Monocytes 0.4 Absolute Eosinophils 0.0 Absolute Basophils 0.1 Sodium 142.5 Potassium 4.0 Chloride 96 L Carbon Dioxide 35 H Anion Gap 12 BUN 22 H Creatinine 1.06 Est GFR ( Amer) > 60 Est GFR (Non-Af Amer) 53 L Glucose 171 H POC Glucose 159 H Calcium 10.3 H Total Bilirubin 0.3 Direct Bilirubin 0.3 Neonat Total Bilirubin Not Reportable Neonat Direct Bilirubin Not Reportable Neonat Indirect Bili Not Reportable AST 20 ALT 17 Alkaline Phosphatase 255 H Troponin I NT-Pro-B Natriuret Pep Total Protein 8.7 H Albumin 4.4 Lipase 43.6 05/24/18 18:15 WBC RBC Hgb Hct MCV MCH MCHC RDW Plt Count Seg Neutrophils % Lymphocytes % Monocytes % Eosinophils % Basophils % Absolute Neutrophils Absolute Lymphocytes Absolute Monocytes Absolute Eosinophils Absolute Basophils Sodium Potassium Chloride Carbon Dioxide Anion Gap BUN Creatinine Est GFR ( Amer) Est GFR (Non-Af Amer) Glucose POC Glucose Calcium Total Bilirubin Direct Bilirubin Neonat Total Bilirubin Neonat Direct Bilirubin Neonat Indirect Bili AST ALT Alkaline Phosphatase Troponin I < 0.012 NT-Pro-B Natriuret Pep 16 Total Protein Albumin Lipase 05/24/18 19:36 Patient has slightly elevated WBC count but has no tenderness to palpation on the abdomen. Patient initially said she had no abdominal pain and just complained of nausea so I ordered her some Zofran. When the nurse went in to give her the Zofran she said I am not having any nausea I am having abdominal pain and went back and reexamined her and she has no abdominal pain. At this time I am going to give her Percocet and some Zofran in her discharge papers. I have advised her to return if symptoms get worse. - Vital Signs Vital signs: Temp Pulse Resp BP Pulse Ox 27 H 150/88 H 95 05/24/18 19:01 05/24/18 19:01 05/24/18 19:01 - Laboratory Result Diagrams: 05/24/18 18:15 05/24/18 18:15 Laboratory results interpreted by me: 05/24/18 05/24/18 05/24/18 16:48 18:15 18:15 WBC 11.9 H RBC 3.62 L Hgb 9.0 L Hct 28.1 L MCV 78 L MCH 25.0 L RDW 20.3 H Seg Neutrophils % 84.1 H Lymphocytes % 11.5 L Absolute Neutrophils 10.0 H Chloride 96 L Carbon Dioxide 35 H BUN 22 H Est GFR (Non-Af Amer) 53 L Glucose 171 H POC Glucose 159 H Calcium 10.3 H Alkaline Phosphatase 255 H Total Protein 8.7 H - EKG Interpretation by Me EKG shows normal: Sinus rhythm, [place], Intervals, QRS Complexes, ST-T Waves Discharge - Discharge Clinical Impression: Abdominal pain Qualifiers: Abdominal location: generalized Qualified Code(s): R10.84 - Generalized abdominal pain Condition: Good Disposition: HOME, SELF-CARE Instructions: Abdominal Pain ([facility]), Antinausea Medication ([facility]) Referrals: JASSON MARTINI MD [Primary Care Provider] - Follow up as needed
[2018-05-24 18:35] LABS: ABSOLUTE BASOPHILS # (AUTO) 0.1 10^3/uL (0.0-0.2); ABSOLUTE LYMPHOCYTES (AUTO) 1.4 10^3/uL (0.5-4.7); ABSOLUTE MONOCYTES (AUTO) 0.4 10^3/uL (0.1-1.4); BASOPHILS % (AUTO) 0.7 % (0-2); EOSINOPHILS % (AUTO) 0.4 % (0-6); HEMATOCRIT 28.1 % (36.0-47.0); LYMPHOCYTES % (AUTO) 11.5 % (13-45); MEAN CORPUSCULAR HGB CONC 32.2 g/dL (32.0-36.0); MEAN CORPUSCULAR VOLUME 78 fl (80-97); MONOCYTES % (AUTO) 3.3 % (3-13); PLATELET COUNT 355 10^3/uL (150-450); RED BLOOD COUNT 3.62 10^6/uL (3.72-5.28); RED CELL DISTRIBUTION WIDTH 20.3 % (11.5-14.0); SEGMENTED NEUTROPHILS % (AUTO) 84.1 % (42-78); TOTAL CELLS COUNTED % (AUTO) 100 %; WHITE BLOOD COUNT 11.9 10^3/uL (4.0-10.5)
[2018-05-24 18:59] LABS: ALANINE AMINOTRANSFERASE 17 U/L (9-52); ALBUMIN 4.4 g/dL (3.5-5.0); ALKALINE PHOSPHATASE 255 U/L (38-126); ANION GAP 12 (5-19); ASPARTATE AMINO TRANSFERASE 20 U/L (14-36); BILIRUBIN,DIRECT 0.3 mg/dL (0.0-0.4); BILIRUBIN,TOTAL 0.3 mg/dL (0.2-1.3); BLOOD UREA NITROGEN 22 mg/dL (7-20); CALCIUM 10.3 mg/dL (8.4-10.2); CARBON DIOXIDE 35 mmol/L (22-30); CHLORIDE 96 mmol/L (98-107); GLUCOSE 171 mg/dL (75-110); LIPASE 43.6 U/L (23-300); SODIUM 142.5 mmol/L (137-145); TOTAL PROTEIN 8.7 g/dL (6.3-8.2)
[2018-05-24 19:11] LABS: NT PRO BNP 16 pg/mL (5-900)
[2018-05-24 19:16] VITALS: BP 150/88
[2018-05-24 19:20] LABS: TROPONIN I < 0.012 ng/mL
[2018-05-24] MEDS ORDERED: ONDANSETRON 4 MG TAB.RAPDIS PO ONE (19:27)
[2018-05-24] MEDS ORDERED: OXYCODONE-ACETAMINOPHEN 5-325 MG TABLET PO ONE (19:35)
[2018-05-24] MEDS ORDERED: ONDANSETRON ODT 4 MG TAB (6 TAB/ER DISP) PO PRN (19:41)
--- NOTE | 2018-05-24 19:55 | EKG REPORT ---
SEVERITY:- NORMAL ECG - SINUS RHYTHM : Confirmed by: Guillermina King MD 24-May-2018 19:55:20
[2018-05-24 20:28] LABS: APPEARANCE,URINE SLIGHTLY-CLOUDY; BILIRUBIN,URINE NEGATIVE (NEGATIVE); COLOR,URINE YELLOW; GLUCOSE, URINE NEGATIVE (NEGATIVE); KETONES,URINE NEGATIVE (NEGATIVE); LEUKOCYTE ESTERASE,URINE NEGATIVE (NEGATIVE); NITRITE,URINE NEGATIVE (NEGATIVE); PROTEIN,URINE NEGATIVE (NEGATIVE); URINE SPECIFIC GRAVITY 1.016; UROBILINOGEN,URINE NEGATIVE mg/dL (<2.0)
[2018-05-24] MEDS ORDERED: NORMAL SALINE 1000 ML 1,000 ML IV ONE (21:05)
[2018-05-24] MEDS ORDERED: FENTANYL CITRATE INJ/PF 100 MCG/2 ML AMPUL IV ONE (21:05)
== END 2018-05-24 22:44 | disposition home or self-care (01) ==
LOC: ER 16:05
DX: R10.84 Generalized abdominal pain (principal); R11.2 Nausea with vomiting, unspecified; D72.829 Elevated white blood cell count, unspecified; I25.10 Atherosclerotic heart disease of native coronary artery without angina pectoris; I10 Essential (primary) hypertension; E11.51 Type 2 diabetes mellitus with diabetic peripheral angiopathy without gangrene; J44.9 Chronic obstructive pulmonary disease, unspecified; Z88.1 Allergy status to other antibiotic agents; Z88.5 Allergy status to narcotic agent; Z88.8 Allergy status to other drugs, medicaments and biological substances; Z88.0 Allergy status to penicillin; Z88.2 Allergy status to sulfonamides; Z88.6 Allergy status to analgesic agent; Z95.5 Presence of coronary angioplasty implant and graft; Z95.1 Presence of aortocoronary bypass graft; Z87.19 Personal history of other diseases of the digestive system
CPT/HCPCS: 93005; 36591; 99285; 96361; 96374; 36415; 82962; 83690; 85025; 80053; 81001; 84484; 83880; 93010; J3010; A9270 ×2; J7030

== ENCOUNTER → 2018-06-07 | Outpatient (CLI) | payer MEDICARE, MEDICAID ==
--- NOTE | 2018-06-07 11:23 | WOMENS IMAGING REPORT ---
EXAM DESCRIPTION: 3D SCREENING MAMMO BILAT COMPLETED DATE/TIME: 06/07/2018 10:35 am REASON FOR STUDY: SCREENING MAMMO Z12.31 ENCNTR SCREEN MAMMOGRAM FOR MALIGNANT NEOPLASM OF JORGE COMPARISON: None. TECHNIQUE: Standard craniocaudal and mediolateral oblique views of each breast recorded using digita l acquisition and breast tomosynthesis. LIMITATIONS: Positioning. FINDINGS: No masses, calcifications or architectural distortion. No areas of suspicion. Read with the assistance of CAD. .[facility] - R2 Cenova Version 1.3 .[facility] Imaging - R2 Cenova Version 1.3 .[facility] - R2 Cenova Version 2.4 .[facility] [place] R2 Cenova Version 2.4 .[facility] - R2 Road Equipment Operator Version 9.2 IMPRESSION: NORMAL MAMMOGRAM. BIRADS 1. BREAST DENSITY: b. There are scattered areas of fibroglandular density. BIRAD: 1 NEGATIVE RECOMMENDATION: ROUTINE SCREENING COMMENT: The patient has been notified of the results by letter per SA requirements. Additional no tification policies are in place for contacting patient with suspicious or incomplete findings. Quality ID #[id number]: The [employer] recommends an annual screening mammogram for women aged 40 years or over. This facility utilizes a reminder system to ensure that all patients receive reminder letters, and/or direct phone calls for appointments. This includes reminders for routine scr eening mammograms, diagnostic mammograms, or other Breast Imaging Interventions when appropriate. Th is patient will be placed in the appropriate reminder system. The [employer] (ACR) has developed recommendations for screening MRI of the breast s in certain patient populations, to be used in conjunction with mammography. Breast MRI surveillanc e may be appropriate for women with more than 20% lifetime risk of developing breast cancer as deter mined by genetic testing, significant family history of the disease, or history of mantle radiation f or Hodgkins Disease. ACR Practice Guidelines 2008. DBT Technology DBT is a type of tomographic mammography. With conventional mammography, overlapping breast tissue ma y make lesions difficult to detect, even with good compression. DBT uses an x-ray tube that rotates a round the breast, taking images at different angles. These images are then combined to create thin sl ices of the breast that the radiologist can view as a 3D reconstruction. The [employer] unit can perform full-field digital mammograms (2D imaging); or DBT (3D imaging); or both, in a combination mode that quickly performs both the mammogram and the tomosynthesis scan while the breast is still compressed. PQRS 6045F: Fluoroscopic imaging is not utilized for breast tomosynthesis. TECHNICAL DOCUMENTATION: FINDING NUMBER: (1) ASSESSMENT: (1) JOB ID: [id number] [employer]- All Rights Reserved Reading location - IP/workstation name: [facility]
== END ==
LOC: WI 10:00
PROVIDERS: ATTEND Internal Medicine Geriatric Medicine
DX: Z12.31 Encounter for screening mammogram for malignant neoplasm of breast (principal)
CPT/HCPCS: 77063; 77067

== ENCOUNTER 2018-08-08 11:54 | Emergency (ER) | payer MEDICARE, MEDICAID ==
--- NOTE | 2018-08-08 13:27 | ER Document Report ---
ED General - General Chief Complaint: Dizziness Stated Complaint: DIZZINESS Time Seen by Provider: 08/08/18 12:09 Primary Care Provider: JASSON MARTINI MD [Primary Care Provider] - Follow up as needed TRAVEL OUTSIDE OF THE [place] IN LAST 30 DAYS: No - HPI Notes: Patient is a 58-year-old female that presents to the emergency department for chief complaint of lightheadedness. 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 She denied full syncopal event. She denied any associated chest pain, shortness of breath, headache and vision changes. Patient states that she came to the emergency room because of her lightheadedness. She reports a history of anemia and had blood work drawn this morning at her doctor's appointment just prior to this episode. She states she was told she has a hemoglobin of 7.6 and is scheduled for outpatient blood transfusion tomorrow morning. Currently she states she feels normal and would like to go home Past Medical History: Anemia Past Surgical History: Reviewed in chart Social History: Reviewed in chart Family History: Reviewed and noncontributory for presenting illness Allergies: Reviewed, see documented allergy list. REVIEW OF SYSTEMS: CONSTITUTIONAL : No fever No chills No diaphoresis No recent illness EENT: No vision changes No congestion No sore throat CARDIOVASCULAR: No chest pain No palpitations RESPIRATORY: No shortness of breath No cough No difficulty breathing GASTROINTESTINAL: No abdominal pain No nausea No vomiting No diarrhea GENITOURINARY: No dysuria No hematuria No difficulty urinating MUSCULOSKELETAL: No back pain No leg pain No arm pain SKIN: No rashes No lesions LYMPHATIC: No swollen, enlarged glands. NEUROLOGICAL: lightheadedness No headache No weakness No paresthesias PSYCHIATRIC: No anxiety No depression PHYSICAL EXAMINATION: Vital signs reviewed, nursing noted reviewed. GENERAL: Well-appearing, obese and in no acute distress. HEAD: Atraumatic, normocephalic. EYES: Eyes appear normal, extraocular movements intact, sclera anicteric, conjunctiva are normal. ENT: nares patent, oropharynx clear without exudates. Moist mucous membranes. NECK: Normal range of motion, supple without lymphadenopathy LUNGS: Breath sounds clear to auscultation bilaterally and equal. No wheezes rales or rhonchi. HEART: Regular rate and rhythm without murmurs ABDOMEN: Soft, nontender, normoactive bowel sounds. No rebound, guarding, or rigidity. No masses appreciated. EXTREMITIES: Nontender, good range of motion, no pitting or edema. NEUROLOGICAL: No focal neurological deficits. Moves all extremities spontaneously Motor and sensory grossly intact on exam. PSYCH: Normal mood, normal affect. SKIN: Warm, Dry, normal turgor, no rashes or lesions noted on exposed skin - Related Data Allergies/Adverse Reactions: cephalexin monohydrate [From Keflex] Allergy (Unknown, Verified 03/16/18 15:29) codeine [Codeine] Allergy (Unknown, Verified 03/16/18 15:29) dicyclomine HCl [From Bentyl] Allergy (Unknown, Verified 03/16/18 15:29) hydrocodone bitartrate [From Vicodin] Allergy (Unknown, Verified 03/16/18 15:29) meloxicam [From Mobic] Allergy (Unknown, Verified 03/16/18 15:29) meperidine HCl [From Demerol (PF)] Allergy (Unknown, Verified 03/16/18 15:29) morphine [Morphine] Allergy (Unknown, Verified 03/16/18 15:29) naproxen sodium [From Naprelan CR Dosepak] Allergy (Unknown, Verified 03/16/18 15:29) nitrofurantoin [From Macrobid] Allergy (Unknown, Verified 03/16/18 15:29) pantoprazole sodium [From Protonix] Allergy (Unknown, Verified 03/16/18 15:29) Penicillins Allergy (Unknown, Verified 03/16/18 15:29) Sulfa (Sulfonamide Antibiotics) Allergy (Unknown, Verified 03/16/18 15:29) aspirin Allergy (Verified 03/16/18 15:29) lamotrigine [From Lamictal] Allergy (Verified 03/16/18 15:29) rash Past Medical History - Social History Smoking Status: Former Smoker Chew tobacco use (# tins/day): Yes Frequency of alcohol use: None Drug Abuse: None Family History: None, Hypertension Patient has suicidal ideation: No Patient has homicidal ideation: No - Past Medical History Cardiac Medical History: Reports: Hx Congestive Heart Failure, Hx Coronary Art jumana Disease, Hx Heart Attack - 2 STENTS, Hx Hypercholesterolemia, Hx Hypertension, Hx Peripheral Vascular Disease Denies: Hx Heart Murmur Pulmonary Medical History: Reports: Hx Asthma, Hx Bronchitis, Hx COPD - WEARS 2 LNC 24HRS/DAY, Hx Sleep Apnea Denies: Hx Pneumonia, Hx Respiratory Failure, Hx Tuberculosis Neurological Medical History: Reports: Hx Migraine. Denies: Hx Cerebrovascular Accident, Hx Seizures Endocrine Medical History: Reports: Hx Diabetes Mellitus Type 2, Hx Hyperthyroidism, Hx Hypothyroidism Renal/ Medical History: Reports: Hx End Stage Renal Disease - Stage IV, no dialysis yet, Hx Renal Insufficiency. Denies: Hx Peritoneal Dialysis Malignancy Medical History: GI Medical History: Reports: Hx Gastroesophageal Reflux Disease. Denies: Hx Pancreatitis Musculoskeletal Medical History: Denies Hx Arthritis, Reports Hx Fibromyalgia, Reports Hx Muscle Weakness Psychiatric Medical History: Reports: Hx Bipolar Disorder, Hx Depression, Hx Post Traumatic Stress Disorder, Hx Schizophrenia Traumatic Medical History: Infectious Medical History: Past Surgical History: Reports: Hx Cardiac Catheterization, Hx Section - x2, Hx Coronary Artery Bypass Graft, Hx Coronary Stent - x2, Hx Hysterectomy, Hx Orthopedic Surgery, Hx Tubal Ligation, Other - multiple colonoscopies for lower GI bleed - Immunizations Hx Diphtheria, Pertussis, Tetanus Vaccination: Yes Hx Pneumococcal Vaccination: 04/02/13 Course - Re-evaluation Re-evalutation: 08/08/18 13:26 Vitals reviewed. Nursing notes reviewed. Chest x-ray shows no acute cardiopulmonary process including widened mediastinum. Her EKG shows normal sinus rhythm with no ischemic changes. Patient workup including blood work for further evaluation into her lightheadedness but has declined. She is currently asymptomatic. Her lightheadedness is likely related to her anemia and she is scheduled to have a blood transfusion tomorrow. I encouraged her to keep her appointment for transfusion and follow with her cotton classer and oncologist. Patient is in agreement with this and request to be discharged home now without further management. She was stable at discharge. - Diagnostic Test Radiology reviewed: Image reviewed - EKG Interpretation by Me Additional EKG results interpreted by me: 08/08/18 13:26 Interpreted by myself 1225: Normal sinus rhythm, rate 86, normal axis, no ectopy, no STEMI Discharge - Discharge Clinical Impression: Lightheadedness Condition: Stable Disposition: HOME, SELF-CARE Instructions: Anemia ([facility]) Additional Instructions: Please return to the emergency department if you have any worsening, or concern of your symptoms. Please return to the emergency department if you develop chest pain, difficulty breathing, severe abdominal pain, or ongoing vomiting. Please follow-up with your primary care physician in 2-3 days and any other recommended physicians. If prescribed, take all medications as directed. If you have any questions or concerns do not hesitate to return the emergency department for evaluation. Keep your appointment tomorrow for blood transfusion as already scheduled Referrals: JASSON MARTINI MD [Primary Care Provider] - Follow up as needed
--- NOTE | 2018-08-08 13:31 | RADIOLOGY REPORT (SQ) ---
EXAM DESCRIPTION: CHEST SINGLE VIEW COMPLETED DATE/TIME: 08/08/2018 12:38 pm REASON FOR STUDY: Dizziness COMPARISON: 12/30/2016 EXAM PARAMETERS: NUMBER OF VIEWS: One view. TECHNIQUE: Single frontal radiographic view of the chest acquired. RADIATION DOSE: NA LIMITATIONS: None. FINDINGS: LUNGS AND PLEURA: No opacities, masses or pneumothorax. No pleural effusion. MEDIASTINUM AND HILAR STRUCTURES: No masses. Contour normal. HEART AND VASCULAR STRUCTURES: Cardiomegaly. BONES: No acute findings. HARDWARE: None in the chest. OTHER: Right neck port catheter. IMPRESSION: Cardiomegaly without acute abnormality of the lungs. No focal airspace opacity. TECHNICAL DOCUMENTATION: JOB ID: [id number] [employer]- All Rights Reserved Reading location - IP/workstation name: [email or web address]
[2018-08-08 13:41] VITALS: BP 96/57
--- NOTE | 2018-08-10 12:40 | EKG REPORT ---
SEVERITY:- NORMAL ECG - SINUS RHYTHM : Confirmed by: Maurice Nieto 10-Aug-2018 12:39:28
== END 2018-08-08 13:40 | disposition home or self-care (01) ==
LOC: ER 11:54
DX: R42 Dizziness and giddiness (principal); Z87.891 Personal history of nicotine dependence; I50.9 Heart failure, unspecified; I25.10 Atherosclerotic heart disease of native coronary artery without angina pectoris; I25.2 Old myocardial infarction; I11.0 Hypertensive heart disease with heart failure; J44.9 Chronic obstructive pulmonary disease, unspecified; E11.9 Type 2 diabetes mellitus without complications
CPT/HCPCS: 71045; 93005; 93010; 99284

== ENCOUNTER 2018-09-05 07:26 | Outpatient (CLI) | payer MEDICARE, MEDICAID ==
[~2018-09-05 07:26] MED LIST changes: -ACETAMINOPHEN 325 MG TABLET PO PRN; -DIPHENHYDRAMINE HCL 25 MG CAPSULE PO PRN
[2018-09-05 10:02] LABS: HEMATOCRIT 19.5 % (36.0-47.0); MEAN CORPUSCULAR HEMOGLOBIN 26.4 pg (27.0-33.4); MEAN CORPUSCULAR HGB CONC 32.8 g/dL (32.0-36.0); MEAN CORPUSCULAR VOLUME 80 fl (80-97); PLATELET COUNT 251 10^3/uL (150-450); RED BLOOD COUNT 2.43 10^6/uL (3.72-5.28); RED CELL DISTRIBUTION WIDTH 20.2 % (11.5-14.0); WHITE BLOOD COUNT 8.3 10^3/uL (4.0-10.5)
[2018-09-05 10:11] LABS: HEMOGLOBIN 6.4 g/dL (12.0-15.5)
[2018-09-05] MEDS ORDERED: ACETAMINOPHEN 325 MG TABLET ONE ×2 (11:18→11:32)
[2018-09-05] MEDS ORDERED: DIPHENHYDRAMINE HCL 25 MG CAPSULE ONE ×2 (11:18→11:32)
[2018-09-05] MEDS ORDERED: NORMAL SALINE 250 ML IV PRN (11:30)
[2018-09-05 18:41] VITALS: BP 110/64
[2018-09-05 19:12] LABS: ABSOLUTE BASOPHILS # (AUTO) 0.1 10^3/uL (0.0-0.2); ABSOLUTE EOSINOPHILS # (AUTO) 0.2 10^3/uL (0.0-0.6); ABSOLUTE LYMPHOCYTES (AUTO) 1.7 10^3/uL (0.5-4.7); ABSOLUTE MONOCYTES (AUTO) 0.5 10^3/uL (0.1-1.4); ABSOLUTE NEUT (AUTO) 5.6 10^3/uL (1.7-8.2); BASOPHILS % (AUTO) 1.1 % (0-2); EOSINOPHILS % (AUTO) 2.3 % (0-6); HEMATOCRIT 26.8 % (36.0-47.0); LYMPHOCYTES % (AUTO) 21.7 % (13-45); MEAN CORPUSCULAR HEMOGLOBIN 25.9 pg (27.0-33.4); MEAN CORPUSCULAR HGB CONC 32.5 g/dL (32.0-36.0); MEAN CORPUSCULAR VOLUME 80 fl (80-97); MONOCYTES % (AUTO) 5.7 % (3-13); PLATELET COUNT 256 10^3/uL (150-450); RED BLOOD COUNT 3.36 10^6/uL (3.72-5.28); RED CELL DISTRIBUTION WIDTH 19.5 % (11.5-14.0); SEGMENTED NEUTROPHILS % (AUTO) 69.2 % (42-78); TOTAL CELLS COUNTED % (AUTO) 100 %; WHITE BLOOD COUNT 8.1 10^3/uL (4.0-10.5)
[2018-09-05 19:13] LABS: HEMOGLOBIN 8.7 g/dL (12.0-15.5)
== END 2018-09-05 19:30 | disposition home health service (06) ==
LOC: II 07:26 → 5 07:30 → II 19:30
PROVIDERS: ATTEND Internal Medicine Medical Oncology
PROC: 30243N1 Transfusion of Nonautologous Red Blood Cells into Central Vein, Percutaneous Approach (ICD-10-PCS; principal; 2018-09-05)
PROC: 3E043GC Introduction of Other Therapeutic Substance into Central Vein, Percutaneous Approach (ICD-10-PCS; 2018-09-05)
DX: D50.0 Iron deficiency anemia secondary to blood loss (chronic) (principal); N18.3 Chronic kidney disease, stage 3 (moderate); D63.8 Anemia in other chronic diseases classified elsewhere; K64.8 Other hemorrhoids; K90.9 Intestinal malabsorption, unspecified
CPT/HCPCS: 86900; 86901; 36415; 86850; 82962; 85025; 86920; 96374; P9016; A9270 ×2; J1940; 36430

== ENCOUNTER 2018-10-17 22:35 | Emergency (ER) | payer MEDICARE, MEDICAID ==
[2018-10-17] MEDS ORDERED: LIDOCAINE 4% TRANSPARENT DRESSING 5 GM KIT TP ONE (23:11)
[2018-10-17 23:19] LABS: ABSOLUTE BASOPHILS # (AUTO) 0.1 10^3/uL (0.0-0.2); ABSOLUTE EOSINOPHILS # (AUTO) 0.3 10^3/uL (0.0-0.6); ABSOLUTE LYMPHOCYTES (AUTO) 2.1 10^3/uL (0.5-4.7); ABSOLUTE MONOCYTES (AUTO) 0.7 10^3/uL (0.1-1.4); ABSOLUTE NEUT (AUTO) 5.6 10^3/uL (1.7-8.2); BASOPHILS % (AUTO) 0.8 % (0-2); EOSINOPHILS % (AUTO) 3.2 % (0-6); HEMATOCRIT 18.1 % (36.0-47.0); LYMPHOCYTES % (AUTO) 24.1 % (13-45); MEAN CORPUSCULAR HEMOGLOBIN 26.4 pg (27.0-33.4); MEAN CORPUSCULAR HGB CONC 32.9 g/dL (32.0-36.0); MEAN CORPUSCULAR VOLUME 80 fl (80-97); MONOCYTES % (AUTO) 7.9 % (3-13); PLATELET COUNT 235 10^3/uL (150-450); RED BLOOD COUNT 2.25 10^6/uL (3.72-5.28); RED CELL DISTRIBUTION WIDTH 18.8 % (11.5-14.0); TOTAL CELLS COUNTED % (AUTO) 100 %; WHITE BLOOD COUNT 8.7 10^3/uL (4.0-10.5)
[2018-10-17 23:24] LABS: HEMOGLOBIN 5.9 g/dL (12.0-15.5); INTERNATIONAL RATION (INR) 1.02; PROTHROMBIN TIME 13.9 SEC (11.4-15.4)
[2018-10-17 23:25] LABS: PARTIAL THROMBOPLASTIN TIME 41.7 SEC (23.5-35.8)
[2018-10-17] MEDS ORDERED: NORMAL SALINE 250 ML IV PRN ×3 (23:28→23:55)
[2018-10-17 23:44] LABS: ALANINE AMINOTRANSFERASE 23 U/L (9-52); ALBUMIN 3.5 g/dL (3.5-5.0); ALKALINE PHOSPHATASE 125 U/L (38-126); ANION GAP 11 (5-19); ASPARTATE AMINO TRANSFERASE 13 U/L (14-36); BILIRUBIN,DIRECT 0.2 mg/dL (0.0-0.4); BILIRUBIN,TOTAL 0.2 mg/dL (0.2-1.3); BLOOD UREA NITROGEN 37 mg/dL (7-20); CALCIUM 9.3 mg/dL (8.4-10.2); CARBON DIOXIDE 26 mmol/L (22-30); CHLORIDE 101 mmol/L (98-107); GLUCOSE 181 mg/dL (75-110); POTASSIUM 3.6 mmol/L (3.6-5.0); SODIUM 137.8 mmol/L (137-145); TOTAL PROTEIN 6.7 g/dL (6.3-8.2)
[2018-10-17] MEDS ORDERED: ACETAMINOPHEN 325 MG TABLET PO PRN (23:55)
[2018-10-17] MEDS ORDERED: DIPHENHYDRAMINE HCL 25 MG CAPSULE PO PRN (23:55)
[2018-10-17] MEDS ORDERED: FUROSEMIDE INJ/PF 20 MG/2 ML SDV IV PRN (23:55)
--- NOTE | 2018-10-18 00:11 | ER Document Report ---
ED General - General Chief Complaint: GI Bleeding Stated Complaint: DIZZINESS Time Seen by Provider: 10/17/18 23:55 Primary Care Provider: ANTOINE GAINES MD [ACTIVE STAFF] - Follow up as needed Mode of Arrival: Medic Information source: Patient, Emergency Med Personnel, [facility] Records Notes: 58-year-old female with congestive heart failure, coronary artery disease, h ypertension, hyperlipidemia, type 2 diabetes, COPD on oxygen, chronic anemia presents with complaint of shortness of breath, dizziness and rectal bleeding. Patient states that she has had chronic intermittent rectal bleeding for approximately 1 year with worsening of bleeding for 1 week. Patient reports passing large amounts of clots and a syncopal episode 1 week prior to arrival. Patient reports that she has had a colonoscopy which was nondiagnostic. She reports that she has had numerous blood transfusions in the past. TRAVEL OUTSIDE OF THE [place] IN LAST 30 DAYS: No - HPI Onset: Other Onset/Duration: Persistent, Worse Associated symptoms: Shortness of breath, Other - Dizziness, rectal bleeding Exacerbated by: Denies Relieved by: Denies Similar symptoms previously: Yes Recently seen / treated by doctor: Yes - Related Data Allergies/Adverse Reactions: cephalexin monohydrate [From Keflex] Allergy (Unknown, Verified 03/16/18 15:29) codeine [Codeine] Allergy (Unknown, Verified 03/16/18 15:29) dicyclomine HCl [From Bentyl] Allergy (Unknown, Verified 03/16/18 15:29) hydrocodone bitartrate [From Vicodin] Allergy (Unknown, Verified 03/16/18 15:29) meloxicam [From Mobic] Allergy (Unknown, Verified 03/16/18 15:29) meperidine HCl [From Demerol (PF)] Allergy (Unknown, Verified 03/16/18 15:29) morphine [Morphine] Allergy (Unknown, Verified 03/16/18 15:29) naproxen sodium [From Naprelan CR Dosepak] Allergy (Unknown, Verified 03/16/18 15:29) nitrofurantoin [From Macrobid] Allergy (Unknown, Verified 03/16/18 15:29) pantoprazole sodium [From Protonix] Allergy (Unknown, Verified 03/16/18 15:29) Penicillins Allergy (Unknown, Verified 03/16/18 15:29) Sulfa (Sulfonamide Antibiotics) Allergy (Unknown, Verified 03/16/18 15:29) aspirin Allergy (Verified 03/16/18 15:29) lamotrigine [From Lamictal] Allergy (Verified 03/16/18 15:29) rash Past Medical History - General Information source: Patient, Emergency Med Personnel, [facility] Records - Social History Smoking Status: Unknown if Ever Smoked Frequency of alcohol use: None Drug Abuse: None Lives with: Family Family History: None, Hypertension Patient has suicidal ideation: No Patient has homicidal ideation: No - Past Medical History Cardiac Medical History: Reports: Hx Congestive Heart Failure, Hx Coronary Artery Disease, Hx Heart Attack - 2 STENTS, Hx Hypercholesterolemia, Hx Hypertension, Hx Peripheral Vascular Disease Denies: Hx Heart Murmur Pulmonary Medical History: Reports: Hx Asthma, Hx Bronchitis, Hx COPD - WEARS 2 LNC 24HRS/DAY, Hx Sleep Apnea Denies: Hx Pneumonia, Hx Respiratory Failure, Hx Tuberculosis Neurological Medical History: Reports: Hx Migraine. Denies: Hx Cerebrovascular Accident, Hx Seizures Endocrine Medical History: Reports: Hx Diabetes Mellitus Type 2, Hx Hyperthyroidism, Hx Hypothyroidism Renal/ Medical History: Reports: Hx End Stage Renal Disease - Stage IV, no dialysis yet, Hx Renal Insufficiency. Denies: Hx Peritoneal Dialysis Malignancy Medical History: GI Medical History: Reports: Hx Gastroesophageal Reflux Disease. Denies: Hx Pancreatitis Musculoskeletal Medical History: Denies Hx Arthritis, Reports Hx Fibromyalgia, Reports Hx Muscle Weakness Psychiatric Medical History: Reports: Hx Bipolar Disorder, Hx Depression, Hx Post Traumatic Stress Disorder, Hx Schizophrenia Traumatic Medical History: Infectious Medical History: Past Surgical History: Reports: Hx Cardiac Catheterization, Hx Section - x2, Hx Coronary Artery Bypass Graft, Hx Coronary Stent - x2, Hx Hysterectomy, Hx Orthopedic Surgery, Hx Tubal Ligation, Other - multiple colonoscopies for lower GI bleed - Immunizations Hx Diphtheria, Pertussis, Tetanus Vaccination: Yes Hx Pneumococcal Vaccination: 04/02/13 Review of Systems - Review of Systems Constitutional: Malaise, Weakness EENT: denies: Blurred vision Cardiovascular: Syncope. denies: Chest pain Respiratory: Short of breath Gastrointestinal: Rectal bleeding. denies: Abdominal pain, Poor appetite, Poor fluid intake Genitourinary: denies: Dysuria Female Genitourinary: No symptoms reported Musculoskeletal: Muscle pain, Muscle stiffness, Leg swelling Skin: denies: Rash Hematologic/Lymphatic: Anemia, Easy bleeding Neurological/Psychological: Weakness. denies: Headaches -: Yes All other systems reviewed and negative Physical Exam - Vital signs Vitals: Resp 34 H 10/17/18 22:44 - Notes Notes: PHYSICAL EXAMINATION: GENERAL: Morbidly obese, in no acute distress HEAD: Atraumatic, normocephalic. EYES: Pupils equal round and reactive to light, extraocular movements intact, conjunctiva are normal. ENT: Nares patent, oropharynx clear without exudates. Moist mucous membranes. NECK: Normal range of motion, supple without lymphadenopathy LUNGS: Diminished breath sounds in all lung gordon, tachypnea. HEART: Tachycardic, regular rhythm without murmurs ABDOMEN: Soft, nontender, nondistended abdomen. No guarding, no rebound. No masses appreciated. Female : deferred Musculoskeletal: Normal range of motion, no pitting or edema. No cyanosis. NEUROLOGICAL: Cranial nerves grossly intact. Normal speech, normal gait. Normal sensory, motor exams PSYCH: Normal mood, normal affect. SKIN: Warm, Dry, normal turgor, no rashes or lesions noted. Course - Re-evaluation Re-evalutation: 10/18/18 00:25 Laboratory 10/17/18 10/17/18 10/17/18 23:00 23:00 23:00 WBC 8.7 RBC 2.25 L Hgb 5.9 L Hct 18.1 L MCV 80 MCH 26.4 L MCHC 32.9 RDW 18.8 H Plt Count 235 Seg Neutrophils % 64.0 Lymphocytes % 24.1 Monocytes % 7.9 Eosinophils % 3.2 Basophils % 0.8 Absolute Neutrophils 5.6 Absolute Lymphocytes 2.1 Absolute Monocytes 0.7 Absolute Eosinophils 0.3 Absolute Basophils 0.1 PT 13.9 INR 1.02 APTT 41.7 H Sodium 137.8 Potassium 3.6 Chloride 101 Carbon Dioxide 26 Anion Gap 11 BUN 37 H Creatinine 1.93 H Est GFR ( Amer) 32 L Est GFR (Non-Af Amer) 27 L Glucose 181 H Calcium 9.3 Total Bilirubin 0.2 Direct Bilirubin 0.2 Neonat Total Bilirubin Not Reportable Neonat Direct Bilirubin Not Reportable Neonat Indirect Bili Not Reportable AST 13 L ALT 23 Alkaline Phosphatase 125 Total Protein 6.7 Albumin 3.5 Blood Type Antibody Screen Crossmatch 10/17/18 23:00 WBC RBC Hgb Hct MCV MCH MCHC RDW Plt Count Seg Neutrophils % Lymphocytes % Monocytes % Eosinophils % Basophils % Absolute Neutrophils Absolute Lymphocytes Absolute Monocytes Absolute Eosinophils Absolute Basophils PT INR APTT Sodium Potassium Chloride Carbon Dioxide Anion Gap BUN Creatinine Est GFR ( Amer) Est GFR (Non-Af Amer) Glucose Calcium Total Bilirubin Direct Bilirubin Neonat Total Bilirubin Neonat Direct Bilirubin Neonat Indirect Bili AST ALT Alkaline Phosphatase Total Protein Albumin Blood Type O POSITIVE Antibody Screen NEGATIVE Crossmatch See Detail Temp Pulse Resp BP Pulse Ox 98.2 F 95 16 97/64 L 94 10/17/18 23:06 10/17/18 23:06 10/17/18 23:06 10/17/18 23:06 10/17/18 23:06 Patient accepted for transfer to [facility] by Dr. Saravia 10/18/18 02:18 58-year-old female with chronic anemia, chronic lower GI bleeding presents with complaint of dizziness, shortness of breath and worsening bleeding. Patient states that she has had intermittent rectal bleeding for over 1 year with worsening of bleeding over the last week. She reports passing large clots. Patient does report multiple previous transfusions. Previous medical records and nursing notes were reviewed. Vital signs reviewed upon arrival-patient is mildly hypotensive. CBC does show a hemoglobin of 5.9. CMP shows hyperglycemia without evidence of DKA. Chest x-ray unremarkable. 2 units of PRBCs were ordered. Patient has been accepted for transfer to [facility]. - Vital Signs Vital signs: Temp Pulse Resp BP Pulse Ox 98 F 95 18 104/65 94 10/18/18 01:15 10/17/18 23:06 10/18/18 01:15 10/18/18 01:15 10/18/18 01:15 - Laboratory Result Diagrams: 10/17/18 23:00 10/17/18 23:00 Laboratory results interpreted by me: 10/17/18 10/17/18 10/17/18 23:00 23:00 23:00 RBC 2.25 L Hgb 5.9 L Hct 18.1 L MCH 26.4 L RDW 18.8 H APTT 41.7 H BUN 37 H Creatinine 1.93 H Est GFR ( Amer) 32 L Est GFR (Non-Af Amer) 27 L Glucose 181 H AST 13 L Crossmatch 10/17/18 23:00 RBC Hgb Hct MCH RDW APTT BUN Creatinine Est GFR ( Amer) Est GFR (Non-Af Amer) Glucose AST Crossmatch See Detail - Diagnostic Test Radiology reviewed: Image reviewed, Reports reviewed Critical Care Note - Critical Care Note Total time excluding time spent on procedures (mins): 35 - Minutes of critical care time spent in direct contact evaluating and reevaluating the patient, treating symptoms, reviewing labs and studies and speaking with family and consultants excluding any procedures Discharge - Discharge Clinical Impression: Rectal bleeding, Acute kidney injury, Morbid obesity, Symptomatic anemia Anemia Qualifiers: Anemia type: unspecified type Qualified Code(s): D64.9 - Anemia, unspecified COPD (chronic obstructive pulmonary disease) Qualifiers: COPD type: unspecified COPD Qualified Code(s): J44.9 - Chronic obstructive pulmonary disease, unspecified Condition: Fair Disposition: [facility] Referrals: ANTOINE GAINES MD [ACTIVE STAFF] - Follow up as needed
--- NOTE | 2018-10-18 00:39 | RADIOLOGY REPORT (SQ) ---
EXAM DESCRIPTION: XR CHEST 1 VIEW COMPLETED DATE/TME: 10/18/2018 00:07 CLINICAL HISTORY: 58 years, Female, sob COMPARISON: 08/08/2018 chest NUMBER OF VIEWS: 1 TECHNIQUE: Portable chest LIMITATIONS: None. FINDINGS: Heart size normal. [id number] catheter in place. Lungs are clear. No pneumothorax IMPRESSION: No acute cardiopulmonary process copyright 2010 [employer]- All Rights Reserved
[2018-10-18] MEDS ORDERED: FUROSEMIDE INJ/PF 20 MG/2 ML SDV IV ONE (02:04)
[2018-10-18 04:16] VITALS: BP 125/71
== END 2018-10-18 04:15 | disposition short-term general hospital (02) ==
LOC: ER 22:35
DX: K92.2 Gastrointestinal hemorrhage, unspecified (principal); R42 Dizziness and giddiness; D64.9 Anemia, unspecified; N17.9 Acute kidney failure, unspecified; E66.01 Morbid (severe) obesity due to excess calories; J44.9 Chronic obstructive pulmonary disease, unspecified; R53.81 Other malaise; I25.10 Atherosclerotic heart disease of native coronary artery without angina pectoris; E78.00 Pure hypercholesterolemia, unspecified; E11.22 Type 2 diabetes mellitus with diabetic chronic kidney disease; I13.2 Hypertensive heart and chronic kidney disease with heart failure and with stage 5 chronic kidney disease, or end stage renal disease; I50.9 Heart failure, unspecified; N18.6 End stage renal disease; I25.2 Old myocardial infarction; Z88.2 Allergy status to sulfonamides; Z88.6 Allergy status to analgesic agent; Z88.0 Allergy status to penicillin
CPT/HCPCS: 99291; 96374; 86900; 86901; 36415; 36430; 86850; 85025; 85610; 85730; 80053; 86920; 71045; P9016; A9270 ×2; J1940; J3490; J7050

== ENCOUNTER 2018-12-07 10:29 | Inpatient (IN) | payer MEDICARE, MEDICAID ==
[2018-12-07 11:24] LABS: ABSOLUTE BASOPHILS # (AUTO) 0.1 10^3/uL (0.0-0.2); ABSOLUTE EOSINOPHILS # (AUTO) 0.1 10^3/uL (0.0-0.6); ABSOLUTE LYMPHOCYTES (AUTO) 1.2 10^3/uL (0.5-4.7); ABSOLUTE MONOCYTES (AUTO) 0.4 10^3/uL (0.1-1.4); ABSOLUTE NEUT (AUTO) 11.1 10^3/uL (1.7-8.2); BASOPHILS % (AUTO) 0.5 % (0-2); EOSINOPHILS % (AUTO) 0.9 % (0-6); HEMATOCRIT 32.3 % (36.0-47.0); HEMOGLOBIN 10.2 g/dL (12.0-15.5); LYMPHOCYTES % (AUTO) 9.4 % (13-45); MEAN CORPUSCULAR HEMOGLOBIN 25.1 pg (27.0-33.4); MEAN CORPUSCULAR HGB CONC 31.6 g/dL (32.0-36.0); MEAN CORPUSCULAR VOLUME 80 fl (80-97); MONOCYTES % (AUTO) 2.8 % (3-13); PLATELET COUNT 280 10^3/uL (150-450); RED BLOOD COUNT 4.07 10^6/uL (3.72-5.28); RED CELL DISTRIBUTION WIDTH 18.6 % (11.5-14.0); SEGMENTED NEUTROPHILS % (AUTO) 86.4 % (42-78); TOTAL CELLS COUNTED % (AUTO) 100 %; WHITE BLOOD COUNT 12.8 10^3/uL (4.0-10.5)
[2018-12-07 11:46] LABS: ALANINE AMINOTRANSFERASE 18 U/L (9-52); ALBUMIN 4.6 g/dL (3.5-5.0); ALKALINE PHOSPHATASE 186 U/L (38-126); ANION GAP 13 (5-19); ASPARTATE AMINO TRANSFERASE 18 U/L (14-36); BILIRUBIN,DIRECT 0.4 mg/dL (0.0-0.4); BILIRUBIN,TOTAL 0.4 mg/dL (0.2-1.3); BLOOD UREA NITROGEN 14 mg/dL (7-20); CALCIUM 10.7 mg/dL (8.4-10.2); CARBON DIOXIDE 26 mmol/L (22-30); CHLORIDE 103 mmol/L (98-107); GLUCOSE 191 mg/dL (75-110); POTASSIUM 4.3 mmol/L (3.6-5.0); SODIUM 142.2 mmol/L (137-145); TOTAL PROTEIN 8.6 g/dL (6.3-8.2)
--- NOTE | 2018-12-07 13:34 | ER Document Report ---
ED GI/ - General Chief Complaint: Nausea/Vomiting Stated Complaint: VOMITING Time Seen by Provider: 12/07/18 11:41 Primary Care Provider: JASSON MARTINI MD [Primary Care Provider] - Follow up as needed Notes: Patient is a 58-year-old female with a history of type 2 diabetes, heart failure, hypertension, high cholesterol, cardiac stents, COPD, asthma, emphysema with a chief complaint of generalized abdominal pain. Patient states she woke up this morning with the pain and discomfort throughout the whole entire abdomen. Patient reports that she feels more bloated than normal. Patient states she has vomited 4 times and had 2 episodes of "liquid diarrhea "that was black in color. Patient states she has a history of multiple GI bleeds with over 15 transfusions in the past. Patient denies recent illness or fever. Patient denies chest pain or shortness of breath. TRAVEL OUTSIDE OF THE [place] IN LAST 30 DAYS: No - Related Data Allergies/Adverse Reactions: cephalexin monohydrate [From Keflex] Allergy (Unknown, Verified 12/07/18 10:54) codeine [Codeine] Allergy (Unknown, Verified 12/07/18 10:54) dicyclomine HCl [From Bentyl] Allergy (Unknown, Verified 12/07/18 10:54) hydrocodone bitartrate [From Vicodin] Allergy (Unknown, Verified 12/07/18 10:54) meloxicam [From Mobic] Allergy (Unknown, Verified 12/07/18 10:54) meperidine HCl [From Demerol (PF)] Allergy (Unknown, Verified 12/07/18 10:54) morphine [Morphine] Allergy (Unknown, Verified 12/07/18 10:54) naproxen sodium [From Naprelan CR Dosepak] Allergy (Unknown, Verified 12/07/18 10:54) nitrofurantoin [From Macrobid] Allergy (Unknown, Verified 12/07/18 10:54) pantoprazole sodium [From Protonix] Allergy (Unknown, Verified 12/07/18 10:54) Penicillins Allergy (Unknown, Verified 03/16/18 15:29) Sulfa (Sulfonamide Antibiotics) Allergy (Unknown, Verified 03/16/18 15:29) aspirin Allergy (Verified 03/16/18 15:29) lamotrigine [From Lamictal] Allergy (Verified 03/16/18 15:29) rash Past Medical History - General Information source: Patient - Social History Smoking Status: Never Smoker Chew tobacco use (# tins/day): Yes Frequency of alcohol use: None Drug Abuse: Prescription drugs Family History: None, Hypertension Patient has suicidal ideation: No Patient has homicidal ideation: No - Past Medical History Cardiac Medical History: Reports: Hx Congestive Heart Failure, Hx Coronary Artery Disease, Hx Heart Attack - 2 STENTS, Hx Hypercholesterolemia, Hx H ypertension, Hx Peripheral Vascular Disease Denies: Hx Heart Murmur Pulmonary Medical History: Reports: Hx Asthma, Hx Bronchitis, Hx COPD - WEARS 2 LNC 24HRS/DAY, Hx Sleep Apnea Denies: Hx Pneumonia, Hx Respiratory Failure, Hx Tuberculosis EENT Medical History: Reports: None Neurological Medical History: Reports: Hx Migraine. Denies: Hx Cerebrovascular Accident, Hx Seizures Endocrine Medical History: Reports: Hx Diabetes Mellitus Type 2, Hx Hyperthyroidism, Hx Hypothyroidism Renal/ Medical History: Reports: Hx End Stage Renal Disease - Stage IV, no dialysis yet, Hx Renal Insufficiency. Denies: Hx Peritoneal Dialysis Malignancy Medical History: Reports: None GI Medical History: Reports: Hx Gastroesophageal Reflux Disease. Denies: Hx Pancreatitis Musculoskeletal Medical History: Denies Hx Arthritis, Reports Hx Fibromyalgia, Reports Hx Muscle Weakness, Denies Hx Systemic Lupus Erythematosus Skin Medical History: Reports None Psychiatric Medical History: Reports: Hx Bipolar Disorder, Hx Depression, Hx Post Traumatic Stress Disorder, Hx Schizophrenia Traumatic Medical History: Infectious Medical History: Past Surgical History: Reports: Hx Cardiac Catheterization, Hx Section - x2, Hx Coronary Artery Bypass Graft, Hx Coronary Stent - x2, Hx Hysterectomy, Hx Orthopedic Surgery, Hx Tubal Ligation, Other - multiple colonoscopies for lower GI bleed - Immunizations Hx Diphtheria, Pertussis, Tetanus Vaccination: Yes Hx Pneumococcal Vaccination: 04/02/13 Review of Systems - Review of Systems Constitutional: See HPI EENT: No symptoms reported Cardiovascular: No symptoms reported Respiratory: No symptoms reported Gastrointestinal: See HPI Genitourinary: No symptoms reported Female Genitourinary: No symptoms reported Musculoskeletal: No symptoms reported Skin: No symptoms reported Hematologic/Lymphatic: No symptoms reported Neurological/Psychological: No symptoms reported Physical Exam - Vital signs Vitals: BP 116/90 H 12/07/18 10:23 - Notes Notes: GENERAL: Well-appearing, well-nourished and in mild distress - actively vomiting. HEAD: Atraumatic, normocephalic. EYES: Pupils equal round and reactive to light, extraocular movements intact, sclera anicteric, conjunctiva are normal. ENT: Nares patent, oropharynx clear without exudates. Moist mucous membranes. NECK: Normal range of motion, supple without lymphadenopathy or JVD. LUNGS: Breath sounds clear to auscultation bilaterally and equal. No wheezes rales or rhonchi. HEART: Regular rate and rhythm without murmurs, rubs or gallops. ABDOMEN: Round, distended, mildly tender throughout abdomen, normoactive bowel sounds. No guarding, no rebound. No masses appreciated. BACK: No cervical, thoracic, lumbar midline tenderness. No saddle anesthesia, normal distal neurovascular exam. GENITOURINARY: Deferred. EXTREMITIES: Normal range of motion, +2 pitting edema to the lower extremities bilaterally. No surrounding erythema or open wounds. NEUROLOGICAL: Cranial nerves II through XII grossly intact. Normal speech, normal gait. PSYCH: Normal mood, normal affect. SKIN: Warm, Dry, normal turgor, no rashes or lesions noted Course - Re-evaluation Re-evalutation: 12/07/18 13:32 Patient actively vomiting at the bedside. The emesis is yellow in color and no obvious bright red bleeding or dark blood. Continues to complain of generalized abdominal pain. I did perform a Hemoccult on the patient which was negative. Due to patient's vomiting and distention of her abdomen I do believe a CAT scan is necessary. Patient is currently hemodynamically stable. Will attempt oral contrast. 12/07/18 15:26 Patient resting comfortably on stretcher. Patient has completed 1 bottle of oral contrast but states she is unable to finish the rest due to being sick at h er stomach. Will continue with CT abdomen the patient has only had one bottle of oral, rest. 12/07/18 17:[address] Rashid with surgery who states they will admit the patient and come and see her in the ER. Patient is resting comfortably on stretcher, has not vomited since receiving dose of Zofran. 12/07/18 18:40 Dr. Rashid at bedside. He reports that after assessing the patient he does not believe that this is a surgical issue at this time. Due to the patient's comorbidities, possible urinary tract infection he would like the patient's primary care provider to admit. He states that surgery will be available for consult or if needed for change in patient's abdominal symptoms. I did speak with Dr. Nicole Brown who agrees to admit overnight for observation for nausea and vomiting. Due to the developing urinary tract infection he recommended placing the patient on Levaquin 500 mg IV for 1 dose. He reports that he will see the patient tomorrow morning. I did discuss this with the patient and she is in agreement with admission. Patient currently sitting upright on stretcher and is in no acute acute distress. Patient does appear sleepy as she has been all day. Patient denies taking certain medications that cause drowsiness. Patient states that she has just been unable to sleep recently. ShE is normotensive on the monitor, heart rate 87 and her oxygen is 99% on 2 L nasal cannula. Patient reports she does wear 2 L nasal cannula continuously. - Vital Signs Vital signs: Temp Pulse Resp BP Pulse Ox 98.7 F 91 19 142/92 H 100 12/07/18 10:39 12/07/18 10:39 12/07/18 15:01 12/07/18 15:01 12/07/18 15:01 - Laboratory Result Diagrams: 12/07/18 11:15 12/07/18 11:15 Laboratory results interpreted by me: 12/07/18 12/07/18 12/07/18 11:15 11:15 13:40 WBC 12.8 H Hgb 10.2 L Hct 32.3 L MCH 25.1 L MCHC 31.6 L RDW 18.6 H Seg Neutrophils % 86.4 H Lymphocytes % 9.4 L Monocytes % 2.8 L Absolute Neutrophils 11.1 H Est GFR (Non-Af Amer) 52 L Glucose 191 H Calcium 10.7 H Alkaline Phosphatase 186 H Total Protein 8.6 H Ur Leukocyte Esterase MODERATE H - Diagnostic Test Radiology reviewed: Reports reviewed - EKG Interpretation by Me Additional EKG results interpreted by me: 12/07/18 14:05 Since EKG shows a sinus rhythm with a rate of 80, CA interval is 188, QT is 380, QTc is 439. Patient has a normal axis deviation. There are no ST or segment changes in consecutive leads. There is no ectopy noted. Discharge - Discharge Clinical Impression: Nausea & vomiting Qualifiers: Vomiting type: unspecified Vomiting Intractability: unspecified Qualified Code(s): R11.2 - Nausea with vomiting, unspecified Urinary tract infection Qualifiers: Urinary tract infection type: site unspecified Hematuria presence: without hematuria Qualified Code(s): N39.0 - Urinary tract infection, site not specified Condition: Stable Disposition: ADMITTED OBSERVATION Admitting Provider: Aron Unit Admitted: Medical Floor Referrals: JASSON MARTINI MD [Primary Care Provider] - Follow up as needed
[2018-12-07] MEDS ORDERED: ONDANSETRON HCL INJ/PF 4 MG/2 ML SDV IV ONE (13:39)
[2018-12-07 14:08] LABS: APPEARANCE,URINE CLOUDY; BILIRUBIN,URINE NEGATIVE (NEGATIVE); GLUCOSE, URINE NEGATIVE (NEGATIVE); KETONES,URINE NEGATIVE (NEGATIVE); LEUKOCYTE ESTERASE,URINE MODERATE (NEGATIVE); NITRITE,URINE NEGATIVE (NEGATIVE); PROTEIN,URINE NEGATIVE (NEGATIVE); URINE SPECIFIC GRAVITY 1.019; UROBILINOGEN,URINE NEGATIVE mg/dL (<2.0)
[2018-12-07 14:17] LABS: COLOR,URINE YELLOW
--- NOTE | 2018-12-07 17:12 | RADIOLOGY REPORT (SQ) ---
EXAM DESCRIPTION: CT ABD/PELVIS WITH IV ORAL COMPLETED DATE/TIME: 12/07/2018 4:46 pm REASON FOR STUDY: abdominal distention, vomiting COMPARISON: 01/10/2018 TECHNIQUE: CT scan of the abdomen and pelvis performed using helical scanning technique with dynamic intravenous contrast injection. No oral contrast. Images reviewed with lung, soft tissue, and bone windows. Reconstructed coronal and sagittal MPR images reviewed. Delayed images for evaluation of the urinary system also acquired. All images stored on PACS. All CT scanners at this facility use dose modulation, iterative reconstruction, and/or weight based d osing when appropriate to reduce radiation dose to as low as reasonably achievable (ALARA). [facility]: Dose Right [facility]: CareDose [facility]: Dose Right [facility]: Teradose 4D [facility]: [employer] Technologies CONTRAST TYPE AND DOSE: Not recorded here. Refer to medical office technologist notes. RENAL FUNCTION: BUN 14 creatinine 1.08 RADIATION DOSE: CT Rad equipment meets quality standard of care and radiation dose reduction techniq ues were employed. CTDIvol: 20.6 - 21.0 mGy. DLP: 2353 mGy-cm.. LIMITATIONS: None. FINDINGS: LOWER CHEST: Subsegmental atelectasis. Cardiomegaly. LIVER: Normal size. No masses. No dilated ducts. SPLEEN: Normal size. No focal lesions. PANCREAS: Marked fatty replacement of the pancreas. GALLBLADDER: No identified stones by CT criteria. No inflammatory changes to suggest cholecystitis. ADRENAL GLANDS: 2 cm left adrenal nodule. Unchanged. RIGHT KIDNEY AND URETER: No solid masses. No significant calcifications. No hydronephrosis or hyd roureter. LEFT KIDNEY AND URETER: No solid masses. No significant calcifications. No hydronephrosis or hydr oureter. AORTA AND VESSELS: No aneurysm. No dissection. Renal arteries, SMA, celiac without stenosis. RETROPERITONEUM: No retroperitoneal adenopathy, hemorrhage or masses. BOWEL AND PERITONEAL CAVITY: Stomach and small bowel are distended with air and fluid. The transitio n point is not identified. APPENDIX: Normal. PELVIS: No mass. No free fluid. Normal bladder. ABDOMINAL WALL: No masses. No hernias. BONES: No significant or acute findings. OTHER: No other significant finding. IMPRESSION: Small bowel obstruction. Stable left adrenal nodule. TECHNICAL DOCUMENTATION: JOB ID: [id number] Quality ID # [id number]: Final reports with documentation of one or more dose reduction techniques (e.g., Au tomated exposure control, adjustment of the mA and/or kV according to patient size, use of iterative reconstruction technique) 2010 [employer]- All Rights Reserved Reading location - IP/workstation name: [email or web address]
[2018-12-07] MEDS ORDERED: NORMAL SALINE 1000 ML 1,000 ML IV ONE (18:45)
[2018-12-07] MEDS ORDERED: LEVOFLOXACIN 500 MG/D5W RTU 500 MG/100 ML RTUPB IV ONE (18:54)
--- NOTE | 2018-12-07 19:03 | PDOC CONSULTATION ---
Consultation Consult Date: 12/07/18 Provider Consulted: MARK KHANNA Consult reason:: abdominal pain; CT scan findings History of Present Illness Admission Date/PCP: JASSON MARTINI History of Present Illness: SANTOS NAVARRO is a 58 year old female, obese, with multiple medical problems (diabetes, HTN, COPD, mental conditions, chronic anemia) who comes to the Ed with a c/o abdominal tightness starting this afternoon, followed by three bowel movement with dark stools (no blood seen), soft, with partial relief, one episode of emesis this morning and one in the ED on arrival. Currently, she yolette ears sleepy, arousable, and appropriate during the interview. A CT scan A/P has been done has it shows aspecific dilatation of the small bowel loops. Past Medical History Cardiac Medical History: Reports: Congestive Heart Failure, Coronary Artery Disease, Myocardial Infarction - 2 STENTS, Hyperlipidema, Hypertension, Peripheral Vascular Disease Denies: Heart Murmur Pulmonary Medical History: Reports: Asthma, Bronchitis, Chronic Obstructive Pulmonary Disease (COPD) - WEARS 2 LNC 24HRS/DAY, Sleep Apnea Denies: Pneumonia, Respiratory Failure, Tuberculosis EENT Medical History: Reports: None Neurological Medical History: Reports: Migraine Denies: Seizures Endocrine Medical History: Reports: Diabetes Mellitus Type 2, Hyperthyroidism, Hypothyroidism Renal/ Medical History: Reports: End Stage Renal Disease - Stage IV, no d ialysis yet Malignancy Medical History: Reports: None GI Medical History: Reports: Gastroesophageal Reflux Disease Musculoskeltal Medical History: Reports: Fibromyalgia Denies: Arthritis Skin Medical History: Reports: None Psychiatric Medical History: Reports: Bipolar Disorder, Depression, Post Traumatic Stress Disorder Hematology: Denies: Anemia, Hemophilia, Sickle Cell Disease, Bleeding Tendencies Infectious Medical History: Past Surgical History Past Surgical History: Reports: Cardiac Catheterization, Section - x2, Coronary Artery Bypass Graft, Coronary Stent - x2, Hysterectomy, Orthopedic Surgery, Tubal Ligation, Other - multiple colonoscopies for lower GI bleed Denies: Amputation Social History Smoking Status: Never Smoker Frequency of Alcohol Use: None Hx Recreational Drug Use: No Drugs: None Hx Prescription Drug Abuse: No Family History Family History: None, Hypertension Parental Family History Reviewed: No Children Family History Reviewed: No Sibling(s) Family History Reviewed.: No Medication/Allergy Allergies/Adverse Reactions: cephalexin monohydrate [From Keflex] Allergy (Unknown, Verified 12/07/18 10:54) codeine [Codeine] Allergy (Unknown, Verified 12/07/18 10:54) dicyclomine HCl [From Bentyl] Allergy (Unknown, Verified 12/07/18 10:54) hydrocodone bitartrate [From Vicodin] Allergy (Unknown, Verified 12/07/18 10:54) meloxicam [From Mobic] Allergy (Unknown, Verified 12/07/18 10:54) meperidine HCl [From Demerol (PF)] Allergy (Unknown, Verified 12/07/18 10:54) morphine [Morphine] Allergy (Unknown, Verified 12/07/18 10:54) naproxen sodium [From Naprelan CR Dosepak] Allergy (Unknown, Verified 12/07/18 10:54) nitrofurantoin [From Macrobid] Allergy (Unknown, Verified 12/07/18 10:54) pantoprazole sodium [From Protonix] Allergy (Unknown, Verified 12/07/18 10:54) Penicillins Allergy (Unknown, Verified 03/16/18 15:29) Sulfa (Sulfonamide Antibiotics) Allergy (Unknown, Verified 03/16/18 15:29) aspirin Allergy (Verified 03/16/18 15:29) lamotrigine [From Lamictal] Allergy (Verified 03/16/18 15:29) rash Physical Exam Vital Signs: Temp Pulse Resp BP Pulse Ox 98.7 F 91 19 142/92 H 100 12/07/18 10:39 12/07/18 10:39 12/07/18 15:01 12/07/18 15:01 12/07/18 15:01 Intake & Output 12/06/18 12/07/18 12/08/18 06:59 06:59 06:59 Weight 137 kg General appearance: PRESENT: cooperative, obese, other - sleepy but arousable Head exam: PRESENT: atraumatic Eye exam: PRESENT: EOMI Mouth exam: PRESENT: dry mucosa, neck supple, tongue midline Teeth exam: PRESENT: edentulous Neck exam: PRESENT: full ROM Respiratory exam: PRESENT: clear to auscultation christine Cardiovascular exam: PRESENT: RRR GI/Abdominal exam: PRESENT: normal bowel sounds, soft, other - feels thigh on palpation with no peritoneal sign Rectal exam: PRESENT: deferred Extremities exam: PRESENT: full ROM Musculoskeletal exam: PRESENT: full ROM Neurological exam: PRESENT: alert, awake, oriented to person, oriented to place, other - sleepy but arousable Psychiatric exam: PRESENT: appropriate affect Skin exam: PRESENT: warm Results Laboratory Results: 12/07/18 11:15 12/07/18 11:15 12/07/18 12/07/18 12/07/18 11:15 11:15 11:15 WBC 12.8 H RBC 4.07 Hgb 10.2 L Hct 32.3 L MCV 80 MCH 25.1 L MCHC 31.6 L RDW 18.6 H Plt Count 280 Seg Neutrophils % 86.4 H Lymphocytes % 9.4 L Monocytes % 2.8 L Eosinophils % 0.9 Basophils % 0.5 Absolute Neutrophils 11.1 H Absolute Lymphocytes 1.2 Absolute Monocytes 0.4 Absolute Eosinophils 0.1 Absolute Basophils 0.1 Sodium 142.2 Potassium 4.3 Chloride 103 Carbon Dioxide 26 Anion Gap 13 BUN 14 Creatinine 1.08 Est GFR ( Amer) > 60 Est GFR (Non-Af Amer) 52 L Glucose 191 H Calcium 10.7 H Total Bilirubin 0.4 AST 18 ALT 18 Alkaline Phosphatase 186 H Total Protein 8.6 H Albumin 4.6 Lipase 92.5 Urine Color Urine Appearance Urine pH Ur Specific [place] Urine Protein Urine Glucose (UA) Urine Ketones Urine Blood Urine Nitrite Ur Leukocyte Esterase Urine WBC (Auto) Urine RBC (Auto) 12/07/18 13:40 WBC RBC Hgb Hct MCV MCH MCHC RDW Plt Count Seg Neutrophils % Lymphocytes % Monocytes % Eosinophils % Basophils % Absolute Neutrophils Absolute Lymphocytes Absolute Monocytes Absolute Eosinophils Absolute Basophils Sodium Potassium Chloride Carbon Dioxide Anion Gap BUN Creatinine Est GFR ( Amer) Est GFR (Non-Af Amer) Glucose Calcium Total Bilirubin AST ALT Alkaline Phosphatase Total Protein Albumin Lipase Urine Color YELLOW Urine Appearance CLOUDY Urine pH 6.0 Ur Specific [place] 1.019 Urine Protein NEGATIVE Urine Glucose (UA) NEGATIVE Urine Ketones NEGATIVE Urine Blood NEGATIVE Urine Nitrite NEGATIVE Ur Leukocyte Esterase MODERATE H Urine WBC (Auto) 51 Urine RBC (Auto) 1 Impressions: Abdomen/Pelvis CT 12/07/18 00:00 IMPRESSION: Small bowel obstruction. Stable left adrenal nodule. Assessment & Plan - Diagnosis (1) Abdominal pain Qualifiers: Abdominal location: lower abdomen, unspecified Qualified Code(s): R10.30 - Lower abdominal pain, unspecified Is this a current diagnosis for this admission?: Yes (2) Vomiting Qualifiers: Vomiting type: unspecified Vomiting Intractability: unspecified Nausea p resence: with nausea Qualified Code(s): R11.2 - Nausea with vomiting, unspecified Is this a current diagnosis for this admission?: Yes - Plan Summary Plan Summary: A/ 58 y/o female, with multiple medical issues, seen in the ED for abdominal tightness and emesis No previous hx of abdominal surgery No celina abdominal pain elicited during interview or during physical examination On PE, abdomen is nondistended, nontender, hypoactive bowel sounds CT A/P with IV and oral contrast shows no acute findings except for dilated loops of small bowel, no celina volvulus, hernia, mass, or transition point due to adhesions P/ Due the above assessment, I do not identify any acute surgical condition which may cause the patient symptoms and findings. Rather, I suspect either a viral condition affecting the small bowel (enteritis) or another not identified medical condition causing a reflex ileus. In any event, with the current hx, physical exam findings, labs, and CT report I do not believe the patient requires attention from the Surgical Service. Patient to be admitted by the medical service, I will sign off. Please, call the Surgical Service if the clinical picture changes.
--- NOTE | 2018-12-07 22:15 | EKG REPORT ---
SEVERITY:- NORMAL ECG - SINUS RHYTHM : Confirmed by: Kraig Self MD 07-Dec-2018 22:14:07
[2018-12-07] MEDS ORDERED: OXYCODONE-ACETAMINOPHEN 5-325 MG TABLET PO PRN (23:16)
[2018-12-07] MEDS: ONDANSETRON HCL INJ/PF 4 MG/2 ML SDV IV PRN (23:23)
--- NOTE | 2018-12-08 08:34 | PDOC PROGRESS REPORT ---
Subjective Progress Note for:: 12/08/18 Subjective:: c/o abd pain and distension no flautus or stool Reason For Visit: NAUSEA AND VOMITING, URINARY TRACT INFECTION Physical Exam Vital Signs: Temp Pulse Resp BP Pulse Ox 97.7 F 88 14 154/82 H 97 12/08/18 00:56 12/08/18 00:56 12/08/18 00:56 12/08/18 00:56 12/08/18 00:56 Intake & Output 12/07/18 12/08/18 12/09/18 06:59 06:59 06:59 Weight 132.3 kg General appearance: PRESENT: mild distress Head exam: PRESENT: normocephalic Eye exam: PRESENT: EOMI Mouth exam: PRESENT: moist Teeth exam: PRESENT: poor dentation Neck exam: PRESENT: full ROM Respiratory exam: PRESENT: clear to auscultation christine Cardiovascular exam: PRESENT: RRR Pulses: PRESENT: normal radial pulses, normal femoral pulses Vascular exam: PRESENT: normal capillary refill GI/Abdominal exam: PRESENT: distended, firm, hypoactive bowel sounds Rectal exam: PRESENT: deferred Extremities exam: PRESENT: full ROM Musculoskeletal exam: PRESENT: full ROM Neurological exam: PRESENT: alert, awake, oriented to person, oriented to place Results Laboratory Results: 12/07/18 11:15 12/07/18 11:15 12/07/18 12/07/18 12/07/18 11:15 11:15 11:15 WBC 12.8 H RBC 4.07 Hgb 10.2 L Hct 32.3 L MCV 80 MCH 25.1 L MCHC 31.6 L RDW 18.6 H Plt Count 280 Seg Neutrophils % 86.4 H Lymphocytes % 9.4 L Monocytes % 2.8 L Eosinophils % 0.9 Basophils % 0.5 Absolute Neutrophils 11.1 H Absolute Lymphocytes 1.2 Absolute Monocytes 0.4 Absolute Eosinophils 0.1 Absolute Basophils 0.1 Sodium 142.2 Potassium 4.3 Chloride 103 Carbon Dioxide 26 Anion Gap 13 BUN 14 Creatinine 1.08 Est GFR ( Amer) > 60 Est GFR (Non-Af Amer) 52 L Glucose 191 H Calcium 10.7 H Total Bilirubin 0.4 AST 18 ALT 18 Alkaline Phosphatase 186 H Total Protein 8.6 H Albumin 4.6 Lipase 92.5 Urine Color Urine Appearance Urine pH Ur Specific [place] Urine Protein Urine Glucose (UA) Urine Ketones Urine Blood Urine Nitrite Ur Leukocyte Esterase Urine WBC (Auto) Urine RBC (Auto) 12/07/18 13:40 WBC RBC Hgb Hct MCV MCH MCHC RDW Plt Count Seg Neutrophils % Lymphocytes % Monocytes % Eosinophils % Basophils % Absolute Neutrophils Absolute Lymphocytes Absolute Monocytes Absolute Eosinophils Absolute Basophils Sodium Potassium Chloride Carbon Dioxide Anion Gap BUN Creatinine Est GFR ( Amer) Est GFR (Non-Af Amer) Glucose Calcium Total Bilirubin AST ALT Alkaline Phosphatase Total Protein Albumin Lipase Urine Color YELLOW Urine Appearance CLOUDY Urine pH 6.0 Ur Specific [place] 1.019 Urine Protein NEGATIVE Urine Glucose (UA) NEGATIVE Urine Ketones NEGATIVE Urine Blood NEGATIVE Urine Nitrite NEGATIVE Ur Leukocyte Esterase MODERATE H Urine WBC (Auto) 51 Urine RBC (Auto) 1 Impressions: Abdomen/Pelvis CT 12/07/18 00:00 IMPRESSION: Small bowel obstruction. Stable left adrenal nodule. Status: Pending Assessment & Plan - Plan Summary Plan Summary: pt remains distended, tympanitic states she has not had a bm for 2 wks. vomited this am ct reviewed, no obvious transitition pt of obstruction pt need ng tube for decompression.
[2018-12-08] MEDS ORDERED: PHARMACY COMMUNICATION ORDER MC NR (08:45)
[2018-12-08] MEDS ORDERED: OXYCODONE-ACETAMINOPHEN 5-325 MG TABLET NG PRN (08:52)
[2018-12-08] MEDS ORDERED: ALBUTEROL SULFATE HFA (90 MCG/PUFF) 200 PUFF/8.5 GM MDI IH PRN (09:59)
[2018-12-08] MEDS ORDERED: AMMONIUM LACTATE TOP SCH (10:00)
[2018-12-08] MEDS ORDERED: (PENDING PHARMACY ID) (Aripiprazole [Abilify 30 Mg Tablet] 15 MG) PO SCH (10:00)
[2018-12-08] MEDS ORDERED: TOPIRAMATE 25 MG PO SCH (10:00)
[2018-12-08] MEDS ORDERED: NORMAL SALINE 1000 ML 1,000 ML IV PRN (10:03)
--- NOTE | 2018-12-08 11:02 | RADIOLOGY REPORT (SQ) ---
EXAM DESCRIPTION: ACUTE ABDOMEN SERIES COMPLETED DATE/TIME: 12/08/2018 10:44 am REASON FOR STUDY: Abdominal pain. R41.82 ALTERED MENTAL STATUS, UNSPECIFIED COMPARISON: None. NUMBER OF VIEWS: Three views. TECHNIQUE: Frontal chest, supine abdomen and upright/decubitus abdomen radiographic images acquired. LIMITATIONS: None. FINDINGS: CHEST: Small left pleural effusion. FREE AIR: None. No abnormal gas collections. BOWEL GAS PATTERN: Mild gastric distention. Dilated loops of small bowel in the left lower quadrant. Gas within nondilated colon. CALCIFICATIONS: No suspicious calcifications. HARDWARE: None in the abdomen. SOFT TISSUES: No gross mass or suggestion of organomegaly. BONES: No acute fracture. No worrisome bone lesions. OTHER: Nasogastric tube tip overlying stomach. IMPRESSION: Ileus or partial small bowel obstruction. TECHNICAL DOCUMENTATION: JOB ID: [id number] [employer]- All Rights Reserved Reading location - IP/workstation name: [email or web address]
[2018-12-08] MEDS: ONDANSETRON HCL INJ/PF 4 MG/2 ML SDV IV PRN (11:17)
--- NOTE | 2018-12-08 12:45 | PDOC H&P ---
History of Present Illness Admission Date/PCP: 12/07/18 19:12 [facility] Patient complains of: Nausea and Vomiting History of Present Illness: SANTOS NAVARRO is a 58 year old female known to my practice who presented to the ED with 2 weeks history of constipation, new onset nausea, recurrent vomiting and generalized abdominal pain. Patient reported associated bloating and abdominal distention. She reported two episodes of tarry watery stool. She denied any fev er or chills. She denied dysuria, hematuria or flank pain. Patient denies chest pain or shortness of breath. Her initial evaluation in the ED was remarkable for abdominal distention, hypoactive bowel sounds, generalized abdominal tenderness and concern for possible intra-abdominal pathology. Her CT scan of abdomen and pelvis was not conclusive regarding bowel obstruction. Her urinalysis suggested possible UTI. She was seen in consultation by the on-call surgicalist with recommendation for medical management. Patient did admitted to taking Percocet three times daily for her chronic pain management. Her morbidities include Congestive Heart Failure, Coronary Artery Disease, Old myocardial infarction, s/p stent angioplasty, Hypercholesterolemia, Hypertension, Peripheral Vascular Disease, Asthma, COPD, Gastroesophageal Reflux Disease, Sleep Apnea, Diabetes Mellitus Type 2, Hypothyroidism, Bipolar Disorder with Depression, Post Traumatic Stress Disorder, and Schizophrenia. Past Medical History Cardiac Medical History: Reports: Congestive Heart Failure, Coronary Artery Disease, Myocardial Infarction - 2 STENTS, Hyperlipidema, Hypertension, Peripheral Vascular Disease Denies: Heart Murmur Pulmonary Medical History: Reports: Asthma, Bronchitis, Chronic Obstructive Pulmonary Disease (COPD) - WEARS 2 LNC 24HRS/DAY, Sleep Apnea Denies: Pneumonia, Respiratory Failure, Tuberculosis EENT Medical History: Reports: None Neurological Medical History: Reports: Migraine Denies: Seizures Endocrine Medical History: Reports: Diabetes Mellitus Type 2, Hyperthyroidism, Hypothyroidism Renal/ Medical History: Reports: End Stage Renal Disease - Stage IV, no dialysis yet Malignancy Medical History: Reports: None GI Medical History: Reports: Gastroesophageal Reflux Disease Musculoskeltal Medical History: Reports: Fibromyalgia Denies: Arthritis Skin Medical History: Reports: None Psychiatric Medical History: Reports: Bipolar Disorder, Depression, Post Traumatic Stress Disorder Hematology: Denies: Anemia, Hemophilia, Sickle Cell Disease, Bleeding Tendencies Infectious Medical History: Past Surgical History Past Surgical History: Reports: Cardiac Catheterization, Section - x2, Coronary Artery Bypass Graft, Coronary Stent - x2, Hysterectomy, Orthopedic Surgery, Tubal Ligation, Other - multiple colonoscopies for lower GI bleed Denies: Amputation Social History Smoking Status: Never Smoker Frequency of Alcohol Use: None Hx Recreational Drug Use: No Drugs: None Hx Prescription Drug Abuse: No - Advance Directive Resuscitation Status: Full Code Family History Family History: None, Hypertension Parental Family History Reviewed: Yes Children Family History Reviewed: Yes Sibling(s) Family History Reviewed.: Yes Medication/Allergy Home Medications: Albuterol Sulfate [Proair HFA Inhalation Aerosol 8.5 gm MDI] 2 puff IH Q4HP PRN 12/07/18 Amitriptyline HCl [Elavil 150 mg Tablet] 150 mg PO QHS 12/07/18 Ammonium Lactate [Amlactin] 1 applic TOP TID 12/07/18 Aripiprazole [Abilify 30 mg Tablet] 15 mg PO BID 12/07/18 Atorvastatin Calcium [Lipitor 40 mg Tablet] 40 mg PO QHS 12/07/18 Benztropine Mesylate [Cogentin 1 mg Tablet] 1 mg PO BID 12/07/18 Budesonide/Formoterol Fumarate [Symbicort HFA 160-4.5 mcg Inhaler 6 gm] 2 puff IH Q12 12/07/18 Bupropion HCl [Wellbutrin Sr 150 mg Tablet] 150 mg PO QPM 12/07/18 Clotrimazole/Betamethasone Dip [Lotrisone Cream] 1 applic TOP BID 12/07/18 Doxepin HCl [Sinequan 10 mg Capsule] 10 mg PO QHS 12/07/18 Duloxetine HCl [Cymbalta] 60 mg PO BID 12/07/18 Furosemide [Lasix 40 mg Tablet] 40 mg PO BID 12/07/18 Gabapentin [Neurontin 300 mg Capsule] 300 mg PO BID 12/07/18 Hydrocortisone [Hydrocortisone 2.5% Cream 28 gm (Clinic Use)] 1 applic TOP BID 12/07/18 Hydroxyzine HCl [Atarax 25 mg Tablet] 25 mg PO Q8HP PRN 12/07/18 Insulin Glargine,Hum.rec.anlog [Lantus Insulin 100 Unit/1 ml 10 ml] 55 units SQ QPM 12/07/18 Insulin Glargine,Hum.rec.anlog [Lantus Insulin 100 Unit/1 ml 10 ml] 65 units SQ QPM 12/07/18 Insulin Lispro [Humalog Kwikpen U-100] 0 units SQ .PERSLIDINGSCALE 12/07/18 Irbesartan [Avapro] 150 mg PO QAM 12/07/18 Levothyroxine Sodium 50 mcg PO Q6AM 12/07/18 Liraglutide [Victoza 2-Armando] 1.8 mg SQ DAILY 12/07/18 Methocarbamol [Robaxin 500 mg Tablet] 500 mg PO TIDP PRN 12/07/18 Naloxegol Oxalate [Movantik 25 mg Tablet] 25 mg PO QAM 12/07/18 Nitroglycerin [Nitro-Dur 5 mg (0.2 mg/Hr) Transdermal Patch] 1 patch TD DAILY 12/07/18 Omeprazole 40 mg PO Q12 12/07/18 Oxycodone HCl/Acetaminophen [Percocet 10-325 mg Tablet] 1 tab PO Q8HP PRN 12/07/18 Saxagliptin HCl [Onglyza] 2.5 mg PO QAM 12/07/18 Silver Sulfadiazine [Ssd] 1 applic TOP BID 12/07/18 Topiramate [Topamax] 25 mg PO BID 12/07/18 Allergies/Adverse Reactions: cephalexin monohydrate [From Keflex] Allergy (Unknown, Verified 12/07/18 10:54) codeine [Codeine] Allergy (Unknown, Verified 12/07/18 10:54) dicyclomine HCl [From Bentyl] Allergy (Unknown, Verified 12/07/18 10:54) hydrocodone bitartrate [From Vicodin] Allergy (Unknown, Verified 12/07/18 10:54) meloxicam [From Mobic] Allergy (Unknown, Verified 12/07/18 10:54) meperidine HCl [From Demerol (PF)] Allergy (Unknown, Verified 12/07/18 10:54) morphine [Morphine] Allergy (Unknown, Verified 12/07/18 10:54) naproxen sodium [From Naprelan CR Dosepak] Allergy (Unknown, Verified 12/07/18 10:54) nitrofurantoin [From Macrobid] Allergy (Unknown, Verified 12/07/18 10:54) pantoprazole sodium [From Protonix] Allergy (Unknown, Verified 12/07/18 10:54) Penicillins Allergy (Unknown, Verified 03/16/18 15:29) Sulfa (Sulfonamide Antibiotics) Allergy (Unknown, Verified 03/16/18 15:29) aspirin Allergy (Verified 03/16/18 15:29) lamotrigine [From Lamictal] Allergy (Verified 03/16/18 15:29) rash Review of Systems Constitutional: ABSENT: chills, fever(s), headache(s), weight gain, weight loss Eyes: ABSENT: visual disturbances Ears: ABSENT: hearing changes Nose, Mouth, and Throat: ABSENT: as per HPI, headache(s), mouth pain, sore throat, vertigo, other Cardiovascular: ABSENT: chest pain, dyspnea on exertion, edema, orthropnea, palpitations Respiratory: ABSENT: cough, hemoptysis Gastrointestinal: PRESENT: abdominal pain, bloating, constipation, diarrhea, hematochezia, melena, nausea, vomiting Genitourinary: ABSENT: dysuria, hematuria Musculoskeletal: ABSENT: joint swelling Integumentary: ABSENT: rash, wounds Neurological: ABSENT: abnormal gait, abnormal speech, confusion, dizziness, focal weakness, syncope Psychiatric: ABSENT: anxiety, depression, homidical ideation, suicidal ideation Endocrine: ABSENT: cold intolerance, heat intolerance, polydipsia, polyuria Hematologic/Lymphatic: ABSENT: easy bleeding, easy bruising, lymphadenopathy Allergic/Immunologic: ABSENT: seasonal rhinorrhea Physical Exam Vital Signs: Temp Pulse Resp BP Pulse Ox 97.4 F 86 18 132/73 H 99 12/08/18 08:00 12/08/18 08:00 12/08/18 08:00 12/08/18 08:00 12/08/18 08:00 Intake & Output 12/07/18 12/08/18 12/09/18 06:59 06:59 06:59 Weight 132.3 kg General appearance: PRESENT: mild distress - from NGT in situ, morbidly obese Head exam: PRESENT: atraumatic, normocephalic Eye exam: PRESENT: conjunctiva pink, EOMI, PERRLA. ABSENT: scleral icterus Ear exam: PRESENT: normal external ear exam Mouth exam: PRESENT: moist Teeth exam: PRESENT: poor dentation Neck exam: PRESENT: full ROM. ABSENT: carotid bruit, JVD, lymphadenopathy, thyromegaly Respiratory exam: PRESENT: clear to auscultation christine Cardiovascular exam: PRESENT: RRR. ABSENT: diastolic murmur, rubs, systolic murmur Vascular exam: ABSENT: pallor GI/Abdominal exam: PRESENT: distended - less distended as per patient evaluation since NG tube placement, normal bowel sounds, soft. ABSENT: guarding, mass, organolmegaly, tenderness Rectal exam: PRESENT: deferred Gentrourinary exam: PRESENT: indwelling catheter Extremities exam: PRESENT: pedal edema - chronic 1+ bilateral Musculoskeletal exam: PRESENT: deformity - related to arthritis involvement Neurological exam: PRESENT: alert, awake, oriented to person, oriented to place, oriented to time, oriented to situation, CN II-XII grossly intact. ABSENT: motor sensory deficit Psychiatric exam: PRESENT: appropriate affect, normal mood. ABSENT: homicidal ideation, suicidal ideation Skin exam: PRESENT: dry, warm Results Laboratory Results: 12/07/18 11:15 12/07/18 11:15 12/07/18 12/07/18 11:15 13:40 Lipase 92.5 Urine Color YELLOW Urine Appearance CLOUDY Urine pH 6.0 Ur Specific [place] 1.019 Urine Protein NEGATIVE Urine Glucose (UA) NEGATIVE Urine Ketones NEGATIVE Urine Blood NEGATIVE Urine Nitrite NEGATIVE Ur Leukocyte Esterase MODERATE H Urine WBC (Auto) 51 Urine RBC (Auto) 1 Impressions: Abdomen/Pelvis CT 12/07/18 00:00 IMPRESSION: Small bowel obstruction. Stable left adrenal nodule. Acute Abdomen Series 12/08/18 00:00 IMPRESSION: Ileus or partial small bowel obstruction. Assessment & Plan - Diagnosis (1) Constipation due to opioid therapy Is this a current diagnosis for this admission?: Yes Plan: See admitting attending physician orders for details of care plan. (2) Drug-induced ileus Is this a current diagnosis for this admission?: Yes Plan: See admitting attending physician orders for details of care plan. (3) Chronic prescription opiate use Plan: See admitting attending physician orders for details of care plan. (4) UTI (urinary tract infection), bacterial Is this a current diagnosis for this admission?: Yes Plan: See admitting attending physician orders for details of care plan. (5) 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 Is this a current diagnosis for this admission?: Yes Plan: See admitting attending physician orders for details of care plan. (6) HTN (hypertension) Qualifiers: Hypertension type: essential hypertension Qualified Code(s): I10 - Essential (primary) hypertension Is this a current diagnosis for this admission?: Yes Plan: See admitting attending physician orders for details of care plan. (7) Coronary artery disease without angina pectoris Qualifiers: Coronary Disease-Associated Artery/Lesion type: [place] artery [place] vs. transplanted heart: [place] heart Qualified Code(s): I25.10 - Atherosclerotic heart disease of [place] coronary artery without angina pectoris Plan: See admitting attending physician orders for details of care plan. (8) COPD (chronic obstructive pulmonary disease) Qualifiers: COPD type: unspecified COPD Qualified Code(s): J44.9 - Chronic obstructive pulmonary disease, unspecified Is this a current diagnosis for this admission?: Yes Plan: See admitting attending physician orders for details of care plan. (9) Hypothyroidism Qualifiers: Hypothyroidism type: unspecified Qualified Code(s): E03.9 - Hypothyroidism, unspecified Is this a current diagnosis for this admission?: Yes Plan: See admitting attending physician orders for details of care plan. (10) Chronic schizoaffective disorder Is this a current diagnosis for this admission?: Yes Plan: See admitting attending physician orders for details of care plan. (11) PTSD (post-traumatic stress disorder) Is this a current diagnosis for this admission?: Yes Plan: See admitting attending physician orders for details of care plan. (12) Morbid obesity Is this a current diagnosis for this admission?: Yes Plan: See admitting attending physician orders for details of care plan. 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
[2018-12-08] MEDS ORDERED: POLYETHYLENE GLYCOL 3350 POWDER 17 GM/1 PACKET PO ONE ×2 (13:00→16:00)
[2018-12-08] MEDS ORDERED: ACETAMINOPHEN SOLN 325 MG/10.15 ML UDCUP PO PRN (13:28)
[2018-12-08] MEDS: AMMONIUM LACTATE 12% LOTION 225GM BOTTLE TP SCH ×2 (15:35→18:54)
[2018-12-08] MEDS: FAMOTIDINE 20 MG TABLET PO SCH ×2 (15:37→22:49)
[2018-12-08] MEDS: NITROGLYCERIN 5 MG (0.2 MG/HR) PATCH.TD24 TD SCH (15:38)
[2018-12-08] MEDS ORDERED: DEXTROSE 5%-WATER 1000 ML 1,000 ML IV PRN (17:31)
[2018-12-08] MEDS ORDERED: (PENDING PHARMACY ID) (Bupropion Hcl [Wellbutrin Sr 150 Mg Tablet] 150 MG) PO SCH (18:00)
[2018-12-08] MEDS: SILVER SULFADIAZINE 1% CREAM 50 GM TOP SCH (18:00)
[2018-12-08] MEDS: LEVOFLOXACIN 500 MG/D5W RTU 500 MG/100 ML RTUPB IV SCH (18:32)
[2018-12-08] MEDS: GABAPENTIN 300 MG CAPSULE PO SCH (18:32)
[2018-12-08] MEDS: BUPROPION HCL 75 MG TABLET PO SCH (18:33)
[2018-12-08] MEDS: BENZTROPINE MESYLATE 1 MG TABLET PO SCH (18:33)
[2018-12-08] MEDS: ARIPIPRAZOLE 5 MG TABLET PO SCH (18:35)
[2018-12-08] MEDS: CLOTRIMAZOLE/BETAMETHASONE DIP CREAM 15 GM TOP SCH (18:36)
[2018-12-08 19:13] LABS: URINE AMPHETAMINES SCREEN NEGATIVE; URINE BARBITURATES SCREEN NEGATIVE; URINE BENZODIAZEPINES SCREEN NEGATIVE; URINE COCAINE SCREEN NEGATIVE; URINE MARIJUANA (THC) SCREEN NEGATIVE; URINE METHADONE SCREEN NEGATIVE; URINE PHENCYCLIDINE SCREEN NEGATIVE
[2018-12-08] MEDS ORDERED: AMITRIPTYLINE HCL 150 MG PO SCH (22:00)
[2018-12-08] MEDS: DULOXETINE HCL 30 MG CAPSULE.DR PO SCH (22:49)
[2018-12-08] MEDS: AMITRIPTYLINE HCL 75 MG TABLET PO SCH (22:49)
[2018-12-08] MEDS: TOPIRAMATE 25 MG TABLET PO SCH (22:49)
[2018-12-08] MEDS: DOXEPIN HCL 10 MG CAPSULE PO SCH (22:49)
[2018-12-08] MEDS: ATORVASTATIN CALCIUM 40 MG TABLET PO SCH (22:49)
[2018-12-09] MEDS: LEVOTHYROXINE SODIUM 0.05 MG TABLET PO SCH (05:15)
[2018-12-09] MEDS: BUPROPION HCL 75 MG TABLET PO SCH ×2 (05:15→18:56)
[2018-12-09] MEDS ORDERED: LEVOTHYROXINE SODIUM 0.05 MG TABLET PO ONE (08:00)
[2018-12-09] MEDS ORDERED: (PENDING PHARMACY ID) (Naloxegol Oxalate 25 MG) PO SCH (08:00)
[2018-12-09] MEDS ORDERED: (PENDING PHARMACY ID) (Irbesartan [Avapro] 150 MG) PO SCH (08:00)
[2018-12-09] MEDS ORDERED: BUPROPION HCL 75 MG TABLET PO ONE (08:00)
[2018-12-09] MEDS: ENOXAPARIN SODIUM INJ 40 MG/0.4 ML DISP.SYRIN SUBCUT SCH (10:52)
[2018-12-09] MEDS: FLUTICASONE/VILANTEROL 200-25 MCG/DOSE IH SCH (10:53)
[2018-12-09] MEDS: ARIPIPRAZOLE 5 MG TABLET PO SCH ×2 (10:54→18:57)
[2018-12-09] MEDS: FAMOTIDINE 20 MG TABLET PO SCH ×2 (10:56→21:25)
[2018-12-09] MEDS: BENZTROPINE MESYLATE 1 MG TABLET PO SCH ×2 (10:56→18:56)
[2018-12-09] MEDS: DULOXETINE HCL 30 MG CAPSULE.DR PO SCH ×2 (10:56→21:25)
[2018-12-09] MEDS: NITROGLYCERIN 5 MG (0.2 MG/HR) PATCH.TD24 TD SCH (10:57)
[2018-12-09] MEDS: GABAPENTIN 300 MG CAPSULE PO SCH ×2 (11:00→18:56)
[2018-12-09] MEDS: LOSARTAN POTASSIUM 50 MG TABLET PO SCH (11:00)
[2018-12-09] MEDS: AMMONIUM LACTATE 12% LOTION 225GM BOTTLE TP SCH ×3 (11:01→18:56)
[2018-12-09] MEDS: TOPIRAMATE 25 MG TABLET PO SCH ×2 (11:01→21:25)
[2018-12-09] MEDS: SILVER SULFADIAZINE 1% CREAM 50 GM TOP SCH ×2 (11:03→18:50)
[2018-12-09] MEDS: CLOTRIMAZOLE/BETAMETHASONE DIP CREAM 15 GM TOP SCH ×2 (11:03→18:56)
--- NOTE | 2018-12-09 13:38 | PDOC PROGRESS REPORT ---
Subjective Progress Note for:: 12/09/18 Subjective:: feels much better after multiple bm's yesterday after enemas Reason For Visit: NAUSEA AND VOMITING, URINARY TRACT INFECTION Physical Exam Vital Signs: Temp Pulse Resp BP Pulse Ox 98.5 F 73 18 121/61 100 12/09/18 12:00 12/09/18 12:00 12/09/18 12:00 12/09/18 12:00 12/09/18 12:00 Intake & Output 12/08/18 12/09/18 12/10/18 06:59 06:59 06:59 Intake Total 1100 1100 Output Total 1 Balance 1100 1099 Weight 132.3 kg 135 kg General appearance: PRESENT: no acute distress Head exam: PRESENT: normocephalic Eye exam: PRESENT: EOMI Ear exam: PRESENT: normal external ear exam Mouth exam: PRESENT: moist Neck exam: PRESENT: full ROM Respiratory exam: PRESENT: clear to auscultation christine Cardiovascular exam: PRESENT: RRR Pulses: PRESENT: normal radial pulses, normal femoral pulses GI/Abdominal exam: PRESENT: soft Rectal exam: PRESENT: deferred Extremities exam: PRESENT: full ROM Musculoskeletal exam: PRESENT: full ROM Neurological exam: PRESENT: alert, awake, oriented to person, oriented to place Skin exam: PRESENT: dry Results Laboratory Results: 12/07/18 11:15 12/07/18 11:15 Impressions: Abdomen/Pelvis CT 12/07/18 00:00 IMPRESSION: Small bowel obstruction. Stable left adrenal nodule. Acute Abdomen Series 12/08/18 00:00 IMPRESSION: Ileus or partial small bowel obstruction. Assessment & Plan - Plan Summary Plan Summary: ng with min op last 2 shifts pt now passing flatus and stool will dc ng start clears prob abd distension due to constipation.
--- NOTE | 2018-12-09 13:45 | PDOC PROGRESS REPORT ---
Subjective Progress Note for:: 12/09/18 Subjective:: Off NG tube gastric suction. Tolerating clear liquid. Satisfactory bowel movement since last clinical evaluation. No chest pain or difficulty with breathing. Reason For Visit: NAUSEA AND VOMITING, URINARY TRACT INFECTION Physical Exam Vital Signs: Temp Pulse Resp BP Pulse Ox 98.5 F 73 18 121/61 100 12/09/18 12:00 12/09/18 12:00 12/09/18 12:00 12/09/18 12:00 12/09/18 12:00 Intake & Output 12/08/18 12/09/18 12/10/18 06:59 06:59 06:59 Intake Total 1100 1100 Output Total 1 Balance 1100 1099 Weight 132.3 kg 135 kg General appearance: PRESENT: morbidly obese Head exam: PRESENT: atraumatic, normocephalic Ear exam: PRESENT: normal external ear exam Mouth exam: PRESENT: moist Respiratory exam: PRESENT: clear to auscultation christine Cardiovascular exam: PRESENT: RRR. ABSENT: diastolic murmur, rubs, systolic murmur Vascular exam: ABSENT: pallor GI/Abdominal exam: PRESENT: normal bowel sounds, soft. ABSENT: distended, guarding, mass, organolmegaly, rebound, tenderness Extremities exam: PRESENT: pedal edema - singnifcantly improved with leg elevation Neurological exam: PRESENT: alert, awake, oriented to person, oriented to place, oriented to time, oriented to situation, CN II-XII grossly intact. ABSENT: motor sensory deficit Psychiatric exam: PRESENT: appropriate affect, normal mood. ABSENT: homicidal ideation, suicidal ideation Skin exam: PRESENT: dry, warm, other - statis changes in legs. Results Laboratory Results: 12/07/18 11:15 12/07/18 11:15 Impressions: Abdomen/Pelvis CT 12/07/18 00:00 IMPRESSION: Small bowel obstruction. Stable left adrenal nodule. Acute Abdomen Series 12/08/18 00:00 IMPRESSION: Ileus or partial small bowel obstruction. Assessment & Plan - Diagnosis (1) Constipation due to opioid therapy Is this a current diagnosis for this admission?: Yes (2) Drug-induced ileus Is this a current diagnosis for this admission?: Yes (4) UTI (urinary tract infection), bacterial Is this a current diagnosis for this admission?: Yes (5) 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 Is this a current diagnosis for this admission?: Yes (6) HTN (hypertension) Qualifiers: Hypertension type: essential hypertension Qualified Code(s): I10 - Essential (primary) hypertension Is this a current diagnosis for this admission?: Yes (7) Coronary artery disease without angina pectoris Qualifiers: Coronary Disease-Associated Artery/Lesion type: [place] artery [place] vs. transplanted heart: [place] heart Qualified Code(s): I25.10 - Atherosclerotic heart disease of [place] coronary artery without angina pectoris Is this a current diagnosis for this admission?: Yes (8) COPD (chronic obstructive pulmonary disease) Qualifiers: COPD type: unspecified COPD Qualified Code(s): J44.9 - Chronic obstructive pulmonary disease, unspecified Is this a current diagnosis for this admission?: Yes (9) Hypothyroidism Qualifiers: Hypothyroidism type: unspecified Qualified Code(s): E03.9 - Hypothyroidism, unspecified Is this a current diagnosis for this admission?: Yes (10) Chronic schizoaffective disorder Is this a current diagnosis for this admission?: Yes (11) PTSD (post-traumatic stress disorder) Is this a current diagnosis for this admission?: Yes (12) Morbid obesity Is this a current diagnosis for this admission?: Yes - Time Time Spent with patient: 25-34 minutes Medications reviewed and adjusted accordingly: Yes Anticipated discharge: Home with Homehealth Within: Other - Inpatient Certification Based on my medical assessment, after consideration of the patient's comorbidities, presenting symptoms, or acuity I expect that the services needed warrant INPATIENT care.: Yes I certify that my determination is in accordance with my understanding of Medicare's requirements for reasonable and necessary INPATIENT services [42 CFR 412.3e].: Yes Medical Necessity: Significant Comorbidiites Make Outpatient Treatment Too Risky, Need Close Monitoring Due to Risk of Patient Decompensation, Need For IV Fluids, Need for IV Antibiotics, Risk of Complication if Not Cared For in Hospital, Risk of Diagnosis Which Will Require Inpatient Eval/Care/Monitoring Post Hospital Care: 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 follow up on urine culture. Change IV fluid to normal saline at 75 ml/hour.
[2018-12-09] MEDS: NORMAL SALINE 1000 ML 1,000 ML IV PRN (15:20)
[2018-12-09] MEDS: LEVOFLOXACIN 500 MG/D5W RTU 500 MG/100 ML RTUPB IV SCH (18:54)
[2018-12-09] MEDS ORDERED: DEXTROSE 40% GEL 15 GM TUBE X 2 PO PRN (20:00)
[2018-12-09] MEDS ORDERED: GLUCAGON,HUMAN RECOMB 1 MG INJ IM PRN (20:00)
[2018-12-09] MEDS ORDERED: DEXTROSE 40% GEL 15 GM TUBE PO PRN (20:00)
[2018-12-09] MEDS ORDERED: DEXTROSE 50%-WATER SYRINGE 12.5 GM/25 ML DOSE IV PRN (20:00)
[2018-12-09] MEDS ORDERED: DEXTROSE 50%-WATER SYRINGE 25 GM/50 ML DOSE IV PRN (20:00)
[2018-12-09] MEDS: ATORVASTATIN CALCIUM 40 MG TABLET PO SCH (21:25)
[2018-12-09] MEDS: INSULIN LISPRO 100 UNIT/ML 3 ML VIAL SUBCUT SCH (21:25)
[2018-12-09] MEDS: AMITRIPTYLINE HCL 75 MG TABLET PO SCH (21:26)
[2018-12-09] MEDS: DOXEPIN HCL 10 MG CAPSULE PO SCH (21:26)
[2018-12-10] MEDS: NORMAL SALINE 1000 ML 1,000 ML IV PRN ×2 (04:55→22:59)
[2018-12-10] MEDS: BUPROPION HCL 75 MG TABLET PO SCH ×2 (05:07→17:01)
[2018-12-10] MEDS: LEVOTHYROXINE SODIUM 0.05 MG TABLET PO SCH (05:07)
[2018-12-10 05:15] LABS: ABSOLUTE EOSINOPHILS # (AUTO) 0.2 10^3/uL (0.0-0.6); ABSOLUTE MONOCYTES (AUTO) 0.5 10^3/uL (0.1-1.4); ABSOLUTE NEUT (AUTO) 4.3 10^3/uL (1.7-8.2); BASOPHILS % (AUTO) 0.4 % (0-2); EOSINOPHILS % (AUTO) 2.9 % (0-6); HEMATOCRIT 29.8 % (36.0-47.0); HEMOGLOBIN 9.5 g/dL (12.0-15.5); MEAN CORPUSCULAR HEMOGLOBIN 25.3 pg (27.0-33.4); MEAN CORPUSCULAR VOLUME 79 fl (80-97); MONOCYTES % (AUTO) 7.8 % (3-13); PLATELET COUNT 248 10^3/uL (150-450); RED BLOOD COUNT 3.77 10^6/uL (3.72-5.28); SEGMENTED NEUTROPHILS % (AUTO) 60.9 % (42-78); TOTAL CELLS COUNTED % (AUTO) 100 %; WHITE BLOOD COUNT 7.1 10^3/uL (4.0-10.5)
[2018-12-10 05:41] LABS: ALANINE AMINOTRANSFERASE 14 U/L (9-52); ALBUMIN 3.5 g/dL (3.5-5.0); ALKALINE PHOSPHATASE 130 U/L (38-126); ANION GAP 10 (5-19); ASPARTATE AMINO TRANSFERASE 13 U/L (14-36); BILIRUBIN,DIRECT 0.2 mg/dL (0.0-0.4); BILIRUBIN,TOTAL 0.2 mg/dL (0.2-1.3); BLOOD UREA NITROGEN 8 mg/dL (7-20); CALCIUM 9.4 mg/dL (8.4-10.2); CARBON DIOXIDE 25 mmol/L (22-30); CHLORIDE 107 mmol/L (98-107); GLUCOSE 128 mg/dL (75-110); POTASSIUM 3.3 mmol/L (3.6-5.0); SODIUM 142.1 mmol/L (137-145); TOTAL PROTEIN 6.9 g/dL (6.3-8.2)
[2018-12-10] MEDS: INSULIN LISPRO 100 UNIT/ML 3 ML VIAL SUBCUT SCH ×4 (08:12→22:59)
[2018-12-10] MEDS: TOPIRAMATE 25 MG TABLET PO SCH ×2 (09:45→22:59)
[2018-12-10] MEDS: LOSARTAN POTASSIUM 50 MG TABLET PO SCH (09:45)
[2018-12-10] MEDS: DULOXETINE HCL 30 MG CAPSULE.DR PO SCH ×2 (09:45→22:59)
[2018-12-10] MEDS: FAMOTIDINE 20 MG TABLET PO SCH ×2 (09:45→22:59)
[2018-12-10] MEDS: ARIPIPRAZOLE 5 MG TABLET PO SCH ×2 (09:45→17:01)
[2018-12-10] MEDS: GABAPENTIN 300 MG CAPSULE PO SCH ×2 (09:46→17:01)
[2018-12-10] MEDS: NITROGLYCERIN 5 MG (0.2 MG/HR) PATCH.TD24 TD SCH (09:46)
[2018-12-10] MEDS: ENOXAPARIN SODIUM INJ 40 MG/0.4 ML DISP.SYRIN SUBCUT SCH (09:46)
[2018-12-10] MEDS: BENZTROPINE MESYLATE 1 MG TABLET PO SCH ×2 (09:46→17:01)
[2018-12-10] MEDS: FLUTICASONE/VILANTEROL 200-25 MCG/DOSE IH SCH (09:46)
[2018-12-10] MEDS: AMMONIUM LACTATE 12% LOTION 225GM BOTTLE TP SCH ×3 (09:48→17:01)
[2018-12-10] MEDS: CLOTRIMAZOLE/BETAMETHASONE DIP CREAM 15 GM TOP SCH ×2 (09:59→17:02)
[2018-12-10] MEDS: SILVER SULFADIAZINE 1% CREAM 50 GM TOP SCH ×2 (10:02→17:02)
--- NOTE | 2018-12-10 10:05 | PDOC PROGRESS REPORT ---
Subjective Progress Note for:: 12/10/18 Subjective:: Patient has no complaints; she is tolerating liquid diet. She would like to go home. Reason For Visit: CONSTIPATION DUE TO OPIATE PRESCRIPTION,DRUG Physical Exam Vital Signs: Temp Pulse Resp BP Pulse Ox 97.6 F 75 18 117/67 100 12/10/18 08:00 12/10/18 08:00 12/10/18 08:00 12/10/18 08:00 12/10/18 08:00 Intake & Output 12/09/18 12/10/18 12/11/18 06:59 06:59 06:59 Intake Total 1100 2637 Output Total 1 804 Balance 1099 1833 Weight 135 kg 135.5 kg General appearance: PRESENT: no acute distress GI/Abdominal exam: PRESENT: other - Soft, nontender no peritoneal signs no rigidity. Results Laboratory Results: 12/10/18 05:00 12/10/18 05:00 12/10/18 12/10/18 05:00 05:00 WBC 7.1 RBC 3.77 Hgb 9.5 L Hct 29.8 L MCV 79 L MCH 25.3 L MCHC 32.0 RDW 18.0 H Plt Count 248 Seg Neutrophils % 60.9 Lymphocytes % 28.0 Monocytes % 7.8 Eosinophils % 2.9 Basophils % 0.4 Absolute Neutrophils 4.3 Absolute Lymphocytes 2.0 Absolute Monocytes 0.5 Absolute Eosinophils 0.2 Absolute Basophils 0.0 Sodium 142.1 Potassium 3.3 L Chloride 107 Carbon Dioxide 25 Anion Gap 10 BUN 8 Creatinine 0.90 Est GFR ( Amer) > 60 Est GFR (Non-Af Amer) > 60 Glucose 128 H Calcium 9.4 Total Bilirubin 0.2 AST 13 L ALT 14 Alkaline Phosphatase 130 H Total Protein 6.9 Albumin 3.5 Impressions: Abdomen/Pelvis CT 12/07/18 00:00 IMPRESSION: Small bowel obstruction. Stable left adrenal nodule. Acute Abdomen Series 12/08/18 00:00 IMPRESSION: Ileus or partial small bowel obstruction. Assessment & Plan - Diagnosis (1) Abdominal pain Qualifiers: Abdominal location: lower abdomen, unspecified Qualified Code(s): R10.30 - Lower abdominal pain, unspecified Is this a current diagnosis for this admission?: Yes Plan: Impression: Clinically improved abdominal pain; no indication for further diagnostic or therapeutic intervention. Recommendations: 1. Advance diet as tolerated 2. Anti-constipation bowel regimen patient's long dependence on narcotics 3. We will sign off for now; reconsult if clinically indicated.
--- NOTE | 2018-12-10 11:32 | PDOC PROGRESS REPORT ---
Subjective Progress Note for:: 12/10/18 Subjective:: No chest pain or difficulty with breathing. Tolerating clear liquid. No bowel movement since last clinical evaluation. No fever, chills, nausea or vomiting. Reason For Visit: CONSTIPATION DUE TO OPIATE PRESCRIPTION,DRUG Physical Exam Vital Signs: Temp Pulse Resp BP Pulse Ox 97.6 F 75 18 117/67 100 12/10/18 08:00 12/10/18 08:00 12/10/18 08:00 12/10/18 08:00 12/10/18 08:00 Intake & Output 12/09/18 12/10/18 12/11/18 06:59 06:59 06:59 Intake Total 1100 2637 Output Total 1 804 Balance 1099 1833 Weight 135 kg 135.5 kg Physical Exam: General appearance: PRESENT: morbidly obese Head exam: PRESENT: atraumatic, normocephalic Ear exam: PRESENT: normal external ear exam Mouth exam: PRESENT: moist Respiratory exam: PRESENT: clear to auscultation christine Cardiovascular exam: PRESENT: RRR. ABSENT: diastolic murmur, rubs, systolic murmur Vascular exam: ABSENT: pallor GI/Abdominal exam: PRESENT: normal bowel sounds, soft. ABSENT: distended, guarding, mass, organomegaly, rebound, tenderness Extremities exam: PRESENT: pedal edema - significantly improved with leg elevation Neurological exam: PRESENT: alert, awake, oriented to person, oriented to place, oriented to time, oriented to situation, CN II-XII grossly intact. ABSENT: motor sensory deficit Psychiatric exam: PRESENT: appropriate affect, normal mood. ABSENT: homicidal ideation, suicidal ideation Skin exam: PRESENT: dry, warm, other - stasis changes in legs. Results Laboratory Results: 12/10/18 05:00 12/10/18 05:00 12/10/18 12/10/18 05:00 05:00 WBC 7.1 RBC 3.77 Hgb 9.5 L Hct 29.8 L MCV 79 L MCH 25.3 L MCHC 32.0 RDW 18.0 H Plt Count 248 Seg Neutrophils % 60.9 Lymphocytes % 28.0 Monocytes % 7.8 Eosinophils % 2.9 Basophils % 0.4 Absolute Neutrophils 4.3 Absolute Lymphocytes 2.0 Absolute Monocytes 0.5 Absolute Eosinophils 0.2 Absolute Basophils 0.0 Sodium 142.1 Potassium 3.3 L Chloride 107 Carbon Dioxide 25 Anion Gap 10 BUN 8 Creatinine 0.90 Est GFR ( Amer) > 60 Est GFR (Non-Af Amer) > 60 Glucose 128 H Calcium 9.4 Total Bilirubin 0.2 AST 13 L ALT 14 Alkaline Phosphatase 130 H Total Protein 6.9 Albumin 3.5 12/09/18 17:40 Clean Catch Midstream Urine Culture - Final 8,000 col/ml Impressions: Abdomen/Pelvis CT 12/07/18 00:00 IMPRESSION: Small bowel obstruction. Stable left adrenal nodule. Acute Abdomen Series 12/08/18 00:00 IMPRESSION: Ileus or partial small bowel obstruction. 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 transplanted heart: [place] heart Qualified Code(s): I25.10 - Atherosclerotic heart disease of [place] coronary artery without angina pectoris Is this a current diagnosis for this admission?: Yes (8) COPD (chronic obstructive pulmonary disease) Qualifiers: COPD type: unspecified COPD Qualified Code(s): J44.9 - Chronic obstructive pulmonary disease, unspecified Is this a current diagnosis for this admission?: Yes (9) Hypothyroidism Qualifiers: Hypothyroidism type: unspecified Qualified Code(s): E03.9 - Hypothyroidism, unspecified Is this a current diagnosis for this admission?: Yes (10) Chronic schizoaffective disorder Is this a current diagnosis for this admission?: Yes (11) PTSD (post-traumatic stress disorder) Is this a current diagnosis for this admission?: Yes (12) Morbid obesity Is this a current diagnosis for this admission?: Yes - Time Time Spent with patient: 25-34 minutes Medications reviewed and adjusted accordingly: Yes Anticipated discharge: Home with Homehealth Within: Other - Inpatient Certification Based on my medical assessment, after consideration of the patient's comorbidities, presenting symptoms, or acuity I expect that the services needed warrant INPATIENT care.: Yes I certify that my determination is in accordance with my understanding of Medicare's requirements for reasonable and necessary INPATIENT services [42 CFR 412.3e].: Yes Medical Necessity: Significant Comorbidiites Make Outpatient Treatment Too Risky, Need Close Monitoring Due to Risk of Patient Decompensation, Need For Continuous Telemetry Monitoring, Need for IV Antibiotics, Risk of Complication if Not Cared For in Hospital, Risk of Diagnosis Which Will Require Inpatient Eval/Care/Monitoring Post Hospital Care: D/C Inside Phone Sales Documentation - Plan Summary Plan Summary: Advance diet to mechanical soft at lunch and regular consistency at dinner if tolerated. D/C IV Levofloxacin. Start on Levofloxacin 500 mg p.o daily. Order rollator wheelchair with seat and shower bench upon discharge.
[2018-12-10] MEDS: AMITRIPTYLINE HCL 75 MG TABLET PO SCH (22:58)
[2018-12-10] MEDS: ATORVASTATIN CALCIUM 40 MG TABLET PO SCH (22:59)
[2018-12-10] MEDS: DOXEPIN HCL 10 MG CAPSULE PO SCH (23:02)
[2018-12-11] MEDS: BUPROPION HCL 75 MG TABLET PO SCH (06:27)
[2018-12-11] MEDS: LEVOTHYROXINE SODIUM 0.05 MG TABLET PO SCH (06:27)
--- NOTE | 2018-12-11 08:28 | PDOC DISCHARGE SUMMARY ---
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 Is this a current diagnosis for this admission?: Yes (6) HTN (hypertension) Is this a current diagnosis for this admission?: Yes (7) Coronary artery disease without angina pectoris Is this a current diagnosis for this admission?: Yes (8) COPD (chronic obstructive pulmonary disease) Is this a current diagnosis for this admission?: Yes (9) Hypothyroidism Is this a current diagnosis for this admission?: Yes (10) Chronic schizoaffective disorder Is this a current diagnosis for this admission?: Yes (11) PTSD (post-traumatic stress disorder) Is this a current diagnosis for this admission?: Yes (12) Morbid obesity Is this a current diagnosis for this admission?: Yes - Additional Information Resuscitation Status: Full Code Prescriptions: Polyethylene Glycol 3350 [Miralax Powder 17 gm/Packet] 1 packet PO BID #60 pkg Home Medications: Albuterol Sulfate [Proair HFA Inhalation Aerosol 8.5 gm MDI] 2 puff IH Q4HP PRN 12/07/18 Amitriptyline HCl [Elavil 150 mg Tablet] 150 mg PO QHS 12/07/18 Ammonium Lactate [Amlactin] 1 applic TOP TID 12/07/18 Aripiprazole [Abilify 30 mg Tablet] 15 mg PO BID 12/07/18 Atorvastatin Calcium [Lipitor 40 mg Tablet] 40 mg PO QHS 12/07/18 Benztropine Mesylate [Cogentin 1 mg Tablet] 1 mg PO BID 12/07/18 Budesonide/Formoterol Fumarate [Symbicort HFA 160-4.5 mcg Inhaler 6 gm] 2 puff IH Q12 12/07/18 Bupropion HCl [Wellbutrin Sr 150 mg Tablet] 150 mg PO QPM 12/07/18 Clotrimazole/Betamethasone Dip [Lotrisone Cream] 1 applic TOP BID 12/07/18 Doxepin HCl [Sinequan 10 mg Capsule] 10 mg PO QHS 12/07/18 Duloxetine HCl [Cymbalta] 60 mg PO BID 12/07/18 Furosemide [Lasix 40 mg Tablet] 40 mg PO BID 12/07/18 Gabapentin [Neurontin 300 mg Capsule] 300 mg PO BID 12/07/18 Hydrocortisone [Hydrocortisone 2.5% Cream 28 gm (Clinic Use)] 1 applic TOP BID 12/07/18 Hydroxyzine HCl [Atarax 25 mg Tablet] 25 mg PO Q8HP PRN 12/07/18 Insulin Glargine,Hum.rec.anlog [Lantus Insulin 100 Unit/1 ml 10 ml] 55 units SQ QPM 12/07/18 Insulin Glargine,Hum.rec.anlog [Lantus Insulin 100 Unit/1 ml 10 ml] 65 units SQ QPM 12/07/18 Insulin Lispro [Humalog Kwikpen U-100] 0 units SQ .PERSLIDINGSCALE 12/07/18 Irbesartan [Avapro] 150 mg PO QAM 12/07/18 Levothyroxine Sodium 50 mcg PO Q6AM 12/07/18 Liraglutide [Victoza 2-Armando] 1.8 mg SQ DAILY 12/07/18 Methocarbamol [Robaxin 500 mg Tablet] 500 mg PO TIDP PRN 12/07/18 Nitroglycerin [Nitro-Dur 5 mg (0.2 mg/Hr) Transdermal Patch] 1 patch TD DAILY 12/07/18 Omeprazole 40 mg PO Q12 12/07/18 Oxycodone HCl/Acetaminophen [Percocet 10-325 mg Tablet] 1 tab PO Q8HP PRN 12/07/18 Saxagliptin HCl [Onglyza] 2.5 mg PO QAM 12/07/18 Silver Sulfadiazine [Ssd] 1 applic TOP BID 12/07/18 Topiramate [Topamax] 25 mg PO BID 12/07/18 Naloxegol Oxalate [Movantik 25 mg Tablet] 25 mg PO QAM #30 12/11/18 Polyethylene Glycol 3350 [Miralax Powder 17 gm/Packet] 1 packet PO BID #60 pkg 12/11/18 History of Present Illness History of Present Illness: SANTOS NAVARRO is a 58 year old female known to my practice who presented to the ED wi th 2 weeks history of constipation, new onset nausea, recurrent vomiting and generalized abdominal pain. Patient reported associated bloating and abdominal distention. She reported two episodes of tarry watery stool. She denied any fever or chills. She denied dysuria, hematuria or flank pain. Patient denies chest pain or shortness of breath. Her initial evaluation in the ED was remarkable for abdominal distention, hypoactive bowel sounds, generalized abdominal tenderness and concern for possible intra-abdominal pathology. Her CT scan of abdomen and pelvis was not conclusive regarding bowel obstruction. Her urinalysis suggested possible UTI. She was seen in consultation by the on-call surgicalist with recommendation for medical management. Patient did admitted to taking Percocet three times daily for her chronic pain management. Her morbidities include Hypertension, Congestive Heart Failure, Coronary Artery Disease, Old myocardial infarction, s/p stent angioplasty, Hypercholesterolemia, Peripheral Vascular Disease, Asthma, COPD, Gastroesophageal Reflux Disease, Sleep Apnea, Diabetes Mellitus Type 2, Hypothyroidism, Bipolar Disorder with Depression, Post Traumatic Stress Disorder, and Schizophrenia. Hospital Course Hospital Course: Patient was admitted for constipation with concern for possible bowel obstruction as suggested on CT scan. She was seen in consultation by surgicalist and managed conservatively with NGT placement for decompression of distended abdomen. She responded to laxative therapy with satisfactory bowel movement. She was on chronic opiate therapy for chronic pain management. 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 She was instructed on compliance with bowel movement regimen including Movantis as prescribed and addition of Miralax. She is toleration oral feeding without nausea. vomiting, or abdominal pain. She is agreeable to discharge home today. She will follow up in the office as instructed upon discharge. Physical Exam Vital Signs: Temp Pulse Resp BP Pulse Ox 98.6 F 88 17 124/68 100 12/10/18 23:59 12/10/18 23:59 12/10/18 23:59 12/10/18 23:59 12/10/18 23:59 Intake & Output 12/10/18 12/11/18 12/12/18 06:59 06:59 06:59 Intake Total 2637 8658 Output Total 804 1700 Balance 1833 1988 Weight 135.5 kg 135.1 kg Physical Exam: General appearance: PRESENT: no acute distress, morbidly obese Head exam: PRESENT: atraumatic, normocephalic Ear exam: PRESENT: normal external ear exam Mouth exam: PRESENT: moist Respiratory exam: PRESENT: clear to auscultation christine Cardiovascular exam: PRESENT: RRR. ABSENT: diastolic murmur, rubs, systolic murmur Vascular exam: ABSENT: pallor GI/Abdominal exam: PRESENT: normal bowel sounds, soft. ABSENT: distended, guarding, mass, organomegaly, rebound, tenderness Extremities exam: PRESENT: pedal edema - significantly improved with leg elevation Neurological exam: PRESENT: alert, awake, oriented to person, oriented to place, oriented to time, oriented to situation, CN II-XII grossly intact. ABSENT: motor sensory deficit Psychiatric exam: PRESENT: appropriate affect, normal mood. ABSENT: homicidal ideation, suicidal ideation Skin exam: PRESENT: dry, warm, other - stasis changes in legs. Results Laboratory Results: 12/10/18 05:00 12/10/18 05:00 12/09/18 17:40 Clean Catch Midstream Urine Culture - Final 8,000 col/ml Impressions: Abdomen/Pelvis CT 12/07/18 00:00 IMPRESSION: Small bowel obstruction. Stable left adrenal nodule. Acute Abdomen Series 12/08/18 00:00 IMPRESSION: Ileus or partial small bowel obstruction. Qualifiers - * PATIENT BEING DISCHARGED WITH ANY OF THE FOLLOWING DIAGNOSIS: No Acute Heart Failure - Is this a Heart Failure Patient?: No LVEF < 40%?: No- if no continue to question #3 3. Anticoagulant therapy for permanect/persistent/paraoxysmal Afib or Aflutter: N/A Follow-up Appointment scheduled within 7 days?: Yes Plan Discharge Plan: D/C home today. Follow up in the office as instructed upon discharge.
[2018-12-11] MEDS: FLUTICASONE/VILANTEROL 200-25 MCG/DOSE IH SCH (09:00)
[2018-12-11] MEDS: INSULIN LISPRO 100 UNIT/ML 3 ML VIAL SUBCUT SCH ×2 (09:00→11:29)
[2018-12-11] MEDS: FAMOTIDINE 20 MG TABLET PO SCH (09:01)
[2018-12-11] MEDS: ARIPIPRAZOLE 5 MG TABLET PO SCH (09:01)
[2018-12-11] MEDS: BENZTROPINE MESYLATE 1 MG TABLET PO SCH (09:01)
[2018-12-11] MEDS: GABAPENTIN 300 MG CAPSULE PO SCH (09:01)
[2018-12-11] MEDS: TOPIRAMATE 25 MG TABLET PO SCH (09:01)
[2018-12-11] MEDS: LOSARTAN POTASSIUM 50 MG TABLET PO SCH (09:01)
[2018-12-11] MEDS: DULOXETINE HCL 30 MG CAPSULE.DR PO SCH (09:01)
[2018-12-11] MEDS: AMMONIUM LACTATE 12% LOTION 225GM BOTTLE TP SCH (09:02)
[2018-12-11] MEDS: NITROGLYCERIN 5 MG (0.2 MG/HR) PATCH.TD24 TD SCH (09:02)
[2018-12-11] MEDS: CLOTRIMAZOLE/BETAMETHASONE DIP CREAM 15 GM TOP SCH (09:08)
[2018-12-11] MEDS: ENOXAPARIN SODIUM INJ 40 MG/0.4 ML DISP.SYRIN SUBCUT SCH (09:09)
[2018-12-11] MEDS: SILVER SULFADIAZINE 1% CREAM 50 GM TOP SCH (09:09)
[2018-12-11] MEDS ORDERED: LEVOFLOXACIN 500 MG TABLET PO SCH (10:00)
[2018-12-11 10:19] VITALS: BP 129/62
== END 2018-12-11 11:29 | disposition home health service (06) | DRG 389 ==
LOC: ER 10:29 → EH 19:12 → EEVIPCON 19:12 → 5 12-08 00:43 → OBSVTOIN 12-09 13:29
PROVIDERS: ADMIT Internal Medicine Geriatric Medicine; ATTEND Internal Medicine Geriatric Medicine
PROC: 0D9670Z Drainage of Stomach with Drainage Device, Via Natural or Artificial Opening (ICD-10-PCS; principal; 2018-12-08)
DX: K56.7 Ileus, unspecified (principal); N39.0 Urinary tract infection, site not specified; K59.03 Drug induced constipation; T40.2X5A Adverse effect of other opioids, initial encounter; Z79.891 Long term (current) use of opiate analgesic; G89.29 Other chronic pain; E11.9 Type 2 diabetes mellitus without complications; I25.10 Atherosclerotic heart disease of native coronary artery without angina pectoris; J43.9 Emphysema, unspecified; E03.9 Hypothyroidism, unspecified; F25.9 Schizoaffective disorder, unspecified; I11.0 Hypertensive heart disease with heart failure; I50.9 Heart failure, unspecified; F43.10 Post-traumatic stress disorder, unspecified; M79.7 Fibromyalgia; I73.9 Peripheral vascular disease, unspecified; K21.9 Gastro-esophageal reflux disease without esophagitis; G47.30 Sleep apnea, unspecified; F31.9 Bipolar disorder, unspecified; E66.01 Morbid (severe) obesity due to excess calories; Z79.4 Long term (current) use of insulin; Z79.899 Other long term (current) drug therapy; Z88.6 Allergy status to analgesic agent; Z88.0 Allergy status to penicillin; Z88.8 Allergy status to other drugs, medicaments and biological substances; I25.2 Old myocardial infarction; Z95.5 Presence of coronary angioplasty implant and graft
CPT/HCPCS: 36415; 51701; 74022; 74177; 80053; 80307; 81001; 82962; 83690; 85025; 87086; 93005; 93010; 96361; 96365; 96375; 99285; G0378; J1642; J1650; J1815; J1956; J2405; J3490; J7030; J7060

== ENCOUNTER → 2018-12-20 | Outpatient (CLI) | payer MEDICARE, MEDICAID ==
[2018-12-20 09:20] LABS: ABSOLUTE BASOPHILS # (AUTO) 0.1 10^3/uL (0.0-0.2); ABSOLUTE EOSINOPHILS # (AUTO) 0.2 10^3/uL (0.0-0.6); ABSOLUTE LYMPHOCYTES (AUTO) 2.1 10^3/uL (0.5-4.7); ABSOLUTE MONOCYTES (AUTO) 0.4 10^3/uL (0.1-1.4); ABSOLUTE NEUT (AUTO) 6.5 10^3/uL (1.7-8.2); BASOPHILS % (AUTO) 0.6 % (0-2); EOSINOPHILS % (AUTO) 2.5 % (0-6); HEMATOCRIT 29.8 % (36.0-47.0); HEMOGLOBIN 9.4 g/dL (12.0-15.5); LYMPHOCYTES % (AUTO) 22.9 % (13-45); MEAN CORPUSCULAR HEMOGLOBIN 24.8 pg (27.0-33.4); MEAN CORPUSCULAR HGB CONC 31.4 g/dL (32.0-36.0); MEAN CORPUSCULAR VOLUME 79 fl (80-97); MONOCYTES % (AUTO) 4.7 % (3-13); PLATELET COUNT 260 10^3/uL (150-450); RED BLOOD COUNT 3.78 10^6/uL (3.72-5.28); RED CELL DISTRIBUTION WIDTH 18.4 % (11.5-14.0); SEGMENTED NEUTROPHILS % (AUTO) 69.3 % (42-78); TOTAL CELLS COUNTED % (AUTO) 100 %; WHITE BLOOD COUNT 9.4 10^3/uL (4.0-10.5)
[2018-12-20 09:30] LABS: ABSOLUTE BASOPHILS # (AUTO) 0.1 10^3/uL (0.0-0.2); ABSOLUTE EOSINOPHILS # (AUTO) 0.2 10^3/uL (0.0-0.6); ABSOLUTE LYMPHOCYTES (AUTO) 2.1 10^3/uL (0.5-4.7); ABSOLUTE MONOCYTES (AUTO) 0.4 10^3/uL (0.1-1.4); ABSOLUTE NEUT (AUTO) 6.5 10^3/uL (1.7-8.2); BASOPHILS % (AUTO) 0.6 % (0-2); EOSINOPHILS % (AUTO) 2.5 % (0-6); HEMATOCRIT 29.8 % (36.0-47.0); HEMOGLOBIN 9.4 g/dL (12.0-15.5); LYMPHOCYTES % (AUTO) 22.9 % (13-45); MEAN CORPUSCULAR HEMOGLOBIN 24.8 pg (27.0-33.4); MEAN CORPUSCULAR HGB CONC 31.4 g/dL (32.0-36.0); MEAN CORPUSCULAR VOLUME 79 fl (80-97); MONOCYTES % (AUTO) 4.7 % (3-13); PLATELET COUNT 260 10^3/uL (150-450); RED BLOOD COUNT 3.78 10^6/uL (3.72-5.28); RED CELL DISTRIBUTION WIDTH 18.4 % (11.5-14.0); SEGMENTED NEUTROPHILS % (AUTO) 69.3 % (42-78); TOTAL CELLS COUNTED % (AUTO) 100 %; WHITE BLOOD COUNT 9.4 10^3/uL (4.0-10.5)
[2018-12-20 09:40] LABS: APPEARANCE,URINE CLOUDY; BILIRUBIN,URINE NEGATIVE (NEGATIVE); COLOR,URINE YELLOW; GLUCOSE, URINE NEGATIVE (NEGATIVE); KETONES,URINE NEGATIVE (NEGATIVE); LEUKOCYTE ESTERASE,URINE NEGATIVE (NEGATIVE); NITRITE,URINE NEGATIVE (NEGATIVE); PROTEIN,URINE NEGATIVE (NEGATIVE); UROBILINOGEN,URINE NEGATIVE mg/dL (<2.0)
[2018-12-20 09:44] LABS: ALANINE AMINOTRANSFERASE 16 U/L (9-52); ALBUMIN 4.3 g/dL (3.5-5.0); ALKALINE PHOSPHATASE 155 U/L (38-126); ANION GAP 11 (5-19); ASPARTATE AMINO TRANSFERASE 18 U/L (14-36); BILIRUBIN,DIRECT 0.3 mg/dL (0.0-0.4); BILIRUBIN,TOTAL 0.3 mg/dL (0.2-1.3); BLOOD UREA NITROGEN 22 mg/dL (7-20); CALCIUM 9.6 mg/dL (8.4-10.2); CARBON DIOXIDE 29 mmol/L (22-30); CHLORIDE 99 mmol/L (98-107); CHOLESTEROL 125.26 mg/dL (0-200); GLUCOSE 125 mg/dL (75-110); POTASSIUM 4.2 mmol/L (3.6-5.0); SODIUM 138.7 mmol/L (137-145); TOTAL PROTEIN 7.9 g/dL (6.3-8.2); TRIGLYCERIDES 100 mg/dL (<150)
[2018-12-20 09:55] LABS: DIRECT LDL 63 mg/dL (<100)
[2018-12-20 11:03] LABS: BLOOD UREA NITROGEN 22 mg/dL (7-20); CALCIUM 9.6 mg/dL (8.4-10.2); GLUCOSE 125 mg/dL (75-110)
[2018-12-20 11:04] LABS: ALBUMIN 4.3 g/dL (3.5-5.0); ANION GAP 11 (5-19); CARBON DIOXIDE 29 mmol/L (22-30); CHLORIDE 99 mmol/L (98-107); PHOSPHORUS 4.3 mg/dL (2.5-4.5); POTASSIUM 4.2 mmol/L (3.6-5.0); SODIUM 138.7 mmol/L (137-145)
[2018-12-21 13:37] LABS: CREATININE URINE 70.4 mg/dL (Not Estab.); MICROALBUMIN URINE <3.0 ug/mL (Not Estab.)
== END ==
LOC: OD 08:33
PROVIDERS: ATTEND Internal Medicine Geriatric Medicine
DX: I12.9 Hypertensive chronic kidney disease with stage 1 through stage 4 chronic kidney disease, or unspecified chronic kidney disease (principal); N18.3 Chronic kidney disease, stage 3 (moderate); E11.22 Type 2 diabetes mellitus with diabetic chronic kidney disease; D63.1 Anemia in chronic kidney disease; E87.5 Hyperkalemia; E55.9 Vitamin D deficiency, unspecified; E11.65 Type 2 diabetes mellitus with hyperglycemia; E11.43 Type 2 diabetes mellitus with diabetic autonomic (poly)neuropathy; R79.82 Elevated C-reactive protein (CRP)
CPT/HCPCS: 36415; 80053; 80061; 80069; 81001; 82043; 82306; 82570; 82607; 82746; 83036; 83970; 85025; 85384; 86141

== ENCOUNTER → 2019-01-02 | Outpatient (CLI) | payer MEDICARE, MEDICAID ==
--- NOTE | 2019-01-02 12:49 | RADIOLOGY REPORT (SQ) ---
EXAM DESCRIPTION: CAROTID DOPPLER COMPLETED DATE/TIME: 01/02/2019 11:51 am REASON FOR STUDY: TYPE 2 DM E11.43 TYPE 2 DIABETES W DIABETIC AUTONOMIC (POLY)NEUROPATHY COMPARISON: CT brain 01/17/2017, 12/12/2016 TECHNIQUE: Grayscale ultrasound, Doppler velocity and spectra, and color Doppler images acquired of the extra-cranial carotid and vertebral arteries. Images stored on PACS. LIMITATIONS: Body habitus, high carotid bifurcations by the mandibular angles bilaterally. FINDINGS: RIGHT CAROTID CCA Velocities: Within normal limits , right common carotid artery peak systolic velocity 0.6 m/sec. ICA Velocities Peak systolic 0.98 m/s. End diastolic 0.18 m/s. Proximal ICA/CCA peak systolic ratio 1.1. Spectra normal. No significant plaque. LEFT CAROTID CCA Velocities: Within normal limits, left common carotid artery peak systolic velocity 0.96 m/sec. ICA Velocities Peak systolic 0.61 m/s. End diastolic 0.13 m/s. Proximal ICA/CCA peak systolic ratio 0.74. Spectra normal. No significant plaque. VERTEBRAL ARTERIES: Antegrade flow. Normal waveforms. SUBCLAVIAN ARTERIES: Not evaluated OTHER: No other significant finding. IMPRESSION: NO HEMODYNAMICALLY SIGNIFICANT STENOSIS. COMMENT: Quality ID #[id number]: Velocity criteria are extrapolated from the diameter data as defined by t he Society of Radiologists in Ultrasound Consensus Conference. Radiology 2003: 229; 340-346. TECHNICAL DOCUMENTATION: JOB ID: [id number] [employer]- All Rights Reserved Reading location - IP/workstation name: [email or web address]
--- NOTE | 2019-01-03 08:29 | XCELERA REPORT ---
[address] [address] Lower Extremity Arterial Evaluation Name: SANTOS NAVARRO Age: 58 yrs Gender: Female : 1960 Patient Status: Outpatient Patient Location: Study Date: 01/02/2019 09:47 AM Procedure: A color flow and duplex scan of the lower extremity arteries was performed bilaterally with velocity and waveform anaylsis. Ankle brachial indicies performed. Reason For Study: TYPE 2 DM Ordering Physician: JASSON MARTINI Performed By: Rosaura Vogt Measurements and Calculations Right Left SALES TRADER PSV 213.1 179.6 cm/sec Prox PFA PSV 123.8 106.2 cm/sec Prox SFA PSV 173.8 196.4 cm/sec Mid SFA PSV -132.0 -140.4cm/sec Dist SFA PSV -110.8 -128.7cm/sec Prox Pop A PSV 82.4 cm/sec Mid KATRIN PSV -85.5 cm/sec Mid ANESTHESIOLOGIST PHYSICIAN PSV 49.6 75.4 cm/sec Elias Pedis PSV 74.4 41.6 cm/sec Right Side Arterial Evaluation Study difficult due to body habitus. Beam penetration difficult through thick adiposity. Normal velocity and biphasic waveforms noted in the Common Femoral artery. Popliteal artery not well visualized. Biphasic with normal velocity, moderate spectral broadening, in the Anterior Tibial, which is reversed in flow direction. Low velocity, monophasic signal in the Posterior tibial. Ankle Brachial index 1.1. Left Side Arterial Evaluation Study difficult due to body habitus. Beam penetration difficult through thick adiposity. Normal velocity and biphasic waveforms noted in the Common Femoral artery to Posterior tibial artery. Anterior tibial not seen, Biphasic with low normal velocity in the Dorsalis Pedis. Ankle Brachial index 1.1. Interpretation Summary Moderate hemodynamically significant lesions in the bilateral lower extremities, on duplex imaging, at rest. No focal stenosis noted, Study technically difficult, which could impact accuracy. Bilateral inflow disease with distal sequential effects, suggested. SHARAD's are normal, which is non concordant with the duplex findings. Clinical correlation is recommended. : JASSON MARTINI > Jean Lopez
== END ==
LOC: SP 09:39
PROVIDERS: ATTEND Internal Medicine Geriatric Medicine
DX: E11.43 Type 2 diabetes mellitus with diabetic autonomic (poly)neuropathy (principal)
CPT/HCPCS: 93880; 93925

== ENCOUNTER 2019-01-14 12:06 | Emergency (ER) | payer MEDICARE, MEDICAID ==
[2019-01-14 13:22] VITALS: BP 129/62
--- NOTE | 2019-01-14 13:25 | ER Document Report ---
ED Medical Screen (RME) - General Chief Complaint: Low Blood Sugar Stated Complaint: BLOOD SUGAR ISSUES Time Seen by Provider: 01/14/19 12:58 Primary Care Provider: JASSON MARTINI MD [Primary Care Provider] - Follow up as needed Mode of Arrival: Medic Information source: Patient Notes: Patient presents to the emergency department for low blood sugar hematuria. Marty palumbo was at her primary care providers when she felt dizzy and they checked her sugar, it was 53 and her blood pressure was low. She reports they would not let her leave the clinic and they called an ambulance. EMS noted a Accu-Check of 87 and then 56. Last Accu-Chek was 59 here. Patient is now eating crackers and drinking juice. Patient is very concerned about how she will get home. Patient is morbidly obese with history of diabetes she took her Lantus this morning. I have greeted and performed a rapid initial assessment of this patient. A comprehensive ED assessment and evaluation of the patient, analysis of test results and completion of the medical decision making process will be conducted by additional ED providers. Dictation of this chart was performed using voice recognition software; therefore, there may be some unintended grammatical errors. TRAVEL OUTSIDE OF THE [place] IN LAST 30 DAYS: No - Related Data Allergies/Adverse Reactions: cephalexin monohydrate [From Keflex] Allergy (Unknown, Verified 01/14/19 12:38) codeine [Codeine] Allergy (Unknown, Verified 01/14/19 12:38) dicyclomine HCl [From Bentyl] Allergy (Unknown, Verified 01/14/19 12:38) hydrocodone bitartrate [From Vicodin] Allergy (Unknown, Verified 01/14/19 12:38) meloxicam [From Mobic] Allergy (Unknown, Verified 01/14/19 12:38) meperidine HCl [From Demerol (PF)] Allergy (Unknown, Verified 01/14/19 12:38) morphine [Morphine] Allergy (Unknown, Verified 01/14/19 12:38) naproxen sodium [From Naprelan CR Dosepak] Allergy (Unknown, Verified 01/14/19 12:38) nitrofurantoin [From Macrobid] Allergy (Unknown, Verified 01/14/19 12:38) pantoprazole sodium [From Protonix] Allergy (Unknown, Verified 01/14/19 12:38) Penicillins Allergy (Unknown, Verified 03/16/18 15:29) Sulfa (Sulfonamide Antibiotics) Allergy (Unknown, Verified 03/16/18 15:29) aspirin Allergy (Verified 03/16/18 15:29) lamotrigine [From Lamictal] Allergy (Verified 03/16/18 15:29) rash Past Medical History - Social History Family history: Reviewed & Not Pertinent - Past Medical History Cardiac Medical History: Reports: Hx Congestive Heart Failure, Hx Coronary Artery Disease, Hx Heart Attack - 2 STENTS, Hx Hypercholesterolemia, Hx Hypertension, Hx Peripheral Vascular Disease Denies: Hx Heart Murmur Pulmonary Medical History: Reports: Hx Asthma, Hx Bronchitis, Hx COPD - WEARS 2 LNC 24HRS/DAY, Hx Sleep Apnea Denies: Hx Pneumonia, Hx Respiratory Failure, Hx Tuberculosis Neurological Medical History: Reports: Hx Migraine. Denies: Hx Cerebrovascular Accident, Hx Seizures Endocrine Medical History: Reports: Hx Diabetes Mellitus Type 2, Hx Hyperthyroidism, Hx Hypothyroidism Renal/ Medical History: Reports: Hx End Stage Renal Disease - Stage IV, no dialysis yet, Hx Renal Insufficiency. Denies: Hx Peritoneal Dialysis Malignancy Medical History: GI Medical History: Reports: Hx Gastroesophageal Reflux Disease. Denies: Hx Pancreatitis Musculoskeltal Medical History: Denies Hx Arthritis, Reports Hx Fibromyalgia, Reports Hx Muscle Weakness, Denies Hx Systemic Lupus Erythematosus Psychiatric Medical History: Reports: Hx Bipolar Disorder, Hx Depression, Hx Post Traumatic Stress Disorder, Hx Schizophrenia Traumatic Medical History: Infectious Medical History: Past Surgical History: Reports: Hx Cardiac Catheterization, Hx Section - x2, Hx Coronary Artery Bypass Graft, Hx Coronary Stent - x2, Hx Hysterectomy, Hx Orthopedic Surgery, Hx Tubal Ligation, Other - multiple colonoscopies for lower GI bleed - Immunizations Hx Diphtheria, Pertussis, Tetanus Vaccination: Yes History of Influenza Vaccine for 04/2017 - 08/2017 Season: Yes Influenza Administration Date for 04/2017 - 08/2017 Season: 04/02/17 Physical Exam - Vital signs Vitals: Temp Pulse Resp BP Pulse Ox 97.6 F 97 22 H 129/62 H 100 01/14/19 13:20 01/14/19 13:20 01/14/19 13:20 01/14/19 13:20 01/14/19 13:20 Course - Vital Signs Vital signs: Temp Pulse Resp BP Pulse Ox 97.6 F 97 22 H 129/62 H 100 01/14/19 13:20 01/14/19 13:20 01/14/19 13:20 01/14/19 13:20 01/14/19 13:20 Doctor's Discharge - Discharge Referrals: JASSON MARTINI MD [Primary Care Provider] - Follow up as needed
== END 2019-01-14 17:45 | disposition left against medical advice (07) ==
LOC: ER 12:06
DX: Z53.21 Procedure and treatment not carried out due to patient leaving prior to being seen by health care provider (principal); E11.649 Type 2 diabetes mellitus with hypoglycemia without coma; R31.9 Hematuria, unspecified; R42 Dizziness and giddiness; I95.9 Hypotension, unspecified; I50.9 Heart failure, unspecified; I25.10 Atherosclerotic heart disease of native coronary artery without angina pectoris; I25.2 Old myocardial infarction; I11.0 Hypertensive heart disease with heart failure; J44.9 Chronic obstructive pulmonary disease, unspecified
CPT/HCPCS: 82962; 99281

== ENCOUNTER 2019-03-01 10:26 | Emergency (ER) | payer MEDICARE, MEDICAID ==
[2019-03-01 10:30] VITALS: BP 139/64
--- NOTE | 2019-03-01 10:46 | ER Document Report ---
ED Medical Screen (RME) - General Chief Complaint: Chest Pain Stated Complaint: CHEST PAIN Time Seen by Provider: 03/01/19 10:39 Primary Care Provider: JASSON MARTINI MD [Primary Care Provider] - Follow up as needed Mode of Arrival: Wheelchair Information source: Patient Notes: Patient is a 58-year-old female with multiple comorbidities presenting to the emergency department chief complaint of chest pain shortness of breath began yesterday. Patient reports she came to the emergency room last night but left prior to treatment. She states this morning the symptoms persisted so she went to her primary care provider's office who directed her to come here. She does report history of CHF. She also reported an initial hypoglycemia episode this morning with a blood sugar in the 60s, her blood sugar at the time of arrival here is over 100. Exam: Heart sounds S1-S2 present with no ectopy noted. Lung sounds clear but diminished bilaterally. Patient appears short of breath and is using accessory muscles. I have greeted and performed a rapid initial assessment of this patient. A comprehensive ED assessment and evaluation of the patient, analysis of test results and completion of the medical decision making process will be conducted by additional ED providers. I have specifically instructed the patient or family members with the patient to immediately return to any nursing staff should anything change in the patient's condition or with their chief complaint. This medical record was dictated with voice recognizing software. There may be grammatical, syntax errors that are unintended. TRAVEL OUTSIDE OF THE [place] IN LAST 30 DAYS: No - Related Data Allergies/Adverse Reactions: cephalexin monohydrate [From Keflex] Allergy (Unknown, Verified 03/01/19 10:33) codeine [Codeine] Allergy (Unknown, Verified 03/01/19 10:33) dicyclomine HCl [From Bentyl] Allergy (Unknown, Verified 03/01/19 10:33) hydrocodone bitartrate [From Vicodin] Allergy (Unknown, Verified 03/01/19 10:33) meloxicam [From Mobic] Allergy (Unknown, Verified 03/01/19 10:33) meperidine HCl [From Demerol (PF)] Allergy (Unknown, Verified 03/01/19 10:33) morphine [Morphine] Allergy (Unknown, Verified 03/01/19 10:33) naproxen sodium [From Naprelan CR Dosepak] Allergy (Unknown, Verified 03/01/19 10:33) nitrofurantoin [From Macrobid] Allergy (Unknown, Verified 03/01/19 10:33) pantoprazole sodium [From Protonix] Allergy (Unknown, Verified 03/01/19 10:33) Penicillins Allergy (Unknown, Verified 03/01/19 10:33) Sulfa (Sulfonamide Antibiotics) Allergy (Unknown, Verified 03/01/19 10:33) aspirin Allergy (Verified 03/01/19 10:33) lamotrigine [From Lamictal] Allergy (Verified 03/01/19 10:33) rash Past Medical History - Social History Family history: Reviewed & Not Pertinent - Past Medical History Cardiac Medical History: Reports: Hx Congestive Heart Failure, Hx Coronary Artery Disease, Hx Heart Attack - 2 STENTS, Hx Hypercholesterolemia, Hx Hypertension, Hx Peripheral Vascular Disease Denies: Hx Heart Murmur Pulmonary Medical History: Reports: Hx Asthma, Hx Bronchitis, Hx COPD - WEARS 2 LNC 24HRS/DAY, Hx Sleep Apnea Denies: Hx Pneumonia, Hx Respiratory Failure, Hx Tuberculosis Neurological Medical History: Reports: Hx Migraine. Denies: Hx Cerebrovascular Accident, Hx Seizures Endocrine Medical History: Reports: Hx Diabetes Mellitus Type 2, Hx Hyperthyroidism, Hx Hypothyroidism Renal/ Medical History: Reports: Hx End Stage Renal Disease - Stage IV, no dialysis yet, Hx Renal Insufficiency. Denies: Hx Peritoneal Dialysis Malignancy Medical History: GI Medical History: Reports: Hx Gastroesophageal Reflux Disease. Denies: Hx Pancreatitis Musculoskeltal Medical History: Denies Hx Arthritis, Reports Hx Fibromyalgia, Reports Hx Muscle Weakness, Denies Hx Systemic Lupus Erythematosus Psychiatric Medical History: Reports: Hx Bipolar Disorder, Hx Depression, Hx Post Traumatic Stress Disorder, Hx Schizophrenia Traumatic Medical History: Infectious Medical History: Past Surgical History: Reports: Hx Cardiac Catheterization, Hx Section - x2, Hx Coronary Artery Bypass Graft, Hx Coronary Stent - x2, Hx Hysterectomy, Hx Orthopedic Surgery, Hx Tubal Ligation, Other - multiple colonoscopies for lower GI bleed - Immunizations Hx Diphtheria, Pertussis, Tetanus Vaccination: Yes History of Influenza Vaccine for 04/2017 - 08/2017 Season: Yes Influenza Administration Date for 04/2017 - 08/2017 Season: 04/02/17 Physical Exam - Vital signs Vitals: Temp Pulse Resp BP Pulse Ox 98.9 F 90 24 H 139/64 H 100 03/01/19 10:29 03/01/19 10:29 03/01/19 10:29 03/01/19 10:29 03/01/19 10:29 Course - Vital Signs Vital signs: Temp Pulse Resp BP Pulse Ox 98.9 F 90 24 H 139/64 H 100 03/01/19 10:29 03/01/19 10:29 03/01/19 10:29 03/01/19 10:29 03/01/19 10:29 Doctor's Discharge - Discharge Referrals: JASSON MARTINI MD [Primary Care Provider] - Follow up as needed
--- NOTE | 2019-03-01 11:20 | RADIOLOGY REPORT (SQ) ---
EXAM DESCRIPTION: CHEST SINGLE VIEW COMPLETED DATE/TIME: 03/01/2019 11:11 am REASON FOR STUDY: chest pain/sob COMPARISON: 10/18/2018 NUMBER OF VIEWS: One view. TECHNIQUE: Single frontal radiographic view of the chest acquired. LIMITATIONS: None. FINDINGS: LUNGS AND PLEURA: Focal airspace disease in the right base and left retrocardiac region mo st likely atelectasis. There is apical pleural thickening. No focal consolidation or effusions. MEDIASTINUM AND HILAR STRUCTURES: No masses. Contour normal. HEART AND VASCULAR STRUCTURES: Heart normal in size. Normal vasculature. BONES: No acute findings. HARDWARE: [id number] remains in place. OTHER: No other significant finding. IMPRESSION: Bibasilar airspace disease most likely atelectasis. TECHNICAL DOCUMENTATION: JOB ID: [id number] [employer]- All Rights Reserved Reading location - IP/workstation name: [email or web address]
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
--- NOTE | 2019-03-01 13:51 | EKG REPORT ---
SEVERITY:- ABNORMAL ECG - SINUS RHYTHM FIRST DEGREE AV BLOCK BORDERLINE T ABNORMALITIES, DIFFUSE LEADS : Confirmed by: Kraig Self MD 01-Mar-2019 13:50:43
== END 2019-03-01 13:23 | disposition left against medical advice (07) ==
LOC: ER 10:26
DX: R07.2 Precordial pain (principal); Z88.6 Allergy status to analgesic agent; Z88.0 Allergy status to penicillin
CPT/HCPCS: 71045; 82962; 93005; 93010; 99285

== ENCOUNTER 2019-03-04 12:04 | Emergency (ER) | payer MEDICARE, MEDICAID ==
[2019-03-04 13:16] LABS: ABSOLUTE EOSINOPHILS # (AUTO) 0.2 10^3/uL (0.0-0.6); ABSOLUTE LYMPHOCYTES (AUTO) 1.6 10^3/uL (0.5-4.7); ABSOLUTE MONOCYTES (AUTO) 0.6 10^3/uL (0.1-1.4); BASOPHILS % (AUTO) 0.8 % (0-2); EOSINOPHILS % (AUTO) 3.6 % (0-6); HEMATOCRIT 24.3 % (36.0-47.0); LYMPHOCYTES % (AUTO) 29.2 % (13-45); MEAN CORPUSCULAR HEMOGLOBIN 23.9 pg (27.0-33.4); MEAN CORPUSCULAR HGB CONC 30.6 g/dL (32.0-36.0); MEAN CORPUSCULAR VOLUME 78 fl (80-97); MONOCYTES % (AUTO) 11.2 % (3-13); PLATELET COUNT 268 10^3/uL (150-450); RED CELL DISTRIBUTION WIDTH 20.9 % (11.5-14.0); SEGMENTED NEUTROPHILS % (AUTO) 55.2 % (42-78); TOTAL CELLS COUNTED % (AUTO) 100 %; WHITE BLOOD COUNT 5.4 10^3/uL (4.0-10.5)
[2019-03-04 13:18] LABS: INTERNATIONAL RATION (INR) 1.07; PROTHROMBIN TIME 13.9 SEC (11.4-15.4)
[2019-03-04 13:19] LABS: HEMOGLOBIN 7.4 g/dL (12.0-15.5)
[2019-03-04] MEDS ORDERED: NORMAL SALINE 250 ML IV PRN (13:28)
[2019-03-04 13:30] LABS: ALBUMIN 3.7 g/dL (3.5-5.0); ALKALINE PHOSPHATASE 120 U/L (38-126); ANION GAP 11 (5-19); ASPARTATE AMINO TRANSFERASE 16 U/L (14-36); BILIRUBIN,DIRECT 0.2 mg/dL (0.0-0.4); BILIRUBIN,TOTAL 0.2 mg/dL (0.2-1.3); BLOOD UREA NITROGEN 13 mg/dL (7-20); CARBON DIOXIDE 25 mmol/L (22-30); CHLORIDE 105 mmol/L (98-107); CREATINE KINASE 90 U/L (30-135); GLUCOSE 134 mg/dL (75-110); POTASSIUM 3.9 mmol/L (3.6-5.0); TOTAL PROTEIN 6.8 g/dL (6.3-8.2)
[2019-03-04 13:34] LABS: ALCOHOL < 10 mg/dL (NONE DETECTED)
[2019-03-04 13:41] LABS: CREATINE KINASE MB 0.42 ng/mL (<4.55)
[2019-03-04 13:45] LABS: APPEARANCE,URINE CLEAR; BILIRUBIN,URINE NEGATIVE (NEGATIVE); COLOR,URINE STRAW; GLUCOSE, URINE NEGATIVE (NEGATIVE); KETONES,URINE NEGATIVE (NEGATIVE); LEUKOCYTE ESTERASE,URINE NEGATIVE (NEGATIVE); NITRITE,URINE NEGATIVE (NEGATIVE); PROTEIN,URINE NEGATIVE (NEGATIVE); URINE SPECIFIC GRAVITY 1.006; UROBILINOGEN,URINE NEGATIVE mg/dL (<2.0)
[2019-03-04 13:47] LABS: TROPONIN I < 0.012 ng/mL
[2019-03-04 14:04] LABS: URINE AMPHETAMINES SCREEN NEGATIVE; URINE BARBITURATES SCREEN NEGATIVE; URINE BENZODIAZEPINES SCREEN NEGATIVE; URINE COCAINE SCREEN NEGATIVE; URINE MARIJUANA (THC) SCREEN NEGATIVE; URINE METHADONE SCREEN NEGATIVE; URINE PHENCYCLIDINE SCREEN NEGATIVE
--- NOTE | 2019-03-04 15:01 | RADIOLOGY REPORT (SQ) ---
EXAM DESCRIPTION: CT HEAD WITHOUT COMPLETED DATE/TIME: 03/04/2019 2:52 pm REASON FOR STUDY: altered mental status COMPARISON: 2017 TECHNIQUE: Axial images acquired through the brain without intravenous contrast. Images reviewed wi th bone, brain and subdural windows. Additional sagittal and coronal reconstructions were generated. Images stored on PACS. All CT scanners at this facility use dose modulation, iterative reconstruction, and/or weight based d osing when appropriate to reduce radiation dose to as low as reasonably achievable (ALARA). [facility]: Dose Right [facility]: CareDose [facility]: Dose Right [facility]: Teradose 4D [facility]: Signiant RADIATION DOSE: CT Rad equipment meets quality standard of care and radiation dose reduction techniq ues were employed. CTDIvol: 53.2 mGy. DLP: 991 mGy-cm. mGy. LIMITATIONS: None. FINDINGS: VENTRICLES: Normal size and contour. CEREBRUM: No masses. No hemorrhage. No midline shift. No evidence for acute infarction. Normal gra y/white matter differentiation. No areas of low density in the white matter. CEREBELLUM: No masses. No hemorrhage. No alteration of density. No evidence for acute infarction. EXTRAAXIAL SPACES: No fluid collections. No masses. ORBITS AND GLOBE: No intra- or extraconal masses. Normal contour of globe without masses. CALVARIUM: No fracture. PARANASAL SINUSES: No fluid or mucosal thickening. SOFT TISSUES: No mass or hematoma. OTHER: No other significant finding. IMPRESSION: NORMAL BRAIN CT WITHOUT CONTRAST. EVIDENCE OF ACUTE STROKE: NO. COMMENT: Quality ID # [id number]: Final reports with documentation of one or more dose reduction techniques (e.g., Automated exposure control, adjustment of the mA and/or kV according to patient size, use of iterative reconstruction technique) TECHNICAL DOCUMENTATION: JOB ID: [id number] [employer]- All Rights Reserved Reading location - IP/workstation name: [email or web address]
--- NOTE | 2019-03-04 15:07 | RADIOLOGY REPORT (SQ) ---
EXAM DESCRIPTION: CHEST SINGLE VIEW COMPLETED DATE/TIME: 03/04/2019 2:57 pm REASON FOR STUDY: altered mental status COMPARISON: 03/01/2019 EXAM PARAMETERS: NUMBER OF VIEWS: One view. TECHNIQUE: Single frontal radiographic view of the chest acquired. RADIATION DOSE: NA LIMITATIONS: None. FINDINGS: LUNGS AND PLEURA: Low lung volumes. Cannot exclude pulmonary edema. Cannot exclude airsp tasha disease in the left base. MEDIASTINUM AND HILAR STRUCTURES: No masses. Contour normal. HEART AND VASCULAR STRUCTURES: Cardiomegaly. BONES: No acute findings. HARDWARE: None in the chest. OTHER: No other significant finding. IMPRESSION: Cardiomegaly. Cannot exclude pulmonary edema. Low lung volumes. TECHNICAL DOCUMENTATION: JOB ID: [id number] [employer]- All Rights Reserved Reading location - IP/workstation name: [email or web address]
--- NOTE | 2019-03-04 16:14 | ER Document Report ---
ED General - General Chief Complaint: Unresponsive Stated Complaint: ALTERED MENTAL STATUS Time Seen by Provider: 03/04/19 12:14 Primary Care Provider: JASSON MARTINI MD [Primary Care Provider] - Follow up as needed TRAVEL OUTSIDE OF THE [place] IN LAST 30 DAYS: No - HPI Notes: Patient is a 58-year-old female with multiple medical issues who presents to the emergency department for evaluation. Evidently she has an aide that stays with her at night, and a home health nurse who presents during the day. She states she had a new home health nurse today. The story I received was that she was drowsy, altered per home health nurse. Her eyes kept rolling back. She could not stay awake during the conversation, so 911 was called. The patient was evidently administered IM Narcan. Here the patient refuses to give me much more in the way of information. She states she does not want to be here. She does not want treatment. She would like to be discharged home. - Related Data Allergies/Adverse Reactions: cephalexin monohydrate [From Keflex] Allergy (Unknown, Verified 03/04/19 14:04) codeine [Codeine] Allergy (Unknown, Verified 03/04/19 14:04) dicyclomine HCl [From Bentyl] Allergy (Unknown, Verified 03/04/19 14:04) hydrocodone bitartrate [From Vicodin] Allergy (Unknown, Verified 03/04/19 14:04) meloxicam [From Mobic] Allergy (Unknown, Verified 03/04/19 14:04) meperidine HCl [From Demerol (PF)] Allergy (Unknown, Verified 03/04/19 14:04) morphine [Morphine] Allergy (Unknown, Verified 03/04/19 14:04) naproxen sodium [From Naprelan CR Dosepak] Allergy (Unknown, Verified 03/04/19 14:04) nitrofurantoin [From Macrobid] Allergy (Unknown, Verified 03/04/19 14:04) pantoprazole sodium [From Protonix] Allergy (Unknown, Verified 03/04/19 14:04) Penicillins Allergy (Unknown, Verified 03/04/19 14:04) Sulfa (Sulfonamide Antibiotics) Allergy (Unknown, Verified 03/04/19 14:04) aspirin Allergy (Verified 03/04/19 14:04) lamotrigine [From Lamictal] Allergy (Verified 03/04/19 14:04) rash Past Medical History - General Information source: Patient, Emergency Med Personnel - Social History Smoking Status: Unknown if Ever Smoked Family History: None, Hypertension Patient has suicidal ideation: No Patient has homicidal ideation: No - Past Medical History Cardiac Medical History: Reports: Hx Congestive Heart Failure, Hx Coronary Artery Disease, Hx Heart Attack - 2 STENTS, Hx Hypercholesterolemia, Hx Hypertension, Hx Peripheral Vascular Disease Denies: Hx Heart Murmur Pulmonary Medical History: Reports: Hx Asthma, Hx Bronchitis, Hx COPD - WEARS 2 LNC 24HRS/DAY, Hx Sleep Apnea Denies: Hx Pneumonia, Hx Respiratory Failure, Hx Tuberculosis Neurological Medical History: Reports: Hx Migraine. Denies: Hx Cerebrovascular Accident, Hx Seizures Endocrine Medical History: Reports: Hx Diabetes Mellitus Type 2, Hx Hyperthyroidism, Hx Hypothyroidism Renal/ Medical History: Reports: Hx End Stage Renal Disease - Stage IV, no dialysis yet, Hx Renal Insufficiency. Denies: Hx Peritoneal Dialysis Malignancy Medical History: GI Medical History: Reports: Hx Gastroesophageal Reflux Disease. Denies: Hx Pancreatitis Musculoskeletal Medical History: Denies Hx Arthritis, Reports Hx Fibromyalgia, Reports Hx Muscle Weakness, Denies Hx Systemic Lupus Erythematosus Psychiatric Medical History: Reports: Hx Bipolar Disorder, Hx Depression, Hx Post Traumatic Stress Disorder, Hx Schizophrenia Traumatic Medical History: Infectious Medical History: Past Surgical History: Reports: Hx Cardiac Catheterization, Hx Section - x2, Hx Coronary Artery Bypass Graft, Hx Coronary Stent - x2, Hx Hysterectomy, Hx Orthopedic Surgery, Hx Tubal Ligation, Other - multiple colonoscopies for lower GI bleed - Immunizations Hx Diphtheria, Pertussis, Tetanus Vaccination: Yes Hx Pneumococcal Vaccination: 04/02/13 Review of Systems - Review of Systems Constitutional: See HPI EENT: No symptoms reported Cardiovascular: No symptoms reported Respiratory: No symptoms reported Gastrointestinal: No symptoms reported Genitourinary: No symptoms reported Musculoskeletal: No symptoms reported Skin: No symptoms reported Neurological/Psychological: See HPI Physical Exam - Vital signs Vitals: Temp Resp BP 97.9 F 15 113/61 03/04/19 12:22 03/04/19 12:22 03/04/19 12:22 - Notes Notes: This is a 58-year-old female appears older than her stated age in no acute distress. She is extremely slow to answer questions, but answers them all appropriately. Vital signs reviewed, please refer to chart. Head is normocephalic, atraumatic. Pupils equal round, reactive to light. Neck is supple without meningismus. Heart is regular rate and rhythm. Lungs are clear to auscultation bilaterally. Abdomen is soft, nontender, normoactive bowel sounds throughout. Extremities without cyanosis, clubbing. Posterior calves are nontender. Peripheral pulses are equal. Skin is warm and dry. Patient exhibits a very mild expressive aphasia, slow to answer questions, but answers them appropriately. Otherwise cranial nerves II through XII are grossly intact without focal neurological deficits. Strength is plus 4 out of 5 bilateral upper and lower extremities. Sensation is intact. Reflexes symmetrical. Intact [id number], rapid altering movements, [id number]. Course - Re-evaluation Re-evalutation: 03/04/19 16:11 Patient presents to the emergency department for evaluation. Initially she was stating that she refused to have any sort of an evaluation performed. Because of the report of potential opiate overdose, with pinpoint pupils and response to Narcan, I did explain to the patient that I would involuntarily commit her for 24 hours and draw blood, or she could simply consent. She agreed to consent. Laboratory investigations, EKG, imaging obtained. Patient remained stable throughout the course of her stay. She is oxygenating well. Vital signs are unremarkable. Her blood work did reveal significant anemia. The order was placed for transfusion of 2 units but the patient refuses. She states "I have had 16 units of blood, I do not want anymore." I explained to the patient that I did not have a clear reason for her symptoms today. I told her that I was concerned about the level of her anemia, and with her comorbidities was concerned that she could suffer significant morbidity and mortality from this anemia. I explained to her that she could have loss of lifestyle, , and many other serious circumstances with refusal of care and treatment. She voiced understanding to this. She states she still does not want treatment. She is willing to follow-up with Dr. Martini as an outpatient. Despite being slow to answer questions, patient is awake and alert. She is refusing any sort of treatment at this time. She is refusing admission to the hospital. She has capacity at this point to refuse these interventions. I will contact Dr. Armas, notify him of our findings today and her refusal to stay. She is to follow-up with Dr. Martini this week. - Vital Signs Vital signs: Temp Pulse Resp BP Pulse Ox 97.8 F 14 121/71 03/04/19 15:27 03/04/19 16:32 03/04/19 16:32 - Laboratory Result Diagrams: 03/04/19 13:04 03/04/19 13:04 Laboratory results interpreted by me: 03/04/19 03/04/19 03/04/19 13:04 13:04 13:45 RBC 3.10 L Hgb 7.4 L Hct 24.3 L MCV 78 L MCH 23.9 L MCHC 30.6 L RDW 20.9 H Est GFR (MDRD) Non-Af 50 L Glucose 134 H Crossmatch See Detail - Diagnostic Test Radiology reviewed: Reports reviewed Radiology results interpreted by me: 03/04/19 16:11 Chest X-Ray 03/04/19 12:35 IMPRESSION: Cardiomegaly. Cannot exclude pulmonary edema. Low lung volumes. Head CT 03/04/19 12:35 IMPRESSION: NORMAL BRAIN CT WITHOUT CONTRAST. EVIDENCE OF ACUTE STROKE: NO. - EKG Interpretation by Me Additional EKG results interpreted by me: 03/04/19 16:15 Sinus mechanism with a rate of 72 bpm. First-degree AV block. Nonspecific ST changes, but no acute changes concerning for acute infarction. No significant change in compared to prior study of March 01, 2019 Discharge - Discharge Clinical Impression: Altered mental status Qualifiers: Coma depth: Mary coma 13-15 Anemia Qualifiers: Anemia type: unspecified type Qualified Code(s): D64.9 - Anemia, unspecified Condition: Stable Disposition: AGAINST MEDICAL ADVICE Instructions: Altered Mental Status ([facility]), Anemia ([facility]) Additional Instructions: You have elected to leave AGAINST MEDICAL ADVICE. You have declined blood transfusion. As explained to you in great detail, this could lead to significant problems, including but certainly not limited to heart attack, stroke, and . If you change your mind regarding treatment in any time, please return to the emergency department for reevaluation. Otherwise, I strongly recommend that you follow-up with your primary care provider tomorrow. Referrals: JASSON MARTINI MD [Primary Care Provider] - Follow up as needed
[2019-03-04 20:31] VITALS: BP 135/66
--- NOTE | 2019-03-05 23:14 | EKG REPORT ---
SEVERITY:- ABNORMAL ECG - SINUS RHYTHM FIRST DEGREE AV BLOCK BORDERLINE T ABNORMALITIES, ANTERIOR LEADS : Confirmed by: Maurice Nieto 05-Mar-2019 23:13:44
== END 2019-03-04 20:31 | disposition left against medical advice (07) ==
LOC: ER 12:04
DX: D64.9 Anemia, unspecified (principal); R41.82 Altered mental status, unspecified; I50.9 Heart failure, unspecified; I25.10 Atherosclerotic heart disease of native coronary artery without angina pectoris; I25.2 Old myocardial infarction; I11.0 Hypertensive heart disease with heart failure; J44.9 Chronic obstructive pulmonary disease, unspecified; E11.9 Type 2 diabetes mellitus without complications
CPT/HCPCS: 93005; 36591; 99285; 51701; 86900; 86901; 36415; 82553; 86850; 80307 ×2; 82550; 83735; 85025; 85610; 80053; 81001; 84484; 86920; 71045; 70450; 93010; J1642

== ENCOUNTER 2019-04-29 15:08 | Inpatient (IN) | payer MEDICARE, MEDICAID ==
[2019-04-29 19:54] LABS: ABSOLUTE BASOPHILS # (AUTO) 0.1 10^3/uL (0.0-0.2); ABSOLUTE EOSINOPHILS # (AUTO) 0.1 10^3/uL (0.0-0.6); ABSOLUTE LYMPHOCYTES (AUTO) 1.6 10^3/uL (0.5-4.7); ABSOLUTE MONOCYTES (AUTO) 0.7 10^3/uL (0.1-1.4); BASOPHILS % (AUTO) 0.7 % (0-2); EOSINOPHILS % (AUTO) 1.2 % (0-6); LYMPHOCYTES % (AUTO) 15.3 % (13-45); MEAN CORPUSCULAR HEMOGLOBIN 23.3 pg (27.0-33.4); MEAN CORPUSCULAR HGB CONC 31.1 g/dL (32.0-36.0); MEAN CORPUSCULAR VOLUME 75 fl (80-97); MONOCYTES % (AUTO) 6.8 % (3-13); PLATELET COUNT 335 10^3/uL (150-450); RED BLOOD COUNT 2.26 10^6/uL (3.72-5.28); RED CELL DISTRIBUTION WIDTH 21.8 % (11.5-14.0); TOTAL CELLS COUNTED % (AUTO) 100 %; WHITE BLOOD COUNT 10.5 10^3/uL (4.0-10.5)
[2019-04-29 19:56] LABS: HEMOGLOBIN 5.3 g/dL (12.0-15.5)
[2019-04-29] MEDS ORDERED: NORMAL SALINE 250 ML IV PRN (19:59)
[2019-04-29 20:08] LABS: APPEARANCE,URINE CLEAR; BILIRUBIN,URINE NEGATIVE (NEGATIVE); COLOR,URINE STRAW; GLUCOSE, URINE NEGATIVE (NEGATIVE); KETONES,URINE NEGATIVE (NEGATIVE); LEUKOCYTE ESTERASE,URINE NEGATIVE (NEGATIVE); NITRITE,URINE NEGATIVE (NEGATIVE); PROTEIN,URINE NEGATIVE (NEGATIVE); UROBILINOGEN,URINE NEGATIVE mg/dL (<2.0)
[2019-04-29 20:09] LABS: ALBUMIN 4.1 g/dL (3.5-5.0); ALKALINE PHOSPHATASE 186 U/L (38-126); ANION GAP 12 (5-19); ASPARTATE AMINO TRANSFERASE 18 U/L (14-36); BILIRUBIN,DIRECT 0.1 mg/dL (0.0-0.4); BILIRUBIN,TOTAL 0.3 mg/dL (0.2-1.3); BLOOD UREA NITROGEN 13 mg/dL (7-20); CALCIUM 9.1 mg/dL (8.4-10.2); CARBON DIOXIDE 27 mmol/L (22-30); CHLORIDE 98 mmol/L (98-107); GLUCOSE 149 mg/dL (75-110); POTASSIUM 3.8 mmol/L (3.6-5.0); TOTAL PROTEIN 7.9 g/dL (6.3-8.2)
[2019-04-29 20:11] LABS: URINE SPECIFIC GRAVITY 1.007
[2019-04-29] MEDS ORDERED: NORMAL SALINE 1000 ML 1,000 ML IV ONE (20:30)
--- NOTE | 2019-04-29 20:36 | ER Document Report ---
ED General - General Chief Complaint: Seizure Stated Complaint: SEIZURE Time Seen by Provider: 04/29/19 18:45 Primary Care Provider: JASSON MARTINI MD [Primary Care Provider] - Follow up as needed TRAVEL OUTSIDE OF THE [place] IN LAST 30 DAYS: No - HPI Notes: Patient is brought over from [facility]. Patient states she went there today because she is been feeling weak and having some bright red blood in her stool. While there she apparently had either syncope or some tonic-clonic activity that was possibly a seizure. Patient denies that she had a seizure. It is unclear from the medics history as to what happened. Patient states she has had some diffuse abdominal pain for several days now. It is been aching and mainly right-sided. Nothing makes it worse except movement. It is better with rest. She has not had any diarrhea. No trouble with urination. No vaginal bleeding. No fever sweats or chills. The pain does radiate across her abdomen. No rashes. Pain is been moderate in intensity. She states she is only ever had one seizure in her life and it was many years ago. She denies that she currently takes any type of seizure medication. - Related Data Allergies/Adverse Reactions: cephalexin monohydrate [From Keflex] Allergy (Unknown, Verified 04/29/19 15:45) codeine [Codeine] Allergy (Unknown, Verified 04/29/19 15:45) dicyclomine HCl [From Bentyl] Allergy (Unknown, Verified 04/29/19 15:45) hydrocodone bitartrate [From Vicodin] Allergy (Unknown, Verified 04/29/19 15:45) meloxicam [From Mobic] Allergy (Unknown, Verified 04/29/19 15:45) meperidine HCl [From Demerol (PF)] Allergy (Unknown, Verified 04/29/19 15:45) morphine [Morphine] Allergy (Unknown, Verified 04/29/19 15:45) naproxen sodium [From Naprelan CR Dosepak] Allergy (Unknown, Verified 04/29/19 15:45) nitrofurantoin [From Macrobid] Allergy (Unknown, Verified 04/29/19 15:45) pantoprazole sodium [From Protonix] Allergy (Unknown, Verified 04/29/19 15:45) Penicillins Allergy (Unknown, Verified 04/29/19 15:45) Sulfa (Sulfonamide Antibiotics) Allergy (Unknown, Verified 04/29/19 15:45) aspirin Allergy (Verified 04/29/19 15:45) lamotrigine [From Lamictal] Allergy (Verified 04/29/19 15:45) rash Past Medical History - General Information source: Patient - Social History Smoking Status: Former Smoker Frequency of alcohol use: None Drug Abuse: None Family History: None, Hypertension Patient has suicidal ideation: No Patient has homicidal ideation: No - Past Medical History Cardiac Medical History: Reports: Hx Congestive Heart Failure, Hx Coronary Artery Disease, Hx Heart Attack, Hx Hypercholesterolemia, Hx Hypertension, Hx Peripheral Vascular Disease Denies: Hx Heart Murmur Pulmonary Medical History: Reports: Hx Asthma, Hx COPD, Hx Sleep Apnea Denies: Hx Bronchitis, Hx Pneumonia, Hx Respiratory Failure, Hx Tuberculosis Neurological Medical History: Reports: Hx Migraine. Denies: Hx Cerebrovascular Accident, Hx Seizures, Hx Parkinson's Disease Endocrine Medical History: Reports: Hx Diabetes Mellitus Type 2, Hx Hyperthyroidism, Hx Hypothyroidism Renal/ Medical History: Reports: Hx Renal Insufficiency. Denies: Hx End Stage Renal Disease, Hx Kidney Stones, Hx Peritoneal Dialysis Malignancy Medical History: GI Medical History: Reports: Hx Gastroesophageal Reflux Disease. Denies: Hx Cirrhosis, Hx Pancreatitis, Hx Ulcer Musculoskeletal Medical History: Reports Hx Arthritis, Reports Hx Fibromyalgia, Denies Hx Multiple Sclerosis, Reports Hx Muscle Weakness, Denies Hx Systemic Lupus Erythematosus Psychiatric Medical History: Reports: Hx Depression, Hx Post Traumatic Stress Disorder Denies: Hx Bipolar Disorder, Hx Schizophrenia Traumatic Medical History: Infectious Medical History: Past Surgical History: Reports: Hx Cardiac Catheterization, Hx Section - x2, Hx Coronary Artery Bypass Graft, Hx Coronary Stent - x2, Hx Hysterectomy, Hx Orthopedic Surgery, Hx Tubal Ligation, Other - multiple colonoscopies for lower GI bleed - Immunizations Hx Diphtheria, Pertussis, Tetanus Vaccination: Yes Hx Pneumococcal Vaccination: 04/02/13 Review of Systems - Review of Systems Constitutional: Chills, Malaise, Weakness Cardiovascular: denies: Chest pain, Palpitations Respiratory: Short of breath. denies: Cough Gastrointestinal: Abdomen distended, Abdominal pain -: Yes All other systems reviewed and negative Physical Exam - Vital signs Vitals: Resp BP 17 109/74 04/29/19 16:01 04/29/19 16:01 Interpretation: Normal - General General appearance: Appears well, Alert - HEENT Head: Normocephalic, Atraumatic Eyes: Normal Pupils: PERRL - Respiratory Respiratory status: No respiratory distress Chest status: Nontender Breath sounds: Decreased air movement Chest palpation: Normal - Cardiovascular Rhythm: Regular Heart sounds: Normal auscultation Murmur: No - Abdominal Inspection: Normal Distension: Distended Bowel sounds: Normal Tenderness: Tender - pt has mod upper abd tenderness to palp bilat upper quads. some voluntary guarding. Organomegaly: No organomegaly - Rectal Tenderness: No Stool: Heme positive Hemorrhoids: None - Back Back: Normal, Nontender - Extremities General upper extremity: Normal inspection, Nontender, Normal color, Normal ROM, Normal temperature General lower extremity: Normal inspection, Nontender, Normal color, Normal ROM, Normal temperature, Normal weight bearing. No: Erica's sign - Neurological Neuro grossly intact: Yes Cognition: Normal Orientation: AAOx4 [place]une Coma Scale Eye Opening: Spontaneous Mary Coma Scale Verbal: Oriented [place]une Coma Scale Motor: Obeys Commands Mary Coma Scale Total: 15 Speech: Normal Motor strength normal: LUE, RUE, LLE, RLE Sensory: Normal - Psychological Associated symptoms: Normal affect, Normal mood - Skin Skin Temperature: Warm Skin Moisture: Dry Skin Color: Normal Course - Re-evaluation Re-evalutation: 04/29/19 22:06 pt has gi bleed with anemia. will be transfused. Dr. Ferguson from surgery will scope tomorrow. partial SBO will be monitored. no sz activity in ED. - Vital Signs Vital signs: Temp Pulse Resp BP Pulse Ox 97.8 F 14 112/58 L 04/29/19 19:00 04/29/19 20:01 04/29/19 20:00 - Laboratory Result Diagrams: 04/29/19 19:37 04/29/19 19:37 Laboratory results interpreted by me: 04/29/19 04/29/19 04/29/19 19:37 19:37 20:18 RBC 2.26 L Hgb 5.3 L Hct 17.0 L MCV 75 L MCH 23.3 L MCHC 31.1 L RDW 21.8 H Creatinine 1.45 H Est GFR ( Amer) 45 L Est GFR (MDRD) Non-Af 37 L Glucose 149 H Alkaline Phosphatase 186 H Crossmatch See Detail - Diagnostic Test Radiology reviewed: Image reviewed, Reports reviewed - EKG Interpretation by Me EKG shows normal: Sinus rhythm Rate: Normal - 96 Rhythm: NSR [place]/QRS: No: Right axis deviation, Left axis deviation Discharge - Discharge Clinical Impression: Lower GI bleed Anemia Qualifiers: Anemia type: unspecified type Qualified Code(s): D64.9 - Anemia, unspecified Condition: Stable Disposition: ADMITTED INPATIENT Admitting Provider: [facility] Unit Admitted: IMCU Referrals: JASSON MARTINI MD [Primary Care Provider] - Follow up as needed
--- NOTE | 2019-04-29 21:41 | EKG REPORT ---
SEVERITY:- BORDERLINE ECG - SINUS RHYTHM BORDERLINE T ABNORMALITIES, DIFFUSE LEADS : Confirmed by: Kraig Self MD 29-Apr-2019 21:41:42
--- NOTE | 2019-04-29 21:43 | RADIOLOGY REPORT (SQ) ---
EXAM DESCRIPTION: CT HEAD WITHOUT IV CONTRAST COMPLETED DATE/TME: 04/29/2019 18:53 CLINICAL HISTORY: 58 years, Female, ams/sz This exam was performed according to our departmental dose-optimization program which includes automated exposure control, adjustment of the mA and/or kVp according to patient size and/or use of iterative reconstruction technique where applicable. FINDINGS: No acute intracranial hemorrhage, mass effect or midline shift. No extra-axial fluid collections. Ventricles and subarachnoid spaces are preserved. Sue-white matter differentiation is preserved. Visualized paranasal sinuses and the mastoid air cells are clear. The skull is intact. IMPRESSION: No acute intracranial hemorrhage.
--- NOTE | 2019-04-29 21:53 | RADIOLOGY REPORT (SQ) ---
CT abdomen pelvis without contrast HISTORY: Abdominal pain. This exam was performed according to our departmental dose-optimization program which includes automated exposure control, adjustment of the mA and/or kVp according to patient size and/or use of iterative reconstruction technique where applicable. FINDINGS: Visualized lung bases demonstrate bibasilar atelectatic changes. Liver, spleen, pancreas, gallbladder, right adrenal gland is within normal limits. Left adrenal gland demonstrates a 2.2 cm hypodense nodule. No hydronephrosis. There is no renal, ureteral or bladder calculus. Mildly dilated loops of small bowel are noted diffusely with transition to normal diameter loops in the mid pelvis. Mild amount of stool in the colon. No free fluid or free air. No abdominal or pelvic lymphadenopathy. Abdominal aorta is within normal limits. IMPRESSION: Findings consistent with partial distal small bowel obstruction.
[2019-04-29] MEDS ORDERED: PEG 3350/NA SULF,BICARB,CL/KCL 4000 ML PO ONE (21:55)
--- NOTE | 2019-04-29 22:02 | PDOC CONSULTATION ---
Consultation Consult Date: 04/29/19 Provider Consulted: SIMON LAZARO Consult reason:: Gastrointestinal bleeding History of Present Illness Admission Date/PCP: JASSON MARTINI History of Present Illness: SANTOS NAVARRO is a 58 year old female Presents the emergency department via ground rescue after the patient presented to outpatient facility for evaluation of weakness. Patient had a episode of near syncope, however the details are unclear. Patient is a poor historian has history of schizophrenia. She was evaluated emergency department found to have a hemoglobin of 5.3 was admitted to the hospitalist service for further evaluation. Patient has a long history of gastrointestinal bleeding, last treated December 2017 with upper and lower endoscopy, subsequent banding of internal hemorrhoids by Dr. Antony Rutherford. There is no record or further GI bleeding until this most recent episode. Patient has had multiple previous colonoscopies and upper scopes with indication of AVM, requiring ablative therapy. Patient states she is been scoped as well by Dr. Galarza, but we do not have those records. There is no family member to verify patient's oral history. Remains hemodynamically stable in the emergency department. Past Medical History Cardiac Medical History: Reports: Congestive Heart Failure, Coronary Artery Disease, Myocardial Infarction, Hyperlipidema, Hypertension, Peripheral Vascular Disease Denies: Heart Murmur Pulmonary Medical History: Reports: Asthma, Chronic Obstructive Pulmonary Disease (COPD), Sleep Apnea Denies: Bronchitis, Pneumonia, Respiratory Failure, Tuberculosis Neurological Medical History: Reports: Migraine Denies: Seizures Endocrine Medical History: Reports: Diabetes Mellitus Type 2, Hyperthyroidism, Hypothyroidism Renal/ Medical History: Denies: End Stage Renal Disease Malignancy Medical History: GI Medical History: Reports: Gastroesophageal Reflux Disease Denies: Cirrhosis Musculoskeltal Medical History: Reports: Arthritis, Fibromyalgia Psychiatric Medical History: Reports: Depression, Post Traumatic Stress Disorder Denies: Bipolar Disorder Hematology: Reports: Anemia, Bleeding Tendencies Denies: Hemophilia, Sickle Cell Disease Infectious Medical History: Past Surgical History Past Surgical History: Reports: Cardiac Catheterization, Section - x2, Coronary Artery Bypass Graft, Coronary Stent - x2, Hysterectomy, Orthopedic Surgery, Tubal Ligation, Other - multiple colonoscopies for lower GI bleed Denies: Amputation Social History Smoking Status: Former Smoker Frequency of Alcohol Use: None Hx Recreational Drug Use: No Drugs: None Hx Prescription Drug Abuse: No Family History Family History: None, Hypertension Parental Family History Reviewed: No Children Family History Reviewed: No Sibling(s) Family History Reviewed.: No Medication/Allergy Home Medications: Albuterol Sulfate [Proair HFA Inhalation Aerosol 8.5 gm MDI] 2 puff IH Q4HP PRN 12/07/18 Amitriptyline HCl [Elavil 150 mg Tablet] 150 mg PO QHS 12/07/18 Ammonium Lactate [Amlactin] 1 applic TOP TID 12/07/18 Aripiprazole [Abilify 30 mg Tablet] 15 mg PO BID 12/07/18 Atorvastatin Calcium [Lipitor 40 mg Tablet] 40 mg PO QHS 12/07/18 Benztropine Mesylate [Cogentin 1 mg Tablet] 1 mg PO BID 12/07/18 Budesonide/Formoterol Fumarate [Symbicort HFA 160-4.5 mcg Inhaler 6 gm] 2 puff IH Q12 12/07/18 Bupropion HCl [Wellbutrin Sr 150 mg Tablet] 150 mg PO QPM 12/07/18 Clotrimazole/Betamethasone Dip [Lotrisone Cream] 1 applic TOP BID 12/07/18 Doxepin HCl [Sinequan 10 mg Capsule] 10 mg PO QHS 12/07/18 Duloxetine HCl [Cymbalta] 60 mg PO BID 12/07/18 Furosemide [Lasix 40 mg Tablet] 40 mg PO BID 12/07/18 Gabapentin [Neurontin 300 mg Capsule] 300 mg PO BID 12/07/18 Hydrocortisone [Hydrocortisone 2.5% Cream 28 gm (Clinic Use)] 1 applic TOP BID 12/07/18 Hydroxyzine HCl [Atarax 25 mg Tablet] 25 mg PO Q8HP PRN 12/07/18 Insulin Glargine,Hum.rec.anlog [Lantus Insulin 100 Unit/1 ml 10 ml] 55 units SQ QPM 12/07/18 Insulin Glargine,Hum.rec.anlog [Lantus Insulin 100 Unit/1 ml 10 ml] 65 units SQ QPM 12/07/18 Insulin Lispro [Humalog Kwikpen U-100] 0 units SQ .PERSLIDINGSCALE 12/07/18 Irbesartan [Avapro] 150 mg PO QAM 12/07/18 Levothyroxine Sodium 50 mcg PO Q6AM 12/07/18 Liraglutide [Victoza 2-Armando] 1.8 mg SQ DAILY 12/07/18 Methocarbamol [Robaxin 500 mg Tablet] 500 mg PO TIDP PRN 12/07/18 Nitroglycerin [Nitro-Dur 5 mg (0.2 mg/Hr) Transdermal Patch] 1 patch TD DAILY 12/07/18 Omeprazole 40 mg PO Q12 12/07/18 Oxycodone HCl/Acetaminophen [Percocet 10-325 mg Tablet] 1 tab PO Q8HP PRN 12/07/18 Saxagliptin HCl [Onglyza] 2.5 mg PO QAM 12/07/18 Silver Sulfadiazine [Ssd] 1 applic TOP BID 12/07/18 Topiramate [Topamax] 25 mg PO BID 12/07/18 Naloxegol Oxalate [Movantik 25 mg Tablet] 25 mg PO QAM #30 12/11/18 Polyethylene Glycol 3350 [Miralax Powder 17 gm/Packet] 1 packet PO BID #60 pkg 12/11/18 Allergies/Adverse Reactions: cephalexin monohydrate [From Keflex] Allergy (Unknown, Verified 04/29/19 15:45) codeine [Codeine] Allergy (Unknown, Verified 04/29/19 15:45) dicyclomine HCl [From Bentyl] Allergy (Unknown, Verified 04/29/19 15:45) hydrocodone bitartrate [From Vicodin] Allergy (Unknown, Verified 04/29/19 15:45) meloxicam [From Mobic] Allergy (Unknown, Verified 04/29/19 15:45) meperidine HCl [From Demerol (PF)] Allergy (Unknown, Verified 04/29/19 15:45) morphine [Morphine] Allergy (Unknown, Verified 04/29/19 15:45) naproxen sodium [From Naprelan CR Dosepak] Allergy (Unknown, Verified 04/29/19 15:45) nitrofurantoin [From Macrobid] Allergy (Unknown, Verified 04/29/19 15:45) pantoprazole sodium [From Protonix] Allergy (Unknown, Verified 04/29/19 15:45) Penicillins Allergy (Unknown, Verified 04/29/19 15:45) Sulfa (Sulfonamide Antibiotics) Allergy (Unknown, Verified 04/29/19 15:45) aspirin Allergy (Verified 04/29/19 15:45) lamotrigine [From Lamictal] Allergy (Verified 04/29/19 15:45) rash Review of Systems ROS unobtainable: Due to mental status - Patient is demented, has a history of schizophrenia and is non-cooperative tonight Physical Exam Vital Signs: Temp Pulse Resp BP Pulse Ox 97.8 F 14 112/58 L 04/29/19 19:00 04/29/19 20:01 04/29/19 20:00 Intake & Output 04/28/19 04/29/19 04/30/19 06:59 06:59 06:59 Weight 141.8 kg General appearance: PRESENT: mild distress Head exam: PRESENT: normocephalic Mouth exam: PRESENT: dry mucosa Neck exam: PRESENT: full ROM Respiratory exam: PRESENT: prolonged expiratory phas Cardiovascular exam: PRESENT: RRR Pulses: PRESENT: normal carotid pulses, normal radial pulses GI/Abdominal exam: PRESENT: other - Morbidly obese eye: Abdominal distention but no scars, cannot rule out hernia Rectal exam: PRESENT: deferred Neurological exam: PRESENT: oriented to person Psychiatric exam: PRESENT: anxious Results Laboratory Results: 04/29/19 19:37 04/29/19 19:37 04/29/19 04/29/19 04/29/19 19:37 19:37 19:55 WBC 10.5 RBC 2.26 L Hgb 5.3 L Hct 17.0 L MCV 75 L MCH 23.3 L MCHC 31.1 L RDW 21.8 H Plt Count 335 Seg Neutrophils % 76.0 Sodium 137.3 Potassium 3.8 Chloride 98 Carbon Dioxide 27 Anion Gap 12 BUN 13 Creatinine 1.45 H Est GFR ( Amer) 45 L Glucose 149 H Calcium 9.1 Total Bilirubin 0.3 AST 18 Alkaline Phosphatase 186 H Total Protein 7.9 Albumin 4.1 Urine Color STRAW Urine Appearance CLEAR Urine pH 6.0 Ur Specific [place] 1.007 Urine Protein NEGATIVE Urine Glucose (UA) NEGATIVE Urine Ketones NEGATIVE Urine Blood NEGATIVE Urine Nitrite NEGATIVE Ur Leukocyte Esterase NEGATIVE Urine WBC (Auto) 1 Urine RBC (Auto) 1 Blood Type Antibody Screen 04/29/19 20:18 WBC RBC Hgb Hct MCV MCH MCHC RDW Plt Count Seg Neutrophils % Sodium Potassium Chloride Carbon Dioxide Anion Gap BUN Creatinine Est GFR ( Amer) Glucose Calcium Total Bilirubin AST Alkaline Phosphatase Total Protein Albumin Urine Color Urine Appearance Urine pH Ur Specific [place] Urine Protein Urine Glucose (UA) Urine Ketones Urine Blood Urine Nitrite Ur Leukocyte Esterase Urine WBC (Auto) Urine RBC (Auto) Blood Type O POSITIVE Antibody Screen NEGATIVE 04/29/19 19:37 Troponin I < 0.012 Impressions: Head CT 04/29/19 18:53 IMPRESSION: No acute intracranial hemorrhage. Abdomen/Pelvis CT 04/29/19 18:55 IMPRESSION: Findings consistent with partial distal small bowel obstruction. Assessment & Plan - Diagnosis (1) GI bleed Is this a current diagnosis for this admission?: Yes Plan: Impression: Acute presentation of GI bleed, heme stable, hemoglobin down to 5.3; long history of GI bleeds previously attributed to AVM requiring ablation, and internal hemorrhoids requiring internal hemorrhoidal banding in 2018. Recommendations: 1. Check coagulation parameters; agree with blood transfusions, admission to the hospital service 2. We will keep patient n.p.o., prepped bowel and anticipate upper and lower endoscopy tomorrow by acute care surgeon (2) Anemia Is this a current diagnosis for this admission?: Yes (3) Chronic kidney disease Qualifiers: Is this a current diagnosis for this admission?: Yes (4) Chronic schizoaffective disorder Is this a current diagnosis for this admission?: Yes (5) Coronary artery disease Qualifiers: Is this a current diagnosis for this admission?: Yes - Time Time Spent: 50 to 70 Minutes Medications reviewed and adjusted accordingly: Yes Anticipated discharge: Home - Inpatient Certification Based on my medical assessment, after consideration of the patient's comorbidities, presenting symptoms, or acuity I expect that the services needed warrant INPATIENT care.: Yes I certify that my determination is in accordance with my understanding of Medicare's requirements for reasonable and necessary INPATIENT services [42 CFR 412.3e].: Yes Medical Necessity: Need For IV Fluids, Need for Pain Control, Need for IV Antibiotics, Need for Surgery
[2019-04-29 22:12] LABS: INTERNATIONAL RATION (INR) 1.07; PROTHROMBIN TIME 13.9 SEC (11.4-15.4)
[2019-04-30] MEDS ORDERED: GLUCAGON,HUMAN RECOMB 1 MG INJ IM PRN (08:28)
[2019-04-30] MEDS ORDERED: DEXTROSE 40% GEL 15 GM TUBE PO PRN ×2 (08:28)
[2019-04-30] MEDS ORDERED: DEXTROSE 50%-WATER 25 GM/50 ML DISP.SYRIN IV PRN ×2 (08:28)
--- NOTE | 2019-04-30 08:55 | PDOC PROGRESS REPORT ---
Subjective Progress Note for:: 04/30/19 Subjective:: Patient has had no further episodes of bleeding. She refuses to take a bowel prep and she refuses any endoscopic procedures. Reason For Visit: LOWER GI BLEED,ANEMIA Physical Exam Vital Signs: Temp Pulse Resp BP Pulse Ox 98.0 F 98 16 127/65 H 100 04/30/19 08:07 04/30/19 08:07 04/30/19 08:07 04/30/19 08:07 04/30/19 08:07 Intake & Output 04/29/19 04/30/19 05/01/19 06:59 06:59 06:59 Intake Total 300 Balance 300 Weight 137.9 kg General appearance: PRESENT: no acute distress GI/Abdominal exam: PRESENT: other - Soft and nontender Results Laboratory Results: 04/29/19 19:37 04/29/19 19:37 04/29/19 04/29/19 04/29/19 19:37 19:37 19:55 WBC 10.5 RBC 2.26 L Hgb 5.3 L Hct 17.0 L MCV 75 L MCH 23.3 L MCHC 31.1 L RDW 21.8 H Plt Count 335 Seg Neutrophils % 76.0 Sodium 137.3 Potassium 3.8 Chloride 98 Carbon Dioxide 27 Anion Gap 12 BUN 13 Creatinine 1.45 H Est GFR ( Amer) 45 L Glucose 149 H Calcium 9.1 Total Bilirubin 0.3 AST 18 Alkaline Phosphatase 186 H Total Protein 7.9 Albumin 4.1 Urine Color STRAW Urine Appearance CLEAR Urine pH 6.0 Ur Specific [place] 1.007 Urine Protein NEGATIVE Urine Glucose (UA) NEGATIVE Urine Ketones NEGATIVE Urine Blood NEGATIVE Urine Nitrite NEGATIVE Ur Leukocyte Esterase NEGATIVE Urine WBC (Auto) 1 Urine RBC (Auto) 1 Blood Type Antibody Screen 04/29/19 20:18 WBC RBC Hgb Hct MCV MCH MCHC RDW Plt Count Seg Neutrophils % Sodium Potassium Chloride Carbon Dioxide Anion Gap BUN Creatinine Est GFR ( Amer) Glucose Calcium Total Bilirubin AST Alkaline Phosphatase Total Protein Albumin Urine Color Urine Appearance Urine pH Ur Specific [place] Urine Protein Urine Glucose (UA) Urine Ketones Urine Blood Urine Nitrite Ur Leukocyte Esterase Urine WBC (Auto) Urine RBC (Auto) Blood Type O POSITIVE Antibody Screen NEGATIVE 04/29/19 19:37 Troponin I < 0.012 Impressions: Head CT 04/29/19 18:53 IMPRESSION: No acute intracranial hemorrhage. Abdomen/Pelvis CT 04/29/19 18:55 IMPRESSION: Findings consistent with partial distal small bowel obstruction. Assessment & Plan - Diagnosis (1) GI bleed Is this a current diagnosis for this admission?: Yes Plan: Of uncertain etiology. Patient would highly benefit from upper and lower endoscopy however patient adamantly refuses these procedures. I have explained to the patient very clearly that she could from bleeding if we do not locate the source but she absolutely refuses any further diagnostic procedures. With the patient's refusal, I do not have anything to offer the patient. She states that she does feel better after the blood transfusions. Surgical service signing off. If patient changes her mind please reconsult. - Time Time Spent with patient: 15-24 minutes
[2019-04-30] MEDS ORDERED: FAMOTIDINE 20 MG TABLET PO SCH (10:00)
[2019-04-30] MEDS: INSULIN LISPRO 100 UNIT/ML 3 ML VIAL SUBCUT SCH ×2 (12:43→16:05)
[2019-04-30 13:07] LABS: ABSOLUTE BASOPHILS # (AUTO) 0.1 10^3/uL (0.0-0.2); ABSOLUTE EOSINOPHILS # (AUTO) 0.1 10^3/uL (0.0-0.6); ABSOLUTE LYMPHOCYTES (AUTO) 1.6 10^3/uL (0.5-4.7); ABSOLUTE MONOCYTES (AUTO) 0.7 10^3/uL (0.1-1.4); ABSOLUTE NEUT (AUTO) 8.4 10^3/uL (1.7-8.2); BASOPHILS % (AUTO) 0.9 % (0-2); HEMATOCRIT 20.4 % (36.0-47.0); MEAN CORPUSCULAR HEMOGLOBIN 25.4 pg (27.0-33.4); MEAN CORPUSCULAR HGB CONC 32.8 g/dL (32.0-36.0); MEAN CORPUSCULAR VOLUME 77 fl (80-97); MONOCYTES % (AUTO) 6.2 % (3-13); PLATELET COUNT 285 10^3/uL (150-450); RED BLOOD COUNT 2.64 10^6/uL (3.72-5.28); RED CELL DISTRIBUTION WIDTH 20.7 % (11.5-14.0); SEGMENTED NEUTROPHILS % (AUTO) 76.9 % (42-78); TOTAL CELLS COUNTED % (AUTO) 100 %; WHITE BLOOD COUNT 10.9 10^3/uL (4.0-10.5)
[2019-04-30 13:10] LABS: HEMOGLOBIN 6.7 g/dL (12.0-15.5)
[2019-04-30 18:46] VITALS: BP 131/79
--- NOTE | 2019-04-30 18:48 | RADIOLOGY REPORT (SQ) ---
EXAM DESCRIPTION: NM GI BLEED SCAN COMPLETED DATE/TIME: 04/30/2019 6:10 pm REASON FOR STUDY: hemoglobin is low even with transfusions COMPARISON: None. RADIONUCLIDE AND DOSE: 25 millicuries Technetium-labeled red blood cells. The route of agent administration: Intravenous. TECHNIQUE: Serial arterial-phase images acquired for 80 seconds immediately following injection of r adionuclide. Additional 60 images acquired at 60 seconds per image. LIMITATIONS: None. FINDINGS: There is focal activity on the left suggesting active bleeding in the left mid abdomen. IMPRESSION: There is accumulation of focal activity in the left suggesting active bleeding. TECHNICAL DOCUMENTATION: JOB ID: [id number] [employer]- All Rights Reserved Reading location - IP/workstation name: [email or web address]
[2019-04-30] MEDS ORDERED: MECLIZINE HCL 25 MG TABLET PO PRN (19:52)
[2019-04-30] MEDS ORDERED: (PENDING PHARMACY ID) (Oxycodone Hcl/Acetaminophen [Percocet 10-325 Mg Tablet] 1 TAB) PO PRN (19:52)
[2019-04-30] MEDS ORDERED: ALBUTEROL SULFATE HFA (90 MCG/PUFF) 200 PUFF/8.5 GM MDI IH PRN (19:52)
[2019-04-30] MEDS ORDERED: ATORVASTATIN CALCIUM 40 MG TABLET PO SCH (22:00)
[2019-04-30] MEDS ORDERED: AMITRIPTYLINE HCL 150 MG PO SCH (22:00)
[2019-04-30] MEDS ORDERED: DOXEPIN HCL 10 MG CAPSULE PO SCH (22:00)
[2019-04-30] MEDS ORDERED: TOPIRAMATE 300 MG PO SCH (22:00)
[2019-04-30] MEDS ORDERED: TOPIRAMATE 100 MG TABLET PO SCH (22:00)
[2019-04-30] MEDS ORDERED: BENZTROPINE MESYLATE 1 MG TABLET PO SCH (22:00)
[2019-04-30] MEDS ORDERED: DULOXETINE HCL 30 MG CAPSULE.DR PO SCH (22:00)
[2019-04-30] MEDS ORDERED: GABAPENTIN 300 MG CAPSULE PO SCH (22:00)
[2019-04-30] MEDS ORDERED: AMITRIPTYLINE HCL 75 MG TABLET PO SCH (22:00)
[2019-05-01] MEDS ORDERED: LEVOTHYROXINE SODIUM 0.05 MG TABLET PO SCH (06:00)
[2019-05-01] MEDS ORDERED: INSULIN GLARGINE,HUM.REC.ANLOG 1,000 UNIT/10 ML VIAL SUBCUT SCH ×2 (08:00→18:00)
[2019-05-01] MEDS ORDERED: (PENDING PHARMACY ID) (Irbesartan [Avapro] 150 MG) PO SCH (08:00)
[2019-05-01] MEDS ORDERED: SAXAGLIPTIN HCL 2.5 MG PO SCH (08:00)
[2019-05-01] MEDS ORDERED: FLUTICASONE/VILANTEROL 200-25 MCG/DOSE IH SCH (10:00)
[2019-05-01] MEDS ORDERED: TRIAMCINOLONE ACETONIDE 0.1% OINT 15 GM TP SCH (10:00)
[2019-05-01] MEDS ORDERED: FUROSEMIDE 40 MG TABLET PO SCH (10:00)
[2019-05-01] MEDS ORDERED: NITROGLYCERIN 5 MG (0.2 MG/HR) PATCH.TD24 TD SCH (10:00)
[2019-05-01] MEDS ORDERED: TRIAMCINOLONE ACETONIDE TP SCH (10:00)
[2019-05-01] MEDS ORDERED: (PENDING PHARMACY ID) (Bupropion Hcl [Wellbutrin Sr 150 Mg Tablet] 150 MG) PO SCH (18:00)
--- NOTE | 2019-05-02 01:02 | Left Against Medical Advice ---
Against Medical Advice Admission Date/Time: 04/29/19 22:23 Primary Care Provider: JASSON MARTINI Date of Patient Emigration: 04/30/19 - Diagnosis: (1) Anemia associated with acute blood loss Is this a current diagnosis for this admission?: Yes (2) Lower GI bleed Is this a current diagnosis for this admission?: Yes (3) Insulin dependent diabetes mellitus Is this a current diagnosis for this admission?: Yes (4) HTN (hypertension) Is this a current diagnosis for this admission?: Yes - Summary: Summary: Please see Admission and Progress Notes as well. SANTOS NAVARRO is a 58 F, who LEFT AGAINST MEDICAL ADVICE. The Patient was admitted on 04/29/19 22:23 for severe anemia as consequence of lower GI bleed. She was transfused 3 units of PRBC. Her bleeding scan suggested left sided colonic bleeding site. Patient refused surgical consultation recommendation for colonoscopy and possible intervention. She signed out against medical advised on her pretest for second opinion.
--- NOTE | 2019-05-02 01:39 | PDOC H&P ---
History of Present Illness Admission Date/PCP: 04/29/19 22:23 JASSON MARTINI History of Present Illness: SANTOS NAVARRO is a 58 year old female known to my practice but not compliant with care plan and recommendations. She presented to the ED via EMS from [facility] where she went for evaluation of her persistent weakness and blood in her stool. There was unclear event about syncopal or seizure activity that led to EMS activation and transfer to the ED. She was unclear about her recent health history except reported diffuse abdominal pain without other associated symptoms such as nausea, vomiting, or diarrhea. She denied NSAID usage, tarry stool but admitted to intermittent episodes of large amount of bright red blood in her stool. She admitted to episodes of dizziness and light headedness with position changes, particularly getting up. She denied any hematuria, dysuria, or flank pain. She denied vaginal bleeding. Her initial evaluation was significant for severe anemia with hemoglobin at 5.3 g/dl. She was advised hospitalization for further evaluation and management. She was seen by the surgicalist with recommendation of colonoscopy. Her morbidities are listed below. Past Medical History Cardiac Medical History: Reports: Congestive Heart Failure, Coronary Artery Disease, Myocardial Infarction, Hyperlipidema, Hypertension, Peripheral Vascular Disease Denies: Heart Murmur Pulmonary Medical History: Reports: Asthma, Chronic Obstructive Pulmonary Disease (COPD), Sleep Apnea Denies: Bronchitis, Pneumonia, Respiratory Failure, Tuberculosis Neurological Medical History: Reports: Migraine Denies: Seizures Endocrine Medical History: Reports: Diabetes Mellitus Type 2, Hyperthyroidism, Hypothyroidism Renal/ Medical History: Denies: End Stage Renal Disease Malignancy Medical History: GI Medical History: Reports: Gastroesophageal Reflux Disease Denies: Cirrhosis Musculoskeltal Medical History: Reports: Arthritis, Fibromyalgia Psychiatric Medical History: Reports: Depression, Post Traumatic Stress Disorder Denies: Bipolar Disorder Hematology: Reports: Anemia, Bleeding Tendencies Denies: Hemophilia, Sickle Cell Disease Infectious Medical History: Past Surgical History Past Surgical History: Reports: Cardiac Catheterization, Section - x2, Coronary Artery Bypass Graft, Coronary Stent - x2, Hysterectomy, Orthopedic Surgery, Tubal Ligation, Other - multiple colonoscopies for lower GI bleed Denies: Amputation Social History Smoking Status: Former Smoker Electronic Cigarette use?: No Frequency of Alcohol Use: None Hx Recreational Drug Use: No Drugs: None Hx Prescription Drug Abuse: No - Advance Directive Resuscitation Status: Full Code Family History Family History: None, Hypertension Parental Family History Reviewed: Yes Children Family History Reviewed: Yes Sibling(s) Family History Reviewed.: Yes Medication/Allergy Home Medications: Albuterol Sulfate [Proair HFA Inhalation Aerosol 8.5 gm MDI] 2 puff IH Q4HP PRN 12/07/18 Amitriptyline HCl [Elavil 150 mg Tablet] 150 mg PO QHS 12/07/18 Atorvastatin Calcium [Lipitor 40 mg Tablet] 40 mg PO QHS 12/07/18 Benztropine Mesylate [Cogentin 1 mg Tablet] 1 mg PO Q12 12/07/18 Budesonide/Formoterol Fumarate [Symbicort HFA 160-4.5 mcg Inhaler 6 gm] 2 puff IH Q12 12/07/18 Bupropion HCl [Wellbutrin Sr 150 mg Tablet] 150 mg PO QPM 12/07/18 Doxepin HCl [Sinequan 10 mg Capsule] 20 mg PO QHS 12/07/18 Duloxetine HCl [Cymbalta] 60 mg PO Q12 12/07/18 Furosemide [Lasix 40 mg Tablet] 40 mg PO BID 12/07/18 Gabapentin [Neurontin 300 mg Capsule] 300 mg PO Q12 12/07/18 Insulin Glargine,Hum.rec.anlog [Lantus Insulin 100 Unit/1 ml 10 ml] 55 units SQ QAM 12/07/18 Insulin Glargine,Hum.rec.anlog [Lantus Insulin 100 Unit/1 ml 10 ml] 65 units SQ QPM 12/07/18 Insulin Lispro [Humalog Kwikpen U-100] 0 units SQ .PERSLIDINGSCALE 12/07/18 Irbesartan [Avapro] 150 mg PO QAM 12/07/18 Levothyroxine Sodium 50 mcg PO Q6AM 12/07/18 Nitroglycerin [Nitro-Dur 5 mg (0.2 mg/Hr) Transdermal Patch] 1 patch TD DAILY 12/07/18 Omeprazole 40 mg PO Q12 12/07/18 Oxycodone HCl/Acetaminophen [Percocet 10-325 mg Tablet] 1 tab PO Q8HP PRN Saxagliptin HCl [Onglyza] 2.5 mg PO QAM 12/07/18 Topiramate [Topamax] 300 mg PO QHS 12/07/18 Meclizine HCl [Antivert 25 mg Tablet] 25 mg PO TIDP PRN 04/30/19 Triamcinolone Acetonide 1 applic TP DAILY MDD face 04/30/19 Triamcinolone Acetonide [Aristocort 0.1% Ointment 15 gm] 1 applic TP BID MDD legs 04/30/19 Allergies/Adverse Reactions: cephalexin monohydrate [From Keflex] Allergy (Unknown, Verified 04/29/19 15:45) codeine [Codeine] Allergy (Unknown, Verified 04/29/19 15:45) dicyclomine HCl [From Bentyl] Allergy (Unknown, Verified 04/29/19 15:45) hydrocodone bitartrate [From Vicodin] Allergy (Unknown, Verified 04/29/19 15:45) meloxicam [From Mobic] Allergy (Unknown, Verified 04/29/19 15:45) meperidine HCl [From Demerol (PF)] Allergy (Unknown, Verified 04/29/19 15:45) morphine [Morphine] Allergy (Unknown, Verified 04/29/19 15:45) naproxen sodium [From Naprelan CR Dosepak] Allergy (Unknown, Verified 04/29/19 15:45) nitrofurantoin [From Macrobid] Allergy (Unknown, Verified 04/29/19 15:45) pantoprazole sodium [From Protonix] Allergy (Unknown, Verified 04/29/19 15:45) Penicillins Allergy (Unknown, Verified 04/29/19 15:45) Sulfa (Sulfonamide Antibiotics) Allergy (Unknown, Verified 04/29/19 15:45) aspirin Allergy (Verified 04/29/19 15:45) lamotrigine [From Lamictal] Allergy (Verified 04/29/19 15:45) rash Review of Systems Constitutional: PRESENT: weakness Eyes: PRESENT: visual disturbances Ears: ABSENT: hearing changes Nose, Mouth, and Throat: ABSENT: as per HPI, headache(s), mouth pain, sore th roat, vertigo, other Cardiovascular: ABSENT: chest pain, dyspnea on exertion, edema, orthropnea, palpitations Respiratory: ABSENT: cough, hemoptysis Gastrointestinal: PRESENT: abdominal pain, hematochezia. ABSENT: bloating, constipation, diarrhea, dysphagia, heartburn, nausea, vomiting Genitourinary: ABSENT: dysuria, hematuria Integumentary: ABSENT: rash, wounds Neurological: ABSENT: abnormal gait, abnormal speech, confusion, dizziness, focal weakness, syncope Psychiatric: ABSENT: anxiety, depression, homidical ideation, suicidal ideation Endocrine: ABSENT: cold intolerance, heat intolerance, polydipsia, polyuria Hematologic/Lymphatic: PRESENT: easy bleeding - lower GI Allergic/Immunologic: ABSENT: seasonal rhinorrhea Physical Exam Vital Signs: Temp Pulse Resp BP Pulse Ox 99.1 F 89 16 131/79 H 100 04/30/19 18:44 04/30/19 18:44 04/30/19 18:44 04/30/19 18:44 04/30/19 18:44 Intake & Output 04/29/19 04/30/19 05/01/19 06:59 06:59 06:59 Intake Total 300 1830 Balance 300 1830 Weight 137.9 kg General appearance: PRESENT: morbidly obese Head exam: PRESENT: atraumatic, normocephalic Eye exam: PRESENT: conjunctiva pink, EOMI, PERRLA. ABSENT: scleral icterus Ear exam: PRESENT: normal external ear exam Mouth exam: PRESENT: moist Teeth exam: PRESENT: poor dentation Respiratory exam: PRESENT: clear to auscultation christine Cardiovascular exam: PRESENT: RRR. ABSENT: diastolic murmur, rubs, systolic murmur Vascular exam: PRESENT: pallor GI/Abdominal exam: PRESENT: normal bowel sounds, soft. ABSENT: distended, guarding, mass, organolmegaly, rebound, tenderness Rectal exam: PRESENT: deferred Extremities exam: ABSENT: pedal edema Musculoskeletal exam: PRESENT: deformity Neurological exam: PRESENT: alert, awake, oriented to person, oriented to place, oriented to time, oriented to situation, CN II-XII grossly intact. ABSENT: motor sensory deficit Psychiatric exam: PRESENT: appropriate affect, normal mood. ABSENT: homicidal ideation, suicidal ideation Skin exam: PRESENT: dry, warm Results Laboratory Results: 04/30/19 12:38 04/29/19 19:37 04/29/19 04/29/19 04/29/19 19:37 19:37 19:55 WBC 10.5 RBC 2.26 L Hgb 5.3 L Hct 17.0 L MCV 75 L MCH 23.3 L MCHC 31.1 L RDW 21.8 H Plt Count 335 Seg Neutrophils % 76.0 Sodium 137.3 Potassium 3.8 Chloride 98 Carbon Dioxide 27 Anion Gap 12 BUN 13 Creatinine 1.45 H Est GFR ( Amer) 45 L Glucose 149 H Calcium 9.1 Total Bilirubin 0.3 AST 18 Alkaline Phosphatase 186 H Total Protein 7.9 Albumin 4.1 Urine Color STRAW Urine Appearance CLEAR Urine pH 6.0 Ur Specific Lambert 1.007 Urine Protein NEGATIVE Urine Glucose (UA) NEGATIVE Urine Ketones NEGATIVE Urine Blood NEGATIVE Urine Nitrite NEGATIVE Ur Leukocyte Esterase NEGATIVE Urine WBC (Auto) 1 Urine RBC (Auto) 1 Blood Type Antibody Screen 04/29/19 04/30/19 20:18 12:38 WBC 10.9 H RBC 2.64 L Hgb 6.7 L Hct 20.4 L MCV 77 L MCH 25.4 L MCHC 32.8 RDW 20.7 H Plt Count 285 Seg Neutrophils % 76.9 Sodium Potassium Chloride Carbon Dioxide Anion Gap BUN Creatinine Est GFR ( Amer) Glucose Calcium Total Bilirubin AST Alkaline Phosphatase Total Protein Albumin Urine Color Urine Appearance Urine pH Ur Specific Lambert Urine Protein Urine Glucose (UA) Urine Ketones Urine Blood Urine Nitrite Ur Leukocyte Esterase Urine WBC (Auto) Urine RBC (Auto) Blood Type O POSITIVE Antibody Screen NEGATIVE 04/29/19 19:37 Troponin I < 0.012 Impressions: Head CT 04/29/19 18:53 IMPRESSION: No acute intracranial hemorrhage. Abdomen/Pelvis CT 04/29/19 18:55 IMPRESSION: Findings consistent with partial distal small bowel obstruction. GI Bleed Scan Nuclear Medicine 04/30/19 13:21 IMPRESSION: There is accumulation of focal activity in the left suggesting active bleeding. Assessment & Plan - Diagnosis (1) Lower GI bleed Is this a current diagnosis for this admission?: Yes Plan: See admitting attending physician orders for details about care plan. (2) Anemia associated with acute blood loss Is this a current diagnosis for this admission?: Yes Plan: See admitting attending physician orders for details about care plan. (3) Partial obstruction of small intestine Is this a current diagnosis for this admission?: Yes Plan: See admitting attending physician orders for details about care plan. (4) Insulin dependent diabetes mellitus Is this a current diagnosis for this admission?: Yes Plan: See admitting attending physician orders for details about care plan. (5) HTN (hypertension) Qualifiers: Hypertension type: essential hypertension Qualified Code(s): I10 - Essential (primary) hypertension Is this a current diagnosis for this admission?: Yes Plan: See admitting attending physician orders for details about care plan. (6) Chronic schizoaffective disorder Is this a current diagnosis for this admission?: Yes Plan: See admitting attending physician orders for details about care plan. - Time Time Spent: 50 to 70 Minutes Medications reviewed and adjusted accordingly: Yes Anticipated discharge: Home with Homehealth Within: Other - Inpatient Certification Based on my medical assessment, after consideration of the patient's comorbidities, presenting symptoms, or acuity I expect that the services needed warrant INPATIENT care.: Yes I certify that my determination is in accordance with my understanding of Medicare's requirements for reasonable and necessary INPATIENT services [42 CFR 412.3e].: Yes Medical Necessity: Significant Comorbidiites Make Outpatient Treatment Too [place]is [place], Need Close Monitoring Due to Risk of Patient Decompensation, Need For IV Fluids, Need For Continuous Telemetry Monitoring, Risk of Complication if Not Cared For in Hospital, Risk of Diagnosis Which Will Require Inpatient Eval/Care/Monitoring Post Hospital Care: D/C Transitional Nurse Documentation - Plan Summary Plan Summary: See admitting attending physician orders for details about care plan.
== END 2019-04-30 20:13 | disposition left against medical advice (07) | DRG 378 ==
LOC: ER 15:08 → EH 22:23 → 3W 04-30 01:19
PROVIDERS: ADMIT Internal Medicine Geriatric Medicine; ATTEND Internal Medicine Geriatric Medicine
PROC: 30233N1 Transfusion of Nonautologous Red Blood Cells into Peripheral Vein, Percutaneous Approach (ICD-10-PCS; principal; 2019-04-30)
DX: K92.1 Melena (principal); D62 Acute posthemorrhagic anemia; I10 Essential (primary) hypertension; F20.9 Schizophrenia, unspecified; I25.2 Old myocardial infarction; I11.0 Hypertensive heart disease with heart failure; I50.9 Heart failure, unspecified; I25.10 Atherosclerotic heart disease of native coronary artery without angina pectoris; I73.9 Peripheral vascular disease, unspecified; E11.9 Type 2 diabetes mellitus without complications; K21.9 Gastro-esophageal reflux disease without esophagitis; M19.90 Unspecified osteoarthritis, unspecified site; E66.01 Morbid (severe) obesity due to excess calories; F43.10 Post-traumatic stress disorder, unspecified; Z95.5 Presence of coronary angioplasty implant and graft; Z87.891 Personal history of nicotine dependence; Z79.4 Long term (current) use of insulin; Z79.899 Other long term (current) drug therapy; Z88.1 Allergy status to other antibiotic agents; Z88.8 Allergy status to other drugs, medicaments and biological substances; Z88.0 Allergy status to penicillin; Z88.2 Allergy status to sulfonamides; Z53.29 Procedure and treatment not carried out because of patient's decision for other reasons
CPT/HCPCS: 36415; 36430; 36591; 70450; 74176; 78278; 80053; 81001; 82962; 84484; 85025; 85610; 85730; 86850; 86900; 86901; 86920; 93005; 93010; 99285; A9560; J1642; J1815; J3490; P9016; Q9969

== ENCOUNTER 2019-05-14 10:53 | Emergency (ER) | payer MEDICARE, MEDICAID ==
--- NOTE | 2019-05-14 11:09 | ER Document Report ---
ED Medical Screen (RME) - General Chief Complaint: Abnormal Lab Results Stated Complaint: ABNORMAL LABS Time Seen by Provider: 05/14/19 11:08 Primary Care Provider: JASSON MARTINI MD [Primary Care Provider] - Follow up as needed TRAVEL OUTSIDE OF THE [place] IN LAST 30 DAYS: No - HPI Notes: 05/14/19 11:12 59 year old female to the ED for abnormally low hemoglobin. She was sent over by PCP. Apparently her Hbg is 6. Patient is symptomatic-- she admits to weakness and lightheadheadedness. Denies any chest pain, SOB, NVD, abd pain. Does admit to rectal bleeding. I performed a brief medical screening exam on this patient and determined he needs further management and evaluation by means at ER provider. I placed initial orders to help expedite in his treatment plan today to include lab work and medications. - Related Data Allergies/Adverse Reactions: cephalexin monohydrate [From Keflex] Allergy (Unknown, Verified 05/14/19 11:09) codeine [Codeine] Allergy (Unknown, Verified 05/14/19 11:09) dicyclomine HCl [From Bentyl] Allergy (Unknown, Verified 05/14/19 11:09) hydrocodone bitartrate [From Vicodin] Allergy (Unknown, Verified 05/14/19 11:09) meloxicam [From Mobic] Allergy (Unknown, Verified 05/14/19 11:09) meperidine HCl [From Demerol (PF)] Allergy (Unknown, Verified 05/14/19 11:09) morphine [Morphine] Allergy (Unknown, Verified 05/14/19 11:09) naproxen sodium [From Naprelan CR Dosepak] Allergy (Unknown, Verified 05/14/19 11:09) nitrofurantoin [From Macrobid] Allergy (Unknown, Verified 05/14/19 11:09) pantoprazole sodium [From Protonix] Allergy (Unknown, Verified 05/14/19 11:09) Penicillins Allergy (Unknown, Verified 04/29/19 15:45) Sulfa (Sulfonamide Antibiotics) Allergy (Unknown, Verified 04/29/19 15:45) aspirin Allergy (Verified 04/29/19 15:45) lamotrigine [From Lamictal] Allergy (Verified 04/29/19 15:45) rash Past Medical History - Social History Family history: Reviewed & Not Pertinent - Past Medical History Cardiac Medical History: Reports: Hx Congestive Heart Failure, Hx Coronary Artery Disease, Hx Heart Attack, Hx Hypercholesterolemia, Hx Hypertension, Hx Peripheral Vascular Disease Denies: Hx Heart Murmur Pulmonary Medical History: Reports: Hx Asthma, Hx COPD, Hx Sleep Apnea Denies: Hx Bronchitis, Hx Pneumonia, Hx Respiratory Failure, Hx Tuberculosis Neurological Medical History: Reports: Hx Migraine. Denies: Hx Cerebrovascular Accident, Hx Seizures, Hx Parkinson's Disease Endocrine Medical History: Reports: Hx Diabetes Mellitus Type 2, Hx Hyperthyroidism, Hx Hypothyroidism Renal/ Medical History: Reports: Hx Renal Insufficiency. Denies: Hx End Stage Renal Disease, Hx Kidney Stones, Hx Peritoneal Dialysis Malignancy Medical History: GI Medical History: Reports: Hx Gastroesophageal Reflux Disease. Denies: Hx Cirrhosis, Hx Pancreatitis, Hx Ulcer Musculoskeltal Medical History: Reports Hx Arthritis, Reports Hx Fibromyalgia, Denies Hx Multiple Sclerosis, Reports Hx Muscle Weakness, Denies Hx Systemic Lupus Erythematosus Psychiatric Medical History: Reports: Hx Depression, Hx Post Traumatic Stress Disorder Denies: Hx Bipolar Disorder, Hx Schizophrenia Traumatic Medical History: Infectious Medical History: Past Surgical History: Reports: Hx Cardiac Catheterization, Hx Section - x2, Hx Coronary Artery Bypass Graft, Hx Coronary Stent - x2, Hx Hysterectomy, Hx Orthopedic Surgery, Hx Tubal Ligation, Other - multiple colonoscopies for lower GI bleed - Immunizations Hx Diphtheria, Pertussis, Tetanus Vaccination: Yes Doctor's Discharge - Discharge Referrals: JASSON MARTINI MD [Primary Care Provider] - Follow up as needed
[2019-05-14 12:48] LABS: ALBUMIN 3.8 g/dL (3.5-5.0); ALKALINE PHOSPHATASE 156 U/L (38-126); ANION GAP 10 (5-19); ASPARTATE AMINO TRANSFERASE 16 U/L (14-36); BILIRUBIN,DIRECT 0.1 mg/dL (0.0-0.4); BILIRUBIN,TOTAL 0.2 mg/dL (0.2-1.3); BLOOD UREA NITROGEN 13 mg/dL (7-20); CALCIUM 9.1 mg/dL (8.4-10.2); CARBON DIOXIDE 26 mmol/L (22-30); CHLORIDE 104 mmol/L (98-107); GLUCOSE 120 mg/dL (75-110); POTASSIUM 3.9 mmol/L (3.6-5.0); TOTAL PROTEIN 7.5 g/dL (6.3-8.2)
[2019-05-14 13:24] LABS: ABSOLUTE EOSINOPHILS # (AUTO) 0.3 10^3/uL (0.0-0.6); ABSOLUTE LYMPHOCYTES (AUTO) 1.8 10^3/uL (0.5-4.7); ABSOLUTE MONOCYTES (AUTO) 0.6 10^3/uL (0.1-1.4); BASOPHILS % (AUTO) 0.6 % (0-2); EOSINOPHILS % (AUTO) 3.1 % (0-6); LYMPHOCYTES % (AUTO) 20.7 % (13-45); MEAN CORPUSCULAR HEMOGLOBIN 24.7 pg (27.0-33.4); MEAN CORPUSCULAR HGB CONC 31.9 g/dL (32.0-36.0); MEAN CORPUSCULAR VOLUME 77 fl (80-97); MONOCYTES % (AUTO) 6.3 % (3-13); PLATELET COUNT 344 10^3/uL (150-450); RED BLOOD COUNT 2.97 10^6/uL (3.72-5.28); RED CELL DISTRIBUTION WIDTH 21.3 % (11.5-14.0); SEGMENTED NEUTROPHILS % (AUTO) 69.3 % (42-78); TOTAL CELLS COUNTED % (AUTO) 100 %; WHITE BLOOD COUNT 8.7 10^3/uL (4.0-10.5)
[2019-05-14 13:29] LABS: HEMOGLOBIN 7.3 g/dL (12.0-15.5)
[2019-05-14] MEDS ORDERED: NORMAL SALINE 250 ML IV PRN (13:48)
--- NOTE | 2019-05-14 13:49 | ER Document Report ---
ED General - General Chief Complaint: Abnormal Lab Results Stated Complaint: ABNORMAL LABS Time Seen by Provider: 05/14/19 11:08 Primary Care Provider: [facility] [Provider Group] - Follow up in 3-5 days KEN STOKES MD [ACTIVE STAFF] - Follow up in 3-5 days Notes: Patient is a 5-year-old female who presents to the emergency department with a low hemoglobin of 6.9 at [facility]. She was seen here in the hospital and was admitted on 29 April and left AGAINST MEDICAL ADVICE at that time. She received 2 blood transfusions. Patient states that she has had tarry stools, but they have gone down. Patient denies any dizziness, drowsiness, lethargy, or any other symptoms at this time. Patient states that she does not want to see the surgical list here in the hospital and would like to be referred out to a GI doctor in [facility]. Patient denies any nausea or vomiting. Denies hematemesis. TRAVEL OUTSIDE OF THE [place] IN LAST 30 DAYS: No - Related Data Allergies/Adverse Reactions: cephalexin monohydrate [From Keflex] Allergy (Unknown, Verified 05/14/19 11:09) codeine [Codeine] Allergy (Unknown, Verified 05/14/19 11:09) dicyclomine HCl [From Bentyl] Allergy (Unknown, Verified 05/14/19 11:09) hydrocodone bitartrate [From Vicodin] Allergy (Unknown, Verified 05/14/19 11:09) meloxicam [From Mobic] Allergy (Unknown, Verified 05/14/19 11:09) meperidine HCl [From Demerol (PF)] Allergy (Unknown, Verified 05/14/19 11:09) morphine [Morphine] Allergy (Unknown, Verified 05/14/19 11:09) naproxen sodium [From Naprelan CR Dosepak] Allergy (Unknown, Verified 05/14/19 11:09) nitrofurantoin [From Macrobid] Allergy (Unknown, Verified 05/14/19 11:09) pantoprazole sodium [From Protonix] Allergy (Unknown, Verified 05/14/19 11:09) Penicillins Allergy (Unknown, Verified 04/29/19 15:45) Sulfa (Sulfonamide Antibiotics) Allergy (Unknown, Verified 04/29/19 15:45) aspirin Allergy (Verified 04/29/19 15:45) lamotrigine [From Lamictal] Allergy (Verified 04/29/19 15:45) rash Past Medical History - Social History Smoking Status: Never Smoker Chew tobacco use (# tins/day): No Frequency of alcohol use: None Drug Abuse: None Family History: None, Hypertension Patient has suicidal ideation: No Patient has homicidal ideation: No - Past Medical History Cardiac Medical History: Reports: Hx Congestive Heart Failure, Hx Coronary Artery Disease, Hx Heart Attack, Hx Hypercholesterolemia, Hx Hypertension, Hx Peripheral Vascular Disease Denies: Hx Heart Murmur Pulmonary Medical History: Reports: Hx Asthma, Hx COPD, Hx Sleep Apnea Denies: Hx Bronchitis, Hx Pneumonia, Hx Respiratory Failure, Hx Tuberculosis Neurological Medical History: Reports: Hx Migraine. Denies: Hx Cerebrovascular Accident, Hx Seizures, Hx Parkinson's Disease Endocrine Medical History: Reports: Hx Diabetes Mellitus Type 2, Hx Hyperthyroidism, Hx Hypothyroidism Renal/ Medical History: Reports: Hx Renal Insufficiency. Denies: Hx End Stage Renal Disease, Hx Kidney Stones, Hx Peritoneal Dialysis Malignancy Medical History: GI Medical History: Reports: Hx Gastroesophageal Reflux Disease. Denies: Hx Cirrhosis, Hx Pancreatitis, Hx Ulcer Musculoskeletal Medical History: Reports Hx Arthritis, Reports Hx Fibromyalgia, Denies Hx Multiple Sclerosis, Reports Hx Muscle Weakness, Denies Hx Systemic Lupus Erythematosus Psychiatric Medical History: Reports: Hx Depression, Hx Post Traumatic Stress Disorder Denies: Hx Bipolar Disorder, Hx Schizophrenia Traumatic Medical History: Infectious Medical History: Past Surgical History: Reports: Hx Cardiac Catheterization, Hx Section - x2, Hx Coronary Artery Bypass Graft, Hx Coronary Stent - x2, Hx Hysterectomy, Hx Orthopedic Surgery, Hx Tubal Ligation, Other - multiple colonoscopies for lower GI bleed - Immunizations Hx Diphtheria, Pertussis, Tetanus Vaccination: Yes Hx Pneumococcal Vaccination: 04/02/13 Review of Systems - Review of Systems Notes: REVIEW OF SYSTEMS: CONSTITUTIONAL : Denies recent illness. Denies recent unintentional weight loss. Denies fever, chills, or sweats. EENT: Denies eye, ear, throat, or mouth pain, discharge, or symptoms. Denies nasal or sinus congestion. CARDIOVASCULAR: Denies chest pain. RESPIRATORY: Denies shortness of breath, cough, congestion, difficulty breathing, or wheezing. GASTROINTESTINAL: See HPI. GENITOURINARY: Denies difficulty urinating, burning, blood in urine, urgency or frequency. MUSCULOSKELETAL: Denies neck and back pain. Denies joint pain or swelling. SKIN: Denies rash, itchiness, or lesions HEMATOLOGIC : See HPI. LYMPHATIC: Denies swollen, painful, enlarged glands. NEUROLOGICAL: Denies no numbness or tingling denies weakness. Denies headache. Denies altered mental status. Denies alteration in speech. PSYCHIATRIC: Denies stress, anxiety, alteration in sleep patterns, or depression. All other systems reviewed and negative. Physical Exam - Vital signs Vitals: Temp Pulse BP Pulse Ox 97.9 F 88 122/58 L 98 05/14/19 11:01 05/14/19 11:01 05/14/19 11:05/14/19 11:01 - Notes Notes: PHYSICAL EXAMINATION: GENERAL: Appears well, healthy, well-nourished, no acute distress. HEAD: Normocephalic, atraumatic. EYES: PERRL, conjunctiva normal, all extraocular movements intact, sclera nonicteric ENT: Moist mucous membranes. NECK: Supple, no noticeable swelling, redness, rash. Normal range of motion. LUNGS: Equal breath sounds bilaterally and clear to auscultation. No wheezes rales or rhonchi. CARDIOVASCULAR: S1-S2, regular rate, regular rhythm. Radial pulses 2+, normal. ABDOMEN: Normoactive bowel sounds. Soft, nontender, no guarding, no rebound tenderness, and no masses palpated. EXTREMITIES: Normal strength and range of motion, no pitting or edema. No cyano sis. NEUROLOGICAL: Moves all extremities upon command. Strength 5/5 in all extremities. PSYCH: Normal mood, normal affect. SKIN: Warm, dry. No rash, lesions, ulcerations noted. Normal skin turgor. Course - Re-evaluation Re-evalutation: 05/14/19 14:34 Patient is in agreement with a blood transfusion, but she adamantly states that she does not want to have a colonoscopy done. A told her the risks of not getting a colonoscopy in evaluating the cause of her bleeding and she states that she is fine with that and she does not want another colonoscopy due to the bowel prep. I gave her other options for bowel prep and she is still refusing to get the colonoscopy done. Patient states her last colonoscopy was a year ago. Patient is refusing a rectal exam. 05/14/19 18:40 I have advised the patient to follow-up with her primary care provider. I have also advised the patient to return to the emergency department if she has worsening symptoms. She will be referred out to Dr. Stokes for GI follow-up. I have advised the patient that I would much rather her being here in the hospital, but she is adamant about not being admitted. Discussed the risks of leaving. Patient still does not want to be admitted. Follow-up precautions were given. Verbal discharge instructions were given to the patient. They verbalized understanding. They are stable for discharge. - Vital Signs Vital signs: Temp Pulse Resp BP Pulse Ox 97.9 F 88 12 111/92 H 100 05/14/19 18:10 05/14/19 18:10 05/14/19 18:30 05/14/19 18:30 05/14/19 18:29 - Laboratory Result Diagrams: 05/14/19 12:55 05/14/19 11:45 Laboratory results interpreted by me: 05/14/19 05/14/19 05/14/19 11:45 11:45 12:55 RBC 2.97 L Hgb 7.3 L Hct 23.0 L MCV 77 L MCH 24.7 L MCHC 31.9 L RDW 21.3 H Creatinine 1.35 H Est GFR ( Amer) 48 L Est GFR (MDRD) Non-Af 40 L Glucose 120 H POC Glucose Alkaline Phosphatase 156 H Crossmatch See Detail 05/14/19 15:01 RBC Hgb Hct MCV MCH MCHC RDW Creatinine Est GFR ( Amer) Est GFR (MDRD) Non-Af Glucose POC Glucose 137 H Alkaline Phosphatase Crossmatch Discharge - Discharge Clinical Impression: Anemia Qualifiers: Anemia type: unspecified type Qualified Code(s): D64.9 - Anemia, unspecified GI bleed Qualifiers: GI bleed type/associated pathology: unspecified gastrointestinal hemorrhage type Qualified Code(s): K92.2 - Gastrointestinal hemorrhage, unspecified Condition: Stable Disposition: HOME, SELF-CARE Additional Instructions: You were seen today in the emergency department for low hemoglobin and hematocrit on outpatient labs. You received a unit of blood here in the emerge ncy department. You are refusing to be seen by the surgical list here in the emergency department and are opting to be seen outpatient by a GI doctor. Please follow-up with the GI doctor below. Please also follow-up with your primary care provider. If you have worsening symptoms, pass out, or have any symptoms that you, please return to the emergency department. Referrals: KEN STOKES MD [ACTIVE STAFF] - Follow up in 3-5 days [facility] [Provider Group] - Follow up in 3-5 days
[2019-05-14] MEDS ORDERED: ACETAMINOPHEN 325 MG TABLET PO ONE (15:14)
[2019-05-14 18:39] VITALS: BP 130/72
== END 2019-05-14 19:00 | disposition home or self-care (01) ==
LOC: ER 10:53
DX: D64.9 Anemia, unspecified (principal); K92.2 Gastrointestinal hemorrhage, unspecified; R53.1 Weakness; R42 Dizziness and giddiness; I11.0 Hypertensive heart disease with heart failure; I50.9 Heart failure, unspecified; I25.10 Atherosclerotic heart disease of native coronary artery without angina pectoris; E78.00 Pure hypercholesterolemia, unspecified; E11.9 Type 2 diabetes mellitus without complications; Z88.0 Allergy status to penicillin; Z95.1 Presence of aortocoronary bypass graft; Z88.6 Allergy status to analgesic agent; Z90.710 Acquired absence of both cervix and uterus; Z88.2 Allergy status to sulfonamides; I25.2 Old myocardial infarction
CPT/HCPCS: 86900; 86901; 36415; 36430; 86850; 82962; 85025; 80053; 86920; P9016; J7050; J1642; 36591; 99284

== ENCOUNTER 2019-06-17 12:23 | Emergency (ER) | payer MEDICARE, MEDICAID ==
--- NOTE | 2019-06-17 14:57 | ER Document Report ---
ED Medical Screen (RME) - General Chief Complaint: Abnormal Lab Results Stated Complaint: ABNORMAL LABS Time Seen by Provider: 06/17/19 14:50 Primary Care Provider: JAZMÍN GURROLA PA-C [Primary Care Provider] - Follow up as needed Mode of Arrival: Wheelchair Information source: Patient Notes: This 59-year-old female with history of diabetes cardiac disease anemia presents to the emergency department because her doctor told her to come here. She reports he told her she had abnormal lab something going on with her sugar and something going on with her heart. She reports she had chest pain last night but she took a little white pill meaning her nitro and felt better. She reports she feels better now because she has her nitro patch on. Patient is insisting there is nothing wrong with her heart. She also reports that she has been bleeding somewhere she goes to oncology and receives a shot. She denies bleeding out anywhere. Her mother told her not to leave this time so she is not going to leave. I have greeted and performed a rapid initial assessment of this patient. A comprehensive ED assessment and evaluation of the patient, analysis of test res ults and completion of the medical decision making process will be conducted by additional ED providers. Dictation of this chart was performed using voice recognition software; therefore, there may be some unintended grammatical errors. TRAVEL OUTSIDE OF THE [place] IN LAST 30 DAYS: No - Related Data Allergies/Adverse Reactions: cephalexin monohydrate [From Keflex] Allergy (Unknown, Verified 05/14/19 11:09) codeine [Codeine] Allergy (Unknown, Verified 05/14/19 11:09) dicyclomine HCl [From Bentyl] Allergy (Unknown, Verified 05/14/19 11:09) hydrocodone bitartrate [From Vicodin] Allergy (Unknown, Verified 05/14/19 11:09) meloxicam [From Mobic] Allergy (Unknown, Verified 05/14/19 11:09) meperidine HCl [From Demerol (PF)] Allergy (Unknown, Verified 05/14/19 11:09) morphine [Morphine] Allergy (Unknown, Verified 05/14/19 11:09) naproxen sodium [From Naprelan CR Dosepak] Allergy (Unknown, Verified 05/14/19 11:09) nitrofurantoin [From Macrobid] Allergy (Unknown, Verified 05/14/19 11:09) pantoprazole sodium [From Protonix] Allergy (Unknown, Verified 05/14/19 11:09) Penicillins Allergy (Unknown, Verified 04/29/19 15:45) Sulfa (Sulfonamide Antibiotics) Allergy (Unknown, Verified 04/29/19 15:45) aspirin Allergy (Verified 04/29/19 15:45) lamotrigine [From Lamictal] Allergy (Verified 04/29/19 15:45) rash Past Medical History - Social History Family history: Reviewed & Not Pertinent - Past Medical History Cardiac Medical History: Reports: Hx Congestive Heart Failure, Hx Coronary Artery Disease, Hx Heart Attack, Hx Hypercholesterolemia, Hx Hypertension, Hx Peripheral Vascular Disease Denies: Hx Heart Murmur Pulmonary Medical History: Reports: Hx Asthma, Hx COPD, Hx Sleep Apnea Denies: Hx Bronchitis, Hx Pneumonia, Hx Respiratory Failure, Hx Tuberculosis Neurological Medical History: Reports: Hx Migraine. Denies: Hx Cerebrovascular Accident, Hx Seizures, Hx Parkinson's Disease Endocrine Medical History: Reports: Hx Diabetes Mellitus Type 2, Hx Hyperthyroidism, Hx Hypothyroidism Renal/ Medical History: Reports: Hx Renal Insufficiency. Denies: Hx End Stage Renal Disease, Hx Kidney Stones, Hx Peritoneal Dialysis Malignancy Medical History: GI Medical History: Reports: Hx Gastroesophageal Reflux Disease. Denies: Hx Cirrhosis, Hx Pancreatitis, Hx Ulcer Musculoskeltal Medical History: Reports Hx Arthritis, Reports Hx Fibromyalgia, Denies Hx Multiple Sclerosis, Reports Hx Muscle Weakness, Denies Hx Systemic Lupus Erythematosus Psychiatric Medical History: Reports: Hx Depression, Hx Post Traumatic Stress Disorder Denies: Hx Bipolar Disorder, Hx Schizophrenia Traumatic Medical History: Infectious Medical History: Past Surgical History: Reports: Hx Cardiac Catheterization, Hx Section - x2, Hx Coronary Artery Bypass Graft, Hx Coronary Stent - x2, Hx Hysterectomy, Hx Orthopedic Surgery, Hx Tubal Ligation, Other - multiple colonoscopies for lower GI bleed - Immunizations Hx Diphtheria, Pertussis, Tetanus Vaccination: Yes Physical Exam - Vital signs Vitals: Temp Pulse Resp BP Pulse Ox 98.4 F 95 18 124/69 100 06/17/19 12:34 06/17/19 12:34 06/17/19 12:34 06/17/19 12:34 06/17/19 12:34 Course - Vital Signs Vital signs: Temp Pulse Resp BP Pulse Ox 98.4 F 95 18 124/69 100 06/17/19 14:48 06/17/19 12:34 06/17/19 14:48 06/17/19 12:34 06/17/19 14:48 Doctor's Discharge - Discharge Referrals: JAZMÍN GURROLA PA-C [Primary Care Provider] - Follow up as needed
--- NOTE | 2019-06-17 15:19 | RADIOLOGY REPORT (SQ) ---
EXAM DESCRIPTION: CHEST 2 VIEWS COMPLETED DATE/TIME: 06/17/2019 3:09 pm REASON FOR STUDY: cp COMPARISON: 03/04/2019 NUMBER OF VIEWS: Two views. TECHNIQUE: Frontal and lateral radiographic views of the chest acquired. LIMITATIONS: None. FINDINGS: LUNGS AND PLEURA: No opacities, masses or pneumothorax. No pleural effusion. MEDIASTINUM AND HILAR STRUCTURES: No masses or contour abnormality. HEART AND VASCULAR STRUCTURES: Cardiac enlargement. Vascular congestion. BONES: No acute findings. HARDWARE: Venous access catheter. Tip in the right atrium. OTHER: No other significant finding. IMPRESSION: CARDIAC ENLARGEMENT. VASCULAR CONGESTION. TECHNICAL DOCUMENTATION: JOB ID: [id number] [employer]- All Rights Reserved Reading location - IP/workstation name: [email or web address]
[2019-06-17 17:24] LABS: ALBUMIN 3.9 g/dL (3.5-5.0); ALKALINE PHOSPHATASE 167 U/L (38-126); ANION GAP 11 (5-19); ASPARTATE AMINO TRANSFERASE 23 U/L (14-36); BILIRUBIN,DIRECT 0.2 mg/dL (0.0-0.4); BILIRUBIN,TOTAL 0.4 mg/dL (0.2-1.3); BLOOD UREA NITROGEN 9 mg/dL (7-20); CARBON DIOXIDE 22 mmol/L (22-30); CHLORIDE 109 mmol/L (98-107); CREATINE KINASE 44 U/L (30-135); GLUCOSE 142 mg/dL (75-110); POTASSIUM 4.1 mmol/L (3.6-5.0); TOTAL PROTEIN 7.2 g/dL (6.3-8.2)
[2019-06-17 18:39] LABS: HEMATOCRIT 24.4 % (36.0-47.0); MEAN CORPUSCULAR HEMOGLOBIN 25.6 pg (27.0-33.4); MEAN CORPUSCULAR HGB CONC 30.7 g/dL (32.0-36.0); MEAN CORPUSCULAR VOLUME 83 fl (80-97); RED BLOOD COUNT 2.93 10^6/uL (3.72-5.28); RED CELL DISTRIBUTION WIDTH 24.5 % (11.5-14.0); WHITE BLOOD COUNT 10.2 10^3/uL (4.0-10.5)
[2019-06-17 18:50] LABS: HEMOGLOBIN 7.5 g/dL (12.0-15.5)
[2019-06-17 18:54] LABS: ABSOLUTE LYMPHOCYTES# (MANUAL) 1.8 10^3/uL (0.5-4.7); ABSOLUTE MONOCYTES # (MANUAL) 0.5 10^3/uL (0.1-1.4); ANISOCYTOSIS 3+; BAND NEUTROPHILS % (MANUAL) 1 % (3-5); BASOPHILS % (MANUAL) 0 % (0-2); EOSINOPHILS % (MANUAL) 3 % (0-6); LYMPHOCYTES % (MANUAL) 18 % (13-45); MONOCYTES % (MANUAL) 5 % (3-13); SEGMENTED NEUTROPHILS % (MAN) 73 % (42-78); TOTAL CELLS COUNTED 100
[2019-06-17 18:55] LABS: OVALOCYTES SLIGHT; PLATELET COMMENT ADEQUATE; TEAR DROP CELLS SLIGHT
[2019-06-17 18:56] LABS: PLATELET CLUMPS PRESENT; PLATELET COUNT 210 10^3/uL (150-450)
--- NOTE | 2019-06-17 19:33 | ER Document Report ---
ED General - General Chief Complaint: Abnormal Lab Results Stated Complaint: ABNORMAL LABS Time Seen by Provider: 06/17/19 14:50 Primary Care Provider: JAZMÍN GURROLA PA-C [Primary Care Provider] - Follow up as needed Mode of Arrival: Wheelchair TRAVEL OUTSIDE OF THE [place] IN LAST 30 DAYS: No - HPI Notes: Patient is a 59-year-old female, very poor historian, who presents to the emergency department for evaluation. She was seen at [facility]. She was contacted by the nurse, told that her blood sugar was over 500 and that her EKG was abnormal. The patient states she had some chest pain yesterday which she took nitroglycerin and it went away. She denies any chest pain at this time. She states she has not had any since yesterday. She is wearing her patch. Patient states that she does not believe anything is wrong with her heart. Patient states that she is receiving a "shot" for her anemia. She was told that she has an ulcer in her upper abdomen, and had a colonoscopy but her prep was inadequate, so she is supposed to have another one. She states, however, that she cannot get the [facility] make this happen. The patient states that she wants to start seeing Dr. Sharp again. She states she has lower abdominal pain that has been going on for years. She states she is taking her medications as prescribed she cannot tell me what all of her medications are. Patient states that she got a hold of her doctor because she believes she has a urinary tract infection. - Related Data Allergies/Adverse Reactions: cephalexin monohydrate [From Keflex] Allergy (Unknown, Verified 05/14/19 11:09) codeine [Codeine] Allergy (Unknown, Verified 05/14/19 11:09) dicyclomine HCl [From Bentyl] Allergy (Unknown, Verified 05/14/19 11:09) hydrocodone bitartrate [From Vicodin] Allergy (Unknown, Verified 05/14/19 11:09) meloxicam [From Mobic] Allergy (Unknown, Verified 05/14/19 11:09) meperidine HCl [From Demerol (PF)] Allergy (Unknown, Verified 05/14/19 11:09) morphine [Morphine] Allergy (Unknown, Verified 05/14/19 11:09) naproxen sodium [From Naprelan CR Dosepak] Allergy (Unknown, Verified 05/14/19 11:09) nitrofurantoin [From Macrobid] Allergy (Unknown, Verified 05/14/19 11:09) pantoprazole sodium [From Protonix] Allergy (Unknown, Verified 05/14/19 11:09) Penicillins Allergy (Unknown, Verified 04/29/19 15:45) Sulfa (Sulfonamide Antibiotics) Allergy (Unknown, Verified 04/29/19 15:45) aspirin Allergy (Verified 04/29/19 15:45) lamotrigine [From Lamictal] Allergy (Verified 04/29/19 15:45) rash Home Medications: Patient unsure of her medications, does not have a list. Past Medical History - General Information source: Patient - Social History Smoking Status: Former Smoker Family History: Reviewed & Not Pertinent, Hypertension Patient has suicidal ideation: No Patient has homicidal ideation: No - Past Medical History Cardiac Medical History: Reports: Hx Congestive Heart Failure, Hx Coronary Artery Disease, Hx Heart Attack, Hx Hypercholesterolemia, Hx Hypertension, Hx Peripheral Vascular Disease Denies: Hx Heart Murmur Pulmonary Medical History: Reports: Hx Asthma, Hx COPD, Hx Sleep Apnea Denies: Hx Bronchitis, Hx Pneumonia, Hx Respiratory Failure, Hx Tuberculosis Neurological Medical History: Reports: Hx Migraine. Denies: Hx Cerebrovascular Accident, Hx Seizures, Hx Parkinson's Disease Endocrine Medical History: Reports: Hx Diabetes Mellitus Type 2, Hx Hyperthyroidism, Hx Hypothyroidism Renal/ Medical History: Reports: Hx Renal Insufficiency. Denies: Hx End Stage Renal Disease, Hx Kidney Stones, Hx Peritoneal Dialysis Malignancy Medical History: GI Medical History: Reports: Hx Gastroesophageal Reflux Disease. Denies: Hx Cirrhosis, Hx Pancreatitis, Hx Ulcer Musculoskeletal Medical History: Reports Hx Arthritis, Reports Hx Fibromyalgia, Denies Hx Multiple Sclerosis, Reports Hx Muscle Weakness, Denies Hx Systemic Lupus Erythematosus Psychiatric Medical History: Reports: Hx Depression, Hx Post Traumatic Stress D isorder Denies: Hx Bipolar Disorder, Hx Schizophrenia Traumatic Medical History: Infectious Medical History: Past Surgical History: Reports: Hx Cardiac Catheterization, Hx Section - x2, Hx Coronary Artery Bypass Graft, Hx Coronary Stent - x2, Hx Hysterectomy, Hx Orthopedic Surgery, Hx Tubal Ligation, Other - multiple colonoscopies for lower GI bleed - Immunizations Hx Diphtheria, Pertussis, Tetanus Vaccination: Yes Hx Pneumococcal Vaccination: 04/02/13 Review of Systems - Review of Systems Constitutional: No symptoms reported EENT: No symptoms reported Cardiovascular: See HPI Respiratory: No symptoms reported Gastrointestinal: See HPI Genitourinary: See HPI Musculoskeletal: No symptoms reported Skin: No symptoms reported Neurological/Psychological: No symptoms reported Physical Exam - Vital signs Vitals: Temp Pulse Resp BP Pulse Ox 98.4 F 95 18 124/69 100 06/17/19 12:34 06/17/19 12:34 06/17/19 12:34 06/17/19 12:34 06/17/19 12:34 - Notes Notes: Vital signs reviewed, please refer to chart. Head is normocephalic, atraumatic. Pupils equal round, reactive to light. Neck is supple without meningismus. Heart is regular rate and rhythm. Lungs are clear to auscultation bilaterally. Abdomen is soft, nontender, normoactive bowel sounds throughout. Extremities without cyanosis, clubbing. 2+ pretibial edema noted. Posterior calves are nontender. Peripheral pulses are equal. Skin is warm and dry. Patient is awake, alert, neurological exam is nonfocal. Course - Re-evaluation Re-evalutation: 06/17/19 19:35 Patient presents emergency department for evaluation. Her blood sugar is 124 here today. Her EKG shows anterior ST changes that are nonspecific in nature, but this is not any different from prior. The patient has no chest pain. She had a normal troponin here. I am awaiting a urinalysis. Her hemoglobin is found to be 7.5. She states that last measurement was a 7. At this point, I attempted to speak to Dr. Sharp. The patient wants to be seen by him again, awaiting his phone call. 06/17/19 20:[address] Sharp. He notifies me that the patient was discharged from his practice. I was notified by nursing the patient refused any further blood draw or IV placement. I had ordered her urinalysis, she was concerned she is to have a urinary tract infection. She states she is incontinent. I explained that I could get a straight cath order, she refused this as well. She states, however, that she told her mother she would leave AGAINST MEDICAL ADVICE, but she still wants to leave. I explained to her that this would have to be AGAINST MEDICAL ADVICE. I do not have a urinalysis to evaluate for for signs of infection. She states that her blood counts have been lower recently, her last hemoglobin was 7. She states she does not believe she needs a blood transfusion. I only have one negative troponin on her at this point. I will go ahead and have her leave AGAINST MEDICAL ADVICE. She states she is following with a plater production here in [place], is waiting for records from [facility] to be transferred up. She is to return to the ED if she changes her mind regarding blood transfusion and or straight catheterization for urinalysis, or certainly if she develops any new or concerning symptoms of any sort. 06/17/19 20:41 I was notified by nursing the patient now does not want to leave, will be compliant with plan of care. I ordered straight cath, transfusion of 1 unit of packed red blood cells, and repeat troponin is to be performed. 06/17/19 22:21 Patient's repeat troponin is undetectable. Her urinalysis fails to reveal any signs of infection. She has a known GI bleed, this is not new. She is being worked up as an outpatient for this, sees a plater production here in [place]. She has a primary care provider. She will be given a unit of packed red blood cells, then discharged with close follow-up. - Vital Signs Vital signs: Temp Pulse Resp BP Pulse Ox 98.4 F 95 14 137/116 H 100 06/17/19 14:48 06/17/19 12:34 06/17/19 22:02 06/17/19 21:01 06/17/19 21:01 - Laboratory Result Diagrams: 06/17/19 18:17 06/17/19 16:45 Laboratory results interpreted by me: 06/17/19 06/17/19 06/17/19 16:45 18:17 21:00 RBC 2.93 L Hgb 7.5 L Hct 24.4 L MCH 25.6 L MCHC 30.7 L RDW 24.5 H Band Neutrophils % 1 L Chloride 109 H Glucose 142 H Alkaline Phosphatase 167 H Urine Urobilinogen 4.0 H Urine Ascorbic Acid 20 H Crossmatch 06/17/19 21:10 RBC Hgb Hct MCH MCHC RDW Band Neutrophils % Chloride Glucose Alkaline Phosphatase Urine Urobilinogen Urine Ascorbic Acid Crossmatch See Detail - Diagnostic Test Radiology reviewed: Reports reviewed Radiology results interpreted by me: 06/17/19 20:08 Chest X-Ray 06/17/19 14:55 IMPRESSION: CARDIAC ENLARGEMENT. VASCULAR CONGESTION. Discharge - Discharge Clinical Impression: GI bleed, Anemia Abdominal pain Qualifiers: Abdominal location: lower abdomen, unspecified Qualified Code(s): R10.30 - Lower abdominal pain, unspecified Condition: Stable Disposition: HOME, SELF-CARE Instructions: Abdominal Pain ([facility]), Anemia ([facility]) Additional Instructions: Your hemoglobin was 7.5 tonight. You were given a unit of blood. Your urine does not reveal any signs of infection. You need to follow-up with your [place] stroenterologist and your primary care provider this week. Return to the emergency department with worsening or new concerning symptoms of any sort. Referrals: JAZMÍN GURROLA PA-C [Primary Care Provider] - Follow up as needed
[2019-06-17] MEDS ORDERED: NORMAL SALINE 250 ML IV PRN (20:40)
[2019-06-17] MEDS ORDERED: ACETAMINOPHEN 325 MG TABLET PO ONE (20:41)
[2019-06-17 21:21] LABS: APPEARANCE,URINE CLEAR; BILIRUBIN,URINE NEGATIVE (NEGATIVE); COLOR,URINE YELLOW; GLUCOSE, URINE NEGATIVE (NEGATIVE); KETONES,URINE NEGATIVE (NEGATIVE); LEUKOCYTE ESTERASE,URINE NEGATIVE (NEGATIVE); NITRITE,URINE NEGATIVE (NEGATIVE); PROTEIN,URINE NEGATIVE (NEGATIVE); URINE SPECIFIC GRAVITY 1.012
[2019-06-17 22:25] VITALS: BP 110/80
--- NOTE | 2019-06-18 00:29 | EKG REPORT ---
SEVERITY:- BORDERLINE ECG - SINUS TACHYCARDIA BORDERLINE T ABNORMALITIES, ANTERIOR LEADS : Confirmed by: Maurice Nieto 18-Jun-2019 00:28:33
== END 2019-06-17 23:15 | disposition home or self-care (01) ==
LOC: ER 12:23
DX: D64.9 Anemia, unspecified (principal); K92.2 Gastrointestinal hemorrhage, unspecified; Z79.899 Other long term (current) drug therapy; R10.30 Lower abdominal pain, unspecified; R09.89 Other specified symptoms and signs involving the circulatory and respiratory systems; I25.10 Atherosclerotic heart disease of native coronary artery without angina pectoris; I11.9 Hypertensive heart disease without heart failure; J44.9 Chronic obstructive pulmonary disease, unspecified; R32 Unspecified urinary incontinence; E11.51 Type 2 diabetes mellitus with diabetic peripheral angiopathy without gangrene; Z95.1 Presence of aortocoronary bypass graft; Z95.5 Presence of coronary angioplasty implant and graft; Z88.1 Allergy status to other antibiotic agents; Z88.6 Allergy status to analgesic agent; Z88.5 Allergy status to narcotic agent; Z88.0 Allergy status to penicillin; Z88.8 Allergy status to other drugs, medicaments and biological substances; Z88.2 Allergy status to sulfonamides; Z87.891 Personal history of nicotine dependence
CPT/HCPCS: 36415; 71046; 80053; 81001; 82550; 84484; 85025; 86850; 86900; 86901; 86920; 93005; 93010; 99285

== ENCOUNTER 2019-06-19 17:49 | Inpatient (IN) | payer MEDICARE, MEDICAID ==
[2019-06-19 19:19] LABS: APPEARANCE,URINE CLEAR; BILIRUBIN,URINE NEGATIVE (NEGATIVE); COLOR,URINE STRAW; GLUCOSE, URINE NEGATIVE (NEGATIVE); KETONES,URINE NEGATIVE (NEGATIVE); LEUKOCYTE ESTERASE,URINE NEGATIVE (NEGATIVE); NITRITE,URINE NEGATIVE (NEGATIVE); PROTEIN,URINE NEGATIVE (NEGATIVE); URINE SPECIFIC GRAVITY 1.004; UROBILINOGEN,URINE NEGATIVE mg/dL (<2.0)
[2019-06-19 19:23] LABS: ABSOLUTE BASOPHILS # (AUTO) 0.1 10^3/uL (0.0-0.2); ABSOLUTE EOSINOPHILS # (AUTO) 0.2 10^3/uL (0.0-0.6); ABSOLUTE LYMPHOCYTES (AUTO) 2.2 10^3/uL (0.5-4.7); ABSOLUTE MONOCYTES (AUTO) 0.5 10^3/uL (0.1-1.4); ABSOLUTE NEUT (AUTO) 4.6 10^3/uL (1.7-8.2); EOSINOPHILS % (AUTO) 2.7 % (0-6); LYMPHOCYTES % (AUTO) 28.8 % (13-45); MEAN CORPUSCULAR HEMOGLOBIN 26.5 pg (27.0-33.4); MEAN CORPUSCULAR HGB CONC 31.6 g/dL (32.0-36.0); MEAN CORPUSCULAR VOLUME 84 fl (80-97); MONOCYTES % (AUTO) 6.3 % (3-13); PLATELET COUNT 308 10^3/uL (150-450); RED BLOOD COUNT 2.62 10^6/uL (3.72-5.28); RED CELL DISTRIBUTION WIDTH 24.3 % (11.5-14.0); SEGMENTED NEUTROPHILS % (AUTO) 61.2 % (42-78); TOTAL CELLS COUNTED % (AUTO) 100 %; WHITE BLOOD COUNT 7.5 10^3/uL (4.0-10.5)
[2019-06-19 19:28] LABS: ALBUMIN 3.8 g/dL (3.5-5.0); ALKALINE PHOSPHATASE 171 U/L (38-126); ANION GAP 9 (5-19); ASPARTATE AMINO TRANSFERASE 17 U/L (14-36); BILIRUBIN,DIRECT 0.2 mg/dL (0.0-0.4); BILIRUBIN,TOTAL 0.3 mg/dL (0.2-1.3); BLOOD UREA NITROGEN 8 mg/dL (7-20); CALCIUM 8.7 mg/dL (8.4-10.2); CARBON DIOXIDE 26 mmol/L (22-30); CHLORIDE 107 mmol/L (98-107); GLUCOSE 90 mg/dL (75-110); POTASSIUM 3.4 mmol/L (3.6-5.0); TOTAL PROTEIN 7.3 g/dL (6.3-8.2)
[2019-06-19 19:48] LABS: ANISOCYTOSIS 3+; HYPOCHROMASIA SLIGHT; OVALOCYTES SLIGHT; PLATELET COMMENT ADEQUATE; TEAR DROP CELLS SLIGHT
[2019-06-19] MEDS ORDERED: NORMAL SALINE 250 ML IV PRN (20:30)
--- NOTE | 2019-06-19 20:37 | ER Document Report ---
ED General - General Chief Complaint: Dizziness Stated Complaint: DIZZINESS Time Seen by Provider: 06/19/19 20:08 Primary Care Provider: JAZMÍN GURROLA PA-C [Primary Care Provider] - Follow up as needed TRAVEL OUTSIDE OF THE [place] IN LAST 30 DAYS: No - HPI Notes: Patient is a 59-year-old female who presents to the emergency department for evaluation. She actually left the department 2 days ago. She has a history of a GI bleed. She had been admitted to the hospital in the past, but left repeatedly AGAINST MEDICAL ADVICE. She was seen here the other day and had a hemoglobin of 7.5. She adamantly said that she did not want blood. She already had an outpatient manufacturing process engineer through which she was following, she states her primary care provider through [facility] was aware of her hemoglobin. She states she had no chest pain or shortness of breath. She d enied being symptomatic, and insisted on leaving. Today, during a well check, the patient was found to be extremely dizzy, had difficulty walking to the door. She has continued dark stools, although she states he has not had a bowel movement in several days. Her hemoglobin is found to be 7. I did review her bleeding scan, performed over a month ago. It had reported that she had some left-sided colonic bleeding and a surgical consult was recommended. The patient had left AGAINST MEDICAL ADVICE, and was consequently dismissed from Dr. Sharp's practice. The patient states today she is had no chest pain, but just feels very weak and dizzy. - Related Data Allergies/Adverse Reactions: cephalexin monohydrate [From Keflex] Allergy (Unknown, Verified 05/14/19 11:09) codeine [Codeine] Allergy (Unknown, Verified 05/14/19 11:09) dicyclomine HCl [From Bentyl] Allergy (Unknown, Verified 05/14/19 11:09) hydrocodone bitartrate [From Vicodin] Allergy (Unknown, Verified 05/14/19 11:09) meloxicam [From Mobic] Allergy (Unknown, Verified 05/14/19 11:09) meperidine HCl [From Demerol (PF)] Allergy (Unknown, Verified 05/14/19 11:09) morphine [Morphine] Allergy (Unknown, Verified 05/14/19 11:09) naproxen sodium [From Naprelan CR Dosepak] Allergy (Unknown, Verified 05/14/19 11:09) nitrofurantoin [From Macrobid] Allergy (Unknown, Verified 05/14/19 11:09) pantoprazole sodium [From Protonix] Allergy (Unknown, Verified 05/14/19 11:09) Penicillins Allergy (Unknown, Verified 04/29/19 15:45) Sulfa (Sulfonamide Antibiotics) Allergy (Unknown, Verified 04/29/19 15:45) aspirin Allergy (Verified 04/29/19 15:45) lamotrigine [From Lamictal] Allergy (Verified 04/29/19 15:45) rash Past Medical History - General Information source: Patient, PENDING SALE TO [facility] Records - Social History Smoking Status: Never Smoker Family History: Reviewed & Not Pertinent, Hypertension Patient has suicidal ideation: No Patient has homicidal ideation: No - Past Medical History Cardiac Medical History: Reports: Hx Congestive Heart Failure, Hx Coronary Artery Disease, Hx Heart Attack, Hx Hypercholesterolemia, Hx Hypertension, Hx Peripheral Vascular Disease Denies: Hx Heart Murmur Pulmonary Medical History: Reports: Hx Asthma, Hx COPD, Hx Sleep Apnea Denies: Hx Bronchitis, Hx Pneumonia, Hx Respiratory Failure, Hx Tuberculosis Neurological Medical History: Reports: Hx Migraine. Denies: Hx Cerebrovascular Accident, Hx Seizures, Hx Parkinson's Disease Endocrine Medical History: Reports: Hx Diabetes Mellitus Type 2, Hx Hyperthyroidism, Hx Hypothyroidism Renal/ Medical History: Reports: Hx Renal Insufficiency. Denies: Hx End Stage Renal Disease, Hx Kidney Stones, Hx Peritoneal Dialysis Malignancy Medical History: GI Medical History: Reports: Hx Gastroesophageal Reflux Disease. Denies: Hx Cirrhosis, Hx Pancreatitis, Hx Ulcer Musculoskeletal Medical History: Reports Hx Arthritis, Reports Hx Fibromyalgia, Denies Hx Multiple Sclerosis, Reports Hx Muscle Weakness, Denies Hx Systemic Lupus Erythematosus Psychiatric Medical History: Reports: Hx Depression, Hx Post Traumatic Stress Disorder Denies: Hx Bipolar Disorder, Hx Schizophrenia Traumatic Medical History: Infectious Medical History: Past Surgical History: Reports: Hx Cardiac Catheterization, Hx Section - x2, Hx Coronary Artery Bypass Graft, Hx Coronary Stent - x2, Hx Hysterectomy, Hx Orthopedic Surgery, Hx Tubal Ligation, Other - multiple colonoscopies for lower GI bleed - Immunizations Hx Diphtheria, Pertussis, Tetanus Vaccination: Yes Hx Pneumococcal Vaccination: 04/02/13 Review of Systems - Review of Systems Constitutional: See HPI EENT: No symptoms reported Cardiovascular: No symptoms reported Respiratory: No symptoms reported Gastrointestinal: See HPI Genitourinary: No symptoms reported Musculoskeletal: No symptoms reported Skin: No symptoms reported Neurological/Psychological: No symptoms reported Physical Exam - Vital signs Vitals: Temp Pulse Resp BP Pulse Ox 98.6 F 99 16 92/58 L 100 06/19/19 18:26 12 18:26 06/19/19 18:26 06/19/19 18:26 06/19/19 18:26 - Notes Notes: Vital signs reviewed, please refer to chart. Head is normocephalic, atraumatic. Pupils equal round, reactive to light. Neck is supple without meningismus. Heart is regular rate and rhythm. Lungs are clear to auscultation bilaterally. Abdomen is obese, soft, nontender, normoactive bowel sounds throughout. Extremities without cyanosis, clubbing. Posterior calves are nontender. Peripheral pulses are equal. Skin is warm and dry. Patient is awake, alert, neurological exam is nonfocal. Course - Re-evaluation Re-evalutation: 06/19/19 20:38 Patient presents to the emergency department for evaluation. She is extremely dizzy. She has a known anemia. Patient is left AGAINST MEDICAL ADVICE multiple times. I asked her if she was willing to accept blood and admission to the hospital today. She did agree to this. Order was placed for transfusion of 2 units of packed red blood cells. Patient's blood pressure is borderline. Will place her on the monitor, will contact medicine shortly for admission. 06/19/19 21:19 Patient typed and crossed for 2 units of packed red blood cells. She does agree to stay. I spoke with medicine in regards to this patient. Notes were reviewed. He asked that we consult surgery. Dr. Humphrey is the on-call surgeon, he is currently in the OR. We will attempt to speak to him at 10 PM, when I was told he will likely be free from the OR. 06/19/19 21:36 Dr. Humphrey contacted the ER, was notified about consultation. Order placed. 06/20/19 05:07 Dr. Humphrey came and evaluated the patient shortly after consult was placed. He agrees the patient needs evaluation, recommends repeat EGD and colonoscopy. I notified Dr. Amador of this. He states he has concerns about this patient's compliance, believes that there is a possibility she will sign out AGAINST MEDICAL ADVICE. I did wait till after the patient received both units of packed red blood cells. She tolerated this well, states she still plans to follow advice of the surgeon and physicians here in the hospital. I did notify Dr. Amador of this, and he will accept the patient. - Vital Signs Vital signs: Temp Pulse Resp BP Pulse Ox 98.1 F 85 17 139/85 H 100 06/20/19 05:03 06/20/19 05:03 06/20/19 05:03 06/20/19 05:03 06/20/19 05:03 - Laboratory Result Diagrams: 06/19/19 18:55 06/19/19 18:55 Laboratory results interpreted by me: 06/19/19 06/19/19 06/19/19 18:55 18:55 18:55 RBC 2.62 L Hgb 7.0 L Hct 22.0 L MCH 26.5 L MCHC 31.6 L RDW 24.3 H Potassium 3.4 L Est GFR ( Amer) 58 L Est GFR (MDRD) Non-Af 48 L Alkaline Phosphatase 171 H Crossmatch See Detail Discharge - Discharge Clinical Impression: GI bleed Qualifiers: GI bleed type/associated pathology: unspecified gastrointestinal hemorrhage type Qualified Code(s): K92.2 - Gastrointestinal hemorrhage, unspecified Anemia Qualifiers: Anemia type: unspecified type Qualified Code(s): D64.9 - Anemia, unspecified Condition: Stable Disposition: ADMITTED INPATIENT Admitting Provider: Perry (Hospitalist) Unit Admitted: Medical Floor Referrals: JAZMÍN GURROLA PA-C [Primary Care Provider] - Follow up as needed
[2019-06-19] MEDS ORDERED: POLYETHYLENE GLYCOL 3350 POWDER 17 GM/1 PACKET PO ONE (23:30)
[2019-06-19] MEDS ORDERED: BISACODYL 5 MG TABEC PO ONE (23:30)
[2019-06-20] MEDS ORDERED: POLYETHYLENE GLYCOL 3350 POWDER 17 GM/1 PACKET PO ONE ×2 (02:30→09:00)
[2019-06-20] MEDS ORDERED: DEXTROSE 40% GEL 15 GM TUBE PO PRN ×2 (05:27)
[2019-06-20] MEDS ORDERED: GLUCAGON,HUMAN RECOMB 1 MG INJ IM PRN (05:27)
[2019-06-20] MEDS ORDERED: IPRATROPIUM/ALBUTEROL 0.5-2.5 MG/3 ML AMPUL NEB PRN (05:27)
[2019-06-20] MEDS ORDERED: DEXTROSE 50%-WATER 25 GM/50 ML DISP.SYRIN IV PRN ×2 (05:27)
[2019-06-20] MEDS ORDERED: NORMAL SALINE 1000 ML 1,000 ML IV ONE (05:29)
[2019-06-20] MEDS: HEPARIN SOD (PORCINE) 5,000 UNIT/ML 1 ML VIAL SUBCUT SCH ×3 (05:56→21:49)
[2019-06-20] MEDS: POTASSI CL 20 MEQ/50 ML RIDER 20 MEQ/50 ML RTUPB IV SCH ×2 (05:57→14:41)
[2019-06-20] MEDS ORDERED: IRON SUCROSE COMPLEX INJ/PF 100 MG/5 ML SDV IV ONE ×2 (05:59→06:00)
[2019-06-20 06:03] LABS: ABSOLUTE RETICS # 0.139 10^6/uL (0.028-0.122); RETICULOCYTE COUNT (AUTO) 5.32 % (0.66-2.85)
[2019-06-20] MEDS: INSULIN LISPRO 100 UNIT/ML 3 ML VIAL SUBCUT SCH ×3 (06:03→18:22)
--- NOTE | 2019-06-20 06:06 | PDOC H&P ---
History of Present Illness Admission Date/PCP: 06/20/19 05:15 JAZMÍN GURROLA PA-C Patient complains of: Fatigue, dizziness with exertion History of Present Illness: SANTOS NAVARRO is a 59 year old female with a past medical history of congestive heart failure, coronary artery disease, hypertension, COPD, hypothyroidism diabetes, hypertension, morbid obesity, bipolar and recent GI bleed with subsequent anemia. Bleeding scan obtained April 30, 2019 showed active mid abdominal left-sided bleed. Surgery was recommended however the patient left AGAINST MEDICAL ADVICE. She returns with symptoms after a ROB D wellness check finds her dizzy and fatigued. In the emergency department she is found to have a hemoglobin of only 7. She is transfused 2 units of packed red blood cells, surgery is consulted recommending endoscopy for which the patient agrees to stay. She is referred to the hospitalist for admission. She denies recent change in medication regiment she is otherwise felt well. Denying nausea vomiting or black stools she does admit constipation. Past Medical History Cardiac Medical History: Reports: Congestive Heart Failure, Coronary Artery Disease, Myocardial Infarction, Hyperlipidema, Hypertension, Peripheral Vascular Disease Denies: Heart Murmur Pulmonary Medical History: Reports: Asthma, Chronic Obstructive Pulmonary Disease (COPD), Sleep Apnea Denies: Bronchitis, Pneumonia, Respiratory Failure, Tuberculosis Neurological Medical History: Reports: Migraine Denies: Seizures Endocrine Medical History: Reports: Diabetes Mellitus Type 2, Hyperthyroidism, Hypothyroidism Renal/ Medical History: Denies: End Stage Renal Disease Malignancy Medical History: GI Medical History: Reports: Gastroesophageal Reflux Disease Denies: Cirrhosis Musculoskeltal Medical History: Reports: Arthritis, Fibromyalgia Psychiatric Medical History: Reports: Depression, Post Traumatic Stress Disorder Denies: Bipolar Disorder Hematology: Reports: Anemia, Bleeding Tendencies Denies: Hemophilia, Sickle Cell Disease Infectious Medical History: Past Surgical History Past Surgical History: Reports: Cardiac Catheterization, Section - x2, Coronary Artery Bypass Graft, Coronary Stent - x2, Hysterectomy, Orthopedic Surgery, Tubal Ligation, Other - multiple colonoscopies for lower GI bleed Denies: Amputation Social History Information Source: Patient Lives with: Alone Smoking Status: Never Smoker Frequency of Alcohol Use: None Hx Recreational Drug Use: No Drugs: None Hx Prescription Drug Abuse: No - Advance Directive Resuscitation Status: Full Code Family History Family History: Hypertension Parental Family History Reviewed: Yes Children Family History Reviewed: Yes Sibling(s) Family History Reviewed.: Yes Medication/Allergy Home Medications: Albuterol Sulfate [Proair HFA Inhalation Aerosol 8.5 gm MDI] 2 puff IH Q4HP PRN 12/07/18 Amitriptyline HCl [Elavil 150 mg Tablet] 150 mg PO QHS 12/07/18 Atorvastatin Calcium [Lipitor 40 mg Tablet] 40 mg PO QHS 12/07/18 Benztropine Mesylate [Cogentin 1 mg Tablet] 1 mg PO Q12 12/07/18 Budesonide/Formoterol Fumarate [Symbicort HFA 160-4.5 mcg Inhaler 6 gm] 2 puff IH Q12 12/07/18 Bupropion HCl [Wellbutrin Sr 150 mg Tablet] 150 mg PO QPM 12/07/18 Doxepin HCl [Sinequan 10 mg Capsule] 20 mg PO QHS 12/07/18 Duloxetine HCl [Cymbalta] 60 mg PO Q12 12/07/18 Furosemide [Lasix 40 mg Tablet] 40 mg PO BID 12/07/18 Gabapentin [Neurontin 300 mg Capsule] 300 mg PO Q12 12/07/18 Insulin Glargine,Hum.rec.anlog [Lantus Insulin 100 Unit/1 ml 10 ml] 55 units SQ QAM 12/07/18 Insulin Glargine,Hum.rec.anlog [Lantus Insulin 100 Unit/1 ml 10 ml] 65 units SQ QPM 12/07/18 Insulin Lispro [Humalog Kwikpen U-100] 0 units SQ .PERSLIDINGSCALE 12/07/18 Irbesartan [Avapro] 150 mg PO QAM 12/07/18 Levothyroxine Sodium 50 mcg PO Q6AM 12/07/18 Nitroglycerin [Nitro-Dur 5 mg (0.2 mg/Hr) Transdermal Patch] 1 patch TD DAILY 12/07/18 Omeprazole 40 mg PO Q12 12/07/18 Oxycodone HCl/Acetaminophen [Percocet 10-325 mg Tablet] 1 tab PO Q8HP PRN 12/07/18 Saxagliptin HCl [Onglyza] 2.5 mg PO QAM 12/07/18 Topiramate [Topamax] 300 mg PO QHS 12/07/18 Meclizine HCl [Antivert 25 mg Tablet] 25 mg PO TIDP PRN 04/30/19 Triamcinolone Acetonide 1 applic TP DAILY MDD face 04/30/19 Triamcinolone Acetonide [Aristocort 0.1% Ointment 15 gm] 1 applic TP BID MDD legs 04/30/19 Allergies/Adverse Reactions: cephalexin monohydrate [From Keflex] Allergy (Unknown, Verified 05/14/19 11:09) codeine [Codeine] Allergy (Unknown, Verified 05/14/19 11:09) dicyclomine HCl [From Bentyl] Allergy (Unknown, Verified 05/14/19 11:09) hydrocodone bitartrate [From Vicodin] Allergy (Unknown, Verified 05/14/19 11:09) meloxicam [From Mobic] Allergy (Unknown, Verified 05/14/19 11:09) meperidine HCl [From Demerol (PF)] Allergy (Unknown, Verified 05/14/19 11:09) morphine [Morphine] Allergy (Unknown, Verified 05/14/19 11:09) naproxen sodium [From Naprelan CR Dosepak] Allergy (Unknown, Verified 05/14/19 11:09) nitrofurantoin [From Macrobid] Allergy (Unknown, Verified 05/14/19 11:09) pantoprazole sodium [From Protonix] Allergy (Unknown, Verified 05/14/19 11:09) Penicillins Allergy (Unknown, Verified 04/29/19 15:45) Sulfa (Sulfonamide Antibiotics) Allergy (Unknown, Verified 04/29/19 15:45) aspirin Allergy (Verified 04/29/19 15:45) lamotrigine [From Lamictal] Allergy (Verified 04/29/19 15:45) rash Review of Systems Constitutional: PRESENT: as per HPI, fatigue, weakness. ABSENT: chills, fever(s), headache(s), weight gain, weight loss Eyes: ABSENT: visual disturbances Ears: ABSENT: hearing changes Cardiovascular: ABSENT: chest pain, dyspnea on exertion, edema, orthropnea, palpitations Respiratory: ABSENT: cough, hemoptysis Gastrointestinal: ABSENT: abdominal pain, constipation, diarrhea, hematemesis, h ematochezia, nausea, vomiting Genitourinary: ABSENT: dysuria, hematuria Musculoskeletal: ABSENT: joint swelling Integumentary: ABSENT: rash, wounds Neurological: ABSENT: abnormal gait, abnormal speech, confusion, dizziness, focal weakness, syncope Psychiatric: ABSENT: anxiety, depression, homidical ideation, suicidal ideation Endocrine: ABSENT: cold intolerance, heat intolerance, polydipsia, polyuria Hematologic/Lymphatic: ABSENT: easy bleeding, easy bruising Physical Exam Vital Signs: Temp Pulse Resp BP Pulse Ox 98.1 F 85 17 139/85 H 100 06/20/19 05:03 06/20/19 05:03 06/20/19 05:03 06/20/19 05:03 06/20/19 05:03 Intake & Output 06/18/19 06/19/19 06/20/19 11:59 11:59 11:59 Intake Total 850 Balance 850 Weight 113.398 kg General appearance: PRESENT: no acute distress, cooperative, morbidly obese, well-developed, well-nourished Head exam: PRESENT: atraumatic, normocephalic Eye exam: PRESENT: conjunctiva pink, EOMI, PERRLA. ABSENT: scleral icterus Ear exam: PRESENT: normal external ear exam Mouth exam: PRESENT: moist, tongue midline Neck exam: ABSENT: carotid bruit, JVD, lymphadenopathy, thyromegaly Respiratory exam: PRESENT: clear to auscultation christine. ABSENT: rales, rhonchi, wheezes Cardiovascular exam: PRESENT: RRR. ABSENT: diastolic murmur, rubs, systolic murmur Pulses: PRESENT: normal dorsalis pedis pul Vascular exam: PRESENT: normal capillary refill GI/Abdominal exam: PRESENT: normal bowel sounds, soft. ABSENT: distended, guarding, mass, organolmegaly, rebound, tenderness Rectal exam: PRESENT: deferred Extremities exam: PRESENT: full ROM, +2 edema. ABSENT: calf tenderness, clubbing, pedal edema Neurological exam: PRESENT: alert, awake, oriented to person, oriented to place, oriented to time, oriented to situation, CN II-XII grossly intact. ABSENT: motor sensory deficit Psychiatric exam: PRESENT: appropriate affect, normal mood. ABSENT: homicidal ideation, suicidal ideation Skin exam: PRESENT: dry, intact, warm. ABSENT: cyanosis, rash Results Laboratory Results: 06/19/19 18:55 06/19/19 18:55 06/19/19 06/19/19 06/19/19 18:55 18:55 18:55 WBC 7.5 RBC 2.62 L Hgb 7.0 L Hct 22.0 L MCV 84 MCH 26.5 L MCHC 31.6 L RDW 24.3 H Plt Count 308 Seg Neutrophils % 61.2 Sodium 141.7 Potassium 3.4 L Chloride 107 Carbon Dioxide 26 Anion Gap 9 BUN 8 Creatinine 1.15 Est GFR ( Amer) 58 L Glucose 90 Calcium 8.7 Total Bilirubin 0.3 AST 17 Alkaline Phosphatase 171 H Total Protein 7.3 Albumin 3.8 Urine Color STRAW Urine Appearance CLEAR Urine pH 7.0 Ur Specific [place] 1.004 Urine Protein NEGATIVE Urine Glucose (UA) NEGATIVE Urine Ketones NEGATIVE Urine Blood NEGATIVE Urine Nitrite NEGATIVE Ur Leukocyte Esterase NEGATIVE Urine WBC (Auto) 0 Blood Type Antibody Screen 06/19/19 18:55 WBC RBC Hgb Hct MCV MCH MCHC RDW Plt Count Seg Neutrophils % Sodium Potassium Chloride Carbon Dioxide Anion Gap BUN Creatinine Est GFR ( Amer) Glucose Calcium Total Bilirubin AST Alkaline Phosphatase Total Protein Albumin Urine Color Urine Appearance Urine pH Ur Specific [place] Urine Protein Urine Glucose (UA) Urine Ketones Urine Blood Urine Nitrite Ur Leukocyte Esterase Urine WBC (Auto) Blood Type O POSITIVE Antibody Screen NEGATIVE Assessment and Plan - Diagnosis (1) GI bleed Is this a current diagnosis for this admission?: Yes Plan: Unclear source, follow-up surgical consultation for endoscopy. (2) Anemia Is this a current diagnosis for this admission?: Yes Plan: Secondary to #1, patient is received 2 units of packed red blood cells, follow- up posttransfusion CBC (3) Chronic schizoaffective disorder Is this a current diagnosis for this admission?: Yes Plan: Supportive care follow-up medication reconciliation (4) Insulin dependent diabetes mellitus Is this a current diagnosis for this admission?: Yes Plan: Humalog sliding scale every 6 hours while n.p.o. - Time Time Spent with patient: 25-34 minutes - Inpatient Certification Medical Necessity: Significant Comorbidiites Make Outpatient Treatment Too Risky, Need Close Monitoring Due to Risk of Patient Decompensation
[2019-06-20 06:07] LABS: IRON(TIBC) 75.4 ug/dL (37-170)
[2019-06-20] MEDS ORDERED: PROMETHAZINE HCL INJ 25 MG/1 ML VIAL IV ONE (06:21)
--- NOTE | 2019-06-20 06:40 | PDOC CONSULTATION ---
Consultation Consult Date: 06/20/19 Provider Consulted: SURGICAL SURGICALIST MD Consult reason:: gi bleeding History of Present Illness Admission Date/PCP: JAZMÍN GURROLA PA-C History of Present Illness: SANTOS NAVARRO is a 59 year old female seen in consultation at the request of the hospitalist service. This patient has a long history of chronic GI bleeding. 18 months ago, she had an AVM cauterized in the stomach. And April 2019 the patient had a bleeding scan, showing active bleeding in what appears to be the colon. Patient presents with weakness, fatigue, and anemia. She does report melanotic stool. The patient is an incredibly poor historian. Most of her history is gleaned from the medical record. She does report fatigue and weakness, but she denies chest pain, shortness of breath, headache, dizziness, blurry vision, headache, nausea, vomiting, abdominal pain. The patient has multiple medical problems including heart disease, COPD, morbid obesity, and diabetes. Past Medical History Cardiac Medical History: Reports: Congestive Heart Failure, Coronary Artery Disease, Myocardial Infarction, Hyperlipidema, Hypertension, Peripheral Vascular Disease Denies: Heart Murmur Pulmonary Medical History: Reports: Asthma, Chronic Obstructive Pulmonary Disease (COPD), Sleep Apnea Denies: Bronchitis, Pneumonia, Respiratory Failure, Tuberculosis Neurological Medical History: Reports: Migraine Denies: Seizures Endocrine Medical History: Reports: Diabetes Mellitus Type 2, Hyperthyroidism, Hypothyroidism Renal/ Medical History: Denies: End Stage Renal Disease Malignancy Medical History: GI Medical History: Reports: Gastroesophageal Reflux Disease Denies: Cirrhosis Musculoskeltal Medical History: Reports: Arthritis, Fibromyalgia Psychiatric Medical History: Reports: Depression, Post Traumatic Stress Disorder Denies: Bipolar Disorder Hematology: Reports: Anemia, Bleeding Tendencies Denies: Hemophilia, Sickle Cell Disease Infectious Medical History: Past Surgical History Past Surgical History: Reports: Cardiac Catheterization, Section - x2, Coronary Artery Bypass Graft, Coronary Stent - x2, Hysterectomy, Orthopedic Surgery, Tubal Ligation, Other - multiple colonoscopies for lower GI bleed Denies: Amputation Social History Smoking Status: Never Smoker Frequency of Alcohol Use: None Hx Recreational Drug Use: No Drugs: None Hx Prescription Drug Abuse: No Family History Family History: Reviewed & Not Pertinent, Hypertension Parental Family History Reviewed: Yes Children Family History Reviewed: Yes Sibling(s) Family History Reviewed.: Yes Medication/Allergy Home Medications: Albuterol Sulfate [Proair HFA Inhalation Aerosol 8.5 gm MDI] 2 puff IH Q4HP PRN 12/07/18 Amitriptyline HCl [Elavil 150 mg Tablet] 150 mg PO QHS 12/07/18 Atorvastatin Calcium [Lipitor 40 mg Tablet] 40 mg PO QHS 12/07/18 Benztropine Mesylate [Cogentin 1 mg Tablet] 1 mg PO Q12 12/07/18 Budesonide/Formoterol Fumarate [Symbicort HFA 160-4.5 mcg Inhaler 6 gm] 2 puff IH Q12 12/07/18 Bupropion HCl [Wellbutrin Sr 150 mg Tablet] 150 mg PO QPM 12/07/18 Doxepin HCl [Sinequan 10 mg Capsule] 20 mg PO QHS 12/07/18 Duloxetine HCl [Cymbalta] 60 mg PO Q12 12/07/18 Furosemide [Lasix 40 mg Tablet] 40 mg PO BID 12/07/18 Gabapentin [Neurontin 300 mg Capsule] 300 mg PO Q12 12/07/18 Insulin Glargine,Hum.rec.anlog [Lantus Insulin 100 Unit/1 ml 10 ml] 55 units SQ QAM 12/07/18 Insulin Glargine,Hum.rec.anlog [Lantus Insulin 100 Unit/1 ml 10 ml] 65 units SQ QPM 12/07/18 Insulin Lispro [Humalog Kwikpen U-100] 0 units SQ .PERSLIDINGSCALE 12/07/18 Irbesartan [Avapro] 150 mg PO QAM 12/07/18 Levothyroxine Sodium 50 mcg PO Q6AM 12/07/18 Nitroglycerin [Nitro-Dur 5 mg (0.2 mg/Hr) Transdermal Patch] 1 patch TD DAILY 12/07/18 Omeprazole 40 mg PO Q12 12/07/18 Oxycodone HCl/Acetaminophen [Percocet 10-325 mg Tablet] 1 tab PO Q8HP PRN 12/07/18 Saxagliptin HCl [Onglyza] 2.5 mg PO QAM 12/07/18 Topiramate [Topamax] 300 mg PO QHS 12/07/18 Meclizine HCl [Antivert 25 mg Tablet] 25 mg PO TIDP PRN 04/30/19 Triamcinolone Acetonide 1 applic TP DAILY MDD face 04/30/19 Triamcinolone Acetonide [Aristocort 0.1% Ointment 15 gm] 1 applic TP BID MDD legs 04/30/19 Allergies/Adverse Reactions: cephalexin monohydrate [From Keflex] Allergy (Unknown, Verified 05/14/19 11:09) codeine [Codeine] Allergy (Unknown, Verified 05/14/19 11:09) dicyclomine HCl [From Bentyl] Allergy (Unknown, Verified 05/14/19 11:09) hydrocodone bitartrate [From Vicodin] Allergy (Unknown, Verified 05/14/19 11:09) meloxicam [From Mobic] Allergy (Unknown, Verified 05/14/19 11:09) meperidine HCl [From Demerol (PF)] Allergy (Unknown, Verified 05/14/19 11:09) morphine [Morphine] Allergy (Unknown, Verified 05/14/19 11:09) naproxen sodium [From Naprelan CR Dosepak] Allergy (Unknown, Verified 05/14/19 11:09) nitrofurantoin [From Macrobid] Allergy (Unknown, Verified 05/14/19 11:09) pantoprazole sodium [From Protonix] Allergy (Unknown, Verified 05/14/19 11:09) Penicillins Allergy (Unknown, Verified 04/29/19 15:45) Sulfa (Sulfonamide Antibiotics) Allergy (Unknown, Verified 04/29/19 15:45) aspirin Allergy (Verified 04/29/19 15:45) lamotrigine [From Lamictal] Allergy (Verified 04/29/19 15:45) rash Review of Systems Constitutional: PRESENT: fatigue. ABSENT: anorexia, chills, fever(s) Eyes: ABSENT: visual disturbances Ears: ABSENT: hearing changes Nose, Mouth, and Throat: ABSENT: mouth pain, sore throat Cardiovascular: ABSENT: chest pain Respiratory: ABSENT: cough, dyspnea Gastrointestinal: PRESENT: melena. ABSENT: abdominal pain, hematemesis, nausea, vomiting Genitourinary: ABSENT: dysuria Musculoskeletal: ABSENT: back pain Integumentary: ABSENT: pruritus, rash Neurological: ABSENT: confusion, convulsions, dizziness Psychiatric: PRESENT: anxiety, depression Endocrine: ABSENT: cold intolerance, heat intolerance Physical Exam Vital Signs: Temp Pulse Resp BP Pulse Ox 98.1 F 85 14 115/68 100 12/18/19 23:22 06/19/19 23:22 06/19/19 23:22 06/19/19 23:22 06/19/19 23:22 Intake & Output 06/18/19 06/19/19 06/20/19 06:59 06:59 06:59 Intake Total 0 Balance 0 Weight 113.398 kg General appearance: PRESENT: no acute distress, morbidly obese Head exam: PRESENT: atraumatic, normocephalic Eye exam: PRESENT: EOMI, PERRLA. ABSENT: scleral icterus Mouth exam: PRESENT: moist, neck supple Neck exam: ABSENT: meningismus, tenderness, thyromegaly, tracheal deviation, tracheostomy Respiratory exam: PRESENT: unlabored. ABSENT: chest wall tenderness, wheezes Cardiovascular exam: ABSENT: tachycardia Pulses: PRESENT: normal radial pulses Vascular exam: PRESENT: normal capillary refill. ABSENT: pallor GI/Abdominal exam: PRESENT: soft. ABSENT: distended, firm, guarding, rigid, tenderness Rectal exam: PRESENT: deferred Extremities exam: ABSENT: clubbing Musculoskeletal exam: ABSENT: deformity Neurological exam: PRESENT: alert, awake, oriented to person, oriented to place, oriented to time, CN II-XII grossly intact Psychiatric exam: PRESENT: agitated, anxious Focused psych exam: ABSENT: delusional Skin exam: ABSENT: cyanosis, erythema, jaundice Results Laboratory Results: 06/19/19 18:55 06/19/19 18:55 06/19/19 06/19/19 06/19/19 18:55 18:55 18:55 WBC 7.5 RBC 2.62 L Hgb 7.0 L Hct 22.0 L MCV 84 MCH 26.5 L MCHC 31.6 L RDW 24.3 H Plt Count 308 Seg Neutrophils % 61.2 Sodium 141.7 Potassium 3.4 L Chloride 107 Carbon Dioxide 26 Anion Gap 9 BUN 8 Creatinine 1.15 Est GFR ( Amer) 58 L Glucose 90 Calcium 8.7 Total Bilirubin 0.3 AST 17 Alkaline Phosphatase 171 H Total Protein 7.3 Albumin 3.8 Urine Color STRAW Urine Appearance CLEAR Urine pH 7.0 Ur Specific [place] 1.004 Urine Protein NEGATIVE Urine Glucose (UA) NEGATIVE Urine Ketones NEGATIVE Urine Blood NEGATIVE Urine Nitrite NEGATIVE Ur Leukocyte Esterase NEGATIVE Urine WBC (Auto) 0 Blood Type Antibody Screen 06/19/19 18:55 WBC RBC Hgb Hct MCV MCH MCHC RDW Plt Count Seg Neutrophils % Sodium Potassium Chloride Carbon Dioxide Anion Gap BUN Creatinine Est GFR ( Amer) Glucose Calcium Total Bilirubin AST Alkaline Phosphatase Total Protein Albumin Urine Color Urine Appearance Urine pH Ur Specific [place] Urine Protein Urine Glucose (UA) Urine Ketones Urine Blood Urine Nitrite Ur Leukocyte Esterase Urine WBC (Auto) Blood Type O POSITIVE Antibody Screen NEGATIVE Assessment & Plan - Diagnosis (1) GI bleed Qualifiers: GI bleed type/associated pathology: unspecified gastrointestinal hemorrhage type Qualified Code(s): K92.2 - Gastrointestinal hemorrhage, unspecified Is this a current diagnosis for this admission?: Yes - Plan Summary Plan Summary: This is a 59-year-old female with a history of GI bleeding. 18 months ago she had cauterization of a gastric AVM. In April 2019 she had a bleeding scan showing active bleeding, but left the hospital AGAINST MEDICAL ADVICE. At that time she refused EGD and colonoscopy. The patient was seen in the emergency department with anemia, fatigue, and malaise. The patient is now ready to undergo investigation into her GI bleeding. I have discussed EGD and colonoscopy with her. She has agreed. Risks/benefits discussed, informed consent obtained, and all questions answered.
[2019-06-20 07:19] LABS: FOLATE > 20.00 ng/mL (>2.76)
--- NOTE | 2019-06-20 07:35 | Progress Note ---
Provider Note Provider Note: The patient reports that she drank "all of her prep" but has not had any bowel movements. I will repeat her MiraLAX prep today. Plan for EGD and colonoscopy possibly tomorrow.
--- NOTE | 2019-06-20 13:34 | PDOC PROGRESS REPORT ---
Subjective Progress Note for:: 06/20/19 Subjective:: The patient is a 59-year-old female with a past medical history of CHF, CAD, hypertension, COPD, hypothyroidism, diabetes, hypertension, morbid obesity, bipolar and recent GI bleed with subsequent anemia who was admitted 06/20/2019 for and GI bleeding with symptomatic anemia. Patient was seen on morning rounds while still in the emergency department. She is found sitting up to the bedside commode, comfortably, on room air. She reports continued dizziness but otherwise denies all complaints. She specifically denies chest pain, palpitations, dyspnea, orthopnea, abdominal pain, nausea vomiting and diarrhea. She has had several weeks of melena. She has no other questions or concerns at this time. No concerns per nursing. Reason For Visit: GIB ANEMIA, DM, HTN Physical Exam Vital Signs: Temp Pulse Resp BP Pulse Ox 97.3 F 83 17 117/66 100 06/20/19 06:09 06/20/19 06:09 06/20/19 06:09 06/20/19 06:09 06/20/19 06:09 Intake & Output 06/19/19 06/20/19 06/21/19 06:59 06:59 06:59 Intake Total 850 Balance 850 Weight 113.398 kg General appearance: PRESENT: no acute distress, cooperative, morbidly obese, well-developed, well-nourished Head exam: PRESENT: atraumatic, normocephalic Eye exam: PRESENT: conjunctiva pink, EOMI, PERRLA. ABSENT: scleral icterus Ear exam: PRESENT: normal external ear exam Mouth exam: PRESENT: moist, tongue midline Respiratory exam: PRESENT: clear to auscultation christine, symmetrical, unlabored. ABSENT: rales, rhonchi, wheezes Cardiovascular exam: PRESENT: RRR, +S1, +S2. ABSENT: diastolic murmur, rubs, systolic murmur Vascular exam: PRESENT: normal capillary refill GI/Abdominal exam: PRESENT: normal bowel sounds, soft. ABSENT: distended, guarding, mass, organolmegaly, rebound, tenderness Extremities exam: PRESENT: full ROM. ABSENT: calf tenderness, clubbing, pedal edema Neurological exam: PRESENT: alert, awake, oriented to person, oriented to place, oriented to time, oriented to situation, CN II-XII grossly intact. ABSENT: motor sensory deficit Psychiatric exam: PRESENT: normal mood, unusual affect. ABSENT: homicidal ideation, suicidal ideation Skin exam: PRESENT: dry, intact, warm. ABSENT: cyanosis, rash Results Laboratory Results: 06/19/19 18:55 06/19/19 18:55 06/19/19 06/19/19 06/19/19 18:55 18:55 18:55 WBC 7.5 RBC 2.62 L Hgb 7.0 L Hct 22.0 L MCV 84 MCH 26.5 L MCHC 31.6 L RDW 24.3 H Plt Count 308 Seg Neutrophils % 61.2 Retic Count (auto) Sodium 141.7 Potassium 3.4 L Chloride 107 Carbon Dioxide 26 Anion Gap 9 BUN 8 Creatinine 1.15 Est GFR ( Amer) 58 L Glucose 90 Calcium 8.7 Magnesium Iron TIBC % Saturation Ferritin Total Bilirubin 0.3 AST 17 Alkaline Phosphatase 171 H Total Protein 7.3 Albumin 3.8 Vitamin B12 Folate Urine Color STRAW Urine Appearance CLEAR Urine pH 7.0 Ur Specific [place] 1.004 Urine Protein NEGATIVE Urine Glucose (UA) NEGATIVE Urine Ketones NEGATIVE Urine Blood NEGATIVE Urine Nitrite NEGATIVE Ur Leukocyte Esterase NEGATIVE Urine WBC (Auto) 0 Blood Type Antibody Screen 06/19/19 06/19/19 06/19/19 18:55 18:55 18:55 WBC RBC Hgb Hct MCV MCH MCHC RDW Plt Count Seg Neutrophils % Retic Count (auto) 5.32 H Sodium Potassium Chloride Carbon Dioxide Anion Gap BUN Creatinine Est GFR ( Amer) Glucose Calcium Magnesium Iron 75.4 TIBC 274 % Saturation 28 Ferritin 192.00 Total Bilirubin AST Alkaline Phosphatase Total Protein Albumin Vitamin B12 230.0 L Folate > 20.00 Urine Color Urine Appearance Urine pH Ur Specific [place] Urine Protein Urine Glucose (UA) Urine Ketones Urine Blood Urine Nitrite Ur Leukocyte Esterase Urine WBC (Auto) Blood Type O POSITIVE Antibody Screen NEGATIVE 06/19/19 18:55 WBC RBC Hgb Hct MCV MCH MCHC RDW Plt Count Seg Neutrophils % Retic Count (auto) Sodium Potassium Chloride Carbon Dioxide Anion Gap BUN Creatinine Est GFR ( Amer) Glucose Calcium Magnesium 1.7 Iron TIBC % Saturation Ferritin Total Bilirubin AST Alkaline Phosphatase Total Protein Albumin Vitamin B12 Folate Urine Color Urine Appearance Urine pH Ur Specific [place] Urine Protein Urine Glucose (UA) Urine Ketones Urine Blood Urine Nitrite Ur Leukocyte Esterase Urine WBC (Auto) Blood Type Antibody Screen Assessment and Plan - Diagnosis (1) GI bleed Qualifiers: GI bleed type/associated pathology: unspecified gastrointestinal hemorrhage type Qualified Code(s): K92.2 - Gastrointestinal hemorrhage, unspecified Is this a current diagnosis for this admission?: Yes Plan: Unclear source. Surgery is consulted. Plan for EGD/Colonoscopy tomorrow. Pt reports PPI allergy. (2) Anemia Qualifiers: Anemia type: other cause Other causes of anemia: chronic disease, other Qualified Code(s): D63.8 - Anemia in other chronic diseases classified elsewhere Is this a current diagnosis for this admission?: Yes Plan: Secondary to #1 s/p 2 units PRBC Follow up CBC pending. Continue to monitor and transfuse as indicated (3) Chronic schizoaffective disorder Is this a current diagnosis for this admission?: Yes Plan: Continue home medication regiment once reconciled/verified by pharmacy. Have asked that the patient's outpatient pharmacy be contacted for clarification. (4) Insulin dependent diabetes mellitus Is this a current diagnosis for this admission?: Yes Plan: Humalog sliding scale every 6 hours while n.p.o. Hypoglycemia protocol. - Time Time Spent with patient: 15-24 minutes Medications reviewed and adjusted accordingly: Yes Anticipated discharge: Home
[2019-06-20 14:30] LABS: MEAN CORPUSCULAR HEMOGLOBIN 27.4 pg (27.0-33.4); MEAN CORPUSCULAR HGB CONC 32.8 g/dL (32.0-36.0); MEAN CORPUSCULAR VOLUME 84 fl (80-97); PLATELET COUNT 233 10^3/uL (150-450); RED BLOOD COUNT 3.36 10^6/uL (3.72-5.28); RED CELL DISTRIBUTION WIDTH 20.6 % (11.5-14.0); WHITE BLOOD COUNT 7.2 10^3/uL (4.0-10.5)
[2019-06-20 14:33] LABS: HEMOGLOBIN 9.2 g/dL (12.0-15.5)
[2019-06-20] MEDS ORDERED: POTASSI CL 20 MEQ/50 ML RIDER 20 MEQ/50 ML RTUPB IV ONE (15:00)
[2019-06-20] MEDS ORDERED: INFLUENZA QUAD (6MOS+) 2019-20 VAC 0.5 ML SYR IM ONE (15:42)
[2019-06-21] MEDS: INSULIN LISPRO 100 UNIT/ML 3 ML VIAL SUBCUT SCH ×4 (00:27→18:54)
[2019-06-21] MEDS ORDERED: INFLUENZA QUAD (6MOS+) 2019-20 VAC 0.5 ML SYR IM ONE (03:45)
[2019-06-21] MEDS: HEPARIN SOD (PORCINE) 5,000 UNIT/ML 1 ML VIAL SUBCUT SCH ×2 (06:11→14:18)
--- NOTE | 2019-06-21 08:31 | RADIOLOGY REPORT (SQ) ---
EXAM DESCRIPTION: CHEST SINGLE VIEW COMPLETED DATE/TIME: 06/20/2019 8:19 pm REASON FOR STUDY: PREOP COMPARISON: PA and lateral views of the chest from 06/17/2019. EXAM PARAMETERS: NUMBER OF VIEWS: One view. TECHNIQUE: An AP view of the chest was obtained. RADIATION DOSE: NA LIMITATIONS: None. FINDINGS: LUNGS AND PLEURA: Low inspiratory lung volumes. There are ill-defined bilateral basilar p redominant parenchymal opacities. The left lateral costophrenic sulcus is blunted. There is no pneu mothorax. MEDIASTINUM AND HILAR STRUCTURES: The oliver are indistinct. HEART AND VASCULAR STRUCTURES: Cardiac silhouette is enlarged. The pulmonary vasculature is indistin ct. BONES: No acute findings. HARDWARE: The tip of the right IJ dual-lumen port catheter projects within the SVC. OTHER: No other finding. IMPRESSION: Low inspiratory lung volumes, cardiomegaly, probable left pleural effusion and indistinc t bilateral basilar-predominant parenchymal opacities. Clinical correlation for signs and symptoms o f pulmonary edema is recommended. TECHNICAL DOCUMENTATION: JOB ID: [id number] [employer]- All Rights Reserved Reading location - IP/workstation name: [email or web address]
[2019-06-21] MEDS ORDERED: MIDAZOLAM 2 MG/2 ML INJ ONE (16:08)
[2019-06-21] MEDS ORDERED: FENTANYL CITRATE INJ/PF 100 MCG/2 ML AMPUL ONE (16:08)
[2019-06-21] MEDS ORDERED: DEXAMETHASONE SOD PHOSPHATE INJ 4 MG/1 ML VIAL ONE (16:09)
[2019-06-21] MEDS ORDERED: PROPOFOL INJ 200 MG/20 ML VIAL IV ONE (16:09)
[2019-06-21] MEDS ORDERED: ONDANSETRON HCL INJ/PF 4 MG/2 ML SDV ONE (16:09)
[2019-06-21] MEDS ORDERED: KETAMINE HCL INJ 500 MG/10 ML VIAL ONE (16:11)
--- NOTE | 2019-06-21 17:02 | PDOC PROGRESS REPORT ---
Subjective Progress Note for:: 06/21/19 Subjective:: The patient is a 59-year-old female with a past medical history of CHF, CAD, hypertension, COPD, hypothyroidism, diabetes, hypertension, morbid obesity, bipolar and recent GI bleed with subsequent anemia who was admitted 06/20/2019 for and GI bleeding with symptomatic anemia. Patient was seen on morning rounds. She is found sitting up to the recliner, comfortably, on room air. She reports stool and urinary incontinence overnight related to bowel prep. She specifically denies chest pain, palpitations, dyspnea, orthopnea, abdominal pain, nausea vomiting and diarrhea. She has had several weeks of melena. She has no other questions or concerns at this time. No concerns per nursing. Reason For Visit: GIB ANEMIA, DM, HTN Physical Exam Vital Signs: Temp Pulse Resp BP Pulse Ox 98.2 F 89 16 131/69 H 100 06/21/19 12:47 06/21/19 12:47 06/21/19 12:47 06/21/19 12:47 06/21/19 12:47 Intake & Output 06/20/19 06/21/19 06/22/19 06:59 06:59 06:59 Intake Total 850 0 0 Output Total 0 0 Balance 850 0 0 Weight 113.398 kg 140 kg General appearance: PRESENT: no acute distress, cooperative, morbidly obese, we ll-developed, well-nourished Head exam: PRESENT: atraumatic, normocephalic Eye exam: PRESENT: conjunctiva pink, EOMI, PERRLA. ABSENT: scleral icterus Ear exam: PRESENT: normal external ear exam Mouth exam: PRESENT: moist, tongue midline Teeth exam: PRESENT: poor dentation Respiratory exam: PRESENT: clear to auscultation christine, symmetrical, unlabored. ABSENT: rales, rhonchi, wheezes Cardiovascular exam: PRESENT: RRR, +S1, +S2. ABSENT: diastolic murmur, rubs, systolic murmur Pulses: PRESENT: normal dorsalis pedis pul Vascular exam: PRESENT: normal capillary refill GI/Abdominal exam: PRESENT: normal bowel sounds, soft. ABSENT: distended, guard ing, mass, organolmegaly, rebound, tenderness Rectal exam: PRESENT: deferred Extremities exam: PRESENT: full ROM. ABSENT: calf tenderness, clubbing, pedal edema Neurological exam: PRESENT: alert, awake, oriented to person, oriented to place, oriented to time, oriented to situation, CN II-XII grossly intact. ABSENT: motor sensory deficit Psychiatric exam: PRESENT: normal mood, unusual affect. ABSENT: homicidal ideation, suicidal ideation Skin exam: PRESENT: dry, intact, warm. ABSENT: cyanosis, rash Results Laboratory Results: 06/20/19 13:45 06/19/19 18:55 Impressions: Chest X-Ray 06/20/19 00:00 IMPRESSION: Low inspiratory lung volumes, cardiomegaly, probable left pleural effusion and indistinct bilateral basilar-predominant parenchymal opacities. Clinical correlation for signs and symptoms of pulmonary edema is recommended. Assessment and Plan - Diagnosis (1) GI bleed Qualifiers: GI bleed type/associated pathology: unspecified gastrointestinal hemorrhage type Qualified Code(s): K92.2 - Gastrointestinal hemorrhage, unspecified Is this a current diagnosis for this admission?: Yes Plan: Unclear source. Surgery is consulted. Plan for EGD/Colonoscopy this afternoon. Pt reports PPI allergy. (2) Anemia Qualifiers: Anemia type: other cause Other causes of anemia: chronic disease, other Qualified Code(s): D63.8 - Anemia in other chronic diseases classified elsewhere Is this a current diagnosis for this admission?: Yes Plan: Secondary to #1 s/p 2 units PRBC Hgb 7.0-> 9.2; patient refused AM lab work. Anemia panel reveals B12 deficiency Continue to monitor and transfuse as indicated B12 1000 mcg IM x1 Outpatient follow up with Hematology. (3) Chronic schizoaffective disorder Is this a current diagnosis for this admission?: Yes Plan: Continue home medication regiment once reconciled/verified by pharmacy. Have asked that the patient's outpatient pharmacy be contacted for clarification. (4) Insulin dependent diabetes mellitus Is this a current diagnosis for this admission?: Yes Plan: Humalog sliding scale every 6 hours while n.p.o. Hypoglycemia protocol. - Time Time Spent with patient: 25-34 minutes Medications reviewed and adjusted accordingly: Yes Anticipated discharge: Home Within: within 24 hours
[2019-06-21] MEDS ORDERED: CYANOCOBALAMIN (VITAMIN B-12) INJ 1000 MCG/1 ML VIAL IM ONE ×2 (17:30→20:30)
--- NOTE | 2019-06-21 17:35 | Operative Report ---
Nonrecallable Operative Report DATE OF SURGERY: 06/21/19 PREOPERATIVE DIAGNOSIS: anemia POSTOPERATIVE DIAGNOSIS: anemia OPERATION: esophagogastroduodenoscopy and colonoscopy SURGEON: JOSE LANDEROS ANESTHESIA: LMAC TISSUE REMOVED OR ALTERED: none COMPLICATIONS: none ESTIMATED BLOOD LOSS: 0 INTRAOPERATIVE FINDINGS: see dictation PROCEDURE: Patient was brought to the operating awake alert stable condition procedure was done on the operative gurney she was given LMAC anesthesia for the procedure. After appropriate timeout and site verification the procedure commenced. Olympus gastroscope was passed into the posterior pharynx and easily traversed the upper esophageal sphincters in the proximal esophagus we traversed the esophagus down to the GE junction as we entered the stomach we noted normal mucosa without evidence of bleeding or mucosal abnormalities no ulcers no large varices. We able to visualize the antrum then intubated the pylorus we scope down to the second portion of the duodenum all appeared to be normal we slowly withdrew the scope again past the pylorus a retroflex was performed which showed the GE junction and again no evidence of abnormalities no hiatal hernia the scope was then slowly withdrawn. We then commenced the colonoscopy portion of the procedure. The Olympus colonoscope was passed into the rectum we are able to traverse the sigmoid colon to the descending colon we then were able to visualize the descending colon up to the splenic flexure transverse colon hepatic flexure ascending colon and cecum. The bowel prep was moderate to good. The bowel prep was especially good on the right side were noted no mucosal abnormalities there were no ulcers there were no telangiectasias no evidence of colitis no polyps we slowly withdrew the scope past the hepatic flexure through the transverse colon again noted no evidence of mucosal abnormalities the splenic flexure was then visualized as well as the descending colon I did not see any telangiectasias nor did I see any polyps. There was small amount of liquid stool in the descending colon which was suctioned away to give us better visualization of the mucosa and against no evidence of abnormalities there were no diverticula. As we slowly came through the rectum we did note large internal hemorrhoids that did have obvious signs of recent bleeding and bled easily on contact. Scope was then withdrawn. Impression. #1 normal upper endoscopy. 2. Colonoscopy to the cecum without evidence of telangiectasias or sites of mucosal abnormalities 3. Large internal hemorrhoids with evidence of recent bleeding. Recommendations patient should be started on a high-fiber diet for her hemorrh oids. She can be referred to surgical clinic as an outpatient for possible hemorrhoidal banding. Please recontact surgery if any further needs arise.
[2019-06-21 19:12] LABS: ABSOLUTE EOSINOPHILS # (AUTO) 0.2 10^3/uL (0.0-0.6); ABSOLUTE LYMPHOCYTES (AUTO) 1.1 10^3/uL (0.5-4.7); ABSOLUTE MONOCYTES (AUTO) 0.2 10^3/uL (0.1-1.4); ABSOLUTE NEUT (AUTO) 5.4 10^3/uL (1.7-8.2); BASOPHILS % (AUTO) 0.6 % (0-2); EOSINOPHILS % (AUTO) 2.7 % (0-6); HEMATOCRIT 29.1 % (36.0-47.0); HEMOGLOBIN 9.5 g/dL (12.0-15.5); LYMPHOCYTES % (AUTO) 16.5 % (13-45); MEAN CORPUSCULAR HEMOGLOBIN 27.2 pg (27.0-33.4); MEAN CORPUSCULAR HGB CONC 32.8 g/dL (32.0-36.0); MEAN CORPUSCULAR VOLUME 83 fl (80-97); MONOCYTES % (AUTO) 2.7 % (3-13); PLATELET COUNT 253 10^3/uL (150-450); RED CELL DISTRIBUTION WIDTH 20.9 % (11.5-14.0); SEGMENTED NEUTROPHILS % (AUTO) 77.5 % (42-78); TOTAL CELLS COUNTED % (AUTO) 100 %; WHITE BLOOD COUNT 6.9 10^3/uL (4.0-10.5)
[2019-06-21 19:45] LABS: ANISOCYTOSIS 2+; OVALOCYTES 1+; PLATELET COMMENT ADEQUATE; POIKILOCYTOSIS 1+; POLYCHROMASIA 1+
[2019-06-21 20:12] VITALS: BP 132/77
--- NOTE | 2019-06-22 07:53 | PDOC DISCHARGE SUMMARY ---
Impression - Admit/DC Date/PCP Admission Date/Primary Care Provider: 06/20/19 05:15 JAZMÍN GURROLA PA-C Discharge Date: 06/21/19 - Discharge Diagnosis (1) GI bleed Is this a current diagnosis for this admission?: Yes (2) Anemia Is this a current diagnosis for this admission?: Yes (3) Chronic schizoaffective disorder Is this a current diagnosis for this admission?: Yes (4) Insulin dependent diabetes mellitus Is this a current diagnosis for this admission?: Yes (5) Internal hemorrhoid Is this a current diagnosis for this admission?: Yes - Additional Information Resuscitation Status: Full Code Discharge Diet: Regular, Other (Comments) Discharge Activity: Activity As Tolerated, Balance Activity w/Rest Referrals: SANCHEZ RDZ MD [ACTIVE STAFF] - (Within 2 weeks) JOSE LANDEROS MD [ACTIVE STAFF] - (Follow up in 2-4 weeks.) JAZMÍN GURROLA PA-C [Primary Care Provider] - (Follow up within 1 week.) Prescriptions: Wheat Dextrin [Benefiber] 1 each PO DAILY #30 powd.pack Docusate Sodium [Colace] 100 mg PO BID #60 capsule Home Medications: Albuterol Sulfate [Proair HFA Inhalation Aerosol 8.5 gm MDI] 2 puff IH Q4HP PRN 12/07/18 Amitriptyline HCl [Elavil 150 mg Tablet] 150 mg PO QHS 12/07/18 Atorvastatin Calcium [Lipitor 40 mg Tablet] 40 mg PO QHS 12/07/18 Benztropine Mesylate [Cogentin 1 mg Tablet] 1 mg PO Q12 12/07/18 Budesonide/Formoterol Fumarate [Symbicort HFA 160-4.5 mcg Inhaler 6 gm] 2 puff IH Q12 12/07/18 Bupropion HCl [Wellbutrin Sr 150 mg Tablet] 150 mg PO QPM 12/07/18 Doxepin HCl [Sinequan 10 mg Capsule] 20 mg PO QHS 12/07/18 Duloxetine HCl [Cymbalta] 60 mg PO Q12 12/07/18 Furosemide [Lasix 40 mg Tablet] 40 mg PO BID 12/07/18 Gabapentin [Neurontin 300 mg Capsule] 300 mg PO Q12 12/07/18 Insulin Glargine,Hum.rec.anlog [Lantus Insulin 100 Unit/1 ml 10 ml] 55 units SQ QAM 12/07/18 Insulin Glargine,Hum.rec.anlog [Lantus Insulin 100 Unit/1 ml 10 ml] 65 units SQ QPM 12/07/18 Insulin Lispro [Humalog Kwikpen U-100] 0 units SQ .PERSLIDINGSCALE 12/07/18 Irbesartan [Avapro] 150 mg PO QAM 12/07/18 Levothyroxine Sodium 50 mcg PO Q6AM 12/07/18 Nitroglycerin [Nitro-Dur 5 mg (0.2 mg/Hr) Transdermal Patch] 1 patch TD DAILY 12/07/18 Omeprazole 40 mg PO Q12 12/07/18 Oxycodone HCl/Acetaminophen [Percocet 10-325 mg Tablet] 1 tab PO Q8HP PRN 12/07/18 Saxagliptin HCl [Onglyza] 2.5 mg PO QAM 12/07/18 Topiramate [Topamax] 150 mg PO Q12 12/07/18 Meclizine HCl [Antivert 25 mg Tablet] 25 mg PO TIDP PRN 04/30/19 Triamcinolone Acetonide 1 applic TP DAILY MDD face 04/30/19 Triamcinolone Acetonide [Aristocort 0.1% Ointment] 1 applic TP BID MDD legs 04/30/19 Naloxegol Oxalate [Movantik 25 mg Tablet] 25 mg PO DAILY 06/20/19 Docusate Sodium [Colace] 100 mg PO BID #60 capsule 06/21/19 Wheat Dextrin [Benefiber] 1 each PO DAILY #30 powd.pack 06/21/19 History of Present Illiness History of Present Illness: Per H&P by Dr. Amador: SANTOS NAVARRO is a 59 year old female with a past medical history of congestive heart failure, coronary artery disease, hypertension, COPD, hypothyroidism diabetes, hypertension, morbid obesity, bipolar and recent GI bleed with subsequent anemia. Bleeding scan obtained April 30, 2019 showed active mid abdominal left-sided bleed. Surgery was recommended however the patient left AGAINST MEDICAL ADVICE. She returns with symptoms after a ROB D wellness check finds her dizzy and fatigued. In the emergency department she is found to have a hemoglobin of only 7. She is transfused 2 units of packed red blood cells, surgery is consulted recommending endoscopy for which the patient agrees to stay. She is referred to the hospitalist for admission. She denies recent change in medication regiment she is otherwise felt well. Denying nausea vomiting or black stools she does admit constipation. Hospital Course Hospital Course: The patient was admitted to [facility] on continuous cardiac telemetry. She was provided 2 units PRBC secondary to acute blood loss anemia with follow-up hemoglobin of 9.5 greater than 24 hours later and no further episodes of rectal bleeding. The patient's anemia panel did reveal a mild B12 deficiency; she was provided B12 1000 mcg IM injection prior to her discharge and was recommended to follow-up with hematology in 2 to 4 weeks. The patient did undergo an EGD and colonoscopy. EGD was unremarkable. Colonoscopy revealed large internal hemorrhoids with evidence of recent bleeding. Surgery recommends the patient start on a high-fiber diet and follow- up at the surgical clinic for possible hemorrhoidal banding. Otherwise, the patient's chronic medical conditions remained stable. At time of discharge, the patient is in stable condition, asymptomatic, ambulatory, tolerating a regular diet, without further episodes of rectal bleeding and requesting to be discharged to home. She is advised to follow-up with her primary care provider within 1 week. She is instructed to follow-up with Dr. Landeros at the surgical clinic within 2 to 4 weeks for possible hemorrhoidal banding. She is encouraged to follow-up with Dr. Deleon, hematology, for further evaluation and management of her anemia. She is instructed to eat a high-fiber diet and avoid constipation. Drink plenty of water. She is encouraged to return to the emergency department as needed for concerning symptoms. Physical Exam Vital Signs: Temp Pulse Resp BP Pulse Ox 98.2 F 81 19 132/77 H 99 06/21/19 19:49 06/21/19 19:49 06/21/19 19:49 06/21/19 19:49 06/21/19 19:49 Intake & Output 06/21/19 06/22/19 06/23/19 06:59 06:59 06:59 Intake Total 0 375 Output Total 0 0 Balance 0 375 Weight 140 kg General appearance: PRESENT: no acute distress, obese, well-developed, well- nourished Head exam: PRESENT: atraumatic, normocephalic Eye exam: PRESENT: conjunctiva pink, EOMI, PERRLA. ABSENT: scleral icterus Ear exam: PRESENT: normal external ear exam Mouth exam: PRESENT: moist, tongue midline Teeth exam: PRESENT: poor dentation Respiratory exam: PRESENT: clear to auscultation christine, symmetrical, unlabored. ABSENT: rales, rhonchi, wheezes Cardiovascular exam: PRESENT: RRR, +S1, +S2. ABSENT: diastolic murmur, rubs, systolic murmur Pulses: PRESENT: normal dorsalis pedis pul Vascular exam: PRESENT: normal capillary refill GI/Abdominal exam: PRESENT: normal bowel sounds, soft. ABSENT: distended, guarding, mass, organolmegaly, rebound, tenderness Rectal exam: PRESENT: deferred Extremities exam: PRESENT: full ROM. ABSENT: calf tenderness, clubbing, pedal edema Neurological exam: PRESENT: alert, awake, oriented to person, oriented to place, oriented to time, oriented to situation, CN II-XII grossly intact. ABSENT: motor sensory deficit Psychiatric exam: PRESENT: appropriate affect, normal mood. ABSENT: homicidal ideation, suicidal ideation Skin exam: PRESENT: dry, intact, warm. ABSENT: cyanosis, rash Results Laboratory Results: WBC 6.9 10^3/uL (4.0-10.5) 06/21/19 18:30 RBC 3.50 10^6/uL (3.72-5.28) L 06/21/19 18:30 Hgb 9.5 g/dL (12.0-15.5) L 06/21/19 18:30 Hct 29.1 % (36.0-47.0) L 06/21/19 18:30 MCV 83 fl (80-97) 06/21/19 18:30 MCH 27.2 pg (27.0-33.4) 06/21/19 18:30 MCHC 32.8 g/dL (32.0-36.0) 06/21/19 18:30 RDW 20.9 % (11.5-14.0) H 06/21/19 18:30 Plt Count 253 10^3/uL (150-450) 06/21/19 18:30 Lymph % (Auto) 16.5 % (13-45) 06/21/19 18:30 Dare % (Auto) 2.7 % (3-13) L 06/21/19 18:30 Eos % (Auto) 2.7 % (0-6) 06/21/19 18:30 Baso % (Auto) 0.6 % (0-2) 06/21/19 18:30 Reticulocyte # 0.139 10^6/uL (0.028-0.122) H 06/19/19 18:55 Absolute Neuts (auto) 5.4 10^3/uL (1.7-8.2) 06/21/19 18:30 Absolute Lymphs (auto) 1.1 10^3/uL (0.5-4.7) 06/21/19 18:30 Absolute Monos (auto) 0.2 10^3/uL (0.1-1.4) 06/21/19 18:30 Absolute Eos (auto) 0.2 10^3/uL (0.0-0.6) 06/21/19 18:30 Absolute Basos (auto) 0.0 10^3/uL (0.0-0.2) 06/21/19 18:30 Seg Neutrophils % 77.5 % (42-78) 06/21/19 18:30 Platelet Comment ADEQUATE 06/21/19 18:30 Polychromasia 1+ 06/21/19 18:30 Hypochromasia SLIGHT 06/19/19 18:55 Poikilocytosis 1+ 06/21/19 18:30 Anisocytosis 2+ 06/21/19 18:30 Tear Drop Cells SLIGHT 06/19/19 18:55 Ovalocytes 1+ 06/21/19 18:30 Retic Count (auto) 5.32 % (0.66-2.85) H 06/19/19 18:55 Sodium 141.7 mmol/L (137-145) 06/19/19 18:55 Potassium 3.4 mmol/L (3.6-5.0) L 06/19/19 18:55 Chloride 107 mmol/L (98-107) 06/19/19 18:55 Carbon Dioxide 26 mmol/L (22-30) 06/19/19 18:55 Anion Gap 9 (5-19) 06/19/19 18:55 BUN 8 mg/dL (7-20) 06/19/19 18:55 Creatinine 1.15 mg/dL (0.52-1.25) 06/19/19 18:55 Est GFR ( Amer) 58 (>60) L 06/19/19 18:55 Est GFR (MDRD) Non-Af 48 (>60) L 06/19/19 18:55 Glucose 90 mg/dL (75-110) 18 18:55 POC Glucose 89 mg/dL (70-110) 06/21/19 12:54 Calcium 8.7 mg/dL (8.4-10.2) 06/19/19 18:55 Magnesium 1.7 mg/dL (1.6-2.3) 06/19/19 18:55 Iron 75.4 ug/dL (37-170) 06/19/19 18:55 TIBC 274 ug/dL (250-450) 06/19/19 18:55 % Saturation 28 % 18 18:55 Ferritin 192.00 ng/mL (11.1-264.0) 06/19/19 18:55 Total Bilirubin 0.3 mg/dL (0.2-1.3) 06/19/19 18:55 Direct Bilirubin 0.2 mg/dL (0.0-0.4) 06/19/19 18:55 Neonat Total Bilirubin Not Reportable 06/19/19 18:55 Neonat Direct Bilirubin Not Reportable 06/19/19 18:55 Neonat Indirect Bili Not Reportable 18 18:55 AST 17 U/L (14-36) 06/19/19 18:55 ALT 11 U/L (<35) 06/19/19 18:55 Alkaline Phosphatase 171 U/L (38-126) H 06/19/19 18:55 Total Protein 7.3 g/dL (6.3-8.2) 06/19/19 18:55 Albumin 3.8 g/dL (3.5-5.0) 06/19/19 18:55 Vitamin B12 230.0 pg/mL (239-931) L 18 18:55 Folate > 20.00 ng/mL (>2.76) 06/19/19 18:55 Urine Color STRAW 06/19/19 18:55 Urine Appearance CLEAR 06/19/19 18:55 Urine pH 7.0 (5.0-9.0) 18 18:55 Ur Specific Sterling 1.004 06/19/19 18:55 Urine Protein NEGATIVE mg/dL (NEGATIVE) 06/19/19 18:55 Urine Glucose (UA) NEGATIVE mg/dL (NEGATIVE) 06/19/19 18:55 Urine Ketones NEGATIVE mg/dL (NEGATIVE) 06/19/19 18:55 Urine Blood NEGATIVE (NEGATIVE) 06/19/19 18:55 Urine Nitrite NEGATIVE (NEGATIVE) 06/19/19 18:55 Urine Bilirubin NEGATIVE (NEGATIVE) 06/19/19 18:55 Urine Urobilinogen NEGATIVE mg/dL (<2.0) 06/19/19 18:55 Ur Leukocyte Esterase NEGATIVE (NEGATIVE) 06/19/19 18:55 Urine WBC (Auto) 0 /HPF 06/19/19 18:55 Urine Bacteria (Auto) TRACE /HPF 06/19/19 18: Squamous Epi Cells Auto 1 /HPF 06/19/19 18:55 Urine Mucus (Auto) RARE /LPF 06/19/19 18:55 Urine Ascorbic Acid NEGATIVE (NEGATIVE) 06/19/19 18: Blood Type O POSITIVE 06/19/19 18: Antibody Screen NEGATIVE 06/19/19 18: Crossmatch See Detail 06/19/19 18:55 Impressions: Chest X-Ray 06/20/19 00:00 IMPRESSION: Low inspiratory lung volumes, cardiomegaly, probable left pleural effusion and indistinct bilateral basilar-predominant parenchymal opacities. Clinical correlation for signs and symptoms of pulmonary edema is recommended. Plan Plan of Treatment: The patient is discharged home in stable condition. She is advised to follow-up with her primary care provider within 1 week, with Dr. Landeros within 2 to 4 weeks at the outpatient clinic, and with Dr. Perales within 2 to 4 weeks. She is advised to continue a multivitamin with iron supplement, fiber supplementation (such as Metamucil or Benefiber), and a stool softener. She is encouraged to eat a high-fiber diet. Drink plenty of water. She is instructed to return to the emergency department as needed for concerning symptoms. Time Spent: Less than 30 Minutes Stroke Is this a Stroke Patient?: No Acute Heart Failure - Is this a Heart Failure Patient?: No
== END 2019-06-21 20:30 | disposition home or self-care (01) | DRG 394 ==
LOC: ER 17:49 → EH 06-20 05:15 → 3N 06-20 18:51
PROVIDERS: ADMIT Internal Medicine; ATTEND Internal Medicine
PROC: 30233N1 Transfusion of Nonautologous Red Blood Cells into Peripheral Vein, Percutaneous Approach (ICD-10-PCS; 2019-06-19)
PROC: 3E02340 Introduction of Influenza Vaccine into Muscle, Percutaneous Approach (ICD-10-PCS; 2019-06-21)
PROC: 0DJ08ZZ Inspection of Upper Intestinal Tract, Via Natural or Artificial Opening Endoscopic (ICD-10-PCS; principal; 2019-06-21 17:00)
PROC: 0DJD8ZZ Inspection of Lower Intestinal Tract, Via Natural or Artificial Opening Endoscopic (ICD-10-PCS; 2019-06-21 17:00)
DX: K64.8 Other hemorrhoids (principal); D62 Acute posthemorrhagic anemia; F25.9 Schizoaffective disorder, unspecified; I25.10 Atherosclerotic heart disease of native coronary artery without angina pectoris; I10 Essential (primary) hypertension; J44.9 Chronic obstructive pulmonary disease, unspecified; E03.9 Hypothyroidism, unspecified; E66.01 Morbid (severe) obesity due to excess calories; E53.8 Deficiency of other specified B group vitamins; E78.5 Hyperlipidemia, unspecified; G47.30 Sleep apnea, unspecified; E11.51 Type 2 diabetes mellitus with diabetic peripheral angiopathy without gangrene; M79.7 Fibromyalgia; F32.9 Major depressive disorder, single episode, unspecified; F43.10 Post-traumatic stress disorder, unspecified; K21.9 Gastro-esophageal reflux disease without esophagitis; Z60.2 Problems related to living alone; I25.2 Old myocardial infarction; Z23 Encounter for immunization; Z79.4 Long term (current) use of insulin; Z79.890 Hormone replacement therapy; Z79.51 Long term (current) use of inhaled steroids; Z95.5 Presence of coronary angioplasty implant and graft; Z95.1 Presence of aortocoronary bypass graft; Z79.899 Other long term (current) drug therapy; Z88.6 Allergy status to analgesic agent; Z88.1 Allergy status to other antibiotic agents; Z88.0 Allergy status to penicillin; Z88.8 Allergy status to other drugs, medicaments and biological substances; Z88.2 Allergy status to sulfonamides; Z91.19 Patient's noncompliance with other medical treatment and regimen
CPT/HCPCS: 36415; 36430; 43239; 45380; 71045; 71046; 80053; 81001; 813; 82550; 82607; 82728; 82746; 82962; 83540; 83550; 83735; 84484; 85025; 85027; 85045; 86850; 86900; 86901; 86920; 90686; 93005; 93010; 96360; 96361; 99285; J1100; J1644; J1756; J1815; J2250; J2405; J2550; J2704; J3010; J3420; J3480; J3490; J7030; J7050; P9016

== ENCOUNTER 2019-07-02 17:29 | Emergency (ER) | payer MEDICARE, MEDICAID ==
--- NOTE | 2019-07-02 18:47 | ER Document Report ---
ED General - General Chief Complaint: Rectal Bleeding Stated Complaint: RECTAL BLEEDING Time Seen by Provider: 07/02/19 17:52 Primary Care Provider: JAZMÍN GURROLA PA-C [Primary Care Provider] - Follow up as needed Notes: This 5-year-old woman presents to the emergency department with complaint of GI bleeding. She has had a chronic history of rectal bleeding since 2010. Apparently was noted to have a colonic issue and offered surgery, she refused. She now presents after being admitted to the hospital 06/21/2019. Evaluation revealed an anemia, transfused from 7 up to 9. She was seen by home health nurse today who does not know her and saw the remnants of blood in her pull-ups and suggested that she come to the emergency department. The patient did not want to come, however, the attendant was insistent. She now states that she wants to go home. TRAVEL OUTSIDE OF THE [place] IN LAST 30 DAYS: No - Related Data Allergies/Adverse Reactions: cephalexin monohydrate [From Keflex] Allergy (Unknown, Verified 05/14/19 11:09) codeine [Codeine] Allergy (Unknown, Verified 05/14/19 11:09) dicyclomine HCl [From Bentyl] Allergy (Unknown, Verified 05/14/19 11:09) hydrocodone bitartrate [From Vicodin] Allergy (Unknown, Verified 05/14/19 11:09) meloxicam [From Mobic] Allergy (Unknown, Verified 05/14/19 11:09) meperidine HCl [From Demerol (PF)] Allergy (Unknown, Verified 05/14/19 11:09) morphine [Morphine] Allergy (Unknown, Verified 05/14/19 11:09) naproxen sodium [From Naprelan CR Dosepak] Allergy (Unknown, Verified 05/14/19 11:09) nitrofurantoin [From Macrobid] Allergy (Unknown, Verified 05/14/19 11:09) pantoprazole sodium [From Protonix] Allergy (Unknown, Verified 05/14/19 11:09) Penicillins Allergy (Unknown, Verified 04/29/19 15:45) Sulfa (Sulfonamide Antibiotics) Allergy (Unknown, Verified 04/29/19 15:45) aspirin Allergy (Verified 04/29/19 15:45) lamotrigine [From Lamictal] Allergy (Verified 04/29/19 15:45) rash Past Medical History - Social History Smoking Status: Unknown if Ever Smoked Frequency of alcohol use: None Drug Abuse: None Family History: Reviewed & Not Pertinent, Hypertension Patient has suicidal ideation: No Patient has homicidal ideation: No - Past Medical History Cardiac Medical History: Reports: Hx Congestive Heart Failure, Hx Coronary Artery Disease, Hx Heart Attack, Hx Hypercholesterolemia, Hx Hypertension, Hx Peripheral Vascular Disease Denies: Hx Heart Murmur Pulmonary Medical History: Reports: Hx Asthma, Hx COPD, Hx Sleep Apnea Denies: Hx Bronchitis, Hx Pneumonia, Hx Respiratory Failure, Hx Tuberculosis Neurological Medical History: Reports: Hx Migraine. Denies: Hx Cerebrovascular Accident, Hx Seizures, Hx Parkinson's Disease Endocrine Medical History: Reports: Hx Diabetes Mellitus Type 2, Hx Hyperthyroidism, Hx Hypothyroidism Renal/ Medical History: Reports: Hx Renal Insufficiency. Denies: Hx End Stage Renal Disease, Hx Kidney Stones, Hx Peritoneal Dialysis Malignancy Medical History: GI Medical History: Reports: Hx Gastroesophageal Reflux Disease. Denies: Hx Cirrhosis, Hx Pancreatitis, Hx Ulcer Musculoskeletal Medical History: Reports Hx Arthritis, Reports Hx Fibromyalgia, Denies Hx Multiple Sclerosis, Reports Hx Muscle Weakness, Denies Hx Systemic Lupus Erythematosus Psychiatric Medical History: Reports: Hx Depression, Hx Post Traumatic Stress Disorder Denies: Hx Bipolar Disorder, Hx Schizophrenia Traumatic Medical History: Infectious Medical History: Past Surgical History: Reports: Hx Cardiac Catheterization, Hx Section - x2, Hx Coronary Artery Bypass Graft, Hx Coronary Stent - x2, Hx Hysterectomy, Hx Orthopedic Surgery, Hx Tubal Ligation, Other - multiple colonoscopies for lower GI bleed - Immunizations Hx Diphtheria, Pertussis, Tetanus Vaccination: Yes Hx Pneumococcal Vaccination: 04/02/13 Physical Exam - Vital signs Vitals: Temp Pulse Resp BP Pulse Ox 98.3 F 86 12 113/78 100 07/02/19 17:53 07/02/19 17:53 07/02/19 17:53 07/02/19 17:53 07/02/19 17:53 Course - Vital Signs Vital signs: Temp Pulse Resp BP Pulse Ox 98.3 F 86 12 113/78 100 07/02/19 17:53 07/02/19 17:53 07/02/19 17:53 07/02/19 17:53 07/02/19 17:53 - Laboratory Result Diagrams: 07/02/19 18:44 07/02/19 18:44 Laboratory results interpreted by me: 07/02/19 07/02/19 18:44 18:44 Hgb 10.1 L Hct 31.9 L MCHC 31.6 L RDW 18.5 H Est GFR ( Amer) 54 L Est GFR (MDRD) Non-Af 45 L Direct Bilirubin 0.5 H Alkaline Phosphatase 174 H Total Protein 8.8 H Discharge - Discharge Clinical Impression: Rectal bleeding Condition: Good Disposition: HOME, SELF-CARE Instructions: Rectal Bleeding, Unclear Cause ([facility]) Additional Instructions: Your blood count was found to be stable tonight and your GI bleeding is not a threat to your life for health at this time. Please follow-up with your doctor as needed, you also have the right to return to the emergency department if needed. Referrals: JAZMÍN GURROLA PA-C [Primary Care Provider] - Follow up as needed
[2019-07-02 19:01] LABS: ABSOLUTE BASOPHILS # (AUTO) 0.1 10^3/uL (0.0-0.2); ABSOLUTE EOSINOPHILS # (AUTO) 0.3 10^3/uL (0.0-0.6); ABSOLUTE MONOCYTES (AUTO) 0.5 10^3/uL (0.1-1.4); ABSOLUTE NEUT (AUTO) 5.3 10^3/uL (1.7-8.2); BASOPHILS % (AUTO) 0.7 % (0-2); EOSINOPHILS % (AUTO) 3.5 % (0-6); HEMATOCRIT 31.9 % (36.0-47.0); HEMOGLOBIN 10.1 g/dL (12.0-15.5); LYMPHOCYTES % (AUTO) 24.5 % (13-45); MEAN CORPUSCULAR HGB CONC 31.6 g/dL (32.0-36.0); MEAN CORPUSCULAR VOLUME 85 fl (80-97); MONOCYTES % (AUTO) 6.1 % (3-13); PLATELET COUNT 261 10^3/uL (150-450); RED BLOOD COUNT 3.74 10^6/uL (3.72-5.28); RED CELL DISTRIBUTION WIDTH 18.5 % (11.5-14.0); SEGMENTED NEUTROPHILS % (AUTO) 65.2 % (42-78); TOTAL CELLS COUNTED % (AUTO) 100 %; WHITE BLOOD COUNT 8.1 10^3/uL (4.0-10.5)
[2019-07-02 19:15] LABS: ANISOCYTOSIS 1+; HYPOCHROMASIA SLIGHT; OVALOCYTES SLIGHT
[2019-07-02 19:16] LABS: PLATELET COMMENT ADEQUATE
[2019-07-02 19:18] LABS: ALBUMIN 4.6 g/dL (3.5-5.0); ALKALINE PHOSPHATASE 174 U/L (38-126); ANION GAP 16 (5-19); ASPARTATE AMINO TRANSFERASE 28 U/L (14-36); BILIRUBIN,DIRECT 0.5 mg/dL (0.0-0.4); BILIRUBIN,TOTAL 0.5 mg/dL (0.2-1.3); BLOOD UREA NITROGEN 17 mg/dL (7-20); CALCIUM 10.1 mg/dL (8.4-10.2); CARBON DIOXIDE 24 mmol/L (22-30); CHLORIDE 102 mmol/L (98-107); GLUCOSE 107 mg/dL (75-110); POTASSIUM 4.2 mmol/L (3.6-5.0); TOTAL PROTEIN 8.8 g/dL (6.3-8.2)
[2019-07-02 21:02] VITALS: BP 122/74
== END 2019-07-02 21:02 | disposition home or self-care (01) ==
LOC: ER 17:29
DX: K62.5 Hemorrhage of anus and rectum (principal); I50.9 Heart failure, unspecified; I25.10 Atherosclerotic heart disease of native coronary artery without angina pectoris; I25.2 Old myocardial infarction; I11.0 Hypertensive heart disease with heart failure; J44.9 Chronic obstructive pulmonary disease, unspecified; E11.9 Type 2 diabetes mellitus without complications
CPT/HCPCS: 36415; 80053; 85025; 99283

== ENCOUNTER → 2019-08-21 | Outpatient (CLI) | payer MEDICARE, MEDICAID ==
--- NOTE | 2019-08-23 15:12 | XCELERA REPORT ---
[address] [address] Lower Extremity Arterial Evaluation Name: SANTOS NAVARRO Age: 59 yrs Gender: Female : 1960 Patient Status: Outpatient Patient Location: RAD Study Date: 08/21/2019 11:15 AM Procedure: A color flow and duplex scan of the lower extremity arteries was performed bilaterally with velocity and waveform anaylsis. Ankle brachial indicies performed. Reason For Study: RT FOOT ULCER Ordering Physician: LORIE GOLDSMITH Performed By: Ibrahima Bryant Measurements and Calculations Right Left MEDICAL TECHNOLOGIST CHIEF PSV 195.4 183.7 cm/sec Prox PFA PSV -132.7 101.2 cm/sec Prox SFA PSV 172.0 152.4 cm/sec Mid SFA PSV -136.2 -149.3cm/sec Dist SFA PSV -66.5 -94.0 cm/sec Prox Pop A PSV 175.0 110.0 cm/sec Dist KATRIN PSV 89.1 94.8 cm/sec Dist SHOE REPAIR SUPERVISOR PSV 61.9 70.6 cm/sec Elias Pedis PSV -32.2 85.0 cm/sec Right Side Arterial Evaluation Mass with echogenic center , lucent periphery 5.5 x 1.8 x 4.1 cms, in groin . Normal velocity and biphasic waveforms noted from the Common Femoral artery to the infrageniculate vessels . Triphasic with normal velocity in the Deep Femoral. Ankle Brachial index 0.89. Left Side Arterial Evaluation Mass with echogenic center , lucent periphery 5.5 x 1.8 x 4.1 cms, in groin . Normal velocity and biphasic waveforms noted from the Common Femoral artery to the infrageniculate vessels . Ankle Brachial index 0.89. Interpretation Summary Moderate hemodynamically significant lesions in the bilateral lower extremities, on duplex imaging, at rest. Duplex findings significant for a large Lymph node in the right groin, No focal stenos, however pattern consistent with inflow disease. SHARAD's are abnormal, suggesting mild arterial obstructive disease. At some variance with the duplex findings. : LORIE GOLDSMITH > Jean Lopez
== END ==
LOC: RAD 10:52
PROVIDERS: ATTEND Preventive Medicine Undersea and Hyperbaric Medicine
DX: L97.512 Non-pressure chronic ulcer of other part of right foot with fat layer exposed (principal)
CPT/HCPCS: 93922; 93925

== ENCOUNTER 2019-11-26 07:48 | Outpatient (CLI) | payer MEDICARE, MEDICAID ==
[~2019-11-26 07:48] MED LIST changes: +FERRIC CARBOXYMALTOSE 750 MG in NORMAL SALINE 250 ML IV PRN; -FUROSEMIDE INJ/PF 20 MG/2 ML SDV IV PRN
[2019-11-26] MEDS ORDERED: NORMAL SALINE 250 ML IV PRN (08:00)
[2019-11-26 08:10] VITALS: BP 105/59
== END 2019-11-26 09:15 | disposition home or self-care (01) ==
LOC: II 07:48 → 5TH 08:21 → II 09:15
PROVIDERS: ATTEND Internal Medicine Hematology & Oncology
DX: D50.9 Iron deficiency anemia, unspecified (principal); K90.9 Intestinal malabsorption, unspecified
CPT/HCPCS: 96374; J7050; J1439; J1642

== ENCOUNTER 2019-12-03 07:27 | Outpatient (CLI) | payer MEDICARE, MEDICAID ==
[~2019-12-03 07:27] MED LIST changes: +NORMAL SALINE 250 ML IV PRN
[2019-12-03 07:54] VITALS: BP 137/58
== END 2019-12-03 09:00 | disposition home or self-care (01) ==
LOC: II 07:27 → 5TH 07:34 → II 09:00
PROVIDERS: ATTEND Internal Medicine Hematology & Oncology
DX: D50.9 Iron deficiency anemia, unspecified (principal); K90.9 Intestinal malabsorption, unspecified
CPT/HCPCS: 96365; J7050; J1439; J1642

== ENCOUNTER 2020-01-17 16:05 | Emergency (ER) | payer MEDICARE, MEDICAID ==
[2020-01-17] MEDS: NORMAL SALINE 1000 ML 1,000 ML IV PRN ×2 (16:41→18:23)
--- NOTE | 2020-01-17 17:30 | RADIOLOGY REPORT (SQ) ---
EXAM DESCRIPTION: CHEST SINGLE VIEW IMAGES COMPLETED DATE/TIME: 01/17/2020 3:48 pm REASON FOR STUDY: hypotension COMPARISON: 06/20/2019 EXAM PARAMETERS: NUMBER OF VIEWS: One view. TECHNIQUE: Single frontal radiographic view of the chest acquired. RADIATION DOSE: NA LIMITATIONS: Motion FINDINGS: LUNGS AND PLEURA: There is motion artifact which obscures detail. There appear to be patc hy alveolar opacities with a lower lobe predominance. Probable small bilateral pleural effusions. MEDIASTINUM AND HILAR STRUCTURES: No masses. Contour normal. HEART AND VASCULAR STRUCTURES: Moderate cardiomegaly. Moderate pulmonary edema. BONES: No acute findings. HARDWARE: Central venous catheter unchanged. OTHER: No other significant finding. IMPRESSION: Probable moderate pulmonary edema. TECHNICAL DOCUMENTATION: JOB ID: [id number] 2010 [employer]- All Rights Reserved Reading location - IP/workstation name: [email or web address]
--- NOTE | 2020-01-17 17:36 | ER Document Report ---
ED General - General Chief Complaint: Chest Pain > 30 Stated Complaint: BLOOD PRESSURE PROBLEM Time Seen by Provider: 01/17/20 16:19 Primary Care Provider: MAISHA DUTTON MD [Primary Care Provider] - Follow up as needed TRAVEL OUTSIDE OF THE [place] IN LAST 30 DAYS: No - HPI Notes: Patient is a 59-year-old female who presents to the emergency department for evaluation of dizziness and low blood pressure. Patient states she developed some chest heaviness. It lasted for about an hour. She denies any associated shortness of breath, nausea, diaphoresis, near syncope with it. The patient states she started to feel dizzy and lightheaded, particularly when she stood up to go to the kitchen. She denies any fevers or chills. No nausea or vomiting. She states she is eating and drinking normally. She states she has been coughing and short of breath. She states this is because she has been eating laundry starch. She tells me it is an addiction. She states it makes her cough and short of breath, but she cannot stop. She states that because he was dizzy, she took 2 meclizine at home. EMS found her to be hypotensive, so she is brought to the ED for further evaluation. - Related Data Allergies/Adverse Reactions: cephalexin monohydrate [From Keflex] Allergy (Unknown, Verified 05/14/19 11:09) codeine [Codeine] Allergy (Unknown, Verified 05/14/19 11:09) dicyclomine HCl [From Bentyl] Allergy (Unknown, Verified 05/14/19 11:09) hydrocodone bitartrate [From Vicodin] Allergy (Unknown, Verified 05/14/19 11:09) meloxicam [From Mobic] Allergy (Unknown, Verified 05/14/19 11:09) meperidine HCl [From Demerol (PF)] Allergy (Unknown, Verified 05/14/19 11:09) morphine [Morphine] Allergy (Unknown, Verified 05/14/19 11:09) naproxen sodium [From Naprelan CR Dosepak] Allergy (Unknown, Verified 05/14/19 11:09) nitrofurantoin [From Macrobid] Allergy (Unknown, Verified 05/14/19 11:09) pantoprazole sodium [From Protonix] Allergy (Unknown, Verified 05/14/19 11:09) Penicillins Allergy (Unknown, Verified 04/29/19 15:45) Sulfa (Sulfonamide Antibiotics) Allergy (Unknown, Verified 04/29/19 15:45) aspirin Allergy (Verified 04/29/19 15:45) lamotrigine [From Lamictal] Allergy (Verified 04/29/19 15:45) rash Home Medications: Insulin. Meclizine. Zofran Hydroxizine Past Medical History - General Information source: Patient, [facility] Records - Social History Smoking Status: Never Smoker Chew tobacco use (# tins/day): No Drug Abuse: None Family History: Reviewed & Not Pertinent, Hypertension Patient has homicidal ideation: No - Medical History Medical History: Other - Anemia - Past Medical History Cardiac Medical History: Reports: Hx Congestive Heart Failure, Hx Coronary Artery Disease, Hx Heart Attack, Hx Hypercholesterolemia, Hx Hypertension, Hx Peripheral Vascular Disease Denies: Hx Heart Murmur Pulmonary Medical History: Reports: Hx Asthma, Hx COPD, Hx Sleep Apnea Denies: Hx Bronchitis, Hx Pneumonia, Hx Respiratory Failure, Hx Tuberculosis Neurological Medical History: Reports: Hx Migraine. Denies: Hx Cerebrovascular Accident, Hx Seizures, Hx Parkinson's Disease Endocrine Medical History: Reports: Hx Diabetes Mellitus Type 2, Hx Hyperthyroidism, Hx Hypothyroidism Renal/ Medical History: Reports: Hx Renal Insufficiency. Denies: Hx End Stage Renal Disease, Hx Kidney Stones, Hx Peritoneal Dialysis Malignancy Medical History: GI Medical History: Reports: Hx Gastroesophageal Reflux Disease. Denies: Hx Cirrhosis, Hx Pancreatitis, Hx Ulcer Musculoskeletal Medical History: Reports Hx Arthritis, Reports Hx Fibromyalgia, Denies Hx Multiple Sclerosis, Reports Hx Muscle Weakness, Denies Hx Systemic Lupus Erythematosus Psychiatric Medical History: Reports: Hx Depression, Hx Post Traumatic Stress Disorder Denies: Hx Bipolar Disorder, Hx Schizophrenia Traumatic Medical History: Infectious Medical History: Past Surgical History: Reports: Hx Cardiac Catheterization, Hx Section - x2, Hx Coronary Artery Bypass Graft, Hx Coronary Stent - x2, Hx Hysterectomy, Hx Orthopedic Surgery, Hx Tubal Ligation, Other - multiple colonoscopies for lower GI bleed - Immunizations Hx Diphtheria, Pertussis, Tetanus Vaccination: Yes Hx Pneumococcal Vaccination: 04/02/13 Review of Systems - Review of Systems Constitutional: See HPI Neurological/Psychological: See HPI -: Yes All other systems reviewed and negative Physical Exam - Vital signs Vitals: BP 76/47 L 01/17/20 16:12 - Notes Notes: This is a morbidly obese, drowsy 59-year-old female appears her stated age, no acute distress. Vital signs reviewed, please refer to chart. Head is normocephalic, atraumatic. Pupils equal round, reactive to light. Neck is supple without meningismus. Heart is regular rate and rhythm. Lungs are clear to auscultation bilaterally. Abdomen is soft, nontender, normoactive bowel sounds throughout. Extremities without cyanosis, clubbing. She has chronic appearing skin changes and edema noted to the mid tibia bilaterally. Posterior calves are nontender. Peripheral pulses are equal. Skin is warm and dry. Patient is drowsy but awakes easily to verbal stimuli. She is oriented x3. Cranial nerves II - XII are grossly intact without focal neurological deficits. Strength is plus 5 out of 5 bilateral upper and lower extremities. Sensation is intact. Reflexes symmetrical. Intact [id number], rapid alternating movements, [id number]. Course - Re-evaluation Re-evalutation: 01/17/20 17:38 Patient presents to the emergency department for evaluation. She is found to be hypotensive during the course of her stay. I did institute a sepsis work-up including troponins. Patient is morbidly obese, and does have a history of CHF she was given IV fluids at 30 cc/kg based on ideal body weight. Awaiting work- up, patient is currently chest pain-free and has remained so since before she got dizzy. We will continue to monitor. 01/17/20 22:00 Patient became more drowsy throughout the course of her stay here in the emergency department. Initially I attributed this to her taking 2 meclizine for her dizziness prior to arrival, and when her blood pressure was already in the 70s. The patient remained drowsy throughout the course of her stay. She would awake sometimes to verbal stimuli, other times requiring painful stimuli. Her blood pressure has waxed and waned, but she had frequent systolic blood pressures in the 80s. I do not have a clear etiology for this patient's moderate low blood pressure, nor for her altered mental status. I will contact the finance broker for evaluation. 01/18/20 00:01 Rich Kay, [employer] finance broker, came and evaluated the patient. She agrees that the patient has altered mental status, but does not see any indication for ICU admission at this time. I am ordering an ABG just to be thorough. Patient had waxing and waning mental status per nursing. At one point she was able to talk to nursing, told her that she was being worked up as an outpatient for low blood pressure. I went back and verify this information and again the patient was extremely somnolent, would only wake to tactile stimulus, and then would only talk for a few seconds. I am still awaiting ABG by respiratory. I will try a small amount of Narcan, as the patient does have significant polypharmacy noted on her history, to see if this changes anything about her mental status. Otherwise, patient's blood pressure is currently modestly improved. We will continue to monitor. 01/18/20 01:35 Patient had no response to Narcan. We ordered an ABG. She in fact reacted very little to obtaining an arterial specimen. ABG revealed a mild acidosis and CO2 retention, but the patient was sleeping with her neck significantly flexed, and given her BMI I do suspect she has some sleep apnea. I am not overly impressed by these numbers. I did have the internal medicine physician on-call come down and evaluate the patient as well. He wanted to talk to her, she woke quickly, and was interactive. She states she feels much better now and would like to go home. I went back into evaluate the patient. She is now normotensive. Her blood pressure is 110/88. She denies any symptoms. She states she is feeling improved, will not be sent at home by herself. She states her cousin moved in w ith her a few weeks ago. I did observe the patient for a small amount of time more and she remained awake and alert. At this point, I do not see any need to admit the patient. She had some transient low blood pressure but a normal lactate. Her renal function is mildly elevated but not remarkably so. It is reasonable for her to follow-up as an outpatient. Again I will monitor her for a short period of time, but if she remains awake and alert, she will be discharged she is to return to the emergency department with worsening or new concerning symptoms of any sort. - Vital Signs Vital signs: Temp Pulse Resp BP Pulse Ox 98.4 F 15 109/57 L 100 01/17/20 16:30 01/18/20 01:15 01/18/20 01:15 01/18/20 01:15 - Laboratory Result Diagrams: 01/17/20 18:18 01/17/20 17:41 Laboratory results interpreted by me: 01/17/20 01/17/20 01/17/20 17:41 17:41 18:18 RBC 3.68 L Hgb 8.6 L Hct 27.2 L MCV 74 L MCH 23.4 L MCHC 31.6 L RDW 20.9 H Carbonic Acid ABG pH ABG pCO2 ABG pO2 ABG HCO3 ABG Total CO2 ABG O2 Saturation Sodium 136.2 L BUN 38 H Creatinine 1.49 H Est GFR ( Amer) 43 L Est GFR (MDRD) Non-Af 36 L Glucose 128 H POC Glucose Lactic Acid 0.6 L Alkaline Phosphatase 190 H Albumin 3.4 L 01/17/20 01/18/20 18:56 01:00 RBC Hgb Hct MCV MCH MCHC RDW Carbonic Acid 1.69 H ABG pH 7.29 L ABG pCO2 56.3 H ABG pO2 137.4 H ABG HCO3 26.5 H ABG Total CO2 28.2 H ABG O2 Saturation 98.4 H Sodium BUN Creatinine Est GFR ( Amer) Est GFR (MDRD) Non-Af Glucose POC Glucose 132 H Lactic Acid Alkaline Phosphatase Albumin - Diagnostic Test Radiology reviewed: Reports reviewed Radiology results interpreted by me: 01/17/20 21:59 Chest X-Ray 01/17/20 16:27 IMPRESSION: Probable moderate pulmonary edema. Head CT 01/17/20 20:44 IMPRESSION: No acute intracranial process is identified. Right maxillary sinusitis. The cause of the patient's mental status change is not identified on this examination. - EKG Interpretation by Me Additional EKG results interpreted by me: 01/18/20 01:37 Sinus mechanism with a rate of 99 bpm. Normal axis and intervals. No acute ST changes concerning for ischemia or infarction. Discharge - Discharge Clinical Impression: Abnormal renal function Hypotension Qualifiers: Hypotension type: idiopathic hypotension Qualified Code(s): I95.0 - Idiopathic hypotension Altered mental status Qualifiers: Altered mental status type: transient alteration of awareness Qualified Code(s): R40.4 - Transient alteration of awareness Condition: Stable Disposition: HOME, SELF-CARE Instructions: Altered Mental Status ([facility]), Hypotension ([facility]) Additional Instructions: No clear cause was found for your symptoms today. Rest. Take your regular medications as prescribed. Follow-up with primary care this week. Return to the emergency department for worsening or new concerning symptoms of any sort. Referrals: MAISHA DUTTON MD [Primary Care Provider] - Follow up as needed
[2020-01-17 18:10] LABS: INTERNATIONAL RATION (INR) 1.09; PROTHROMBIN TIME 14.1 SEC (11.4-15.4)
[2020-01-17 18:15] LABS: ALBUMIN 3.4 g/dL (3.5-5.0); ALKALINE PHOSPHATASE 190 U/L (38-126); ANION GAP 10 (5-19); ASPARTATE AMINO TRANSFERASE 29 U/L (14-36); BILIRUBIN,DIRECT 0.1 mg/dL (0.0-0.4); BILIRUBIN,TOTAL 0.3 mg/dL (0.2-1.3); BLOOD UREA NITROGEN 38 mg/dL (7-20); CALCIUM 8.9 mg/dL (8.4-10.2); CARBON DIOXIDE 26 mmol/L (22-30); CHLORIDE 100 mmol/L (98-107); GLUCOSE 128 mg/dL (75-110); POTASSIUM 4.5 mmol/L (3.6-5.0); TOTAL PROTEIN 7.1 g/dL (6.3-8.2)
[2020-01-17 18:55] LABS: VENOUS BLOOD BASE EXCESS -0.3 mmol/L; VENOUS BLOOD HCO3 26.6 mmol/L (20-32); VENOUS BLOOD PCO2 55.5 mmHg (35-63); VENOUS BLOOD PH 7.3 (7.30-7.42)
[2020-01-17 19:02] LABS: ABSOLUTE BASOPHILS # (AUTO) 0.1 10^3/uL (0.0-0.2); ABSOLUTE EOSINOPHILS # (AUTO) 0.2 10^3/uL (0.0-0.6); ABSOLUTE LYMPHOCYTES (AUTO) 2.5 10^3/uL (0.5-4.7); ABSOLUTE MONOCYTES (AUTO) 0.9 10^3/uL (0.1-1.4); ABSOLUTE NEUT (AUTO) 3.8 10^3/uL (1.7-8.2); BASOPHILS % (AUTO) 0.8 % (0-2); EOSINOPHILS % (AUTO) 2.7 % (0-6); HEMATOCRIT 27.2 % (36.0-47.0); HEMOGLOBIN 8.6 g/dL (12.0-15.5); LYMPHOCYTES % (AUTO) 34.2 % (13-45); MEAN CORPUSCULAR HEMOGLOBIN 23.4 pg (27.0-33.4); MEAN CORPUSCULAR HGB CONC 31.6 g/dL (32.0-36.0); MEAN CORPUSCULAR VOLUME 74 fl (80-97); MONOCYTES % (AUTO) 11.7 % (3-13); RED BLOOD COUNT 3.68 10^6/uL (3.72-5.28); RED CELL DISTRIBUTION WIDTH 20.9 % (11.5-14.0); SEGMENTED NEUTROPHILS % (AUTO) 50.6 % (42-78); TOTAL CELLS COUNTED % (AUTO) 100 %; WHITE BLOOD COUNT 7.4 10^3/uL (4.0-10.5)
[2020-01-17 19:21] LABS: PLATELET COUNT 242 10^3/uL (150-450)
[2020-01-17 19:45] LABS: APPEARANCE,URINE CLEAR; BILIRUBIN,URINE NEGATIVE (NEGATIVE); COLOR,URINE YELLOW; GLUCOSE, URINE NEGATIVE (NEGATIVE); KETONES,URINE NEGATIVE (NEGATIVE); PROTEIN,URINE NEGATIVE (NEGATIVE); URIC ACID CRYSTALS,URINE RARE /HPF; URINE SPECIFIC GRAVITY 1.015; UROBILINOGEN,URINE NEGATIVE mg/dL (<2.0)
--- NOTE | 2020-01-17 21:27 | RADIOLOGY REPORT (SQ) ---
INDICATION: altered mental status. COMPARISON: April 29, 2019 CORRELATION: None TECHNIQUE: Noncontrast spiral axial CT images were obtained from the skull base to vertex. This exam was performed according to our departmental dose-optimization program, which includes automated exposure control, adjustment of the mA and/or kV according to patient size and/or use of iterative reconstruction techniques. FINDINGS: There is no evidence of acute intracranial hemorrhage, midline shift, mass effect or mass lesion. Sue-white differentiation is normal. There is no evidence of acute large territory infarct. Ventricles and extracerebral spaces are within normal limits, for age. The visualized paranasal sinuses demonstrate opacification right maxillary sinus, new from prior. The orbits and eyeballs are unremarkable. The mastoid air cells are clear. Skull base and calvarium appear intact. IMPRESSION: No acute intracranial process is identified. Right maxillary sinusitis. The cause of the patient's mental status change is not identified on this examination.
[2020-01-18] MEDS ORDERED: NALOXONE HCL INJ/PF 0.4 MG/1 ML SDV IV ONE
[2020-01-18 01:06] LABS: ARTERIAL BLOOD BASE EXCESS -0.6 mmol/L; ARTERIAL BLOOD H2CO3 1.69 mmol/L (1.05-1.35); ARTERIAL BLOOD HCO3 26.5 mmol/L (20-24); ARTERIAL BLOOD O2 SATURATION 98.4 % (94-98); ARTERIAL BLOOD PCO2 56.3 mmHg (35-45); ARTERIAL BLOOD PH 7.29 (7.35-7.45); ARTERIAL BLOOD PO2 137.4 mmHg (80-100); ARTERIAL BLOOD TOTAL CO2 28.2 mmol/L (21-25)
[2020-01-18 01:09] LABS: ARTERIAL BLOOD FIO2 28%
[2020-01-18 02:01] LABS: URINE AMPHETAMINES SCREEN NEGATIVE; URINE BARBITURATES SCREEN NEGATIVE; URINE BENZODIAZEPINES SCREEN NEGATIVE; URINE COCAINE SCREEN NEGATIVE; URINE MARIJUANA (THC) SCREEN NEGATIVE; URINE METHADONE SCREEN NEGATIVE; URINE PHENCYCLIDINE SCREEN NEGATIVE
[2020-01-18 03:08] VITALS: BP 128/68
--- NOTE | 2020-01-20 11:13 | EKG REPORT ---
SEVERITY:- NORMAL ECG - SINUS RHYTHM : Confirmed by: Josiah Cline MD 20-Jan-2020 11:13:07
== END 2020-01-18 03:00 | disposition home or self-care (01) ==
LOC: ER 16:05
DX: I95.0 Idiopathic hypotension (principal); R94.4 Abnormal results of kidney function studies; R40.4 Transient alteration of awareness; R07.9 Chest pain, unspecified; R42 Dizziness and giddiness; R05 Cough; R06.02 Shortness of breath; Z88.8 Allergy status to other drugs, medicaments and biological substances; Z88.0 Allergy status to penicillin; Z88.2 Allergy status to sulfonamides; I50.9 Heart failure, unspecified; I25.10 Atherosclerotic heart disease of native coronary artery without angina pectoris; I25.2 Old myocardial infarction; I11.0 Hypertensive heart disease with heart failure; J44.9 Chronic obstructive pulmonary disease, unspecified
CPT/HCPCS: 99285; 96361; 96374; 36415; 87040; 82962; 82803 ×2; 83605; 85025; 85610; 87077; 80053; 81001; 84484; 80307; 87150 ×26; 71045; 70450; J2310; J7030; 87186; 93005; 93010

== ENCOUNTER 2020-03-30 14:32 | Inpatient (IN) | payer MEDICARE, MEDICAID ==
[2020-03-30] MEDS ORDERED: MIDAZOLAM 2 MG/2 ML INJ IV ONE ×2 (14:58→15:11)
[2020-03-30] MEDS ORDERED: MIDAZOLAM 2 MG/2 ML INJ ONE (15:08)
[2020-03-30] MEDS ORDERED: SUCCINYLCHOLINE CHLORIDE INJ 200 MG/10 ML VIAL IV ONE (15:14)
[2020-03-30] MEDS ORDERED: ETOMIDATE INJ/PF 20 MG/10 ML SDV IV ONE ×2 (15:14→19:52)
[2020-03-30] MEDS ORDERED: PROPOFOL 1,000 MG/100 ML INFUS..BTL IV PRN (15:21)
[2020-03-30] MEDS ORDERED: PROPOFOL INJ 200 MG/20 ML VIAL IV ONE (15:40)
--- NOTE | 2020-03-30 16:24 | ER Document Report ---
ED General - General Chief Complaint: Unresponsive Stated Complaint: UNRESPONSIVE Primary Care Provider: MAISHA DUTTON MD [Primary Care Provider] - Follow up as needed Notes: This 59-year-old woman is brought to the emergency department by local EMS with respiratory arrest. Apparently called to the home because of respiratory distress the patient became unresponsive in transport and bag valve respiration effort performed. She has a history of COPD, morbid obesity, hypertension, CHF, CAD, history of NC, asthma, peripheral vascular disease and sleep apnea. There is no history regarding the interval illness or symptoms. TRAVEL OUTSIDE OF THE [place] IN LAST 30 DAYS: No - Related Data Allergies/Adverse Reactions: cephalexin monohydrate [From Keflex] Allergy (Unknown, Verified 03/30/20 15:17) codeine [Codeine] Allergy (Unknown, Verified 03/30/20 15:17) dicyclomine HCl [From Bentyl] Allergy (Unknown, Verified 03/30/20 15:17) hydrocodone bitartrate [From Vicodin] Allergy (Unknown, Verified 03/30/20 15:17) meloxicam [From Mobic] Allergy (Unknown, Verified 03/30/20 15:17) meperidine HCl [From Demerol (PF)] Allergy (Unknown, Verified 03/30/20 15:17) morphine [Morphine] Allergy (Unknown, Verified 03/30/20 15:17) naproxen sodium [From Naprelan CR Dosepak] Allergy (Unknown, Verified 03/30/20 15:17) nitrofurantoin [From Macrobid] Allergy (Unknown, Verified 03/30/20 15:17) pantoprazole sodium [From Protonix] Allergy (Unknown, Verified 03/30/20 15:17) Penicillins Allergy (Unknown, Verified 03/30/20 15:17) Sulfa (Sulfonamide Antibiotics) Allergy (Unknown, Verified 03/30/20 15:17) aspirin Allergy (Verified 03/30/20 15:17) lamotrigine [From Lamictal] Allergy (Verified 03/30/20 15:17) rash Past Medical History - Social History Smoking Status: Unknown if Ever Smoked Family History: Reviewed & Not Pertinent, Hypertension Patient has homicidal ideation: No - Past Medical History Cardiac Medical History: Reports: Hx Congestive Heart Failure, Hx Coronary Artery Disease, Hx Heart Attack, Hx Hypercholesterolemia, Hx Hypertension, Hx Peripheral Vascular Disease Denies: Hx Heart Murmur Pulmonary Medical History: Reports: Hx Asthma, Hx COPD, Hx Sleep Apnea Denies: Hx Bronchitis, Hx Pneumonia, Hx Respiratory Failure, Hx Tuberculosis Neurological Medical History: Reports: Hx Migraine. Denies: Hx Cerebrovascular Accident, Hx Seizures, Hx Parkinson's Disease Endocrine Medical History: Reports: Hx Diabetes Mellitus Type 2, Hx Hyperthyroidism, Hx Hypothyroidism Renal/ Medical History: Reports: Hx Renal Insufficiency. Denies: Hx End Stage Renal Disease, Hx Kidney Stones, Hx Peritoneal Dialysis Malignancy Medical History: GI Medical History: Reports: Hx Gastroesophageal Reflux Disease. Denies: Hx Cirrhosis, Hx Pancreatitis, Hx Ulcer Musculoskeletal Medical History: Reports Hx Arthritis, Reports Hx Fibromyalgia, Denies Hx Multiple Sclerosis, Reports Hx Muscle Weakness, Denies Hx Systemic Lupus Erythematosus Psychiatric Medical History: Reports: Hx Depression, Hx Post Traumatic Stress Disorder Denies: Hx Bipolar Disorder, Hx Schizophrenia Traumatic Medical History: Infectious Medical History: Past Surgical History: Reports: Hx Cardiac Catheterization, Hx Section - x2, Hx Coronary Artery Bypass Graft, Hx Coronary Stent - x2, Hx Hysterectomy, Hx Orthopedic Surgery, Hx Tubal Ligation, Other - multiple colonoscopies for lower GI bleed - Immunizations Hx Diphtheria, Pertussis, Tetanus Vaccination: Yes Hx Pneumococcal Vaccination: 04/02/13 Physical Exam - Vital signs Vitals: Resp 10 L 03/30/20 14:34 - Notes Notes: PHYSICAL EXAMINATION: Physical Exam: General: Morbidly obese female respiratory failure requiring bag valve ventilation. HEENT: NC/AT, pupils equal round and reactive to light, MM moist,nares clear, oropharynx clear, airway patent Neck: supple, no adenopathy, no masses. Good range of motion Lungs: Coarse breath sounds throughout, no wheezes, no rhonchi CVS: Regular rate and rhythm no murmur gallop or rub Abdomen: Soft, active, nontender, no masses, no hepatosplenomegaly Ext: No edema, clubbing or cyanosis. Neuro: Responsive to painful stimuli, making respiratory efforts, no answer to her name being called or to verbal stimuli. Course - Re-evaluation Re-evalutation: 03/30/20 18:22 I discussed the patient with the mend worker Dr. Pang, he will admit the patient to the ICU for further evaluation and management. The patient will need coronavirus testing given a multilobar pneumonia noted on the chest x-ray. Patient was intubated and triple-lumen IV access was obtained in the right femoral vein. 03/30/20 18:28 I originally the central line was attempted in the internal jugular, the wire would not thread on 3 separate occasions twice on the right and once on the left. Patient with very thick neck, good blood return, and possible to thread wire. I discussed the placement of the suture line with the surgeon on-call Dr. Humphrey, he was unable to, because of 2 procedures which began prepared before this patient. He is suggested placing a line in the femoral given the difficulty threading the wire. Right femoral placement was successful. - Vital Signs Vital signs: Temp Pulse Resp BP Pulse Ox 15 143/102 H 100 03/30/20 17:16 03/30/20 17:16 03/30/20 17:16 - Laboratory Result Diagrams: 03/30/20 16:29 03/30/20 16:29 Laboratory results interpreted by me: 03/30/20 03/30/20 03/30/20 16:29 16:29 16:29 WBC 12.4 H Hgb 9.7 L Hct 30.2 L MCV 74 L MCH 23.8 L RDW 20.3 H Saunders % (Auto) 2.6 L Absolute Neuts (auto) 10.1 H Seg Neutrophils % 81.2 H Sodium 135.6 L BUN 34 H Creatinine 2.36 H Est GFR ( Amer) 25 L Est GFR (MDRD) Non-Af 21 L Glucose 127 H Lactic Acid 0.6 L Direct Bilirubin 0.5 H Alkaline Phosphatase 312 H Total Protein 8.4 H Urine Protein Urine Urobilinogen 03/30/20 16:35 WBC Hgb Hct MCV MCH RDW Saunders % (Auto) Absolute Neuts (auto) Seg Neutrophils % Sodium BUN Creatinine Est GFR ( Amer) Est GFR (MDRD) Non-Af Glucose Lactic Acid Direct Bilirubin Alkaline Phosphatase Total Protein Urine Protein 30 H Urine Urobilinogen 2.0 H I have reviewed laboratory data and used this information for the treatment decisions regarding the patient. - Diagnostic Test Radiology reviewed: Image reviewed, Reports reviewed Radiology results interpreted by me: 03/30/20 18:17 Chest x-ray : bilateral fluffy infiltrate (left upper and left lower lobe in filtrate, right upper lobe infiltrate, multi lobar pneumonia. Noted on chest x- ray. 03/30/20 18:18 - EKG Interpretation by Me Rate: Normal - EKG interpreted by Dr. Enriquez: Normal sinus rhythm, rate 90, QT interval 356, normal , no acute ST or T wave abnormalities, no ischemic findings, compared to EKG dated 01/11/2020 there are no acute changes noted. Procedures - Central Line Right Femoral Time completed: 16:45 Consent obtained: No Central line pre-insertion: Sterile PPE donned, Chloraprep applied Central line lumen type: Triple Anesthetic type: 1% Lidocaine Ultrasound guided: Yes CM at insertion site: 12 Line secured with sutures: Yes Central line post-insertion: Blood return from lumens, Biopatch applied, Sutured, Sterile dressing applied Number of attempts: 2 Complications: No - Intubation Orotracheal Airway evaluation: Abnormal 3-3-2 rule, Large tongue, Obese Mallampati Classification: Class 2 Medications: Etomidate, Succinylcholine, Versed Intubation method: Orotracheal Blade type: Zeinab Blade size: 3 Equipment used: Glidescope ETT size: 8.0 ETT secured at: Gums ETT secured at (cm): 23 Breath Sounds after Intubation: Equal End tidal CO2 confirmed: Yes Ventilator settings: SIMV Tidal volume: 400 FiO2: 60 Respirations: 16 PEEP: 5 Critical Care Note - Critical Care Note Total time excluding time spent on procedures (mins): 60 - Critical care time spent obtaining history from patient or surrogate, discussions with consultants, development of treatment plan with patient or surrogate, evaluation of patient's response to treatment, examination of patient, ordering and performing treatments and interventions, ordering and review of laboratory studies, re- evaluation of patient's condition, ordering and review of radiographic studies and review of old charts Discharge - Discharge Clinical Impression: Suspected 2019 novel coronavirus infection, MER (acute kidney injury) Respiratory failure Qualifiers: Chronicity: acute Respiratory failure complication: unspecified whether with hypoxia or hypercapnia Qualified Code(s): J96.00 - Acute respiratory failure, unspecified whether with hypoxia or hypercapnia Pneumonia Qualifiers: Pneumonia type: due to unspecified organism Laterality: bilateral Lung location: unspecified part of lung Qualified Code(s): J18.9 - Pneumonia, unsp ecified organism HTN (hypertension) Qualifiers: Hypertension type: essential hypertension Qualified Code(s): I10 - Essential (primary) hypertension Condition: Critical Disposition: ADMITTED INPATIENT Admitting Provider: Poly ([employer]) Referrals: MAISHA DUTTON MD [Primary Care Provider] - Follow up as needed
[2020-03-30 16:48] LABS: ABSOLUTE EOSINOPHILS # (AUTO) 0.1 10^3/uL (0.0-0.6); ABSOLUTE LYMPHOCYTES (AUTO) 1.9 10^3/uL (0.5-4.7); ABSOLUTE MONOCYTES (AUTO) 0.3 10^3/uL (0.1-1.4); ABSOLUTE NEUT (AUTO) 10.1 10^3/uL (1.7-8.2); BASOPHILS % (AUTO) 0.2 % (0-2); EOSINOPHILS % (AUTO) 0.9 % (0-6); HEMATOCRIT 30.2 % (36.0-47.0); HEMOGLOBIN 9.7 g/dL (12.0-15.5); LYMPHOCYTES % (AUTO) 15.1 % (13-45); MEAN CORPUSCULAR HEMOGLOBIN 23.8 pg (27.0-33.4); MEAN CORPUSCULAR HGB CONC 32.1 g/dL (32.0-36.0); MEAN CORPUSCULAR VOLUME 74 fl (80-97); MONOCYTES % (AUTO) 2.6 % (3-13); PLATELET COUNT 297 10^3/uL (150-450); RED BLOOD COUNT 4.08 10^6/uL (3.72-5.28); RED CELL DISTRIBUTION WIDTH 20.3 % (11.5-14.0); SEGMENTED NEUTROPHILS % (AUTO) 81.2 % (42-78); TOTAL CELLS COUNTED % (AUTO) 100 %; WHITE BLOOD COUNT 12.4 10^3/uL (4.0-10.5)
[2020-03-30 16:57] LABS: INTERNATIONAL RATION (INR) 1.08; PARTIAL THROMBOPLASTIN TIME 29.2 SEC (23.5-35.8); PROTHROMBIN TIME 14.2 SEC (11.4-15.4)
[2020-03-30 17:08] LABS: APPEARANCE,URINE CLOUDY; BILIRUBIN,URINE NEGATIVE (NEGATIVE); COLOR,URINE YELLOW; GLUCOSE, URINE NEGATIVE (NEGATIVE); KETONES,URINE NEGATIVE (NEGATIVE); PROTEIN,URINE 30 mg/dL (NEGATIVE); URINE SPECIFIC GRAVITY 1.015
[2020-03-30 17:10] LABS: ALBUMIN 4.3 g/dL (3.5-5.0); ALKALINE PHOSPHATASE 312 U/L (38-126); ANION GAP 13 (5-19); ASPARTATE AMINO TRANSFERASE 28 U/L (14-36); BILIRUBIN,DIRECT 0.5 mg/dL (0.0-0.4); BILIRUBIN,TOTAL 0.8 mg/dL (0.2-1.3); BLOOD UREA NITROGEN 34 mg/dL (7-20); CALCIUM 9.5 mg/dL (8.4-10.2); CARBON DIOXIDE 25 mmol/L (22-30); CHLORIDE 98 mmol/L (98-107); GLUCOSE 127 mg/dL (75-110); POTASSIUM 4.8 mmol/L (3.6-5.0); TOTAL PROTEIN 8.4 g/dL (6.3-8.2)
[2020-03-30 17:18] LABS: URINE AMPHETAMINES SCREEN NEGATIVE; URINE BARBITURATES SCREEN NEGATIVE; URINE BENZODIAZEPINES SCREEN UNCONFIRMED POSITIVE; URINE COCAINE SCREEN NEGATIVE; URINE MARIJUANA (THC) SCREEN NEGATIVE; URINE METHADONE SCREEN NEGATIVE; URINE PHENCYCLIDINE SCREEN NEGATIVE
[2020-03-30 17:32] LABS: CREATINE KINASE MB 0.93 ng/mL (<4.55); TROPONIN I 0.013 ng/mL
--- NOTE | 2020-03-30 17:51 | EKG REPORT ---
SEVERITY:- NORMAL ECG - SINUS RHYTHM : Confirmed by: Kraig Self MD 30-Mar-2020 17:50:51
--- NOTE | 2020-03-30 17:53 | RADIOLOGY REPORT (SQ) ---
EXAM DESCRIPTION: CHEST SINGLE VIEW IMAGES COMPLETED DATE/TIME: 03/30/2020 3:55 pm REASON FOR STUDY: Shortness of breath COMPARISON: 01/17/2020 EXAM PARAMETERS: NUMBER OF VIEWS: One view. TECHNIQUE: Single frontal radiographic view of the chest acquired. RADIATION DOSE: NA LIMITATIONS: Rotation and kyphotic positioning. FINDINGS: LUNGS AND PLEURA: There is new consolidation in the left upper lobe and left lower lobe wi th probable small left pleural effusion. Evaluation for pneumothorax is limited due to under penetra tion and positioning. Probably patchy consolidation in the right upper lobe. MEDIASTINUM AND HILAR STRUCTURES: No masses. Contour normal. HEART AND VASCULAR STRUCTURES: Heart normal in size. Normal vasculature. BONES: No acute findings. HARDWARE: Endotracheal tube with tip about 1.2 cm above the andrea. Right central venous catheter wi th tip at the cavoatrial junction unchanged. Esophagogastric tube tip and side-hole are below the di aphragm within the stomach. OTHER: No other significant finding. IMPRESSION: New consolidation in the left upper and lower lobe and probable consolidation in the rig ht upper lobe suspicious for multifocal pneumonia. Endotracheal tube is in the lower trachea about 1 .2 cm above the andrea. TECHNICAL DOCUMENTATION: JOB ID: [id number] 2010 [employer]- All Rights Reserved Reading location - IP/workstation name: [email or web address]
[2020-03-30] MEDS ORDERED: AZTREONAM 1 GM in DEXTROSE 5%-WATER 50 ML IV SCH (18:00)
[2020-03-30] MEDS ORDERED: ACETAMINOPHEN 325 MG TABLET PO PRN (18:25)
[2020-03-30] MEDS ORDERED: ONDANSETRON HCL INJ/PF 4 MG/2 ML SDV IV PRN (18:25)
--- NOTE | 2020-03-30 18:25 | CRITICAL CARE ADMISSION REPORT ---
HPI Date:: 03/30/20 Time:: 18:00 Reason for ICU Reason:: Intubated COPD exacerbation Admission Date/Time & PCP: Admission Date/Time: Primary Care Provider: MAISHA DUTTON MD HPI: This patient is a 59 yo woman with a history of COPD, MARIOLA who arrived at the ED essentially unresponsive and was quickly intubated. CXR shows bilateral patchy infiltrates. BNP 29. Impression is COPD with a bilateral PNA. No obvious risk for COVID. ABG pending. She will need an ICU level of care for the ventilator. History obtained from:: Old records and Dr. Enriquez. - Diagnosis/Plan (1) COPD exacerbation Is this a current diagnosis for this admission?: Yes Plan: We do not have a blood gas but her presentation is very C/W hypercapnia (2) Acute respiratory failure with hypercapnia Is this a current diagnosis for this admission?: Yes Plan: Presumed hypercapnia, she will need steroids, nebulizers. (3) Insulin dependent diabetes mellitus Is this a current diagnosis for this admission?: Yes Plan: She will need a SLIDING SCALE (4) CHF (congestive heart failure) Is this a current diagnosis for this admission?: Yes Plan: With a BNP of only 29 I doubt she is in CHF. (5) CAD (coronary artery disease) Qualifiers: Coronary Disease-Associated Artery/Lesion type: [place] artery [place] vs. transplanted heart: [place] heart Associated angina: without angina Qualified Code(s): I25.10 - Atherosclerotic heart disease of [place] coronary artery without angina pectoris Is this a current diagnosis for this admission?: Yes Plan: Inactive. (6) Pneumonia Qualifiers: Laterality: bilateral Is this a current diagnosis for this admission?: Yes Plan: She will need broad spectrum antibiotics. Plan Summary: Admit to the ICU for COPD care and R/O covid. Past Medical History Cardiac Medical History: Reports: Congestive Heart Failure, Coronary Artery Disease, Myocardial Infarction, Hyperlipidema, Hypertension, Peripheral Vascular Disease Denies: Heart Murmur Pulmonary Medical History: Reports: Asthma, Chronic Obstructive Pulmonary Disease (COPD), Sleep Apnea Denies: Bronchitis, Pneumonia, Respiratory Failure, Tuberculosis Neurological Medical History: Reports: Migraine Denies: Seizures Endocrine Medical History: Reports: Diabetes Mellitus Type 2, Hyperthyroidism, Hypothyroidism Renal/ Medical History: Denies: End Stage Renal Disease Malignancy Medical History: GI Medical History: Reports: Gastroesophageal Reflux Disease Denies: Cirrhosis Musculoskeltal Medical History: Reports: Arthritis, Fibromyalgia Psychiatric Medical History: Reports: Depression, Post Traumatic Stress Disorder Denies: Bipolar Disorder Hematology: Reports: Anemia, Bleeding Tendencies Denies: Hemophilia, Sickle Cell Disease Infectious Medical History: Past Surgical History Past Surgical History: Reports: Cardiac Catheterization, Section - x2, Coronary Artery Bypass Graft, Coronary Stent - x2, Hysterectomy, Orthopedic Surgery, Tubal Ligation, Other - multiple colonoscopies for lower GI bleed Denies: Amputation Social/Family History - Social History Smoking Status: Unknown if Ever Smoked Frequency of Alcohol Use: None Hx Recreational Drug Use: No Drugs: None Hx Prescription Drug Abuse: No - Medication/Allergies Home Medications: Albuterol Sulfate [Proair HFA Inhalation Aerosol 8.5 gm MDI] 2 puff IH Q4HP PRN 12/07/18 Amitriptyline HCl [Elavil 150 mg Tablet] 150 mg PO QHS 12/07/18 Atorvastatin Calcium [Lipitor 40 mg Tablet] 40 mg PO QHS 12/07/18 Benztropine Mesylate [Cogentin 1 mg Tablet] 1 mg PO Q12 12/07/18 Budesonide/Formoterol Fumarate [Symbicort HFA 160-4.5 mcg Inhaler 6 gm] 2 puff IH Q12 12/07/18 Bupropion HCl [Wellbutrin Sr 150 mg Tablet] 150 mg PO QPM 12/07/18 Doxepin HCl [Sinequan 10 mg Capsule] 20 mg PO QHS 12/07/18 Duloxetine HCl [Cymbalta] 60 mg PO Q12 12/07/18 Furosemide [Lasix 40 mg Tablet] 40 mg PO BID 12/07/18 Gabapentin [Neurontin 300 mg Capsule] 300 mg PO Q12 12/07/18 Insulin Glargine,Hum.rec.anlog [Lantus Insulin 100 Unit/1 ml 10 ml] 55 units SQ QAM 12/07/18 Insulin Glargine,Hum.rec.anlog [Lantus Insulin 100 Unit/1 ml 10 ml] 65 units SQ QPM 12/07/18 Insulin Lispro [Humalog Kwikpen U-100] 0 units SQ .PERSLIDINGSCALE 12/07/18 Irbesartan [Avapro] 150 mg PO QAM 12/07/18 Levothyroxine Sodium 50 mcg PO Q6AM 12/07/18 Nitroglycerin [Nitro-Dur 5 mg (0.2 mg/Hr) Transdermal Patch] 1 patch TD DAILY 12/07/18 Omeprazole 40 mg PO Q12 12/07/18 Oxycodone HCl/Acetaminophen [Percocet 10-325 mg Tablet] 1 tab PO Q8HP PRN 12/07/18 Saxagliptin HCl [Onglyza] 2.5 mg PO QAM 12/07/18 Topiramate [Topamax] 150 mg PO Q12 12/07/18 Meclizine HCl [Antivert 25 mg Tablet] 25 mg PO TIDP PRN 04/30/19 Triamcinolone Acetonide 1 applic TP DAILY MDD face 04/30/19 Triamcinolone Acetonide [Aristocort 0.1% Ointment] 1 applic TP BID MDD legs 04/30/19 Naloxegol Oxalate [Movantik 25 mg Tablet] 25 mg PO DAILY 06/20/19 Allergies/Adverse Reactions: cephalexin monohydrate [From Keflex] Allergy (Unknown, Verified 03/30/20 15:17) codeine [Codeine] Allergy (Unknown, Verified 03/30/20 15:17) dicyclomine HCl [From Bentyl] Allergy (Unknown, Verified 03/30/20 15:17) hydrocodone bitartrate [From Vicodin] Allergy (Unknown, Verified 03/30/20 15:17) meloxicam [From Mobic] Allergy (Unknown, Verified 03/30/20 15:17) meperidine HCl [From Demerol (PF)] Allergy (Unknown, Verified 03/30/20 15:17) morphine [Morphine] Allergy (Unknown, Verified 03/30/20 15:17) naproxen sodium [From Naprelan CR Dosepak] Allergy (Unknown, Verified 03/30/20 15:17) nitrofurantoin [From Macrobid] Allergy (Unknown, Verified 03/30/20 15:17) pantoprazole sodium [From Protonix] Allergy (Unknown, Verified 03/30/20 15:17) Penicillins Allergy (Unknown, Verified 03/30/20 15:17) Sulfa (Sulfonamide Antibiotics) Allergy (Unknown, Verified 03/30/20 15:17) aspirin Allergy (Verified 03/30/20 15:17) lamotrigine [From Lamictal] Allergy (Verified 03/30/20 15:17) rash Review of Systems ROS unobtainable: Due to endotracheal tube Physical Exam Vital Signs: Temp Pulse Resp BP Pulse Ox 15 143/102 H 100 03/30/20 17:16 03/30/20 17:16 03/30/20 17:16 Intake & Output 03/29/20 03/30/20 03/31/20 06:59 06:59 06:59 Intake Total 13 Balance 13 Weight 142.882 kg Weight/Height Weight 142.882 kg Height 5 ft 9 in General appearance: PRESENT: no acute distress, morbidly obese Head exam: PRESENT: atraumatic, normocephalic Eye exam: PRESENT: conjunctiva pink, EOMI, PERRLA. ABSENT: scleral icterus Ear exam: PRESENT: normal external ear exam Respiratory exam: PRESENT: decreased breath sounds, rhonchi - Bilateral L.R. Cardiovascular exam: PRESENT: RRR, tachycardia. ABSENT: diastolic murmur, rubs, systolic murmur GI/Abdominal exam: PRESENT: normal bowel sounds, soft. ABSENT: distended, guarding, mass, organolmegaly, rebound, tenderness Rectal exam: PRESENT: deferred Gentrourinary exam: PRESENT: indwelling catheter Extremities exam: PRESENT: +2 edema Neurological exam: PRESENT: altered, other - Sedated. Skin exam: PRESENT: dry, intact, warm. ABSENT: cyanosis, rash Tubes/Lines: PRESENT: Endotracheal Tube, Central Line, Nasogastic Tube Laboratory/Radiographs Laboratory Results: 03/30/20 16:29 03/30/20 16:29 03/30/20 03/30/20 03/30/20 16:29 16:29 16:29 WBC 12.4 H RBC 4.08 Hgb 9.7 L Hct 30.2 L MCV 74 L MCH 23.8 L MCHC 32.1 RDW 20.3 H Plt Count 297 Seg Neutrophils % 81.2 H Sodium 135.6 L Potassium 4.8 Chloride 98 Carbon Dioxide 25 Anion Gap 13 BUN 34 H Creatinine 2.36 H Est GFR ( Amer) 25 L Glucose 127 H Lactic Acid 0.6 L Calcium 9.5 Total Bilirubin 0.8 AST 28 Alkaline Phosphatase 312 H Total Protein 8.4 H Albumin 4.3 Urine Color Urine Appearance Urine pH Ur Specific [place] Urine Protein Urine Glucose (UA) Urine Ketones Urine Blood Urine RBC (Auto) 03/30/20 16:35 WBC RBC Hgb Hct MCV MCH MCHC RDW Plt Count Seg Neutrophils % Sodium Potassium Chloride Carbon Dioxide Anion Gap BUN Creatinine Est GFR ( Amer) Glucose Lactic Acid Calcium Total Bilirubin AST Alkaline Phosphatase Total Protein Albumin Urine Color YELLOW Urine Appearance CLOUDY Urine pH 5.0 Ur Specific [place] 1.015 Urine Protein 30 H Urine Glucose (UA) NEGATIVE Urine Ketones NEGATIVE Urine Blood NEGATIVE Urine RBC (Auto) 4 03/30/20 03/30/20 03/30/20 16:29 16:29 16:29 Creatine Kinase 114 CK-MB (CK-2) 0.93 Troponin I 0.013 NT-Pro-B Natriuret Pep 29 Impressions: Chest X-Ray 03/30/20 16:22 IMPRESSION: New consolidation in the left upper and lower lobe and probable consolidation in the right upper lobe suspicious for multifocal pneumonia. Endotracheal tube is in the lower trachea about 1.2 cm above the andrea. EKG: SR All labs, radiographs, diagnostic studies and EKGs were personally reviewed: Yes In addition, reports of radiographic and diagnostic studies were read: Yes Critical Time Critical Time (minutes): 40 -: The care of a critically ill patient is dynamic. This note represents a static moment in the admission process. Orders and treatments may be given simultaneously and urgently, and time is not sales representative uniforms of the treatment process. This patient requires Critical Care secondary to life threatening organ or limb dysfunction. Without Critical Care services, the patient is at risk for increased mortality and morbidity.
[2020-03-30] MEDS ORDERED: PANTOPRAZOLE SODIUM 40 MG VIAL IV SCH (18:30)
[2020-03-30] MEDS ORDERED: PHARMACY COMMUNICATION ORDER MC NR (18:30)
[2020-03-30] MEDS ORDERED: DEXTROSE 40% GEL 15 GM TUBE PO PRN ×2 (18:35)
[2020-03-30] MEDS ORDERED: GLUCAGON,HUMAN RECOMB 1 MG INJ IM PRN (18:35)
[2020-03-30] MEDS ORDERED: DEXTROSE 50%-WATER 25 GM/50 ML DISP.SYRIN IV PRN ×2 (18:35)
[2020-03-30 18:37] LABS: ARTERIAL BLOOD BASE EXCESS -3.6 mmol/L; ARTERIAL BLOOD H2CO3 2.18 mmol/L (1.05-1.35); ARTERIAL BLOOD HCO3 25.9 mmol/L (20-24); ARTERIAL BLOOD PO2 193.2 mmHg (80-100); ARTERIAL BLOOD TOTAL CO2 28.1 mmol/L (21-25)
[2020-03-30 18:38] LABS: ARTERIAL BLOOD FIO2 60%
[2020-03-30 18:41] LABS: ARTERIAL BLOOD PCO2 72.5 mmHg (35-45); ARTERIAL BLOOD PH 7.17 (7.35-7.45)
[2020-03-30] MEDS ORDERED: METHYLPREDNISOLONE INJ 40 MG/1 ML SDV IV SCH (18:45)
[2020-03-30] MEDS: INSULIN REG, HUMAN 100 UNIT/ML 3 ML VIAL (PYX) SUBCUT SCH (18:51)
[2020-03-30] MEDS: METHYLPREDNISOLONE INJ 125 MG/2 ML SDV IV SCH (19:36)
[2020-03-30] MEDS ORDERED: SUCCINYLCHOLINE CHLORIDE INJ 200 MG/10 ML VIAL ONE (19:52)
[2020-03-30] MEDS: IPRATROPIUM/ALBUTEROL 0.5-2.5 MG/3 ML AMPUL NEB SCH (20:41)
[2020-03-30] MEDS: HEPARIN SOD (PORCINE) 5,000 UNIT/ML 1 ML VIAL SUBCUT SCH (22:10)
[2020-03-31] MEDS: PROPOFOL 1,000 MG/100 ML INFUS..BTL IV PRN ×6 (00:23→21:45)
[2020-03-31] MEDS: INSULIN REG, HUMAN 100 UNIT/ML 3 ML VIAL (PYX) SUBCUT SCH ×5 (00:35→23:14)
[2020-03-31] MEDS: IPRATROPIUM/ALBUTEROL 0.5-2.5 MG/3 ML AMPUL NEB SCH ×4 (02:33→20:27)
[2020-03-31 03:25] LABS: ARTERIAL BLOOD BASE EXCESS -2.2 mmol/L; ARTERIAL BLOOD H2CO3 2.04 mmol/L (1.05-1.35); ARTERIAL BLOOD HCO3 26.6 mmol/L (20-24); ARTERIAL BLOOD O2 SATURATION 98.7 % (94-98); ARTERIAL BLOOD PCO2 67.8 mmHg (35-45); ARTERIAL BLOOD PH 7.21 (7.35-7.45); ARTERIAL BLOOD TOTAL CO2 28.7 mmol/L (21-25)
[2020-03-31 03:27] LABS: ARTERIAL BLOOD FIO2 50%
[2020-03-31] MEDS: RINGERS SOLUTION,LACTATED 1,000 ML IV PRN ×2 (06:05→17:58)
[2020-03-31] MEDS: HEPARIN SOD (PORCINE) 5,000 UNIT/ML 1 ML VIAL SUBCUT SCH ×3 (06:05→22:59)
[2020-03-31] MEDS: METHYLPREDNISOLONE INJ 125 MG/2 ML SDV IV SCH ×2 (06:06→17:59)
[2020-03-31 06:30] LABS: ABSOLUTE MONOCYTES (AUTO) 0.3 10^3/uL (0.1-1.4); BASOPHILS % (AUTO) 0.1 % (0-2); HEMATOCRIT 29.2 % (36.0-47.0); HEMOGLOBIN 9.4 g/dL (12.0-15.5); LYMPHOCYTES % (AUTO) 9.6 % (13-45); MEAN CORPUSCULAR HEMOGLOBIN 23.4 pg (27.0-33.4); MEAN CORPUSCULAR HGB CONC 32.1 g/dL (32.0-36.0); MEAN CORPUSCULAR VOLUME 73 fl (80-97); MONOCYTES % (AUTO) 2.7 % (3-13); PLATELET COUNT 275 10^3/uL (150-450); RED CELL DISTRIBUTION WIDTH 19.4 % (11.5-14.0); SEGMENTED NEUTROPHILS % (AUTO) 87.6 % (42-78); TOTAL CELLS COUNTED % (AUTO) 100 %; WHITE BLOOD COUNT 10.3 10^3/uL (4.0-10.5)
[2020-03-31 06:54] LABS: ANION GAP 12 (5-19); BLOOD UREA NITROGEN 29 mg/dL (7-20); CARBON DIOXIDE 25 mmol/L (22-30); CHLORIDE 101 mmol/L (98-107); GLUCOSE 259 mg/dL (75-110); POTASSIUM 4.9 mmol/L (3.6-5.0)
[2020-03-31 07:48] LABS: ALBUMIN 3.8 g/dL (3.5-5.0); ANION GAP 14 (5-19); BLOOD UREA NITROGEN 29 mg/dL (7-20); CALCIUM 9.9 mg/dL (8.4-10.2); CARBON DIOXIDE 24 mmol/L (22-30); CHLORIDE 101 mmol/L (98-107); GLUCOSE 260 mg/dL (75-110); PHOSPHORUS 4.3 mg/dL (2.5-4.5); POTASSIUM 4.9 mmol/L (3.6-5.0)
[2020-03-31] MEDS ORDERED: BUSPIRONE HCL 10 MG TABLET PO PRN (09:34)
[2020-03-31] MEDS ORDERED: TOPIRAMATE 25 MG PO SCH (10:00)
[2020-03-31] MEDS ORDERED: NITROGLYCERIN 5 MG (0.2 MG/HR) PATCH.TD24 TD SCH (10:00)
[2020-03-31] MEDS ORDERED: (PENDING PHARMACY ID) (Naloxegol Oxalate 25 MG) PO SCH (10:00)
--- NOTE | 2020-03-31 10:43 | PDOC CRITICAL CARE PROG REPORT ---
General Date:: 03/31/20 ICU Day:: 2 Ventilator Day:: 2 Hospital Day:: 2 Resuscitation Status: Full Code Events in the past 12 to 24 Hours:: Able to wean vent. Awake and responsive. Review of systems relevant to events:: Pulmonary. Reason for ICU Addmission:: Intubated COPD exacerbation - Medications: Medications reviewed and adjusted accordingly: Yes Vasopressors:: None Sedation:: Diprivan. Physical Exam Vital Signs: Temp Pulse Resp BP Pulse Ox 98.6 F 108 H 16 147/59 H 100 03/31/20 09:13 03/31/20 10:00 03/31/20 10:00 03/31/20 10:00 03/31/20 10:00 Intake & Output 03/30/20 03/31/20 04/01/20 06:59 06:59 06:59 Intake Total 134 Output Total 3125 285 Balance -2991 -285 Weight 141.1 kg Weight/Height Weight 141.1 kg Height 5 ft 9 in General appearance: PRESENT: no acute distress, morbidly obese Head exam: PRESENT: atraumatic, normocephalic Eye exam: PRESENT: conjunctiva pink, EOMI, PERRLA. ABSENT: scleral icterus Ear exam: PRESENT: normal external ear exam Mouth exam: PRESENT: moist, tongue midline Respiratory exam: PRESENT: clear to auscultation christine. ABSENT: rales, rhonchi, wheezes Cardiovascular exam: PRESENT: RRR. ABSENT: diastolic murmur, rubs, systolic murmur GI/Abdominal exam: PRESENT: normal bowel sounds, soft. ABSENT: distended, guarding, mass, organolmegaly, rebound, tenderness Rectal exam: PRESENT: deferred Extremities exam: PRESENT: full ROM, other - Edema and venous stasis of lower legs.. ABSENT: calf tenderness, clubbing, pedal edema Musculoskeletal exam: PRESENT: full ROM Neurological exam: PRESENT: altered, other - Sedated Psychiatric exam: PRESENT: agitated Skin exam: PRESENT: dry, intact, warm. ABSENT: cyanosis, rash Tubes/Lines: PRESENT: Endotracheal Tube, Central Line, Nasogastic Tube Laboratory/Radiographs Laboratory Results: 03/31/20 05:55 03/31/20 05:55 03/30/20 03/30/20 03/30/20 16:29 16:29 16:29 WBC 12.4 H RBC 4.08 Hgb 9.7 L Hct 30.2 L MCV 74 L MCH 23.8 L MCHC 32.1 RDW 20.3 H Plt Count 297 Seg Neutrophils % 81.2 H Carbonic Acid HCO3/H2CO3 Ratio ABG pH ABG pCO2 ABG pO2 ABG HCO3 ABG O2 Saturation ABG Base Excess FiO2 Sodium 135.6 L Potassium 4.8 Chloride 98 Carbon Dioxide 25 Anion Gap 13 BUN 34 H Creatinine 2.36 H Est GFR ( Amer) 25 L Glucose 127 H Lactic Acid 0.6 L Calcium 9.5 Phosphorus Total Bilirubin 0.8 AST 28 Alkaline Phosphatase 312 H Total Protein 8.4 H Albumin 4.3 Urine Color Urine Appearance Urine pH Ur Specific [place] Urine Protein Urine Glucose (UA) Urine Ketones Urine Blood Urine RBC (Auto) 03/30/20 03/30/20 03/31/20 16:35 18:11 02:27 WBC RBC Hgb Hct MCV MCH MCHC RDW Plt Count Seg Neutrophils % Carbonic Acid 2.18 H 2.04 H HCO3/H2CO3 Ratio 11:1 13:1 ABG pH 7.17 L* 7.21 L ABG pCO2 72.5 H* 67.8 H ABG pO2 193.2 H 163.0 H ABG HCO3 25.9 H 26.6 H ABG O2 Saturation 99.0 H 98.7 H ABG Base Excess -3.6 -2.2 FiO2 60% 50% Sodium Potassium Chloride Carbon Dioxide Anion Gap BUN Creatinine Est GFR ( Amer) Glucose Lactic Acid Calcium Phosphorus Total Bilirubin AST Alkaline Phosphatase Total Protein Albumin Urine Color YELLOW Urine Appearance CLOUDY Urine pH 5.0 Ur Specific [place] 1.015 Urine Protein 30 H Urine Glucose (UA) NEGATIVE Urine Ketones NEGATIVE Urine Blood NEGATIVE Urine RBC (Auto) 4 03/31/20 03/31/20 03/31/20 05:55 05:55 05:55 WBC 10.3 RBC 4.00 Hgb 9.4 L Hct 29.2 L MCV 73 L MCH 23.4 L MCHC 32.1 RDW 19.4 H Plt Count 275 Seg Neutrophils % 87.6 H Carbonic Acid HCO3/H2CO3 Ratio ABG pH ABG pCO2 ABG pO2 ABG HCO3 ABG O2 Saturation ABG Base Excess FiO2 Sodium 138.1 138.8 Potassium 4.9 4.9 Chloride 101 101 Carbon Dioxide 25 24 Anion Gap 12 14 BUN 29 H 29 H Creatinine 1.36 H 1.37 H Est GFR ( Amer) 48 L 48 L Glucose 259 H 260 H Lactic Acid Calcium 10.0 9.9 Phosphorus 4.3 Total Bilirubin AST Alkaline Phosphatase Total Protein Albumin 3.8 Urine Color Urine Appearance Urine pH Ur Specific [place] Urine Protein Urine Glucose (UA) Urine Ketones Urine Blood Urine RBC (Auto) 03/30/20 03/30/20 03/30/20 16:29 16:29 16:29 Creatine Kinase 114 CK-MB (CK-2) 0.93 Troponin I 0.013 NT-Pro-B Natriuret Pep 29 Impressions: Chest X-Ray 03/30/20 16:22 IMPRESSION: New consolidation in the left upper and lower lobe and probable consolidation in the right upper lobe suspicious for multifocal pneumonia. Endotracheal tube is in the lower trachea about 1.2 cm above the andrea. EKG: SR All labs, radiographs, diagnostic studies and EKGs were personally reviewed: Yes In addition, reports of radiographic and diagnostic studies were read: Yes Assessment and Plan - Diagnosis (1) COPD exacerbation Is this a current diagnosis for this admission?: Yes Plan: She is not wheezing and lungs do not sound tight. Continue nebulizers, IV steroids until extubated then taper. (2) Acute respiratory failure with hypercapnia Is this a current diagnosis for this admission?: Yes Plan: ABG from this AM pending. Vent being weaned. (3) Insulin dependent diabetes mellitus Is this a current diagnosis for this admission?: Yes Plan: Will restart her regular meds when eating. Sliding scale until then (4) CHF (congestive heart failure) Is this a current diagnosis for this admission?: Yes Plan: Not an issue. (5) CAD (coronary artery disease) Qualifiers: Coronary Disease-Associated Artery/Lesion type: [place] artery [place] vs. transplanted heart: [place] heart Associated angina: without angina Qualified Code(s): I25.10 - Atherosclerotic heart disease of [place] coronary artery without angina pectoris Is this a current diagnosis for this admission?: Yes Plan: Inactive. (6) Pneumonia Qualifiers: Laterality: bilateral Is this a current diagnosis for this admission?: Yes Plan: Right now she has no fever or WBC count. On meropenem for now. Plan Summary: Wean vent and hope to extubate today. Critical Time Critical Time (minutes): 35 Level of Care: ICU Anticipated discharge: Home Anticipated DC Timeframe: Other -: 1. The care of a critical patient is a dynamic process. This note is a primary care sales representative synopsis but static in nature. The timeframe for treatments given in order is not necessarily the actual time these treatments may have been done. 2. This patient requires critical care secondary to ongoing requirements for therapy not offered or safe outside the critical care environment. Transfer to a lower level of care will result in altered life or limb morbidity and mortality. 3. Multidisciplinary rounds completed. 4. ABCDE bundle addressed.
[2020-03-31] MEDS ORDERED: (PENDING PHARMACY ID) (Bupropion Hcl [Wellbutrin Sr 150 Mg Tablet] 150 MG) PO SCH ×2 (11:00→18:00)
[2020-03-31] MEDS: BENZTROPINE MESYLATE 1 MG TABLET PO SCH ×2 (11:04→22:57)
[2020-03-31] MEDS: FUROSEMIDE 40 MG TABLET PO SCH ×2 (11:04→17:59)
[2020-03-31] MEDS: MEROPENEM 1 GM in NORMAL SALINE 50 ML IV SCH ×2 (11:09→17:58)
[2020-03-31] MEDS: LURASIDONE HCL 40 MG TABLET PO SCH (11:10)
[2020-03-31] MEDS: FLUTICASONE/VILANTEROL 200-25 MCG/DOSE IH SCH (11:15)
[2020-03-31] MEDS: GABAPENTIN 300 MG CAPSULE PO SCH ×2 (14:11→22:56)
[2020-03-31 20:48] LABS: ARTERIAL BLOOD BASE EXCESS 3.7 mmol/L; ARTERIAL BLOOD H2CO3 1.43 mmol/L (1.05-1.35); ARTERIAL BLOOD O2 SATURATION 95.6 % (94-98); ARTERIAL BLOOD PCO2 47.5 mmHg (35-45); ARTERIAL BLOOD PO2 78.6 mmHg (80-100); ARTERIAL BLOOD TOTAL CO2 30.4 mmol/L (21-25)
[2020-03-31 20:50] LABS: ARTERIAL BLOOD FIO2 30%
[2020-03-31] MEDS ORDERED: AMITRIPTYLINE HCL 75 MG TABLET PO SCH (22:00)
[2020-03-31] MEDS ORDERED: ATORVASTATIN CALCIUM 40 MG TABLET PO SCH (22:00)
[2020-03-31] MEDS ORDERED: AMITRIPTYLINE HCL 150 MG PO SCH (22:00)
[2020-03-31] MEDS ORDERED: QUETIAPINE FUMARATE 100 MG TABLET PO SCH (22:00)
[2020-03-31] MEDS ORDERED: TRAZODONE HCL 50 MG TABLET PO SCH (22:00)
[2020-03-31] MEDS ORDERED: TOPIRAMATE 25 MG TABLET PO SCH (22:00)
[2020-03-31] MEDS: FAMOTIDINE INJ/PF 20 MG/2 ML SDV IV SCH (22:59)
[2020-03-31] MEDS: DULOXETINE HCL 30 MG CAPSULE.DR PO SCH (23:01)
[2020-04-01] MEDS ORDERED: DEXTROSE 40% GEL 15 GM TUBE NG PRN ×2 (00:30)
[2020-04-01] MEDS ORDERED: ACETAMINOPHEN 325 MG TABLET NG PRN (00:30)
[2020-04-01] MEDS ORDERED: BUSPIRONE HCL 10 MG TABLET NG PRN (00:30)
[2020-04-01] MEDS: PROPOFOL 1,000 MG/100 ML INFUS..BTL IV PRN ×3 (01:05→07:00)
[2020-04-01] MEDS: MEROPENEM 1 GM in NORMAL SALINE 50 ML IV SCH ×3 (01:06→18:05)
[2020-04-01] MEDS: IPRATROPIUM/ALBUTEROL 0.5-2.5 MG/3 ML AMPUL NEB SCH ×4 (02:11→20:34)
[2020-04-01 05:03] LABS: HEMATOCRIT 27.7 % (36.0-47.0); HEMOGLOBIN 8.9 g/dL (12.0-15.5); MEAN CORPUSCULAR HEMOGLOBIN 23.3 pg (27.0-33.4); MEAN CORPUSCULAR HGB CONC 32.2 g/dL (32.0-36.0); MEAN CORPUSCULAR VOLUME 72 fl (80-97); PLATELET COUNT 295 10^3/uL (150-450); RED BLOOD COUNT 3.83 10^6/uL (3.72-5.28); RED CELL DISTRIBUTION WIDTH 19.9 % (11.5-14.0); WHITE BLOOD COUNT 11.5 10^3/uL (4.0-10.5)
[2020-04-01] MEDS: RINGERS SOLUTION,LACTATED 1,000 ML IV PRN (05:05)
[2020-04-01] MEDS: INSULIN REG, HUMAN 100 UNIT/ML 3 ML VIAL (PYX) SUBCUT SCH ×3 (05:25→18:06)
[2020-04-01] MEDS: METHYLPREDNISOLONE INJ 125 MG/2 ML SDV IV SCH ×2 (05:26→18:04)
[2020-04-01] MEDS: HEPARIN SOD (PORCINE) 5,000 UNIT/ML 1 ML VIAL SUBCUT SCH ×3 (05:26→22:11)
[2020-04-01] MEDS: GABAPENTIN 300 MG CAPSULE NG SCH ×3 (05:28→22:10)
[2020-04-01] MEDS: LEVOTHYROXINE SODIUM 0.05 MG TABLET NG SCH (05:28)
[2020-04-01 05:37] LABS: ALBUMIN 3.5 g/dL (3.5-5.0); ANION GAP 9 (5-19); BLOOD UREA NITROGEN 24 mg/dL (7-20); CALCIUM 9.9 mg/dL (8.4-10.2); CARBON DIOXIDE 29 mmol/L (22-30); CHLORIDE 102 mmol/L (98-107); GLUCOSE 292 mg/dL (75-110); PHOSPHORUS 3.3 mg/dL (2.5-4.5); POTASSIUM 4.4 mmol/L (3.6-5.0)
[2020-04-01] MEDS ORDERED: (PENDING PHARMACY ID) (Naloxegol Oxalate 25 MG) PO SCH (08:00)
[2020-04-01] MEDS ORDERED: (PENDING PHARMACY ID) (Irbesartan [Avapro] 150 MG) PO SCH (08:00)
--- NOTE | 2020-04-01 08:19 | PDOC CRITICAL CARE PROG REPORT ---
General Date:: 04/01/20 ICU Day:: 2 Ventilator Day:: 2 Hospital Day:: 2 Resuscitation Status: Full Code Events in the past 12 to 24 Hours:: ABG normalized. Ready to extubate Review of systems relevant to events:: Pulmonary Reason for ICU Addmission:: Intubated COPD exacerbation - Medications: Medications reviewed and adjusted accordingly: Yes Vasopressors:: None Sedation:: Diprivan to be turned off. Physical Exam Vital Signs: Temp Pulse Resp BP Pulse Ox 97.5 F 101 H 28 H 150/74 H 89 L 04/01/20 08:00 04/01/20 08:00 04/01/20 08:00 04/01/20 08:00 04/01/20 08:00 Intake & Output 03/31/20 04/01/20 04/02/20 06:59 06:59 06:59 Intake Total 134 2729 100 Output Total 3125 4295 450 Balance -2991 -1566 -350 Weight 141.1 kg 138.4 kg Weight/Height Weight 138.4 kg Height 5 ft 9 in General appearance: PRESENT: no acute distress, morbidly obese Head exam: PRESENT: atraumatic, normocephalic Eye exam: PRESENT: conjunctiva pink, EOMI, PERRLA. ABSENT: scleral icterus Ear exam: PRESENT: normal external ear exam Mouth exam: PRESENT: moist, tongue midline Respiratory exam: PRESENT: clear to auscultation christine. ABSENT: rales, rhonchi, wheezes Cardiovascular exam: PRESENT: RRR, tachycardia - Mild at 90-100.. ABSENT: diastolic murmur, rubs, systolic murmur GI/Abdominal exam: PRESENT: normal bowel sounds, soft. ABSENT: distended, guarding, mass, organolmegaly, rebound, tenderness Rectal exam: PRESENT: deferred Gentrourinary exam: PRESENT: indwelling catheter Extremities exam: PRESENT: +2 edema, other - Venous stasis Musculoskeletal exam: PRESENT: normal inspection Neurological exam: PRESENT: altered, other - Sedated Skin exam: PRESENT: dry, intact, warm. ABSENT: cyanosis, rash Tubes/Lines: PRESENT: Endotracheal Tube, Nasogastic Tube Laboratory/Radiographs Laboratory Results: 04/01/20 04:48 04/01/20 04:48 03/31/20 04/01/20 04/01/20 20:30 04:48 04:48 WBC 11.5 H RBC 3.83 Hgb 8.9 L Hct 27.7 L MCV 72 L MCH 23.3 L MCHC 32.2 RDW 19.9 H Plt Count 295 Carbonic Acid 1.43 H HCO3/H2CO3 Ratio 20:1 ABG pH 7.40 ABG pCO2 47.5 H ABG pO2 78.6 L ABG HCO3 29.0 H ABG O2 Saturation 95.6 ABG Base Excess 3.7 FiO2 30% Sodium 140.0 Potassium 4.4 Chloride 102 Carbon Dioxide 29 Anion Gap 9 BUN 24 H Creatinine 0.89 Est GFR ( Amer) > 60 Glucose 292 H Calcium 9.9 Phosphorus 3.3 Albumin 3.5 03/30/20 03/30/20 03/30/20 16:29 16:29 16:29 Creatine Kinase 114 CK-MB (CK-2) 0.93 Troponin I 0.013 NT-Pro-B Natriuret Pep 29 Impressions: Chest X-Ray 03/30/20 16:22 IMPRESSION: New consolidation in the left upper and lower lobe and probable consolidation in the right upper lobe suspicious for multifocal pneumonia. Endotracheal tube is in the lower trachea about 1.2 cm above the andrea. All labs, radiographs, diagnostic studies and EKGs were personally reviewed: Yes In addition, reports of radiographic and diagnostic studies were read: Yes Assessment and Plan - Diagnosis (1) COPD exacerbation Is this a current diagnosis for this admission?: Yes Plan: No wheezing. Resolved (2) Acute respiratory failure with hypercapnia Is this a current diagnosis for this admission?: Yes Plan: ABG shows no hypercapnia. (3) Insulin dependent diabetes mellitus Is this a current diagnosis for this admission?: Yes Plan: Needs a bit better control. Restart lantus. (4) CHF (congestive heart failure) Is this a current diagnosis for this admission?: Yes Plan: Not active. (5) CAD (coronary artery disease) Qualifiers: Coronary Disease-Associated Artery/Lesion type: [place] artery [place] vs. tr ansplanted heart: [place] heart Associated angina: without angina Qualified Code(s): I25.10 - Atherosclerotic heart disease of [place] coronary artery without angina pectoris Is this a current diagnosis for this admission?: Yes Plan: Inactive. (6) Pneumonia Qualifiers: Laterality: bilateral Is this a current diagnosis for this admission?: Yes Plan: If present it is mild. Plan Summary: Proceed to extubation. Critical Time Critical Time (minutes): 35 Level of Care: ICU Anticipated discharge: Home Anticipated DC Timeframe: Other -: 1. The care of a critical patient is a dynamic process. This note is a rep resentative synopsis but static in nature. The timeframe for treatments given in order is not necessarily the actual time these treatments may have been done. 2. This patient requires critical care secondary to ongoing requirements for therapy not offered or safe outside the critical care environment. Transfer to a lower level of care will result in altered life or limb morbidity and mortality. 3. Multidisciplinary rounds completed. 4. ABCDE bundle addressed.
[2020-04-01] MEDS: LOSARTAN POTASSIUM 50 MG TABLET NG SCH (09:24)
[2020-04-01] MEDS: FLUTICASONE/VILANTEROL 200-25 MCG/DOSE IH SCH (09:24)
[2020-04-01] MEDS: FUROSEMIDE 40 MG TABLET NG SCH ×2 (09:25→18:06)
[2020-04-01] MEDS: LURASIDONE HCL 40 MG TABLET PO SCH (09:25)
[2020-04-01] MEDS: DULOXETINE HCL 30 MG CAPSULE.DR PO SCH ×2 (09:25→22:08)
[2020-04-01] MEDS: BENZTROPINE MESYLATE 1 MG TABLET NG SCH ×2 (09:25→22:10)
[2020-04-01] MEDS: BUPROPION HCL 75 MG TABLET NG SCH ×2 (09:26→22:11)
[2020-04-01] MEDS: NITROGLYCERIN 5 MG (0.2 MG/HR) PATCH.TD24 TD SCH (09:26)
[2020-04-01] MEDS: TOPIRAMATE 25 MG TABLET NG SCH ×2 (09:26→22:11)
[2020-04-01] MEDS: FAMOTIDINE INJ/PF 20 MG/2 ML SDV IV SCH (09:29)
[2020-04-01] MEDS ORDERED: (PENDING PHARMACY ID) (Oxycodone Hcl/Acetaminophen [Percocet 10-325 Mg Tablet] 1 TAB) PO PRN (12:45)
[2020-04-01] MEDS ORDERED: ALBUTEROL SULFATE HFA (90 MCG/PUFF) 8 GM MDI (1 MDI/ER DISP) IH PRN (12:45)
[2020-04-01] MEDS ORDERED: CYANOCOBALAMIN (VITAMIN B-12) INJ 1000 MCG/1 ML VIAL IM SCH (12:45)
[2020-04-01] MEDS ORDERED: RINGERS SOLUTION,LACTATED 1,000 ML IV PRN (12:49)
[2020-04-01] MEDS: OXYCODONE HCL IR 5 MG TABLET PO PRN (18:05)
[2020-04-01] MEDS: OXYCODONE-ACETAMINOPHEN 5-325 MG TABLET PO PRN (18:06)
--- NOTE | 2020-04-01 18:12 | Progress Note ---
Provider Note Provider Note: Case discussed with welder/installer who states patient will be sent to medical floor from ICU. Prior discussion, patient was reportedly brought in with severe respiratory failure, intubated, extubated today. Currently continued on meropenem for likely aspiration pneumonia. She also has severe COPD exacerbation currently on Solu-Medrol with plans to taper the prednisone. She is morbidly obese and has a right femoral central line as well as a port. She is on many psychiatric medications as well as narcotics reportedly. She is in the hospital frequently per records. We will accept the patient to the hospitalist service. Please change the attending to my name when she arrives on the floor.
[2020-04-01] MEDS ORDERED: TRAZODONE HCL 50 MG TABLET NG SCH (22:00)
[2020-04-01] MEDS ORDERED: INSULIN GLARGINE,HUM.REC.ANLOG 1,000 UNIT/10 ML VIAL SUBCUT SCH (22:00)
[2020-04-01] MEDS ORDERED: ATORVASTATIN CALCIUM 40 MG TABLET NG SCH (22:00)
[2020-04-01] MEDS ORDERED: QUETIAPINE FUMARATE 100 MG TABLET NG SCH (22:00)
[2020-04-01] MEDS ORDERED: AMITRIPTYLINE HCL 75 MG TABLET NG SCH (22:00)
[2020-04-02] MEDS: IPRATROPIUM/ALBUTEROL 0.5-2.5 MG/3 ML AMPUL NEB SCH ×4 (01:53→20:12)
[2020-04-02] MEDS: INSULIN REG, HUMAN 100 UNIT/ML 3 ML VIAL (PYX) SUBCUT SCH ×4 (02:28→17:17)
[2020-04-02] MEDS: MEROPENEM 1 GM in NORMAL SALINE 50 ML IV SCH ×2 (02:59→09:54)
[2020-04-02] MEDS: LEVOTHYROXINE SODIUM 0.05 MG TABLET NG SCH (05:57)
[2020-04-02] MEDS: METHYLPREDNISOLONE INJ 125 MG/2 ML SDV IV SCH (05:57)
[2020-04-02] MEDS: GABAPENTIN 300 MG CAPSULE NG SCH ×2 (05:57→13:51)
[2020-04-02] MEDS: HEPARIN SOD (PORCINE) 5,000 UNIT/ML 1 ML VIAL SUBCUT SCH ×3 (05:59→22:08)
[2020-04-02] MEDS ORDERED: INSULIN GLARGINE,HUM.REC.ANLOG 1,000 UNIT/10 ML VIAL SUBCUT SCH (08:00)
[2020-04-02] MEDS: DULOXETINE HCL 30 MG CAPSULE.DR PO SCH ×2 (09:49→22:07)
[2020-04-02] MEDS: BENZTROPINE MESYLATE 1 MG TABLET NG SCH (09:49)
[2020-04-02] MEDS: BUPROPION HCL 75 MG TABLET NG SCH (09:49)
[2020-04-02] MEDS: FUROSEMIDE 40 MG TABLET NG SCH (09:50)
[2020-04-02] MEDS: LURASIDONE HCL 40 MG TABLET PO SCH (09:51)
[2020-04-02] MEDS: LOSARTAN POTASSIUM 50 MG TABLET NG SCH (09:51)
[2020-04-02] MEDS: NITROGLYCERIN 5 MG (0.2 MG/HR) PATCH.TD24 TD SCH (09:51)
[2020-04-02] MEDS ORDERED: ONDANSETRON HCL INJ/PF 4 MG/2 ML SDV IV PRN (10:30)
[2020-04-02] MEDS: OXYCODONE-ACETAMINOPHEN 5-325 MG TABLET PO PRN ×2 (11:29→18:33)
[2020-04-02] MEDS: TOPIRAMATE 25 MG TABLET NG SCH (11:38)
--- NOTE | 2020-04-02 13:16 | PDOC PROGRESS REPORT ---
Subjective Subjective:: Case discussed with bodybuilder who states patient will be sent to medical floor from ICU. Prior discussion, patient was reportedly brought in with severe respiratory failure, intubated, extubated today. Currently continued on meropenem for likely aspiration pneumonia. She also has severe COPD exacerbation currently on Solu-Medrol with plans to taper the prednisone. She is morbidly obese and has a right femoral central line as well as a port. She is on many psychiatric medications as well as narcotics reportedly. She is in the hospital frequently per records. 04/02/2020 Patient is awake alert today with oxygen saturation well-maintained on nasal cannula. She repeatedly requests to go home although I explained to her that we need to wait for blood cultures to finalize as they seem to be growing some ba cteria currently. Potentially this is merely a contaminant. Blood sugar is elevated into the mid and upper 200s although she has just recently been started back on her Lantus. I have increased the dosing of her morning and nighttime Lantus. She is continued on meropenem since 03/31 for suspected aspiration pneumonia. COVID testing has been negative earlier in her admission. Other than generalized fatigue and weakness, she has no new complaints today. I expect she will need SNF at discharge if she is agreeable to this placement. Reason For Visit: INTUBATED, COPD EXAC, BILATERAL PNA Physical Exam Vital Signs: Temp Pulse Resp BP Pulse Ox 98.2 F 78 18 158/92 H 100 04/02/20 08:44 04/02/20 08:44 04/02/20 08:44 04/02/20 08:44 04/02/20 08:44 Intake & Output 04/01/20 04/02/20 04/03/20 06:59 06:59 06:59 Intake Total 2729 2227 Output Total 4295 1150 Balance -1566 1077 Weight 138.4 kg 141.4 kg General appearance: PRESENT: no acute distress, morbidly obese, well-developed, well-nourished Head exam: PRESENT: atraumatic, normocephalic Eye exam: PRESENT: conjunctiva pink. ABSENT: scleral icterus Mouth exam: PRESENT: moist Respiratory exam: PRESENT: rales - Scant bilateral. ABSENT: rhonchi, wheezes Cardiovascular exam: PRESENT: RRR. ABSENT: diastolic murmur, rubs, systolic murmur GI/Abdominal exam: PRESENT: normal bowel sounds, soft. ABSENT: distended, guarding, mass, organolmegaly, rebound, tenderness Neurological exam: PRESENT: alert, awake, oriented to person, oriented to place, oriented to time, oriented to situation Psychiatric exam: PRESENT: appropriate affect, normal mood Skin exam: PRESENT: dry, intact, warm Results Laboratory Results: 04/01/20 04:48 04/01/20 04:48 03/30/20 16:29 Blood Blood Culture - Final Staphylococcus Haemolyticus 03/30/20 17:39 Blood Blood Culture (PCR) - Final 03/30/20 03/30/20 03/30/20 16:29 16:29 16:29 Creatine Kinase 114 CK-MB (CK-2) 0.93 Troponin I 0.013 NT-Pro-B Natriuret Pep 29 Impressions: Chest X-Ray 03/30/20 16:22 IMPRESSION: New consolidation in the left upper and lower lobe and probable consolidation in the right upper lobe suspicious for multifocal pneumonia. Endotracheal tube is in the lower trachea about 1.2 cm above the andrea. Assessment and Plan - Diagnosis (1) Respiratory arrest Is this a current diagnosis for this admission?: Yes Plan: Found by EMS unresponsive in her home. Intubated, later extubated on 04/01, continued on supplemental oxygen and home CPAP settings Gradual consistent improvement towards baseline breathing status (2) Multifocal pneumonia Is this a current diagnosis for this admission?: Yes Plan: Possibly aspiration but unclear etiology Blood culture 1/2 bottles growing coag negative staph, likely contaminant COVID-19 negative Seen on low quality portable single view chest x-ray on admission Repeat chest x-ray this time as PA lateral Meropenem transitioned to Levaquin (noted multiple antibiotic allergies) to complete total 5-day course (3) Acute kidney injury Is this a current diagnosis for this admission?: Yes Plan: Likely due to respiratory arrest and pneumonia Maintain map of 65 or higher Resolved (4) COPD exacerbation Is this a current diagnosis for this admission?: Yes Plan: Given Solu-Medrol in ICU, transitioned to prednisone oral Scheduled duo nebs, transition to oral inhalers when able Gradual improvement (5) HTN (hypertension) Qualifiers: Hypertension type: essential hypertension Qualified Code(s): I10 - Essential (primary) hypertension Is this a current diagnosis for this admission?: Yes Plan: Home medications May not be at goal while on steroids (6) Altered mental status Is this a current diagnosis for this admission?: Yes Plan: Acute metabolic encephalopathy due to pneumonia respiratory failure Resolved 2 baseline (7) Chronic kidney disease Qualifiers: Chronic kidney disease stage: stage 2 (mild) Qualified Code(s): N18.2 - Chronic kidney disease, stage 2 (mild) Is this a current diagnosis for this admission?: Yes (8) Chronic schizoaffective disorder Is this a current diagnosis for this admission?: Yes Plan: Home meds continued (9) Chronic systolic heart failure Is this a current diagnosis for this admission?: Yes Plan: No exacerbation Home meds continued (10) Insulin dependent diabetes mellitus Is this a current diagnosis for this admission?: Yes (11) Bipolar 1 disorder, depressed Is this a current diagnosis for this admission?: Yes (12) Chronic pain syndrome Is this a current diagnosis for this admission?: Yes (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 Is this a current diagnosis for this admission?: Yes (14) PTSD (post-traumatic stress disorder) Is this a current diagnosis for this admission?: Yes (15) MARIOLA (obstructive sleep apnea) Is this a current diagnosis for this admission?: Yes Plan: CPAP nightly - Time Time Spent with patient: 35 or more minutes Medications reviewed and adjusted accordingly: Yes Anticipated Discharge Disposition: Care Home Facility Anticipated Discharge Timeframe: within 72 hours - Inpatient Certification Based on my medical assessment, after consideration of the patient's comorbidities, presenting symptoms, or acuity I expect that the services needed warrant INPATIENT care.: Yes I certify that my determination is in accordance with my understanding of Medicare's requirements for reasonable and necessary INPATIENT services [42 CFR 412.3e].: Yes Medical Necessity: Significant Comorbidiites Make Outpatient Treatment Too Risky, Need Close Monitoring Due to Risk of Patient Decompensation, Need for IV Antibiotics, Risk of Complication if Not Cared For in Hospital, Risk of Diagnosis Which Will Require Inpatient Eval/Care/Monitoring
[2020-04-02] MEDS ORDERED: ACETAMINOPHEN 325 MG TABLET PO PRN (15:00)
[2020-04-02] MEDS ORDERED: DEXTROSE 40% GEL 15 GM TUBE PO PRN ×2 (15:00)
[2020-04-02] MEDS ORDERED: BUSPIRONE HCL 10 MG TABLET PO PRN (15:00)
[2020-04-02] MEDS: FUROSEMIDE 40 MG TABLET PO SCH (17:17)
[2020-04-02] MEDS: AMITRIPTYLINE HCL 75 MG TABLET PO SCH (22:06)
[2020-04-02] MEDS: GABAPENTIN 300 MG CAPSULE PO SCH (22:07)
[2020-04-02] MEDS: QUETIAPINE FUMARATE 100 MG TABLET PO SCH (22:07)
[2020-04-02] MEDS: TOPIRAMATE 25 MG TABLET PO SCH (22:07)
[2020-04-02] MEDS: BUPROPION HCL 75 MG TABLET PO SCH (22:07)
[2020-04-02] MEDS: BENZTROPINE MESYLATE 1 MG TABLET PO SCH (22:08)
[2020-04-02] MEDS: INSULIN GLARGINE,HUM.REC.ANLOG 1,000 UNIT/10 ML VIAL SUBCUT SCH (22:08)
[2020-04-02] MEDS: ATORVASTATIN CALCIUM 40 MG TABLET PO SCH (22:08)
[2020-04-02] MEDS: TRAZODONE HCL 50 MG TABLET PO SCH (22:08)
[2020-04-03] MEDS: OXYCODONE HCL IR 5 MG TABLET PO PRN ×2 (00:23→08:50)
[2020-04-03] MEDS: IPRATROPIUM/ALBUTEROL 0.5-2.5 MG/3 ML AMPUL NEB SCH ×4 (02:05→21:25)
[2020-04-03] MEDS: INSULIN REG, HUMAN 100 UNIT/ML 3 ML VIAL (PYX) SUBCUT SCH ×4 (02:39→18:26)
[2020-04-03] MEDS: GABAPENTIN 300 MG CAPSULE PO SCH ×3 (06:42→23:17)
[2020-04-03] MEDS: HEPARIN SOD (PORCINE) 5,000 UNIT/ML 1 ML VIAL SUBCUT SCH ×3 (06:42→22:59)
[2020-04-03] MEDS: LEVOTHYROXINE SODIUM 0.05 MG TABLET PO SCH (06:43)
[2020-04-03] MEDS ORDERED: INSULIN GLARGINE,HUM.REC.ANLOG 1,000 UNIT/10 ML VIAL SUBCUT SCH (08:00)
[2020-04-03] MEDS ORDERED: INFLUENZA QUAD (6MOS+) 2020-21 VAC 0.5 ML SYR IM ONE (08:00)
[2020-04-03] MEDS: NITROGLYCERIN 5 MG (0.2 MG/HR) PATCH.TD24 TD SCH (10:16)
[2020-04-03] MEDS: FUROSEMIDE 40 MG TABLET PO SCH ×2 (10:18→18:39)
[2020-04-03] MEDS: DULOXETINE HCL 30 MG CAPSULE.DR PO SCH ×2 (10:19→23:16)
[2020-04-03] MEDS: BUPROPION HCL 75 MG TABLET PO SCH ×2 (10:20→23:18)
[2020-04-03] MEDS: PREDNISONE 20 MG TABLET PO SCH (10:20)
[2020-04-03] MEDS: TOPIRAMATE 25 MG TABLET PO SCH ×2 (10:20→23:18)
[2020-04-03] MEDS: LEVOFLOXACIN 750 MG TABLET PO SCH (10:20)
[2020-04-03] MEDS: BENZTROPINE MESYLATE 1 MG TABLET PO SCH ×2 (10:20→23:16)
[2020-04-03] MEDS: LURASIDONE HCL 40 MG TABLET PO SCH (10:21)
[2020-04-03] MEDS: LOSARTAN POTASSIUM 50 MG TABLET PO SCH (10:21)
[2020-04-03] MEDS ORDERED: INSULIN GLARGINE,HUM.REC.ANLOG 1,000 UNIT/10 ML VIAL (PYX) SUBCUT ONE (10:30)
--- NOTE | 2020-04-03 15:32 | PDOC PROGRESS REPORT ---
Subjective Subjective:: Case discussed with repair clerk who states patient will be sent to medical floor from ICU. Prior discussion, patient was reportedly brought in with severe respiratory failure, intubated, extubated today. Currently continued on meropenem for likely aspiration pneumonia. She also has severe COPD exacerbation currently on Solu-Medrol with plans to taper the prednisone. She is morbidly obese and has a right femoral central line as well as a port. She is on many psychiatric medications as well as narcotics reportedly. She is in the hospital frequently per records. 04/02/2020 Patient is awake alert today with oxygen saturation well-maintained on nasal cannula. She repeatedly requests to go home although I explained to her that we need to wait for blood cultures to finalize as they seem to be growing some ba cteria currently. Potentially this is merely a contaminant. Blood sugar is elevated into the mid and upper 200s although she has just recently been started back on her Lantus. I have increased the dosing of her morning and nighttime Lantus. She is continued on meropenem since 03/31 for suspected aspiration pneumonia. COVID testing has been negative earlier in her admission. Other than generalized fatigue and weakness, she has no new complaints today. I expect she will need SNF at discharge if she is agreeable to this placement. 04/03/2020 Patient had some diarrhea in her bed today and she is being cleaned up. She again is asking about going home and I told her I think she is much too weak to do so and would benefit greatly from a brief stay at a rehab facility, probably 2 or 3 weeks. She states she is in agreement with this plan. Her blood sugar was persistently elevated overnight but seems to be trending better today. Blood cultures are growing staph hemolyticus from 1/2 bottles, likely contaminant. Patient was on meropenem prior to leaving the ICU as of 03/31, transitioned to Levaquin on 04/02, plan to stop tomorrow to complete 5-day course. Reason For Visit: INTUBATED, COPD EXAC, BILATERAL PNA Physical Exam Vital Signs: Temp Pulse Resp BP Pulse Ox 98.0 F 96 16 126/74 H 97 04/03/20 11:33 04/03/20 14:00 04/03/20 14:00 04/03/20 11:33 04/03/20 14:00 Intake & Output 10/07/2204/03/20 04/04/20 06:59 06:59 06:59 Intake Total 2227 50 Output Total 1150 Balance 1077 50 Weight 141.4 kg 143.5 kg Exam: General appearance: PRESENT: no acute distress, morbidly obese, well-developed, well-nourished, states she just had a bowel movement on herself Head exam: PRESENT: atraumatic, normocephalic Eye exam: PRESENT: conjunctiva pink. ABSENT: scleral icterus Mouth exam: PRESENT: moist Respiratory exam: PRESENT: rales - Scant bilateral. ABSENT: rhonchi, wheezes Cardiovascular exam: PRESENT: RRR. ABSENT: diastolic murmur, rubs, systolic murmur GI/Abdominal exam: PRESENT: normal bowel sounds, soft. ABSENT: distended, guarding, mass, organolmegaly, rebound, tenderness Neurological exam: PRESENT: alert, awake, oriented to person, oriented to place, oriented to time, oriented to situation Psychiatric exam: PRESENT: appropriate affect, normal mood Skin exam: PRESENT: dry, intact, warm Results Laboratory Results: 04/01/20 04:48 04/01/20 04:48 03/30/20 16:29 Blood Blood Culture - Final Staphylococcus Haemolyticus 03/30/20 03/30/20 03/30/20 16:29 16:29 16:29 Creatine Kinase 114 CK-MB (CK-2) 0.93 Troponin I 0.013 NT-Pro-B Natriuret Pep 29 Impressions: Chest X-Ray 03/30/20 16:22 IMPRESSION: New consolidation in the left upper and lower lobe and probable consolidation in the right upper lobe suspicious for multifocal pneumonia. Endotracheal tube is in the lower trachea about 1.2 cm above the andrea. Assessment and Plan - Diagnosis (1) Respiratory arrest Is this a current diagnosis for this admission?: Yes Plan: Found by EMS unresponsive in her home. Intubated, later extubated on 04/01, continued on supplemental oxygen and home CPAP settings Gradual consistent improvement towards baseline breathing status (2) Multifocal pneumonia Is this a current diagnosis for this admission?: Yes Plan: Possibly aspiration but unclear etiology Blood culture 1/2 bottles growing coag negative staph, likely contaminant COVID-19 negative Seen on low quality portable single view chest x-ray on admission Repeat chest x-ray this time as PA lateral Meropenem transitioned to Levaquin (noted multiple antibiotic allergies) to complete total 5-day course (3) Acute kidney injury Is this a current diagnosis for this admission?: Yes Plan: Likely due to respiratory arrest and pneumonia Maintain map of 65 or higher Resolved (4) COPD exacerbation Is this a current diagnosis for this admission?: Yes Plan: Given Solu-Medrol in ICU, transitioned to prednisone oral Scheduled duo nebs, transition to oral inhalers when able Gradual improvement (5) HTN (hypertension) Qualifiers: Hypertension type: essential hypertension Qualified Code(s): I10 - Essential (primary) hypertension Is this a current diagnosis for this admission?: Yes (6) Altered mental status Is this a current diagnosis for this admission?: Yes Plan: Acute metabolic encephalopathy due to pneumonia respiratory failure Resolved to baseline (7) Chronic kidney disease Qualifiers: Chronic kidney disease stage: stage 2 (mild) Qualified Code(s): N18.2 - Chronic kidney disease, stage 2 (mild) Is this a current diagnosis for this admission?: Yes (8) Chronic schizoaffective disorder Is this a current diagnosis for this admission?: Yes (9) Chronic systolic heart failure Is this a current diagnosis for this admission?: Yes (10) Insulin dependent diabetes mellitus Is this a current diagnosis for this admission?: Yes (11) Bipolar 1 disorder, depressed Is this a current diagnosis for this admission?: Yes (12) Chronic pain syndrome Is this a current diagnosis for this admission?: Yes (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 Is this a current diagnosis for this admission?: Yes (14) PTSD (post-traumatic stress disorder) Is this a current diagnosis for this admission?: Yes (15) MARIOLA (obstructive sleep apnea) Is this a current diagnosis for this admission?: Yes - Time Time Spent with patient: 15-24 minutes Medications reviewed and adjusted accordingly: Yes Anticipated Discharge Disposition: Care Home Facility Anticipated Discharge Timeframe: within 48 hours - Inpatient Certification Based on my medical assessment, after consideration of the patient's com orbidities, presenting symptoms, or acuity I expect that the services needed warrant INPATIENT care.: Yes I certify that my determination is in accordance with my understanding of Medicare's requirements for reasonable and necessary INPATIENT services [42 CFR 412.3e].: Yes Medical Necessity: Significant Comorbidiites Make Outpatient Treatment Too Risky, Need Close Monitoring Due to Risk of Patient Decompensation, Need for Nebulizer Therapy and Monitoring of Response, Need for IV Antibiotics, Risk of Complication if Not Cared For in Hospital, Risk of Diagnosis Which Will Require Inpatient Eval/Care/Monitoring
[2020-04-03] MEDS: INSULIN GLARGINE,HUM.REC.ANLOG 1,000 UNIT/10 ML VIAL SUBCUT SCH (23:16)
[2020-04-03] MEDS: TRAZODONE HCL 50 MG TABLET PO SCH (23:16)
[2020-04-03] MEDS: AMITRIPTYLINE HCL 75 MG TABLET PO SCH (23:16)
[2020-04-03] MEDS: QUETIAPINE FUMARATE 100 MG TABLET PO SCH (23:17)
[2020-04-03] MEDS: ATORVASTATIN CALCIUM 40 MG TABLET PO SCH (23:17)
[2020-04-04] MEDS: INSULIN REG, HUMAN 100 UNIT/ML 3 ML VIAL (PYX) SUBCUT SCH ×5 (00:10→23:19)
[2020-04-04] MEDS: IPRATROPIUM/ALBUTEROL 0.5-2.5 MG/3 ML AMPUL NEB SCH ×4 (02:11→20:56)
[2020-04-04] MEDS: HEPARIN SOD (PORCINE) 5,000 UNIT/ML 1 ML VIAL SUBCUT SCH ×3 (05:58→21:36)
[2020-04-04] MEDS: LEVOTHYROXINE SODIUM 0.05 MG TABLET PO SCH (05:58)
[2020-04-04] MEDS: GABAPENTIN 300 MG CAPSULE PO SCH ×3 (05:58→21:36)
[2020-04-04 09:44] LABS: ANION GAP 11 (5-19); BLOOD UREA NITROGEN 31 mg/dL (7-20); CALCIUM 9.3 mg/dL (8.4-10.2); CARBON DIOXIDE 32 mmol/L (22-30); CHLORIDE 93 mmol/L (98-107); GLUCOSE 180 mg/dL (75-110); POTASSIUM 4.4 mmol/L (3.6-5.0)
[2020-04-04 09:45] LABS: ABSOLUTE BASOPHILS # (AUTO) 0.1 10^3/uL (0.0-0.2); ABSOLUTE EOSINOPHILS # (AUTO) 0.3 10^3/uL (0.0-0.6); ABSOLUTE LYMPHOCYTES (AUTO) 2.8 10^3/uL (0.5-4.7); ABSOLUTE MONOCYTES (AUTO) 1.2 10^3/uL (0.1-1.4); ABSOLUTE NEUT (AUTO) 11.7 10^3/uL (1.7-8.2); BASOPHILS % (AUTO) 0.4 % (0-2); EOSINOPHILS % (AUTO) 1.6 % (0-6); HEMATOCRIT 30.1 % (36.0-47.0); HEMOGLOBIN 9.7 g/dL (12.0-15.5); LYMPHOCYTES % (AUTO) 17.6 % (13-45); MEAN CORPUSCULAR HEMOGLOBIN 23.1 pg (27.0-33.4); MEAN CORPUSCULAR VOLUME 72 fl (80-97); MONOCYTES % (AUTO) 7.2 % (3-13); PLATELET COUNT 311 10^3/uL (150-450); RED BLOOD COUNT 4.17 10^6/uL (3.72-5.28); SEGMENTED NEUTROPHILS % (AUTO) 73.2 % (42-78); TOTAL CELLS COUNTED % (AUTO) 100 %
[2020-04-04] MEDS: PREDNISONE 20 MG TABLET PO SCH (10:09)
[2020-04-04] MEDS: BENZTROPINE MESYLATE 1 MG TABLET PO SCH ×2 (10:09→21:37)
[2020-04-04] MEDS: TOPIRAMATE 25 MG TABLET PO SCH ×2 (10:09→21:36)
[2020-04-04] MEDS: BUPROPION HCL 75 MG TABLET PO SCH ×2 (10:09→21:37)
[2020-04-04] MEDS: FUROSEMIDE 40 MG TABLET PO SCH ×2 (10:09→17:35)
[2020-04-04] MEDS: DULOXETINE HCL 30 MG CAPSULE.DR PO SCH ×2 (10:09→21:36)
[2020-04-04] MEDS: LOSARTAN POTASSIUM 50 MG TABLET PO SCH ×2 (10:10→13:06)
[2020-04-04] MEDS: LEVOFLOXACIN 750 MG TABLET PO SCH (10:10)
[2020-04-04] MEDS: INSULIN GLARGINE,HUM.REC.ANLOG 1,000 UNIT/10 ML VIAL SUBCUT SCH ×2 (12:49→21:37)
[2020-04-04] MEDS: NITROGLYCERIN 5 MG (0.2 MG/HR) PATCH.TD24 TD SCH (13:17)
[2020-04-04] MEDS: LURASIDONE HCL 40 MG TABLET PO SCH (16:54)
[2020-04-04] MEDS: OXYCODONE HCL IR 5 MG TABLET PO PRN (17:34)
[2020-04-04] MEDS: OXYCODONE-ACETAMINOPHEN 5-325 MG TABLET PO PRN (17:35)
--- NOTE | 2020-04-04 17:56 | PDOC PROGRESS REPORT ---
Subjective Progress Note for:: 04/04/20 Subjective:: Patient says she feels better. She wants to go home however she does realize that she is still unable to ambulate and she is pretty weak Reason For Visit: INTUBATED, COPD EXAC, BILATERAL PNA Physical Exam Vital Signs: Temp Pulse Resp BP Pulse Ox 98.8 F 82 16 122/52 L 100 04/04/20 16:20 04/04/20 16:20 04/04/20 16:20 04/04/20 16:20 04/04/20 16:20 Intake & Output 04/03/20 04/04/20 04/05/20 06:59 06:59 06:59 Intake Total 50 Output Total 1000 Balance 50 -1000 Weight 143.5 kg 143.5 kg General appearance: PRESENT: no acute distress, morbidly obese, well-nourished Head exam: PRESENT: atraumatic Eye exam: PRESENT: EOMI, PERRLA. ABSENT: scleral icterus Mouth exam: PRESENT: moist, tongue midline Neck exam: ABSENT: carotid bruit, JVD, lymphadenopathy, thyromegaly Respiratory exam: PRESENT: clear to auscultation christine, unlabored. ABSENT: rales, rhonchi, wheezes Cardiovascular exam: PRESENT: RRR, +S1, +S2. ABSENT: diastolic murmur, rubs, systolic murmur Pulses: PRESENT: normal dorsalis pedis pul GI/Abdominal exam: PRESENT: normal bowel sounds, soft. ABSENT: distended, guarding, mass, organolmegaly, rebound, tenderness Rectal exam: PRESENT: deferred Extremities exam: PRESENT: full ROM. ABSENT: calf tenderness, clubbing, pedal edema Neurological exam: PRESENT: alert, awake, oriented to person, oriented to place, oriented to time, oriented to situation, CN II-XII grossly intact. ABSENT: motor sensory deficit Psychiatric exam: PRESENT: appropriate affect, normal mood. ABSENT: homicidal i deation, suicidal ideation Skin exam: PRESENT: dry, intact, warm. ABSENT: cyanosis, rash Results Laboratory Results: 04/04/20 09:05 04/04/20 09:05 04/04/20 04/04/20 09:05 09:05 WBC 16.0 H RBC 4.17 Hgb 9.7 L Hct 30.1 L MCV 72 L MCH 23.1 L MCHC 32.0 RDW 19.0 H Plt Count 311 Seg Neutrophils % 73.2 Sodium 136.2 L Potassium 4.4 Chloride 93 L Carbon Dioxide 32 H Anion Gap 11 BUN 31 H Creatinine 0.99 Est GFR ( Amer) > 60 Glucose 180 H Calcium 9.3 03/30/20 17:39 Blood Blood Culture (PCR) - Final 03/30/20 17:39 Blood Blood Culture - Final Staphylococcus Auricularis 03/30/20 03/30/20 03/30/20 16:29 16:29 16:29 Creatine Kinase 114 CK-MB (CK-2) 0.93 Troponin I 0.013 NT-Pro-B Natriuret Pep 29 Impressions: Chest X-Ray 03/30/20 16:22 IMPRESSION: New consolidation in the left upper and lower lobe and probable consolidation in the right upper lobe suspicious for multifocal pneumonia. Endotracheal tube is in the lower trachea about 1.2 cm above the andrea. Assessment and Plan - Diagnosis (1) Acute kidney injury Is this a current diagnosis for this admission?: Yes Plan: Likely due to respiratory arrest and pneumonia Maintain map of 65 or higher Resolved (2) Acute respiratory failure with hypercapnia Is this a current diagnosis for this admission?: Yes Plan: ABG shows no hypercapnia. (3) CAD (coronary artery disease) Qualifiers: Coronary Disease-Associated Artery/Lesion type: [place] artery [place] vs. transplanted heart: [place] heart Associated angina: without angina Qualified Code(s): I25.10 - Atherosclerotic heart disease of [place] coronary artery without angina pectoris Is this a current diagnosis for this admission?: Yes (4) CHF (congestive heart failure) Is this a current diagnosis for this admission?: Yes Plan: Not active. (5) MARIOLA (obstructive sleep apnea) Is this a current diagnosis for this admission?: Yes Plan: CPAP nightly - Plan Summary Summary: Patient was intubated and subsequently extubated. She is currently being treated for aspiration pneumonia. She also has severe COPD, obesity hypoventilation syndrome. She had wants to go home however she is too weak at this time that she probably needs a few weeks of rehab which she has agreed to and is afebrile. She has completed a course of antibiotics - Time Time Spent with patient: 15-24 minutes Anticipated Discharge Disposition: Shelter Facility Anticipated Discharge Timeframe: within 72 hours
[2020-04-04] MEDS: QUETIAPINE FUMARATE 100 MG TABLET PO SCH (21:36)
[2020-04-04] MEDS: ATORVASTATIN CALCIUM 40 MG TABLET PO SCH (21:37)
[2020-04-04] MEDS: TRAZODONE HCL 50 MG TABLET PO SCH (21:37)
[2020-04-04] MEDS: AMITRIPTYLINE HCL 75 MG TABLET PO SCH (21:38)
[2020-04-05] MEDS: OXYCODONE HCL IR 5 MG TABLET PO PRN ×3 (01:19→21:10)
[2020-04-05] MEDS: OXYCODONE-ACETAMINOPHEN 5-325 MG TABLET PO PRN ×3 (01:20→21:11)
[2020-04-05] MEDS: IPRATROPIUM/ALBUTEROL 0.5-2.5 MG/3 ML AMPUL NEB SCH ×4 (01:57→20:55)
[2020-04-05] MEDS: INSULIN REG, HUMAN 100 UNIT/ML 3 ML VIAL (PYX) SUBCUT SCH ×3 (05:41→17:57)
[2020-04-05] MEDS: HEPARIN SOD (PORCINE) 5,000 UNIT/ML 1 ML VIAL SUBCUT SCH ×3 (05:42→21:09)
[2020-04-05] MEDS: GABAPENTIN 300 MG CAPSULE PO SCH ×3 (05:42→21:10)
[2020-04-05] MEDS: LEVOTHYROXINE SODIUM 0.05 MG TABLET PO SCH (05:58)
[2020-04-05] MEDS: NITROGLYCERIN 5 MG (0.2 MG/HR) PATCH.TD24 TD SCH (10:13)
[2020-04-05] MEDS: TOPIRAMATE 25 MG TABLET PO SCH ×2 (10:15→21:09)
[2020-04-05] MEDS: DULOXETINE HCL 30 MG CAPSULE.DR PO SCH ×2 (10:15→21:09)
[2020-04-05] MEDS: LEVOFLOXACIN 750 MG TABLET PO SCH (10:15)
[2020-04-05] MEDS: PREDNISONE 20 MG TABLET PO SCH (10:15)
[2020-04-05] MEDS: BENZTROPINE MESYLATE 1 MG TABLET PO SCH ×2 (10:16→21:10)
[2020-04-05] MEDS: LURASIDONE HCL 40 MG TABLET PO SCH (10:16)
[2020-04-05] MEDS: FUROSEMIDE 40 MG TABLET PO SCH ×2 (10:16→17:56)
[2020-04-05] MEDS: LOSARTAN POTASSIUM 50 MG TABLET PO SCH (13:04)
[2020-04-05] MEDS: INSULIN GLARGINE,HUM.REC.ANLOG 1,000 UNIT/10 ML VIAL SUBCUT SCH ×2 (13:04→21:10)
[2020-04-05] MEDS: BUPROPION HCL 75 MG TABLET PO SCH ×2 (13:16→21:09)
--- NOTE | 2020-04-05 14:50 | PDOC PROGRESS REPORT ---
Subjective Progress Note for:: 04/05/20 Subjective:: Patient says she feels better. She wants to go home however she does realize that she is still unable to ambulate and she is pretty weak 04/05 patient has no new complaints. Reason For Visit: INTUBATED, COPD EXAC, BILATERAL PNA Physical Exam Vital Signs: Temp Pulse Resp BP Pulse Ox 97.6 F 88 16 138/60 H 95 04/05/20 03:15 04/05/20 14:18 04/05/20 14:18 04/05/20 03:15 04/05/20 14:18 Intake & Output 04/04/20 04/05/20 04/06/20 06:59 06:59 06:59 Intake Total 360 Output Total 1000 150 Balance -1000 210 Weight 143.5 kg 143.5 kg General appearance: PRESENT: no acute distress, morbidly obese, well-developed, well-nourished Head exam: PRESENT: atraumatic, normocephalic Eye exam: PRESENT: conjunctiva pink, EOMI, PERRLA. ABSENT: scleral icterus Ear exam: PRESENT: normal external ear exam Mouth exam: PRESENT: moist, tongue midline Neck exam: ABSENT: carotid bruit, JVD, lymphadenopathy, thyromegaly Respiratory exam: PRESENT: clear to auscultation christine, unlabored. ABSENT: rales, rhonchi, wheezes Cardiovascular exam: PRESENT: RRR, +S1, +S2. ABSENT: diastolic murmur, rubs, systolic murmur Pulses: PRESENT: normal dorsalis pedis pul Vascular exam: PRESENT: normal capillary refill GI/Abdominal exam: PRESENT: normal bowel sounds, soft. ABSENT: distended, guarding, mass, organolmegaly, rebound, tenderness Rectal exam: PRESENT: deferred Extremities exam: PRESENT: full ROM. ABSENT: calf tenderness, clubbing, pedal edema Neurological exam: PRESENT: alert, awake, oriented to person, oriented to place, oriented to time, oriented to situation, CN II-XII grossly intact. ABSENT: motor sensory deficit Psychiatric exam: PRESENT: appropriate affect, normal mood. ABSENT: homicidal ideation, suicidal ideation Skin exam: PRESENT: dry, intact, warm. ABSENT: cyanosis, rash Results Laboratory Results: 04/04/20 09:05 04/04/20 09:05 0903/30/20 03/30/20 16:29 16:29 16:29 Creatine Kinase 114 CK-MB (CK-2) 0.93 Troponin I 0.013 NT-Pro-B Natriuret Pep 29 Impressions: Chest X-Ray 03/30/20 16:22 IMPRESSION: New consolidation in the left upper and lower lobe and probable consolidation in the right upper lobe suspicious for multifocal pneumonia. Endotracheal tube is in the lower trachea about 1.2 cm above the andrea. Assessment and Plan - Diagnosis (1) Acute kidney injury Is this a current diagnosis for this admission?: Yes Plan: Resolved (2) Acute respiratory failure with hypercapnia Is this a current diagnosis for this admission?: Yes Plan: Resolved (3) CAD (coronary artery disease) Qualifiers: Coronary Disease-Associated Artery/Lesion type: [place] artery [place] vs. transplanted heart: [place] heart Associated angina: without angina Qualified Code(s): I25.10 - Atherosclerotic heart disease of [place] coronary artery without angina pectoris Is this a current diagnosis for this admission?: Yes (4) CHF (congestive heart failure) Is this a current diagnosis for this admission?: Yes Plan: Not active. (5) MARIOLA (obstructive sleep apnea) Is this a current diagnosis for this admission?: Yes Plan: CPAP nightly - Plan Summary Summary: Patient was intubated and subsequently extubated. She is currently being treated for aspiration pneumonia. She also has severe COPD, obesity hypoventilation syndrome. She had wants to go home however she is too weak at this time that she probably needs a few weeks of rehab which she has agreed to and is afebrile. She has completed a course of antibiotics Awaiting possible rehab placement. Patient still has a femoral catheter in place and if we are unable to get the peripheral access at this can likely be removed tomorrow as she has not been on any parenteral medications - Time Time Spent with patient: 15-24 minutes Anticipated Discharge Disposition: Snf Facility Anticipated Discharge Timeframe: within 48 hours
[2020-04-05] MEDS: TRAZODONE HCL 50 MG TABLET PO SCH (21:10)
[2020-04-05] MEDS: ATORVASTATIN CALCIUM 40 MG TABLET PO SCH (21:10)
[2020-04-05] MEDS: QUETIAPINE FUMARATE 100 MG TABLET PO SCH (21:10)
[2020-04-05] MEDS: AMITRIPTYLINE HCL 75 MG TABLET PO SCH (21:12)
[2020-04-06] MEDS: INSULIN REG, HUMAN 100 UNIT/ML 3 ML VIAL (PYX) SUBCUT SCH ×4 (00:20→17:50)
[2020-04-06] MEDS: IPRATROPIUM/ALBUTEROL 0.5-2.5 MG/3 ML AMPUL NEB SCH ×4 (03:13→19:43)
[2020-04-06] MEDS: HEPARIN SOD (PORCINE) 5,000 UNIT/ML 1 ML VIAL SUBCUT SCH ×3 (05:00→22:15)
[2020-04-06] MEDS: OXYCODONE HCL IR 5 MG TABLET PO PRN (05:01)
[2020-04-06] MEDS: OXYCODONE-ACETAMINOPHEN 5-325 MG TABLET PO PRN (05:01)
[2020-04-06] MEDS: LEVOTHYROXINE SODIUM 0.05 MG TABLET PO SCH (05:01)
[2020-04-06] MEDS: GABAPENTIN 300 MG CAPSULE PO SCH ×3 (05:01→22:16)
[2020-04-06 05:43] LABS: ABSOLUTE EOSINOPHILS # (AUTO) 0.2 10^3/uL (0.0-0.6); ABSOLUTE LYMPHOCYTES (AUTO) 3.4 10^3/uL (0.5-4.7); ABSOLUTE MONOCYTES (AUTO) 1.1 10^3/uL (0.1-1.4); ABSOLUTE NEUT (AUTO) 9.2 10^3/uL (1.7-8.2); BASOPHILS % (AUTO) 0.3 % (0-2); EOSINOPHILS % (AUTO) 1.5 % (0-6); HEMATOCRIT 33.3 % (36.0-47.0); HEMOGLOBIN 10.6 g/dL (12.0-15.5); LYMPHOCYTES % (AUTO) 24.1 % (13-45); MEAN CORPUSCULAR HEMOGLOBIN 22.8 pg (27.0-33.4); MEAN CORPUSCULAR HGB CONC 31.8 g/dL (32.0-36.0); MEAN CORPUSCULAR VOLUME 72 fl (80-97); MONOCYTES % (AUTO) 7.8 % (3-13); PLATELET COUNT 283 10^3/uL (150-450); RED BLOOD COUNT 4.63 10^6/uL (3.72-5.28); RED CELL DISTRIBUTION WIDTH 19.6 % (11.5-14.0); SEGMENTED NEUTROPHILS % (AUTO) 66.3 % (42-78); TOTAL CELLS COUNTED % (AUTO) 100 %; WHITE BLOOD COUNT 13.9 10^3/uL (4.0-10.5)
[2020-04-06 06:08] LABS: ANION GAP 11 (5-19); BLOOD UREA NITROGEN 32 mg/dL (7-20); CALCIUM 9.8 mg/dL (8.4-10.2); CARBON DIOXIDE 31 mmol/L (22-30); CHLORIDE 98 mmol/L (98-107); GLUCOSE 110 mg/dL (75-110); POTASSIUM 3.9 mmol/L (3.6-5.0)
[2020-04-06] MEDS: LOSARTAN POTASSIUM 50 MG TABLET PO SCH (09:23)
[2020-04-06] MEDS: INSULIN GLARGINE,HUM.REC.ANLOG 1,000 UNIT/10 ML VIAL SUBCUT SCH ×2 (09:23→22:16)
[2020-04-06] MEDS: LEVOFLOXACIN 750 MG TABLET PO SCH (09:29)
[2020-04-06] MEDS: DULOXETINE HCL 30 MG CAPSULE.DR PO SCH ×2 (09:30→22:17)
[2020-04-06] MEDS: BUPROPION HCL 75 MG TABLET PO SCH ×2 (09:30→22:17)
[2020-04-06] MEDS: PREDNISONE 20 MG TABLET PO SCH (09:30)
[2020-04-06] MEDS: FUROSEMIDE 40 MG TABLET PO SCH (09:30)
[2020-04-06] MEDS: NITROGLYCERIN 5 MG (0.2 MG/HR) PATCH.TD24 TD SCH (09:31)
[2020-04-06] MEDS: LURASIDONE HCL 40 MG TABLET PO SCH (09:31)
[2020-04-06] MEDS: TOPIRAMATE 25 MG TABLET PO SCH ×2 (09:31→22:17)
[2020-04-06] MEDS: BENZTROPINE MESYLATE 1 MG TABLET PO SCH ×2 (09:31→22:17)
[2020-04-06] MEDS ORDERED: RINGERS SOLUTION,LACTATED 1,000 ML IV PRN (15:47)
--- NOTE | 2020-04-06 15:57 | PDOC PROGRESS REPORT ---
Subjective Progress Note for:: 04/06/20 Subjective:: Patient says she feels better. She wants to go home however she does realize that she is still unable to ambulate and she is pretty weak 04/05 patient has no new complaints. Reason For Visit: INTUBATED, COPD EXAC, BILATERAL PNA Physical Exam Vital Signs: Temp Pulse Resp BP Pulse Ox 97.9 F 81 16 98/38 L 95 04/06/20 11:23 04/06/20 14:25 04/06/20 14:25 04/06/20 11:23 04/06/20 14:25 Intake & Output 04/05/20 04/06/20 04/07/20 06:59 06:59 06:59 Intake Total 360 865 200 Output Total 150 2300 Balance 210 -1435 200 Weight 143.5 kg 140.2 kg General appearance: PRESENT: no acute distress, morbidly obese, well-developed, well-nourished Head exam: PRESENT: atraumatic, normocephalic Eye exam: PRESENT: conjunctiva pink, EOMI, PERRLA. ABSENT: scleral icterus Mouth exam: PRESENT: moist, tongue midline Neck exam: ABSENT: carotid bruit, JVD, lymphadenopathy, thyromegaly Respiratory exam: PRESENT: clear to auscultation christine, unlabored. ABSENT: rales, rhonchi, wheezes Cardiovascular exam: PRESENT: RRR, +S1, +S2. ABSENT: diastolic murmur, rubs, systolic murmur Vascular exam: PRESENT: normal capillary refill GI/Abdominal exam: PRESENT: normal bowel sounds, soft. ABSENT: distended, guarding, mass, organolmegaly, rebound, tenderness Rectal exam: PRESENT: deferred Extremities exam: PRESENT: full ROM. ABSENT: calf tenderness, clubbing, pedal edema Neurological exam: PRESENT: alert, awake, oriented to person, oriented to place, oriented to time, oriented to situation, CN II-XII grossly intact. ABSENT: motor sensory deficit Psychiatric exam: PRESENT: appropriate affect, normal mood. ABSENT: homicidal ideation, suicidal ideation Skin exam: PRESENT: dry, intact, warm. ABSENT: cyanosis, rash Results Laboratory Results: 04/06/20 05:26 04/06/20 05:26 04/06/20 04/06/20 05:26 05:26 WBC 13.9 H RBC 4.63 Hgb 10.6 L Hct 33.3 L MCV 72 L MCH 22.8 L MCHC 31.8 L RDW 19.6 H Plt Count 283 Seg Neutrophils % 66.3 Sodium 139.5 Potassium 3.9 Chloride 98 Carbon Dioxide 31 H Anion Gap 11 BUN 32 H Creatinine 1.30 H Est GFR ( Amer) 51 L Glucose 110 Calcium 9.8 03/30/20 03/30/20 03/30/20 16:29 16:29 16:29 Creatine Kinase 114 CK-MB (CK-2) 0.93 Troponin I 0.013 NT-Pro-B Natriuret Pep 29 Impressions: Chest X-Ray 03/30/20 16:22 IMPRESSION: New consolidation in the left upper and lower lobe and probable consolidation in the right upper lobe suspicious for multifocal pneumonia. Endotracheal tube is in the lower trachea about 1.2 cm above the andrea. Assessment and Plan - Diagnosis (1) Acute kidney injury Is this a current diagnosis for this admission?: Yes (2) Acute respiratory failure with hypercapnia Is this a current diagnosis for this admission?: Yes (3) CAD (coronary artery disease) Qualifiers: Coronary Disease-Associated Artery/Lesion type: [place] artery [place] vs. t ransplanted heart: [place] heart Associated angina: without angina Qualified Code(s): I25.10 - Atherosclerotic heart disease of [place] coronary artery without angina pectoris Is this a current diagnosis for this admission?: Yes (4) CHF (congestive heart failure) Is this a current diagnosis for this admission?: Yes (5) MARIOLA (obstructive sleep apnea) Is this a current diagnosis for this admission?: Yes - Plan Summary Summary: Patient was intubated and subsequently extubated. She is currently being treated for aspiration pneumonia. She also has severe COPD, obesity hypoventil ation syndrome. She had wants to go home however she is too weak at this time that she probably needs a few weeks of rehab which she has agreed to and is afebrile. She has completed a course of antibiotics Awaiting possible rehab placement. Patient still has a femoral catheter in place and if we are unable to get the peripheral access at this can likely be removed tomorrow as she has not been on any parenteral medications 04/06 Patient continues to be stable. She denies any chest pain nausea vomiting. She is still very anxious to be discharged however we are still waiting for physical therapy evaluation as well as case management for discharge planning. In the interim it appears patient blood pressure has been somewhat low to borderline. I have decreased her losartan from 50 to 25 mg, and I was able to reduce her Lasix from 40 twice daily to 40 once a day as her kidney function has also worsened while in hospital. She also has mild leukocytosis likely secondary to steroids that she has been on. As such prednisone will be discontinued today. Her blood sugars have also been low even despite the fact that she had been on prednisone. She was on 64mg twice a day of Lantus and she actually has not been receiving this consistently due to the hypoglycemia. At this time her Lantus has been changed to just once a day. Further adjustments in all these medications and doses should be done as appropriate. Follow-up of labs in a.m. suggested - Time Time Spent with patient: 15-24 minutes Medications reviewed and adjusted accordingly: Yes Anticipated Discharge Disposition: [facility] Facility Anticipated Discharge Timeframe: within 48 hours
[2020-04-06] MEDS: ATORVASTATIN CALCIUM 40 MG TABLET PO SCH (22:16)
[2020-04-06] MEDS: AMITRIPTYLINE HCL 75 MG TABLET PO SCH (22:17)
[2020-04-06] MEDS: TRAZODONE HCL 50 MG TABLET PO SCH (22:17)
[2020-04-06] MEDS: QUETIAPINE FUMARATE 100 MG TABLET PO SCH (22:18)
[2020-04-07] MEDS: INSULIN REG, HUMAN 100 UNIT/ML 3 ML VIAL (PYX) SUBCUT SCH ×3 (00:51→13:56)
[2020-04-07] MEDS: IPRATROPIUM/ALBUTEROL 0.5-2.5 MG/3 ML AMPUL NEB SCH ×3 (02:24→13:46)
[2020-04-07] MEDS: HEPARIN SOD (PORCINE) 5,000 UNIT/ML 1 ML VIAL SUBCUT SCH (05:44)
[2020-04-07] MEDS: LEVOTHYROXINE SODIUM 0.05 MG TABLET PO SCH (05:44)
[2020-04-07] MEDS: GABAPENTIN 300 MG CAPSULE PO SCH (05:44)
[2020-04-07] MEDS ORDERED: LOSARTAN POTASSIUM 25 MG TABLET PO SCH (08:00)
[2020-04-07] MEDS ORDERED: LOSARTAN POTASSIUM 50 MG TABLET PO SCH (08:00)
[2020-04-07] MEDS: BUPROPION HCL 75 MG TABLET PO SCH (09:21)
[2020-04-07] MEDS: BENZTROPINE MESYLATE 1 MG TABLET PO SCH (09:22)
[2020-04-07] MEDS: TOPIRAMATE 25 MG TABLET PO SCH (09:22)
[2020-04-07] MEDS: NITROGLYCERIN 5 MG (0.2 MG/HR) PATCH.TD24 TD SCH (09:23)
[2020-04-07] MEDS: DULOXETINE HCL 30 MG CAPSULE.DR PO SCH (09:23)
[2020-04-07] MEDS: LEVOFLOXACIN 750 MG TABLET PO SCH (09:25)
[2020-04-07] MEDS ORDERED: FUROSEMIDE 40 MG TABLET PO SCH (10:00)
[2020-04-07] MEDS: LURASIDONE HCL 40 MG TABLET PO SCH (10:28)
[2020-04-07 10:59] LABS: HEMATOCRIT 30.7 % (36.0-47.0); HEMOGLOBIN 9.9 g/dL (12.0-15.5); MEAN CORPUSCULAR HEMOGLOBIN 23.5 pg (27.0-33.4); MEAN CORPUSCULAR HGB CONC 32.4 g/dL (32.0-36.0); MEAN CORPUSCULAR VOLUME 73 fl (80-97); PLATELET COUNT 306 10^3/uL (150-450); RED BLOOD COUNT 4.23 10^6/uL (3.72-5.28); RED CELL DISTRIBUTION WIDTH 19.5 % (11.5-14.0); WHITE BLOOD COUNT 15.7 10^3/uL (4.0-10.5)
[2020-04-07 11:16] LABS: ANION GAP 10 (5-19); BLOOD UREA NITROGEN 31 mg/dL (7-20); CALCIUM 9.6 mg/dL (8.4-10.2); CARBON DIOXIDE 31 mmol/L (22-30); CHLORIDE 96 mmol/L (98-107); GLUCOSE 175 mg/dL (75-110); POTASSIUM 3.7 mmol/L (3.6-5.0)
--- NOTE | 2020-04-07 13:35 | PDOC DISCHARGE SUMMARY ---
Impression - Admit/DC Date/PCP Admission Date/Primary Care Provider: 03/30/20 18:39 MAISHA DUTTON MD Discharge Date: 04/07/20 - Assessment Summary: Santos Sutherland is a 59 y/o female with PMHx of COPD, morbid obesity, hypertension, CHF, CAD, history of NM, asthma, peripheral vascular disease and sleep apnea who was brought to the ED on 03/30/2020 via EMS with respiratory arrest. She was found to have what is suspected to be aspiration pneumonia with possible congruent COPD exacerbation and was inevitably intubated in the ED due to continued respiratory distress. She was subsequently admitted to the ICU for ventilation management and continued treatment. Her time in the ICU was relatively unremarkable and she was extubated on 04/01/2020. Upon extubation her care was transferred from ICU to the hospitalist team. Aspiration pneumonia was treated wit meropenem which was deescalated to Levaquin appropriately. COPD exacerbation was treated with solu-medrol followed by a prednisone taper. Pt's O2 sats gradually improved and she was found to be 98% on room air, and >95% on ambulation today. Over the course of hospitalization variable blood glucose readings noted with readings ranging from 280-79; she had notably low blood glucose readings regardless without use of insulin and regardless of steroid therapy. Patient will to be discharged home with Lantus 60mg that she is to take nightly. I have discontinued her sliding scale insulin at this time. She is educated on routine blood glucose checks. Pt's blood pressure was found to be low-borderline throughout hospital course. Adjustments to patient home medications were made to ensure proper control of blood pressure. Decreased her Irbesartan to 75mg and lasix to 40mg once daily. Patient had frequent complaints/concerns regarding generalized weakness and followed by PT regarding this. Upon final evaluation by PT patient was found to be stable for discharge with PT home health recommendations. On evaluation today patient is found to be stable. She is at 98% on room air and able to ambulate without difficulties. Home health PT has been organized. She is instructed on medication changes and is able to relay the changes back to me appropriately. She expresses understanding of current treatment plan expresses that she is ready for discharge. At this time I do find the patient ready for discharge. She is to follow up with her PCP in at least one week from discharge. She is agreeing and understanding. - Additional Information Resuscitation Status: Full Code Discharge Diet: Cardiac, Diabetic Discharge Activity: Activity As Tolerated Referrals: [facility] [Outside] ANTONIO QURESHI MD [COMMUNITY BASED STAFF] - 04/22/20 1:30 pm Prescriptions: Irbesartan 75 mg PO DAILY #30 tablet Insulin Glargine,Hum.rec.anlog [Lantus Insulin 100 Unit/1 ml 10 ml] 60 unit SUBCUT QHS #30 unit Furosemide [Lasix 40 mg Tablet] 40 mg PO DAILY #30 tablet Ondansetron [Zofran Odt 4 mg Tablet] 4 mg PO Q4H PRN #12 tab.rapdis PRN Reason: Home Medications: Albuterol Sulfate [Proair HFA Inhalation Aerosol 8.5 gm MDI] 2 puff IH Q6HP PRN 12/07/18 Amitriptyline HCl [Elavil 150 mg Tablet] 150 mg PO QHS 12/07/18 Atorvastatin Calcium [Lipitor 40 mg Tablet] 40 mg PO QHS 12/07/18 Benztropine Mesylate [Cogentin 1 mg Tablet] 1 mg PO Q12 12/07/18 Budesonide/Formoterol Fumarate [Symbicort HFA 160-4.5 mcg Inhaler 6 gm] 2 puff IH Q12 12/07/18 Bupropion HCl [Wellbutrin Sr 150 mg Tablet] 150 mg PO QPM 12/07/18 Duloxetine HCl [Cymbalta] 60 mg PO Q12 12/07/18 Gabapentin [Neurontin 300 mg Capsule] 600 mg PO Q8 12/07/18 Levothyroxine Sodium 50 mcg PO Q6AM 12/07/18 Nitroglycerin [Nitro-Dur 5 mg (0.2 mg/Hr) Transdermal Patch] 1 patch TD DAILY 12/07/18 Omeprazole 40 mg PO Q12 12/07/18 Oxycodone HCl/Acetaminophen [Percocet 10-325 mg Tablet] 1 tab PO Q6HP PRN 12/07/18 Topiramate [Topamax] 25 mg PO Q12 12/07/18 Naloxegol Oxalate [Movantik 25 mg Tablet] 25 mg PO QAM 06/20/19 Buspirone HCl [Buspar 10 mg Tablet] 10 mg PO BIDP PRN 03/31/20 Cyanocobalamin (Vitamin B-12) [Vitamin B-12 Inj 1000 Mcg/1 ml Vial] 1 ml IM .MONTHLY 03/31/20 Lurasidone HCl [Latuda 40 mg Tablet] 40 mg PO DAILY 03/31/20 Quetiapine Fumarate [Seroquel 100 mg Tablet] 100 mg PO QHS 03/31/20 Sitagliptin Phosphate [Januvia 50 mg Tablet] 50 mg PO DAILY 03/31/20 Trazodone HCl 100 mg PO QHS 03/31/20 Furosemide [Lasix 40 mg Tablet] 40 mg PO DAILY #30 tablet 04/07/20 Insulin Glargine,Hum.rec.anlog [Lantus Insulin 100 Unit/1 ml 10 ml] 60 unit SUBCUT QHS #30 unit 04/07/20 Irbesartan 75 mg PO DAILY #30 tablet 04/07/20 Ondansetron [Zofran Odt 4 mg Tablet] 4 mg PO Q4H PRN #12 tab.rapdis 04/07/20 History of Present Illiness History of Present Illness: SANTOS SUTHERLAND is a 59 year old female Physical Exam Vital Signs: Temp Pulse Resp BP Pulse Ox 97.8 F 91 21 H 115/57 L 97 04/07/20 09:26 04/07/20 09:26 04/07/20 09:26 04/07/20 09:26 04/07/20 09:26 Intake & Output 04/06/20 04/07/20 04/08/20 06:59 06:59 06:59 Intake Total 865 320 Output Total 2300 Balance -1435 320 Weight 140.2 kg 142.5 kg 142.5 kg General appearance: PRESENT: no acute distress, cooperative, morbidly obese Head exam: PRESENT: atraumatic, normocephalic Eye exam: PRESENT: conjunctiva pink, EOMI, PERRLA. ABSENT: scleral icterus Mouth exam: PRESENT: moist, tongue midline Neck exam: PRESENT: full ROM. ABSENT: JVD, lymphadenopathy, tenderness, thyromegaly Respiratory exam: PRESENT: clear to auscultation christine, symmetrical, unlabored. ABSENT: rales, rhonchi, tachypnea, wheezes Cardiovascular exam: PRESENT: RRR, +S1, +S2. ABSENT: tachycardia Pulses: PRESENT: +2 pedal pulses bilateral GI/Abdominal exam: PRESENT: normal bowel sounds, soft. ABSENT: distended, firm, guarding, hernia, tenderness Extremities exam: PRESENT: full ROM, +2 edema. ABSENT: tenderness Musculoskeletal exam: PRESENT: ambulatory, full ROM. ABSENT: deformity, dislocation Neurological exam: PRESENT: alert, awake, oriented to person, oriented to place, oriented to time, oriented to situation, CN II-XII grossly intact. ABSENT: a ltered, motor sensory deficit Psychiatric exam: PRESENT: appropriate affect, normal mood Skin exam: PRESENT: dry, intact, warm Results Laboratory Results: WBC 15.7 10^3/uL (4.0-10.5) H 04/07/20 10:44 RBC 4.23 10^6/uL (3.72-5.28) 04/07/20 10:44 Hgb 9.9 g/dL (12.0-15.5) L 04/07/20 10:44 Hct 30.7 % (36.0-47.0) L 04/07/20 10:44 MCV 73 fl (80-97) L 04/07/20 10:44 MCH 23.5 pg (27.0-33.4) L 04/07/20 10:44 MCHC 32.4 g/dL (32.0-36.0) 04/07/20 10:44 RDW 19.5 % (11.5-14.0) H 04/07/20 10:44 Plt Count 306 10^3/uL (150-450) 04/07/20 10:44 Lymph % (Auto) 24.1 % (13-45) 04/06/20 05:26 [place] % (Auto) 7.8 % (3-13) 04/06/20 05:26 Eos % (Auto) 1.5 % (0-6) 04/06/20 05:26 Baso % (Auto) 0.3 % (0-2) 04/06/20 05:26 Absolute Neuts (auto) 9.2 10^3/uL (1.7-8.2) H 04/06/20 05:26 Absolute Lymphs (auto) 3.4 10^3/uL (0.5-4.7) 04/06/20 05:26 Absolute Monos (auto) 1.1 10^3/uL (0.1-1.4) 04/06/20 05:26 Absolute Eos (auto) 0.2 10^3/uL (0.0-0.6) 04/06/20 05:26 Absolute Basos (auto) 0.0 10^3/uL (0.0-0.2) 04/06/20 05:26 Seg Neutrophils % 66.3 % (42-78) 04/06/20 05:26 PT 14.2 SEC (11.4-15.4) 03/30/20 16:29 INR 1.08 03/30/20 16:29 APTT 29.2 SEC (23.5-35.8) 03/30/20 16:29 Carbonic Acid 1.43 mmol/L (1.05-1.35) H 03/31/20 20:30 HCO3/H2CO3 Ratio 20:1 03/31/20 20:30 ABG pH 7.40 (7.35-7.45) 03/31/20 20:30 ABG pCO2 47.5 mmHg (35-45) H 03/31/20 20:30 ABG pO2 78.6 mmHg (80-100) L 03/31/20 20:30 ABG HCO3 29.0 mmol/L (20-24) H 03/31/20 20:30 ABG Total CO2 30.4 mmol/L (21-25) H 03/31/20 20:30 ABG O2 Saturation 95.6 % (94-98) 03/31/20 20:30 ABG Base Excess 3.7 mmol/L 03/31/20 20:30 FiO2 30% 03/31/20 20:30 Sodium 137.3 mmol/L (137-145) 04/07/20 10:44 Potassium 3.7 mmol/L (3.6-5.0) 04/07/20 10:44 Chloride 96 mmol/L (98-107) L 04/07/20 10:44 Carbon Dioxide 31 mmol/L (22-30) H 04/07/20 10:44 Anion Gap 10 (5-19) 04/07/20 10:44 BUN 31 mg/dL (7-20) H 04/07/20 10:44 Creatinine 1.13 mg/dL (0.52-1.25) 04/07/20 10:44 Est GFR ( Amer) 59 (>60) L 04/07/20 10:44 Est GFR (MDRD) Non-Af 49 (>60) L 04/07/20 10:44 Glucose 175 mg/dL (75-110) H 04/07/20 10:44 POC Glucose 131 mg/dL (70-110) H 04/07/20 12:46 Lactic Acid 0.6 mmol/L (0.7-2.1) L 03/30/20 16:29 Calcium 9.6 mg/dL (8.4-10.2) 04/07/20 10:44 Phosphorus 3.3 mg/dL (2.5-4.5) 04/01/20 04:48 Magnesium 1.9 mg/dL (1.6-2.3) 04/07/20 10:44 Total Bilirubin 0.8 mg/dL (0.2-1.3) 03/30/20 16:29 Direct Bilirubin 0.5 mg/dL (0.0-0.4) H 03/30/20 16:29 Neonat Total Bilirubin Not Reportable 03/30/20 16:29 Neonat Direct Bilirubin Not Reportable 03/30/20 16:29 Neonat Indirect Bili Not Reportable 03/30/20 16:29 AST 28 U/L (14-36) 03/30/20 16:29 ALT 15 U/L (<35) 03/30/20 16:29 Alkaline Phosphatase 312 U/L (38-126) H 03/30/20 16:29 Creatine Kinase 114 U/L (30-135) 03/30/20 16:29 CK-MB (CK-2) 0.93 ng/mL (<4.55) 03/30/20 16:29 Troponin I 0.013 ng/mL 03/30/20 16:29 NT-Pro-B Natriuret Pep 29 pg/mL (<125) 03/30/20 16:29 Total Protein 8.4 g/dL (6.3-8.2) H 03/30/20 16:29 Albumin 3.5 g/dL (3.5-5.0) 04/01/20 04:48 Urine Color YELLOW 03/30/20 16:35 Urine Appearance CLOUDY 03/30/20 16:35 Urine pH 5.0 (5.0-9.0) 03/30/20 16:35 Ur Specific [place] 1.015 03/30/20 16:35 Urine Protein 30 mg/dL (NEGATIVE) H 03/30/20 16:35 Urine Glucose (UA) NEGATIVE mg/dL (NEGATIVE) 03/30/20 16:35 Urine Ketones NEGATIVE mg/dL (NEGATIVE) 03/30/20 16:35 Urine Blood NEGATIVE (NEGATIVE) 03/30/20 16:35 Urine Nitrite (Reflex) NEGATIVE (NEGATIVE) 03/30/20 16:35 Urine Bilirubin NEGATIVE (NEGATIVE) 03/30/20 16:35 Urine Urobilinogen 2.0 mg/dL (<2.0) H 03/30/20 16:35 Leukocyte Esterase Rfl NEGATIVE (NEGATIVE) 03/30/20 16:35 Urine RBC (Auto) 4 /HPF 03/30/20 16:35 U Hyaline Cast (Auto) 33 /LPF 03/30/20 16:35 Urine Bacteria (Auto) TRACE /HPF 03/30/20 16:35 Urine WBC (Reflex) 3 /HPF 03/30/20 16:35 Squamous Epi Cells Auto 4 /HPF 03/30/20 16:35 Urine Mucus (Auto) FEW /LPF 03/30/20 16:35 Urine Ascorbic Acid NEGATIVE (NEGATIVE) 03/30/20 16:35 Urine Opiates Screen UNCONFIRMED POSITIVE 03/30/20 16:35 Urine Methadone Screen NEGATIVE 03/30/20 16:35 Ur Barbiturates Screen NEGATIVE 03/30/20 16:35 Ur Phencyclidine Scrn NEGATIVE 03/30/20 16:35 Ur Amphetamines Screen NEGATIVE 03/30/20 16:35 U Benzodiazepines Scrn UNCONFIRMED POSITIVE 03/30/20 16:35 Urine Cocaine Screen NEGATIVE 03/30/20 16:35 U Marijuana (THC) Screen NEGATIVE 03/30/20 16:35 COVID-19 Source See comment 03/30/20 20:50 COVID-19 (JOSEPH) Not Detected (Not Detect) 03/30/20 20:50 03/30/20 03/30/20 16:29 16:29 CK-MB (CK-2) 0.93 Troponin I 0.013 NT-Pro-B Natriuret Pep 29 Impressions: Chest X-Ray 03/30/20 16:22 IMPRESSION: New consolidation in the left upper and lower lobe and probable consolidation in the right upper lobe suspicious for multifocal pneumonia. Endotracheal tube is in the lower trachea about 1.2 cm above the andrea. Plan Health Concerns: COPD exacerbation with acute respiratory failure requiring intubation, increased risk of recurrent exacerbations Insulin dependent DM, with episodes of hypoglycemia Plan of Treatment: Home health with PT. Appropriate management of multiple comorbidities without excessive medication use. Goals: Decrease number of chronic medications Gain control of DM Decrease COPD exacerbations Time Spent: Greater than 30 Minutes Stroke Is this a Stroke Patient?: No Acute Heart Failure Is this a Heart Failure Patient?: Yes Documentation of LVEF assessment?: No, Document reason LVEF - Reason: known history of systolic heart failure LVEF: LVEF Greater Than 40% Anticoagulant Therapy: Yes
[2020-04-07 13:58] VITALS: BP 140/88
== END 2020-04-07 14:20 | disposition home health service (06) | DRG 208 ==
LOC: ER 14:32 → EH 18:39 → ICU 23:10 → 5 04-01 19:38
PROVIDERS: ADMIT Anesthesiology; ATTEND Hospitalist
PROC: 5A1945Z Respiratory Ventilation, 24-96 Consecutive Hours (ICD-10-PCS; principal; 2020-03-30)
PROC: 0BH17EZ Insertion of Endotracheal Airway into Trachea, Via Natural or Artificial Opening (ICD-10-PCS; 2020-03-30)
PROC: 02HV33Z Insertion of Infusion Device into Superior Vena Cava, Percutaneous Approach (ICD-10-PCS; 2020-03-30)
PROC: B548ZZA Ultrasonography of Superior Vena Cava, Guidance (ICD-10-PCS; 2020-03-30)
PROC: 3E0234Z Introduction of Serum, Toxoid and Vaccine into Muscle, Percutaneous Approach (ICD-10-PCS; 2020-04-03)
DX: J96.02 Acute respiratory failure with hypercapnia (principal); J69.0 Pneumonitis due to inhalation of food and vomit; G93.41 Metabolic encephalopathy; J44.1 Chronic obstructive pulmonary disease with (acute) exacerbation; N17.9 Acute kidney failure, unspecified; I13.0 Hypertensive heart and chronic kidney disease with heart failure and stage 1 through stage 4 chronic kidney disease, or unspecified chronic kidney disease; I50.22 Chronic systolic (congestive) heart failure; F31.5 Bipolar disorder, current episode depressed, severe, with psychotic features; N18.2 Chronic kidney disease, stage 2 (mild); E11.22 Type 2 diabetes mellitus with diabetic chronic kidney disease; I25.10 Atherosclerotic heart disease of native coronary artery without angina pectoris; I73.9 Peripheral vascular disease, unspecified; K21.9 Gastro-esophageal reflux disease without esophagitis; I25.2 Old myocardial infarction; F43.10 Post-traumatic stress disorder, unspecified; G47.33 Obstructive sleep apnea (adult) (pediatric); E66.01 Morbid (severe) obesity due to excess calories; Z20.828 Contact with and (suspected) exposure to other viral communicable diseases; Z79.4 Long term (current) use of insulin; Z79.891 Long term (current) use of opiate analgesic; Z79.51 Long term (current) use of inhaled steroids; Z79.899 Other long term (current) drug therapy; Z23 Encounter for immunization
CPT/HCPCS: 36415; 36600; 51702; 71045; 80048; 80053; 80069; 80307; 81001; 82550; 82553; 82803; 82962; 83605; 83735; 83880; 84484; 85025; 85027; 85610; 85730; 87040; 87077; 87150; 87186; 87635; 90471; 90686; 93005; 93010; 94002; 94003; 94640; 94660; 96365; 96366; 96375; 99291; C9803; G0008; J0330; J1610; J1644; J1815; J2185; J2250; J2405; J2704; J2930; J3490; J7060; J7120; J7512; S0028

== ENCOUNTER 2020-04-26 00:19 | Emergency (ER) | payer MEDICARE, MEDICAID ==
[2020-04-26 00:50] VITALS: BP 124/66
== END 2020-04-26 02:15 | disposition left against medical advice (07) ==
LOC: ER 00:19
DX: Z53.21 Procedure and treatment not carried out due to patient leaving prior to being seen by health care provider (principal); M79.89 Other specified soft tissue disorders

== ENCOUNTER 2020-05-27 13:53 | Emergency (ER) | payer MEDICARE, MEDICAID ==
--- NOTE | 2020-05-27 14:12 | ER Document Report ---
ED Medical Screen (RME) - General Chief Complaint: Leg Pain Stated Complaint: LEFT LEG PAIN Time Seen by Provider: 05/27/20 14:11 Primary Care Provider: ASHLEY MOSLEY PA-C [Primary Care Provider] - Follow up as needed Mode of Arrival: Ambulatory Information source: Patient Notes: Patient is a 60-year-old female who came in by EMS sent here by her home health nurse for a left lower foot swelling and warmth. Patient was brought in through the emergency room and sent out in triage when she was called back patient's refusing to be seen stating that she does not want to be seen and does not know why she is here to start with. I have spent approximately 5 to 10 minutes talking to her asking her if I could examine the foot which patient Denied need to do so. I have gone back and talk to the charge nurse and they will reevaluate patient to see if they can convince her to stay. It was reported to me by nursing that the charge nurse with the patient patient was getting into a cab and left on her own. I was unable to plan for any type of physical examination patient would not allow me to touch her or look at her foot. Patient would not allow for the text to take her vital signs. So she left after my initial discussion with her. TRAVEL OUTSIDE OF THE [place] IN LAST 30 DAYS: No - Related Data Allergies/Adverse Reactions: cephalexin monohydrate [From Keflex] Allergy (Unknown, Verified 03/30/20 15:17) codeine [Codeine] Allergy (Unknown, Verified 03/30/20 15:17) dicyclomine HCl [From Bentyl] Allergy (Unknown, Verified 03/30/20 15:17) hydrocodone bitartrate [From Vicodin] Allergy (Unknown, Verified 03/30/20 15:17) meloxicam [From Mobic] Allergy (Unknown, Verified 03/30/20 15:17) meperidine HCl [From Demerol (PF)] Allergy (Unknown, Verified 03/30/20 15:17) morphine [Morphine] Allergy (Unknown, Verified 03/30/20 15:17) naproxen sodium [From Naprelan CR Dosepak] Allergy (Unknown, Verified 03/30/20 15:17) nitrofurantoin [From Macrobid] Allergy (Unknown, Verified 03/30/20 15:17) pantoprazole sodium [From Protonix] Allergy (Unknown, Verified 03/30/20 15:17) Penicillins Allergy (Unknown, Verified 03/30/20 15:17) Sulfa (Sulfonamide Antibiotics) Allergy (Unknown, Verified 03/30/20 15:17) aspirin Allergy (Verified 03/30/20 15:17) lamotrigine [From Lamictal] Allergy (Verified 03/30/20 15:17) rash Past Medical History - Social History Family history: Reviewed & Not Pertinent - Past Medical History Cardiac Medical History: Reports: Hx Congestive Heart Failure, Hx Coronary Artery Disease, Hx Heart Attack, Hx Hypercholesterolemia, Hx Hypertension, Hx Peripheral Vascular Disease Denies: Hx Heart Murmur Pulmonary Medical History: Reports: Hx Asthma, Hx COPD, Hx Sleep Apnea Denies: Hx Bronchitis, Hx Pneumonia, Hx Respiratory Failure, Hx Tuberculosis Neurological Medical History: Reports: Hx Migraine. Denies: Hx Cerebrovascular Accident, Hx Seizures, Hx Parkinson's Disease Endocrine Medical History: Reports: Hx Diabetes Mellitus Type 2, Hx Hyperthyroidism, Hx Hypothyroidism Renal/ Medical History: Reports: Hx Renal Insufficiency. Denies: Hx End Stage Renal Disease, Hx Kidney Stones, Hx Peritoneal Dialysis Malignancy Medical History: GI Medical History: Reports: Hx Gastroesophageal Reflux Disease. Denies: Hx Cirrhosis, Hx Pancreatitis, Hx Ulcer Musculoskeltal Medical History: Reports Hx Arthritis, Reports Hx Fibromyalgia, Denies Hx Multiple Sclerosis, Reports Hx Muscle Weakness, Denies Hx Systemic Lupus Erythematosus Psychiatric Medical History: Reports: Hx Depression, Hx Post Traumatic Stress Disorder Denies: Hx Bipolar Disorder, Hx Schizophrenia Traumatic Medical History: Infectious Medical History: Past Surgical History: Reports: Hx Cardiac Catheterization, Hx Section - x2, Hx Coronary Artery Bypass Graft, Hx Coronary Stent - x2, Hx Hysterectomy, Hx Orthopedic Surgery, Hx Tubal Ligation, Other - multiple colonoscopies for lower GI bleed - Immunizations Hx Diphtheria, Pertussis, Tetanus Vaccination: Yes Doctor's Discharge - Discharge Referrals: ASHLEY MOSLEY PA-C [Primary Care Provider] - Follow up as needed
== END 2020-05-27 14:55 | disposition left against medical advice (07) ==
LOC: ER 13:53
DX: M79.89 Other specified soft tissue disorders (principal); E11.51 Type 2 diabetes mellitus with diabetic peripheral angiopathy without gangrene; I25.10 Atherosclerotic heart disease of native coronary artery without angina pectoris; I10 Essential (primary) hypertension; J44.9 Chronic obstructive pulmonary disease, unspecified; Z95.1 Presence of aortocoronary bypass graft; Z95.5 Presence of coronary angioplasty implant and graft; Z88.1 Allergy status to other antibiotic agents; Z88.6 Allergy status to analgesic agent; Z88.5 Allergy status to narcotic agent; Z88.8 Allergy status to other drugs, medicaments and biological substances; Z88.0 Allergy status to penicillin; Z88.2 Allergy status to sulfonamides; Z53.29 Procedure and treatment not carried out because of patient's decision for other reasons

== ENCOUNTER 2020-05-29 07:19 | Outpatient (CLI) | payer MEDICARE, MEDICAID ==
[2020-05-29] MEDS ORDERED: NORMAL SALINE 250 ML IV PRN (07:41)
[2020-05-29] MEDS ORDERED: IRON DEXTRAN COMPLEX 25 MG in SYRINGE, DISPOSABLE, 1 EACH IM PRN (07:42)
[2020-05-29] MEDS ORDERED: IRON DEXTRAN COMPLEX 775 MG in NORMAL SALINE 500 ML IV PRN (07:43)
[2020-05-29 08:00] VITALS: BP 132/71
[2020-05-29] MEDS ORDERED: IRON DEXTRAN COMPLEX 25 MG in SYRINGE, DISPOSABLE, 1 EACH IV PRN ×2 (08:30→08:33)
== END 2020-05-29 13:00 | disposition home or self-care (01) ==
LOC: II 07:19 → 5TH 07:32 → II 13:00
PROVIDERS: ATTEND Internal Medicine Hematology & Oncology
DX: D50.9 Iron deficiency anemia, unspecified (principal); K90.9 Intestinal malabsorption, unspecified
CPT/HCPCS: 96365; 96366; 96375; J1750; J7040; J3490; J1642

== ENCOUNTER 2020-05-29 13:13 | Emergency (ER) | payer MEDICARE, MEDICAID ==
--- NOTE | 2020-05-29 15:24 | ER Document Report ---
ED Medical Screen (RME) - General Chief Complaint: Foot Pain Stated Complaint: LEFT FOOT PAIN Time Seen by Provider: 05/29/20 15:15 Primary Care Provider: LORIE GOLDSMITH DPM [Primary Care Provider] - Follow up as needed Mode of Arrival: Wheelchair Information source: Patient Notes: 60-year-old female presented to ED for a MRSA infection in her left foot. She states the dressing was changed last week and has not been changed since. States she does have diabetes type 2. She states that she had a 5-hour iron transfusion today. She is alert oriented respirations regular and unlabored speaking in full sentences. I have greeted and performed a rapid initial assessment of this patient. A comprehensive ED assessment and evaluation of the patient, analysis of test results and completion of medical decision making process will be conducted by an additional ED providers. TRAVEL OUTSIDE OF THE [place] IN LAST 30 DAYS: No - Related Data Allergies/Adverse Reactions: cephalexin monohydrate [From Keflex] Allergy (Unknown, Verified 05/29/20 15:07) codeine [Codeine] Allergy (Unknown, Verified 05/29/20 15:07) dicyclomine HCl [From Bentyl] Allergy (Unknown, Verified 05/29/20 15:07) hydrocodone bitartrate [From Vicodin] Allergy (Unknown, Verified 05/29/20 15:07) meloxicam [From Mobic] Allergy (Unknown, Verified 05/29/20 15:07) meperidine HCl [From Demerol (PF)] Allergy (Unknown, Verified 05/29/20 15:07) morphine [Morphine] Allergy (Unknown, Verified 05/29/20 15:07) naproxen sodium [From Naprelan CR Dosepak] Allergy (Unknown, Verified 05/29/20 15:07) nitrofurantoin [From Macrobid] Allergy (Unknown, Verified 05/29/20 15:07) pantoprazole sodium [From Protonix] Allergy (Unknown, Verified 05/29/20 15:07) Penicillins Allergy (Unknown, Verified 05/29/20 15:07) Sulfa (Sulfonamide Antibiotics) Allergy (Unknown, Verified 05/29/20 15:07) aspirin Allergy (Verified 05/29/20 15:07) lamotrigine [From Lamictal] Allergy (Verified 05/29/20 15:07) rash Home Medications: lantus. atorvastatin. benztropine. duloxetine. glvilax. irbesartan. vitamin b 12. temazepam. percocet. gabapentin. humalog. latuda. levothyroxine. movantik. nitro. omeprazole. proair. symbicort. lasix Past Medical History - Social History Chew tobacco use (# tins/day): Yes Frequency of alcohol use: None Drug Abuse: None Family history: Reviewed & Not Pertinent - Past Medical History Cardiac Medical History: Reports: Hx Congestive Heart Failure, Hx Coronary Artery Disease, Hx Heart Attack, Hx Hypercholesterolemia, Hx Hypertension, Hx Peripheral Vascular Disease Denies: Hx Heart Murmur Pulmonary Medical History: Reports: Hx Asthma, Hx COPD, Hx Sleep Apnea Denies: Hx Bronchitis, Hx Pneumonia, Hx Respiratory Failure, Hx Tuberculosis Neurological Medical History: Reports: Hx Migraine. Denies: Hx Cerebrovascular Accident, Hx Seizures, Hx Parkinson's Disease Endocrine Medical History: Reports: Hx Diabetes Mellitus Type 2, Hx Hyperthyroidism, Hx Hypothyroidism Renal/ Medical History: Reports: Hx Renal Insufficiency. Denies: Hx End Stage Renal Disease, Hx Kidney Stones, Hx Peritoneal Dialysis Malignancy Medical History: GI Medical History: Reports: Hx Gastroesophageal Reflux Disease. Denies: Hx Cirrhosis, Hx Pancreatitis, Hx Ulcer Musculoskeltal Medical History: Reports Hx Arthritis, Reports Hx Fibromyalgia, Denies Hx Multiple Sclerosis, Reports Hx Muscle Weakness, Denies Hx Systemic Lupus Erythematosus Psychiatric Medical History: Reports: Hx Depression, Hx Post Traumatic Stress Disorder Denies: Hx Bipolar Disorder, Hx Schizophrenia Traumatic Medical History: Infectious Medical History: Past Surgical History: Reports: Hx Cardiac Catheterization, Hx Section - x2, Hx Coronary Artery Bypass Graft, Hx Coronary Stent - x2, Hx Hysterectomy, Hx Orthopedic Surgery, Hx Tubal Ligation, Other - multiple colonoscopies for lower GI bleed - Immunizations Hx Diphtheria, Pertussis, Tetanus Vaccination: Yes Physical Exam - Vital signs Vitals: Temp Pulse Resp BP Pulse Ox 98.7 F 103 H 32 H 160/74 H 100 05/29/20 14:24 05/29/20 14:24 05/29/20 14:24 05/29/20 14:24 05/29/20 14:24 Course - Vital Signs Vital signs: Temp Pulse Resp BP Pulse Ox 98.7 F 103 H 32 H 160/74 H 100 05/29/20 15:07 05/29/20 14:24 05/29/20 14:24 05/29/20 14:24 05/29/20 14:24 Doctor's Discharge - Discharge Referrals: LORIE GOLDSMITH DPM [Primary Care Provider] - Follow up as needed
[2020-05-29 16:18] LABS: ABSOLUTE EOSINOPHILS # (AUTO) 0.1 10^3/uL (0.0-0.6); ABSOLUTE MONOCYTES (AUTO) 0.5 10^3/uL (0.1-1.4); ABSOLUTE NEUT (AUTO) 6.6 10^3/uL (1.7-8.2); BASOPHILS % (AUTO) 0.4 % (0-2); EOSINOPHILS % (AUTO) 1.6 % (0-6); LYMPHOCYTES % (AUTO) 21.9 % (13-45); MEAN CORPUSCULAR HEMOGLOBIN 20.8 pg (27.0-33.4); MEAN CORPUSCULAR HGB CONC 30.5 g/dL (32.0-36.0); MEAN CORPUSCULAR VOLUME 68 fl (80-97); MONOCYTES % (AUTO) 5.6 % (3-13); PLATELET COUNT 348 10^3/uL (150-450); RED BLOOD COUNT 3.21 10^6/uL (3.72-5.28); RED CELL DISTRIBUTION WIDTH 20.7 % (11.5-14.0); SEGMENTED NEUTROPHILS % (AUTO) 70.5 % (42-78); TOTAL CELLS COUNTED % (AUTO) 100 %; WHITE BLOOD COUNT 9.3 10^3/uL (4.0-10.5)
--- NOTE | 2020-05-29 16:31 | RADIOLOGY REPORT (SQ) ---
EXAM DESCRIPTION: FOOT LEFT COMPLETE IMAGES COMPLETED DATE/TIME: 05/29/2020 4:15 pm REASON FOR STUDY: pain and infection COMPARISON: None. NUMBER OF VIEWS: Three views. TECHNIQUE: AP, lateral and oblique radiographic images acquired of the left foot. LIMITATIONS: None. FINDINGS: MINERALIZATION: Normal. BONES: Smooth deformity distal third proximal phalanx fifth toe. Subluxation at the proximal interp halangeal joint of the fifth toe. No acute fracture or dislocation. No radiographic evidence of ost eomyelitis. JOINTS: Flexion deformity second through the fifth toes. Marked joint space narrowing, osteophytes and subchondral sclerotic changes at the first metatarsophalangeal joint. Cystic changes Joint space narrowing at the second fifth metatarsal-tarsal joints. Narrowing at the talonavicular joint. SOFT TISSUES: Marked soft tissue swelling. OTHER: No other significant finding. IMPRESSION: 1. Marked soft tissue swelling. 2. Marked degenerative changes at the first metatarsophalangeal joint. Degenerative changes at the midfoot and flexion deformity involving toes. 3. No radiographic evidence of osteomyelitis. Additional imaging may be helpful. TECHNICAL DOCUMENTATION: JOB ID: [id number] 2010 [employer]- All Rights Reserved Reading location - IP/workstation name: [email or web address]
[2020-05-29 16:32] LABS: HEMOGLOBIN 6.7 g/dL (12.0-15.5)
--- NOTE | 2020-05-29 17:20 | ER Document Report ---
ED General - General Chief Complaint: Foot Pain Stated Complaint: LEFT FOOT PAIN Time Seen by Provider: 05/29/20 15:15 Primary Care Provider: LORIE GOLDSMITH DPM [Primary Care Provider] - Follow up as needed Mode of Arrival: Wheelchair Notes: 60-year-old female presents to the emergency department with a complaint of left foot pain and an open lesion on the sole of her left foot. She received a infusion of iron today for anemia. States that she has had the ulcer on her foot for a number of weeks. She denies fever or worsened swelling. She does complain of pain in the left and is concerned that she may have MRSA. She is presently on no antibiotics. TRAVEL OUTSIDE OF THE [place] IN LAST 30 DAYS: No - Related Data Allergies/Adverse Reactions: cephalexin monohydrate [From Keflex] Allergy (Unknown, Verified 05/29/20 15:07) codeine [Codeine] Allergy (Unknown, Verified 05/29/20 15:07) dicyclomine HCl [From Bentyl] Allergy (Unknown, Verified 05/29/20 15:07) hydrocodone bitartrate [From Vicodin] Allergy (Unknown, Verified 05/29/20 15:07) meloxicam [From Mobic] Allergy (Unknown, Verified 05/29/20 15:07) meperidine HCl [From Demerol (PF)] Allergy (Unknown, Verified 05/29/20 15:07) morphine [Morphine] Allergy (Unknown, Verified 05/29/20 15:07) naproxen sodium [From Naprelan CR Dosepak] Allergy (Unknown, Verified 05/29/20 15:07) nitrofurantoin [From Macrobid] Allergy (Unknown, Verified 05/29/20 15:07) pantoprazole sodium [From Protonix] Allergy (Unknown, Verified 05/29/20 15:07) Penicillins Allergy (Unknown, Verified 05/29/20 15:07) Sulfa (Sulfonamide Antibiotics) Allergy (Unknown, Verified 05/29/20 15:07) aspirin Allergy (Verified 05/29/20 15:07) lamotrigine [From Lamictal] Allergy (Verified 05/29/20 15:07) rash Home Medications: lantus. atorvastatin. benztropine. duloxetine. glvilax. irbesartan. vitamin b 12. temazepam. percocet. gabapentin. humalog. latuda. levothyroxine. movantik. nitro. omeprazole. proair. symbicort. lasix Past Medical History - General Information source: Patient - Social History Smoking Status: Never Smoker Chew tobacco use (# tins/day): Yes Frequency of alcohol use: None Drug Abuse: None Family History: Reviewed & Not Pertinent, Hypertension Patient has homicidal ideation: No - Past Medical History Cardiac Medical History: Reports: Hx Congestive Heart Failure, Hx Coronary Artery Disease, Hx Heart Attack, Hx Hypercholesterolemia, Hx Hypertension, Hx Peripheral Vascular Disease Denies: Hx Heart Murmur Pulmonary Medical History: Reports: Hx Asthma, Hx COPD, Hx Sleep Apnea Denies: Hx Bronchitis, Hx Pneumonia, Hx Respiratory Failure, Hx Tuberculosis Neurological Medical History: Reports: Hx Migraine. Denies: Hx Cerebrovascular Accident, Hx Seizures, Hx Parkinson's Disease Endocrine Medical History: Reports: Hx Diabetes Mellitus Type 2, Hx Hyperthyro idism, Hx Hypothyroidism Renal/ Medical History: Reports: Hx Renal Insufficiency. Denies: Hx End Stage Renal Disease, Hx Kidney Stones, Hx Peritoneal Dialysis Malignancy Medical History: GI Medical History: Reports: Hx Gastroesophageal Reflux Disease. Denies: Hx Cirrhosis, Hx Pancreatitis, Hx Ulcer Musculoskeletal Medical History: Reports Hx Arthritis, Reports Hx Fibromyalgia, Denies Hx Multiple Sclerosis, Reports Hx Muscle Weakness, Denies Hx Systemic Lupus Erythematosus Psychiatric Medical History: Reports: Hx Depression, Hx Post Traumatic Stress Disorder Denies: Hx Bipolar Disorder, Hx Schizophrenia Traumatic Medical History: Infectious Medical History: Past Surgical History: Reports: Hx Cardiac Catheterization, Hx Section - x2, Hx Coronary Artery Bypass Graft, Hx Coronary Stent - x2, Hx Hysterectomy, Hx Orthopedic Surgery, Hx Tubal Ligation, Other - multiple colonoscopies for lower GI bleed - Immunizations Hx Diphtheria, Pertussis, Tetanus Vaccination: Yes Hx Pneumococcal Vaccination: 04/02/13 Review of Systems - Review of Systems Notes: Constitutional: Negative for fever. HENT: Negative for sore throat. Eyes: Negative for visual changes. Cardiovascular: Negative for chest pain. Respiratory: Negative for shortness of breath. Gastrointestinal: Negative for abdominal pain, vomiting or diarrhea. Genitourinary: Negative for dysuria. Musculoskeletal: Negative for back pain. Skin: See HPI Neurological: Negative for headaches, weakness or numbness. 10 point ROS negative except as marked above and in HPI. Physical Exam - Vital signs Vitals: Temp Pulse Resp BP Pulse Ox 98.7 F 103 H 32 H 160/74 H 100 05/29/20 14:24 05/29/20 14:24 05/29/20 14:24 05/29/20 14:24 05/29/20 14:24 Interpretation: Normal - Notes Notes: PHYSICAL EXAMINATION: Physical Exam: General: Obese 60-year-old woman in no acute distress HEENT: NC/AT, pupils equal round and reactive to light, MM moist,nares clear, oropharynx clear, airway patent Neck: supple, no adenopathy, no masses. Good range of motion Lungs: clear, no wheezing, no rales no rhonchi CVS: Regular rate and rhythm no murmur gallop or rub Abdomen: Soft, active, nontender, no masses, no hepatosplenomegaly Ext: No edema, clubbing or cyanosis. Neuro: Alert and responsive, moving all 4 extremities on command, cranial nerves intact, no focal findings Skin: Left foot with a ulcer noted on the plantar surface lateral aspect below the fifth metatarsal, there is a pink base with granulation tissue noted, unable to express pus from the lesion. Chronic edema of the foot and hyperpigmentation with lichenification noted in the distal left lower extremity. Course - Vital Signs Vital signs: Temp Pulse Resp BP Pulse Ox 98.7 F 103 H 32 H 160/74 H 100 05/29/20 15:07 05/29/20 14:24 05/29/20 14:24 05/29/20 14:24 05/29/20 14:24 - Laboratory Result Diagrams: 05/29/20 15:40 05/29/20 15:40 Laboratory results interpreted by me: 05/29/20 05/29/20 15:40 15:40 RBC 3.21 L Hgb 6.7 L Hct 22.0 L MCV 68 L MCH 20.8 L MCHC 30.5 L RDW 20.7 H Glucose 120 H Alkaline Phosphatase 210 H Discharge - Discharge Clinical Impression: Chronic ulcer of left foot due to diabetes mellitus, Chronic anemia Condition: Good Disposition: HOME, SELF-CARE Instructions: Foot or Leg Ulcer ([facility]) Additional Instructions: Take the antibiotic as prescribed clindamycin. Please follow-up with your doctor regarding wound care, call on Monday for appointment Continue to follow with the home health nursing wound care. HOME CARE INSTRUCTIONS & INFORMATION: Thank you for choosing us for your medical needs. We hope you're satisfied with the care you received. After you leave, you must properly care for your problem and, at the same time, observe its progress. Any condition can change. Some illnesses can change rapidly over hours or days. If your condition worsens, return to the Emergency Department or see your physician promptly. ABOUT YOUR X-RAYS AND EKG'S: If you had an EKG or X-rays taken, they have been read by the Emergency Physician. The X-rays and EKG's will also be read by a Radiologist or Phosphoric Acid Operator within 24 hours. If discrepancies are noted, you will be notified by telephone. Please be certain the ED has a correct telephone number & address where you can be reached. Also, realize that some fractures or abnormalities do not show up on initial X-rays. If your symptoms continue, see your physician. ABOUT YOUR LABORATORY TEST: If you had laboratory tests, the results have been reviewed by the Emergency Physician. Some test results (for example cultures) may not be available for several days. You will be contacted if any test result shows you need additional treatment. Please be certain the ED has a correct telephone number and address where you can be reached. ABOUT YOUR MEDICATIONS: You will receive instructions on how to take your medicine on the prescription label you receive. Additional information may be provided by the Pharmacy. If you have questions afterwards, call the ED for clarification or further instructions. Some prescribed medications may cause drowsiness. Do not perform tasks such as driving a car or operating machinery without consulting your Pharmacist. If you feel you need a refill of pain medication, your condition will need re-evaluation. Please do not call for a refill of any medication. ABOUT YOUR SIGNATURE: Signature of this document acknowledges to followin. Understanding that you received emergency treatment and that you may be released before al medical problems are known or treated. Please be certain the ED has a correct phone number & address where you can be reached. 2. Acknowledgement that you will arrange for follow-up care as recommended. 3. Authorization for the Emergency Physician to provide information to your follow-up Physician in order to maximize your care. AT ANY TIME, IF YOUR SYMPTOMS CHANGE SIGNIFICANTLY OR WORSEN OR YOU DEVELOP NEW SYMPTOMS, RETURN TO THE EMERGENCY DEPARTMENT IMMEDIATELY FOR RE-EVALUATION. OUR GOAL IS TO PROVIDE EXCELLENT MEDICAL CARE! WE HOPE THAT WE HAVE MET YOUR EXPECTATIONS DURING YOUR EMERGENCY DEPARTMENT VISIT AND THAT YOU FEEL YOU HAVE RECEIVED EXCELLENT CARE! Prescriptions: Clindamycin HCl 300 mg PO TID #30 capsule Referrals: LORIE GOLDSMITH DPM [Primary Care Provider] - Follow up as needed
[2020-05-29 17:32] LABS: ALBUMIN 3.7 g/dL (3.5-5.0); ALKALINE PHOSPHATASE 210 U/L (38-126); ANION GAP 9 (5-19); ASPARTATE AMINO TRANSFERASE 17 U/L (14-36); BILIRUBIN,DIRECT 0.2 mg/dL (0.0-0.4); BILIRUBIN,TOTAL 0.7 mg/dL (0.2-1.3); BLOOD UREA NITROGEN 9 mg/dL (7-20); CARBON DIOXIDE 24 mmol/L (22-30); CHLORIDE 106 mmol/L (98-107); GLUCOSE 120 mg/dL (75-110); POTASSIUM 3.9 mmol/L (3.6-5.0); TOTAL PROTEIN 7.5 g/dL (6.3-8.2)
[2020-05-29] MEDS ORDERED: CLINDAMYCIN HCL 150 MG CAPSULE PO ONE (19:05)
[2020-05-29] MEDS: OXYCODONE-ACETAMINOPHEN 5-325 MG TABLET PO ONE ×2 (19:11→19:12)
[2020-05-29 19:44] LABS: APPEARANCE,URINE CLEAR; BILIRUBIN,URINE NEGATIVE (NEGATIVE); COLOR,URINE YELLOW; GLUCOSE, URINE NEGATIVE (NEGATIVE); KETONES,URINE 20 mg/dL (NEGATIVE); LEUKOCYTE ESTERASE,URINE NEGATIVE (NEGATIVE); NITRITE,URINE NEGATIVE (NEGATIVE); PROTEIN,URINE NEGATIVE (NEGATIVE); URINE SPECIFIC GRAVITY 1.014
[2020-05-29 20:08] VITALS: BP 154/104
== END 2020-05-29 20:06 | disposition home or self-care (01) ==
LOC: ER 13:13
DX: E11.621 Type 2 diabetes mellitus with foot ulcer (principal); L97.429 Non-pressure chronic ulcer of left heel and midfoot with unspecified severity; D64.9 Anemia, unspecified; E11.51 Type 2 diabetes mellitus with diabetic peripheral angiopathy without gangrene; I11.0 Hypertensive heart disease with heart failure; I50.9 Heart failure, unspecified; E78.00 Pure hypercholesterolemia, unspecified; I25.10 Atherosclerotic heart disease of native coronary artery without angina pectoris; I25.2 Old myocardial infarction; J44.9 Chronic obstructive pulmonary disease, unspecified; E03.9 Hypothyroidism, unspecified; F32.9 Major depressive disorder, single episode, unspecified; K21.9 Gastro-esophageal reflux disease without esophagitis; Z79.51 Long term (current) use of inhaled steroids; Z79.4 Long term (current) use of insulin; Z79.899 Other long term (current) drug therapy; Z79.891 Long term (current) use of opiate analgesic; Z95.1 Presence of aortocoronary bypass graft; Z95.5 Presence of coronary angioplasty implant and graft; Z88.1 Allergy status to other antibiotic agents; Z88.6 Allergy status to analgesic agent; Z88.5 Allergy status to narcotic agent; Z88.8 Allergy status to other drugs, medicaments and biological substances; Z88.0 Allergy status to penicillin; Z88.2 Allergy status to sulfonamides
CPT/HCPCS: 99284; 36415; 85025; 80053; 81001; 73630; A9270; J1642

== ENCOUNTER 2020-06-05 07:20 | Outpatient (CLI) | payer MEDICARE, MEDICAID ==
[~2020-06-05 07:20] MED LIST changes: -FERRIC CARBOXYMALTOSE 750 MG in NORMAL SALINE 250 ML IV PRN; +IRON DEXTRAN COMPLEX 800 MG in NORMAL SALINE 500 ML IV PRN
[2020-06-05 09:38] VITALS: BP 127/65
== END 2020-06-05 12:06 | disposition home or self-care (01) ==
LOC: II 07:20 → 5TH 07:24 → II 12:06
PROVIDERS: ATTEND Internal Medicine Hematology & Oncology
DX: D50.9 Iron deficiency anemia, unspecified (principal); K90.9 Intestinal malabsorption, unspecified
CPT/HCPCS: 96365; 96366; J1750; J7040; J1642

== ENCOUNTER 2020-07-16 14:47 | Emergency (ER) | payer MEDICARE, MEDICAID ==
[2020-07-16 14:55] VITALS: BP 120/90
--- NOTE | 2020-07-16 15:47 | ER Document Report ---
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 Patient has a chronic wound to her left foot, her physician is concerned that the infection is now in the bone. Dressing intact to left foot and ankle. I have greeted and performed a rapid initial assessment of this patient. A comprehensive ED assessment and evaluation of the patient, analysis of test results and completion of the medical decision making process will be conducted by additional ED providers. I have specifically instructed the patient or family members with the patient to immediately return to any nursing staff should anything change in the patient's condition or with their chief complaint. TRAVEL OUTSIDE OF THE [place] IN LAST 30 DAYS: No - Related Data Allergies/Adverse Reactions: cephalexin monohydrate [From Keflex] Allergy (Unknown, Verified 05/29/20 15:07) codeine [Codeine] Allergy (Unknown, Verified 05/29/20 15:07) dicyclomine HCl [From Bentyl] Allergy (Unknown, Verified 05/29/20 15:07) hydrocodone bitartrate [From Vicodin] Allergy (Unknown, Verified 05/29/20 15:07) meloxicam [From Mobic] Allergy (Unknown, Verified 05/29/20 15:07) meperidine HCl [From Demerol (PF)] Allergy (Unknown, Verified 05/29/20 15:07) morphine [Morphine] Allergy (Unknown, Verified 05/29/20 15:07) naproxen sodium [From Naprelan CR Dosepak] Allergy (Unknown, Verified 05/29/20 15:07) nitrofurantoin [From Macrobid] Allergy (Unknown, Verified 05/29/20 15:07) pantoprazole sodium [From Protonix] Allergy (Unknown, Verified 05/29/20 15:07) Penicillins Allergy (Unknown, Verified 05/29/20 15:07) Sulfa (Sulfonamide Antibiotics) Allergy (Unknown, Verified 05/29/20 15:07) aspirin Allergy (Verified 05/29/20 15:07) lamotrigine [From Lamictal] Allergy (Verified 05/29/20 15:07) rash Past Medical History - Social History Family history: Reviewed & Not Pertinent - Past Medical History Cardiac Medical History: Reports: Hx Congestive Heart Failure, Hx Coronary Artery Disease, Hx Heart Attack, Hx Hypercholesterolemia, Hx Hypertension, Hx Peripheral Vascular Disease Denies: Hx Heart Murmur Pulmonary Medical History: Reports: Hx Asthma, Hx COPD, Hx Sleep Apnea Denies: Hx Bronchitis, Hx Pneumonia, Hx Respiratory Failure, Hx Tuberculosis Neurological Medical History: Reports: Hx Migraine. Denies: Hx Cerebrovascular Accident, Hx Seizures, Hx Parkinson's Disease Endocrine Medical History: Reports: Hx Diabetes Mellitus Type 2, Hx Hyperthyroidism, Hx Hypothyroidism Renal/ Medical History: Reports: Hx Renal Insufficiency. Denies: Hx End Stage Renal Disease, Hx Kidney Stones, Hx Peritoneal Dialysis Malignancy Medical History: GI Medical History: Reports: Hx Gastroesophageal Reflux Disease. Denies: Hx Cirrhosis, Hx Pancreatitis, Hx Ulcer Musculoskeltal Medical History: Reports Hx Arthritis, Reports Hx Fibromyalgia, Denies Hx Multiple Sclerosis, Reports Hx Muscle Weakness, Denies Hx Systemic Lupus Erythematosus Psychiatric Medical History: Reports: Hx Depression, Hx Post Traumatic Stress Disorder Denies: Hx Bipolar Disorder, Hx Schizophrenia Traumatic Medical History: Infectious Medical History: Past Surgical History: Reports: Hx Cardiac Catheterization, Hx Section - x2, Hx Coronary Artery Bypass Graft, Hx Coronary Stent - x2, Hx Hysterectomy, Hx Orthopedic Surgery, Hx Tubal Ligation, Other - multiple colonoscopies for lower GI bleed - Immunizations Hx Diphtheria, Pertussis, Tetanus Vaccination: Yes Physical Exam - Vital signs Vitals: Temp Pulse Resp BP Pulse Ox 98.4 F 112 H 16 120/90 H 97 07/16/20 14:53 07/16/20 14:53 07/16/20 14:53 07/16/20 14:53 07/16/20 14:53 Course - Vital Signs Vital signs: Temp Pulse Resp BP Pulse Ox 98.4 F 112 H 16 120/90 H 97 07/16/20 14:53 07/16/20 14:53 07/16/20 14:53 07/16/20 14:53 07/16/20 14:53 Doctor's Discharge - Discharge Referrals: LORIE GOLDSMITH DPM [Primary Care Provider] - Follow up as needed
--- NOTE | 2020-07-16 16:35 | RADIOLOGY REPORT (SQ) ---
EXAM DESCRIPTION: FOOT LEFT COMPLETE IMAGES COMPLETED DATE/TIME: 07/16/2020 3:53 pm REASON FOR STUDY: eval for osteomyelitis COMPARISON: 05/29/2020 NUMBER OF VIEWS: Three views. TECHNIQUE: AP, lateral and oblique radiographic images acquired of the left foot. LIMITATIONS: None. FINDINGS: Periosteal reaction at the plantar aspect of presumed pathologic fracture of the head of t he 5th metatarsal with plantar displacement of the fracture fragment. IMPRESSION: Osteomyelitis associated with pathologic fracture of the head of the 5th metatarsal. TECHNICAL DOCUMENTATION: JOB ID: [id number] 2010 [employer]- All Rights Reserved Reading location - IP/workstation name: [email or web address]
== END 2020-07-16 17:30 | disposition left against medical advice (07) ==
LOC: ER 14:47
DX: E11.69 Type 2 diabetes mellitus with other specified complication (principal); M86.9 Osteomyelitis, unspecified; M84.475A Pathological fracture, left foot, initial encounter for fracture; E11.51 Type 2 diabetes mellitus with diabetic peripheral angiopathy without gangrene; I25.10 Atherosclerotic heart disease of native coronary artery without angina pectoris; I10 Essential (primary) hypertension; J44.9 Chronic obstructive pulmonary disease, unspecified; Z95.1 Presence of aortocoronary bypass graft; Z95.5 Presence of coronary angioplasty implant and graft; Z88.1 Allergy status to other antibiotic agents; Z88.6 Allergy status to analgesic agent; Z88.5 Allergy status to narcotic agent; Z88.8 Allergy status to other drugs, medicaments and biological substances; Z88.2 Allergy status to sulfonamides; Z53.20 Procedure and treatment not carried out because of patient's decision for unspecified reasons
CPT/HCPCS: 99281

== ENCOUNTER 2020-07-17 19:40 | Emergency (ER) | payer MEDICARE, MEDICAID ==
[2020-07-17 20:18] VITALS: BP 118/65
== END 2020-07-17 21:15 | disposition left against medical advice (07) ==
LOC: ER 19:40
DX: Z53.21 Procedure and treatment not carried out due to patient leaving prior to being seen by health care provider (principal)

== ENCOUNTER 2020-07-21 15:42 | Inpatient (IN) | payer MEDICARE, MEDICAID ==
--- NOTE | 2020-07-21 17:03 | ER Document Report ---
ED General - General Chief Complaint: Foot Pain Stated Complaint: FOOT PAIN Time Seen by Provider: 07/21/20 17:01 TRAVEL OUTSIDE OF THE [place] IN LAST 30 DAYS: No - HPI Notes: 60-year-old female presents with a wound to her left foot. Patient states she has a diabetic ulcer. Over the past couple months it has developed into a big hole and is always infected. States she has multiple allergies to antibiotics and therefore has not really never been on antibiotics. There is a foul- smelling drainage. Patient states that she saw Dr. Wylie who is her wound care doctor, instructed to come to the ED for osteomyelitis. Patient has been seen in the ED multiple times in the past week and has left AMA. She states that this is because she does not like this hospital, however she is given the doctor her word that she will stay for admission at this time. She reports pain to the foot, worse with ambulation. - Related Data Allergies/Adverse Reactions: cephalexin monohydrate [From Keflex] Allergy (Unknown, Verified 05/29/20 15:07) codeine [Codeine] Allergy (Unknown, Verified 05/29/20 15:07) dicyclomine HCl [From Bentyl] Allergy (Unknown, Verified 05/29/20 15:07) hydrocodone bitartrate [From Vicodin] Allergy (Unknown, Verified 05/29/20 15:07) meloxicam [From Mobic] Allergy (Unknown, Verified 05/29/20 15:07) meperidine HCl [From Demerol (PF)] Allergy (Unknown, Verified 05/29/20 15:07) morphine [Morphine] Allergy (Unknown, Verified 05/29/20 15:07) naproxen sodium [From Naprelan CR Dosepak] Allergy (Unknown, Verified 05/29/20 15:07) nitrofurantoin [From Macrobid] Allergy (Unknown, Verified 05/29/20 15:07) pantoprazole sodium [From Protonix] Allergy (Unknown, Verified 05/29/20 15:07) Penicillins Allergy (Unknown, Verified 05/29/20 15:07) Sulfa (Sulfonamide Antibiotics) Allergy (Unknown, Verified 05/29/20 15:07) aspirin Allergy (Verified 05/29/20 15:07) lamotrigine [From Lamictal] Allergy (Verified 05/29/20 15:07) rash Past Medical History - General Information source: Patient - Social History Smoking Status: Never Smoker Family History: Hypertension - Past Medical History Cardiac Medical History: Reports: Hx Congestive Heart Failure, Hx Coronary Artery Disease, Hx Heart Attack, Hx Hypercholesterolemia, Hx Hypertension, Hx Peripheral Vascular Disease Denies: Hx Heart Murmur Pulmonary Medical History: Reports: Hx Asthma, Hx COPD, Hx Sleep Apnea Denies: Hx Bronchitis, Hx Pneumonia, Hx Respiratory Failure, Hx Tuberculosis Neurological Medical History: Reports: Hx Migraine. Denies: Hx Cerebrovascular Accident, Hx Seizures, Hx Parkinson's Disease Endocrine Medical History: Reports: Hx Diabetes Mellitus Type 2, Hx Hyperthyroidism, Hx Hypothyroidism Renal/ Medical History: Reports: Hx Renal Insufficiency. Denies: Hx End Stage Renal Disease, Hx Kidney Stones, Hx Peritoneal Dialysis Malignancy Medical History: GI Medical History: Reports: Hx Gastroesophageal Reflux Disease. Denies: Hx Cirrhosis, Hx Pancreatitis, Hx Ulcer Musculoskeletal Medical History: Reports Hx Arthritis, Reports Hx Fibromyalgia, Denies Hx Multiple Sclerosis, Reports Hx Muscle Weakness, Denies Hx Systemic L upus Erythematosus Psychiatric Medical History: Reports: Hx Depression, Hx Post Traumatic Stress Disorder Denies: Hx Bipolar Disorder, Hx Schizophrenia Traumatic Medical History: Infectious Medical History: Past Surgical History: Reports: Hx Cardiac Catheterization, Hx Section - x2, Hx Coronary Artery Bypass Graft, Hx Coronary Stent - x2, Hx Hysterectomy, Hx Orthopedic Surgery, Hx Tubal Ligation, Other - multiple colonoscopies for low er GI bleed - Immunizations Hx Diphtheria, Pertussis, Tetanus Vaccination: Yes Hx Pneumococcal Vaccination: 04/02/13 Review of Systems - Review of Systems Constitutional: denies: Chills, Fever EENT: No symptoms reported Cardiovascular: denies: Chest pain Respiratory: denies: Short of breath Gastrointestinal: Vomiting - A few days ago, none today. denies: Abdominal pa in, Diarrhea, Nausea Genitourinary: No symptoms reported Female Genitourinary: No symptoms reported Musculoskeletal: Joint pain Skin: Other - Wound Hematologic/Lymphatic: No symptoms reported Neurological/Psychological: No symptoms reported Physical Exam - Vital signs Vitals: Temp Pulse Resp BP Pulse Ox 99.5 F 100 20 111/62 99 07/21/20 15:51 07/21/20 15:51 07/21/20 15:51 07/21/20 15:51 07/21/20 15:51 - General General appearance: Appears well, Alert In distress: None - HEENT Head: Normocephalic, Atraumatic Extraocular movements intact: Yes Pupils: PERRL - Respiratory Breath sounds: Normal - Cardiovascular Rhythm: Regular Heart sounds: Normal auscultation Pulses: Normal: Dorsalis pedis Normal capillary refill: Yes - Abdominal Inspection: Obese Tenderness: Nontender - Extremities General lower extremity: No: Edema Notes: There is a deep ulcer to the plantar aspect of left foot, overlying the fifth metatarsal head region. It is foul-smelling, however not frankly purulent. A dark peña stained piece of gauze was removed - Neurological Neuro grossly intact: Yes Cognition: Normal Orientation: AAOx4 - Psychological Associated symptoms: Normal affect - Skin Skin Temperature: Warm Course - Re-evaluation Re-evalutation: 60-year-old female with diabetic foot ulcer to the left plantar aspect of fifth foot, followed by wound care, effectively has really not been on antibiotics due to multiple reported allergies. Was most recently on doxycycline however patient reported caused her to itch/have a rash. There is a large ulcer present to the foot, a necrotic piece of gauze was removed, no celina purulence though there is a strong odor. She is afebrile, hemodynamically stable. I suspect that this is likely osteomyelitis. She was seen in the ED on 07/16 with an x-ray demonstrating possible pathologic fracture. No other symptoms. She does not appear to be overtly septic. Have ordered linezolid for empiric coverage. 07/21/20 17:52 Reviewed x-ray, about half of the fifth metatarsal has been eroded from osteomyelitis. Discussed with the hospitalist team for admission. Have asked that surgery be consulted 07/21/20 17:53 Surgery paged 07/21/20 18:18 surgery paged 07/21/20 18:36 surgery paged 07/21/20 19:53 Surgery to see patient - Vital Signs Vital signs: Temp Pulse Resp BP Pulse Ox 99.5 F 100 20 111/62 99 07/21/20 15:51 07/21/20 15:51 07/21/20 15:51 07/21/20 15:51 07/21/20 15:51 - Laboratory Results Result Diagrams: 07/21/20 16:36 07/21/20 16:36 Laboratory Results Interpreted: 07/21/20 07/21/20 07/21/20 16:36 16:36 16:36 Hgb 9.1 L Hct 28.5 L MCV 71 L MCH 22.5 L MCHC 31.9 L RDW 23.9 H BUN 21 H Glucose 74 L Alkaline Phosphatase 213 H C-Reactive Protein 28.0 H Critical Laboratory Results Reviewed: No Critical Results - Radiology Results Critical Radiology Results Reviewed: No Critical Results Discharge - Discharge Clinical Impression: Diabetic foot ulcer associated with type 2 diabetes mellitus Qualifiers: Diabetic foot ulcer location: midfoot Laterality: left Non-pressure ulcer stage: with necrosis of bone Qualified Code(s): E11.621 - Type 2 diabetes mellitus with foot ulcer Disposition: ADMITTED INPATIENT Admitting Provider: Altaf (Hospitalist) Unit Admitted: Medical Floor
[2020-07-21 17:12] LABS: ABSOLUTE BASOPHILS # (AUTO) 0.1 10^3/uL (0.0-0.2); ABSOLUTE EOSINOPHILS # (AUTO) 0.2 10^3/uL (0.0-0.6); ABSOLUTE LYMPHOCYTES (AUTO) 2.1 10^3/uL (0.5-4.7); ABSOLUTE MONOCYTES (AUTO) 0.8 10^3/uL (0.1-1.4); ABSOLUTE NEUT (AUTO) 3.9 10^3/uL (1.7-8.2); BASOPHILS % (AUTO) 0.9 % (0-2); EOSINOPHILS % (AUTO) 2.2 % (0-6); HEMATOCRIT 28.5 % (36.0-47.0); HEMOGLOBIN 9.1 g/dL (12.0-15.5); LYMPHOCYTES % (AUTO) 29.8 % (13-45); MEAN CORPUSCULAR HEMOGLOBIN 22.5 pg (27.0-33.4); MEAN CORPUSCULAR HGB CONC 31.9 g/dL (32.0-36.0); MEAN CORPUSCULAR VOLUME 71 fl (80-97); MONOCYTES % (AUTO) 11.3 % (3-13); PLATELET COUNT 320 10^3/uL (150-450); RED BLOOD COUNT 4.04 10^6/uL (3.72-5.28); RED CELL DISTRIBUTION WIDTH 23.9 % (11.5-14.0); SEGMENTED NEUTROPHILS % (AUTO) 55.8 % (42-78); TOTAL CELLS COUNTED % (AUTO) 100 %
[2020-07-21 17:15] LABS: ALBUMIN 3.6 g/dL (3.5-5.0); ALKALINE PHOSPHATASE 213 U/L (38-126); ANION GAP 12 (5-19); ASPARTATE AMINO TRANSFERASE 27 U/L (14-36); BILIRUBIN,DIRECT 0.3 mg/dL (0.0-0.4); BILIRUBIN,TOTAL 0.3 mg/dL (0.2-1.3); BLOOD UREA NITROGEN 21 mg/dL (7-20); CALCIUM 9.5 mg/dL (8.4-10.2); CARBON DIOXIDE 24 mmol/L (22-30); CHLORIDE 105 mmol/L (98-107); GLUCOSE 74 mg/dL (75-110); TOTAL PROTEIN 7.5 g/dL (6.3-8.2)
[2020-07-21] MEDS ORDERED: LINEZOLID 600 MG/300 ML RTUPB IV ONE (17:18)
--- NOTE | 2020-07-21 18:25 | RADIOLOGY REPORT (SQ) ---
EXAM DESCRIPTION: FOOT LEFT COMPLETE IMAGES COMPLETED DATE/TIME: 07/21/2020 5:43 pm REASON FOR STUDY: L plantar ulcer, eval gas COMPARISON: None. NUMBER OF VIEWS: Three views. TECHNIQUE: AP, lateral and oblique radiographic images acquired of the left foot. LIMITATIONS: None. FINDINGS: MINERALIZATION: Normal. BONES: Resection of the distal 5th metatarsal. JOINTS: No effusions. SOFT TISSUES: Plantar ulcer is seen at the level of the head of the 5th metatarsal. No air is seen w ithin the soft tissues. Of course air is seen in the ulcer. OTHER: No other significant finding. IMPRESSION: There is no evidence of soft tissue infection with an air forming organism. The only ai r seen is in the ulcer itself. TECHNICAL DOCUMENTATION: JOB ID: [id number] 2010 [employer]- All Rights Reserved Reading location - IP/workstation name: [email or web address]
[2020-07-21] MEDS ORDERED: ALBUTEROL SULFATE 0.083% NEB 2.5 MG/3 ML AMPUL NEB PRN (18:58)
[2020-07-21] MEDS ORDERED: ACETAMINOPHEN 325 MG TABLET PO PRN (18:58)
[2020-07-21] MEDS ORDERED: ONDANSETRON 4 MG TAB.RAPDIS PO PRN (18:58)
[2020-07-21] MEDS ORDERED: DEXTROSE 40% GEL 15 GM TUBE PO PRN ×2 (19:13)
[2020-07-21] MEDS ORDERED: DEXTROSE 50%-WATER 25 GM/50 ML DISP.SYRIN IV PRN ×2 (19:13)
[2020-07-21] MEDS ORDERED: GLUCAGON,HUMAN RECOMB 1 MG INJ IM PRN (19:13)
--- NOTE | 2020-07-21 20:01 | PDOC H&P ---
History of Present Illness Admission Date/PCP: TONI BHATTI MD Patient complains of: Left foot ulcer History of Present Illness: SANTOS NAVARRO is a 60 year old female with PMHx DMII, extensive psychiatric history (schizoaffective disorder, bipolar I disorder), CHF, HTN, COPD, CKD, anemia, MARIOLA, CAD with Stent who is a poor historian and historically medically non- compliant who was referred to the ED today by wound-care Dr. Wylie for chronic diabetic ulcer left foot. Patient has been evaluated in the ED on several occasions past month for ulcer and has left AMA. Reports several month hx progressively DM plantar aspect left foot in the area of left 5th metatarsal pad. Reports drainage. Reports associated pain, primarily with ambulation. Notes history of allergies to multiple medications, thus has not received abx tx for this in the past. Evaluation in the ED VSS. Hematology notable for RBC 9.1; without white count. BUN elevated at 21. CRP minimally elevated at 28. Foot x-ray without evidence soft tissue infection, notable ulcer. Hospitalist team is consulted for further evaluation management. Past Medical History Cardiac Medical History: Reports: Congestive Heart Failure, Coronary Artery Disease, Myocardial Infarction, Hyperlipidema, Hypertension, Peripheral Vascular Disease Denies: Heart Murmur Pulmonary Medical History: Reports: Asthma, Chronic Obstructive Pulmonary Disease (COPD), Sleep Apnea Denies: Bronchitis, Pneumonia, Respiratory Failure, Tuberculosis Neurological Medical History: Reports: Migraine Denies: Seizures Endocrine Medical History: Reports: Diabetes Mellitus Type 2, Hyperthyroidism, Hypothyroidism Renal/ Medical History: Denies: End Stage Renal Disease Malignancy Medical History: GI Medical History: Reports: Gastroesophageal Reflux Disease Denies: Cirrhosis Musculoskeltal Medical History: Reports: Arthritis, Fibromyalgia Psychiatric Medical History: Reports: Depression, Post Traumatic Stress Disorder Denies: Bipolar Disorder Hematology: Reports: Anemia, Bleeding Tendencies Denies: Hemophilia, Sickle Cell Disease Infectious Medical History: Past Surgical History Past Surgical History: Reports: Cardiac Catheterization, Section - x2, Coronary Artery Bypass Graft, Coronary Stent - x2, Hysterectomy, Orthopedic Surgery, Tubal Ligation, Other - multiple colonoscopies for lower GI bleed Denies: Amputation Social History Information Source: Patient Lives with: Alone Smoking Status: Never Smoker Electronic Cigarette use?: No Frequency of Alcohol Use: None Hx Recreational Drug Use: No Drugs: None Hx Prescription Drug Abuse: No - Advance Directive Resuscitation Status: Full Code Family History Family History: Hypertension Parental Family History Reviewed: Yes Children Family History Reviewed: Yes Sibling(s) Family History Reviewed.: Yes Medication/Allergy Home Medications: Albuterol Sulfate [Proair HFA Inhalation Aerosol 8.5 gm MDI] 2 puff IH Q6HP PRN 12/07/18 Atorvastatin Calcium [Lipitor 40 mg Tablet] 40 mg PO QHS 12/07/18 Benztropine Mesylate [Cogentin 1 mg Tablet] 1 mg PO Q12 12/07/18 Budesonide/Formoterol Fumarate [Symbicort HFA 160-4.5 mcg Inhaler 6 gm] 2 puff IH Q12 12/07/18 Duloxetine HCl [Cymbalta] 30 mg PO Q12 12/07/18 Gabapentin [Neurontin 300 mg Capsule] 600 mg PO Q8 12/07/18 Levothyroxine Sodium 50 mcg PO Q6AM 12/07/18 Nitroglycerin [Nitro-Dur 5 mg (0.2 mg/Hr) Transdermal Patch] 1 patch TD DAILY 12/07/18 Omeprazole 40 mg PO Q12 12/07/18 Naloxegol Oxalate [Movantik 25 mg Tablet] 25 mg PO QAM 06/20/19 Cyanocobalamin (Vitamin B-12) [Vitamin B-12 Inj 1000 Mcg/1 ml Vial] 1 ml IM .MONTHLY 03/31/20 Lurasidone HCl [Latuda 40 mg Tablet] 80 mg PO QAM 03/31/20 Sitagliptin Phosphate [Januvia 50 mg Tablet] 50 mg PO QAM 03/31/20 Trazodone HCl 100 mg PO QHS 03/31/20 Furosemide [Lasix 40 mg Tablet] 40 mg PO DAILY #30 tablet 04/07/20 Albuterol Sulfate [Ventolin 0.083% Neb 2.5 mg/3 mL Ampul] 3 ml NEB RTTID 07/21/20 Insulin Glargine,Hum.rec.anlog [Lantus Insulin 100 Unit/1 ml 10 ml] 55 unit SUBCUT QAM 07/21/20 Insulin Glargine,Hum.rec.anlog [Lantus Insulin 100 Unit/1 ml 10 ml] 65 units SQ QHS 07/21/20 Insulin Lispro [Humalog Insulin (Lispro) 100 unit/mL] 0 units SQ .PERSLIDINGSCALE 07/21/20 Irbesartan 150 mg PO QPM 07/21/20 Ondansetron [Zofran Odt 4 mg Tablet] 4 mg PO Q4HP PRN 07/21/20 Oxycodone HCl/Acetaminophen [Percocet 7.5-325 mg Tablet] 1 tab PO QIDP PRN 07/21/20 Polyethylene Glycol 3350 [Miralax Powder 17 gm/Packet] 17 gm PO DAILY 07/21/20 Zolpidem Tartrate [Ambien] 10 mg PO HSP PRN 07/21/20 Allergies/Adverse Reactions: cephalexin monohydrate [From Keflex] Allergy (Unknown, Verified 05/29/20 15:07) codeine [Codeine] Allergy (Unknown, Verified 05/29/20 15:07) dicyclomine HCl [From Bentyl] Allergy (Unknown, Verified 05/29/20 15:07) hydrocodone bitartrate [From Vicodin] Allergy (Unknown, Verified 05/29/20 15:07) meloxicam [From Mobic] Allergy (Unknown, Verified 05/29/20 15:07) meperidine HCl [From Demerol (PF)] Allergy (Unknown, Verified 05/29/20 15:07) morphine [Morphine] Allergy (Unknown, Verified 05/29/20 15:07) naproxen sodium [From Naprelan CR Dosepak] Allergy (Unknown, Verified 05/29/20 15:07) nitrofurantoin [From Macrobid] Allergy (Unknown, Verified 05/29/20 15:07) pantoprazole sodium [From Protonix] Allergy (Unknown, Verified 05/29/20 15:07) Penicillins Allergy (Unknown, Verified 05/29/20 15:07) Sulfa (Sulfonamide Antibiotics) Allergy (Unknown, Verified 05/29/20 15:07) aspirin Allergy (Verified 05/29/20 15:07) lamotrigine [From Lamictal] Allergy (Verified 05/29/20 15:07) rash Review of Systems Constitutional: ABSENT: fatigue, fever(s), headache(s), weakness Eyes: ABSENT: visual disturbances Cardiovascular: ABSENT: chest pain, edema, orthropnea, palpitations Respiratory: ABSENT: cough, dyspnea Gastrointestinal: ABSENT: abdominal pain, diarrhea, nausea, vomiting Genitourinary: ABSENT: difficulty urinating, dysuria, hematuria Musculoskeletal: PRESENT: other - Left foot ulcer. ABSENT: back pain Neurological: ABSENT: syncope, weakness Psychiatric: PRESENT: anxiety, depression. ABSENT: homidical ideation, suicidal ideation Endocrine: ABSENT: cold intolerance Hematologic/Lymphatic: ABSENT: easy bruising, lymphadenopathy Physical Exam General appearance: PRESENT: no acute distress, obese Head exam: PRESENT: atraumatic, normocephalic Eye exam: PRESENT: EOMI, PERRLA. ABSENT: scleral icterus Teeth exam: PRESENT: poor dentation Neck exam: PRESENT: full ROM. ABSENT: JVD Respiratory exam: PRESENT: clear to auscultation christine, symmetrical, unlabored. ABSENT: tachypnea, wheezes Cardiovascular exam: PRESENT: RRR Pulses: PRESENT: normal radial pulses, normal dorsalis pedis pul GI/Abdominal exam: PRESENT: soft, other - Obese. ABSENT: tenderness Rectal exam: PRESENT: deferred Extremities exam: PRESENT: full ROM. ABSENT: +2 edema Musculoskeletal exam: PRESENT: full ROM Neurological exam: PRESENT: alert, awake, oriented to person, oriented to place, oriented to time, oriented to situation, CN II-XII grossly intact. ABSENT: motor sensory deficit Psychiatric exam: PRESENT: normal mood Skin exam: PRESENT: dry, intact, warm, other - ~3cm deep ulcer plantar aspect left metatarsal head. Without assoicated erythema, edema or warmth. Results Laboratory Results: 07/21/20 16:36 07/21/20 16:36 07/21/20 07/21/20 07/21/20 16:36 16:36 16:36 WBC 7.0 RBC 4.04 Hgb 9.1 L Hct 28.5 L MCV 71 L MCH 22.5 L MCHC 31.9 L RDW 23.9 H Plt Count 320 Seg Neutrophils % 55.8 Sodium 140.5 Potassium 4.0 Chloride 105 Carbon Dioxide 24 Anion Gap 12 BUN 21 H Creatinine 0.95 Est GFR ( Amer) > 60 Glucose 74 L Lactic Acid 0.9 Calcium 9.5 Total Bilirubin 0.3 AST 27 Alkaline Phosphatase 213 H C-Reactive Protein Total Protein 7.5 Albumin 3.6 07/21/20 16:36 WBC RBC Hgb Hct MCV MCH MCHC RDW Plt Count Seg Neutrophils % Sodium Potassium Chloride Carbon Dioxide Anion Gap BUN Creatinine Est GFR ( Amer) Glucose Lactic Acid Calcium Total Bilirubin AST Alkaline Phosphatase C-Reactive Protein 28.0 H Total Protein Albumin Impressions: Foot X-Ray 07/21/20 17:16 IMPRESSION: There is no evidence of soft tissue infection with an air forming organism. The only air seen is in the ulcer itself. Assessment and Plan - Diagnosis (1) Diabetic foot ulcer associated with type 2 diabetes mellitus Qualifiers: Diabetic foot ulcer location: midfoot Laterality: left Non-pressure ulcer stage: with necrosis of bone Qualified Code(s): E11.621 - Type 2 diabetes mellitus with foot ulcer; L97.424 - Non-pressure chronic ulcer of left heel and midfoot with necrosis of bone Is this a current diagnosis for this admission?: Yes Plan: CRP minimally elevated at 28. Left foot Xray: without evidence soft tissue infection, notable ulcer. Without white count, erythema, edema or warmth. Not previously treated with abx given extensive hx of allergies to abx. Will consult infectious disease for abx recommendation. Surgery consulted in the Ed, appreciate their recommendations. Will likely need amputation/debridement in the future, once medically stable. (2) Depression Is this a current diagnosis for this admission?: Yes Plan: Patient is a poor historian and unable to tell me what medication she is currently taking. VS notes reviewed patient with history of schizoaffective disorder, anxiety and depression. Previous medications were reviewed. She appears to be on a number of psych medications. Will contact [facility] for current medications prescribed. We will consult psych for appropriate psychiatric medications moving forward. For time being we will continue minimal psychiatric medications including BuSpar and duloxetine. (3) Diabetes mellitus Qualifiers: Diabetes mellitus type: type 2 Diabetes mellitus teleprinter insulin use: unspecified teleprinter insulin use status Diabetes mellitus complication status: with other specified complication Qualified Code(s): E11.69 - Type 2 diabetes mellitus with other specified complication Is this a current diagnosis for this admission?: Yes Plan: Patient is a poor historian and unable to tell me her current diabetic regimen. [facility] We will check A1c with a.m. lab work. Patient is placed on a consistent carb diet. Accu-Cheks before meals and at bedtime with Humalog for sliding scale coverage. Hypoglycemia protocol in place. Registered dietitian malariologist consulted. (4) HTN (hypertension) Qualifiers: Hypertension type: essential hypertension Qualified Code(s): I10 - Essential (primary) hypertension Is this a current diagnosis for this admission?: Yes Plan: Patient poor historian unable to tell me current medication she is taking. Previous medications reviewed previously taking Irbesartan at home. Will initiate Cozaar for time being. Monitor blood pressure. (5) Anemia Is this a current diagnosis for this admission?: Yes Plan: Patient with history of chronic anemia. Followed by oncology. Has historically received ion transfusions in the past. Hemoglobin 9.1 today, previous labs reviewed this is stable and at her baseline. Will consult oncology. (6) Hypothyroidism Is this a current diagnosis for this admission?: Yes Plan: Patient with history of hypothyroidism. Unable to tell me what medication she is taking or the current dose. Previous records reviewed, on levothyroxine. Will resume this dose. Free T4 and TSH in the morning. (7) COPD without exacerbation Is this a current diagnosis for this admission?: Yes Plan: Hx COPD utilizes albuterol and Symbicort. Not in acute exacerbation at this time. Continue home medications. (8) CAD (coronary artery disease) Qualifiers: Coronary Disease-Associated Artery/Lesion type: [place] artery [place] vs. transplanted heart: [place] heart Associated angina: without angina Qualified Code(s): I25.10 - Atherosclerotic heart disease of [place] coronary artery without angina pectoris Is this a current diagnosis for this admission?: Yes Plan: With history of coronary artery disease. Plan to contact [facility] tomorrow for current medications as patient is unable to communicate this to me. Previous notes reviewed with history of stent x2. Statin and aspirin daily. (9) CHF (congestive heart failure) Is this a current diagnosis for this admission?: Yes Plan: Patient with history congestive heart failure. Not in acute exacerbation at this time. Unable to communicate if she is on medications for this at this time. Will contact her [facility] tomorrow to figure out medications. Previous notes reviewed patient previously tx'd with lasix 40mg daily, will continue this at this time. Limit intake, monitor I&Os, low sodium diet. (10) GERD (gastroesophageal reflux disease) Is this a current diagnosis for this admission?: Yes Plan: History reflux. Initiate PPI management. - Time Time Spent with patient: 35 or more minutes Medications reviewed and adjusted accordingly: Yes Anticipated Discharge Disposition: Home, Self Care Anticipated Discharge Timeframe: within 72 hours - Inpatient Certification Based on my medical assessment, after consideration of the patient's comorbidities, presenting symptoms, or acuity I expect that the services needed warrant INPATIENT care.: Yes I certify that my determination is in accordance with my understanding of Medicare's requirements for reasonable and necessary INPATIENT services [42 CFR 412.3e].: Yes Medical Necessity: Failure to Improve With Outpatient Therapy, Significant Comorbidiites Make Outpatient Treatment Too Risky, Need for Surgery Post Hospital Care: D/C or Transfer Summary
--- NOTE | 2020-07-21 21:07 | PDOC CONSULTATION ---
Consultation Consult Date: 07/21/20 Attending physician:: GLENIS HANSON Provider Consulted: JOSE LANDEROS Consult reason:: left diabetic foot ulcer History of Present Illness Admission Date/PCP: 07/21/20 19:32 TONI BHATTI MD History of Present Illness: SANTOS NAVARRO is a 60 year old femalewith PMHx DMII, extensive psychiatric history (schizoaffective disorder, bipolar I disorder), CHF, HTN, COPD, CKD, anemia, MARIOLA, CAD with Stent who is a poor historian and historically medically non- compliant who was referred to the ED today by wound-care Dr. Wylie for chronic diabetic ulcer left foot. Patient has been evaluated in the ED on several occasions past month for ulcer and has left AMA. Reports several month hx progressively DM plantar aspect left foot in the area of left 5th metatarsal pad. Reports drainage. Reports associated pain, primarily with ambulation. Notes history of allergies to multiple medications, thus has not received abx tx for this in the past. Evaluation in the ED VSS. Hematology notable for WBC 9.1; without white count. BUN elevated at 21. CRP minimally elevated at 28. Foot x-ray without evidence soft tissue infection, notable ulcer. Hospitalist team is consulted for further evaluation management Past Medical History Cardiac Medical History: Reports: Congestive Heart Failure, Coronary Artery Disease, Myocardial Infarction, Hyperlipidema, Hypertension, Peripheral Vascular Disease Denies: Heart Murmur Pulmonary Medical History: Reports: Asthma, Chronic Obstructive Pulmonary Disease (COPD), Sleep Apnea Denies: Bronchitis, Pneumonia, Respiratory Failure, Tuberculosis Neurological Medical History: Reports: Migraine Denies: Seizures Endocrine Medical History: Reports: Diabetes Mellitus Type 2, Hyperthyroidism, Hypothyroidism Renal/ Medical History: Denies: End Stage Renal Disease Malignancy Medical History: GI Medical History: Reports: Gastroesophageal Reflux Disease Denies: Cirrhosis Musculoskeltal Medical History: Reports: Arthritis, Fibromyalgia Psychiatric Medical History: Reports: Depression, Post Traumatic Stress Disorder Denies: Bipolar Disorder Hematology: Reports: Anemia, Bleeding Tendencies Denies: Hemophilia, Sickle Cell Disease Infectious Medical History: Past Surgical History Past Surgical History: Reports: Cardiac Catheterization, Section - x2, Coronary Artery Bypass Graft, Coronary Stent - x2, Hysterectomy, Orthopedic Surgery, Tubal Ligation, Other - multiple colonoscopies for lower GI bleed Denies: Amputation Social History Lives with: Alone Smoking Status: Never Smoker Electronic Cigarette use?: No Frequency of Alcohol Use: None Hx Recreational Drug Use: No Drugs: None Hx Prescription Drug Abuse: No - Advance Directive Resuscitation Status: Full Code Family History Family History: Hypertension Parental Family History Reviewed: No Children Family History Reviewed: NA Sibling(s) Family History Reviewed.: NA Medication/Allergy Home Medications: Albuterol Sulfate [Proair HFA Inhalation Aerosol 8.5 gm MDI] 2 puff IH Q6HP PRN 12/07/18 Atorvastatin Calcium [Lipitor 40 mg Tablet] 40 mg PO QHS 12/07/18 Benztropine Mesylate [Cogentin 1 mg Tablet] 1 mg PO Q12 12/07/18 Budesonide/Formoterol Fumarate [Symbicort HFA 160-4.5 mcg Inhaler 6 gm] 2 puff IH Q12 12/07/18 Duloxetine HCl [Cymbalta] 30 mg PO Q12 12/07/18 Gabapentin [Neurontin 300 mg Capsule] 600 mg PO Q8 12/07/18 Levothyroxine Sodium 50 mcg PO Q6AM 12/07/18 Nitroglycerin [Nitro-Dur 5 mg (0.2 mg/Hr) Transdermal Patch] 1 patch TD DAILY 12/07/18 Omeprazole 40 mg PO Q12 12/07/18 Naloxegol Oxalate [Movantik 25 mg Tablet] 25 mg PO QAM 06/20/19 Cyanocobalamin (Vitamin B-12) [Vitamin B-12 Inj 1000 Mcg/1 ml Vial] 1 ml IM .MONTHLY 03/31/20 Lurasidone HCl [Latuda 40 mg Tablet] 80 mg PO QAM 03/31/20 Sitagliptin Phosphate [Januvia 50 mg Tablet] 50 mg PO QAM 03/31/20 Trazodone HCl 100 mg PO QHS 03/31/20 Furosemide [Lasix 40 mg Tablet] 40 mg PO DAILY #30 tablet 04/07/20 Albuterol Sulfate [Ventolin 0.083% Neb 2.5 mg/3 mL Ampul] 3 ml NEB RTTID 07/21/20 Insulin Glargine,Hum.rec.anlog [Lantus Insulin 100 Unit/1 ml 10 ml] 55 unit SUBCUT QAM 07/21/20 Insulin Glargine,Hum.rec.anlog [Lantus Insulin 100 Unit/1 ml 10 ml] 65 units SQ QHS 07/21/20 Insulin Lispro [Humalog Insulin (Lispro) 100 unit/mL] 0 units SQ .P ERSLIDINGSCALE 07/21/20 Irbesartan 150 mg PO QPM 07/21/20 Ondansetron [Zofran Odt 4 mg Tablet] 4 mg PO Q4HP PRN 07/21/20 Oxycodone HCl/Acetaminophen [Percocet 7.5-325 mg Tablet] 1 tab PO QIDP PRN 0 07/21/20 Polyethylene Glycol 3350 [Miralax Powder 17 gm/Packet] 17 gm PO DAILY 07/21/20 Zolpidem Tartrate [Ambien] 10 mg PO HSP PRN 07/21/20 Allergies/Adverse Reactions: cephalexin monohydrate [From Keflex] Allergy (Unknown, Verified 05/29/20 15:07) codeine [Codeine] Allergy (Unknown, Verified 05/29/20 15:07) dicyclomine HCl [From Bentyl] Allergy (Unknown, Verified 05/29/20 15:07) hydrocodone bitartrate [From Vicodin] Allergy (Unknown, Verified 05/29/20 15:07) meloxicam [From Mobic] Allergy (Unknown, Verified 05/29/20 15:07) meperidine HCl [From Demerol (PF)] Allergy (Unknown, Verified 05/29/20 15:07) morphine [Morphine] Allergy (Unknown, Verified 05/29/20 15:07) naproxen sodium [From Naprelan CR Dosepak] Allergy (Unknown, Verified 05/29/20 15:07) nitrofurantoin [From Macrobid] Allergy (Unknown, Verified 05/29/20 15:07) pantoprazole sodium [From Protonix] Allergy (Unknown, Verified 05/29/20 15:07) Penicillins Allergy (Unknown, Verified 05/29/20 15:07) Sulfa (Sulfonamide Antibiotics) Allergy (Unknown, Verified 05/29/20 15:07) aspirin Allergy (Verified 05/29/20 15:07) lamotrigine [From Lamictal] Allergy (Verified 05/29/20 15:07) rash Review of Systems ROS unobtainable: Due to mental status Physical Exam Vital Signs: Temp Pulse Resp BP Pulse Ox 98.4 F 81 16 112/66 100 01/19/21 20:15 07/21/20 20:15 07/21/20 20:15 07/21/20 20:15 07/21/20 20:15 Intake & Output 07/20/20 07/21/20 07/22/20 06:59 06:59 06:59 Intake Total 300 Balance 300 Weight 133.3 kg General appearance: PRESENT: morbidly obese Head exam: PRESENT: normocephalic Eye exam: PRESENT: EOMI Ear exam: PRESENT: normal external ear exam Mouth exam: PRESENT: dry mucosa, moist Teeth exam: PRESENT: poor dentation Neck exam: PRESENT: full ROM Respiratory exam: PRESENT: clear to auscultation christine Cardiovascular exam: PRESENT: RRR Pulses: PRESENT: other - both feet markedly swollen, cannot palpate pulse GI/Abdominal exam: PRESENT: other - morbidly obese Rectal exam: PRESENT: deferred Extremities exam: PRESENT: other - left foot markedly swollen, lateral aspect of 5th metatarsal with 2cm round deep ulcer debrided at bedside, bone palpated. Musculoskeletal exam: PRESENT: other - reported as ambulatory Neurological exam: PRESENT: other - pt sleeping, no responsive after multiple attmpts Psychiatric exam: PRESENT: unusual affect Skin exam: PRESENT: dry Results Laboratory Results: 07/21/20 16:36 07/21/20 16:36 07/21/20 07/21/20 07/21/20 16:36 16:36 16:36 WBC 7.0 RBC 4.04 Hgb 9.1 L Hct 28.5 L MCV 71 L MCH 22.5 L MCHC 31.9 L RDW 23.9 H Plt Count 320 Seg Neutrophils % 55.8 Sodium 140.5 Potassium 4.0 Chloride 105 Carbon Dioxide 24 Anion Gap 12 BUN 21 H Creatinine 0.95 Est GFR ( Amer) > 60 Glucose 74 L Lactic Acid 0.9 Calcium 9.5 Total Bilirubin 0.3 AST 27 Alkaline Phosphatase 213 H C-Reactive Protein Total Protein 7.5 Albumin 3.6 07/21/20 16:36 WBC RBC Hgb Hct MCV MCH MCHC RDW Plt Count Seg Neutrophils % Sodium Potassium Chloride Carbon Dioxide Anion Gap BUN Creatinine Est GFR ( Amer) Glucose Lactic Acid Calcium Total Bilirubin AST Alkaline Phosphatase C-Reactive Protein 28.0 H Total Protein Albumin Impressions: Foot X-Ray 07/21/20 17:16 IMPRESSION: There is no evidence of soft tissue infection with an air forming organism. The only air seen is in the ulcer itself. Assessment & Plan - Plan Summary Plan Summary: impression, morbidly obese female diabetic with extensive medical hx presents iwth non healing left 5th metatarsal ulcer\ treated in wound clinic, no healing has not been on abx wound debridement at bedside\ done with palpable bone noted at base of wound 'some bone was debrided pt will be admitted for iv abx may need to consider ray amputation vs extensive wound debridement when medically stable\ will cont with wet to dry dressings for now.
[2020-07-21] MEDS: ATORVASTATIN CALCIUM 40 MG TABLET PO SCH (23:53)
[2020-07-21] MEDS: FAMOTIDINE 20 MG TABLET PO SCH (23:53)
[2020-07-22] MEDS ORDERED: LEVOTHYROXINE SODIUM 0.05 MG TABLET PO SCH (06:00)
[2020-07-22 07:19] LABS: ABSOLUTE EOSINOPHILS # (AUTO) 0.2 10^3/uL (0.0-0.6); ABSOLUTE LYMPHOCYTES (AUTO) 1.8 10^3/uL (0.5-4.7); ABSOLUTE MONOCYTES (AUTO) 0.8 10^3/uL (0.1-1.4); ABSOLUTE NEUT (AUTO) 3.8 10^3/uL (1.7-8.2); BASOPHILS % (AUTO) 0.6 % (0-2); EOSINOPHILS % (AUTO) 3.1 % (0-6); HEMATOCRIT 22.7 % (36.0-47.0); LYMPHOCYTES % (AUTO) 27.7 % (13-45); MEAN CORPUSCULAR HEMOGLOBIN 22.3 pg (27.0-33.4); MEAN CORPUSCULAR HGB CONC 31.5 g/dL (32.0-36.0); MEAN CORPUSCULAR VOLUME 71 fl (80-97); MONOCYTES % (AUTO) 12.4 % (3-13); PLATELET COUNT 344 10^3/uL (150-450); RED BLOOD COUNT 3.21 10^6/uL (3.72-5.28); RED CELL DISTRIBUTION WIDTH 23.4 % (11.5-14.0); SEGMENTED NEUTROPHILS % (AUTO) 56.2 % (42-78); TOTAL CELLS COUNTED % (AUTO) 100 %; WHITE BLOOD COUNT 6.7 10^3/uL (4.0-10.5)
[2020-07-22 07:43] LABS: BLOOD UREA NITROGEN 18 mg/dL (7-20); CALCIUM 9.3 mg/dL (8.4-10.2); POTASSIUM 4.1 mmol/L (3.6-5.0)
[2020-07-22 07:48] LABS: ANION GAP 9 (5-19); CARBON DIOXIDE 28 mmol/L (22-30); CHLORIDE 105 mmol/L (98-107)
[2020-07-22 07:50] LABS: HEMOGLOBIN 7.2 g/dL (12.0-15.5)
[2020-07-22 07:58] LABS: GLUCOSE 67 mg/dL (75-110)
[2020-07-22 08:07] LABS: THYROID STIMULATING HORMONE < 0.01 uIU/mL (0.47-4.68)
[2020-07-22] MEDS: INSULIN LISPRO 100 UNIT/ML 3 ML VIAL SUBCUT SCH ×3 (08:25→17:01)
[2020-07-22] MEDS ORDERED: (PENDING PHARMACY ID) (Budesonide/Formoterol Fumarate 60 PUFF/6 GM Inhaler) IH SCH (10:00)
[2020-07-22] MEDS: BUSPIRONE HCL 10 MG TABLET PO SCH ×2 (10:45→17:58)
[2020-07-22] MEDS: FAMOTIDINE 20 MG TABLET PO SCH ×2 (10:45→21:44)
[2020-07-22] MEDS: POLYETHYLENE GLYCOL 3350 POWDER 17 GM/1 PACKET PO SCH (10:45)
[2020-07-22] MEDS: DULOXETINE HCL 30 MG CAPSULE.DR PO SCH ×2 (10:45→17:58)
[2020-07-22] MEDS: LOSARTAN POTASSIUM 25 MG TABLET PO SCH (10:45)
[2020-07-22] MEDS: NITROGLYCERIN 5 MG (0.2 MG/HR) PATCH.TD24 TD SCH (10:45)
[2020-07-22] MEDS: FUROSEMIDE 40 MG TABLET PO SCH (10:48)
[2020-07-22 12:57] LABS: ABSOLUTE RETICS # 0.042 10^6/uL (0.028-0.122); RETICULOCYTE COUNT (AUTO) 1.34 % (0.66-2.85)
--- NOTE | 2020-07-22 13:40 | Progress Note ---
Provider Note Provider Note: ID Note- I was asked to review this patient's chart for recommendations regarding left, 5th metatarsal osteomyelitis. Patient has a history of chronic ulcer overlying the left, 5th metatarsal. From my review of the x-ray of the left foot, there appears to be a partial resection of the left 5th metatarsal. CRP is not very elevated now, but the description of the exposed bone makes osteomyelitis very likely. The patient had a culture of the wound done as an outpatient in May,. The culture grew MRSA, sensitive to vancomycin, TMP-SMX, doxycycline, and rifampin. The MRSA was resistant to clindamycin. The patient has a history of diabetes and morbid obesity. She also has a history of multiple allergies, including penicillins and sulfa. It is not clear to me from my review of the chart what the allergic reactions are. The patient is on many medications and is taking duloxetine. Recommendations: If there are plans for surgical debridement or resection, recommend holding antibiotics until cultures of the tissue can be obtained. If there are no plans for debridement, would consider treatment to cover the MRSA from the culture done in May,. Because of the history of multiple allergies, there are some limitations to treatment. One option is to place a PICC line and to treat with combination of IV vancomycin and oral rifampin 600 mg daily x 6 weeks. Oral linezolid is a problem given the interaction of this drug with duloxetine; this can lead to serotonin syndrome, which can be life-threatening. Oral doxycycline 100 mg BID x 6 weeks is another option to consider. Would check weekly CRP, CBC with diff, and chemistry panel if the decision is made to start antibiotics. Please contact me if there are questions. Daniel Palma MD Pager: [phone]
[2020-07-22 13:45] LABS: FOLATE 8.38 ng/mL (>2.76)
[2020-07-22] MEDS ORDERED: OXYCODONE-ACETAMINOPHEN 5-325 MG TABLET PO ONE (15:14)
--- NOTE | 2020-07-22 17:25 | PDOC CONSULTATION ---
Consultation Consult Date: 07/22/20 Provider Consulted: SANCHEZ RDZ Consult reason:: Hematology/Oncology consultation was requested for patient with anemia of chronic disease on Erythropoetin. History of Present Illness Admission Date/PCP: 07/22/20 14:18 TONI BHATTI MD History of Present Illness: SANTOS NAVARRO is a 60 year old female who is well known to me and has been receiving EPO injections every 2 weeks for quite some time. She does NOT receive blood transfusions due to tenriism reasons and has received IM B12 and IV iron in the past. Most recently, she received EPO 40,000 units on 07/17/2020 and her next dose will be due 07/31/2020. Her baseline HGB is 7-8 and her most recent Fe rritin and B12 have shown no indication for IV iron or OM B12. Today, she states that she has had a hole in her foot fpr about 5 months. She was also told that her toe needs to be amputated. They wanted to take her whole foot, but have decided to treat the area with antibiotics and wound clinic visits in an attempt to save her foot. Today, she denies severe fatigue, dyspnea, chest pains, or evidence of acute anemia. She complains of pain and states that she takes percocet 7.5 mg at home, but here they only have oxycodone 5 mg and she does not like this. It causes her to itch and she needs benadryl with this. Past Medical History Cardiac Medical History: Reports: Congestive Heart Failure, Coronary Artery Disease, Myocardial Infarction, Hyperlipidema, Hypertension, Peripheral Vascular Disease Denies: Heart Murmur Pulmonary Medical History: Reports: Asthma, Chronic Obstructive Pulmonary Disease (COPD), Sleep Apnea Denies: Bronchitis, Pneumonia, Respiratory Failure, Tuberculosis Neurological Medical History: Reports: Migraine Denies: Seizures Endocrine Medical History: Reports: Diabetes Mellitus Type 2, Hyperthyroidism, Hypothyroidism Renal/ Medical History: Denies: End Stage Renal Disease Malignancy Medical History: GI Medical History: Reports: Gastroesophageal Reflux Disease Denies: Cirrhosis Musculoskeltal Medical History: Reports: Arthritis, Fibromyalgia Psychiatric Medical History: Reports: Depression, Post Traumatic Stress Disorder Denies: Bipolar Disorder Hematology: Reports: Anemia, Bleeding Tendencies Denies: Hemophilia, Sickle Cell Disease Infectious Medical History: Past Surgical History Past Surgical History: Reports: Cardiac Catheterization, Section - x2, Coronary Artery Bypass Graft, Coronary Stent - x2, Hysterectomy, Orthopedic Surgery, Tubal Ligation, Other - multiple colonoscopies for lower GI bleed Denies: Amputation Social History Lives with: Alone Smoking Status: Never Smoker Electronic Cigarette use?: No Frequency of Alcohol Use: None Hx Recreational Drug Use: No Drugs: None Hx Prescription Drug Abuse: No - Advance Directive Resuscitation Status: Full Code Family History Family History: Hypertension Parental Family History Reviewed: Yes Children Family History Reviewed: Yes Sibling(s) Family History Reviewed.: No Medication/Allergy Home Medications: Albuterol Sulfate [Proair HFA Inhalation Aerosol 8.5 gm MDI] 2 puff IH Q6HP PRN 12/07/18 Atorvastatin Calcium [Lipitor 40 mg Tablet] 40 mg PO QHS 12/07/18 Benztropine Mesylate [Cogentin 1 mg Tablet] 1 mg PO Q12 12/07/18 Budesonide/Formoterol Fumarate [Symbicort HFA 160-4.5 mcg Inhaler 6 gm] 2 puff IH Q12 12/07/18 Duloxetine HCl [Cymbalta] 30 mg PO Q12 12/07/18 Gabapentin [Neurontin 300 mg Capsule] 600 mg PO Q8 12/07/18 Levothyroxine Sodium 50 mcg PO Q6AM 12/07/18 Nitroglycerin [Nitro-Dur 5 mg (0.2 mg/Hr) Transdermal Patch] 1 patch TD DAILY 12/07/18 Omeprazole 40 mg PO Q12 12/07/18 Naloxegol Oxalate [Movantik 25 mg Tablet] 25 mg PO QAM 06/20/19 Cyanocobalamin (Vitamin B-12) [Vitamin B-12 Inj 1000 Mcg/1 ml Vial] 1 ml IM .MONTHLY 03/31/20 Lurasidone HCl [Latuda 40 mg Tablet] 80 mg PO QAM 03/31/20 Sitagliptin Phosphate [Januvia 50 mg Tablet] 50 mg PO QAM 03/31/20 Trazodone HCl 100 mg PO QHS 03/31/20 Furosemide [Lasix 40 mg Tablet] 40 mg PO DAILY #30 tablet 04/07/20 Albuterol Sulfate [Ventolin 0.083% Neb 2.5 mg/3 mL Ampul] 3 ml NEB RTTID 07/03 03/23 Insulin Glargine,Hum.rec.anlog [Lantus Insulin 100 Unit/1 ml 10 ml] 55 unit SUBCUT QAM 07/21/20 Insulin Glargine,Hum.rec.anlog [Lantus Insulin 100 Unit/1 ml 10 ml] 65 units SQ QHS 07/21/20 Insulin Lispro [Humalog Insulin (Lispro) 100 unit/mL] 0 units SQ .PERSLIDINGSCALE 07/21/20 Irbesartan 150 mg PO QPM 07/21/20 Ondansetron [Zofran Odt 4 mg Tablet] 4 mg PO Q4HP PRN 07/21/20 Oxycodone HCl/Acetaminophen [Percocet 7.5-325 mg Tablet] 1 tab PO QIDP PRN 07/21/20 Polyethylene Glycol 3350 [Miralax Powder 17 gm/Packet] 17 gm PO DAILY 07/21/20 Zolpidem Tartrate [Ambien] 10 mg PO HSP PRN 07/21/20 Allergies/Adverse Reactions: cephalexin monohydrate [From Keflex] Allergy (Unknown, Verified 05/29/20 15:07) codeine [Codeine] Allergy (Unknown, Verified 05/29/20 15:07) dicyclomine HCl [From Bentyl] Allergy (Unknown, Verified 05/29/20 15:07) hydrocodone bitartrate [From Vicodin] Allergy (Unknown, Verified 05/29/20 15:07) meloxicam [From Mobic] Allergy (Unknown, Verified 05/29/20 15:07) meperidine HCl [From Demerol (PF)] Allergy (Unknown, Verified 05/29/20 15:07) morphine [Morphine] Allergy (Unknown, Verified 05/29/20 15:07) naproxen sodium [From Naprelan CR Dosepak] Allergy (Unknown, Verified 05/29/20 15:07) nitrofurantoin [From Macrobid] Allergy (Unknown, Verified 05/29/20 15:07) pantoprazole sodium [From Protonix] Allergy (Unknown, Verified 05/29/20 15:07) Penicillins Allergy (Unknown, Verified 05/29/20 15:07) Sulfa (Sulfonamide Antibiotics) Allergy (Unknown, Verified 05/29/20 15:07) aspirin Allergy (Verified 05/29/20 15:07) lamotrigine [From Lamictal] Allergy (Verified 05/29/20 15:07) rash Review of Systems Constitutional: ABSENT: fever(s), headache(s) Eyes: ABSENT: visual disturbances Ears: ABSENT: hearing changes Nose, Mouth, and Throat: ABSENT: sore throat Cardiovascular: ABSENT: chest pain Respiratory: ABSENT: dyspnea Gastrointestinal: ABSENT: abdominal pain Genitourinary: ABSENT: dysuria Musculoskeletal: PRESENT: as per HPI Integumentary: PRESENT: as per HPI Neurological: ABSENT: confusion, weakness Hematologic/Lymphatic: ABSENT: easy bleeding Physical Exam Vital Signs: Temp Pulse Resp BP Pulse Ox 98.2 F 87 18 99/76 L 100 07/22/20 15:34 07/22/20 15:34 07/22/20 15:34 07/22/20 15:34 07/22/20 15:34 Intake & Output 07/21/20 07/22/20 07/23/20 06:59 06:59 06:59 Intake Total 660 118 Output Total 500 Balance 160 118 Weight 135.2 kg General appearance: PRESENT: no acute distress, morbidly obese, well-developed Head exam: PRESENT: normocephalic Eye exam: PRESENT: EOMI Mouth exam: PRESENT: moist Neck exam: ABSENT: tenderness Respiratory exam: PRESENT: clear to auscultation christine, unlabored Cardiovascular exam: PRESENT: RRR GI/Abdominal exam: PRESENT: soft. ABSENT: tenderness Extremities exam: PRESENT: pedal edema, other - venous stasis changes bilateral ankles, left foot in walking boot. Neurological exam: PRESENT: alert, awake, oriented to person, oriented to place Psychiatric exam: PRESENT: appropriate affect Skin exam: PRESENT: normal color, other - venous stasis change as above. Results Laboratory Results: 07/22/20 06:32 07/22/20 06:32 07/21/20 07/21/20 07/21/20 16:36 16:36 16:36 WBC 7.0 RBC 4.04 Hgb 9.1 L Hct 28.5 L MCV 71 L MCH 22.5 L MCHC 31.9 L RDW 23.9 H Plt Count 320 Seg Neutrophils % 55.8 Retic Count (auto) Sodium 140.5 Potassium 4.0 Chloride 105 Carbon Dioxide 24 Anion Gap 12 BUN 21 H Creatinine 0.95 Est GFR ( Amer) > 60 Glucose 74 L Lactic Acid 0.9 Calcium 9.5 Magnesium Iron TIBC % Saturation Ferritin Total Bilirubin 0.3 AST 27 Alkaline Phosphatase 213 H C-Reactive Protein Total Protein 7.5 Albumin 3.6 Vitamin B12 Folate TSH Free T4 07/21/20 07/22/20 07/22/20 16:36 06:32 06:32 WBC 6.7 RBC 3.21 L Hgb 7.2 L Hct 22.7 L MCV 71 L MCH 22.3 L MCHC 31.5 L RDW 23.4 H Plt Count 344 Seg Neutrophils % 56.2 Retic Count (auto) Sodium 141.9 Potassium 4.1 Chloride 105 Carbon Dioxide 28 Anion Gap 9 BUN 18 Creatinine 0.86 Est GFR ( Amer) > 60 Glucose 67 L Lactic Acid Calcium 9.3 Magnesium 1.7 Iron TIBC % Saturation Ferritin Total Bilirubin AST Alkaline Phosphatase C-Reactive Protein 28.0 H Total Protein Albumin Vitamin B12 Folate TSH Free T4 07/22/20 07/22/20 07/22/20 06:32 06:32 06:32 WBC RBC Hgb Hct MCV MCH MCHC RDW Plt Count Seg Neutrophils % Retic Count (auto) 1.34 Sodium Potassium Chloride Carbon Dioxide Anion Gap BUN Creatinine Est GFR ( Amer) Glucose Lactic Acid Calcium Magnesium Iron TIBC % Saturation Ferritin Total Bilirubin AST Alkaline Phosphatase C-Reactive Protein Total Protein Albumin Vitamin B12 616.0 Folate TSH < 0.01 L Free T4 2.70 H 07/22/20 06:32 WBC RBC Hgb Hct MCV MCH MCHC RDW Plt Count Seg Neutrophils % Retic Count (auto) Sodium Potassium Chloride Carbon Dioxide Anion Gap BUN Creatinine Est GFR ( Amer) Glucose Lactic Acid Calcium Magnesium Iron 25.0 L TIBC 255 % Saturation 10 Ferritin 211.00 Total Bilirubin AST Alkaline Phosphatase C-Reactive Protein Total Protein Albumin Vitamin B12 Cancelled Folate 8.38 TSH Free T4 Impressions: Foot X-Ray 07/21/20 17:16 IMPRESSION: There is no evidence of soft tissue infection with an air forming organism. The only air seen is in the ulcer itself. Status: Image reviewed by me Assessment & Plan - Diagnosis (1) Anemia Qualifiers: Anemia type: due to chronic kidney disease Chronic kidney disease stage 3 subtype: stage 3a (GFR 45-59) Is this a current diagnosis for this admission?: Yes Plan: Due to tenriism reasons, she will NOT accept any blood products. She has anemia of chronic disease/inflammation due to the chronic infections. This should improve once her osteomyelitis has cleared. Her ferritin is normal. She requests a B12 injection. I will arrange. She will be due for EPO 40,000 units again on 07/31/2020 and this will be given in my office unless she is still admitted. I will be happy to follow her with you, but her blood counts are currently stable.
--- NOTE | 2020-07-22 18:18 | PDOC CONSULTATION ---
Consultation-Blank Consultation: Behavioral Health Consult: Medication Review since patient is on numerous psychiatric medications Chart review at 1551 and ongoing. [facility] collateral at 1613. Evaluation with patient [id number]. Patient is a 60 year old female who presented to the emergency department on 07/21/2020 at 1542 via EMS from wound care doctor Dejan for osteomyelitis (diabetic ulcer on left foot). She was admitted to hospitalist services same day at 2119 for diabetic foot ulcer associated with type 2 diabetes mellitus, depression, diabetes mellitus 2, hypertension, anemia, hypothyroidism, chronic obstructive pulmonary disease without exacerbation, coronary artery disease, congestive heart failure, and Gastroesophageal reflux disease. Chart review revealed patient sees Caitlin Munoz at [facility] ([facility]) for medication management. He medications included: Latuda 80MG in the morning, Cogentin 1MG every 12 hours, Cymbalta 30MG every 12 hours, and Ambien 10MG at night for sleep. It appears as though she has been tried on several different sleep medications as previous medications included: Temazepam 30MG at night (last filled 06/03/2020), Trazodone 100MG at night (last filled 03/10/2020), and Seroquel 100MG at night (last filled 03/10/2020). Other psychiatric medications patient had previously been prescribed included: Wellburtin ER 150MG in the morning (last filled 03/10/2020) and Topomax 25MG twice a day (last filled 03/10/2020). Psychiatric medication being administered while in the hospital include: Buspar 10MG twice a day and Cymbalta 60MG twice a day. Patient had reported a history of Depression and Post Traumatic Stress Disorder, however other medical documentation reported a history of Schizoaffective and Bipolar Disorders. Head CT dated 01/17/2020 had no significant neurodegenerative language but mentioned peña-white matter differentiation and ventricles/extracerebral spaces within normal limits for age. She was seen at [facility] on 08/28/2012 after being sent from her outpatient provider [facility] for auditory hallucinations (heard voices telling her to stick a knife through her throat but she did not act and told her provider), suicidal ideation, and had urinary tract infection. At 1613 spoke to Gale from [facility]. She reported diagnoses of Schizoaffective, Bipolar, and Post Traumatic Stress Disorders. She identified these are entered multiple times as diagnoses. She further stated it appears patient is still going/active to/with [facility] for outpatient services as there were claims from earlier this month related to office visits. Patient was sitting up in bed with legs over to the side. She confirmed she sees Caitlin Munoz at [facility] monthly, had already been this month, and noted next appointment 08/03/2020 (consistent with [facility] saying they had claims from earlier this month indicating she saw her provider already this month). She denied suicidal and homicidal ideation. She commented "I am just trying to get well to go home, I've got this big hold in my foot, and they are amputating my small toe (she was pointing to her left foot)." She commented on needing her Gabapentin this evening for her neuropathy and pain in legs. She was informed medication adjustments are taking place while she is in the hospital and that should be one to get restarted but at lower dose (600MG twice a day). She said she understood and was okay with that. Patient was alert and oriented to self, person, place, time and situation. Mood was euthymic with congruent affect. She denied current suicidal and homicidal ideation. Patient did not appear to be responding to internal stimuli as evidenced by fair eye contact and answering questions appropriately when addressed. Thought processes were linear and organized. Conversational speech was within normal limits for rate, tone and prosody. Intellectual abilities are estimated to be average. Insight, judgment and impulse control were fair as evidenced by liner and organized thoughts and being aware of her medical needs/reason for being in the hospital. Attending Nurse noted patient has been pleasant and cooperative. Attending Hospitalist noted patient seems stable today, was drowsy yesterday, and just concern for the amount of medications patient is prescribed. Clinical Presentation: Concerns for amount of all medication to include psychiatric ones History of Schizoaffective, Bipolar, and Post Traumatic Stress Disorders Medication recommendations made by the psychiatric medical provider Dr. Anabell ROLLINS., includes: Decrease Buspar to 5MG twice a day for anxiety/calming effect/depression/sleep Decrease Cymbalta to 30MG twice a day for depression/pain Add Gabapentin 600MG twice a day for pain/also serves a mood stabilizer just not as effective as some others Discontinue Latuda 80MG in the morning for mood stabilization (home medication) Discontinue Ambien 10MG for sleep as needed (home medication) Discontinue Cogentin 1MG every 12 hours (home medication) Impression/Plan: Patient is cleared from acute psychiatric services. Consult was ordered to review current medications. Patient denied suicidal and homicidal ideation. She did not appear to be responding to internal stimuli as evidenced by fair eye contact, answering questions appropriately when addressed, and awareness into medical needs and why she is in the hospital. She has an outpatient behavioral health provider at [facility] that she sees monthly with next appointment around 08/03/2020. Consulted with Dr. Britton regarding the management and care of patient. Attending Hospitalist made aware of recommendations via telephone.
[2020-07-22] MEDS ORDERED: OXYCODONE-ACETAMINOPHEN 5-325 MG TABLET PO PRN (19:03)
--- NOTE | 2020-07-22 19:06 | PDOC PROGRESS REPORT ---
Subjective Date:: 07/22/20 Subjective:: Day2: Patient seen on morning rounds. She is resting upright at the side of her bed. She is significantly more cooperative with history and evaluation today. We were able to discuss and review all of her current medications. She was evaluated by physical therapy and was able to ambulate without difficulty though notably had pain with ambulation. Requests medication to aide in pain. Her hgb was noted to be 7.2, previous labs reviewed consistent with her baseline. She is not interested in receiving transfusions at this time, which she relates to adventism reasons. Consulted oncology who is now onboard. Surgery and wound care are following as well. I have consulted ID for medication recommendations. She denies fever, chills, fatigue, SOB, CP, palpitations, syncope, or generalized weakness. Discussed with nursing without concerns at this time. Reason For Visit: OSTEOMYELITIS LEFT FOOT Physical Exam Vital Signs: Temp Pulse Resp BP Pulse Ox 98.2 F 91 18 134/63 H 100 07/22/20 07:15 07/22/20 07:15 07/22/20 07:15 07/22/20 07:15 07/22/20 07:15 Intake & Output 07/21/20 07/22/20 07/23/20 06:59 06:59 06:59 Intake Total 660 118 Output Total 500 Balance 160 118 Weight 135.2 kg Additional comments: General appearance: PRESENT: no acute distress, obese Head exam: PRESENT: atraumatic, normocephalic Eye exam: PRESENT: EOMI, PERRLA. Respiratory exam: PRESENT: clear to auscultation christine, symmetrical, unlabored. ABSENT: tachypnea, wheezes Cardiovascular exam: PRESENT: RRR Extremities exam: PRESENT: full ROM. Pedal edema. Musculoskeletal exam: PRESENT: full ROM Neurological exam: PRESENT: alert, awake, oriented to person, oriented to place, oriented to time, oriented to situation, CN II-XII grossly intact. ABSENT: motor sensory deficit Psychiatric exam: PRESENT: normal mood Skin exam: PRESENT: dry, intact, warm, other - venous stasis changes bilateral lower extremities, left foot is in a walking boot. Results Laboratory Results: 07/22/20 06:32 07/22/20 06:32 07/21/20 07/21/20 07/21/20 16:36 16:36 16:36 WBC 7.0 RBC 4.04 Hgb 9.1 L Hct 28.5 L MCV 71 L MCH 22.5 L MCHC 31.9 L RDW 23.9 H Plt Count 320 Seg Neutrophils % 55.8 Sodium 140.5 Potassium 4.0 Chloride 105 Carbon Dioxide 24 Anion Gap 12 BUN 21 H Creatinine 0.95 Est GFR ( Amer) > 60 Glucose 74 L Lactic Acid 0.9 Calcium 9.5 Magnesium Total Bilirubin 0.3 AST 27 Alkaline Phosphatase 213 H C-Reactive Protein Total Protein 7.5 Albumin 3.6 TSH Free T4 07/21/20 07/22/20 07/22/20 16:36 06:32 06:32 WBC 6.7 RBC 3.21 L Hgb 7.2 L Hct 22.7 L MCV 71 L MCH 22.3 L MCHC 31.5 L RDW 23.4 H Plt Count 344 Seg Neutrophils % 56.2 Sodium 141.9 Potassium 4.1 Chloride 105 Carbon Dioxide 28 Anion Gap 9 BUN 18 Creatinine 0.86 Est GFR ( Amer) > 60 Glucose 67 L Lactic Acid Calcium 9.3 Magnesium 1.7 Total Bilirubin AST Alkaline Phosphatase C-Reactive Protein 28.0 H Total Protein Albumin TSH Free T4 07/22/20 06:32 WBC RBC Hgb Hct MCV MCH MCHC RDW Plt Count Seg Neutrophils % Sodium Potassium Chloride Carbon Dioxide Anion Gap BUN Creatinine Est GFR ( Amer) Glucose Lactic Acid Calcium Magnesium Total Bilirubin AST Alkaline Phosphatase C-Reactive Protein Total Protein Albumin TSH < 0.01 L Free T4 2.70 H Impressions: Foot X-Ray 07/21/20 17:16 IMPRESSION: There is no evidence of soft tissue infection with an air forming organism. The only air seen is in the ulcer itself. Assessment and Plan - Diagnosis (1) Diabetic foot ulcer associated with type 2 diabetes mellitus Qualifiers: Diabetic foot ulcer location: midfoot Laterality: left Non-pressure ulcer stage: with necrosis of bone Qualified Code(s): E11.621 - Type 2 diabetes mellitus with foot ulcer; L97.424 - Non-pressure chronic ulcer of left heel and midfoot with necrosis of bone Is this a current diagnosis for this admission?: Yes Plan: Infectious disease consulted, note reviewed in detail, recommendations as follows: - Minimally elevated CRP - Bone exposure on imaging makes osteomylitis likely - Wound cx 05/2020 MRSA sensitive to vanc, MTP-SMX, doxy and rifampin - Abx recommendations: - PICC line placement for IV vanc + Rifampin 600mg daily x6 weeks - Oral doxycycline 100mg BID x6 weeks - Weekly CRP, CBC with diff and chemistries if on abx Initiate Doxycycline 100mg p.o. BID x6 weeks (Start date 07/22/2020, EOT 09/02/2020) Wound care consulted, note reviewed in detail: - Wound dressings: Pack with acticoat and cover with dry dressing change q3 days Surgery consulted, appreciate recommendations. - Consider ray amputation vs extensive wound debridement when medically stable (2) Depression Is this a current diagnosis for this admission?: Yes Plan: Patient wit history of schizoaffective disorder, anxiety and depression. Psych consulted for medication review and management, note reviewed in detail, r ecommendations as below: - Decrease Buspar to 5MG twice a day for anxiety/calming effect/depressio n/sleep - Decrease Cymbalta to 30MG twice a day for depression/pain - Add Gabapentin 600MG twice a day for pain/also serves a mood stabilizer just not as effective as some others - Discontinue Latuda 80MG in the morning for mood stabilization (home medication) - Discontinue Ambien 10MG for sleep as needed (home medication) (3) Diabetes mellitus Qualifiers: Diabetes mellitus type: type 2 Diabetes mellitus exterminator helper insulin use: unspecified exterminator helper insulin use status Diabetes mellitus complication status: with other specified complication Qualified Code(s): E11.69 - Type 2 diabetes mellitus with other specified complication Is this a current diagnosis for this admission?: Yes Plan: Blood sugars appropriate range with SSI. Heme A1c 6.7. Patient is placed on a consistent carb diet. Accu-Cheks before meals and at bedtime with Humalog for sliding scale coverage. Hypoglycemia protocol in place. Registered dietitian quilting supervisor consulted. (4) HTN (hypertension) Qualifiers: Hypertension type: essential hypertension Qualified Code(s): I10 - Essential (primary) hypertension Is this a current diagnosis for this admission?: Yes Plan: Cnt current medications, cnt to monitor BP. (5) Anemia Qualifiers: Anemia type: due to chronic kidney disease Chronic kidney disease stage 3 subtype: stage 3a (GFR 45-59) Is this a current diagnosis for this admission?: Yes Plan: History of anemia of chronic disease/inflammation due to chronic infections Oncology consulted, note reviewed in detail recommendations as follows: - Baseline Hgb 7-8. - receiving EPO injections every 2 weeks, most recent 07/17, next scheduled 07/31. - Denies blood transfusion for adventism reasons - Ferritin and B12 have shown no indication for IV iron or OM B12. - Suspect will improve once osteomylitis has resolved - B12 injection given today (6) Hypothyroidism Is this a current diagnosis for this admission?: Yes Plan: TSH <0.01, FT4 2.70 Discontinue levothyroxine. (7) COPD without exacerbation Is this a current diagnosis for this admission?: Yes Plan: Hx COPD utilizes albuterol and Symbicort. Not in acute exacerbation at this time. Continue home medications. (8) CAD (coronary artery disease) Qualifiers: Coronary Disease-Associated Artery/Lesion type: [place] artery [place] vs. transplanted heart: [place] heart Associated angina: without angina Qualified Code(s): I25.10 - Atherosclerotic heart disease of [place] coronary artery without angina pectoris Is this a current diagnosis for this admission?: Yes Plan: With history of coronary artery disease. Previous notes reviewed with history of stent x2. Statin and aspirin daily. (9) CHF (congestive heart failure) Is this a current diagnosis for this admission?: Yes Plan: Patient with history congestive heart failure. Not in acute exacerbation at this time. Cnt lasix 40mg p.o. daily. Limit intake, monitor I&Os, low sodium diet. (10) GERD (gastroesophageal reflux disease) Is this a current diagnosis for this admission?: Yes Plan: History reflux. Initiate PPI management. (11) Obstructive sleep apnea Is this a current diagnosis for this admission?: Yes Plan: CPAP nightly. - Time Time Spent with patient: 35 or more minutes Medications reviewed and adjusted accordingly: Yes Anticipated Discharge Disposition: Home with Home Health Anticipated Discharge Timeframe: tbd
[2020-07-22] MEDS ORDERED: CYANOCOBALAMIN (VITAMIN B-12) INJ 1000 MCG/1 ML VIAL IM ONE (19:30)
[2020-07-22] MEDS: ATORVASTATIN CALCIUM 40 MG TABLET PO SCH (21:44)
[2020-07-22] MEDS: GABAPENTIN 300 MG CAPSULE PO SCH (21:44)
[2020-07-22] MEDS: DOXYCYCLINE HYCLATE 100 MG TABLET PO SCH (21:49)
[2020-07-23 07:29] LABS: HEMATOCRIT 27.1 % (36.0-47.0); HEMOGLOBIN 8.7 g/dL (12.0-15.5); MEAN CORPUSCULAR HEMOGLOBIN 22.4 pg (27.0-33.4); MEAN CORPUSCULAR HGB CONC 32.1 g/dL (32.0-36.0); MEAN CORPUSCULAR VOLUME 70 fl (80-97); PLATELET COUNT 330 10^3/uL (150-450); RED BLOOD COUNT 3.88 10^6/uL (3.72-5.28); RED CELL DISTRIBUTION WIDTH 23.9 % (11.5-14.0); WHITE BLOOD COUNT 5.2 10^3/uL (4.0-10.5)
[2020-07-23] MEDS: INSULIN LISPRO 100 UNIT/ML 3 ML VIAL SUBCUT SCH ×3 (07:41→16:43)
[2020-07-23 07:52] LABS: ANION GAP 7 (5-19); BLOOD UREA NITROGEN 13 mg/dL (7-20); CALCIUM 9.4 mg/dL (8.4-10.2); CARBON DIOXIDE 28 mmol/L (22-30); CHLORIDE 105 mmol/L (98-107); GLUCOSE 73 mg/dL (75-110); POTASSIUM 4.2 mmol/L (3.6-5.0)
--- NOTE | 2020-07-23 08:01 | PDOC PROGRESS REPORT ---
Subjective Date:: 07/22/20 Subjective:: 60-year-old female, diabetic, with a chronic left foot ulcer to the plantar surf tasha. She has had previous resection of the metatarsal bone by Dr. Wylie. She continues to report pain in the foot. She denies any purulent drainage, increasing erythema, fevers, chills, nausea, vomiting, abdominal pain, dizziness, orthostasis, headache, blurry vision. Reason For Visit: OSTEOMYELITIS LEFT FOOT Physical Exam Vital Signs: Temp Pulse Resp BP Pulse Ox 98.2 F 91 18 134/63 H 100 07/22/20 07:15 07/22/20 07:15 07/22/20 07:15 07/22/20 07:15 07/22/20 07:15 Intake & Output 07/21/20 07/22/20 07/23/20 06:59 06:59 06:59 Intake Total 660 Output Total 500 Balance 160 Weight 135.2 kg General appearance: PRESENT: no acute distress, obese Head exam: PRESENT: atraumatic, normocephalic Eye exam: PRESENT: EOMI, PERRLA. ABSENT: scleral icterus Mouth exam: PRESENT: moist, neck supple Neck exam: ABSENT: meningismus, tenderness, thyromegaly, tracheal deviation Respiratory exam: PRESENT: unlabored. ABSENT: tachypnea, wheezes Cardiovascular exam: ABSENT: tachycardia Vascular exam: PRESENT: normal capillary refill GI/Abdominal exam: PRESENT: soft. ABSENT: guarding, tenderness Rectal exam: PRESENT: deferred Extremities exam: PRESENT: other - Left foot plantar surface with a deep ulceration, extending down to the bone. No evidence of purulence, erythema, or induration.. ABSENT: clubbing Neurological exam: PRESENT: alert, awake, oriented to person, oriented to place, oriented to time Psychiatric exam: ABSENT: agitated, anxious Focused psych exam: ABSENT: delusional Skin exam: ABSENT: cyanosis, erythema, jaundice Results Laboratory Results: 07/22/20 06:32 07/22/20 06:32 07/21/20 07/21/20 07/21/20 16:36 16:36 16:36 WBC 7.0 RBC 4.04 Hgb 9.1 L Hct 28.5 L MCV 71 L MCH 22.5 L MCHC 31.9 L RDW 23.9 H Plt Count 320 Seg Neutrophils % 55.8 Sodium 140.5 Potassium 4.0 Chloride 105 Carbon Dioxide 24 Anion Gap 12 BUN 21 H Creatinine 0.95 Est GFR ( Amer) > 60 Glucose 74 L Lactic Acid 0.9 Calcium 9.5 Magnesium Total Bilirubin 0.3 AST 27 Alkaline Phosphatase 213 H C-Reactive Protein Total Protein 7.5 Albumin 3.6 TSH Free T4 07/21/20 07/22/20 07/22/20 16:36 06:32 06:32 WBC 6.7 RBC 3.21 L Hgb 7.2 L Hct 22.7 L MCV 71 L MCH 22.3 L MCHC 31.5 L RDW 23.4 H Plt Count 344 Seg Neutrophils % 56.2 Sodium 141.9 Potassium 4.1 Chloride 105 Carbon Dioxide 28 Anion Gap 9 BUN 18 Creatinine 0.86 Est GFR ( Amer) > 60 Glucose 67 L Lactic Acid Calcium 9.3 Magnesium 1.7 Total Bilirubin AST Alkaline Phosphatase C-Reactive Protein 28.0 H Total Protein Albumin TSH Free T4 07/22/20 06:32 WBC RBC Hgb Hct MCV MCH MCHC RDW Plt Count Seg Neutrophils % Sodium Potassium Chloride Carbon Dioxide Anion Gap BUN Creatinine Est GFR ( Amer) Glucose Lactic Acid Calcium Magnesium Total Bilirubin AST Alkaline Phosphatase C-Reactive Protein Total Protein Albumin TSH < 0.01 L Free T4 2.70 H Impressions: Foot X-Ray 07/21/20 17:16 IMPRESSION: There is no evidence of soft tissue infection with an air forming organism. The only air seen is in the ulcer itself. Assessment & Plan - Diagnosis (1) Diabetic foot ulcer associated with type 2 diabetes mellitus Qualifiers: Diabetic foot ulcer location: midfoot Laterality: left Non-pressure ulcer stage: with necrosis of bone Qualified Code(s): E11.621 - Type 2 diabetes mellitus with foot ulcer; L97.424 - Non-pressure chronic ulcer of left heel and midfoot with necrosis of bone - Time Anticipated Discharge Disposition: Home, Self Care Anticipated Discharge Timeframe: unknown - Plan Summary Plan Summary: 60-year-old female with a deep left foot ulcer. The patient experiences discomfort and trouble walking. The ulcer appears to be worsening, instead of improving. There is a large portion of the distal metatarsal that has been completely removed, surgically, in the past. This has left the toe free- floating, without much stability. I have provided the patient several options. She may undergo surgical removal of the toe, with partial closure, in an effort to expedite healing. At this time, there is no evidence for overwhelming infec tion, and the wound appears clean (although I believe the wound has a very small chance of successfully healing in its current location). If the patient wishes to continue with her current course of treatment with dressing changes and local wound care by Dr. Wylie, this would be an acceptable alternative. The patient would like to discuss the situation with her mother. If the patient consents, plan for fifth toe amputation tomorrow.
[2020-07-23] MEDS ORDERED: MIDAZOLAM 2 MG/2 ML INJ ONE (10:47)
[2020-07-23] MEDS ORDERED: FENTANYL CITRATE INJ/PF 100 MCG/2 ML AMPUL ONE (10:47)
[2020-07-23] MEDS ORDERED: PROPOFOL INJ 200 MG/20 ML VIAL IV ONE (10:47)
[2020-07-23] MEDS ORDERED: BUPIVACAINE HCL 0.25 % INJ/PF (2.5 MG/1 ML) 30 ML VIAL ONE (10:52)
[2020-07-23] MEDS ORDERED: ONDANSETRON HCL INJ/PF 4 MG/2 ML SDV IV PRN (11:16)
[2020-07-23] MEDS ORDERED: PROMETHAZINE HCL INJ 25 MG/1 ML VIAL IV PRN ×2 (11:16)
[2020-07-23] MEDS ORDERED: DIPHENHYDRAMINE HCL 50 MG/ML VIAL IV PRN (11:16)
[2020-07-23] MEDS ORDERED: FENTANYL CITRATE INJ/PF 100 MCG/2 ML AMPUL IV PRN ×3 (11:16)
[2020-07-23] MEDS ORDERED: DOXYCYCLINE HYCLATE 100 MG in DEXTROSE 5%-WATER 250 ML IV PRN (11:30)
--- NOTE | 2020-07-23 11:59 | PDOC PROGRESS REPORT ---
Subjective Subjective:: 60-year-old female, diabetic, with a chronic left foot ulcer to the plantar surface. She has had previous resection of the metatarsal bone by Dr. Wylie. She continues to report pain in the foot. She denies any purulent drainage, increasing erythema, fevers, chills, nausea, vomiting, abdominal pain, dizziness, orthostasis, headache, blurry vision. Reason For Visit: POSSIBLE OSTEOMYELITIS LEFT FOOT, LEFT FOOT Physical Exam Vital Signs: Temp Pulse Resp BP Pulse Ox 98.2 F 84 22 H 148/75 H 96 07/23/20 10:20 07/23/20 10:20 07/23/20 10:20 07/23/20 10:20 07/23/20 10:20 Intake & Output 07/22/20 07/23/20 07/24/20 06:59 06:59 06:59 Intake Total 660 118 250 Output Total 500 Balance 160 118 250 Weight 135.2 kg 134.5 kg Exam: General appearance: PRESENT: no acute distress, obese Head exam: PRESENT: atraumatic, normocephalic Eye exam: PRESENT: EOMI, PERRLA. ABSENT: scleral icterus Mouth exam: PRESENT: moist, neck supple Neck exam: ABSENT: meningismus, tenderness, thyromegaly, tracheal deviation Respiratory exam: PRESENT: unlabored. ABSENT: tachypnea, wheezes Cardiovascular exam: ABSENT: tachycardia Vascular exam: PRESENT: normal capillary refill GI/Abdominal exam: PRESENT: soft. ABSENT: guarding, tenderness Rectal exam: PRESENT: deferred Extremities exam: PRESENT: other - Left foot plantar surface with a deep ulceration, extending down to the bone. No evidence of purulence, erythema, or induration.. ABSENT: clubbing Neurological exam: PRESENT: alert, awake, oriented to person, oriented to place, oriented to time Psychiatric exam: ABSENT: agitated, anxious Focused psych exam: ABSENT: delusional Skin exam: ABSENT: cyanosis, erythema, jaundice Results Laboratory Results: 07/23/20 06:38 07/23/20 06:38 07/22/20 07/22/20 07/22/20 06:32 06:32 06:32 WBC RBC Hgb Hct MCV MCH MCHC RDW Plt Count Retic Count (auto) 1.34 Sodium Potassium Chloride Carbon Dioxide Anion Gap BUN Creatinine Est GFR ( Amer) Glucose Calcium Iron 25.0 L TIBC 255 % Saturation 10 Ferritin 211.00 Vitamin B12 616.0 Cancelled Folate 8.38 07/23/20 07/23/20 06:38 06:38 WBC 5.2 RBC 3.88 Hgb 8.7 L Hct 27.1 L MCV 70 L MCH 22.4 L MCHC 32.1 RDW 23.9 H Plt Count 330 Retic Count (auto) Sodium 140.1 Potassium 4.2 Chloride 105 Carbon Dioxide 28 Anion Gap 7 BUN 13 Creatinine 0.80 Est GFR ( Amer) > 60 Glucose 73 L Calcium 9.4 Iron TIBC % Saturation Ferritin Vitamin B12 Folate Impressions: Foot X-Ray 07/21/20 17:16 IMPRESSION: There is no evidence of soft tissue infection with an air forming organism. The only air seen is in the ulcer itself. Assessment & Plan - Diagnosis (1) Diabetic foot ulcer associated with type 2 diabetes mellitus Qualifiers: Diabetic foot ulcer location: midfoot Laterality: left Non-pressure ulcer stage: with necrosis of bone Qualified Code(s): E11.621 - Type 2 diabetes mellitus with foot ulcer; L97.424 - Non-pressure chronic ulcer of left heel and midfoot with necrosis of bone Is this a current diagnosis for this admission?: Yes - Time Anticipated Discharge Disposition: unknown Anticipated Discharge Timeframe: unknown - Plan Summary Plan Summary: 60-year-old female with a deep left foot ulcer. The patient experiences discomfort and trouble walking. The ulcer appears to be worsening, instead of improving. There is a large portion of the distal metatarsal that has been completely removed (surgically) in the past. This has left the toe free- floating, without much stability. I have provided the patient several options. She has chosen amputation of the left fifth toe, with resection of the ulcer and inflammatory tissue. Risk/benefits discussed, informed consent obtained, and all questions answered.
--- NOTE | 2020-07-23 12:04 | Operative Report ---
Nonrecallable Operative Report DATE OF SURGERY: 07/23/20 PREOPERATIVE DIAGNOSIS: Large, deep chronic diabetic ulcer of the left foot POSTOPERATIVE DIAGNOSIS: Same as above OPERATION: Ray amputation of the left fifth toe SURGEON: JORGE PIERRE ANESTHESIA: LMAC TISSUE REMOVED OR ALTERED: Left fifth toe and portion of metatarsal bone COMPLICATIONS: None apparent ESTIMATED BLOOD LOSS: Minimal PROCEDURE: Drains/implants: 4 x 4 gauze soaked in Betadine. Procedure in detail: After informed consent was obtained, the patient was brought to the operating room and laid in the supine position. The area the left foot was prepped and draped in a normal sterile fashion. An incision was created around the left toe, and extended to the plantar surface, excising the ulcer. The ulcer traveled down to the cut head of the metatarsal bone. There was a large amount of inflammatory tissue in this area. Using electrocautery, all of the hypertrophic/inflammatory tissue was excised. The inflammatory tissue involved the cut edge of the metatarsal. This was trimmed back to healthy appearing bone. The specimen was passed off the field. Hemostasis was achieved using electrocautery and suture ligations. The subcutaneous tissues were reapproximated starting laterally, moving medially, using 2-0 Vicryl suture in simple interrupted fashion. The medial portion was left open. The lateral skin (moving toward the medial aspect) was closed using 2-0 nylon suture in simple interrupted fashion. The medial portion was again left open, to accommodate Betadine soaked 4 x 4 packing. Packing was placed into the wound. A dressing was then placed, and the procedure was concluded. All sponge, instrument, and needle counts were correct x2. Condition: Stable.
[2020-07-23] MEDS: FUROSEMIDE 40 MG TABLET PO SCH (13:17)
[2020-07-23] MEDS: DULOXETINE HCL 30 MG CAPSULE.DR PO SCH ×2 (13:18→17:41)
[2020-07-23] MEDS: POLYETHYLENE GLYCOL 3350 POWDER 17 GM/1 PACKET PO SCH (13:18)
[2020-07-23] MEDS: GABAPENTIN 300 MG CAPSULE PO SCH ×2 (13:19→21:41)
[2020-07-23] MEDS: FLUTICASONE/VILANTEROL 200-25 MCG/DOSE IH SCH (13:19)
[2020-07-23] MEDS: FAMOTIDINE 20 MG TABLET PO SCH ×2 (13:19→21:41)
[2020-07-23] MEDS: NITROGLYCERIN 5 MG (0.2 MG/HR) PATCH.TD24 TD SCH (13:19)
[2020-07-23] MEDS: LOSARTAN POTASSIUM 25 MG TABLET PO SCH (13:19)
[2020-07-23] MEDS: BUSPIRONE HCL 10 MG TABLET PO SCH ×2 (13:19→17:42)
[2020-07-23] MEDS: DOXYCYCLINE HYCLATE 100 MG TABLET PO SCH ×2 (13:20→21:41)
[2020-07-23] MEDS: ATORVASTATIN CALCIUM 40 MG TABLET PO SCH (21:41)
--- NOTE | 2020-07-23 23:35 | CDI QUERY ---
<ZACH BLANCAS - Last Filed: 07/23/20 23:34> CDI Query CDI Review: Documentation in the Medical Record indicates this patient has: Height: 5 ft 8 in Weight: 134.5 kg (295 lbs) Calculated BMI: 44.8 kg/m2 Based on your medical judgement, can you further clarify in the Progress Notes the diagnosis associated with these findings: Morbid Obesity / BMI 44.8 kg/m2 Overweight / BMI 44.8 kg/m2 Obesity / BMI 44.8 kg/m2 Other condition (please specify) None of the above / Not applicable Please note: Obesity is defined as: Class 1: BMI of 30 to < 35 Class 2: BMI of 35 to < 40 Class 3: BMI of > 40 (this is also defined as Morbid Obesity) Overweight: BMI 25 to < 30 Normal weight: BMI 18.5 to < 25 The condition of Morbid Obesity is a significant contributing factor to the health and recovery of a patient. Thank you for your consideration. MACKENZIE Aguirre RN Clinical Technical Supervisor Physician Advisor <GLENIS HANSON - Last Filed: 07/24/20 07:46> CDI Query CDI Review: Class 3: BMI of > 40 (this is also defined as Morbid Obesity) Agree with Query: Yes - Class 3: BMI of > 40 (this is also defined as Morbid Obesity)
--- NOTE | 2020-07-23 23:39 | CDI QUERY ---
<ZACH BLANCAS - Last Filed: 07/23/20 23:38> CDI Query CDI Review: We are seeking further clarification of documentation to reflect the severity of illness of your patient. Per H&P: CHF (congestive heart failure) Is this a current diagnosis for this admission?: Yes Plan: Patient with history congestive heart failure. Not in acute exacerbation at this time. Unable to communicate if she is on medications for this at this time. Will contact her re-[facility] tomorrow to figure out medications. Previous notes reviewed patient previously tx'd with lasix 40mg daily, will continue this at this time. Limit intake, monitor I&Os, low sodium diet. Based on your medical judgement, can you further clarify in the Progress Notes and carry through the Discharge Summary: Type of heart failure: Systolic Diastolic Combined systolic/diastolic Other (please specify) None of the above / Not applicable Thank you for your consideration. MACKENZIE Aguirre RN Clinical Front End Mechanic Physician Advisor <GLENIS HANSON - Last Filed: 07/24/20 07:47> CDI Query CDI Review: CHF: None of the above / Not applicable; not in acute exacerbation Agree with Query: Yes - CHF None of the above / Not applicable
--- NOTE | 2020-07-24 07:57 | PDOC PROGRESS REPORT ---
Subjective Date:: 07/23/20 Subjective:: Day3: Patient seen on afternoon rounds. She is resting in the chair at her bedside. She is just hours s/p left fifth toe amputation. Complains of pain, though minimal. Seen ambulating without difficulty. Has passed BM. Only concern is that she is wanting to go home tomorrow. Otherwise denies fever, chills, CP, SOB, cough, abd pain, NVD. Discussed with nursing VSS. No acute concerns at this time. Reason For Visit: POSSIBLE OSTEOMYELITIS LEFT FOOT, LEFT FOOT Physical Exam Vital Signs: Temp Pulse Resp BP Pulse Ox 97.6 F 88 16 121/56 L 96 07/23/20 13:40 07/23/20 13:40 07/23/20 13:40 07/23/20 13:40 07/23/20 13:40 Intake & Output 07/22/20 07/23/20 07/24/20 06:59 06:59 06:59 Intake Total 660 118 850 Output Total 500 500 Balance 160 118 350 Weight 135.2 kg 134.5 kg Additional comments: General appearance: PRESENT: no acute distress, obese Head exam: PRESENT: atraumatic, normocephalic Eye exam: PRESENT: EOMI, PERRLA. Respiratory exam: PRESENT: clear to auscultation christine, symmetrical, unlabored. ABSENT: tachypnea, wheezes Cardiovascular exam: PRESENT: RRR Extremities exam: PRESENT: full ROM. Pedal edema. Musculoskeletal exam: PRESENT: full ROM ambulates without difficultly. Neurological exam: PRESENT: alert, awake, oriented to person, oriented to place, oriented to time, oriented to situation, CN II-XII grossly intact. ABSENT: motor sensory deficit Psychiatric exam: PRESENT: normal mood Skin exam: PRESENT: dry, intact, warm, other - venous stasis changes bilateral lower extremities, left foot is in a walking boot with yellow sock covering dressing from surgery. Results Laboratory Results: 07/23/20 06:38 07/23/20 06:38 07/23/20 07/23/20 06:38 06:38 WBC 5.2 RBC 3.88 Hgb 8.7 L Hct 27.1 L MCV 70 L MCH 22.4 L MCHC 32.1 RDW 23.9 H Plt Count 330 Sodium 140.1 Potassium 4.2 Chloride 105 Carbon Dioxide 28 Anion Gap 7 BUN 13 Creatinine 0.80 Est GFR ( Amer) > 60 Glucose 73 L Calcium 9.4 Impressions: Foot X-Ray 07/21/20 17:16 IMPRESSION: There is no evidence of soft tissue infection with an air forming organism. The only air seen is in the ulcer itself. Assessment and Plan - Diagnosis (1) Diabetic foot ulcer associated with type 2 diabetes mellitus Qualifiers: Diabetic foot ulcer location: midfoot Laterality: left Non-pressure ulcer stage: with necrosis of bone Qualified Code(s): E11.621 - Type 2 diabetes mellitus with foot ulcer; L97.424 - Non-pressure chronic ulcer of left heel and midfoot with necrosis of bone Is this a current diagnosis for this admission?: Yes Plan: Continue Doxycycline 100mg p.o. BID x6 weeks (Start date 07/22/2020, EOT ) - Discussed patient's need for weekly labs at PCP office, she is understanding and agreeable to this - Will continue doxy while outpatient with weekly PCP labs and f/u for monitoring - Patient understands that current abx regimen subject to change pending pathology report from surgery - There is a chance we may be able to dc home without abx, pending surgery. Infectious disease consulted, note reviewed in detail, recommendations as follows: - Minimally elevated CRP - Bone exposure on imaging makes osteomylitis likely - Wound cx 05/2020 MRSA sensitive to vanc, MTP-SMX, doxy and rifampin - Abx recommendations: - PICC line placement for IV vanc + Rifampin 600mg daily x6 weeks - VS. Oral doxycycline 100mg BID x6 weeks - Weekly CRP, CBC with diff and chemistries if on abx Wound care consulted, note reviewed in detail: - Wound dressings: Pack with acticoat and cover with dry dressing change q3 days Surgery consulted, appreciate recommendations. - Hours s/p amputation left 5th toe with resection of ulcer and inflammatory tissue. - Possible dc home tomorrow pending. (2) Depression Is this a current diagnosis for this admission?: Yes Plan: Patient wit history of schizoaffective disorder, anxiety and depression. Psych consulted for medication review and management, note reviewed in detail, recommendations as below: - CNT Buspar to 5MG twice a day for anxiety/calming effect/depression/sleep - CNT Cymbalta to 30MG twice a day for depression/pain - CNT Gabapentin 600MG twice a day for pain/also serves a mood stabilizer just not as effective as some others - Discontinue Latuda 80MG in the morning for mood stabilization (home medication) - Discontinue Ambien 10MG for sleep as needed (home medication) (3) Diabetes mellitus Qualifiers: Diabetes mellitus type: type 2 Diabetes mellitus assisted insulin use: unspecified assisted insulin use status Diabetes mellitus complication s tatus: with other specified complication Qualified Code(s): E11.69 - Type 2 diabetes mellitus with other specified complication Is this a current diagnosis for this admission?: Yes Plan: Blood sugars appropriate range with SSI. Heme A1c 6.7. Patient is placed on a consistent carb diet. Accu-Cheks before meals and at bedtime with Humalog for sliding scale coverage. Hypoglycemia protocol in place. Registered dietitian snubber consulted. (4) HTN (hypertension) Qualifiers: Hypertension type: essential hypertension Qualified Code(s): I10 - Essential (primary) hypertension Is this a current diagnosis for this admission?: Yes Plan: Cnt current medications, cnt to monitor BP. (5) Anemia Qualifiers: Anemia type: due to chronic kidney disease Chronic kidney disease stage 3 subtype: stage 3a (GFR 45-59) Is this a current diagnosis for this admission?: Yes Plan: History of anemia of chronic disease/inflammation due to chronic infections Oncology consulted, note reviewed in detail recommendations as follows: - Baseline Hgb 7-8. - receiving EPO injections every 2 weeks, most recent 07/17, next scheduled 07/31. - Denies blood transfusion for evangelical reasons - Ferritin and B12 have shown no indication for IV iron or OM B12. - Suspect will improve once osteomylitis has resolved - B12 injection given today (6) Hypothyroidism Is this a current diagnosis for this admission?: Yes Plan: TSH <0.01, FT4 2.70 Discontinue levothyroxine. Will need to f/u with PCP for labs and medication adjustment moving forward. (7) COPD without exacerbation Is this a current diagnosis for this admission?: Yes Plan: Hx COPD utilizes albuterol and Symbicort. Not in acute exacerbation at this time. Continue home medications. (8) CAD (coronary artery disease) Qualifiers: Coronary Disease-Associated Artery/Lesion type: [place] artery [place] vs. transplanted heart: [place] heart Associated angina: without angina Qualified Code(s): I25.10 - Atherosclerotic heart disease of [place] coronary artery without angina pectoris Is this a current diagnosis for this admission?: Yes Plan: With history of coronary artery disease. Previous notes reviewed with history of stent x2. Statin and aspirin daily. (9) CHF (congestive heart failure) Is this a current diagnosis for this admission?: Yes Plan: Patient with history congestive heart failure. Not in acute exacerbation at this time. Cnt lasix 40mg p.o. daily. Limit intake, monitor I&Os, low sodium diet. (10) GERD (gastroesophageal reflux disease) Is this a current diagnosis for this admission?: Yes Plan: History reflux. Initiate PPI management. (11) Obstructive sleep apnea Is this a current diagnosis for this admission?: Yes Plan: CPAP nightly. - Time Time Spent with patient: 25-34 minutes Medications reviewed and adjusted accordingly: Yes Anticipated Discharge Disposition: Home, Self Care Anticipated Discharge Timeframe: within 48 hours
--- NOTE | 2020-07-24 08:13 | PDOC PROGRESS REPORT ---
Subjective Date:: 07/24/20 Subjective:: feels ok, was up ambulating Reason For Visit: POSSIBLE OSTEOMYELITIS LEFT FOOT, LEFT FOOT Physical Exam Vital Signs: Temp Pulse Resp BP Pulse Ox 98.7 F 92 18 151/80 H 98 07/23/20 23:13 07/23/20 23:13 07/23/20 23:13 07/23/20 23:13 07/23/20 23:13 Intake & Output 07/23/20 07/24/20 07/25/20 06:59 06:59 06:59 Intake Total 118 1800 Output Total 500 Balance 118 1300 Weight 134.5 kg 133.1 kg General appearance: PRESENT: no acute distress Head exam: PRESENT: atraumatic Eye exam: PRESENT: EOMI Ear exam: PRESENT: normal external ear exam Mouth exam: PRESENT: moist Teeth exam: PRESENT: poor dentation Neck exam: PRESENT: full ROM Respiratory exam: PRESENT: clear to auscultation christine Cardiovascular exam: PRESENT: RRR Pulses: PRESENT: +1 pedal pulses bilateral Breast: PRESENT: Normal GI/Abdominal exam: PRESENT: soft Rectal exam: PRESENT: deferred Extremities exam: PRESENT: other - left lat foot wound clean min swelling wound open, pack removed Neurological exam: PRESENT: alert Psychiatric exam: PRESENT: appropriate affect Skin exam: PRESENT: dry Results Laboratory Results: 07/23/20 06:38 07/23/20 06:38 07/23/20 07/23/20 06:38 17:25 WBC 5.2 RBC 3.88 Hgb 8.7 L Hct 27.1 L MCV 70 L MCH 22.4 L MCHC 32.1 RDW 23.9 H Plt Count 330 Stool Occult Blood NEGATIVE Impressions: Foot X-Ray 07/21/20 17:16 IMPRESSION: There is no evidence of soft tissue infection with an air forming organism. The only air seen is in the ulcer itself. Assessment & Plan - Time Anticipated Discharge Disposition: Home, Self Care Anticipated Discharge Timeframe: within 24 hours - Plan Summary Plan Summary: s/p left 5th toe amputatiton yesterday this am foot warm wound clean, open distally would cont to do wet to dry dressing changes tid with normal saline pt has a lpn care manager at home and from surgery standpt could be discharged and f/u in 7-10 days for wound check please reonsult if necessary.
--- NOTE | 2020-07-24 08:33 | PDOC PROGRESS REPORT ---
Subjective Date:: 07/24/20 Subjective:: Patient is without complaints today. She states that the surgery on her foot we nt well, but she had some pain with this. None currently. Reason For Visit: POSSIBLE OSTEOMYELITIS LEFT FOOT, LEFT FOOT Physical Exam Vital Signs: Temp Pulse Resp BP Pulse Ox 99.0 F 92 18 139/90 H 98 07/24/20 07:19 07/24/20 07:19 07/24/20 07:19 07/24/20 07:19 07/24/20 07:19 Intake & Output 07/23/20 07/24/20 07/25/20 06:59 06:59 06:59 Intake Total 118 1800 Output Total 500 Balance 118 1300 Weight 134.5 kg 133.1 kg General appearance: PRESENT: no acute distress, morbidly obese Head exam: PRESENT: normocephalic Eye exam: PRESENT: EOMI Respiratory exam: PRESENT: unlabored Neurological exam: PRESENT: alert, awake Psychiatric exam: PRESENT: appropriate affect Skin exam: PRESENT: normal color Results Laboratory Results: 07/23/20 06:38 07/23/20 06:38 07/23/20 07/23/20 06:38 17:25 WBC 5.2 RBC 3.88 Hgb 8.7 L Hct 27.1 L MCV 70 L MCH 22.4 L MCHC 32.1 RDW 23.9 H Plt Count 330 Stool Occult Blood NEGATIVE Impressions: Foot X-Ray 07/21/20 17:16 IMPRESSION: There is no evidence of soft tissue infection with an air forming organism. The only air seen is in the ulcer itself. Assessment & Plan - Diagnosis (1) Anemia Qualifiers: Anemia type: due to chronic kidney disease Chronic kidney disease stage 3 subtype: stage 3a (GFR 45-59) Is this a current diagnosis for this admission?: Yes Plan: Her HGB has remained stable. She will continue EPO injections in my office as previously scheduled. I will sign off. Please call if needed. - Time Time Spent with patient: Less than 15 minutes
[2020-07-24] MEDS: INSULIN LISPRO 100 UNIT/ML 3 ML VIAL SUBCUT SCH ×2 (09:16→12:05)
[2020-07-24] MEDS: BUSPIRONE HCL 10 MG TABLET PO SCH (09:18)
[2020-07-24] MEDS: LOSARTAN POTASSIUM 25 MG TABLET PO SCH (09:18)
[2020-07-24] MEDS: FLUTICASONE/VILANTEROL 200-25 MCG/DOSE IH SCH (09:18)
[2020-07-24] MEDS: FAMOTIDINE 20 MG TABLET PO SCH (09:18)
[2020-07-24] MEDS: GABAPENTIN 300 MG CAPSULE PO SCH (09:19)
[2020-07-24] MEDS: POLYETHYLENE GLYCOL 3350 POWDER 17 GM/1 PACKET PO SCH (09:19)
[2020-07-24] MEDS: FUROSEMIDE 40 MG TABLET PO SCH (09:19)
[2020-07-24] MEDS: NITROGLYCERIN 5 MG (0.2 MG/HR) PATCH.TD24 TD SCH (09:19)
[2020-07-24] MEDS: DULOXETINE HCL 30 MG CAPSULE.DR PO SCH (09:19)
[2020-07-24] MEDS: DOXYCYCLINE HYCLATE 100 MG TABLET PO SCH (09:20)
[2020-07-24 11:00] VITALS: BP 148/75
--- NOTE | 2020-07-24 16:23 | PDOC DISCHARGE SUMMARY ---
Impression - Admit/DC Date/PCP Admission Date/Primary Care Provider: 07/22/20 14:18 TONI BHATTI MD Discharge Date: 07/24/20 - Discharge Diagnosis (1) Diabetic foot ulcer associated with type 2 diabetes mellitus Is this a current diagnosis for this admission?: Yes (2) Depression Is this a current diagnosis for this admission?: Yes (3) Diabetes mellitus Is this a current diagnosis for this admission?: Yes (4) HTN (hypertension) Is this a current diagnosis for this admission?: Yes (5) Anemia Is this a current diagnosis for this admission?: Yes (6) Hypothyroidism Is this a current diagnosis for this admission?: Yes (7) COPD without exacerbation Is this a current diagnosis for this admission?: Yes (8) CAD (coronary artery disease) Is this a current diagnosis for this admission?: Yes (9) CHF (congestive heart failure) Is this a current diagnosis for this admission?: Yes (10) GERD (gastroesophageal reflux disease) Is this a current diagnosis for this admission?: Yes (11) Obstructive sleep apnea Is this a current diagnosis for this admission?: Yes - Additional Information Resuscitation Status: Full Code Discharge Diet: Cardiac, Diabetic Discharge Activity: Activity As Tolerated Referrals: SANCHEZ RDZ MD [ACTIVE STAFF] - 08/12/20 10:15 am (LABS WILL BE DRAWN AT THIS APPT.) JORGE PIERRE MD [ACTIVE STAFF] - 08/03/20 1:45 pm Prescriptions: Buspirone HCl [Buspar 10 mg Tablet] 5 mg PO BID #60 tablet Duloxetine HCl [Cymbalta 30 mg Tory.dr] 30 mg PO BID #60 capsule.dr Gabapentin [Neurontin 300 mg Capsule] 600 mg PO Q12 #90 capsule Doxycycline Hyclate [Vibramycin 100 mg Tablet] 100 mg PO Q12 #84 tablet Home Medications: Albuterol Sulfate [Proair HFA Inhalation Aerosol 8.5 gm MDI] 2 puff IH Q6HP PRN 12/07/18 Atorvastatin Calcium [Lipitor 40 mg Tablet] 40 mg PO QHS 12/07/18 Benztropine Mesylate [Cogentin 1 mg Tablet] 1 mg PO Q12 12/07/18 Budesonide/Formoterol Fumarate [Symbicort HFA 160-4.5 mcg Inhaler 6 gm] 2 puff IH Q12 12/07/18 Nitroglycerin [Nitro-Dur 5 mg (0.2 mg/Hr) Transdermal Patch] 1 patch TD DAILY 12/07/18 Omeprazole 40 mg PO Q12 12/07/18 Naloxegol Oxalate [Movantik 25 mg Tablet] 25 mg PO QAM 06/20/19 Cyanocobalamin (Vitamin B-12) [Vitamin B-12 Inj 1000 Mcg/1 ml Vial] 1 ml IM .MONTHLY 03/31/20 Sitagliptin Phosphate [Januvia 50 mg Tablet] 50 mg PO QAM 03/31/20 Trazodone HCl 100 mg PO QHS 03/31/20 Furosemide [Lasix 40 mg Tablet] 40 mg PO DAILY #30 tablet 04/07/20 Albuterol Sulfate [Ventolin 0.083% Neb 2.5 mg/3 mL Ampul] 3 ml NEB RTTID 07/21/20 Insulin Glargine,Hum.rec.anlog [Lantus Insulin 100 Unit/1 ml 10 ml] 55 unit SUBCUT QAM 07/21/20 Insulin Glargine,Hum.rec.anlog [Lantus Insulin 100 Unit/1 ml 10 ml] 65 units SQ QHS 07/21/20 Insulin Lispro [Humalog Insulin (Lispro) 100 unit/mL] 0 units SQ .PERSLIDINGSCALE 07/21/20 Irbesartan 150 mg PO QPM 07/21/20 Ondansetron [Zofran Odt 4 mg Tablet] 4 mg PO Q4HP PRN 07/21/20 Oxycodone HCl/Acetaminophen [Percocet 7.5-325 mg Tablet] 1 tab PO QIDP PRN 07/21/20 Polyethylene Glycol 3350 [Miralax Powder 17 gm/Packet] 17 gm PO DAILY 07/21/20 Buspirone HCl [Buspar 10 mg Tablet] 5 mg PO BID #60 tablet 07/24/20 Doxycycline Hyclate [Vibramycin 100 mg Tablet] 100 mg PO Q12 #84 tablet 07/24/20 Duloxetine HCl [Cymbalta 30 mg Capsule.] 30 mg PO BID #60 capsule. 07/24/20 Gabapentin [Neurontin 300 mg Capsule] 600 mg PO Q12 #90 capsule 07/24/20 History of Present Illiness History of Present Illness: ASNTOS NAVARRO is a 60 year old female with PMHx DMII, extensive psychiatric history (schizoaffective disorder, bipolar I disorder), CHF, HTN, COPD, CKD, anemia, MARIOLA, CAD with Stent who is a poor historian and historically medically non- compliant who was referred to the ED today by wound-care Dr. Wylie for chronic diabetic ulcer left foot. Patient has been evaluated in the ED on several occasions past month for ulcer and has left AMA. Reports several month hx progressively DM plantar aspect left foot in the area of left 5th metatarsal pad. Reports drainage. Reports associated pain, primarily with ambulation. Notes history of allergies to multiple medications, thus has not received abx tx for this in the past. Evaluation in the ED VSS. Hematology notable for RBC 9.1; without white count. BUN elevated at 21. CRP minimally elevated at 28. Foot x-ray without evidence soft tissue infection, notable ulcer. Hospitalist team is consulted for further evaluation management. Hospital Course Hospital Course: Diabetic foot ulcer associated with type 2 diabetes mellitus Continue Doxycycline 100mg p.o. BID x6 weeks (Start date 07/22/2020, EOT 09/02/2020) - Discussed patient's need for weekly labs at PCP office, she is understanding and agreeable to this - Will continue doxy while outpatient with weekly PCP labs and f/u for monitoring - Patient understands that current abx regimen subject to change pending pathology report Infectious disease consulted, note reviewed in detail, recommendations as follows: - Minimally elevated CRP - Bone exposure on imaging makes osteomylitis likely - Wound cx 05/2020 MRSA sensitive to vanc, MTP-SMX, doxy and rifampin - Abx recommendations: Oral doxycycline 100mg BID x6 weeks with weekly f/u labs with PCP Surgery consulted, appreciate recommendations. - 1 day s/p amputation left 5th toe with resection of ulcer and inflammatory tissue. - Patient stable from surgical standpoint signed off - F/u with surgery 7-10 days Depression: All medication changes discussed with patient, she is understanding and agreeable. Patient wit history of schizoaffective disorder, anxiety and depression. Psych consulted for medication review and management, note reviewed in detail, recommendations as below: - CNT Buspar to 5MG twice a day for anxiety/calming effect/depression/sleep - CNT Cymbalta to 30MG twice a day for depression/pain - CNT Gabapentin 600MG twice a day for pain/also serves a mood stabilizer just not as effective as some others - Discontinue Latuda 80MG in the morning for mood stabilization (home medication) - Discontinue Ambien 10MG for sleep as needed (home medication) Anemia: History of anemia of chronic disease/inflammation due to chronic infections Oncology consulted, note reviewed in detail recommendations as follows: - Baseline Hgb 7-8. - receiving EPO injections every 2 weeks, most recent 07/17, next scheduled 07/31. - Denies blood transfusion for yazidi reasons - Ferritin and B12 have shown no indication for IV iron or OM B12. - Suspect will improve once osteomylitis has resolved - B12 injection given F/u with Dr. Nguyen outpatient setting as scheduled on 07/31. Hypothyroidism: TSH <0.01, FT4 2.70. Discontinue levothyroxine. F/u with PCP for labs and medication adjustment moving forward. Pt agreeing and understanding. Physical Exam Vital Signs: Temp Pulse Resp BP Pulse Ox 99.0 F 92 18 148/75 H 98 07/24/20 10:59 07/24/20 10:59 07/24/20 10:59 07/24/20 10:59 07/24/20 10:59 Intake & Output 07/23/20 07/24/20 07/25/20 06:59 06:59 06:59 Intake Total 118 1800 Output Total 500 Balance 118 1300 Weight 134.5 kg 133.1 kg Additional comments: General appearance: PRESENT: no acute distress, obese Head exam: PRESENT: atraumatic, normocephalic Eye exam: PRESENT: EOMI, PERRLA. Respiratory exam: PRESENT: clear to auscultation christine, symmetrical, unlabored. ABSENT: tachypnea, wheezes Cardiovascular exam: PRESENT: RRR Extremities exam: PRESENT: full ROM. Pedal edema. L > R. Calf non-TTP. Musculoskeletal exam: PRESENT: full ROM ambulates without difficultly. Neurological exam: PRESENT: alert, awake, oriented to person, oriented to place, oriented to time, oriented to situation, CN II-XII grossly intact. ABSENT: motor sensory deficit Psychiatric exam: PRESENT: normal mood Skin exam: PRESENT: dry, intact, warm, other - venous stasis changes bilateral lower extremities, left foot is in a walking boot with yellow sock covering dressing from surgery. Results Laboratory Results: WBC 5.2 10^3/uL (4.0-10.5) 07/23/20 06:38 RBC 3.88 10^6/uL (3.72-5.28) 07/23/20 06:38 Hgb 8.7 g/dL (12.0-15.5) L 07/23/20 06:38 Hct 27.1 % (36.0-47.0) L 07/23/20 06:38 MCV 70 fl (80-97) L 07/23/20 06:38 MCH 22.4 pg (27.0-33.4) L 07/23/20 06:38 MCHC 32.1 g/dL (32.0-36.0) 07/23/20 06:38 RDW 23.9 % (11.5-14.0) H 07/23/20 06:38 Plt Count 330 10^3/uL (150-450) 07/23/20 06:38 Lymph % (Auto) 27.7 % (13-45) 07/22/20 06:32 Labette % (Auto) 12.4 % (3-13) 07/22/20 06:32 Eos % (Auto) 3.1 % (0-6) 07/22/20 06:32 Baso % (Auto) 0.6 % (0-2) 07/22/20 06:32 Reticulocyte # 0.042 10^6/uL (0.028-0.122) 07/22/20 06:32 Absolute Neuts (auto) 3.8 10^3/uL (1.7-8.2) 07/22/20 06:32 Absolute Lymphs (auto) 1.8 10^3/uL (0.5-4.7) 07/22/20 06:32 Absolute Monos (auto) 0.8 10^3/uL (0.1-1.4) 07/22/20 06:32 Absolute Eos (auto) 0.2 10^3/uL (0.0-0.6) 07/22/20 06:32 Absolute Basos (auto) 0.0 10^3/uL (0.0-0.2) 07/22/20 06:32 Seg Neutrophils % 56.2 % (42-78) 07/22/20 06:32 Retic Count (auto) 1.34 % (0.66-2.85) 07/22/20 06:32 Sodium 140.1 mmol/L (137-145) 07/23/20 06:38 Potassium 4.2 mmol/L (3.6-5.0) 07/23/20 06:38 Chloride 105 mmol/L (98-107) 07/23/20 06:38 Carbon Dioxide 28 mmol/L (22-30) 07/23/20 06:38 Anion Gap 7 (5-19) 07/23/20 06:38 BUN 13 mg/dL (7-20) 07/23/20 06:38 Creatinine 0.80 mg/dL (0.52-1.25) 07/23/20 06:38 Est GFR ( Amer) > 60 (>60) 07/23/20 06:38 Est GFR (MDRD) Non-Af > 60 (>60) 07/23/20 06:38 Glucose 73 mg/dL (75-110) L 07/23/20 06:38 POC Glucose 108 mg/dL (70-110) 07/24/20 06:04 Hemoglobin A1c % 6.7 % (4.7-6.0) H 07/22/20 06:32 Lactic Acid 0.9 mmol/L (0.7-2.1) 07/21/20 16:36 Calcium 9.4 mg/dL (8.4-10.2) 07/23/20 06:38 Magnesium 1.7 mg/dL (1.6-2.3) 07/22/20 06:32 Iron 25.0 ug/dL (37-170) L 07/22/20 06:32 TIBC 255 ug/dL (250-450) 07/22/20 06:32 % Saturation 10 % 07/22/20 06:32 Ferritin 211.00 ng/mL (11.1-264.0) 07/22/20 06:32 Total Bilirubin 0.3 mg/dL (0.2-1.3) 07/21/20 16:36 Direct Bilirubin 0.3 mg/dL (0.0-0.4) 07/21/20 16:36 Neonat Total Bilirubin Not Reportable 07/21/20 16:36 Neonat Direct Bilirubin Not Reportable 07/21/20 16:36 Neonat Indirect Bili Not Reportable 07/21/20 16:36 AST 27 U/L (14-36) 07/21/20 16:36 ALT 17 U/L (<35) 07/21/20 16:36 Alkaline Phosphatase 213 U/L (38-126) H 07/21/20 16:36 C-Reactive Protein 28.0 mg/L (<10.0) H 07/21/20 16:36 Total Protein 7.5 g/dL (6.3-8.2) 07/21/20 16:36 Albumin 3.6 g/dL (3.5-5.0) 07/21/20 16:36 Vitamin B12 616.0 pg/mL (239-931) 07/22/20 06:32 Vitamin B12 Cancelled 07/22/20 06:32 Folate 8.38 ng/mL (>2.76) 07/22/20 06:32 TSH < 0.01 uIU/mL (0.47-4.68) L 07/22/20 06:32 Free T4 2.70 ng/dL (0.78-2.19) H 07/22/20 06:32 Stool Occult Blood NEGATIVE (NEGATIVE) 07/23/20 17:25 Influenza A (RT-PCR) NEGATIVE (NEGATIVE) 07/22/20 18:30 Influenza B (RT-PCR) NEGATIVE (NEGATIVE) 07/22/20 18:30 RSV (RT-PCR) NEGATIVE (NEGATIVE) 07/22/20 18:30 SARS-CoV-2 Rap RNA(RT-PCR) NEGATIVE (NEGATIVE) 07/22/20 18:30 Impressions: Foot X-Ray 07/21/20 17:16 IMPRESSION: There is no evidence of soft tissue infection with an air forming organism. The only air seen is in the ulcer itself. Plan Plan of Treatment: DM ulcer: Doxyxycline 100mg BID x6 weeks. EOT 09/02/2020. F/u PCP weekly for labs. Will contact regarding path results and make necessary medication adjustments at that time. F/u surgery 7-10days. Time Spent: Greater than 30 Minutes Stroke Is this a Stroke Patient?: No Acute Heart Failure Is this a Heart Failure Patient?: No
== END 2020-07-24 12:00 | disposition home health service (06) | DRG 617 ==
LOC: ER 15:42 → INTOOBSV 19:32 → EEVIPCON 19:32 → EH 19:32 → 4S 21:35 → OBSVTOIN 07-22 14:18
PROVIDERS: ADMIT Internal Medicine; ATTEND Physician Assistant
PROC: 0Y6N0Z8 Detachment at Left Foot, Complete 5th Ray, Open Approach (ICD-10-PCS; principal; 2020-07-23 14:00)
DX: E11.621 Type 2 diabetes mellitus with foot ulcer (principal); M86.9 Osteomyelitis, unspecified; L97.424 Non-pressure chronic ulcer of left heel and midfoot with necrosis of bone; I13.0 Hypertensive heart and chronic kidney disease with heart failure and stage 1 through stage 4 chronic kidney disease, or unspecified chronic kidney disease; Z68.41 Body mass index [BMI] 40.0-44.9, adult; I50.9 Heart failure, unspecified; I25.10 Atherosclerotic heart disease of native coronary artery without angina pectoris; J44.9 Chronic obstructive pulmonary disease, unspecified; E11.22 Type 2 diabetes mellitus with diabetic chronic kidney disease; N18.31 Chronic kidney disease, stage 3a; D63.1 Anemia in chronic kidney disease; K21.9 Gastro-esophageal reflux disease without esophagitis; F43.10 Post-traumatic stress disorder, unspecified; E03.9 Hypothyroidism, unspecified; E66.01 Morbid (severe) obesity due to excess calories; F25.0 Schizoaffective disorder, bipolar type; G47.33 Obstructive sleep apnea (adult) (pediatric); Z88.6 Allergy status to analgesic agent; Z88.1 Allergy status to other antibiotic agents; Z88.5 Allergy status to narcotic agent; Z88.0 Allergy status to penicillin; Z88.2 Allergy status to sulfonamides; Z95.5 Presence of coronary angioplasty implant and graft; Z95.1 Presence of aortocoronary bypass graft; Z79.84 Long term (current) use of oral hypoglycemic drugs; Z79.4 Long term (current) use of insulin; Z79.891 Long term (current) use of opiate analgesic; Z79.51 Long term (current) use of inhaled steroids; Z79.899 Other long term (current) drug therapy
CPT/HCPCS: 01480; 36415; 80048; 80053; 82272; 82607; 82728; 82746; 82962; 83036; 83540; 83550; 83605; 83735; 84439; 84443; 85025; 85027; 85045; 86140; 87040; 88305; 88311; 99281; 0241U; C9803; G0378; J2020; J2250; J2704; J3010; J3420; J3490; J7060; S0119